=== PATIENT | female | born 1945 | race Caucasian/White ===

== ENCOUNTER 2023-05-03 11:07 | Outpatient (OUT) | payer MEDICARE, OTHER, SELFPAY ==
[2023-05-03 11:45] LABS: Basophils Absolute Auto 0.1 10^3/uL (0.0-0.1); Basophils Percent Auto 0.6 % (0.2-2.0); Eosinophils Absolute Auto 0.2 10^3/uL (0.0-0.7); Eosinophils Percent Auto 1.8 % (0.9-7.0); Hematocrit 43.7 % (36.0-48.0); Hemoglobin 14.1 g/dL (12.0-16.0); Immature Granulocytes Abs Auto 0.06 10^3/uL (0.00-0.03); Immature Granulocytes Pct Auto 0.7 % (0.0-0.5); Lymphocytes Absolute Auto 1.8 10^3/uL (1.2-3.8); Lymphocytes Percent Auto 20.6 % (20.5-60.0); Mean Corpuscular HGB Conc 32.3 g/dL (29.9-35.2); Mean Corpuscular Hemoglobin 30.7 pg (26.7-34.0); Mean Platelet Volume 10.1 fL (9.5-13.5); Monocytes Absolute Auto 0.8 10^3/uL (0.3-0.8); Monocytes Percent Auto 9.7 % (1.7-12.0); Neutrophils Absolute Auto 5.7 10^3/uL (1.4-6.5); Neutrophils Percent Auto 66.6 % (43.0-75.0); Platelet Count 231 10^3/uL (150-450); Red Cell Distribution Width 14.2 % (11.0-15.0); White Blood Count 8.6 10^3/uL (4.0-11.0)
[2023-05-03 11:47] LABS: Estimated Average Glucose 108 mg/dL; Glycohemoglobin A1C 5.4 % (4.5-6.2)
[2023-05-03 12:23] LABS: Anion Gap 14.1; Carbon Dioxide 27.1 mmol/L (21.0-32.0); Chloride 103 mmol/L (98-107); Estimated GFR (African America >60 (>=60); Estimated GFR (Non-African Ame >60 (>=60); Glucose 108 mg/dL (74-106); Potassium 4.2 mmol/L (3.5-5.1); Sodium 140 mmol/L (136-145); Thyroid Stimulating Hormone 1.522 uIU/mL (0.358-3.740)
[2023-05-03 13:04] LABS: D Dimer 1.28 mg/L FEU (<=0.59)
--- NOTE | 2023-05-03 13:52 | US_ITS ---
The [place] [address] Patient Name: MEGAN HERNANDEZ MRN: [id number] date: 1945 Sex: F Assigned Patient Location: LAB Current Patient Location: LAB Accession/Order Number: [id number] Exam Date: 05/03/2023 13:53 Report Date: 05/03/2023 16:14 At the request of: ERIN MCWILLIAMS Procedure: US venous doppler LE BI EXAMINATION: US venous doppler LE BI HISTORY: Bilateral leg pain, Elevated d-dimer R79.89, I83.813 COMPARISON: No relevant comparison available. FINDINGS: REGION: Bilateral lower extremities THROMBI: None. COMPRESSIBILITY: Normal compressibility. FLOW: Normal waveform and antegrade flow between 5 and 20 cm/s. OTHER: None. US/US venous doppler LE BI IMPRESSION: 1. No deep vein thrombus within the right or left lower extremity. Electronically authenticated by: EWELINA HOGUE Date: 05/03/2023 16:14
== END 2023-05-03 11:08 | disposition home or self-care (01) ==
LOC: LAB 11:12
PROVIDERS: PCP Internal Medicine; Visit Provider Internal Medicine
DX: I83.813 Varicose veins of bilateral lower extremities with pain (principal); M79.604 Pain in right leg; R73.01 Impaired fasting glucose; I10 Essential (primary) hypertension; R53.83 Other fatigue; R79.89 Other specified abnormal findings of blood chemistry
CPT/HCPCS: 36415; 80048; 83036; 84443; 85025; 85378; 93970

== ENCOUNTER 2023-06-10 10:03 | Outpatient (OUT) | payer MEDICARE, OTHER, SELFPAY ==
--- NOTE | 2023-06-10 10:07 | MR_ITS ---
The [address] [address] Patient Name: MEGAN HERNANDEZ MRN: [id number] date: 1945 Sex: F Assigned Patient Location: MRI Current Patient Location: MRI Accession/Order Number: [id number] Exam Date: 06/10/2023 10:28 Report Date: 06/10/2023 12:56 At the request of: ERIN MCWILLIAMS Procedure: MR lumbar spine wo con MR lumbar spine wo con, 06/10/2023 10:28 AM EDT INDICATION central stenosis of the spinal canal. COMPARISON: There is no appropriate prior study for comparison. TECHNIQUE: Multiplanar, multisequential MRI images of lumbar spine were obtained without contrast. FINDINGS: For dictation purposes, the lowest complete disc space in the lumbar spine considered as L5-S1. There is normal physiologic lumbar lordosis. The vertebral height is preserved. There is grade 1 anterolisthesis of L4 on L5. Left-sided kidney lesions with T2 prolongation not fully characterized by this study and statistically may suggest simple renal cyst. The conus medullaris is at the level of L1. No signal abnormality within the visualized spinal cord is noted. Level of T12-L1 is unremarkable. No neural foraminal narrowing or canal stenoses at the level of L1-L2 is noted. At the level of L2-L3, there are disc bulge with mild bilateral neuroforaminal narrowing and no canal stenosis. At the level of L3-4, there are disc bulge with moderate right and tamhbwai-mu-rbddge left neuroforaminal narrowing and moderate to severe canal stenosis. There is significant ligamentum flavum thickening and facet joint arthrosis at this level. At the level of L4-5, there are grade 1 anterolisthesis discovering disc with moderate bilateral neuroforaminal narrowing and severe canal stenosis. There is significant ligamentum flavum thickening and facet joint arthrosis at this level. At the level of L5-S1, there are disc bulge with mild left neuroforaminal narrowing and no canal stenosis. The paraspinal muscles are unremarkable. MR/MR lumbar spine wo con IMPRESSION: Moderate degenerative changes of lumbar spine in particular at L3-L4 and L4-L5 with significant neuroforaminal narrowing and severe canal stenosis. Electronically authenticated by: ADA GORE Date: 06/10/2023 12:56
== END 2023-06-10 10:04 | disposition home or self-care (01) ==
LOC: MRI 10:03
PROVIDERS: PCP Internal Medicine; Visit Provider Internal Medicine
DX: M48.00 Spinal stenosis, site unspecified (principal)
CPT/HCPCS: 72148

== ENCOUNTER 2023-08-27 15:21 | Outpatient (OUT) | payer MEDICARE, OTHER, SELFPAY ==
--- NOTE | 2023-08-27 15:36 | XR_ITS ---
The [place] [id number] Patient Name: MEGAN HERNANDEZ MRN: [id number] date: 1945 Sex: F Assigned Patient Location: [facility] Current Patient Location: [facility] Accession/Order Number: [id number] Exam Date: 08/27/2023 15:43 Report Date: 08/28/2023 07:20 At the request of: ERIN MCWILLIAMS Procedure: XR lumbar spine 2-3V EXAMINATION: XR lumbar spine 2-3V HISTORY: Acute Left Sided Low Back Pain M54.50 COMPARISON: No relevant comparison available. FINDINGS: BONES: 6 mm anterolisthesis of L5 in relation L4 and S1. Severe degenerative spondylosis and facet osteoarthropathy DISC SPACES: Moderate to severe multilevel disc space narrowing with endplate sclerosis. Vacuum disc L4-S1 PARASPINOUS: Negative. No paraspinous abnormality is seen. OTHER: Atherosclerosis XR/XR lumbar spine 2-3V IMPRESSION: Moderate to severe degenerative changes Electronically authenticated by: MELANIE BECKER Date: 08/28/2023 07:20
--- NOTE | 2023-08-27 15:36 | XR_ITS ---
The [address] [address] Patient Name: MEGAN HERNANDEZ MRN: [id number] date: 1945 Sex: F Assigned Patient Location: [facility] Current Patient Location: Accession/Order Number: [id number] Exam Date: 08/27/2023 15:43 Report Date: 08/28/2023 07:17 At the request of: ERIN MCWILLIAMS Procedure: XR hip LT 2V w/ pelvis PROCEDURE: XR hip LT 2V w/ pelvis COMPARISON: None. HISTORY: Left Hip PAin M25.552 FINDINGS: BONES:No acute fracture or dislocation. Moderate bilateral hip osteoarthropathy. Moderate to severe degenerative changes of the lumbar spine SOFT TISSUES:Negative. No visible soft tissue swelling. EFFUSION:None visible. OTHER: Negative. XR/XR hip LT 2V w/ pelvis IMPRESSION: Moderate osteoarthritis Electronically authenticated by: MELANIE BECKER Date: 08/28/2023 07:17
== END 2023-08-27 15:22 | disposition home or self-care (01) ==
LOC: RAD 15:23
PROVIDERS: PCP Internal Medicine; Visit Provider Internal Medicine
DX: M54.50 Low back pain, unspecified (principal); M25.552 Pain in left hip; M51.36 Other intervertebral disc degeneration, lumbar region
CPT/HCPCS: 72100; 73502

== ENCOUNTER 2023-10-07 12:23 | Outpatient (OUT) | payer MEDICARE, OTHER, SELFPAY ==
--- OUTSIDE RECORDS SUMMARY | 2023-10-07 12:26 | XMS_ITS | CCD ---
Author Name Unknown Address [address] [place] [address] Organization [facility] Care Team Providers Care Trimmer Operator Name Role Phone BELTRAN, DR ROSI Thornton Primary Care Unavailable ANA, DR CR Admitting Unavailable HAY, DR CR Attending Unavailable HAY, DR CR Consulting Unavailable , Hang Consulting Unavailable GONG, DR ROSI Thornton Primary Care Unavailable PAY, DR CRANE Admitting Unavailable PAY, DR CRANE Attending Unavailable PAY, DR CRANE Consulting Unavailable Monzon, Alvin Consulting Unavailable NILL, DR VIGIL Consulting Unavailable FAWWASarah, Admitting Unavailable FAWDANISH, Attending Unavailable GONG, DR ROSI Thornton Primary Care Unavailable Policaro, Geovani Consulting Unavailable Jessica, Moreno Consulting Unavailable ROBBIE, RIYA Consulting Unavailable FAWWASarah, Consulting Unavailable GONG, DR ROSI Thornton Primary Care Unavailable OJ, DR KHAN Admitting Unavailable BALL, DR KHAN Attending Unavailable BALL, DR KHAN Consulting Unavailable GONG, DR ROSI Thornton Admitting Unavailable GONG, DR ROSI Thornton Attending Unavailable GONG, DR ROSI Thornton Consulting Unavailable GONG, DR ROSI Thornton Primary Care Unavailable Anurag Bolton Unavailable Unavailable Unavailable Anurag Bolton DO Unavailable Carlos Gong Unavailable Anurag Bolton Unavailable Allergies Allergy Classification Reported Allergen(s) Allergy Type Date of Onset Reaction(s) Facility (1 source) patient allergy list reviewed by nurse or physicia Propensity to adverse reactions 8 Comment:Done Ofuz Other (1 source) Allergies Reconciled Propensity to adverse reactions Unknown Ofuz Other Medications Current Medications Medication Drug Class(es) Dates Sig (Normalized) Sig (Original) atenolol 50 mg oral tablet (16 sources) beta-Adrenergic Louis take 1 tablet by mouth every twenty-four hours Atenolol 50 MG 1 tablet Orally Once a day for 90 days Active 24 hr buPROPion hydrochloride 150 mg extended release oral tablet (9 sources) Aminoketone Start: 05-29-2023 take 1 tablet by mouth every twenty-four hours buPROPion HCl ER (XL) 150 MG 1 tablet in the morning Orally Once a day for 30 days May, Active escitalopram 10 mg oral tablet (11 sources) Serotonin Reuptake Inhibitor Start: 05-06-2023 take 1 tablet by mouth every twenty-four hours Escitalopram Oxalate 10 MG 1 tablet Orally Once a day for 30 days Apr, Active FLUoxetine 20 mg oral tablet (20 sources) Serotonin Reuptake Inhibitor Start: 03-08-2022 take 1 capsule by mouth once daily FLUoxetine HCl 20MG FLUoxetine HCl 20MG, 3 (three) Capsule daily # 90, 03/08/2022, Ref. x1. Active Oral daily for 30 *Pick strength-form from Busap for eRX* Feb, Active Start: 12-08-2021 take 3 capsules by m out once daily FLUoxetine (PROZAC) 20 mg capsule Take 60 mg by mouth once daily. 0 12/08/2021 Active Start: 09-06-2021 take 1 capsule by mo ut three times daily FLUoxetine HCl - 20 MG Oral Capsule TAKE 1 CAPSULE 3 times daily Quantity: 0 Refills: 0 Ordered: 06-Sep-2021 DO Start : 06-Sep-2021 Active FLUoxetine HCl 6 0 MG TAKE 3 CAPSULES BY MOUTH EVERY DAY Orally Once a day for 90 days Active Comment on above: Take 60 mg by mouth once daily. Triamcinolone (1 source) Corticosteroid Start: 12-25-2021 Triamcinolone Acetonide 0.1% Triamcinolone Acetonide 0.1%, 1 (one) Application two times daily # 30, 12/25/2021, Ref. x1. Active External two times daily for 30 *Pick strength-form from Busap for eRX* Dec, Active Completed/Discontinued Medications Medication Drug Class(es) Dates Sig (Normalized) Sig (Original) etodolac 500 mg oral tablet (6 sources) Nonsteroidal Anti-inflammatory Drug Start: 12-05-20 23 take 1 tablet by mouth every twelve hours Etodolac 500 MG 1 tablet with food Orally Twice a day for 15 days Aug, Not-Taking/PRN hydroCHLOROthiazide 25 mg oral tablet (17 sources) Thiazide Diuretic Start: 08-02-20 21 take 1 tablet by mouth once daily hydroCHLOROthiazide 25 MG Oral Tablet TAKE 1 TABLET DAILY. Quantity: 0 Refills: 0 Ordered: 02-Aug-2021 DO Start : 02-Aug-2021 Active hydrocortisone 25 mg/ml topical cream (2 sources) Corticosteroid Start: 11-08-19 22 hydrocortisone 2.5 % cream APPLY TO AFFECTED AREAS ON FACE TWICE A DAY FOR FLARES SATURDAY - SATURDAY, WEEKENDS OFF 0 11/08/2021 Active Comment on above: APPLY TO AFFECTED AR EAS ON FACE TWICE A DAY FOR FLARES SATURDAY - SATURDAY, WEEKENDS OFF metoprolol tartrate 50 mg oral tablet (15 sources) beta-Adrenergic Louis Start: 08-15-20 21 take 1 tablet by mouth twice daily Metoprolol Tartrate 50 MG Oral Tablet Take 1 tablet twice daily Quantity: 180 Refills: 3 Ordered: 01-Sep-2021 DO Start : 15-Aug-2021 Active omeprazole 40 mg delayed release oral capsule (16 sources) Proton Pump Inhibitor Start: 11-30-19 21 take 1 capsule by mouth once daily as needed Omeprazole 40 MG Omeprazole 40MG, 1 (one) Capsule daily # 30, 12/08/2021, Ref. x3. Active Oral daily for 0 Nov, Not-Taking/PRN Problems Active Problems Problem Classification Problem Date Documented Da te Episodic/Chronic Abdominal pain (4 sources) Unspecified abdominal pain; Translations: [UNSPECIFIED ABDOMINAL PAIN] Onset: 07-19-2021 Episodic Anxiety disorders (1 source) Other specified anxiety disorders; Translations: [OTHER SPECIFIED ANXIETY DISORDERS] Onset: 09-01-2021 Chronic Cardiac dysrhythmias (13 sources) Paroxysmal atrial fibrillation; Translations: [Paroxysmal atrial fibrillation with RVR] Onset: 09-23-2021 Chronic Complications of surgical procedures or medical care (12 sources) Postprocedural intestinal obstruction, unspecified as to partial versus complete; Translations: [Postprocedural intestinal obstruction, unspecified as to partial versus complete] Episodic Diabetes mellitus without complication (14 sources) Impaired fasting glycemia; Translations: [Impaired fasting glucose] Onset: 06-22-2015 Resolved: 12-23-2021 Episodic Diseases of white blood cells (1 source) Elevated white blood cell count, unspecified; Translations: [ELEVATED WHITE BLOOD CELL COUNT UNS] Onset: 08-21-2021 Chronic Disorders of lipid metabolism (12 sources) Pure hypercholesterolemia ; Translations: [Pure hypercholesterolemia , unspecified] Chronic Disorders of teeth and jaw (1 source) Other specified disorders of teeth and supporting structures; Translations: [OTH SPEC DISORDERS TEETH SUPP STRCT] Onset: 09-01-2021 Episodic Esophageal disorders (20 sources) Chalasia of lower esophageal sphincter; Translations: [Cardiochalasia] Resolved: 12-23-2021 Chronic Esophageal disorders (5 sources) Esophageal disorders; Translations: [Gastro-esophageal reflux disease with esophagitis, without bleeding] Essential hypertension (20 sources) Essential (primary) hypertension; Translations: [Benign essential hypertension] Onset: 05-04-2014 Resolved: 12-23-2021 Chronic Fluid and electrolyte disorders (1 source) Hypokalemia; Translations: [HYPOKALEMIA] Onset: 08-21-2021 Episodic Genitourinary symptoms and ill-defined conditions (13 sources) Personal history of urinary (tract) infections; Translations: [Dysuria] Onset: 08-21-2021 Episodic Intestinal obstruction without hernia (3 sources) Partial intestinal obstruction, unspecified as to cause; Translations: [PART INTESTINAL OBST UNS TO CAU] Onset: 07-29-2021 Episodic Malaise and fatigue (1 source) Other fatigue Episodic Menopausal disorders (15 sources) Menopausal and postmenopausal disorders; Translations: [Menopausal and female climacteric states] Onset: 06-22-2021 Resolved: 06-22-2021 Chronic Mood disorders (20 sources) Depression; Translations: [Recurrent major depression in full remission] Onset: 05-04-2014 Resolved: 12-23-2021 Chronic Osteoarthritis (5 sources) Osteoarthritis of left hip joint; Translations: [Unilateral primary osteoarthritis, left hip] Chronic Other aftercare (1 source) Other joint terminal attack controller (current) drug therapy; Translations: [OTH DIRECTOR EXTERNAL COMMUNICATIONS CURRENT DRUG THERAPY] Onset: 08-21-2021 Episodic Other connective tissue disease (1 source) Pain in right leg Episodic Other diseases of veins and lymphatics (1 source) Lymphedema of bilateral lower limbs; Translations: [Other lymphedema] Chronic Other inflammatory condition of skin (12 sources) Intertrigo; Translations: [Erythema intertrigo] Episodic Other nervous system disorders (1 source) Disorder of the peripheral nervous system; Translations: [Hereditary and idiopathic neuropathy, unspecified] Chronic Other nervous system disorders (14 sources) Sensory neuropathy; Translations: [Polyneuropathy, unspecified] Chronic Other nervous system disorders (2 sources) Polyneuropathy, unspecified; Translations: [Sensory neuropathy G62.9] Onset: 06-22-2021 Resolved: 12-28-2021 Chronic Other nervous system disorders (2 sources) Chronic pain; Translations: [Other chronic pain] Chronic Other nervous system disorders (1 source) Abnormal gait; Translations: [Unspecified abnormalities of gait and mobility] Episodic Other nervous system disorders (12 sources) Paresthesia; Translations: [Paresthesia of skin] Episodic Other non-traumatic joint disorders (2 sources) Pain in left hip Episodic Other nutritional; endocrine; and metabolic disorders (1 source) Obesity, unspecified; Translations: [OBESITY UNSPECIFIED] Onset: 08-21-2021 Chronic Other nutritional; endocrine; and metabolic disorders (1 source) Body mass index (BMI) 35.0-35.9, adult; Translations: [BODY MASS INDEX BMI 35.0-35.9 ADULT] Onset: 08-21-2021 Chronic Other nutritional; endocrine; and metabolic disorders (11 sources) Severe obesity; Translations: [Morbid (severe) obesity due to excess calories] Chronic Other nutritional; endocrine; and metabolic disorders (11 sources) Body mass index 40+ - severely obese; Translations: [Body mass index (BMI) 40.0-44.9, adult] Chronic Other nutritional; endocrine; and metabolic disorders (4 sources) Morbid (severe) obesity due to excess calories Chronic Other nutritional; endocrine; and metabolic disorders (4 sources) Body mass index (BMI) 40.0-44.9, adult Chronic Other screening for suspected conditions (not mental disorders or infectious disease) (2 sources) Blood chemistry abnormal; Translations: [Abnormal finding of blood chemistry, unspecified] Episodic Phlebitis; thrombophlebitis and thromboembolism (14 sources) H/O: Deep vein thrombosis; Translations: [Personal history of venous thrombosis and embolism] Onset: 04-10-2018 Resolved: 12-23-2021 Episodic Residual codes; unclassified (1 source) Acquired absence of both cervix and uterus; Translations: [ACQUIRED ABSENCE BOTH CERVIX AND UTERUS] Onset: 09-01-2021 Episodic Residual codes; unclassified (1 source) Acquired absence of other specified parts of digestive tract; Translations: [ACQ ABSENCE OTH PART DIGESTV TRACT] Onset: 08-21-2021 Episodic Residual codes; unclassified (13 sources) Postmenopausal state; Translations: [Asymptomatic postmenopausal status] Onset: 03-12-2018 Resolved: 12-23-2021 Episodic Residual codes; unclassified (12 sources) Family history of breast cancer; Translations: [Family history of malignant neoplasm of breast] Episodic Spondylosis; intervertebral disc disorders; other back problems (2 sources) Lumbar spondylosis; Translations: [Spondylosis without myelopathy or radiculopathy, lumbar region] Chronic Spondylosis; intervertebral disc disorders; other back problems (20 sources) Spinal stenosis, lumbar region with neurogenic claudication; Translations: [Spinal stenosis of lumbar region] Onset: 04-08-2015 Resolved: 01-26-2022 Episodic Unclassified (1 source) CONTACT W/AND (SUSP) EXPOS COVID-19; Translations: [CONTACT W/AND (SUSP) EXPOS COVID-19] Onset: 08-21-2021 Varicose veins of lower extremity (13 sources) Varicose veins of lower extremity; Translations: [Varicose veins of bilateral lower extremities with pain] Episodic Past or Other Problems Problem Classification Problem Date Documented Da te Episodic/Chronic Cancer of uterus (13 sources) Personal history of malignant neoplasm of other parts of uterus; Translations: [History of malignant neoplasm of female genital organ] Onset: 09-23-2009 Episodic Deficiency and other anemia (12 sources) Anemia; Translations: [Anemia, unspecified] Onset: 06-22-2015 Resolved: 12-23-2021 Episodic Nonmalignant breast conditions (12 sources) Pain of breast; Translations: [Mastodynia] Resolved: 12-23-2021 Episodic Nonspecific chest pain (20 sources) Other chest pain; Translations: [Chest pain, unspecified] Onset: 09-22-2020 Resolved: 12-23-2021 Episodic Other connective tissue disease (12 sources) Pain in limb; Translations: [Pain in right lower leg] Onset: 04-10-2018 Resolved: 12-23-2021 Episodic Other nervous system disorders (1 source) Hereditary peripheral neuropathy; Translations: [Unspecified hereditary and idiopathic peripheral neuropathy] Onset: 06-22-2015 Resolved: 12-23-2021 Chronic Other non-traumatic joint disorders (1 source) Arthralgia of the ankle and/or foot; Translations: [Pain in joint, ankle and foot] Onset: 03-12-2018 Resolved: 12-23-2021 Episodic Other nutritional; endocrine; and metabolic disorders (13 sources) Obesity; Translations: [Obesity, unspecified] Resolved: 01-26-2022 Chronic Other nutritional; endocrine; and metabolic disorders (1 source) Obese class I; Translations: [Body mass index 34.0-34.9, adult] Onset: 04-10-2018 Resolved: 12-23-2021 Chronic Residual codes; unclassified (1 source) Family history of diabetes mellitus; Translations: [Family history of diabetes mellitus] Onset: 05-04-2014 Resolved: 12-23-2021 Episodic Unclassified (1 source) Never smoked tobacco; Translations: [Never a smoker] Unclassified (2 sources) Acute left-sided low back pain without sciatica M54.50 Urinary tract infections (17 sources) Urethral syndrome, unspecified; Translations: [Urinary tract infection, site not specified] Onset: 07-20-2021 Resolved: 12-23-2021 Episodic Results Test Name Value Interpretation Reference Range Facility [facility] 02-01-2022 [facility] Telephone (EVAMN) ARELI HAWKINS ([id number]) 1945 F Date Time Provider Department 02/01/22 MARIE LEA During your visit today, we recorded the following information about you: Marie Lea MD 02/01/2022 11:12 AM Signed Spoke to patient over the phone regarding recent test results. No obvious etiology to her symptoms, and at the last visit was noted that her symptoms were out of proportion to the signs of her physical exam, and suspected that her symptoms may not be entirely due to a polyneuropathy. Could be multifactorial given her spine issues with instrumentation, age, chronic accumulation of microvascular changes. Discussed results with patient, who states her symptoms are about the same as they were at the last office visit. Did request seeing physical therapy locally, and has been doing some aquatic excercises. Is planning for another lumbar spine procedure this summer. Was going to discuss repeat imaging with her local physician, states this has not been performed yet. Has been using some lidocaine cream with some relief. Marie Lea MD Allergies As of Date: 02/01/2022 (No Known Allergies) Date Reviewed: 01/16/2022 Reviewed by: Grecia Clay MA - Fully Assessed Reason for Visit: Results [95] Primary Visit Diagnosis:Abnormality of gait [R26.9] Prescriptions as of 02/01/2022 - atenolol (TENORMIN) 50 mg tablet - FLUoxetine (PROZAC) 20 mg capsule Take 60 mg by mouth once daily. - hydroCHLOROthiazide (HYDRODIURIL, ESIDRIX) 25 mg tablet - hydrocortisone 2.5 % cream APPLY TO AFFECTED AREAS ON FACE TWICE A DAY FOR FLARES SATURDAY - SATURDAY, WEEKENDS OFF Problem List As Of Date: 02/01/2022 (None) Letter Text Encounter Status:Closed by MARIE LEA on 02/01/[address] [facility] IMMUNOFIXATION SCREEN, SERUM on 01-19-2022 MPA Result No M protein is identified. No M protein is identified. [facility] Staff Review (MPA) Reviewed by Lilian Pizarro M.D., Ph.D [facility] METHYLMALONIC ACIDon 022 Methylmalonate [Moles/Vol] 216 nmol/L 79 - 376 nmol/L [facility] RONNIE BY IFA WITH REFLEXon Nuclear Ab IF (S) [Titer] Negative Negative [facility] COPPER BLOODon 01-17-2022 Copper [Mass/Vol] 94 ug/dL 80 - 155 ug/dL [facility] HGB A1Con 01-17-2022 Average glucose Estimated from glycated hemoglobin (Bld) [Mass/Vol] 100 mg/dL [facility] HbA1c (Bld) [Mass fraction] 5.1 % 4.3 - 5.6 % [facility] RONNIE BY IFA WITH REFLEXon Nuclear Ab IF (S) [Titer] Negative Normal Negative [facility] Comment on above: Order Comment: Speci men Type: BLOOD SPECIMEN Ordering Facility: [facility] Address: [address] [place] [address] Result Comment: Anti -nuclear antibody test is used as an aid in diagnosis of systemic autoimmune diseases. Where positive and clinically warranted, follow-up using disease-specific testing is recommended. Low positive titers are not uncommon with advanced age, certain chronic infections, and malignancies among others. Test methodology: Indirect fluorescence immunoassay (IFA) using HEp-2 cells. Performed By: #### A ALBERTINA ROSALES #### [facility] CLIA [id number] [address] [place] [address] OF [facility] C-REACTIVE PROTEIN (CRP)on 0 01-16-2022 CRP [Mass/Vol] mg/L <0.9 mg/dL [facility] CNOVon 01-16-2022 CNOV Office Visit (NENMMN ) ARELI HAWKINS ([id number]) 1945 F Date Time Provider Department 01/16/22 1:00 PM MARIE LEA NEMEMN During your visit today, we recorded the following information about you: Pulse Blood pressure Weight Height 64/minute 150/62 95.3 kg 1.626 m Samantha Lopez MD 01/22/2022 3:56 PM Signed [facility] New Patient Evaluation Consulting Provider: Anurag Bolton (Lauren) [address] [facility] [address] Consultation requested by the above doctor for an opinion regarding polyneuropathy. My final recommendations will be communicated back to the requesting physician by way of shared Medical record or letter to requesting physician via US mail. History of Present Illness: Ms. Stockmaster is a pleasant 76 year old left handed female who presents for evaluation of discomfort in the bilateral feet. PMH of lumbar canal stenosis, HTN, HLD, Depression, GERD, uterine cancer s/p hysterectomy without chemo/radiation. Patient is accompanied by her daughter who helped provide some history. Not many records available through care everywhere, but patient brought a large amount of printed records which were reviewed. Reports that about 7 years ago, started noticing an uncomfortable tingling sensation in her bilateral feet. States that this has gradually progressed, and currently it is about 3-4 inches above her ankles bilaterally. States this is about equal on both sides, and describes this as a relatively constant pins and needles sensation and states that she will also get an associated vibration type feeling. States she feels this has gradually worsened. Has taken gabapentin 600TID for this in the past, reports this made her feel funny, and stopped as she could not tell a difference between taking it or not taking it. Denies being on any other medications for this, including topicals (although notes state that she was on Lyrica 75mg for some time). Denies any symptoms in her hands. Denies karolyn weakness of the legs. States she normally ambulates independenlty, but worried about unsteadiness. States that she has had one fall in the shower, and has near falls maybe every other day. States that she can feel temperature in the shower and feel hot water on her feet, and occasionally has some difficulty finding the pedals when she drives. Did have a workup by a local neurologist in [facility], which performed MR of the lumbar spine where she was found to have marked canal narrowing of the L4-5 secondary to disc bulging, and moderate of greater foraminal narrowing L3-4 and L4-5 (records of imaging 2015). Reports having had more recent imaging, imaging disc not available, and states this was worse. Reports they are planning to go forward with a procedure in the fall of 2021. Denies any neck pain or radicular symptoms going down the arms. Denies any low back pain, and states she has had sciatica type sensation down her legs in the past, but nothing recently. Reports some chronic, mild stress incontinence but states this has been stable. Otherwise denies any bowel or bladder incontinence. Does reports developing dry eyes and dry mouth over the past several months. No history of DM. PMH as above in [facility] Past surgical history includes tonsillectomy, hysterectomy, umbilical hernia reparir Medications: Current Outpatient Medications Medication Sig - atenolol (TENORMIN) 50 mg tablet - FLUoxetine (PROZAC) 20 mg capsule Take 60 mg by mouth once daily. - hydroCHLOROthiazide (HYDRODIURIL, ESIDRIX) 25 mg tablet - hydrocortisone 2.5 % cream APPLY TO AFFECTED AREAS ON FACE TWICE A DAY FOR FLARES SATURDAY - SATURDAY, WEEKENDS OFF No current facility-administered medications for this visit. Allergies: See updated allergies documented below. 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 No* known history of neuromuscular disease otherwise. ROS: CONSTITUTIONAL: No reported fevers, chills, night sweats, or significant unintentional weight loss. EYES: No visual changes indicated. No eye pain or orbital swelling reported. HEENT: No hearing changes or vertiginous symptoms indicated. No history of nose bleeds reported. RESPIRATORY: No reported cough, sputum, wheezing and dyspnea. CARDIOVASCULAR: Negative for significant chest pain, and palpitations per report. GI: Negative for significant abdominal discomfort, blood in stools or black stools reported. No recent reported change in bowel habits. : No reported history of incon (more content not included)... Normal [facility] COPPER BLOODon 01-16-2022 Copper [Mass/Vol] 94 ug/dL Normal 80-155 [facility] Comment on above: Order Comment: Speci men Type: BLOOD SPECIMEN Ordering Facility: [facility] Address: [address] [place] [address] Result Comment: This test was developed and its performance characteristics determined by [facility]'s [facility] [place] ([facility]). It has not been cleared or approved by the FDA. [facility] is regulated under CLIA as qualified to perform high-complexity testing. This test is used for clinical purposes. It should not be regarded as investigational or for research. Performed By: #### A LUIS F ROSALES #### [facility] CLIA [id number] [address] [place] [address] [place] CRP SerPl-mCncon 01-16-2022 CRP [Mass/Vol] mg/L Normal <0.[address] [facility] Comment on above: Order Comment: Speci men Type: BLOOD SPECIMEN Ordering Facility: [facility] Address: [address] [place] [address] Performed By: #### 3 016-3, B12, 1988-01 #### [facility] CLIA [id number] [address] [place] [address] [place] CRYOGLOBULIN, QUAL, REFLEX T O CASSI AND IGG,A,Mon 01-16-2022 CRYOGLOBULIN, QUALITATIVE NEG 72Hour Normal -72Hour [facility] Comment on above: Order Comment: Speci men Type: BLOOD SPECIMEN Ordering Facility: [facility] Address: [address] [place] [address] Result Comment: This test was developed and its performance characteristics determined by [employer]. It has not been cleared or approved by the [place] Food and Drug Administration. This test was performed in a CLIA certified laboratory and is intended for clinical purposes. Performed By: [employer] [address] [place] [id number] Travel Counselor: Hilary Mariano MD Performed By: #### LUIS F JONES #### [facility] CLIA [id number] [address] [place] [address] [place] ESR Westergren method (Bld) [Velocity]on 01-16-2022 ESR (Bld) [Velocity] 8 mm/h 0 - 20 mm/hr [facility] ESR (Bld) [Velocity] 8 mm/h Normal 0-20 [facility] Comment on above: Order Comment: Speci men Type: BLOOD SPECIMEN Ordering Facility: [facility] Address: [address] [place] [address] Performed By: #### 4 537-7 #### [facility] CLIA [id number] [address] [place] [address] HGB A1Con 01-16-2022 Average glucose Estimated from glycated hemoglobin (Bld) [Mass/Vol] 100 mg/dL Normal [facility] Comment on above: Order Comment: Martah castorena Type: BLOOD SPECIMEN Ordering Facility: [facility] Address: [address] [place], [place] [address] Result Comment: eAG: (Estimated average glucose) is a calculated value from HgbA1c and is registered representative of the average blood glucose level in the last 2-3 month period. Performed By: #### H BA1C #### [facility] CLIA [id number] [address] [place] [address] HbA1c (Bld) [Mass fraction] 5.1 % Normal 4.3-5.[address] [facility] Comment on above: Order Comment: Martha castorena Type: BLOOD SPECIMEN Ordering Facility: [facility] Address: [address] [place] [address] Result Comment: Amer ican Diabetes Association guidelines indicate that patients with HgbA1c in the range 5.7-6.4% are at increased risk for development of diabetes, and intervention by lifestyle modification may be beneficial. HgbA1c greater or equal to 6.5% is considered diagnostic of diabetes. Performed By: #### H BA1C #### [facility] CLIA [id number] [address] [place] [address] IMMUNOFIXATION SCREEN, SERUM on 01-16-2022 MPA RESULT No M protein is identified. Normal No M protein is identified. [facility] Comment on above: Order Comment: Martha [facility] Type: BLOOD SPECIMEN Ordering Facility: [facility] Address: [address] [place] [address] Performed By: #### A ALBERTINA ROSALES #### [facility] CLIA [id number] [address] [place], [place] [id number] [place] STAFF REVIEW (MPA) Reviewed by Lilian Pizarro M.D., Ph.D Normal [facility] Comment on above: Order Comment: Speci men Type: BLOOD SPECIMEN Ordering Facility: [facility] Address: [address] [place] [address] Performed By: #### A ALBERTINA ROSALES #### [facility] CLIA [id number] [address] [place] [address] [place] KAPPA/CASTILLO,FREE,SERon 2021 Immunoglobulin light chains.kappa.free (S) [Mass/Vol] 31.2 mg/L High 3.3 - 19.4 mg/L [facility] Immunoglobulin light chains.kappa/Immunog lobulin light chains.lambda (S) [Mass ratio] 1.46 0.26 - 1.65 [facility] Immunoglobulin light chains.lambda.free [Mass/Vol] 21.4 mg/L 5.7 - 26.3 mg/L [facility] Immunoglobulin light chains.kappa.free (S) [Mass/Vol] 31.2 mg/L High 3.3-19.[address] [facility] Comment on above: Order Comment: Speci men Type: BLOOD SPECIMEN Ordering Facility: [facility] Address: [address] [place] [address] Performed By: #### K LFRS #### [facility] CLIA [id number] [address] [place] [address] [place] Immunoglobulin light chains.kappa/Immunog lobulin light chains.lambda (S) [Mass ratio] 1.46 Normal 0.26-1.[address] [facility] Comment on above: Order Comment: Speci men Type: BLOOD SPECIMEN Ordering Facility: [facility] Address: [address] [place] [address] Performed By: #### K LFRS #### [facility] CLIA [id number] [address] [place] [address] [place] Immunoglobulin light chains.lambda.free [Mass/Vol] 21.4 mg/L Normal 5.7-26.[address] [facility] Comment on above: Order Comment: Speci men Type: BLOOD SPECIMEN Ordering Facility: [facility] Address: [address] [place] [address] Performed By: #### K LFRS #### [facility] CLIA [id number] [address] [place] [address] [place] Methylmalonate SerPl-sCncon 01-16-2022 Methylmalonate [Moles/Vol] 216 nmol/L Normal 79-[address] [facility] Comment on above: Order Comment: Speci men Type: BLOOD SPECIMEN Ordering Facility: [facility] Address: [address] [place] [address] Result Comment: This test was developed and its performance characteristics determined by [facility]'s [facility] Pathology and Laboratory Medicine [place] ([facility]). It has not been cleared or approved by the FDA. [facility] is regulated under CLIA as qualified to perform high-complexity testing. This test is used for clinical purposes. It should not be regarded as investigational or for research. Performed By: #### 1 3964-2 #### [facility] CLIA [id number] [address] [place] [address] [place] TSH BLDon 01-16-2022 TSH Qn 1.380 m[IU]/L 0.270 - 4.200 mIU/L [facility] TSH SerPl-aCncon 01-16-2022 TSH Qn 1.380 m[IU]/L Normal 0.270-4.[address] [facility] Comment on above: Order Comment: Speci men Type: BLOOD SPECIMEN Ordering Facility: [facility] Address: [address] [place] [address] Performed By: #### 3 016-3, B12, 1988-01 #### [facility] CLIA [id number] [address] [place] [address] [place] VITAMIN B12 BLOODon 01-17-20 Cobalamin (Vitamin B12) [Mass/Vol] 1194 pg/mL 232-1,245 pg/mL [facility] Cobalamin (Vitamin B12) [Mass/Vol] 1194 pg/mL Normal 232-1,[address] [facility] Comment on above: Order Comment: Speci men Type: BLOOD SPECIMEN Ordering Facility: [facility] Address: [address] [place], [place] [address] Performed By: #### 3 016-3, B12, 1988-01 #### [facility] CLIA [id number] [address] [place] [address] [id number] [place] Office Visit (Cardiology)on 10-05-2021 Follow-up visit Diagnoses/Problems Assessed Never a smoker Paroxysmal atrial fibrillation with RVR (427.31) (I48.0) Essential hypertension, benign (401.1) (I10) Class 1 obesity with body mass index (BMI) of 34.0 to 34.9 in adult (278.00,V85.34) (E66.9,Z68.34) Lymphedema of both lower extremities (457.1) (I89.0) History of DVT (deep vein thrombosis) (V12.51) (Z86.718) Orders Class 1 obesity with body mass index (BMI) of 34.0 to 34.9 in adult Healthy Weight Tips; Status:Complete - Retrospective Authorization; Done: 05Oct2021 Patient Instructions By signing my name below, I, Elise Plaza LPNibnorberto, attest that this documentation has been prepared under the direction and in the presence of Dr. Stephany Kaye MD. All medical record entries made by the Eliseibe were at my direction and personally dictated by me. I have reviewed the chart and agree that the record accurately reflects my personal performance of the history, physical exam, discussion and plan. Please bring all medicines, vitamins, and herbal supplements with you when you come to the office. Prescriptions will not be filled unless you are compliant with your follow up appointments or have a follow up appointment scheduled as per instruction of your physician. Refills should be requested at the time of your visit. Follow up as needed only Chief Complaint ARELI ALYGOLD is being seen for follow-up of a hospitalization for D/C [facility] 08/09/2021. Patient is in the office for the first time after being seen in consultation at [facility] last month for an episode of atrial fibrillation following small bowel surgical release which was short and resolved spontaneously. Her echocardiogram was normal. She has no previous cardiac history but has hypertension on medical therapy. She was discharged home on only beta-louis therapy and hydrochlorothiazide and has done well. She denies any recurrent events of atrial fibrillation and denies any orthopnea PND or dyspnea on exertion. Her physical examination was remarkable for obesity otherwise was unremarkable. I reviewed with the patient the case in details and provide advice as noted below. Assessment/recommendati ons: 1?an episode of atrial fibrillation following small bowel obstruction surgery. No recurrences and no need for long-term therapy with antiarrhythmics or anticoagulation. Echocardiogram was normal risk for CAD is low. 2?hypertension currently under control on hydrochlorothiazide and metoprolol 3?significant obesity encouraged the patient to work on her weight with diet and exercise 4?lymphedema of the lower extremities not consequential 5?history of deep vein thrombosis in the remote past with no recurrences. Follow-up is on a as needed basis. Surgical History Problems History of Cholecystectomy History of Hernia repair History of Hysterectomy History of Small bowel resection History of Tonsillectomy Current Meds Medication NameInstruction FLUoxetine HCl - 20 MG Oral CapsuleTAKE 1 CAPSULE 3 times daily hydroCHLOROthiazide 25 MG Oral TabletTAKE 1 TABLET DAILY. Metoprolol Tartrate 50 MG Oral TabletTake 1 tablet twice daily Omeprazole 40 MG Oral Capsule Delayed ReleaseTAKE 1 CAPSULE Daily Allergies Medication No Known Drug Allergies Recorded By: Giovana Hurd; 10/05/2021 11:55:01 AM Social History Problems Daily caffeine consumption 3 diet pops daily. Never a smoker No alcohol use No illicit drug use Review of Systems Constitutional: not feeling tired. Cardiovascular: no intermittent leg claudication and as noted in HPI. Respiratory: no cough and no shortness of breath. Gastrointestinal: no change in bowel habits and no blood in stools. Integumentary: no skin rashes. Neurological: no seizures and no frequent falls. All other systems have been reviewed and are negative for complaint. Vitals Vital Signs Recorded: 05Oct2021 11:53AM Heart Rate69, L Brachial Artery Azgehiwj790, LUE, Sitting Qszwlkkse52, LUE, Sitting Height5 ft 4 in Sxhvot648 lb BMI Pkeybsnbkt37.67 kg/m2 BSA Calculated1.96 Tobacco Useb) No Fall Screeninga) No falls within the last year Physical Exam Constitutional: alert and in no acute distress. Neck: neck is supple, symmetric, trachea midline, no masses and no thyromegaly . Pulmonary: no increased work of breathing or signs of respiratory distress and lungs clear to auscultation. Cardiovascular: carotid pulses 2+ bilaterally with no bruit , JVP was normal, no thrills , regular rhythm, normal S1 and S2, no murmurs , pedal pulses 2+ bilaterally and no edema . Abdomen: abdomen non-tender, no masses and no hepatomegaly . Skin: skin warm and dry, normal skin turgor . Psychiatric judgment and insight is normal and oriented to person, place and time . Signatures Electronically signed by : Stephany Kaye MD; Oct 05 2021 12:22PM EST (Author) Normal [employer] Tobacco Screening.on 022 Fall risk assessment a) No falls within the last year -[facility] [address] [place] Work Phone: Tobacco use status [facility] b) No -[facility] [address] [place] Work Phone: CULTURE URINEon 09-07-2021 CULTURE URINE Culture Observations : LIGHT GROWTH OF MIXED GENITAL RAMSES. NO POTENTIAL PATHOGENS SEEN. Normal [facility] Comment on above: Performed By: #### B MP #### [facility] [address] [place] [address] Dr. Millie Flores UA RANDOM W/MICROSCOPICon BACTERIA TRACE Abnormal NONE SEEN [facility] Comment on above: Performed By: #### B MP #### [facility] [address] [place] [address] Dr. Millie Flores Bilirubin Ql (U) Negative Normal NEGATIVE [facility] Comment on above: Performed By: #### B MP #### [facility] [address] [place] [address] Dr. Millie Flores CAST NONE SEEN Normal NONE SEEN [facility] Comment on above: Performed By: #### B MP #### [facility] [address] [place] [address] Dr. Millie Flores Clarity (U) CLEAR Normal CLEAR [facility] Comment on above: Performed By: #### B MP #### [facility] [address] [address] [address] Millie Flores Color (U) LT. YELLOW Normal YELLOW [facility] Comment on above: Performed By: #### B MP #### [facility] [address] [place] [address] Dr. Millie Flores Crystals LM Nom (Urine sed) NONE SEEN Normal NONE SEEN [facility] Comment on above: Performed By: #### B MP #### [facility] [address] [address] [address] Millie Flores Epithelial cells LM Ql (Urine sed) FEW Abnormal NONE SEEN /RARE [facility] Comment on above: Performed By: #### B MP #### [facility] [address] [place] [address] Dr. Millie Flores Glucose Ql (U) Negative Normal NEGATIVE [facility] Comment on above: Performed By: #### B MP #### [facility] [address] [place] [address] Dr. Millie Flores Hemoglobin Ql (U) Negative Normal NEGATIVE [facility] Comment on above: Performed By: #### B MP #### [facility] [address] [place] [address] Dr. Millie Flores Ketones Ql (U) Negative Normal NEGATIVE [facility] Comment on above: Performed By: #### B MP #### [facility] [address] [place] [address] Dr. Millie Flores LEUKOCYTES SMALL Abnormal NEGATIVE [facility] Comment on above: Performed By: #### B MP #### [facility] [address] [address] [address] Millie Flores MUCOUS TRACE Abnormal NONE SEEN [facility] Comment on above: Performed By: #### B MP #### [facility] [address] [place] [address] Dr. Millie Flores Nitrite Ql (U) Negative Normal NEGATIVE [facility] Comment on above: Performed By: #### B MP #### [facility] [address] [address] [address] Millie Flores pH (U) 5.5 [pH] Normal 5-9 [facility] Comment on above: Performed By: #### B MP #### [facility] [address] [place] [address] Dr. Millie Flores RBC 0-2 Normal 0-2 [facility] Comment on above: Performed By: #### B MP #### [facility] [address] [place] [address] Dr. Millie Flores SPEC GRAVITY >=1.030 Abnormal 1.005-<=1.02 5 [facility] Comment on above: Performed By: #### B MP #### [facility] [address] [place] [address] Dr. Millie Flores UA PROTEIN Negative Normal NEGATIVE/ TRACE [facility] Comment on above: Performed By: #### B MP #### [facility] [address] [place] [address] Dr. Millie Flores Urobilinogen Qn (U) 0.2 {Robert'U}/dL Normal 0.2 - 1. 0 [facility] Comment on above: Performed By: #### B MP #### [facility] [address] [place] [address] Dr. Millie Flores WBC 5-10 Abnormal NONE SEEN [facility] Comment on above: Performed By: #### B MP #### [facility] [address] [place] [address] Dr. Millie Flores MM screening mammo BI w/CADo n 09-04-2021 MM screening mammo BI w/CAD [facility] [place] [address] [place] [address] Mammography Report Signed Patient: Areli Hawkins MR#: [id number] : 1945 Acct:[id number] Age/Sex: 75 / F ADM Date: 09/02/21 Loc: [place] Room: Type: [facility] Attending Dr: Anurag Bolton DO Ordering Provider: Anurag Bolton DO Date of Service: 09/02/21 MM/MM screening mammo BI w/CAD: SCREENING Copies to: DO Rosi Ballesteros MD CLINICAL DATA: Screening for malignancy. BILATERAL SCREENING MAMMOGRAMS - FULL FIELD DIGITAL WITH TOMOSYNTHESIS AND CAD Tomosynthesis craniocaudal and mediolateral oblique views of both breasts were obtained using low- dose digital technique. Comparison is made to prior studies from March 12, 2018 through January 13, 2020 (left). This examination was reviewed with the aid of CAD. The breast parenchyma has been largely replaced by fat. There are multiple scattered benign as well as vascular calcifications. There are no developing masses, typically malignant calcifications or architectural distortion. There has been no significant interval change. MM/MM screening mammo BI w/CAD IMPRESSION: NO MAMMOGRAPHIC EVIDENCE OF MALIGNANCY. ROUTINE FOLLOW-UP IS RECOMMENDED IN ONE YEAR. RESULT CODE: 2 Benign Findings(s) DENSITY CODE: 1 (<25% glandular) FOLLOW UP: 1YR The false-negative rate of mammography is approximately 10-percent. Management of a palpable abnormality must be based on clinical grounds. Patient was entered into a reminder system with a target due date for the next mammogram. Impression dictated by: Marbella Mistry M.D.09/04/2021 11:34 AM Dictation Location: [facility] Transcribed By: [facility] 09/04/21 113 Dictated By: Marbella Mistry MD 09/04/211130 Signed By: 09/04/21 113 [facility] CBC AUTO DIFFon 08-30-2021 BASO # 0.0 103/ul Normal 0.0-0.1 [facility] Comment on above: Performed By: #### C BC #### [facility] [address] [place] [address] Dr. Millie Flores Basophils/100 WBC (Bld) 0.6 % Normal 0.2-2.0 [facility] Comment on above: Performed By: #### C BC #### [facility] [address] [place] [address] Dr. Millie Flores EO # 0.0 103/ul Normal 0.0-0.7 [facility] Comment on above: Performed By: #### C BC #### [facility] [address] [place] [address] Dr. Millie Flores Eosinophils/100 WBC (Bld) 0.9 % Normal 0.9-7.0 [facility] Comment on above: Performed By: #### C BC #### [facility] [address] [place] [address] Dr. Millie Flores Erythrocyte distribution width (RBC) [Ratio] 48.3 % Critically high 11.0-15.0 [facility] Comment on above: Performed By: #### C BC #### [facility] [address] [place] [address] Dr. Millie Flores Hematocrit (Bld) [Volume fraction] 38.1 % Normal 36.0-48.0 [facility] Comment on above: Performed By: #### C BC #### [facility] [address] [place] [address] Dr. Millie Flores Hemoglobin (Bld) [Mass/Vol] 12.1 g/dL Normal 12.0-16.0 [facility] Comment on above: Performed By: #### C BC #### [facility] [address] [place] [address] Dr. Millie Flores IG # 0.07 10e3/ul Critically high 0.00-0.03 [facility] Comment on above: Performed By: #### C BC #### [facility] [address] [place] [address] Dr. Millie Flores IG % 0.8 % Critically high 0.0-0.5 [facility] Comment on above: Performed By: #### C BC #### [facility] [address] [place] [address] Dr. Millie Flores LYMPH # 2.3 103/ul Normal 1.2-3.8 [facility] Comment on above: Performed By: #### C BC #### [facility] [address] [place] [address] Dr. Millie Flores Lymphocytes/100 WBC (Bld) 26.8 % Normal 20.5-60.0 [facility] Comment on above: Performed By: #### C BC #### [facility] [address] [place] [address] Dr. Millie Flores MANUAL DIFF REQ NO Normal [facility] Comment on above: Performed By: #### C BC #### [facility] [address] [place] [address] Dr. Millie Flores MCH (RBC) [Entitic mass] 30.7 pg Normal 26.7-34.0 [facility] Comment on above: Performed By: #### C BC #### [facility] [address] [place] [address] Dr. Millie Flores MCHC (RBC) [Mass/Vol] 31.8 g/dL Normal 29.9-35.2 [facility] Comment on above: Performed By: #### C BC #### [facility] [address] [place] [address] Dr. Millie Flores MCV (RBC) [Entitic vol] 96.7 fL Normal 81.0-99.0 [facility] Comment on above: Performed By: #### C BC #### [facility] [address] [place] [address] Dr. Millie Flores MONO # 0.9 103/ul Critically high 0.3-0.8 [facility] Comment on above: Performed By: #### C BC #### [facility] [address] [place] [address] Dr. Millie Flores Monocytes/100 WBC (Bld) 11.4 % Normal 1.7-12.0 [facility] Comment on above: Performed By: #### C BC #### [facility] [address] [place] [address] Dr. Millie Flores NEUT # 5.1 103/ul Normal 1.4-6.5 [facility] Comment on above: Performed By: #### C BC #### [facility] [address] [place] [address] Dr. Millie Flores Neutrophils/100 WBC (Bld) 59.5 % Normal 43.0-75.0 [facility] Comment on above: Performed By: #### C BC #### [facility] [address] [place] [address] Dr. Millie Flores Platelet mean volume (Bld) [Entitic vol] 9.5 fL Normal 9.5-13.5 [facility] Comment on above: Performed By: #### C BC #### [facility] [address] [place] [address] Dr. Millie Flores PLT 239 103/ul Normal 150-450 [facility] Comment on above: Performed By: #### C BC #### [facility] [address] [place] [address] Dr. Millie Flores RBC 3.94 106/ul Critically low 4.20-5.40 [facility] Comment on above: Performed By: #### C BC #### [facility] [address] [place] [address] Dr. Millie Flores WBC 8.7 103/ul Normal 4.0-11.0 [facility] Comment on above: Performed By: #### C BC #### [facility] [address] [place] [address] Dr. Millie Flores PROF 14(COMP METB)on 021 Albumin [Mass/Vol] 3.4 g/dL Critically low 3.5-5.0 [facility] Comment on above: Performed By: #### C ALINE HSTROPN #### [facility] [address] [place] [address] Dr. Millie Flores Albumin/Globulin [Mass ratio] 1.0 {ratio} Normal [facility] Comment on above: Performed By: #### C ALINE HSTROPN #### [facility] [address] [place] [address] Dr. Millie Flores ALP [Catalytic activity/Vol] 77 U/L Normal 38-126 [facility] Comment on above: Performed By: #### C ALINE HSTROPN #### [facility] [address] [place] [address] Dr. Millie Flores ALT [Catalytic activity/Vol] 17 U/L Normal 9-52 [facility] Comment on above: Performed By: #### C ALINE HSTROPN #### [facility] [address] [place] [address] Dr. Millie Flores Anion gap [Moles/Vol] 13.1 mmol/L Normal [facility] Comment on above: Performed By: #### C MP, HSTROPN #### [facility] [address] [place] [address] Dr. Millie Flores AST [Catalytic activity/Vol] 19 U/L Normal 14-36 [facility] Comment on above: Performed By: #### C MP, HSTROPN #### [facility] [address] [place] [address] [address] Millie Flores Bilirubin [Mass/Vol] 0.2 mg/dL Normal 0.2-1.3 [facility] Comment on above: Performed By: #### C MP, HSTROPN #### [facility] [address] [place] [address] Dr. Millie Flores Calcium [Mass/Vol] 9.2 mg/dL Normal 8.4-10.2 [facility] Comment on above: Performed By: #### C MP, HSTROPN #### [facility] [address] [place] [address] [address] Millie Flores Chloride [Moles/Vol] 101 mmol/L Normal 98-107 [facility] Comment on above: Performed By: #### C MP, HSTROPN #### [facility] [address] [place] [address] [address] Millie Flores CO2 [Moles/Vol] 26.3 mmol/L Normal 22.0-30.0 [facility] Comment on above: Performed By: #### C MP, HSTROPN #### [facility] [address] [place] [address] [address] Millie Flores Creatinine [Mass/Vol] 0.99 mg/dL Normal 0.52-1.04 [facility] Comment on above: Performed By: #### C MP, HSTROPN #### [facility] [address] [place] [address] [address] Millie Flores EGFR-AF GUAMANIAN >60 Normal >=60 [facility] Comment on above: Performed By: #### C MP, HSTROPN #### [facility] [address] [place] [address] [address] Millie Flores EGFR-NON AF GUAMANIAN 55 mL/min/1.73m2 Critically low >=60 [facility] Comment on above: Performed By: #### C MP, HSTROPN #### [facility] [address] [place] [address] Dr. Millie Flores Globulin (S) [Mass/Vol] 3.8 g/dL Normal [facility] Comment on above: Performed By: #### C MP, HSTROPN #### [facility] [address] [place] [address] Dr. Millie Flores Glucose [Mass/Vol] 111 mg/dL Critically high 74-106 [facility] Comment on above: Performed By: #### C MP, HSTROPN #### [facility] [address] [place] [address] Dr. Millie Flores Potassium [Moles/Vol] 3.4 mmol/L Normal 3.4-5.0 [facility] Comment on above: Performed By: #### C MP, HSTROPN #### [facility] [address] [place] [address] Dr. Millie Flores Protein [Mass/Vol] 7.2 g/dL Normal 6.1-8.2 [facility] Comment on above: Performed By: #### C MP, HSTROPN #### [facility] [address] [place] [address] Dr. Millie Flores Sodium [Moles/Vol] 137 mmol/L Normal 137-145 [facility] Comment on above: Performed By: #### C MP, HSTROPN #### [facility] [address] [place] [address] Dr. Millie Flores Urea nitrogen [Mass/Vol] 12.0 mg/dL Normal 7.0-17.0 [facility] Comment on above: Performed By: #### C MP, HSTROPN #### [facility] [address] [place] [address] Dr. Millie Flores Urea nitrogen/Creatinine [Mass ratio] 12.1 mg/mg Normal [facility] Comment on above: Performed By: #### C ALINE, HSTROPN #### [facility] [address] [place] [address] [address] Millie Flores TROPONIN, HIGH SENSITIVITYon 08-30-2021 HSTROP 6.2 pg/mL Normal 4.0-35.5 [facility] Comment on above: Result Comment: CUT- OFF POINTS HAVE BEEN ESTABLISHED BASED ON THE FOURTH UNIVERSAL DEFINITIONS OF MYOCARDIAL INFARCTION. THE UPPER REFERENCE LIMIT (URL) OF TROPONIN, DEFINED THE 99TH PERCENTILE OF cTnI DISTRIBUTION IN A REFERENCE POPULATION, HAS BEEN CONFIRMED THE DECISION THRESHOLD FOR OK DIAGNOSIS. Performed By: #### C ALINE, HSTROPN #### [facility] [address] [place] [address] [address] Millie Flores XR CHEST 1 Von 08-30-2021 XR CHEST 1 V EXAM: XR CHEST 1 V HISTORY: SHORTNESS OF BREATH COMPARISON: Abdominal x-ray 07/30/2021 TECHNIQUE: Single frontal view chest x-ray FINDINGS: Scattered bilateral lung calcified granulomas and mediastinal hilar calcified lymph nodes. Findings are chronic. No lobar consolidation, large effusions, pneumothorax, or acute bony abnormality. Cardiac size unremarkable. IMPRESSION: Chronic lung parenchymal changes without radiographic evidence for acute chest abnormality. Electronically authenticated by: ALVIN MONZON Date: 2021-08-30 05:42 Normal [facility] Complete Blood Count Auto Di ffon 08-09-2021 Basophils (Bld) [#/Vol] 0.0 10*3/uL Normal 0.0-0.2 [facility] Comment on above: Result Comment: PERF ORMED BY: [place] [address] PATHOLOGIST CLAIMS DIRECTOR ROBYN CASAS M.D. Performed By: #### C BC, LIPASE, LACTIC, CMP #### [facility] [address] [place] [address] Basophils/100 WBC (Bld) 0.3 % Normal . [facility] Comment on above: Performed By: #### C BC, LIPASE, LACTIC, CMP #### [facility] [address] [place] [address] Eosinophils (Bld) [#/Vol] 0.3 10*3/uL Normal 0.0-0.45 [facility] Comment on above: Performed By: #### C BC, LIPASE, LACTIC, CMP #### [address] Eosinophils/100 WBC (Bld) 2.8 % Normal . [facility] Comment on above: Performed By: #### C BC, LIPASE, LACTIC, CMP #### [address] Erythrocyte distribution width (RBC) [Ratio] 14.4 % Normal 11.9-15.3 [facility] Comment on above: Performed By: #### C BC, LIPASE, LACTIC, CMP #### [address] Hematocrit (Bld) [Volume fraction] 32.7 % Low 34.0-46.4 [facility] Comment on above: Performed By: #### C BC, LIPASE, LACTIC, CMP #### [address] Hemoglobin (Bld) [Mass/Vol] 11.0 g/dL Low 11.8-15.4 [facility] Comment on above: Performed By: #### C BC, LIPASE, LACTIC, CMP #### [address] Lymphocytes (Bld) [#/Vol] 1.3 10*3/uL Normal 1.00-4.8 [facility] Comment on above: Performed By: #### C BC, LIPASE, LACTIC, CMP #### [address] Lymphocytes/100 WBC (Bld) 14.0 % Normal . [facility] Comment on above: Performed By: #### C BC, LIPASE, LACTIC, CMP #### [address] MCH (RBC) [Entitic mass] 31.6 pg Normal 24.7-34.3 [facility] Comment on above: Performed By: #### C BC, LIPASE, LACTIC, CMP #### [facility] [address] MCV (RBC) [Entitic vol] 94.0 fL Normal 80-100 [facility] Comment on above: Performed By: #### C BC, LIPASE, LACTIC, CMP #### [address] Mean Corpuscular HGB Conc 33.6 g/dL Normal 32.0-35.0 [facility] Comment on above: Performed By: #### C BC, LIPASE, LACTIC, CMP #### [address] Monocytes (Bld) [#/Vol] 1.3 10*3/uL High 0.0-0.8 [facility] Comment on above: Performed By: #### C BC, LIPASE, LACTIC, CMP #### [address] Monocytes/100 WBC (Bld) 13.7 % Normal . [facility] Comment on above: Performed By: #### C BC, LIPASE, LACTIC, CMP #### [address] Neutrophils (Bld) [#/Vol] 6.5 10*3/uL Normal 1.8-7.7 [facility] Comment on above: Performed By: #### C BC, LIPASE, LACTIC, CMP #### [address] Neutrophils/100 WBC (Bld) 69.2 % Normal . [facility] Comment on above: Performed By: #### C BC, LIPASE, LACTIC, CMP #### [place] [address] [place] Nucleated RBC/100 WBC (Bld) [Ratio] 0.1 % Normal 0-0.5 [facility] Comment on above: Performed By: #### C BC, LIPASE, LACTIC, CMP #### [address] Platelet mean volume (Bld) [Entitic vol] 7.1 fL Normal 6.3-10.7 [facility] Comment on above: Performed By: #### C BC, LIPASE, LACTIC, CMP #### [facility] [address] [place] [address] Platelets (Bld) [#/Vol] 179 10*3/uL Normal 150-450 [facility] Comment on above: Performed By: #### C BC, LIPASE, LACTIC, CMP #### [address] RBC (Bld) [#/Vol] 3.48 10*6/uL Low 3.60-5.00 [facility] Comment on above: Performed By: #### C BC, LIPASE, LACTIC, CMP #### [address] WBC (Bld) [#/Vol] 9.3 10*3/uL Normal 4.5-11.0 [facility] Comment on above: Performed By: #### C BC, LIPASE, LACTIC, CMP #### [address] Comprehensive Metabolic Pane lizy 08-09-2021 Albumin [Mass/Vol] 2.4 g/dL Low 3.2-5.5 [facility] Comment on above: Performed By: #### C BC, LIPASE, LACTIC, CMP #### [address] Albumin/Globulin [Mass ratio] 0.9 {ratio} Normal [facility] Comment on above: Performed By: #### C BC, LIPASE, LACTIC, CMP #### [address] ALP [Catalytic activity/Vol] 53 U/L Normal 32-92 [facility] Comment on above: Performed By: #### C BC, LIPASE, LACTIC, CMP #### [address] ALT [Catalytic activity/Vol] 15 U/L Normal 10-60 [facility] Comment on above: Performed By: #### C BC, LIPASE, LACTIC, CMP #### [facility] [address] AST [Catalytic activity/Vol] 20 U/L Normal 10-42 [facility] Comment on above: Performed By: #### C BC, LIPASE, LACTIC, CMP #### [facility] [address] Bilirubin [Mass/Vol] 0.4 mg/dL Normal 0.3-1.2 [facility] Comment on above: Performed By: #### C BC, LIPASE, LACTIC, CMP #### [address] Calcium [Mass/Vol] 8.1 mg/dL Low 8.2-10.2 [facility] Comment on above: Performed By: #### C BC, LIPASE, LACTIC, CMP #### [address] Chloride [Moles/Vol] 102 mmol/L Normal 95-114 [facility] Comment on above: Performed By: #### C BC, LIPASE, LACTIC, CMP #### [address] CO2 [Moles/Vol] 29.7 mmol/L Normal 22.0-30.0 [facility] Comment on above: Performed By: #### C BC, LIPASE, LACTIC, CMP #### [address] Creatinine [Mass/Vol] 0.57 mg/dL Normal 0.44-1.03 [facility] Comment on above: Performed By: #### C BC, LIPASE, LACTIC, CMP #### [address] Creatinine Clr Calc Pharmacy 73.94 Normal [facility] Comment on above: Result Comment: PERF ORMED BY: [place] [address] PATHOLOGIST CLAIMS DIRECTOR ROBYN CASAS M.D. Performed By: #### C BC, LIPASE, LACTIC, CMP #### [address] Estimated GFR ( Joey > 60 Normal [facility] Comment on above: Result Comment: GFR estimated reference range: According to KDOQI guidelines, <60 ml/min/1.73m2 is sufficient to diagnose a patient with chronic kidney disease. Performed By: #### C BC, LIPASE, LACTIC, CMP #### [address] Estimated GFR (Non- Am > 60 Normal [facility] Comment on above: Performed By: #### C BC, LIPASE, LACTIC, CMP #### [address] Globulin (S) [Mass/Vol] 2.6 g/dL [facility] Comment on above: Performed By: #### C BC, LIPASE, LACTIC, CMP #### [address] Glucose [Mass/Vol] 104 mg/dL High 70-100 [facility] Comment on above: Result Comment: [place] Glucose Reference Range is dependent on time and content of last meal. Glucose of more than 200 mg/dL in a nonstressed, ambulatory subject supports the diagnosis of Diabetes Mellitus. ADA recommended reference range Performed By: #### C BC, LIPASE, LACTIC, CMP #### [address] Potassium [Moles/Vol] 3.4 mmol/L Low 3.5-5.1 [facility] Comment on above: Performed By: #### C BC, LIPASE, LACTIC, CMP #### [address] Protein [Mass/Vol] 5.0 g/dL Low 6.1-7.9 [facility] Comment on above: Performed By: #### C BC, LIPASE, LACTIC, CMP #### [address] Sodium [Moles/Vol] 140 mmol/L Normal 136-146 [facility] Comment on above: Performed By: #### C BC, LIPASE, LACTIC, CMP #### [address] Urea nitrogen [Mass/Vol] 9 mg/dL Normal 06-15 [facility] Comment on above: Performed By: #### C BC, LIPASE, LACTIC, CMP #### [address] Glucose Poct Glucometerson 1 10-09-2020 Glucose [Mass/Vol] 108 mg/dL Normal [facility] Comment on above: Result Comment: [place] om Glucose Reference Range is dependent on time and content of last meal. Glucose of more than 200 mg/dL in a nonstressed, ambulatory subject supports the diagnosis of Diabetes Mellitus. PERFORMED BY: [place] [address] PATHOLOGIST CLAIMS DIRECTOR ROBYN CASAS M.D. Performed By: #### C BC, LIPASE, LACTIC, CMP #### [address] Glucose [Mass/Vol] 87 mg/dL Normal [facility] Comment on above: Result Comment: [place] om Glucose Reference Range is dependent on time and content of last meal. Glucose of more than 200 mg/dL in a nonstressed, ambulatory subject supports the diagnosis of Diabetes Mellitus. PERFORMED BY: [place] [address] PATHOLOGIST CLAIMS DIRECTOR ROBYN CASAS M.D. Performed By: #### C BC, LIPASE, LACTIC, CMP #### [address] Glucose [Mass/Vol] 102 mg/dL Normal [facility] Comment on above: Result Comment: [place] om Glucose Reference Range is dependent on time and content of last meal. Glucose of more than 200 mg/dL in a nonstressed, ambulatory subject supports the diagnosis of Diabetes Mellitus. PERFORMED BY: [place] [address] PATHOLOGIST CLAIMS DIRECTOR ROBYN CASAS M.D. Performed By: #### C BC, LIPASE, LACTIC, CMP #### [address] Complete Blood Count Auto Di ffon 08-08-2021 Basophils (Bld) [#/Vol] 0.0 10*3/uL Normal 0.0-0.2 [facility] Comment on above: Result Comment: PERF ORMED BY: [place] [address] PATHOLOGIST CLAIMS DIRECTOR ROBYN CASAS M.D. Performed By: #### C BC, LIPASE, LACTIC, CMP #### [address] Basophils/100 WBC (Bld) 0.2 % Normal . [facility] Comment on above: Performed By: #### C BC, LIPASE, LACTIC, CMP #### [address] Eosinophils (Bld) [#/Vol] 0.2 10*3/uL Normal 0.0-0.45 [facility] Comment on above: Performed By: #### C BC, LIPASE, LACTIC, CMP #### [address] Eosinophils/100 WBC (Bld) 2.2 % Normal . [facility] Comment on above: Performed By: #### C BC, LIPASE, LACTIC, CMP #### [address] Erythrocyte distribution width (RBC) [Ratio] 14.0 % Normal 11.9-15.3 [facility] Comment on above: Performed By: #### C BC, LIPASE, LACTIC, CMP #### [address] Hematocrit (Bld) [Volume fraction] 31.5 % Low 34.0-46.4 [facility] Comment on above: Performed By: #### C BC, LIPASE, LACTIC, CMP #### [address] Hemoglobin (Bld) [Mass/Vol] 10.6 g/dL Low 11.8-15.4 [facility] Comment on above: Performed By: #### C BC, LIPASE, LACTIC, CMP #### [address] Lymphocytes (Bld) [#/Vol] 1.1 10*3/uL Normal 1.00-4.8 [facility] Comment on above: Performed By: #### C BC, LIPASE, LACTIC, CMP #### [address] Lymphocytes/100 WBC (Bld) 11.8 % Normal . [facility] Comment on above: Performed By: #### C BC, LIPASE, LACTIC, CMP #### [address] MCH (RBC) [Entitic mass] 31.7 pg Normal 24.7-34.3 [facility] Comment on above: Performed By: #### C BC, LIPASE, LACTIC, CMP #### [address] MCV (RBC) [Entitic vol] 94.3 fL Normal 80-100 [facility] Comment on above: Performed By: #### C BC, LIPASE, LACTIC, CMP #### [address] Mean Corpuscular HGB Conc 33.6 g/dL Normal 32.0-35.0 [facility] Comment on above: Performed By: #### C BC, LIPASE, LACTIC, CMP #### [address] Monocytes (Bld) [#/Vol] 1.1 10*3/uL High 0.0-0.8 [facility] Comment on above: Performed By: #### C BC, LIPASE, LACTIC, CMP #### [place] [address] [place] Monocytes/100 WBC (Bld) 11.6 % Normal . [facility] Comment on above: Performed By: #### C BC, LIPASE, LACTIC, CMP #### [address] Neutrophils (Bld) [#/Vol] 6.8 10*3/uL Normal 1.8-7.7 [facility] Comment on above: Performed By: #### C BC, LIPASE, LACTIC, CMP #### [address] Neutrophils/100 WBC (Bld) 74.2 % Normal . [facility] Comment on above: Performed By: #### C BC, LIPASE, LACTIC, CMP #### [address] Nucleated RBC/100 WBC (Bld) [Ratio] 0.0 % Normal 0-0.5 [facility] Comment on above: Performed By: #### C BC, LIPASE, LACTIC, CMP #### [address] Platelet mean volume (Bld) [Entitic vol] 7.1 fL Normal 6.3-10.7 [facility] Comment on above: Performed By: #### C BC, LIPASE, LACTIC, CMP #### [address] Platelets (Bld) [#/Vol] 173 10*3/uL Normal 150-450 [facility] Comment on above: Performed By: #### C BC, LIPASE, LACTIC, CMP #### [address] RBC (Bld) [#/Vol] 3.34 10*6/uL Low 3.60-5.00 [facility] Comment on above: Performed By: #### C BC, LIPASE, LACTIC, CMP #### [address] WBC (Bld) [#/Vol] 9.2 10*3/uL Normal 4.5-11.0 [facility] Comment on above: Performed By: #### C BC, LIPASE, LACTIC, CMP #### [address] Comprehensive Metabolic Pane lizy 08-08-2021 Albumin [Mass/Vol] 2.2 g/dL Low 3.2-5.5 [facility] Comment on above: Performed By: #### C BC, LIPASE, LACTIC, CMP #### [facility] [address] Albumin/Globulin [Mass ratio] 0.9 {ratio} Normal [facility] Comment on above: Performed By: #### C BC, LIPASE, LACTIC, CMP #### [facility] [address] ALP [Catalytic activity/Vol] 43 U/L Normal 32-92 [facility] Comment on above: Performed By: #### C BC, LIPASE, LACTIC, CMP #### [facility] [address] ALT [Catalytic activity/Vol] 16 U/L Normal 10-60 [facility] Comment on above: Performed By: #### C BC, LIPASE, LACTIC, CMP #### [facility] [address] AST [Catalytic activity/Vol] 18 U/L Normal 10-42 [facility] Comment on above: Performed By: #### C BC, LIPASE, LACTIC, CMP #### [facility] [address] Bilirubin [Mass/Vol] 0.4 mg/dL Normal 0.3-1.2 [facility] Comment on above: Performed By: #### C BC, LIPASE, LACTIC, CMP #### [facility] [address] [place] [address] Calcium [Mass/Vol] 8.1 mg/dL Low 8.2-10.2 [facility] Comment on above: Performed By: #### C BC, LIPASE, LACTIC, CMP #### [facility] [address] [place] [address] [place] Chloride [Moles/Vol] 102 mmol/L Normal 95-114 [facility] Comment on above: Performed By: #### C BC, LIPASE, LACTIC, CMP #### [facility] [address] CO2 [Moles/Vol] 29.1 mmol/L Normal 22.0-30.0 [facility] Comment on above: Performed By: #### C BC, LIPASE, LACTIC, CMP #### [address] Creatinine [Mass/Vol] 0.51 mg/dL Normal 0.44-1.03 [facility] Comment on above: Performed By: #### C BC, LIPASE, LACTIC, CMP #### [address] Creatinine Clr Calc Pharmacy 72.99 [facility] Comment on above: Performed By: #### C BC, LIPASE, LACTIC, CMP #### [address] Estimated GFR ( Joey > 60 [facility] Comment on above: Result Comment: GFR estimated reference range: According to KDOQI guidelines, <60 ml/min/1.73m2 is sufficient to diagnose a patient with chronic kidney disease. Performed By: #### C BC, LIPASE, LACTIC, CMP #### [address] Estimated GFR (Non- Am > 60 Normal [facility] Comment on above: Performed By: #### C BC, LIPASE, LACTIC, CMP #### [address] Globulin (S) [Mass/Vol] 2.5 g/dL [facility] Comment on above: Performed By: #### C BC, LIPASE, LACTIC, CMP #### [address] Glucose [Mass/Vol] 149 mg/dL High 70-100 [facility] Comment on above: Result Comment: [place] Glucose Reference Range is dependent on time and content of last meal. Glucose of more than 200 mg/dL in a nonstressed, ambulatory subject supports the diagnosis of Diabetes Mellitus. ADA recommended reference range Performed By: #### C BC, LIPASE, LACTIC, CMP #### [address] Potassium [Moles/Vol] 3.6 mmol/L Normal 3.5-5.1 [facility] Comment on above: Performed By: #### C BC, LIPASE, LACTIC, CMP #### [facility] [address] Protein [Mass/Vol] 4.7 g/dL Low 6.1-7.9 [facility] Comment on above: Performed By: #### C BC, LIPASE, LACTIC, CMP #### [facility] [address] Sodium [Moles/Vol] 140 mmol/L Normal 136-146 [facility] Comment on above: Performed By: #### C BC, LIPASE, LACTIC, CMP #### [facility] [address] Urea nitrogen [Mass/Vol] 10 mg/dL Normal 9-23 [facility] Comment on above: Performed By: #### C BC, LIPASE, LACTIC, CMP #### [facility] [address] Glucose Poct Glucometerson 1 2020 Glucose [Mass/Vol] 102 mg/dL Normal [facility] Comment on above: Result Comment: [place] Glucose Reference Range is dependent on time and content of last meal. Glucose of more than 200 mg/dL in a nonstressed, ambulatory subject supports the diagnosis of Diabetes Mellitus. PERFORMED BY: [place] [address] PATHOLOGIST CLAIMS DIRECTOR ROBYN CASAS M.D. Performed By: #### C BC, LIPASE, LACTIC, CMP #### [facility] [address] [place] [address] Commemt1 Glu2: Cleaned Meter Normal [facility] Comment on above: Result Comment: PERF ORMED BY: [place] [address] PATHOLOGIST CLAIMS DIRECTOR ROBYN CASAS M.D. Performed By: #### C BC, LIPASE, LACTIC, CMP #### [facility] [address] Glucose [Mass/Vol] 123 mg/dL Normal [facility] Comment on above: Result Comment: [place] om Glucose Reference Range is dependent on time and content of last meal. Glucose of more than 200 mg/dL in a nonstressed, ambulatory subject supports the diagnosis of Diabetes Mellitus. Performed By: #### C BC, LIPASE, LACTIC, CMP #### [address] Commemt1 Glu2: Cleaned Meter Normal [facility] Comment on above: Result Comment: PERF ORMED BY: [place] [address] PATHOLOGIST CLAIMS DIRECTOR ROBYN CASAS M.D. Performed By: #### C BC, LIPASE, LACTIC, CMP #### [address] Glucose [Mass/Vol] 125 mg/dL Normal [facility] Comment on above: Result Comment: [place] om Glucose Reference Range is dependent on time and content of last meal. Glucose of more than 200 mg/dL in a nonstressed, ambulatory subject supports the diagnosis of Diabetes Mellitus. Performed By: #### C BC, LIPASE, LACTIC, CMP #### [address] Commemt1 Glu2: Cleaned Meter [facility] Comment on above: Result Comment: PERF ORMED BY: [place] [address] PATHOLOGIST CLAIMS DIRECTOR ROBYN CASAS M.D. Performed By: #### C BC, LIPASE, LACTIC, CMP #### [address] Glucose [Mass/Vol] 141 mg/dL Normal [facility] Comment on above: Result Comment: [place] om Glucose Reference Range is dependent on time and content of last meal. Glucose of more than 200 mg/dL in a nonstressed, ambulatory subject supports the diagnosis of Diabetes Mellitus. Performed By: #### C BC, LIPASE, LACTIC, CMP #### [address] Ironon 08-08-2021 Iron [Mass/Vol] 15 ug/dL Low 40-150 [facility] Comment on above: Performed By: #### C BC, LIPASE, LACTIC, CMP #### [facility] [address] Magnesiumon 08-08-2021 Magnesium [Mass/Vol] 2.0 mg/dL Normal 1.6-2.6 [facility] Comment on above: Performed By: #### C BC, LIPASE, LACTIC, CMP #### [address] Phosphoruson 08-08-2021 Phosphate [Mass/Vol] 3.2 mg/dL Normal 2.5-4.6 [facility] Comment on above: Performed By: #### C BC, LIPASE, LACTIC, CMP #### [address] Total Iron Binding Capacityo n 08-08-2021 Total Iron Binding Capacity 162 ug/dL Low 255-450 [facility] Comment on above: Performed By: #### C BC, LIPASE, LACTIC, CMP #### [address] Transferrin [Mass/Vol] 116 mg/dL Low 180-380 [facility] Comment on above: Performed By: #### C BC, LIPASE, LACTIC, CMP #### [address] Vit. B12/Folate Profileon Cobalamin (Vitamin B12) [Mass/Vol] 1000 pg/mL High 180-914 [facility] Comment on above: Performed By: #### C BC, LIPASE, LACTIC, CMP #### [address] Folate 16.3 ng/mL Normal >5.9 [facility] Comment on above: Result Comment: Anita te reference range: >5.9 ng/ml The WHO technical consultation on folate and vitamin b12 deficiencies has determined that folate concentrations less than 4 ng/ml are considered deficient. PERFORMED BY: [place] [address] PATHOLOGIST CLAIMS DIRECTOR ROBYN CASAS M.D. Performed By: #### C BC, LIPASE, LACTIC, CMP #### [facility] [address] Basic Metabolic Panelon 11- Calcium [Mass/Vol] 7.9 mg/dL Low 8.2-10.2 [facility] Comment on above: Performed By: #### C BC, LIPASE, LACTIC, CMP #### [facility] [address] Chloride [Moles/Vol] 105 mmol/L Normal 95-114 [facility] Comment on above: Performed By: #### C BC, LIPASE, LACTIC, CMP #### [address] CO2 [Moles/Vol] 27.9 mmol/L Normal 22.0-30.0 [facility] Comment on above: Performed By: #### C BC, LIPASE, LACTIC, CMP #### [address] Creatinine [Mass/Vol] 0.50 mg/dL Normal 0.44-1.03 [facility] Comment on above: Performed By: #### C BC, LIPASE, LACTIC, CMP #### [address] Creatinine Clr Calc Pharmacy 72.99 [facility] Comment on above: Performed By: #### C BC, LIPASE, LACTIC, CMP #### [address] Estimated GFR ( Joey > 60 [facility] Comment on above: Result Comment: GFR estimated reference range: According to KDOQI guidelines, <60 ml/min/1.73m2 is sufficient to diagnose a patient with chronic kidney disease. Performed By: #### C BC, LIPASE, LACTIC, CMP #### [address] Estimated GFR (Non- Am > 60 [facility] Comment on above: Performed By: #### C BC, LIPASE, LACTIC, CMP #### [address] Glucose [Mass/Vol] 135 mg/dL High 70-100 [facility] Comment on above: Result Comment: [place] Glucose Reference Range is dependent on time and content of last meal. Glucose of more than 200 mg/dL in a nonstressed, ambulatory subject supports the diagnosis of Diabetes Mellitus. ADA recommended reference range Performed By: #### C BC, LIPASE, LACTIC, CMP #### [facility] [address] Potassium [Moles/Vol] 3.5 mmol/L Normal 3.5-5.1 [facility] Comment on above: Performed By: #### C BC, LIPASE, LACTIC, CMP #### [facility] [address] Sodium [Moles/Vol] 140 mmol/L Normal 136-146 [facility] Comment on above: Performed By: #### C BC, LIPASE, LACTIC, CMP #### [address] Urea nitrogen [Mass/Vol] 10 mg/dL Normal 9-23 [facility] Comment on above: Performed By: #### C BC, LIPASE, LACTIC, CMP #### [address] Complete Blood Count Auto Di ffon 08-07-2021 Basophils (Bld) [#/Vol] 0.0 10*3/uL Normal 0.0-0.2 [facility] Comment on above: Result Comment: PERF ORMED BY: [place] [address] PATHOLOGIST CLAIMS DIRECTOR ROBYN CASAS M.D. Performed By: #### C BC, LIPASE, LACTIC, CMP #### [facility] [address] [place] [address] [place] Basophils/100 WBC (Bld) 0.4 % Normal . [facility] Comment on above: Performed By: #### C BC, LIPASE, LACTIC, CMP #### [facility] [address] Eosinophils (Bld) [#/Vol] 0.1 10*3/uL Normal 0.0-0.45 [facility] Comment on above: Performed By: #### C BC, LIPASE, LACTIC, CMP #### [address] Eosinophils/100 WBC (Bld) 1.4 % Normal . [facility] Comment on above: Performed By: #### C BC, LIPASE, LACTIC, CMP #### [address] Erythrocyte distribution width (RBC) [Ratio] 14.3 % Normal 11.9-15.3 [facility] Comment on above: Performed By: #### C BC, LIPASE, LACTIC, CMP #### [address] Hematocrit (Bld) [Volume fraction] 31.9 % Low 34.0-46.4 [facility] Comment on above: Performed By: #### C BC, LIPASE, LACTIC, CMP #### [address] Hemoglobin (Bld) [Mass/Vol] 10.8 g/dL Low 11.8-15.4 [facility] Comment on above: Performed By: #### C BC, LIPASE, LACTIC, CMP #### [address] Lymphocytes (Bld) [#/Vol] 1.2 10*3/uL Normal 1.00-4.8 [facility] Comment on above: Performed By: #### C BC, LIPASE, LACTIC, CMP #### [address] Lymphocytes/100 WBC (Bld) 11.7 % Normal . [facility] Comment on above: Performed By: #### C BC, LIPASE, LACTIC, CMP #### [address] MCH (RBC) [Entitic mass] 31.7 pg Normal 24.7-34.3 [facility] Comment on above: Performed By: #### C BC, LIPASE, LACTIC, CMP #### [address] MCV (RBC) [Entitic vol] 94.3 fL Normal 80-100 [facility] Comment on above: Performed By: #### C BC, LIPASE, LACTIC, CMP #### [address] Mean Corpuscular HGB Conc 33.7 g/dL Normal 32.0-35.0 [facility] Comment on above: Performed By: #### C BC, LIPASE, LACTIC, CMP #### [address] Monocytes (Bld) [#/Vol] 1.3 10*3/uL High 0.0-0.8 [facility] Comment on above: Performed By: #### C BC, LIPASE, LACTIC, CMP #### [address] Monocytes/100 WBC (Bld) 12.8 % Normal . [facility] Comment on above: Performed By: #### C BC, LIPASE, LACTIC, CMP #### [address] Neutrophils (Bld) [#/Vol] 7.8 10*3/uL High 1.8-7.7 [facility] Comment on above: Performed By: #### C BC, LIPASE, LACTIC, CMP #### [address] Neutrophils/100 WBC (Bld) 73.7 % Normal . [facility] Comment on above: Performed By: #### C BC, LIPASE, LACTIC, CMP #### [place] [address] [place] Nucleated RBC/100 WBC (Bld) [Ratio] 0.0 % Normal 0-0.5 [facility] Comment on above: Performed By: #### C BC, LIPASE, LACTIC, CMP #### [address] Platelet mean volume (Bld) [Entitic vol] 7.1 fL Normal 6.3-10.7 [facility] Comment on above: Performed By: #### C BC, LIPASE, LACTIC, CMP #### [facility] [address] Platelets (Bld) [#/Vol] 177 10*3/uL Normal 150-450 [facility] Comment on above: Performed By: #### C BC, LIPASE, LACTIC, CMP #### [facility] [address] RBC (Bld) [#/Vol] 3.39 10*6/uL Low 3.60-5.00 [facility] Comment on above: Performed By: #### C BC, LIPASE, LACTIC, CMP #### [facility] [address] WBC (Bld) [#/Vol] 10.5 10*3/uL Normal 4.5-11.0 [facility] Comment on above: Performed By: #### C BC, LIPASE, LACTIC, CMP #### [facility] [address] E[facility] echo transthoracicon [facility], 1928–1983 echo transthoracic [facility] Main [place] [address] [place] [address] Echocardiogram Signed Patient: Areli Hawkins MR#: [id number] : 1945 Acct:[id number] Age/Sex: 75 / F ADM Date: 08/01/21 Loc: Room: [address] [place] [address] Type: ADM IN Attending Dr: Tony Klein DO Ordering Provider: Leora Hendricks MD Date of Service: 08/07/21 [facility], 1928–1983/[facility], 1928[facility]1983 echo transthoracic: Change in heart rhythm Copies to: MD Yaritza Savage DO Height: 64 in Weight: 226 lb Performed By: GABBI Simon BSA: 2.1 m2 BP: 146/76 mmHg HR: 79 Reason For Study: Change in heart rhythm History: HTN. Interpretation Summary The left ventricular size and thickness are normal. Ejection Fraction = 60-65%. The left ventricular wall motion is normal. Trace aortic regurgitation. There is mild mitral regurgitation. There is trace tricuspid regurgitation. There is no comparison study available. Procedure/Quality: A two-dimensional transthoracic echocardiogram with color flow and Doppler was performed. The study was technically fair in quality. Left Ventricle: The left ventricular size and thickness are normal. Ejection Fraction = 60-65%. The left ventricular wall motion is normal. No left ventricular thrombus or mass is seen. Left Atrium: The left atrium appears normal in size. Right Atrium: The right atrium appears normal in size. Right Ventricle: The right ventricle is normal in size and function. Aortic Valve: The aortic valve is mildly sclerotic. No hemodynamically significant valvular aortic stenosis. Trace aortic regurgitation. Mitral Valve: The mitral valve is normal. There is no mitral valve stenosis. There is mild mitral regurgitation. Tricuspid Valve: The tricuspid valve is normal in structure and function. There is trace tricuspid regurgitation. Pulmonic Valve: The pulmonic valve is not well seen, but is grossly normal. Arteries: The aortic root is normal size. Pericardium/Pleura: No pericardial effusion seen. IVC/Hepatic Viens: The IVC is normal in size with an inspiratory collapse of greater then 50%, suggesting normal right atrial pressure. Measurements with Normals IVSd: 0.86 cm (0.7-1.1 cm)LVIDd: 3.8 cm (3.7-5.4 cm) LVPWd: 0.91 cm (0.7-1.1 cm)LVIDs: 2.4 cm (2.3-3.6 cm) LA dimension: 2.7 cm(2.3-4.0 cm)Ao root diam: 2.5 cm(2.0-3.6 cm) Doppler with Normals RVSP(TR): 24.6 mmHg (18-35mmHg) LV V1 max: 126.4 cm/sec (0.7-1.7m/s)MV E max nimco: 103.0 cm/sec(0.8-1.3m/s) MV A max nimco: 88.1 cm/sec(0.0-0.0m/s) MV E/A: 1.2 (<1.5) MMode/2D Measurements Calculations TAPSE: 3.5 cm FS: 37.6 % Ao root area: 4.8 cm2 LVLd ap4: 6.9 cm RV S Nimco: EDV(Teich): EDV(MOD-sp4): 14.5 cm/sec 61.6 ml 53.8 ml ESV(Teich): LVLs ap4: 6.0 cm 19.4 ml ESV(MOD-sp4): EF(Teich): 68.5 % 20.5 ml EF(MOD-sp4): 61.9 % __ SV(MOD-sp4): LAV(MOD-sp4): LA A2 area: 17.0 cm2 33.3 ml 62.6 ml LAV(MOD-sp2): LA A4 area: 22.0 cm2 44.8 ml LA length (vol): 6.3 cm LA vol: 50.4 ml LA vol index: 24.5 ml/m2 Doppler Measurements Calculations MV dec time: E/E' lat: 12.6 MV dec slope: Ao V2 max: 0.20 sec E/E' med: 8.8 195.5 cm/sec 521.5 cm/sec2 Ao max P.3 mmHg Ao mean P.8 mmHg Ao V2 mean: 130.9 cm/sec Ao V2 VTI: 39.6 cm __ LV V1 max PG: TV max PG: TR max nimco: 6.4 mmHg 22.0 mmHg 232.1 cm/sec LV V1 mean PG: TR max P.6 mmHg 2.9 mmHg RAP systole: 3.0 mmHg LV V1 mean: 76.7 cm/sec LV V1 VTI: 28.9 cm Transcribed By: MIRTA 08/07/21 1430 Dictated By: Yaritza Canchola DO 08/07/21 2587 Signed By: 08/07/21 9425 [facility] Free T4 (Free Thyroxine)on 10-07-2020 Free T4 [Mass/Vol] 1.02 ng/dL Normal 0.61-1.12 [facility] Comment on above: Performed By: #### C BC, LIPASE, LACTIC, CMP #### [facility] [address] [place] [id number] [facility] Glucose Poct Glucometerson 1 10-07-2020 Commemt1 Glu2: Cleaned Meter [facility] Comment on above: Result Comment: PERF ORMED BY: [place] [address] PATHOLOGIST CLAIMS DIRECTOR ROBYN CASAS M.D. Performed By: #### C BC, LIPASE, LACTIC, CMP #### [address] Glucose [Mass/Vol] 104 mg/dL Normal [facility] Comment on above: Result Comment: [place] om Glucose Reference Range is dependent on time and content of last meal. Glucose of more than 200 mg/dL in a nonstressed, ambulatory subject supports the diagnosis of Diabetes Mellitus. Performed By: #### C BC, LIPASE, LACTIC, CMP #### [address] Glucose [Mass/Vol] 125 mg/dL Normal [facility] Comment on above: Result Comment: [place] om Glucose Reference Range is dependent on time and content of last meal. Glucose of more than 200 mg/dL in a nonstressed, ambulatory subject supports the diagnosis of Diabetes Mellitus. Performed By: #### C BC, LIPASE, LACTIC, CMP #### [address] Commemt1 Glu2: Cleaned Meter [facility] Comment on above: Result Comment: PERF ORMED BY: [place] [address] PATHOLOGIST CLAIMS DIRECTOR ROBYN CASAS M.D. Performed By: #### C BC, LIPASE, LACTIC, CMP #### [address] Glucose [Mass/Vol] 109 mg/dL Normal [facility] Comment on above: Result Comment: [place] om Glucose Reference Range is dependent on time and content of last meal. Glucose of more than 200 mg/dL in a nonstressed, ambulatory subject supports the diagnosis of Diabetes Mellitus. Performed By: #### C BC, LIPASE, LACTIC, CMP #### [address] Commemt1 Glu2: Cleaned Meter Normal [facility] Comment on above: Result Comment: PERF ORMED BY: [place] [address] PATHOLOGIST CLAIMS DIRECTOR ROBYN CASAS M.D. Performed By: #### C BC, LIPASE, LACTIC, CMP #### [address] Glucose [Mass/Vol] 118 mg/dL Normal [facility] Comment on above: Result Comment: [place] om Glucose Reference Range is dependent on time and content of last meal. Glucose of more than 200 mg/dL in a nonstressed, ambulatory subject supports the diagnosis of Diabetes Mellitus. Performed By: #### C BC, LIPASE, LACTIC, CMP #### [address] Commemt1 Glu2: Cleaned Meter Normal [facility] Comment on above: Result Comment: PERF ORMED BY: [place] [address] PATHOLOGIST CLAIMS DIRECTOR ROBYN CASAS M.D. Performed By: #### C BC, LIPASE, LACTIC, CMP #### [address] Glucose [Mass/Vol] 117 mg/dL Normal [facility] Comment on above: Result Comment: [place] om Glucose Reference Range is dependent on time and content of last meal. Glucose of more than 200 mg/dL in a nonstressed, ambulatory subject supports the diagnosis of Diabetes Mellitus. Performed By: #### C BC, LIPASE, LACTIC, CMP #### [address] Magnesiumon 08-07-2021 Magnesium [Mass/Vol] 2.0 mg/dL Normal 1.6-2.6 [facility] Comment on above: Performed By: #### C BC, LIPASE, LACTIC, CMP #### [address] [place] [address] [place] Phosphoruson 08-07-2021 Phosphate [Mass/Vol] 2.9 mg/dL Normal 2.5-4.6 [facility] Comment on above: Performed By: #### C BC, LIPASE, LACTIC, CMP #### [address] Thyroid Stimulating Hormoneo n 08-07-2021 TSH Qn 1.34 m[IU]/L Normal 0.45-5.33 [facility] Comment on above: Result Comment: PERF ORMED BY: [place] [address] PATHOLOGIST CLAIMS DIRECTOR ROBYN CASAS M.D. Performed By: #### C BC, LIPASE, LACTIC, CMP #### [address] Basic Metabolic Panelon 07-24 Calcium [Mass/Vol] 8.2 mg/dL Normal 8.2-10.2 [facility] Comment on above: Performed By: #### C BC, LIPASE, LACTIC, CMP #### [address] Chloride [Moles/Vol] 110 mmol/L Normal 95-114 [facility] Comment on above: Performed By: #### C BC, LIPASE, LACTIC, CMP #### [address] CO2 [Moles/Vol] 25.8 mmol/L Normal 22.0-30.0 [facility] Comment on above: Performed By: #### C BC, LIPASE, LACTIC, CMP #### [facility] [address] [place] [address] Creatinine [Mass/Vol] 0.55 mg/dL Normal 0.44-1.03 [facility] Comment on above: Performed By: #### C BC, LIPASE, LACTIC, CMP #### [address] Creatinine Clr Calc Pharmacy 72.55 Normal [facility] Comment on above: Performed By: #### C BC, LIPASE, LACTIC, CMP #### [facility] [address] [place] [address] [place] Estimated GFR ( Joey > 60 Normal [facility] Comment on above: Result Comment: GFR estimated reference range: According to KDOQI guidelines, <60 ml/min/1.73m2 is sufficient to diagnose a patient with chronic kidney disease. Performed By: #### C BC, LIPASE, LACTIC, CMP #### [facility] [address] [place] [address] [place] Estimated GFR (Non- Am > 60 Normal [facility] Comment on above: Performed By: #### C BC, LIPASE, LACTIC, CMP #### [facility] [address] Glucose [Mass/Vol] 170 mg/dL High 70-100 [facility] Comment on above: Result Comment: [place] om Glucose Reference Range is dependent on time and content of last meal. Glucose of more than 200 mg/dL in a nonstressed, ambulatory subject supports the diagnosis of Diabetes Mellitus. ADA recommended reference range Performed By: #### C BC, LIPASE, LACTIC, CMP #### [address] Potassium [Moles/Vol] 3.3 mmol/L Low 3.5-5.1 [facility] Comment on above: Performed By: #### C BC, LIPASE, LACTIC, CMP #### [place] [address] [place] Sodium [Moles/Vol] 144 mmol/L Normal 136-146 [facility] Comment on above: Performed By: #### C BC, LIPASE, LACTIC, CMP #### [facility] [address] Urea nitrogen [Mass/Vol] 7 mg/dL Low 9-23 [facility] Comment on above: Performed By: #### C BC, LIPASE, LACTIC, CMP #### [address] ECG 12 lead ECGon 08-06-2021 ECG 12 lead ECG [facility] Main [place] [address] [place] [address] Electrocardiograph Report Signed Patient: Areli Hawkins MR#: [id number] : 1945 Acct:[id number] Age/Sex: 75 / F ADM Date: 08/01/21 Loc: 4N Room: 0R3446-2 Type: ADM IN Attending Dr: Tony Klein DO Ordering Provider: Jan Baldwin MD Date of Service: 08/06/21 ECG/ECG 12 lead ECG: Irregular heart rhythm Copies to: Test Reason : Blood Pressure : / mmHG Vent. Rate : 089 BPM Atrial Rate : 356 BPM P-R Int : 000 ms QRS Dur : 094 ms QT Int : 348 ms P-R-T Axes : 124 -50 094 degrees QTc Int : 423 ms Atrial flutter with variable AV block Left anterior fascicular block Nonspecific ST and T wave abnormality Abnormal ECG Significant changes have occurred Confirmed by ALVIN PARDO DO ([id number]) on 08/07/2021 1:13:22 PM Referred By: Electronically Signed By:ALVIN PARDO DO Transcribed By: MUS Signed By Alvin Pardo DO 08/07 1313 Normal [facility] Glucose Poct Glucometerson 1 10-06-2020 Glucose [Mass/Vol] 139 mg/dL Normal [facility] Comment on above: Result Comment: [place] Glucose Reference Range is dependent on time and content of last meal. Glucose of more than 200 mg/dL in a nonstressed, ambulatory subject supports the diagnosis of Diabetes Mellitus. PERFORMED BY: [place] [address] PATHOLOGIST CLAIMS DIRECTOR ROBYN CASAS M.D. Performed By: #### C BC, LIPASE, LACTIC, CMP #### [place] [address] [place] Commemt1 Glu2: Cleaned Meter Normal [facility] Comment on above: Result Comment: PERF ORMED BY: [place] [address] PATHOLOGIST CLAIMS DIRECTOR JIANLAN SUN M.D. Performed By: #### C BC, LIPASE, LACTIC, CMP #### [address] Glucose [Mass/Vol] 180 mg/dL Normal [facility] Comment on above: Result Comment: [place] om Glucose Reference Range is dependent on time and content of last meal. Glucose of more than 200 mg/dL in a nonstressed, ambulatory subject supports the diagnosis of Diabetes Mellitus. Performed By: #### C BC, LIPASE, LACTIC, CMP #### [address] Commemt1 Glu2: Cleaned Meter Normal [facility] Comment on above: Result Comment: PERF ORMED BY: [place] [address] PATHOLOGIST CLAIMS DIRECTOR ROBYN CASAS M.D. Performed By: #### C BC, LIPASE, LACTIC, CMP #### [address] Glucose [Mass/Vol] 145 mg/dL Normal [facility] Comment on above: Result Comment: [place] om Glucose Reference Range is dependent on time and content of last meal. Glucose of more than 200 mg/dL in a nonstressed, ambulatory subject supports the diagnosis of Diabetes Mellitus. Performed By: #### C BC, LIPASE, LACTIC, CMP #### [address] Glucose [Mass/Vol] 173 mg/dL Normal [facility] Comment on above: Result Comment: [place] om Glucose Reference Range is dependent on time and content of last meal. Glucose of more than 200 mg/dL in a nonstressed, ambulatory subject supports the diagnosis of Diabetes Mellitus. PERFORMED BY: [place] [address] PATHOLOGIST CLAIMS DIRECTOR ROBYN CASAS M.D. Performed By: #### C BC, LIPASE, LACTIC, CMP #### [address] Hepatic Panelon 08-06-2021 Albumin [Mass/Vol] 2.3 g/dL Low 3.2-5.5 [facility] Comment on above: Performed By: #### C BC, LIPASE, LACTIC, CMP #### [facility] [address] Albumin/Globulin [Mass ratio] 1.0 {ratio} Normal [facility] Comment on above: Performed By: #### C BC, LIPASE, LACTIC, CMP #### [facility] [address] ALP [Catalytic activity/Vol] 38 U/L Normal 32-92 [facility] Comment on above: Performed By: #### C BC, LIPASE, LACTIC, CMP #### [facility] [address] ALT [Catalytic activity/Vol] 21 U/L Normal 10-60 [facility] Comment on above: Performed By: #### C BC, LIPASE, LACTIC, CMP #### [facility] [address] AST [Catalytic activity/Vol] 21 U/L Normal 10-42 [facility] Comment on above: Performed By: #### C BC, LIPASE, LACTIC, CMP #### [facility] [address] Bilirubin [Mass/Vol] 0.4 mg/dL Normal 0.3-1.2 [facility] Comment on above: Performed By: #### C BC, LIPASE, LACTIC, CMP #### [facility] [address] [place] [address] [place] Bilirubin,Indirect 0.3 mg/dL Normal [facility] Comment on above: Performed By: #### C BC, LIPASE, LACTIC, CMP #### [facility] [address] Bilirubin.indirect [Mass/Vol] 0.1 mg/dL Normal 0.0-0.4 [facility] Comment on above: Performed By: #### C BC, LIPASE, LACTIC, CMP #### [facility] [address] Globulin (S) [Mass/Vol] 2.4 g/dL Normal [facility] Comment on above: Performed By: #### C BC, LIPASE, LACTIC, CMP #### [facility] [address] Protein [Mass/Vol] 4.7 g/dL Low 6.1-7.9 [facility] Comment on above: Performed By: #### C BC, LIPASE, LACTIC, CMP #### [facility] [address] Magnesiumon 08-06-2021 Magnesium [Mass/Vol] 2.1 mg/dL Normal 1.6-2.6 [facility] Comment on above: Result Comment: PERF ORMED BY: [place] [address] PATHOLOGIST CLAIMS DIRECTOR ROBYN CASAS M.D. Performed By: #### C BC, LIPASE, LACTIC, CMP #### [address] Phosphoruson 08-06-2021 Phosphate [Mass/Vol] 1.8 mg/dL Low 2.5-4.6 [facility] Comment on above: Performed By: #### C BC, LIPASE, LACTIC, CMP #### [address] Scan and CBCon 08-06-2021 Additional Comments Normal [facility] Comment on above: Result Comment: Abso lute monocytosis is commonly reactive in nature. However, if unexplained, recommend follow-up CBC in 3 months to evaluate for persistence. PERFORMED BY: [place] [address] PATHOLOGIST CLAIMS DIRECTOR ROBYN CASAS M.D. Performed By: #### C BC, LIPASE, LACTIC, CMP #### [address] Basophils (Bld) [#/Vol] 0.0 10*3/uL Normal 0.0-0.2 [facility] Comment on above: Performed By: #### C BC, LIPASE, LACTIC, CMP #### [address] Basophils/100 WBC (Bld) 0.3 % Normal . [facility] Comment on above: Performed By: #### C BC, LIPASE, LACTIC, CMP #### [address] Eosinophils (Bld) [#/Vol] 0.1 10*3/uL Normal 0.0-0.45 [facility] Comment on above: Performed By: #### C BC, LIPASE, LACTIC, CMP #### [address] Eosinophils/100 WBC (Bld) 0.6 % Normal . [facility] Comment on above: Performed By: #### C BC, LIPASE, LACTIC, CMP #### [address] Erythrocyte distribution width (RBC) [Ratio] 14.2 % Normal 11.9-15.3 [facility] Comment on above: Performed By: #### C BC, LIPASE, LACTIC, CMP #### [address] Hematocrit (Bld) [Volume fraction] 32.5 % Low 34.0-46.4 [facility] Comment on above: Performed By: #### C BC, LIPASE, LACTIC, CMP #### [address] Hemoglobin (Bld) [Mass/Vol] 10.9 g/dL Low 11.8-15.4 [facility] Comment on above: Performed By: #### C BC, LIPASE, LACTIC, CMP #### [address] Lymphocytes (Bld) [#/Vol] 1.3 10*3/uL Normal 1.00-4.8 [facility] Comment on above: Performed By: #### C BC, LIPASE, LACTIC, CMP #### [address] Lymphocytes/100 WBC (Bld) 12.8 % Normal . [facility] Comment on above: Performed By: #### C BC, LIPASE, LACTIC, CMP #### [address] MCH (RBC) [Entitic mass] 31.6 pg Normal 24.7-34.3 [facility] Comment on above: Performed By: #### C BC, LIPASE, LACTIC, CMP #### [address] MCV (RBC) [Entitic vol] 94.5 fL Normal 80-100 [facility] Comment on above: Performed By: #### C BC, LIPASE, LACTIC, CMP #### [address] Mean Corpuscular HGB Conc 33.5 g/dL Normal 32.0-35.0 [facility] Comment on above: Performed By: #### C BC, LIPASE, LACTIC, CMP #### [address] Monocytes (Bld) [#/Vol] 1.6 10*3/uL High 0.0-0.8 [facility] Comment on above: Performed By: #### C BC, LIPASE, LACTIC, CMP #### [address] Monocytes/100 WBC (Bld) 16.0 % Normal . [facility] Comment on above: Performed By: #### C BC, LIPASE, LACTIC, CMP #### [address] Neutrophils (Bld) [#/Vol] 6.9 10*3/uL Normal 1.8-7.7 [facility] Comment on above: Performed By: #### C BC, LIPASE, LACTIC, CMP #### [address] Neutrophils/100 WBC (Bld) 70.3 % Normal . [facility] Comment on above: Performed By: #### C BC, LIPASE, LACTIC, CMP #### [address] Nucleated RBC/100 WBC (Bld) [Ratio] 0.1 % Normal 0-0.5 [facility] Comment on above: Performed By: #### C BC, LIPASE, LACTIC, CMP #### [facility] [address] Platelet Estimate Normal Normal Normal [facility] Comment on above: Performed By: #### C BC, LIPASE, LACTIC, CMP #### [facility] [address] Platelet mean volume (Bld) [Entitic vol] 7.3 fL Normal 6.3-10.7 [facility] Comment on above: Performed By: #### C BC, LIPASE, LACTIC, CMP #### [address] Platelet Morphology Normal Normal Normal [facility] Comment on above: Performed By: #### C BC, LIPASE, LACTIC, CMP #### [address] Platelets (Bld) [#/Vol] 183 10*3/uL Normal 150-450 [facility] Comment on above: Performed By: #### C BC, LIPASE, LACTIC, CMP #### [address] RBC (Bld) [#/Vol] 3.44 10*6/uL Low 3.60-5.00 [facility] Comment on above: Performed By: #### C BC, LIPASE, LACTIC, CMP #### [address] RBC morphology finding Nom (Bld) Normal Normal [facility] Comment on above: Performed By: #### C BC, LIPASE, LACTIC, CMP #### [address] WBC (Bld) [#/Vol] 9.9 10*3/uL Normal 4.5-11.0 [facility] Comment on above: Performed By: #### C BC, LIPASE, LACTIC, CMP #### [address] Basic Metabolic Panelon 11- Calcium [Mass/Vol] 8.0 mg/dL Low 8.2-10.2 [facility] Comment on above: Order Comment: Name Collection Type:: Clean-Voided Midstream Performed By: #### U A #### [address] Chloride [Moles/Vol] 112 mmol/L Normal 95-114 [facility] Comment on above: Order Comment: Name Collection Type:: Clean-Voided Midstream Performed By: #### U A #### [address] CO2 [Moles/Vol] 20.1 mmol/L Low 22.0-30.0 [facility] Comment on above: Order Comment: Name Collection Type:: Clean-Voided Midstream Performed By: #### U A #### [address] Creatinine [Mass/Vol] 0.75 mg/dL Normal 0.44-1.03 [facility] Comment on above: Order Comment: Name Collection Type:: Clean-Voided Midstream Performed By: #### U A #### [place] [address] [place] Creatinine Clr Calc Pharmacy 71.76 [facility] Comment on above: Order Comment: Name Collection Type:: Clean-Voided Midstream Performed By: #### U A #### [address] Estimated GFR ( Joey > 60 [facility] Comment on above: Order Comment: Name Collection Type:: Clean-Voided Midstream Result Comment: GFR estimated reference range: According to KDOQI guidelines, <60 ml/min/1.73m2 is sufficient to diagnose a patient with chronic kidney disease. Performed By: #### U A #### [place] [address] [place] Estimated GFR (Non- Am > 60 [facility] Comment on above: Order Comment: Name Collection Type:: Clean-Voided Midstream Performed By: #### U A #### [place] [address] [place] Glucose [Mass/Vol] 114 mg/dL High 70-100 [facility] Comment on above: Order Comment: Name Collection Type:: Clean-Voided Midstream Result Comment: [place] Glucose Reference Range is dependent on time and content of last meal. Glucose of more than 200 mg/dL in a nonstressed, ambulatory subject supports the diagnosis of Diabetes Mellitus. ADA recommended reference range Performed By: #### U A #### [address] Potassium [Moles/Vol] 3.4 mmol/L Low 3.5-5.1 [facility] Comment on above: Order Comment: Name Collection Type:: Clean-Voided Midstream Performed By: #### U A #### [address] Sodium [Moles/Vol] 143 mmol/L Normal 136-146 [facility] Comment on above: Order Comment: Name Collection Type:: Clean-Voided Midstream Performed By: #### U A #### [address] Urea nitrogen [Mass/Vol] 5 mg/dL Low 9-23 [facility] Comment on above: Order Comment: Name Collection Type:: Clean-Voided Midstream Performed By: #### U A #### [address] Complete Blood Count Auto Di ffon 08-05-2021 Basophils (Bld) [#/Vol] 0.0 10*3/uL Normal 0.0-0.2 [facility] Comment on above: Result Comment: PERF ORMED BY: [place] [address] PATHOLOGIST CLAIMS DIRECTOR ROBYN CASAS M.D. Performed By: #### U A #### [address] Basophils/100 WBC (Bld) 0.0 % Normal . [facility] Comment on above: Performed By: #### U A #### [place] [address] [place] Eosinophils (Bld) [#/Vol] 0.0 10*3/uL Normal 0.0-0.45 [facility] Comment on above: Performed By: #### U A #### [address] Eosinophils/100 WBC (Bld) 0.0 % Normal . [facility] Comment on above: Performed By: #### U A #### [address] Erythrocyte distribution width (RBC) [Ratio] 14.3 % Normal 11.9-15.3 [facility] Comment on above: Performed By: #### U A #### [address] Hematocrit (Bld) [Volume fraction] 37.1 % Normal 34.0-46.4 [facility] Comment on above: Performed By: #### U A #### [address] Hemoglobin (Bld) [Mass/Vol] 12.2 g/dL Normal 11.8-15.4 [facility] Comment on above: Performed By: #### U A #### [address] Lymphocytes (Bld) [#/Vol] 0.5 10*3/uL Low 1.00-4.8 [facility] Comment on above: Performed By: #### U A #### [address] Lymphocytes/100 WBC (Bld) 5.0 % Normal . [facility] Comment on above: Performed By: #### U A #### [address] MCH (RBC) [Entitic mass] 31.5 pg Normal 24.7-34.3 [facility] Comment on above: Performed By: #### U A #### [address] MCV (RBC) [Entitic vol] 96.1 fL Normal 80-100 [facility] Comment on above: Performed By: #### U A #### [facility] [address] Mean Corpuscular HGB Conc 32.8 g/dL Normal 32.0-35.0 [facility] Comment on above: Performed By: #### U A #### [facility] [address] [place] [address] [place] Monocytes (Bld) [#/Vol] 1.4 10*3/uL High 0.0-0.8 [facility] Comment on above: Performed By: #### U A #### [facility] [address] Monocytes/100 WBC (Bld) 13.9 % Normal . [facility] Comment on above: Performed By: #### U A #### [facility] [address] Neutrophils (Bld) [#/Vol] 8.4 10*3/uL High 1.8-7.7 [facility] Comment on above: Performed By: #### U A #### [facility] [address] Neutrophils/100 WBC (Bld) 81.1 % Normal . [facility] Comment on above: Performed By: #### U A #### [facility] [address] [place] [address] [place] Nucleated RBC/100 WBC (Bld) [Ratio] 0.0 % Normal 0-0.5 [facility] Comment on above: Performed By: #### U A #### [facility] [address] [place] [address] [place] Platelet mean volume (Bld) [Entitic vol] 7.6 fL Normal 6.3-10.7 [facility] Comment on above: Performed By: #### U A #### [facility] [address] [place] [address] [place] Platelets (Bld) [#/Vol] 182 10*3/uL Normal 150-450 [facility] Comment on above: Performed By: #### U A #### [facility] [address] RBC (Bld) [#/Vol] 3.86 10*6/uL Normal 3.60-5.00 [facility] Comment on above: Performed By: #### U A #### [place] [id number] [facility] WBC (Bld) [#/Vol] 10.4 10*3/uL Normal 4.5-11.0 [facility] Comment on above: Performed By: #### U A #### [address] Glucose Poct Glucometerson 10-05-2020 Commemt1 Glu2: Cleaned Meter [facility] Comment on above: Result Comment: PERF ORMED BY: [place] [address] PATHOLOGIST CLAIMS DIRECTOR ROBYN CASAS M.D. Performed By: #### U A #### [address] Glucose [Mass/Vol] 97 mg/dL Normal [facility] Comment on above: Result Comment: [place] om Glucose Reference Range is dependent on time and content of last meal. Glucose of more than 200 mg/dL in a nonstressed, ambulatory subject supports the diagnosis of Diabetes Mellitus. Performed By: #### U A #### [address] Commemt1 Glu2: Cleaned Meter Normal [facility] Comment on above: Result Comment: PERF ORMED BY: [place] [address] PATHOLOGIST CLAIMS DIRECTOR ROBYN CASAS M.D. Performed By: #### U A #### [address] Glucose [Mass/Vol] 82 mg/dL Normal [facility] Comment on above: Result Comment: [place] om Glucose Reference Range is dependent on time and content of last meal. Glucose of more than 200 mg/dL in a nonstressed, ambulatory subject supports the diagnosis of Diabetes Mellitus. Performed By: #### U A #### [address] Glucose [Mass/Vol] 101 mg/dL Normal [facility] Comment on above: Result Comment: [facility] Glucose Reference Range is dependent on time and content of last meal. Glucose of more than 200 mg/dL in a nonstressed, ambulatory subject supports the diagnosis of Diabetes Mellitus. PERFORMED BY: [place] [address] PATHOLOGIST CLAIMS DIRECTOR ROBYN CASAS M.D. Performed By: #### U A #### [address] Prealbuminon 08-05-2021 Prealbumin [Mass/Vol] 7.8 mg/dL Low 18.0-38.0 [facility] Comment on above: Order Comment: Name Collection Type:: Clean-Voided Midstream Result Comment: PERF ORMED BY: [place] [address] PATHOLOGIST CLAIMS DIRECTOR ROBYN CASAS M.D. Performed By: #### U A #### [address] Basic Metabolic Panelon 07-24 Calcium [Mass/Vol] 8.8 mg/dL Normal 8.2-10.2 [facility] Comment on above: Performed By: #### U A #### [address] Chloride [Moles/Vol] 112 mmol/L Normal 95-114 [facility] Comment on above: Performed By: #### U A #### [address] CO2 [Moles/Vol] 20.1 mmol/L Low 22.0-30.0 [facility] Comment on above: Performed By: #### U A #### [address] Creatinine [Mass/Vol] 0.76 mg/dL Normal 0.44-1.03 [facility] Comment on above: Performed By: #### U A #### [place] [address] [place] Creatinine Clr Calc Pharmacy 71.76 Normal [facility] Comment on above: Result Comment: PERF ORMED BY: [place] [address] PATHOLOGIST CLAIMS DIRECTOR ROBYN CASAS M.D. Performed By: #### U A #### [address] Estimated GFR ( Joey > 60 Normal [facility] Comment on above: Result Comment: GFR estimated reference range: According to KDOQI guidelines, <60 ml/min/1.73m2 is sufficient to diagnose a patient with chronic kidney disease. Performed By: #### U A #### [address] Estimated GFR (Non- Am > 60 Normal [facility] Comment on above: Performed By: #### U A #### [address] Glucose [Mass/Vol] 81 mg/dL Normal 70-100 [facility] Comment on above: Result Comment: [place] om Glucose Reference Range is dependent on time and content of last meal. Glucose of more than 200 mg/dL in a nonstressed, ambulatory subject supports the diagnosis of Diabetes Mellitus. ADA recommended reference range Performed By: #### U A #### [place] [address] [place] Potassium [Moles/Vol] 3.2 mmol/L Low 3.5-5.1 [facility] Comment on above: Performed By: #### U A #### [place] [address] [place] Sodium [Moles/Vol] 146 mmol/L Normal 136-146 [facility] Comment on above: Performed By: #### U A #### [place] [address] [place] Urea nitrogen [Mass/Vol] 7 mg/dL Low 9-23 [facility] Comment on above: Performed By: #### U A #### [address] Complete Blood Count Auto Di ffon 08-04-2021 Basophils (Bld) [#/Vol] 0.0 10*3/uL Normal 0.0-0.2 [facility] Comment on above: Result Comment: PERF ORMED BY: [place] [address] PATHOLOGIST CLAIMS DIRECTOR ROBYN CASAS M.D. Performed By: #### U A #### [address] Basophils/100 WBC (Bld) 0.2 % Normal . [facility] Comment on above: Performed By: #### U A #### [address] Eosinophils (Bld) [#/Vol] 0.0 10*3/uL Normal 0.0-0.45 [facility] Comment on above: Performed By: #### U A #### [address] Eosinophils/100 WBC (Bld) 0.5 % Normal . [facility] Comment on above: Performed By: #### U A #### [address] Erythrocyte distribution width (RBC) [Ratio] 14.3 % Normal 11.9-15.3 [facility] Comment on above: Performed By: #### U A #### [address] Hematocrit (Bld) [Volume fraction] 40.2 % Normal 34.0-46.4 [facility] Comment on above: Performed By: #### U A #### [address] Hemoglobin (Bld) [Mass/Vol] 13.1 g/dL Normal 11.8-15.4 [facility] Comment on above: Performed By: #### U A #### [address] Lymphocytes (Bld) [#/Vol] 0.8 10*3/uL Low 1.00-4.8 [facility] Comment on above: Performed By: #### U A #### [address] Lymphocytes/100 WBC (Bld) 13.1 % Normal . [facility] Comment on above: Performed By: #### U A #### [address] MCH (RBC) [Entitic mass] 31.5 pg Normal 24.7-34.3 [facility] Comment on above: Performed By: #### U A #### [address] MCV (RBC) [Entitic vol] 96.6 fL Normal 80-100 [facility] Comment on above: Performed By: #### U A #### [address] Mean Corpuscular HGB Conc 32.6 g/dL Normal 32.0-35.0 [facility] Comment on above: Performed By: #### U A #### [address] Monocytes (Bld) [#/Vol] 1.0 10*3/uL High 0.0-0.8 [facility] Comment on above: Performed By: #### U A #### [address] Monocytes/100 WBC (Bld) 16.4 % Normal . [facility] Comment on above: Performed By: #### U A #### [address] Neutrophils (Bld) [#/Vol] 4.2 10*3/uL Normal 1.8-7.7 [facility] Comment on above: Performed By: #### U A #### [address] Neutrophils/100 WBC (Bld) 69.8 % Normal . [facility] Comment on above: Performed By: #### U A #### [facility] [address] Nucleated RBC/100 WBC (Bld) [Ratio] 0.0 % Normal 0-0.5 [facility] Comment on above: Performed By: #### U A #### [facility] [address] Platelet mean volume (Bld) [Entitic vol] 8.1 fL Normal 6.3-10.7 [facility] Comment on above: Performed By: #### U A #### [facility] [address] Platelets (Bld) [#/Vol] 196 10*3/uL Normal 150-450 [facility] Comment on above: Performed By: #### U A #### [facility] [address] RBC (Bld) [#/Vol] 4.16 10*6/uL Normal 3.60-5.00 [facility] Comment on above: Performed By: #### U A #### [address] WBC (Bld) [#/Vol] 6.0 10*3/uL Normal 4.5-11.0 [facility] Comment on above: Performed By: #### U A #### [place] [address] [place] XR KUBon 08-04-2021 XR KUB [facility] [place] [place] [address] XRay Report Signed Patient: Areli Hawkins MR#: [id number] : 1945 Acct:[id number] Age/Sex: 75 / F ADM Date: 08/01/21 Loc: Room: [address] [place] [address] Type: ADM IN Attending Dr: Indio Puga MD Ordering Provider: Indio Puga MD Date of Service: 08/04/21 XR/XR KUB: SBO Copies to: Indio Puga MD KUB COMPARISON: 08/03/21 HISTORY: Improvement of abdominal pain. Patient has NG tube. NG tube is unchanged. Continued gaseous intestinal distention identified. Cholecystectomy clips present. No abdominal calcification identified. No soft tissue mass seen. Bony structures are intact. XR/XR KUB IMPRESSION: Unchanged NG tube. Continued gaseous intestinal distention. Impression dictated by: Allan Salinas M.D.08/04/2021 8:32 AM Dictation Location: [place] [address] Transcribed By: [facility] 08/04/21831 Dictated By: Allan Salinas DO 08/04/2129 Signed By: 08/04/2132 [facility] XR chest 1V portableon 08-04 XR chest 1V portable [facility] [place] [place] [address] XRay Report Signed Patient: Areli Hawkins MR#: [id number] : 1945 Acct:[id number] Age/Sex: 75 / F ADM Date: 08/01/21 Loc: Room: [address] [place] [address] Type: ADM IN Attending Dr: Indio Puga MD Ordering Provider: Ovidio Larry MD Date of Service: 08/04/21 XR/XR chest 1V portable: Central line placement Copies to: MD Indio Gee MD Chest 08/04/2021. CLINICAL DATA: Status post central line placement. FINDINGS: A single portable upright frontal view of the chest was obtained. There is a left subclavian central venous catheter terminating in the SVC. No pneumothorax is identified. There is a nasogastric tube entering the stomach. The cardiac silhouette is normal in size. There are findings related to a history of granulomatous disease. The lungs demonstrate diffuse interstitial changes. No pleural effusion is seen. XR/XR chest 1V portable IMPRESSION: Left subclavian central venous catheter terminating in the SVC. No visible post- procedure pneumothorax. Impression dictated by: Kvng Lucas Jr., M.D.08/04/2021 6:52 PM Dictation Location: [place] [address] Transcribed By: [facility] 08/04/211851 Dictated By: Kvng Lucas Jr, MD 08/04/211849 Signed By: 08/04/211851 [facility] Basic Metabolic Panelon 07-24 Calcium [Mass/Vol] 8.7 mg/dL Normal 8.2-10.2 [facility] Comment on above: Performed By: #### B MP, CBC ####[facility] [place] [address] [facility] Chloride [Moles/Vol] 109 mmol/L Normal 95-114 [facility] Comment on above: Performed By: #### B MP, CBC ####[place] [address] [place] [address] [facility] CO2 [Moles/Vol] 20.3 mmol/L Low 22.0-30.0 [facility] Comment on above: Performed By: #### B MP, CBC ####[place] [address] [place] [address] [facility] Creatinine [Mass/Vol] 0.78 mg/dL Normal 0.44-1.03 [facility] Comment on above: Performed By: #### B MP, CBC ####[place] [address] [place] [address] [facility] Creatinine Clr Calc Pharmacy 71.76 [facility] Comment on above: Result Comment: PERF ORMED BY: [facility] [address] [place] [id number] PATHOLOGIST CLAIMS DIRECTOR ROBYN CASAS M.D. Performed By: #### B MP, CBC ####[place] [address] [place] [address] [facility] Estimated GFR ( Joey > 60 [facility] Comment on above: Result Comment: GFR estimated reference range: According to KDOQI guidelines, <60 ml/min/1.73m2 is sufficient to diagnose a patient with chronic kidney disease. Performed By: #### B MP, CBC ####[address] [address] [place] Estimated GFR (Non- Am > 60 Normal [facility] Comment on above: Performed By: #### B MP, CBC ####[facility] [place] [address] [facility] Glucose [Mass/Vol] 101 mg/dL High 70-100 [facility] Comment on above: Result Comment: [place] Glucose Reference Range is dependent on time and content of last meal. Glucose of more than 200 mg/dL in a nonstressed, ambulatory subject supports the diagnosis of Diabetes Mellitus. ADA recommended reference range Performed By: #### B MP, CBC ####[place] [address] [place] [address] [facility] Potassium [Moles/Vol] 3.8 mmol/L Normal 3.5-5.1 [facility] Comment on above: Performed By: #### B MP, CBC ####[place] [id number] [facility] Sodium [Moles/Vol] 143 mmol/L Normal 136-146 [facility] Comment on above: Performed By: #### B MP, CBC ####[place] [address] [place] [address] [facility] Urea nitrogen [Mass/Vol] 6 mg/dL Low 9-23 [facility] Comment on above: Performed By: #### B MP, CBC ####[facility] [place] [id number] [facility] Complete Blood Count Auto Di ffon 08-03-2021 Basophils (Bld) [#/Vol] 0.0 10*3/uL Normal 0.0-0.2 [facility] Comment on above: Result Comment: PERF ORMED BY: [facility] [address] [place] [id number] PATHOLOGIST CLAIMS DIRECTOR ROBYN CASAS M.D. Performed By: #### B MP, CBC ####[place] [address] [place] [id number] [place] Basophils/100 WBC (Bld) 0.2 % Normal . [facility] Comment on above: Performed By: #### B MP, CBC ####[facility] [place] [address] [facility] Eosinophils (Bld) [#/Vol] 0.0 10*3/uL Normal 0.0-0.45 [facility] Comment on above: Performed By: #### B MP, CBC ####[place] [id number] [facility] Eosinophils/100 WBC (Bld) 0.2 % Normal . [facility] Comment on above: Performed By: #### B MP, CBC ####[place] [id number] [facility] Erythrocyte distribution width (RBC) [Ratio] 14.4 % Normal 11.9-15.3 [facility] Comment on above: Performed By: #### B MP, CBC ####[address] Hematocrit (Bld) [Volume fraction] 39.7 % Normal 34.0-46.4 [facility] Comment on above: Performed By: #### B MP, CBC ####[place] [id number] [facility] Hemoglobin (Bld) [Mass/Vol] 13.2 g/dL Normal 11.8-15.4 [facility] Comment on above: Performed By: #### B MP, CBC ####[place] [phone] [facility] Lymphocytes (Bld) [#/Vol] 0.7 10*3/uL Low 1.00-4.8 [facility] Comment on above: Performed By: #### B MP, CBC ####[place] [id number] [facility] Lymphocytes/100 WBC (Bld) 7.0 % Normal . [facility] Comment on above: Performed By: #### B MP, CBC ####[place] [id number] [facility] MCH (RBC) [Entitic mass] 31.6 pg Normal 24.7-34.3 [facility] Comment on above: Performed By: #### B MP, CBC ####[place] [id number] [facility] MCV (RBC) [Entitic vol] 95.5 fL Normal 80-100 [facility] Comment on above: Performed By: #### B MP, CBC ####[place] [id number] [facility] Mean Corpuscular HGB Conc 33.1 g/dL Normal 32.0-35.0 [facility] Comment on above: Performed By: #### B MP, CBC ####[place] [id number] [facility] Monocytes (Bld) [#/Vol] 1.2 10*3/uL High 0.0-0.8 [facility] Comment on above: Performed By: #### B MP, CBC ####[place] [id number] [facility] Monocytes/100 WBC (Bld) 12.3 % Normal . [facility] Comment on above: Performed By: #### B MP, CBC ####[place] [id number] [facility] Neutrophils (Bld) [#/Vol] 8.1 10*3/uL High 1.8-7.7 [facility] Comment on above: Performed By: #### B MP, CBC ####[place] [id number] [facility] Neutrophils/100 WBC (Bld) 80.3 % Normal . [facility] Comment on above: Performed By: #### B MP, CBC ####[place] [id number] [facility] Nucleated RBC/100 WBC (Bld) [Ratio] 0.0 % Normal 0-0.5 [facility] Comment on above: Performed By: #### B MP, CBC ####[place] [id number] [facility] Platelet mean volume (Bld) [Entitic vol] 7.8 fL Normal 6.3-10.7 [facility] Comment on above: Performed By: #### B MP, CBC ####[facility] [id number] [place] [id number] [facility] Platelets (Bld) [#/Vol] 210 10*3/uL Normal 150-450 [facility] Comment on above: Performed By: #### B MP, CBC ####[facility] RBC (Bld) [#/Vol] 4.16 10*6/uL Normal 3.60-5.00 [facility] Comment on above: Performed By: #### B MP, CBC ####[facility] [place] [address] [facility] WBC (Bld) [#/Vol] 10.1 10*3/uL Normal 4.5-11.0 [facility] Comment on above: Performed By: #### B MP, CBC ####[place] [address] XR abdomen min 2Von 08-03-20 21 XR abdomen min 2V [facility] Main [place] [address] [place] [address] XRay Report Signed Patient: Areli Hawkins MR#: [id number] : 1945 Acct:[id number] Age/Sex: 75 / F ADM Date: 08/01/21 Loc: Room: [address] [place] [address] Type: ADM IN Attending Dr: Indio Puga MD Ordering Provider: Ovidio Larry MD Date of Service: 08/03/21 XR/XR abdomen min 2V: Follow-up bowel obstruction Copies to: MD Indio Gee MD ABDOMEN, SUPINE AND UPRIGHT: CLINICAL HISTORY: Follow-up small bowel obstruction. COMPARISON: 08/02/2021 FINDINGS: Supine and upright views of the abdomen demonstrate multiple loops of moderately dilated small bowel with multiple air-fluid levels secondary distal small bowel obstruction, slightly progressed. No free air in the abdomen is noted. Moderate amount of fecal material is present. A nasogastric tube is in place with its tip to be at the fundus of the stomach. Significant degenerative changes are noted at the lumbar spine. The patient is status post previous cholecystectomy. XR/XR abdomen min 2V IMPRESSION: REDEMONSTRATION OF DISTAL SMALL BOWEL OBSTRUCTION, SLIGHTLY PROGRESSED. A NASOGASTRIC TUBE IN PLACE. Impression dictated by: Harsh Pickett M.D.08/03/2021 8:21 AM Dictation Location: [place] [address] Transcribed By: [facility] 08/03/21820 Dictated By: Harsh Pickett MD 08/03/21814 Signed By: 08/03/21820 [facility] Basic Metabolic Panelon 07-24 Calcium [Mass/Vol] 8.9 mg/dL Normal 8.2-10.2 [facility] Comment on above: Performed By: #### Michael Mendez, BMP ####[place] [address] Chloride [Moles/Vol] 109 mmol/L Normal 95-114 [facility] Comment on above: Performed By: #### Michael Mendez, BMP ####[place] [id number] [facility] CO2 [Moles/Vol] 19.9 mmol/L Low 22.0-30.0 [facility] Comment on above: Performed By: #### Michael Mendez, BMP ####[address] Creatinine [Mass/Vol] 0.70 mg/dL Normal 0.44-1.03 [facility] Comment on above: Performed By: #### Michael Mendez, BMP ####[place] [id number] [facility] Creatinine Clr Calc Pharmacy 71.76 [facility] Comment on above: Performed By: #### Michael Mendez, BMP ####[place] [phone] [facility] Estimated GFR ( Joey > 60 [facility] Comment on above: Result Comment: GFR estimated reference range: According to KDOQI guidelines, <60 ml/min/1.73m2 is sufficient to diagnose a patient with chronic kidney disease. Performed By: #### Michael Mendez, BMP ####[facility] [place] [id number] [facility] Estimated GFR (Non- Am > 60 Normal [facility] Comment on above: Performed By: #### Michael Mendez, BMP ####[place] [phone] [facility] Glucose [Mass/Vol] 99 mg/dL Normal 70-100 [facility] Comment on above: Result Comment: [place] Glucose Reference Range is dependent on time and content of last meal. Glucose of more than 200 mg/dL in a nonstressed, ambulatory subject supports the diagnosis of Diabetes Mellitus. ADA recommended reference range Performed By: #### M Vanessa, BMP ####[address] Potassium [Moles/Vol] 3.4 mmol/L Low 3.5-5.1 [facility] Comment on above: Performed By: #### Michael Mendez, BMP ####[address] Sodium [Moles/Vol] 141 mmol/L Normal 136-146 [facility] Comment on above: Performed By: #### Michael G, BMP ####[address] Urea nitrogen [Mass/Vol] 5 mg/dL Low 9-23 [facility] Comment on above: Performed By: #### Michael G, BMP ####[place] [phone] [facility] Complete Blood Count Auto Di ffon 08-02-2021 Basophils (Bld) [#/Vol] 0.0 10*3/uL Normal 0.0-0.2 [facility] Comment on above: Order Comment: Speci men clotted. Redraw requested. Notified Shannen HENAO. Will notify Juwan Gu RN. Result Comment: PERF ORMED BY: [facility] [address] [place] [address] PATHOLOGIST CLAIMS DIRECTOR ROBYN CASAS M.D. Performed By: #### C BC ####[place] [phone] [place] Basophils/100 WBC (Bld) 0.1 % Normal . [facility] Comment on above: Order Comment: Speci men clotted. Redraw requested. Notified Shannen HENAO. Will notify Jwuan Gu RN. Performed By: #### C BC ####[address] Eosinophils (Bld) [#/Vol] 0.0 10*3/uL Normal 0.0-0.45 [facility] Comment on above: Order Comment: Speci men clotted. Redraw requested. Notified Shannen HENAO. Will notify Juwan Gu RN. Performed By: #### C BC ####[address] Eosinophils/100 WBC (Bld) 0.3 % Normal . [facility] Comment on above: Order Comment: Speci men clotted. Redraw requested. Notified Shannen HENAO. Will notify Juwan Gu RN. Performed By: #### C BC ####[address] Erythrocyte distribution width (RBC) [Ratio] 14.2 % Normal 11.9-15.3 [facility] Comment on above: Order Comment: Speci men clotted. Redraw requested. Notified Shannen HENAO. Will notify Juwan Gu RN. Performed By: #### C BC ####[address] Hematocrit (Bld) [Volume fraction] 39.5 % Normal 34.0-46.4 [facility] Comment on above: Order Comment: Speci men clotted. Redraw requested. Notified Shannen HENAO. Will notify Juwan Gu RN. Performed By: #### C BC ####[address] Hemoglobin (Bld) [Mass/Vol] 13.0 g/dL Normal 11.8-15.4 [facility] Comment on above: Order Comment: Speci men clotted. Redraw requested. Notified Shannen HENAO. Will notify Juwan Gu RN. Performed By: #### C BC ####[address] Lymphocytes (Bld) [#/Vol] 0.8 10*3/uL Low 1.00-4.8 [facility] Comment on above: Order Comment: Speci men clotted. Redraw requested. Notified Shannen HENAO. Will notify Juwan Gu RN. Performed By: #### C BC ####[address] Lymphocytes/100 WBC (Bld) 7.0 % Normal . [facility] Comment on above: Order Comment: Speci men clotted. Redraw requested. Notified Shannen HENAO. Will notify Juwan Gu RN. Performed By: #### C BC ####[address] MCH (RBC) [Entitic mass] 31.3 pg Normal 24.7-34.3 [facility] Comment on above: Order Comment: Speci men clotted. Redraw requested. Notified Shannen HENAO. Will notify Juwan Gu RN. Performed By: #### C BC ####[address] MCV (RBC) [Entitic vol] 95.4 fL Normal 80-100 [facility] Comment on above: Order Comment: Speci men clotted. Redraw requested. Notified Shannen TRIPLETT Will notify Juwan Gu RN. Performed By: #### C BC ####[address] Mean Corpuscular HGB Conc 32.9 g/dL Normal 32.0-35.0 [facility] Comment on above: Order Comment: Speci men clotted. Redraw requested. Notified Shannen TRIPLETT Will notify Juwan Gu RN. Performed By: #### C BC ####[address] Monocytes (Bld) [#/Vol] 0.9 10*3/uL High 0.0-0.8 [facility] Comment on above: Order Comment: Speci men clotted. Redraw requested. Notified Shannen HENAO. Will notify Juwan Gu RN. Performed By: #### C BC ####[address] Monocytes/100 WBC (Bld) 7.7 % Normal . [facility] Comment on above: Order Comment: Speci men clotted. Redraw requested. Notified Shannen HENAO. Will notify Juwan Gu RN. Performed By: #### C BC ####[address] Neutrophils (Bld) [#/Vol] 9.5 10*3/uL High 1.8-7.7 [facility] Comment on above: Order Comment: Speci men clotted. Redraw requested. Notified Shannen HENAO. Will notify Juwan Gu RN. Performed By: #### C BC ####[address] Neutrophils/100 WBC (Bld) 84.9 % Normal . [facility] Comment on above: Order Comment: Speci men clotted. Redraw requested. Notified Shannen HENAO. Will notify Juwan Gu RN. Performed By: #### C BC ####[address] Nucleated RBC/100 WBC (Bld) [Ratio] 0.0 % Normal 0-0.5 [facility] Comment on above: Order Comment: Speci men clotted. Redraw requested. Notified Shannen HENAO. Will notify Juwan Gu RN. Performed By: #### C BC ####[address] Platelet mean volume (Bld) [Entitic vol] 8.2 fL Normal 6.3-10.7 [facility] Comment on above: Order Comment: Speci men clotted. Redraw requested. Notified Shannen HENAO. Will notify Juwan Gu RN. Performed By: #### C BC ####[address] Platelets (Bld) [#/Vol] 193 10*3/uL Normal 150-450 [facility] Comment on above: Order Comment: Speci men clotted. Redraw requested. Notified Shannen HENAO. Will notify Juwan Gu RN. Performed By: #### C BC ####[address] RBC (Bld) [#/Vol] 4.14 10*6/uL Normal 3.60-5.00 [facility] Comment on above: Order Comment: Speci men clotted. Redraw requested. Notified Shannen HENAO. Will notify Juwan Gu RN. Performed By: #### C BC ####[address] WBC (Bld) [#/Vol] 11.2 10*3/uL High 4.5-11.0 [facility] Comment on above: Order Comment: Speci men clotted. Redraw requested. Notified Shannen HENAO. Will notify Juwan Gu RN. Performed By: #### C BC ####[address] Magnesiumon 08-02-2021 Magnesium [Mass/Vol] 1.8 mg/dL Normal 1.6-2.6 [facility] Comment on above: Result Comment: PERF ORMED BY: [facility] [address] [place] [address] PATHOLOGIST CLAIMS DIRECTOR ROBYN CASAS M.D. Performed By: #### M G, BMP ####[address] XR KUBon 08-02-2021 XR KUB [facility] [place] [place] [address] XRay Report Signed Patient: Areli Hawkins MR#: [id number] : 1945 Acct:[id number] Age/Sex: 75 / F ADM Date: 08/01/21 Loc: Room: [address] [place] [address] Type: ADM IN Attending Dr: Indio Puga MD Ordering Provider: Indio Puga MD Date of Service: 08/02/21 XR/XR KUB: SBO Copies to: Indio Puga MD KUB COMPARISON: 08/01/21 HISTORY: Nausea and abdominal distention NG tube remains in the proximal stomach. Continued gaseous intestinal distention identified. Cholecystectomy clips present. No abdominal calcification identified. No soft tissue mass seen. Multilevel spondylosis redemonstrated. XR/XR KUB IMPRESSION: Continued gaseous intestinal distention. Impression dictated by: Allan Salinas M.D.08/02/2021 8:28 AM Dictation Location: [place] [address] Transcribed By: [facility] 08/02/21827 Dictated By: Allan Salinas DO 08/02/21809 Signed By: 08/02/21827 [facility] COVID-19 Antigenon 1 COVID-19 Antigen Healthcare Worker?: N Heaven Reference Heaven Reference Negative SARS-CoV+SARS-CoV-2 (COVID-19) Ag [Presence] in Respiratory specimen by Rapid immunoassay Negative for SARS Antigen by [facility] COVID19 Blank Space -------- Heaven Disclaimer Negative results, from patients with symptom Heaven Disclaimer onset beyond five days, should be treated as Heaven Disclaimer presumptive and confirmation with a molecular Heaven Disclaimer assay, if necessary, for patient management, Heaven Disclaimer may be performed. Negative results do not rule Heaven Disclaimer out COVID-19 and should not be used as the sole Heaven Disclaimer basis for treatment or patient management Heaven Disclaimer decisions, including infection control decisions. Heaven Disclaimer Negative results should be considered in the Heaven Disclaimer context of a patient's recent exposures, history Heaven Disclaimer and the presence of clinical signs and symptoms Heaven Disclaimer consistent with COVID-19. COVID19 Blank Space -------- Heaven Disclaimer The Heaven SARS Antigen [facility]LEKS does not differentiate Heaven Disclaimer between SARS-CoV and SARS-CoV-2. COVID19 Blank Space -------- Heaven Disclaimer This test was developed and its performance Heaven Disclaimer characteristic determined by [employer] and Heaven Disclaimer validated at [facility]. This Heaven Disclaimer test has not been FDA cleared or approved. This Heaven Disclaimer test has been authorized by FDA under an Emergency Use Heaven Disclaimer Authorization (EUA). This test has been validated Heaven Disclaimer in accordance with the FDA's Guidance Document (Policy Heaven Disclaimer for Diagnostics Testing in Laboratories Certified to Heaven Disclaimer Perform High Complexity Testing under CLIA prior to Heaven Disclaimer Emergency Use Authorization for Coronavirus Heaven Disclaimer iseas-2018 during the Public Health Emergency) Heaven Disclaimer issued on December 24, 2019. This test is only authorized Heaven Disclaimer for the duration of time the declaration that Heaven Disclaimer circumstances exist justifying the authorization of Heaven Disclaimer the emergency use of in vitro diagnostic tests for Heaven Disclaimer detection of SARS-CoV-2 virus and/or diagnosis of Heaven Disclaimer COVID-19 infection under section 564(b)(1) of the Heaven Disclaimer Act, 21 U.S.C. 360bbb-3(b)(1), unless the Heaven Disclaimer authorization is terminated or revoked sooner. PERFORMED BY: [address] [place] [id number] PATHOLOGIST CLAIMS DIRECTOR ROBYN CASAS M.D. Normal [facility] Comment on above: Performed By: #### S OFIANEG, COVID-19 HEAVEN #### [facility] [address] [place] [id number] [facility] COVID-19 [facility] SARS-CoV-2 (COVID-19) RNA CHETAN+probe Ql (Unsp spec) Negative Normal Negative [facility] Comment on above: Order Comment: Healt hcare Worker?: N Result Comment: Testing for SARS-CoV-2 by RT-PCR This test was developed and its performance characteristics determined by [facility] ([employer]) and validated at the [facility]. This test has not been FDA cleared or approved. This test has been authorized by FDA under an Emergency Use Authorization (EUA). This test has been validated in accordance with the FDA's Guidance Document (Policy for Diagnostics Testing in Laboratories Certified to Perform High Complexity Testing under CLIA prior to Emergency Use Authorization for Coronavirus Disease-2019 during the Public Health Emergency) issued on December 24, 2019. This test is only authorized for the duration of time the declaration that circumstances exist justifying the authorization of the emergency use of in vitro diagnostic tests for detection of SARS-CoV-2 virus and/or diagnosis of COVID-19 infection under section 564(b)(1) of the Act, 21 U.S.C. 360bbb-3(b)(1), unless the authorization is terminated or revoked sooner. PERFORMED BY: [facility] [address] [place] [id number] PATHOLOGIST CLAIMS DIRECTOR ROBYN CASAS M.D. Performed By: #### C OVID 19 [facility] ####[facility] [address]fe[address] [place] [address] [facility] [address] abdomen pelvis wo conon 1 10-01-2020 CT abdomen pelvis wo con [facility] Main [place] [address] [place] [address] CT Scan Report Signed Patient: Areli Hawkins MR#: [id number] : 1945 Acct:[id number] Age/Sex: 75 / F ADM Date: 08/01/21 Loc: Room: 5D4011-9 Type: ADM IN Attending Dr: Indio Puga MD Ordering Provider: Matt Martinez Jr, MD Date of Service: 08/01/21 CT/CT abdomen pelvis wo con: Abdominal Pain Copies to: MD Matt Sweeney Jr, MD CT abdomen and pelvis withoutcontrast TECHNIQUE: Axial imaging with 2-D reconstruction. . The CT exam was performed using one or more the following dose reduction techniques: Automated exposure control, adjustment of the MA and/or Kv according to patient size, or use of the iterative reconstruction technique. COMPARISON:None History: Abdominal pain. Nausea. Small calcific granuloma the RIGHT lung base is present. 4 mm noncalcified nodule of the posterior lateral portion of the LEFT lung base is present. This is seen with image #6. No hepatic mass or intrahepatic biliary ductal dilatation identified. Hepatic steatosis identified. Remote granulomatous changes of the liver and spleen identified. Cholecystectomy clips identified. Mild prominence of common bile duct is likely secondary to cholecystectomy. There is no splenomegaly or splenic mass identified. No pancreatic mass or ductal dilatation identified. The adrenal glands are unremarkable. No nephrolithiasis or obstructive uropathy is identified. 2.7 cm exophytic cyst of the inferior pole the LEFT kidney present. No abdominal aortic aneurysm identified. Mild atherosclerosis present. No retroperitoneal abnormality seen. Dilated proximal and mid small bowel loops measure up to 3.8 cm. Multiple fluid levels present. The distal loops are decompressed in the region of the RIGHT pelvis. The appendix is normal. There is no colonic wall thickening, distention or pericolonic inflammatory changes. Urinary bladder is unremarkable. The uterus is absent. No free intraperitoneal air or fluid is identified. Degenerative changes of the spine and hips. Mild to moderate L4-[address]/CT abdomen pelvis wo con IMPRESSION: Findings concerning for distal small bowel obstruction.No obstructing mass. Postoperative change. 4 mm noncalcified the LEFT lung base nodule. Impression dictated by: Allan Salinas M.D.08/01/2021 9:44 AM Dictation Location: [place] [address] Transcribed By: [facility] 08/01/21943 Dictated By: Allan Salinas DO 08/01/21937 Signed By: 08/01/21943 Normal [facility] Complete Blood Count Auto Di ffon 08-01-2021 Basophils (Bld) [#/Vol] 0.0 10*3/uL Normal 0.0-0.2 [facility] Comment on above: Result Comment: PERF ORMED BY: [place] [address] PATHOLOGIST CLAIMS DIRECTOR ROBYN CASAS M.D. Performed By: #### C BC, LIPASE, LACTIC, CMP #### [address] Basophils/100 WBC (Bld) 0.4 % Normal . [facility] Comment on above: Performed By: #### C BC, LIPASE, LACTIC, CMP #### [address] Eosinophils (Bld) [#/Vol] 0.1 10*3/uL Normal 0.0-0.45 [facility] Comment on above: Performed By: #### C BC, LIPASE, LACTIC, CMP #### [address] Eosinophils/100 WBC (Bld) 0.8 % Normal . [facility] Comment on above: Performed By: #### C BC, LIPASE, LACTIC, CMP #### [address] Erythrocyte distribution width (RBC) [Ratio] 14.0 % Normal 11.9-15.3 [facility] Comment on above: Performed By: #### C BC, LIPASE, LACTIC, CMP #### [address] Hematocrit (Bld) [Volume fraction] 39.8 % Normal 34.0-46.4 [facility] Comment on above: Performed By: #### C BC, LIPASE, LACTIC, CMP #### [address] [place] [address] [place] Hemoglobin (Bld) [Mass/Vol] 13.3 g/dL Normal 11.8-15.4 [facility] Comment on above: Performed By: #### C BC, LIPASE, LACTIC, CMP #### [address] Lymphocytes (Bld) [#/Vol] 1.0 10*3/uL Normal 1.00-4.8 [facility] Comment on above: Performed By: #### C BC, LIPASE, LACTIC, CMP #### [address] Lymphocytes/100 WBC (Bld) 10.9 % Normal . [facility] Comment on above: Performed By: #### C BC, LIPASE, LACTIC, CMP #### [address] MCH (RBC) [Entitic mass] 31.3 pg Normal 24.7-34.3 [facility] Comment on above: Performed By: #### C BC, LIPASE, LACTIC, CMP #### [address] MCV (RBC) [Entitic vol] 93.7 fL Normal 80-100 [facility] Comment on above: Performed By: #### C BC, LIPASE, LACTIC, CMP #### [address] Mean Corpuscular HGB Conc 33.4 g/dL Normal 32.0-35.0 [facility] Comment on above: Performed By: #### C BC, LIPASE, LACTIC, CMP #### [address] Monocytes (Bld) [#/Vol] 0.9 10*3/uL High 0.0-0.8 [facility] Comment on above: Performed By: #### C BC, LIPASE, LACTIC, CMP #### [address] Monocytes/100 WBC (Bld) 9.5 % Normal . [facility] Comment on above: Performed By: #### C BC, LIPASE, LACTIC, CMP #### [address] Neutrophils (Bld) [#/Vol] 7.4 10*3/uL Normal 1.8-7.7 [facility] Comment on above: Performed By: #### C BC, LIPASE, LACTIC, CMP #### [address] Neutrophils/100 WBC (Bld) 78.4 % Normal . [facility] Comment on above: Performed By: #### C BC, LIPASE, LACTIC, CMP #### [address] Nucleated RBC/100 WBC (Bld) [Ratio] 0.1 % Normal 0-0.5 [facility] Comment on above: Performed By: #### C BC, LIPASE, LACTIC, CMP #### [address] Platelet mean volume (Bld) [Entitic vol] 8.5 fL Normal 6.3-10.7 [facility] Comment on above: Performed By: #### C BC, LIPASE, LACTIC, CMP #### [address] Platelets (Bld) [#/Vol] 194 10*3/uL Normal 150-450 [facility] Comment on above: Performed By: #### C BC, LIPASE, LACTIC, CMP #### [address] RBC (Bld) [#/Vol] 4.25 10*6/uL Normal 3.60-5.00 [facility] Comment on above: Performed By: #### C BC, LIPASE, LACTIC, CMP #### [address] WBC (Bld) [#/Vol] 9.5 10*3/uL Normal 4.5-11.0 [facility] Comment on above: Performed By: #### C BC, LIPASE, LACTIC, CMP #### [address] [place] [address] [place] Comprehensive Metabolic Pane lizy 08-01-2021 Albumin [Mass/Vol] 3.5 g/dL Normal 3.2-5.5 [facility] Comment on above: Performed By: #### C BC, LIPASE, LACTIC, CMP #### [facility] [address] Albumin/Globulin [Mass ratio] 1.3 {ratio} Normal [facility] Comment on above: Performed By: #### C BC, LIPASE, LACTIC, CMP #### [facility] [address] ALP [Catalytic activity/Vol] 54 U/L Normal 32-92 [facility] Comment on above: Performed By: #### C BC, LIPASE, LACTIC, CMP #### [address] ALT [Catalytic activity/Vol] 16 U/L Normal 10-60 [facility] Comment on above: Performed By: #### C BC, LIPASE, LACTIC, CMP #### [address] AST [Catalytic activity/Vol] 30 U/L Normal 10-42 [facility] Comment on above: Performed By: #### C BC, LIPASE, LACTIC, CMP #### [address] Bilirubin [Mass/Vol] 0.7 mg/dL Normal 0.3-1.2 [facility] Comment on above: Performed By: #### C BC, LIPASE, LACTIC, CMP #### [facility] [address] [place] [address] [place] Calcium [Mass/Vol] 9.1 mg/dL Normal 8.2-10.2 [facility] Comment on above: Performed By: #### C BC, LIPASE, LACTIC, CMP #### [facility] [address] Chloride [Moles/Vol] 106 mmol/L Normal 95-114 [facility] Comment on above: Performed By: #### C BC, LIPASE, LACTIC, CMP #### [facility] [address] CO2 [Moles/Vol] 21.0 mmol/L Low 22.0-30.0 [facility] Comment on above: Performed By: #### C BC, LIPASE, LACTIC, CMP #### [address] Creatinine [Mass/Vol] 0.77 mg/dL Normal 0.44-1.03 [facility] Comment on above: Performed By: #### C BC, LIPASE, LACTIC, CMP #### [address] Creatinine Clr Calc Pharmacy 71.76 [facility] Comment on above: Performed By: #### C BC, LIPASE, LACTIC, CMP #### [address] Estimated GFR ( Joey > 60 [facility] Comment on above: Result Comment: GFR estimated reference range: According to KDOQI guidelines, <60 ml/min/1.73m2 is sufficient to diagnose a patient with chronic kidney disease. Performed By: #### C BC, LIPASE, LACTIC, CMP #### [address] Estimated GFR (Non- Am > 60 [facility] Comment on above: Performed By: #### C BC, LIPASE, LACTIC, CMP #### [address] Globulin (S) [Mass/Vol] 2.6 g/dL [facility] Comment on above: Performed By: #### C BC, LIPASE, LACTIC, CMP #### [address] Glucose [Mass/Vol] 106 mg/dL High 70-100 [facility] Comment on above: Result Comment: [place] Glucose Reference Range is dependent on time and content of last meal. Glucose of more than 200 mg/dL in a nonstressed, ambulatory subject supports the diagnosis of Diabetes Mellitus. ADA recommended reference range Performed By: #### C BC, LIPASE, LACTIC, CMP #### [facility] [address] Potassium [Moles/Vol] 3.2 mmol/L Low 3.5-5.1 [facility] Comment on above: Performed By: #### C BC, LIPASE, LACTIC, CMP #### [facility] [address] Protein [Mass/Vol] 6.1 g/dL Normal 6.1-7.9 [facility] Comment on above: Performed By: #### C BC, LIPASE, LACTIC, CMP #### [address] Sodium [Moles/Vol] 139 mmol/L Normal 136-146 [facility] Comment on above: Performed By: #### C BC, LIPASE, LACTIC, CMP #### [address] Urea nitrogen [Mass/Vol] 7 mg/dL Low 9-23 [facility] Comment on above: Performed By: #### C BC, LIPASE, LACTIC, CMP #### [address] Consultation Noteon 08-01-20 Consultation Note [id number] D:[address] [facility] ECG 12 lead ECGon 08-01-2021 ECG 12 lead ECG [facility] Main [place] [address] [place] [address] Electrocardiograph Report Signed Patient: Areli Hawkins MR#: [id number] : 1945 Acct:[id number] Age/Sex: 75 / F ADM Date: 08/01/21 Loc: ER Room: Type: [facility] ER Attending Dr: Ordering Provider: Matt Martinez Jr, MD Date of Service: 08/01/2106/13/342 ECG/ECG 12 lead ECG: Abdominal Pain Copies to: Test Reason : Blood Pressure : 178/074 mmHG Vent. Rate : 069 BPM Atrial Rate : 069 BPM P-R Int : 150 ms QRS Dur : 114 ms QT Int : 406 ms P-R-T Axes : 082 -60 102 degrees QTc Int : 435 ms Normal sinus rhythm Left anterior fascicular block Left ventricular hypertrophy with repolarization abnormality Abnormal ECG No previous ECGs available Confirmed by MATT MARTINEZ MD ([id number]) on 08/01/2021 5:35:09 AM Referred By: Electronically Signed By:MATT MARTINEZ MD Transcribed By: MUS Signed By Matt Martinez Jr, MD [id number] Normal [facility] Lactic Acidon 08-01-2021 Lactate [Moles/Vol] 1.5 mmol/L Normal 0.5-2.2 [facility] Comment on above: Result Comment: PERF ORMED BY: [facility] [address] [place] [address] PATHOLOGIST CLAIMS DIRECTOR ROBYN CASAS M.D. Performed By: #### C BC, LIPASE, LACTIC, CMP #### [facility] [address] Lipaseon 08-01-2021 Lipase [Catalytic activity/Vol] 28.0 U/L Normal 22-51 [facility] Comment on above: Result Comment: PERF ORMED BY: [facility] [address] [place] [address] PATHOLOGIST CLAIMS DIRECTOR ROBYN CASAS M.D. Performed By: #### C BC, LIPASE, LACTIC, CMP #### [facility] [address] [place] [address] RAD - MISCon 08-01-2021 RAD - MISC [id number] D:[address] [facility] Heaven Ag Negativeon 08-01-20 21 Heaven Ag Negative Negative Normal Negative [facility] Comment on above: Result Comment: This is a duplicate Heaven SARS Antigen (ALEKS) result to be used for statistical tracking purpose only. PERFORMED BY: [facility] [address] [place] [id number] PATHOLOGIST CLAIMS DIRECTOR ROBYN CASAS M.D. Performed By: #### S LESTER MEIERID-19 HEAVEN #### [facility] [address] [place] [id number] [place] Urinalysison 08-01-2021 Appearance (U) Clear Normal Clear [facility] Comment on above: Order Comment: Name Collection Type:: Clean-Voided Midstream Performed By: #### U A #### [facility] [address] [place] [address] [place] Bilirubin,Urine Negative Normal Negative [facility] Comment on above: Order Comment: Name Collection Type:: Clean-Voided Midstream Performed By: #### U A #### [facility] [address] [place] [address] [place] Color (U) Yellow Normal Yellow [facility] Comment on above: Order Comment: Name Collection Type:: Clean-Voided Midstream Performed By: #### U A #### [facility] [address] [place] [address] [place] Glucose Ql (U) Normal Normal Normal [facility] Comment on above: Order Comment: Name Collection Type:: Clean-Voided Midstream Performed By: #### U A #### [facility] [address] [place] [address] [place] Ketones Ql (U) Negative Normal Negative [facility] Comment on above: Order Comment: Name Collection Type:: Clean-Voided Midstream Performed By: #### U A #### [facility] [address] [place] [address] [place] Leukocyte esterase Test strip Ql (U) Negative Normal Negative [facility] Comment on above: Order Comment: Name Collection Type:: Clean-Voided Midstream Performed By: #### U A #### [facility] [address] [place] [address] [place] Nitrite,Urine Negative Normal Negative [facility] Comment on above: Order Comment: Name Collection Type:: Clean-Voided Midstream Performed By: #### U A #### [facility] [address] [place] [address] [place] Occult Blood,Urine Negative Normal Negative [facility] Comment on above: Order Comment: Name Collection Type:: Clean-Voided Midstream Result Comment: PERF ORMED BY: [address] [place] [address] PATHOLOGIST CLAIMS DIRECTOR ROBYN CASAS M.D. Performed By: #### U A #### [address] pH (U) 5.5 [pH] Normal 5.0-9.0 [facility] Comment on above: Order Comment: Name Collection Type:: Clean-Voided Midstream Performed By: #### U A #### [address] Protein,Urine Negative Normal Negative [facility] Comment on above: Order Comment: Name Collection Type:: Clean-Voided Midstream Performed By: #### U A #### [address] Specificy Bussey,Urine 1.011 Normal 1.001-1.030 [facility] Comment on above: Order Comment: Name Collection Type:: Clean-Voided Midstream Performed By: #### U A #### [address] Urobilinogen,Urine Normal Normal Normal [facility] Comment on above: Order Comment: Name Collection Type:: Clean-Voided Midstream Performed By: #### U A #### [address] XR abdomen 1Von 08-01-2021 XR abdomen 1V [facility] [place] [place] [address] XRay Report Signed Patient: Areli Hawkins MR#: [id number] : 1945 Acct:[id number] Age/Sex: 75 / F ADM Date: 08/01/21 Loc: Room: [address] [place] [address] Type: ADM IN Attending Dr: Indio Puga MD Ordering Provider: Matt Martinez Jr, MD Date of Service: 08/01/21 XR/XR abdomen 1V: NG TUBE PLACEMENT Copies to: MD Matt Sweeney Jr, MD ABDOMEN, SUPINE : CLINICAL HISTORY: Nasogastric tube placement COMPARISON: None FINDINGS: The supine view of the abdomen shows the distal portion of the nasogastric tube to be within the stomach] with its tip at the proximal body of the stomach. Dilated, air-filled small bowel loops are noted.] XR/XR abdomen 1V IMPRESSION: TIP OF THE NASOGASTRIC TUBE AT THE PROXIMAL BODY PORTION OF THE STOMACH. Impression dictated by: Harsh Pickett M.D.08/01/2021 8:52 AM Dictation Location: [place] [address] Transcribed By: JORGE 08/01/21851 Dictated By: Harsh Pickett MD 08/01/2150 Signed By: 08/01/21851 [facility] CBC AUTO DIFFon 07-31-2021 BASO # 0.0 103/ul Normal 0.0-0.1 [facility] Comment on above: Performed By: #### C BC #### [facility] [address] [place] [address] Dr. Millie Flores Basophils/100 WBC (Bld) 0.4 % Normal 0.2-2.0 [facility] Comment on above: Performed By: #### C BC #### [facility] [address] [place] [address] [address] Millie Flores EO # 0.2 103/ul Normal 0.0-0.7 [facility] Comment on above: Performed By: #### C BC #### [facility] [address] [place] [address] [address] Millie Flores Eosinophils/100 WBC (Bld) 2.2 % Normal 0.9-7.0 [facility] Comment on above: Performed By: #### C BC #### [facility] [address] [place] [address] [address] Millie Flores Erythrocyte distribution width (RBC) [Ratio] 13.9 % Normal 11.0-15.0 [facility] Comment on above: Performed By: #### C BC #### [facility] [address] [place] [address] [address] Millie Flores Hematocrit (Bld) [Volume fraction] 35.7 % Critically low 36.0-48.0 [facility] Comment on above: Performed By: #### C BC #### [facility] [address] [place] [address] Dr. Millie Flores Hemoglobin (Bld) [Mass/Vol] 11.2 g/dL Critically low 12.0-16.0 [facility] Comment on above: Performed By: #### C BC #### [facility] [address] [place] [address] Dr. Millie Flores IG # 0.04 10e3/ul Critically high 0.00-0.03 [facility] Comment on above: Performed By: #### C BC #### [facility] [address] [place] [address] Dr. Millie Flores IG % 0.5 % Normal 0.0-0.5 [facility] Comment on above: Performed By: #### C BC #### [facility] [address] [place] [address] Dr. Millie Flores LYMPH # 2.3 103/ul Normal 1.2-3.8 [facility] Comment on above: Performed By: #### C BC #### [facility] [address] [place] [address] Dr. Millie Flores Lymphocytes/100 WBC (Bld) 31.7 % Normal 20.5-60.0 [facility] Comment on above: Performed By: #### C BC #### [facility] [address] [place] [address] Dr. Millie Flores MANUAL DIFF REQ NO Normal [facility] Comment on above: Performed By: #### C BC #### [facility] [address] [place] [address] Dr. Millie Flores MCH (RBC) [Entitic mass] 31.0 pg Normal 26.7-34.0 [facility] Comment on above: Performed By: #### C BC #### [facility] [address] [place] [address] Dr. Millie Flores MCHC (RBC) [Mass/Vol] 31.4 g/dL Normal 29.9-35.2 [facility] Comment on above: Performed By: #### C BC #### [facility] [address] [place] [address] [address] Millie Flores MCV (RBC) [Entitic vol] 98.9 fL Normal 81.0-99.0 [facility] Comment on above: Performed By: #### C BC #### [facility] [address] [place] [address] [address] Millie Flores MONO # 0.9 103/ul Critically high 0.3-0.8 [facility] Comment on above: Performed By: #### C BC #### [facility] [address] [place] [address] [address] Millie Flores Monocytes/100 WBC (Bld) 12.5 % Critically high 1.7-12.0 [facility] Comment on above: Performed By: #### C BC #### [facility] [address] [place] [address] Dr. Millie Flores NEUT # 3.8 103/ul Normal 1.4-6.5 [facility] Comment on above: Performed By: #### C BC #### [facility] [address] [place] [address] Dr. Millie Flores Neutrophils/100 WBC (Bld) 52.7 % Normal 43.0-75.0 [facility] Comment on above: Performed By: #### C BC #### [facility] [address] [place] [address] Dr. Millie Flores Platelet mean volume (Bld) [Entitic vol] 10.2 fL Normal 9.5-13.5 [facility] Comment on above: Performed By: #### C BC #### [facility] [address] [place] [address] Dr. Millie Flores PLT 165 103/ul Normal 150-450 [facility] Comment on above: Performed By: #### C BC #### [facility] [address] [place] [address] Dr. Millie Flores RBC 3.61 106/ul Critically low 4.20-5.40 [facility] Comment on above: Performed By: #### C BC #### [facility] [address] [place] [address] Dr. Millie Flores WBC 7.3 103/ul Normal 4.0-11.0 [facility] Comment on above: Performed By: #### C BC #### [facility] [address] [place] [address] Dr. Millie Flores CULTURE URINEon 07-31-2021 CULTURE URINE Isolate 1 Escherichia coli >100,000 cfu/mL of ORGANISM 1 Escherichia coli ANTIBIOTIC M.I.C RX STATUS Ampicillin <=2 S F Ampicillin/Sulbactam <=2 S F Piperacillin/Tazobactam <=4 S F Cefazolin <=4 S F Ceftazidime <=1 S F Ceftriaxone <=1 S F Ertapenem <=0.5 S F Imipenem <=0.25 S F Amikacin <=2 S F Gentamicin <=1 S F Tobramycin <=1 S F Ciprofloxacin <=0.25 S F Levofloxacin <=0.12 S F Nitrofurantoin <=16 S F Trimethoprim/Sulfametho xazole <=20 S F Normal [facility] Comment on above: Performed By: #### B MP #### [facility] [address] [place] [address] Dr. Millie Flores PROF CHEM 8 (BAS METB)on Anion gap [Moles/Vol] 11.5 mmol/L Normal [facility] Comment on above: Performed By: #### B MP #### [facility] [address] [place] [address] Dr. Millie Flores Calcium [Mass/Vol] 8.2 mg/dL Critically low 8.4-10.2 [facility] Comment on above: Performed By: #### B MP #### [facility] [address] [place] [address] Dr. Millie Flores Chloride [Moles/Vol] 109 mmol/L Critically high 98-107 [facility] Comment on above: Performed By: #### B MP #### [facility] [address] [place] [address] Dr. Millie Flores CO2 [Moles/Vol] 26.4 mmol/L Normal 22.0-30.0 [facility] Comment on above: Performed By: #### B MP #### [facility] [address] [place] [address] [address] Millie Flores Creatinine [Mass/Vol] 0.69 mg/dL Normal 0.52-1.04 [facility] Comment on above: Performed By: #### B MP #### [facility] [address] [place] [address] [address] Millie Flores EGFR-AF GUAMANIAN >60 Normal >=60 [facility] Comment on above: Performed By: #### B MP #### [facility] [address] [place] [address] [address] Millie Flores EGFR-NON AF GUAMANIAN >60 Normal >=60 [facility] Comment on above: Performed By: #### B MP #### [facility] [address] [place] [address] [address] Millie Flores Glucose [Mass/Vol] 92 mg/dL Normal 74-106 [facility] Comment on above: Performed By: #### B MP #### [facility] [address] [place] [address] [address] Millie Flores Potassium [Moles/Vol] 3.9 mmol/L Normal 3.4-5.0 [facility] Comment on above: Performed By: #### B MP #### [facility] [address] [place] [address] [address] Millie Flores Sodium [Moles/Vol] 143 mmol/L Normal 137-145 [facility] Comment on above: Performed By: #### B MP #### [facility] [address] [place] [address] [address] Millie Flores Urea nitrogen [Mass/Vol] 8.0 mg/dL Normal 7.0-17.0 [facility] Comment on above: Performed By: #### B MP #### [facility] [address] [place] [address] [address] Millie Flores Urea nitrogen/Creatinine [Mass ratio] 11.6 mg/mg Normal [facility] Comment on above: Performed By: #### B MP #### [facility] [address] [place] [address] [address] Millie Flores CBC AUTO DIFFon 07-30-2021 BASO # 0.1 103/ul Normal 0.0-0.1 [facility] Comment on above: Performed By: #### C BC #### [facility] [address] [place] [address] Dr. Millie Flores Basophils/100 WBC (Bld) 0.4 % Normal 0.2-2.0 [facility] Comment on above: Performed By: #### C BC #### [facility] [address] [place] [address] Dr. Millie Flores EO # 0.0 103/ul Normal 0.0-0.7 [facility] Comment on above: Performed By: #### C BC #### [facility] [address] [place] [address] Dr. Millie Flores Eosinophils/100 WBC (Bld) 0.3 % Critically low 0.9-7.0 [facility] Comment on above: Performed By: #### C BC #### [facility] [address] [place] [address] Dr. Millie Flores Erythrocyte distribution width (RBC) [Ratio] 13.5 % Normal 11.0-15.0 [facility] Comment on above: Performed By: #### C BC #### [facility] [address] [place] [address] Dr. Millie Flores Hematocrit (Bld) [Volume fraction] 41.5 % Normal 36.0-48.0 [facility] Comment on above: Performed By: #### C BC #### [facility] [address] [place] [address] Dr. Millie Flores Hemoglobin (Bld) [Mass/Vol] 13.7 g/dL Normal 12.0-16.0 [facility] Comment on above: Performed By: #### C BC #### [facility] [address] [place] [address] Dr. Millie Flores IG # 0.05 10e3/ul Critically high 0.00-0.03 [facility] Comment on above: Performed By: #### C BC #### [facility] [address] [place] [address] Dr. Millie Flores IG % 0.4 % Normal 0.0-0.5 [facility] Comment on above: Performed By: #### C BC #### [facility] [address] [place] [address] Dr. Millie Flores LYMPH # 1.8 103/ul Normal 1.2-3.8 [facility] Comment on above: Performed By: #### C BC #### [facility] [address] [place] [address] Dr. Millie Flores Lymphocytes/100 WBC (Bld) 14.7 % Critically low 20.5-60.0 [facility] Comment on above: Performed By: #### C BC #### [facility] [address] [place] [address] Dr. Millie Flores MANUAL DIFF REQ NO Normal [facility] Comment on above: Performed By: #### C BC #### [facility] [address] [place] [address] Dr. Millie Flores MCH (RBC) [Entitic mass] 31.5 pg Normal 26.7-34.0 [facility] Comment on above: Performed By: #### C BC #### [facility] [address] [place] [address] Dr. Millie Flores MCHC (RBC) [Mass/Vol] 33.0 g/dL Normal 29.9-35.2 [facility] Comment on above: Performed By: #### C BC #### [facility] [address] [place] [address] Dr. Millie Flores MCV (RBC) [Entitic vol] 95.4 fL Normal 81.0-99.0 [facility] Comment on above: Performed By: #### C BC #### [facility] [address] [place] [address] Dr. Millie Flores MONO # 1.5 103/ul Critically high 0.3-0.8 [facility] Comment on above: Performed By: #### C BC #### [facility] [address] [place] [address] Dr. Millie Flores Monocytes/100 WBC (Bld) 12.7 % Critically high 1.7-12.0 [facility] Comment on above: Performed By: #### C BC #### [facility] [address] [place] [address] Dr. Millie Flores NEUT # 8.7 103/ul Critically high 1.4-6.5 [facility] Comment on above: Performed By: #### C BC #### [facility] [address] [place] [address] Dr. Millie Flores Neutrophils/100 WBC (Bld) 71.5 % Normal 43.0-75.0 [facility] Comment on above: Performed By: #### C BC #### [facility] [address] [place] [address] Dr. Millie Flores Platelet mean volume (Bld) [Entitic vol] 10.2 fL Normal 9.5-13.5 [facility] Comment on above: Performed By: #### C BC #### [facility] [address] [place] [address] Dr. Millie Flores PLT 218 103/ul Normal 150-450 [facility] Comment on above: Performed By: #### C BC #### [facility] [address] [place] [address] Dr. Millie Flores RBC 4.35 106/ul Normal 4.20-5.40 [facility] Comment on above: Performed By: #### C BC #### [facility] [address] [place] [address] Dr. Millie Flores WBC 12.1 103/ul Critically high 4.0-11.0 [facility] Comment on above: Performed By: #### C BC #### [facility] [address] [place] [address] Dr. Millie Flores PROF CHEM 8 (BAS METB)on Anion gap [Moles/Vol] 13.9 mmol/L Normal [facility] Comment on above: Performed By: #### C BC #### [facility] [address] [place] [address] Dr. Millie Flores Calcium [Mass/Vol] 8.8 mg/dL Normal 8.4-10.2 [facility] Comment on above: Performed By: #### C BC #### [facility] [address] [place] [address] [address] Millie Flores Chloride [Moles/Vol] 105 mmol/L Normal 98-107 [facility] Comment on above: Performed By: #### C BC #### [facility] [address] [place] [address] [address] Millie Flores CO2 [Moles/Vol] 25.7 mmol/L Normal 22.0-30.0 [facility] Comment on above: Performed By: #### C BC #### [facility] [address] [place] [address] Dr. Millie Flores Creatinine [Mass/Vol] 0.73 mg/dL Normal 0.52-1.04 [facility] Comment on above: Performed By: #### C BC #### [facility] [address] [place] [address] Dr. Millie Flores EGFR-AF GUAMANIAN >60 Normal >=60 [facility] Comment on above: Performed By: #### C BC #### [facility] [address] [place] [address] [address] Millie Flores EGFR-NON AF GUAMANIAN >60 Normal >=60 [facility] Comment on above: Performed By: #### C BC #### [facility] [address] [address] Dr. Millie Flores Glucose [Mass/Vol] 120 mg/dL Critically high 74-106 [facility] Comment on above: Performed By: #### C BC #### [facility] [address] [address] [address] Millie Flores Potassium [Moles/Vol] 3.6 mmol/L Normal 3.4-5.0 [facility] Comment on above: Performed By: #### C BC #### [facility] [address] [address] [address] Millie Flores Sodium [Moles/Vol] 141 mmol/L Normal 137-145 [facility] Comment on above: Performed By: #### C BC #### [facility] [address] [address] [address] Millie Flores Urea nitrogen [Mass/Vol] 13.0 mg/dL Normal 7.0-17.0 [facility] Comment on above: Performed By: #### C BC #### [facility] [address] [address] [address] Millie Flores Urea nitrogen/Creatinine [Mass ratio] 17.8 mg/mg Normal [facility] Comment on above: Performed By: #### C BC #### [facility] [address] [address] [address] Millie Flores XR ABD FLAT UP_PA Ivonne 07-30 XR ABD FLAT UP_PA CH ACUTE ABDOMINAL SER IES WITH CHEST X-RAY HISTORY: Abdominal pain. Comparison: X-ray 07/19/2021; CT 07/29/2021 FINDINGS: The lungs are clear and the costophrenic angles are sharp. There is no infiltrate, effusion, or pneumothorax seen. There are stable mildly dilated loops of small bowel. The large bowel loops are nondistended. There is no evidence for free air or air-fluid levels present. IMPRESSION: Stable small bowel obstruction. Electronically authenticated by: GEOVANI SELBY Date: 2021-07-30 09:44 Normal [facility] AMYLASEon 07-29-2021 Amylase [Catalytic activity/Vol] 105 U/L Normal 31-110 [facility] Comment on above: Performed By: #### C BC #### [facility] [address] [place] [address] Dr. Millie Flores CBC W MANUAL DIFFon 07-29-20 21 ATYPICAL LYMPH # Normal [facility] Comment on above: Performed By: #### C BCMAN #### [facility] [address] [address] [address] Millie Flores ATYPICAL LYMPH % Normal [facility] Comment on above: Performed By: #### C BCMAN #### [facility] [address] [address] [address] Millie Flores BAND # Normal 0.0-0.3 [facility] Comment on above: Performed By: #### C BCMEGAN #### [facility] [address] [place] [address] Dr. Millie Flores BAND % Normal 0-5 [facility] Comment on above: Performed By: #### C BCMAN #### [facility] [address] [place] [address] Dr. Millie Flores BASOM # 0.00 103/ul Normal 0.00-0.10 [facility] Comment on above: Performed By: #### C BCMEGAN #### [facility] [address] [place] [address] Dr. Millie Flores BASOM % 0.0 % Critically low 0.2-2.0 [facility] Comment on above: Performed By: #### C BCMEGAN #### [facility] [address] [place] [address] Dr. Millie Flores BLAST # Normal [facility] Comment on above: Performed By: #### C GEOFFREY #### [facility] [address] [place] [address] Dr. Millie Flores BLAST % Normal [facility] Comment on above: Performed By: #### C BCMEGAN #### [facility] [address] [place] [address] Dr. Millie Flores CORRECTED WBC Normal 4.0-11.0 [facility] Comment on above: Performed By: #### C BCMEGAN #### [facility] [address] [place] [address] Dr. Millie Flores EOS # 0.00 103/ul Normal 0.00-0.70 [facility] Comment on above: Performed By: #### C BCMEGAN #### [facility] [address] [place] [address] Dr. Millie Flores EOS% 0.0 % Critically low 0.9-7.0 [facility] Comment on above: Performed By: #### C BCMEGAN #### [facility] [address] [place] [address] Dr. Millie Flores HCT 44.2 % Normal 36.0-48.0 [facility] Comment on above: Performed By: #### C BCMEGAN #### [facility] [address] [address] [address] Millie Flores HGB 14.6 g/dl Normal 12.0-16.0 [facility] Comment on above: Performed By: #### C BCMEGAN #### [facility] [address] [address] [address] Millie Flores LYMPHM # 1.93 103/ul Normal 1.20-3.80 [facility] Comment on above: Performed By: #### C GEOFFREY #### [facility] [address] [address] [address] Millie Flores LYMPHM% 11.0 % Critically low 20.5-60.0 [facility] Comment on above: Performed By: #### C GEOFFREY #### [facility] [address] [place] [address] Dr. Millie Flores MCH 31.2 pg Normal 26.7-34.0 [facility] Comment on above: Performed By: #### C GEOFFREY #### [facility] [address] [place] [address] Dr. Millie Flores MCHC 33.0 g/dl Normal 29.9-35.2 [facility] Comment on above: Performed By: #### C GEOFFREY #### [facility] [address] [place] [address] Dr. Millie Flores MCV 94.4 fL Normal 81.0-99.0 [facility] Comment on above: Performed By: #### C BCMEGAN #### [facility] [address] [place] [address] Dr. Millie Flores METAMYELOCYTE # Normal [facility] Comment on above: Performed By: #### C BCMEGAN #### [facility] [address] [place] [address] Dr. Millie Flores METAMYELOCYTE % Normal [facility] Comment on above: Performed By: #### C GEOFFREY #### [facility] [address] [place] [address] Dr. Millie Flores MONOM# 1.57 103/ul Critically high 0.30-0.80 [facility] Comment on above: Performed By: #### C GEOFFREY #### [facility] [address] [place] [address] Dr. Millie Flores MONOM% 9.0 % Normal 1.7-12.0 [facility] Comment on above: Performed By: #### C GEOFFREY #### [facility] [address] [place] [address] Dr. Millie Flores MPV 9.9 fL Normal 9.5-13.5 [facility] Comment on above: Performed By: #### C BCMEGAN #### [facility] [address] [place] [address] Dr. Millie Flores MYELOCYTE # Normal [facility] Comment on above: Performed By: #### C GEOFFREY #### [facility] [address] [place] [address] Dr. Millie Flores MYELOCYTE % Normal [facility] Comment on above: Performed By: #### C GEOFFREY #### [facility] [address] [place] [address] Dr. Millie Flores NRBC Normal [facility] Comment on above: Performed By: #### C GEOFFREY #### [facility] [address] [place] [address] Dr. Millie Flores PLT 258 103/ul Normal 150-450 [facility] Comment on above: Performed By: #### C GEOFFREY #### [facility] [address] [place] [address] Dr. Millie Flores RBC 4.68 106/ul Normal 4.20-5.40 [facility] Comment on above: Performed By: #### C GEOFFREY #### [facility] [address] [place] [address] Dr. Millie Flores RDW 13.5 % Normal 11.0-15.0 [facility] Comment on above: Performed By: #### C GEOFFREY #### [facility] [address] [place] [address] Dr. Millie Flores SEG # 14.00 103/ul Critically high 1.40-6.50 [facility] Comment on above: Performed By: #### C BCMAN #### [facility] [address] [place], [place] [address] Dr. Millie Flores SEG % 80.0 % Critically high 43.0-75.0 [facility] Comment on above: Performed By: #### C BCMAN #### [facility] [address] [place], [place] [address] Dr. Millie Flores WBC 17.5 103/ul Critically high 4.0-11.0 [facility] Comment on above: Performed By: #### C BCMAN #### [facility] [address] [place], [place] [address] ABD/PELVIS WO CONon 07-29 CT ABD/PELVIS WO CON CLINICAL HISTORY: R ight lower quadrant pain, nausea. EXAMINATION: Unenhanced CT scan of the abdomen and pelvis: 07/29/2021. COMPARISON: None. TECHNIQUE: 3 mm axial images from lung bases through ischial tuberosities without intravenous or oral contrast were obtained. Sagittal and coronal reconstructions were performed. CT dose reduction technique was used, including Automated Exposure Control. FINDINGS: The visualized lung bases appear normal. There is a calcified granuloma in the right lower lobe as well as there are some calcified lymph nodes along the distal esophagus. The heart size seems normal. CT ABDOMEN: There are multiple calcified granulomas within the liver as well as spleen without focal lesions in these organs. The patient is status post cholecystectomy. The pancreas demonstrates mild atrophy. The adrenal glands appear normal. There is no hydronephrosis or nephrolithiasis involving the left or the right kidney. The abdominal aorta is moderately atherosclerotic without evidence of aneurysm. The small and large bowel loops demonstrate no wall thickening, however there is mild dilatation of several of the small bowel loops with transition point in the distal ileum in the right mid pelvis. For example a loop of distal ileum in the right lower abdomen seems to measure approximately 9 mm while a loop of bowel at the left iliac fossa seems to measure 2.5 cm. There are a few scattered diverticula in the colon. A normal-appearing appendix is identified. CT PELVIS: There is no ureterolithiasis. The bladder seems normal. The uterus and ovaries are not seen. There is no pelvic adenopathy. There are no focal fluid collections. The visualized osseous structures demonstrate grade 1 spondylolisthesis of L4 with respect to L5 with vacuum disc phenomena at L3-L4, L4-L5. IMPRESSION: 1. Findings suspicious for at least moderate degree of partial small bowel obstruction versus early complete small bowel obstruction with transition in the distal ileum. 2. Normal-appearing appendix. 3. No nephro- or ureterolithiasis. 4. Previous cholecystectomy, hysterectomy. Electronically authenticated by: MORENO JORGENSEN Date: 2021-07-29 18:25 Normal [facility] Covid-19 PCR (CVDTB)on SARS-CoV-2 (COVID-19) RNA CHETAN+probe Ql (Unsp spec) Not detected Normal NOT DETECTED [facility] Comment on above: Result Comment: This test is not yet approved or cleared by the [place] FDA. When there are no FDA-approved or cleared tests available, and other criteria are met, FDA can make tests available under an emergency access mechanism called an Emergency Use Authorization (EUA). The EUA for this test is supported by the Threader of Health and Human Service's (HHS's) declaration that circumstances exist to justify the emergency use of in vitro diagnostics for the detection and/or diagnosis of the virus that causes COVID-19. This EUA will remain in effect (meaning this test can be used) for the duration of the COVID-19 declaration justifying emergency of IVDs, unless it is terminated or revoked by FDA (after which the test may no longer be used). When diagnostic testing is negative, the possibility of a false negative should be considered in the context of a patient's recent exposures and the presence of clinical signs and symptoms consistent with SARS-CoV-2. Performed By: #### C VDTBH #### [facility] [address] [address] [address] Millie Flores ER URINE PROFILEon 1 Bilirubin Ql (U) Negative Normal NEGATIVE [facility] Comment on above: Performed By: #### U MICRO, ERUR #### [facility] [address] [place], [place] [address] Dr. Millie Flores Clarity (U) CLEAR Normal CLEAR [facility] Comment on above: Performed By: #### U MICRO, ERUR #### [facility] [address] [address] [address] Millie Flores Color (U) YELLOW Normal YELLOW [facility] Comment on above: Performed By: #### U MICRO, ERUR #### [facility] [address] [address] [address] Millie MOELLER A micrscopic examination will be performed if indicated. Normal [facility] Comment on above: Performed By: #### U MICRO, ERUR #### [facility] [address] [address] [address] Millie Flores Glucose Ql (U) Negative Normal NEGATIVE [facility] Comment on above: Performed By: #### U MICRO, ERUR #### [facility] [address] [place] [address] Dr. Millie Flores Hemoglobin Ql (U) TRACE-INTACT Abnormal NEGATIVE [facility] Comment on above: Performed By: #### U MICRO, ERUR #### [facility] [address] [place] [address] Dr. Millie Flores Ketones Ql (U) TRACE Abnormal NEGATIVE [facility] Comment on above: Performed By: #### U MICRO, ERUR #### [facility] [address] [address] [address] Millie Flores LEUKOCYTES SMALL Abnormal NEGATIVE [facility] Comment on above: Performed By: #### U MICRO, ERUR #### [facility] [address] [address] [address] Millie Flores Nitrite Ql (U) Negative Normal NEGATIVE [facility] Comment on above: Performed By: #### U MICRO, ERUR #### [facility] [address] [address] [address] Millie Flores pH (U) 6.5 [pH] Normal 5-9 [facility] Comment on above: Performed By: #### U MICRO, ERUR #### [facility] [address] [place] [address] Dr. Millie Flores SPEC GRAVITY 1.020 Normal 1.005-<=1.02 5 [facility] Comment on above: Performed By: #### U MICRO, ERUR #### [facility] [address] [place] [address] Dr. Millie Flores UA PROTEIN TRACE Normal NEGATIVE/ TRACE [facility] Comment on above: Performed By: #### U MICRO, ERUR #### [facility] [address] [place] [address] Dr. Millie Flores UR MICRO IND INDICATED Normal [facility] Comment on above: Performed By: #### U MICRO, ERUR #### [facility] [address] [place] [address] Dr. Millie Flores Urobilinogen Qn (U) 1.0 {Robert'U}/dL Normal 0.2 - 1. 0 [facility] Comment on above: Performed By: #### U MICRO, ERUR #### [facility] [address] [place] [address] Dr. Millie Flores LIPASEon 07-29-2021 Lipase [Catalytic activity/Vol] 123.0 U/L Normal 23.0-300.0 [facility] Comment on above: Performed By: #### C BC #### [facility] [address] [place] [address] Dr. Millie Flores PROF 14(COMP METB)on 021 Albumin [Mass/Vol] 3.9 g/dL Normal 3.5-5.0 [facility] Comment on above: Performed By: #### C BC #### [facility] [address] [place] [address] Dr. Millie Flores Albumin/Globulin [Mass ratio] 1.1 {ratio} Normal [facility] Comment on above: Performed By: #### C BC #### [facility] [address] [place] [address] Dr. Millie Flores ALP [Catalytic activity/Vol] 89 U/L Normal 38-126 [facility] Comment on above: Performed By: #### C BC #### [facility] [address] [place] [address] Dr. Millie Flores ALT [Catalytic activity/Vol] 17 U/L Normal 9-52 [facility] Comment on above: Performed By: #### C BC #### [facility] [address] [address] [address] Millie Flores Anion gap [Moles/Vol] 12.3 mmol/L Normal [facility] Comment on above: Performed By: #### C BC #### [facility] [address] [address] [address] Millie Flores AST [Catalytic activity/Vol] 21 U/L Normal 14-36 [facility] Comment on above: Performed By: #### C BC #### [facility] [address] [address] [address] Millie Flores Bilirubin [Mass/Vol] 0.6 mg/dL Normal 0.2-1.3 [facility] Comment on above: Performed By: #### C BC #### [facility] [address] [address] [address] Millie Flores Calcium [Mass/Vol] 9.7 mg/dL Normal 8.4-10.2 [facility] Comment on above: Performed By: #### C BC #### [facility] [address] [address] [address] Millie Flores Chloride [Moles/Vol] 100 mmol/L Normal 98-107 [facility] Comment on above: Performed By: #### C BC #### [facility] [address] [address] [address] Millie Flores CO2 [Moles/Vol] 26.7 mmol/L Normal 22.0-30.0 [facility] Comment on above: Performed By: #### C BC #### [facility] [address] [address] [address] Millie Flores Creatinine [Mass/Vol] 0.95 mg/dL Normal 0.52-1.04 [facility] Comment on above: Performed By: #### C BC #### [facility] [address] [address] [address] Millie Flores EGFR-AF GUAMANIAN >60 Normal >=60 [facility] Comment on above: Performed By: #### C BC #### [facility] [address] [address] [address] Millie Flores EGFR-NON AF GUAMANIAN 58 mL/min/1.73m2 Critically low >=60 [facility] Comment on above: Performed By: #### C BC #### [facility] [address] [address] [address] Millie Flores Globulin (S) [Mass/Vol] 3.7 g/dL Normal [facility] Comment on above: Performed By: #### C BC #### [facility] [address] [address] [address] Millie Flores Glucose [Mass/Vol] 118 mg/dL Critically high 74-106 [facility] Comment on above: Performed By: #### C BC #### [facility] [address] [address] [address] Millie Flores Potassium [Moles/Vol] 3.0 mmol/L Critically low 3.4-5.0 [facility] Comment on above: Performed By: #### C BC #### [facility] [address] [address] [address] Millie Flores Protein [Mass/Vol] 7.6 g/dL Normal 6.1-8.2 [facility] Comment on above: Performed By: #### C BC #### [facility] [address] [address] [address] Millie Flores Sodium [Moles/Vol] 136 mmol/L Critically low 137-145 [facility] Comment on above: Performed By: #### C BC #### [facility] [address] [address] [address] Millie Flores Urea nitrogen [Mass/Vol] 14.0 mg/dL Normal 7.0-17.0 [facility] Comment on above: Performed By: #### C BC #### [facility] [id number] Millie Flores Urea nitrogen/Creatinine [Mass ratio] 14.7 mg/mg Normal [facility] Comment on above: Performed By: #### C BC #### [facility] [address] [place] [address] Dr. Millie Flores URINE MICROSCOPIC ONLYon BACTERIA TRACE Abnormal NONE SEEN [facility] Comment on above: Performed By: #### U MICRO, ERUR #### [facility] [address] [place] [address] Dr. Millie Flores Bacteria identified Cx Nom (U) INDICATED Normal [facility] Comment on above: Performed By: #### U MICRO, ERUR #### [facility] [address] [place] [address] Dr. Millie Flores CAST NONE SEEN Normal NONE SEEN [facility] Comment on above: Performed By: #### U MICRO, ERUR #### [facility] [address] [place] [address] Dr. Millie Flores Crystals LM Nom (Urine sed) NONE SEEN Normal NONE SEEN [facility] Comment on above: Performed By: #### U MICRO, ERUR #### [facility] [address] [place] [address] Dr. Millie Flores Epithelial cells LM Ql (Urine sed) FEW Abnormal NONE SEEN /RARE [facility] Comment on above: Performed By: #### U MICRO, ERUR #### [facility] [address] [place] [address] Dr. Millie Flores MUCOUS SMALL Abnormal NONE SEEN [facility] Comment on above: Performed By: #### U MICRO, ERUR #### [facility] [address] [place] [address] Dr. Millie Flores RBC 0-2 Normal 0-2 [facility] Comment on above: Performed By: #### U MICRO, ERUR #### [facility] [address] [place] [address] Dr. Millie Flores WBC 2-5 Abnormal NONE SEEN [facility] Comment on above: Performed By: #### U MICRO, ERUR #### [facility] [address] [place] [address] Dr. Millie Flores CULTURE URINEon 07-21-2021 CULTURE URINE Isolate 1 Escherichia coli >100,000 cfu/mL of ORGANISM 1 Escherichia coli ANTIBIOTIC M.I.C RX STATUS Ampicillin <=2 S F Ampicillin/Sulbactam <=2 S F Piperacillin/Tazobactam <=4 S F Cefazolin <=4 S F Ceftazidime <=1 S F Ceftriaxone <=1 S F Ertapenem <=0.5 S F Imipenem <=0.25 S F Amikacin <=2 S F Gentamicin <=1 S F Tobramycin <=1 S F Ciprofloxacin <=0.25 S F Levofloxacin <=0.12 S F Nitrofurantoin <=16 S F Trimethoprim/Sulfametho xazole <=20 S F Normal [facility] Comment on above: Performed By: #### B MP #### [facility] [address] [place] [address] Dr. Millie Flores CBC AUTO DIFFon 07-19-2021 BASO # 0.1 103/ul Normal 0.0-0.1 [facility] Comment on above: Performed By: #### C BC #### [facility] [address] [place] [address] Dr. Millie Flores Basophils/100 WBC (Bld) 0.4 % Normal 0.2-2.0 [facility] Comment on above: Performed By: #### C BC #### [facility] [address] [place] [address] Dr. Millie Flores EO # 0.1 103/ul Normal 0.0-0.7 [facility] Comment on above: Performed By: #### C BC #### [facility] [address] [place] [address] Dr. Millie Flores Eosinophils/100 WBC (Bld) 0.9 % Normal 0.9-7.0 [facility] Comment on above: Performed By: #### C BC #### [facility] [address] [place] [address] Dr. Millie Flores Erythrocyte distribution width (RBC) [Ratio] 13.9 % Normal 11.0-15.0 [facility] Comment on above: Performed By: #### C BC #### [facility] [address] [place] [address] Dr. Millie Flores Hematocrit (Bld) [Volume fraction] 40.9 % Normal 36.0-48.0 [facility] Comment on above: Performed By: #### C BC #### [facility] [address] [place] [address] Dr. Millie Flores Hemoglobin (Bld) [Mass/Vol] 13.3 g/dL Normal 12.0-16.0 [facility] Comment on above: Performed By: #### C BC #### [facility] [address] [place] [address] Dr. Millie Flores IG # 0.05 10e3/ul Critically high 0.00-0.03 [facility] Comment on above: Performed By: #### C BC #### [facility] [address] [place] [address] Dr. Millie Flores IG % 0.4 % Normal 0.0-0.5 [facility] Comment on above: Performed By: #### C BC #### [facility] [address] [place] [address] Dr. Millie Flores LYMPH # 2.7 103/ul Normal 1.2-3.8 [facility] Comment on above: Performed By: #### C BC #### [facility] [address] [place] [address] Dr. Millie Flores Lymphocytes/100 WBC (Bld) 20.2 % Critically low 20.5-60.0 [facility] Comment on above: Performed By: #### C BC #### [facility] [address] [place] [address] Dr. Millie Flores MANUAL DIFF REQ NO Normal [facility] Comment on above: Performed By: #### C BC #### [facility] [address] [place] [address] Dr. Millie Flores MCH (RBC) [Entitic mass] 31.0 pg Normal 26.7-34.0 [facility] Comment on above: Performed By: #### C BC #### [facility] [address] [place] [address] Dr. Millie Flores MCHC (RBC) [Mass/Vol] 32.5 g/dL Normal 29.9-35.2 [facility] Comment on above: Performed By: #### C BC #### [facility] [address] [address] [address] Millie Flores MCV (RBC) [Entitic vol] 95.3 fL Normal 81.0-99.0 [facility] Comment on above: Performed By: #### C BC #### [facility] [address] [address] [address] Millie Flores MONO # 1.5 103/ul Critically high 0.3-0.8 [facility] Comment on above: Performed By: #### C BC #### [facility] [address] [address] [address] Millie Flores Monocytes/100 WBC (Bld) 11.1 % Normal 1.7-12.0 [facility] Comment on above: Performed By: #### C BC #### [facility] [address] [address] [address] Millie Flores NEUT # 8.8 103/ul Critically high 1.4-6.5 [facility] Comment on above: Performed By: #### C BC #### [facility] [address] [address] [address] Millie Flores Neutrophils/100 WBC (Bld) 67.0 % Normal 43.0-75.0 [facility] Comment on above: Performed By: #### C BC #### [facility] [address] [address] [address] Millie Flores Platelet mean volume (Bld) [Entitic vol] 10.3 fL Normal 9.5-13.5 [facility] Comment on above: Performed By: #### C BC #### [facility] [address] [address] [address] Millie Flores PLT 215 103/ul Normal 150-450 [facility] Comment on above: Performed By: #### C BC #### [facility] [address] [address] [address] Millie Flores RBC 4.29 106/ul Normal 4.20-5.40 [facility] Comment on above: Performed By: #### C BC #### [facility] [address] [place] [address] Dr. Millie Flores WBC 13.1 103/ul Critically high 4.0-11.0 [facility] Comment on above: Performed By: #### C BC #### [facility] [address] [place] [address] Dr. Millie Flores ER URINE PROFILEon 1 Bilirubin Ql (U) Negative Normal NEGATIVE [facility] Comment on above: Performed By: #### C BC #### [facility] [address] [place] [address] Dr. Millie Flores Clarity (U) CLEAR Normal CLEAR [facility] Comment on above: Performed By: #### C BC #### [facility] [address] [place] [address] Dr. Millie Flores Color (U) LT. YELLOW Normal YELLOW [facility] Comment on above: Performed By: #### C BC #### [facility] [address] [place] [address] Dr. Millie MOELLER A micrscopic examination will be performed if indicated. Normal [facility] Comment on above: Performed By: #### C BC #### [facility] [address] [place] [address] Dr. Millie Flores Glucose Ql (U) Negative Normal NEGATIVE [facility] Comment on above: Performed By: #### C BC #### [facility] [address] [place] [address] Dr. Millie Flores Hemoglobin Ql (U) Negative Normal NEGATIVE [facility] Comment on above: Performed By: #### C BC #### [facility] [address] [place] [address] Dr. Millie Flores Ketones Ql (U) TRACE Abnormal NEGATIVE [facility] Comment on above: Performed By: #### C BC #### [facility] [address] [place] [address] Dr. Millie Flores LEUKOCYTES MODERATE Abnormal NEGATIVE [facility] Comment on above: Performed By: #### C BC #### [facility] [address] [address] [address] Millie Flores Nitrite Ql (U) Positive Abnormal NEGATIVE [facility] Comment on above: Performed By: #### C BC #### [facility] [address] [place] [address] Dr. Millie Flores pH (U) 7.5 [pH] Normal 5-9 [facility] Comment on above: Performed By: #### C BC #### [facility] [address] [place] [address] Dr. Millie Flores SPEC GRAVITY 1.015 Normal 1.005-<=1.02 5 [facility] Comment on above: Performed By: #### C BC #### [facility] [address] [place] [address] Dr. Millie Flores UA PROTEIN Negative Normal NEGATIVE/ TRACE [facility] Comment on above: Performed By: #### C BC #### [facility] [address] [place] [address] Dr. Millie Flores UR MICRO IND INDICATED Normal [facility] Comment on above: Performed By: #### C BC #### [facility] [address] [place] [address] Dr. Millie Flores Urobilinogen Qn (U) 1.0 {Robert'U}/dL Normal 0.2 - 1. 0 [facility] Comment on above: Performed By: #### C BC #### [facility] [address] [place] [address] Dr. Millei Flores PROF CHEM 8 (BAS METB)on Anion gap [Moles/Vol] 14.8 mmol/L Normal [facility] Comment on above: Performed By: #### B MP #### [facility] [address] [place] [address] Dr. Millie Flores Calcium [Mass/Vol] 9.2 mg/dL Normal 8.4-10.2 [facility] Comment on above: Performed By: #### B MP #### [facility] [address] [place] [address] Dr. Millie Flores Chloride [Moles/Vol] 103 mmol/L Normal 98-107 [facility] Comment on above: Performed By: #### B MP #### [facility] [address] [address] [address] Millie Flores CO2 [Moles/Vol] 24.0 mmol/L Normal 22.0-30.0 [facility] Comment on above: Performed By: #### B MP #### [facility] [address] [address] [address] Millie Flores Creatinine [Mass/Vol] 1.09 mg/dL Critically high 0.52-1.04 [facility] Comment on above: Performed By: #### B MP #### [facility] [address] [address] [address] Millie Flores EGFR-AF GUAMANIAN 60 mL/min/1.73m2 Normal >=60 [facility] Comment on above: Performed By: #### B MP #### [facility] [address] [address] [address] Millie Flores EGFR-NON AF GUAMANIAN 49 mL/min/1.73m2 Critically low >=60 [facility] Comment on above: Performed By: #### B MP #### [facility] [address] [address] [address] Millie Flores Glucose [Mass/Vol] 116 mg/dL Critically high 74-106 [facility] Comment on above: Performed By: #### B MP #### [facility] [address] [address] [address] Millie Flores Potassium [Moles/Vol] 3.8 mmol/L Normal 3.4-5.0 [facility] Comment on above: Performed By: #### B MP #### [facility] [address] [address] [address] Millie Flores Sodium [Moles/Vol] 138 mmol/L Normal 137-145 [facility] Comment on above: Performed By: #### B MP #### [facility] [address] [address] [address] Millie Flores Urea nitrogen [Mass/Vol] 22.0 mg/dL Critically high 7.0-17.0 [facility] Comment on above: Performed By: #### B MP #### [facility] [address] [place] [address] Dr. Millie Flores Urea nitrogen/Creatinine [Mass ratio] 20.2 mg/mg Normal [facility] Comment on above: Performed By: #### B MP #### [facility] [address] [place] [address] Dr. Millie Flores URINE MICROSCOPIC ONLYon BACTERIA LARGE Abnormal NONE SEEN [facility] Comment on above: Performed By: #### C BC #### [facility] [address] [place] [address] Dr. Millie Flores Bacteria identified Cx Nom (U) INDICATED Normal [facility] Comment on above: Performed By: #### C BC #### [facility] [address] [place] [address] Dr. Millie Flores CAST NONE SEEN Normal NONE SEEN [facility] Comment on above: Performed By: #### C BC #### [facility] [address] [place] [address] Dr. Millie Flores Crystals LM Nom (Urine sed) NONE SEEN Normal NONE SEEN [facility] Comment on above: Performed By: #### C BC #### [facility] [address] [place] [address] Dr. Millie Flores Epithelial cells LM Ql (Urine sed) RARE Normal NONE SEEN /RARE [facility] Comment on above: Performed By: #### C BC #### [facility] [address] [place] [address] Dr. Millie Flores MUCOUS NONE SEEN Normal NONE SEEN [facility] Comment on above: Performed By: #### C BC #### [facility] [address] [place] [address] Dr. Millie Flores RBC NONE SEEN Abnormal 0-2 [facility] Comment on above: Performed By: #### C BC #### [facility] [address] [place] [address] Dr. Millie Flores WBC 10-20 Abnormal NONE SEEN [facility] Comment on above: Performed By: #### C BC #### [facility] [id number] Millie Flores XR ABD FLAT_UPon 07-19-2021 XR ABD FLAT_UP EXAM: XR ABD FLAT_UP HISTORY: Lower abdominal pain COMPARISON: None. TECHNIQUE: 2 views of the abdomen FINDINGS: Bowel gas pattern is nonobstructive. No free air or pneumatosis identified. Moderate colonic stool burden. Cholecystectomy clips are present. No acute osseous abnormality identified. The lung bases are grossly clear. IMPRESSION: Nonobstructive bowel gas pattern. Electronically authenticated by: HANG MACIAS Date: 2021-07-19 00:50 Normal [facility] XR pre/post mri xrayon 05-08 XR pre/post mri xray [facility] [place] [address] [place] [address] MRI Report Signed Patient: Areli Hawkins MR#: [id number] : 1945 Acct:[id number] Age/Sex: 75 / F ADM Date: 05/08/21 Loc: [facility] Room: Type: [facility] Attending Dr: Nohelia Kline PA-C Ordering Provider: Nohelia Kline PAC Date of Service: 05/08/21 MR/MR lumbar spine wo con: R20.2 ([id number]) XR/XR pre/post mri xray: R20.2 Copies to: Nohelia Kline [facility] MR lumbar spine wo con, XR pre/post mri xray 05/08/2021 8:32 AM SIGNS AND SYMPTOMS: Numbness in toes and feet PROTOCOL: Frontal and lateral radiograph of the lumbar spine. Multiplanar multisequence MR images of the lumbar spine were obtained without IV contrast. COMPARISON: None. FINDINGS: Lumbar spine radiographs: There is anterior O formation throughout. The 7 mm of anterolisthesis of L4 upon L5. There is moderate to severe disc height loss at L4-5 with moderate disc height loss at L3-L4. Facet degenerative changes are present throughout. General changes are noted in the sacroiliac joints. There is evidence of prior cholecystectomy. Atherosclerotic changes are partly visualized in the abdominal aorta. MRI lumbar spine: Disc height loss and alignment is as noted above. There is preservation of vertebral body heights. The marrow signal is within normal limits. The conus terminates at the superior endplate of the L1 vertebral body level. No epidural or paraspinous fluid collection is appreciated. There is a simple cyst in the left renal cortex at the inferior pole require no further follow-up. At T12-L1: There is a normal disc, central canal, and neural foramen. At L1-L2: There is a normal disc, central canal, and neural foramen. At L2-L3: Facet degenerative changes are present bilaterally with mild bilateral neural foraminal narrowing. At L3-L4: There is a circumferential disc bulge with facet and ligament with degenerative change. Moderate bilateral neural foraminal narrowing is noted left greater than right. There is also moderate spinal canal narrowing. At L4-L5: There is 7 mm of anterolisthesis of L4 upon L5. There is a circumferential disc bulge with facet and ligament flavum degenerative change contributing to severe spinal canal stenosis. There is severe bilateral neural foraminal narrowing with mass effect on the exiting L4 nerve roots bilaterally. There is also mass effect on the traversing nerve roots of the cauda equina. At L5-S1: There is left greater than right facet hypertrophy. There is lateral osteophyte formation bilaterally which appears to cause mild mass effect on the exiting L5 nerve roots bilaterally. There is mild left neural foraminal narrowing. MR/MR lumbar spine wo con IMPRESSION: At L4-L5: There is 7 mm of anterolisthesis of L4 upon L5. There is a circumferential disc bulge with facet and ligament flavum degenerative change contributing to severe spinal canal stenosis. There is severe bilateral neural foraminal narrowing with mass effect on the exiting L4 nerve roots bilaterally. There is also mass effect on the traversing nerve roots of the cauda equina. At L5-S1: There is left greater than right facet hypertrophy. There is lateral osteophyte formation bilaterally which appears to cause mild mass effect on the exiting L5 nerve roots bilaterally. There is mild left neural foraminal narrowing. Impression dictated by: Emery Shine M.D.05/08/2021 2:52 PM Dictation Location: [place] [address] Transcribed By: [facility] 05/08/21 0122 Dictated By: Emery Shine II, MD 05/08/21 1405 Signed By: 05/08/21 815 [facility] XR pre/post mri xrayon 02-03 XR pre/post mri xray [facility] [place] [address] [place] [address] MRI Report Signed Patient: Areli Hawkins MR#: [id number] : 1945 Acct:[id number] Age/Sex: 75 / F ADM Date: 02/03/21 [facility]: Type: [facility] Attending Dr: Moises Miguel MD Ordering Provider: Moises Miguel MD Date of Service: 02/03/21 MR/MR cervical spine wo con: R20.2 PARESTHESIA R29.9 HYPER REFLEXIA M17.12 CERVICAL SPNDY ([id number]) XR/XR pre/post mri xray: C SPINE Copies to: Moises Miguel MD MRI cervical spine without contrast TECHNIQUE: Multiplanar T1 and T2-weighted imaging of the cervical spine obtained. HISTORY:Numbness and tingling in the feet bilaterally. History spinal stenosis. COMPARISON:None Cervical lordosis is straightened. No listhesis identified in supine position. The craniocervical junction is unremarkable. Anterior endplate spurs are present. Mild C5-6 disc space narrowing is present. Mild C5-6 diffuse disc bulge is present. No disc extrusion. No cervical spine fracture or bone marrow edema is identified. The facets are in adequate alignment. The central canal is patent. The neuroforamen are patent. MR/MR cervical spine wo con IMPRESSION: Mild C5-6 spondylosis with disc bulge. Patent central canal and neural foramen. 3 views of the cervical spine obtained for pre-MRI assessment. C5-6 disc space narrowing and endplate spurring noted. Mild C5-6 bilateral uncovertebral osteophytosis with mild narrowing noted. The cervical lordosis is adequate. No fracture. No listhesis. Mild facet degeneration. IMPRESSION: Mild C5-6 spondylosis. Impression dictated by: Allan Salinas M.D.02/03/2021 5:00 PM Dictation Location: [place] [address] Transcribed By: [facility] 02/03/21 170 Dictated By: Allan Salinas DO 02/03/21 165 Signed By: 02/03/211699 [facility] Gastroenterology Office/Clin ic Noteon 09-20-2020 Gastroenterology Office/Clinic Note Chief Complaint heartburn HPI Staff This is a 74 year old female who presents today for a referral by Michael Anaya for heartburn. History of Present Illness 74 years old white female with multiple medical problems, referred to me to be evaluated for heartburn and screening colonoscopy, she reported heartburn despite taking omeprazole 40 g p.o. daily, she has history of hypertension for which she takes hydrochlorothiazide and atenolol, she reports mild nausea without vomiting, no dysphagia, she is due for screening colonoscopy, denies any melena, occasional rectal bleeding Review of Systems PHQ Score Initial Depression Screen Score: 1 Constitutional: no fever, no chills, no sweats, no weakness Skin: no Jaundice, no rash, no lesions, no petechiae ENMT: no ear pain, no sore throat, no congestion, no hoarseness Respiratory: no shortness of breath, no cough, no orthopnea, no wheezing Cardiovascular: no chest pain, no palpitations, no edema Gastrointestinal: no nausea, no vomiting, no diarrhea, no Constipation noGI bleeding no abd pain no dysphagia no bloating yes heartburn Genitourinary: no dysuria, no hematuria, no discharge, no pain Musculoskeletal: no back pain, no trauma Neurologic: no numbness, no sleeping problems Additional ROS info: Except as noted in the above Review of Systems and in the History of Present Illness all other systems have been reviewed and are negative or noncontributory. Physical Exam Vitals & Measurements T: 36.7 ?C (Temporal Artery) HR: 65(Peripheral) RR: 16 BP: 135/80 HT: 162.6 cm HT: 162.56 cm WT: 90.1 kg WT: 90.1 kg BMI: 34.1 Constitutional: Appearance: well developed Skin: Inspection: no rashes, ulcers, icterus , or telangiectasias. Eyes: Conjunctivae/lids: normal conjunctivae and lids. ENMT: Hearing: within normal limits. Lips/Teeth/Gums: normal oral mucosa Neck: Neck: normal motion, central trachea. Respiratory: Percussion: thorax normoresonant. Auscultation: normal breath sounds; no rubs, wheezes, rale or ronchi. Cardiovascular: Auscultation: normal rhythm, S1 and S2; no rubs, murmurs or gallop. Peripheral: no edema Gastrointestinal/Abdome n: Abdomen: normal consistency and bowel sounds; no tenderness or masses. Liver/Spleen: normal size and consistency, not palpable. Rectal: deferred Musculoskeletal: Gait/station: normal gait Assessment/Plan 1. Heartburn (R12: Heartburn) 2. Personal history of colonic polyps (Z86.010: Personal history of colonic polyps) Follow-up No qualifying data available Patient Education Colonoscopy Heartburn Problem List/Past Medical History Ongoing No qualifying data Historical No qualifying data Procedure/Surgical History Colonoscopy, EGD (esophagogastroduodenos copy) gastric outlet reduction. Medications atenolol, Oral, Daily Effexor XR, Oral, Daily hydrochlorothiazide, Oral, Daily omeprazole, Oral, Daily Suprep Bowel Prep Kit oral liquid, 177 mL, Oral, As Directed Allergies No Known Allergies Social History Tobacco Never (less than 100 in lifetime) Tobacco Use:., 08/25/2020 Family History Diabetes mellitus type 1: Mother. Primary malignant neoplasm of prostate: Father. Normal [facility] Comment on above: Result Comment: Elec tronically Signed By: TEODORO BAÑUELOS, Cristal\.br\Date and Time Signed: 09/20/20 14:17 EST Coding Summary.on 09-06-2020 Coding Summary. CODING DATE: 020 FINAL [facility] STATUS: Home (Routine DC) PAYOR: Medicare ADMIT DX: REASON FOR VISIT DX: Z01.818 Encounter for other preprocedural examination FINAL DX: PRINCIPAL: Z01.818 Encounter for other preprocedural examination SECONDARY: Z20.828 Contact with and (suspected) exposure to other viral communicable diseases PYMT PROC APC STAT DESCRIPTION DOCTOR NAME DATE NOTE: The code number assigned matches the documented diagnosis and / or procedure in the patient's chart. However, the narrative phrase printed from the coding software may appear abbreviated, or result in slightly different terminology. Coded By: Tatianna Burris Date Saved: 09/06/2020 08:17 am [facility] Priority Order-Blair 2019 Priority Order-STAT Comment Invalid Interpretation Code [facility] Comment on above: Result Comment: Rece ived Performed at: [facility] [address] [place], [place] [id number] MD Hilda Palmer Performed By: #### S ARS-CoV-2, CHETAN, [id number] ####[facility] [id number] [place] [address] SARS-CoV-2, NAAon 09-02-2020 SARS-CoV-2 (COVID-19) RNA CHETAN+probe Ql (Resp) Not detected Invalid Interpretation Code Not Detected [facility] Comment on above: Result Comment: This nucleic acid amplification test was developed and its performance characteristics determined by [facility]. Nucleic acid amplification tests include PCR and TMA. This test has not been FDA cleared or approved. This test has been authorized by FDA under an Emergency Use Authorization (EUA). This test is only authorized for the duration of time the declaration that circumstances exist justifying the authorization of the emergency use of in vitro diagnostic tests for detection of SARS-CoV-2 virus and/or diagnosis of COVID-19 infection under section 564(b)(1) of the Act, 21 U.S.C. 360bbb-3(b) (1), unless the authorization is terminated or revoked sooner. When diagnostic testing is negative, the possibility of a false negative result should be considered in the context of a patient's recent exposures and the presence of clinical signs and symptoms consistent with COVID-19. An individual without symptoms of COVID-19 and who is not shedding SARS-CoV-2 virus would expect to have a negative (not detected) result in this assay. Performed at: [facility] [address] [place], [place] [id number] MD Hilda Palmer Performed By: #### S ARS-CoV-2, CHETAN, [id number] #### [facility] [address] [place] [address] Consent for Procedure/Surger yon 08-26-2020 Consent for Procedure/Surgery [id number] D:[address] [facility] Physician Orderon 08-26-2020 Physician Order [id number] CD:[address] [facility] Ambulatory Clinical Summaryo n 08-25-2020 Ambulatory Clinical Summary {[id number]}CD:[id number] Normal [facility] Patient Educationon 08-25-20 20 Patient Education Family Medicine Colonoscopy A colonoscopy is an exam to evaluate your entire colon. In this exam, your colon is cleansed. A long fiberoptic tube is inserted through your rectum and into your colon. The fiberoptic scope (endoscope ) is a long bundle of enclosed and very flexible fibers. These fibers transmit light to the area examined and send images from that area to your caregiver. Discomfort is usually minimal. You may be given a drug to help you sleep (sedative ) during or prior to the procedure. This exam helps to detect lumps (tumors ), polyps, inflammation, and areas of bleeding. Your caregiver may also take a small piece of tissue (biopsy ) that will be examined under a microscope. LET YOUR CAREGIVER KNOW ABOUT: ? Allergies to food or medicine. ? Medicines taken, including vitamins, herbs, eyedrops, [id number] medicines, and creams. ? Use of steroids (by mouth or creams). ? Previous problems with anesthetics or numbing medicines. ? History of bleeding problems or blood clots. ? Previous surgery. ? Other health problems, including diabetes and kidney problems. ? Possibility of , if this applies. BEFORE THE PROCEDURE ? A clear liquid diet may be required for 2 days before the exam. ? Ask your caregiver about changing or stopping your regular medications. ? Liquid injections (enemas ) or laxatives may be required. ? A large amount of electrolyte solution may be given to you to drink over a short period of time. This solution is used to clean out your colon. ? You should be present 60 minutes prior to your procedure or as directed by your caregiver. AFTER THE PROCEDURE ? If you received a sedative or pain relieving medication, you will need to arrange for someone to drive you home. ? Occasionally, there is a little blood passed with the first bowel movement. Do not be concerned. FINDING OUT THE RESULTS OF YOUR TEST Not all test results are available during your visit. If your test results are not back during the visit, make an appointment with your caregiver to find out the results. Do not assume everything is normal if you have not heard from your caregiver or the medical facility. It is important for you to follow up on all of your test results. HOME CARE INSTRUCTIONS ? It is not unusual to pass moderate amounts of gas and experience mild abdominal cramping following the procedure. This is due to air being used to inflate your colon during the exam. Walking or a warm pack on your belly (abdomen ) may help. ? You may resume all normal meals and activities after sedatives and medicines have worn off. ? Only take [id number] or prescription medicines for pain, discomfort, or fever as directed by your caregiver. Do not use aspirin or blood thinners if a biopsy was taken. Consult your caregiver for medicine usage if biopsies were taken. SEEK IMMEDIATE MEDICAL CARE IF: ? You have a fever. ? You pass large blood clots or fill a toilet with blood following the procedure. This may also occur 10 to 14 days following the procedure. This is more likely if a biopsy was taken. ? You develop abdominal pain that keeps getting worse and cannot be relieved with medicine. Document Released: 09/06/2001 Document Revised: 12/01/2012 Document Reviewed: 04/21/2009 ExitCare? Patient Information ?2014 [employer]. Heartburn Heartburn is a painful, burning sensation in the chest. It may feel worse in certain positions, such as lying down or bending over. It is caused by stomach acid backing up into the tube that carries food from the mouth down to the stomach (lower esophagus ). CAUSES ? Large meals. ? Certain foods and drinks. ? Exercise. ? Increased acid production. ? Being overweight or obese. ? Certain medicines. SYMPTOMS ? Burning pain in the chest or lower throat. ? Bitter taste in the mouth. ? Coughing. DIAGNOSIS If the usual treatments for heartburn do not improve your symptoms, then tests may be done to see if there is another condition present. Possible tests may include: ? X-rays. ? Endoscopy. This is when a tube with a light and a camera on the end is used to examine the esophagus and the stomach. ? A test to measure the amount of acid in the esophagus (pH test). ? A test to see if the esophagus is working properly (esophageal manometry). ? Blood, breath, or stool tests to check for bacteria that cause ulcers. TREATMENT ? Your caregiver may tell you to use certain ubtx-jya-nznfwwk medicines (antacids, acid reducers) for mild heartburn. ? Your caregiver may prescribe medicines to decrease the acid in your stomach or protect your stomach lining. ? Your caregiver may recommend certain diet changes. ? For severe cases, your caregiver may recommend that the head of your bed be elevated on blocks. (Sleeping with more pillows is not an effective treatment as it only changes the position of your head and does not impro (more content not included)... Normal [facility] Physician Orderon 08-25-2020 Physician Order [id number] D:127 [facility] Physician Referralon 020 Physician Referral [id number] D:127 [facility] Vital Signs Date Time Vital Sign Value Performing Clinician Faci lity 08-27-2023 14:00-0500 Body height 162.56 cm Franchisee Gladiator Other [facility] Other 08-27-2023 14:00-0500 Body mass index (BMI) [Ratio] 42.36 kg/m2 Franchisee Gladiator Other [facility] Other 08-27-2023 14:00-0500 Body weight 111.95 kg Franchisee Gladiator Other [facility] Other 08-27-2023 14:00-0500 Diastolic blood pressure 79 mm[Hg] Franchisee Gladiator Other [facility] Other 08-27-2023 14:00-0500 Respiratory rate 20 /min Franchisee Gladiator Other [facility] Other 08-27-2023 14:00-0500 Systolic blood pressure 142 mm[Hg] Franchisee Gladiator Other [facility] Other 05-29-2023 10:30-0400 Body height 162.56 cm Anurag Ball Other [facility] Other 05-29-2023 10:30-0400 Body mass index (BMI) [Ratio] 41.23 kg/m2 Anurag Ball Other [facility] Other 05-29-2023 10:30-0400 Body weight 108.95 kg Anurag Ball Other [facility] Other 05-29-2023 10:30-0400 Diastolic blood pressure 76 mm[Hg] Anurag Ball Other [facility] Other 05-29-2023 10:30-0400 Respiratory rate 12 /min Anurag Ball Other [facility] Other 05-29-2023 10:30-0400 Systolic blood pressure 123 mm[Hg] Anurag Ball Other [facility] Other 05-03-2023 10:00-0400 Body height 162.56 cm Anurag Ball Other [facility] Other 05-03-2023 10:00-0400 Body mass index (BMI) [Ratio] 40.3 kg/m2 Anurag Ball Other [facility] Other 05-03-2023 10:00-0400 Body weight 106.51 kg Anurag Ball Other [facility] Other 05-03-2023 10:00-0400 Diastolic blood pressure 75 mm[Hg] Anurag Ball Other [facility] Other 05-03-2023 10:00-0400 Respiratory rate 12 /min Anurag Ball Other [facility] Other 05-03-2023 10:00-0400 Systolic blood pressure 120 mm[Hg] Anurag Ball Other [facility] [employer] Other 01-16-2022 11:55-0400 Body height 162.6 cm Marie Lea MD Work Phone: [facility] 01-16-2022 11:55-0400 Body weight 95.25 kg Marie Lea MD Work Phone: [facility] 01-16-2022 11:55-0400 Diastolic blood pressure 62 mm[Hg] Marie Lea MD Work Phone: [facility] 01-16-2022 11:55-0400 Heart rate 64 /min Marie Lea MD Work Phone: [facility] 01-16-2022 11:55-0400 Systolic blood pressure 150 mm[Hg] Marie Lea MD Work Phone: [facility] 10-05-2021 11:53-0500 Body height 162.56 cm Anurag Thornton Ball Work Phone: [facility] [address] [place] Work Phone: 10-05-2021 11:53-0500 Body mass index (BMI) [Ratio] 34.67 kg/m2 Anurag E Ball Work Phone: [facility] [address] [place] Work Phone: 10-05-2021 11:53-0500 Body surface area Derived from formula 1.96 m2 Anurag E Ball Work Phone: [facility] [address] [place] Work Phone: 10-05-2021 11:53-0500 Body weight 91.63 kg Anurag E Ball Work Phone: [facility] [address] [place] Work Phone: 10-05-2021 11:53-0500 Diastolic blood pressure 80 mm[Hg] Anurag E Ball Work Phone: [facility] [place] [address] [place] Work Phone: 10-05-2021 11:53-0500 Heart rate 69 /min Anurag Bolton Work Phone: [facility] [place] [address] [place] Work Phone: 10-05-2021 11:53-0500 Systolic blood pressure 127 mm[Hg] Anurag Norberto Oj Work Phone: [facility] [place] [address] [place] Work Phone: 06-22-2021 11:00-0400 Body height 162.56 cm Carlos Gong Other [facility] Other 06-22-2021 11:00-0400 Body mass index (BMI) [Ratio] 35.18 kg/m2 Carlos Gong Other [facility] Other 06-22-2021 11:00-0400 Body weight 92.99 kg Carlos Gong Other [facility] Other 06-22-2021 11:00-0400 Diastolic blood pressure 84 mm[Hg] Carlos Gong Other [facility] Other 06-22-2021 11:00-0400 Respiratory rate 18 /min Carlos Gong Other [facility] Other 06-22-2021 11:00-0400 Systolic blood pressure 138 mm[Hg] Carlos Gong Other [facility] Other Encounters Encounter Date Encounter Type Care Provider Facility Start: 10-01-2023 End: 10-01-2023 ambulatory Anurag Bolton Other [facility] Other Start: 10-01-2023 Telephone encounter Anurag [facility] Start: 09-10-2023 End: 09-10-2023 ambulatory Anurag Ball Other [facility] Other Start: 09-10-2023 Telephone encounter Anurag Bolton [facility] Start: 08-28-2023 End: 08-28-2023 ambulatory Anurag Ball Other [facility] Other Start: 08-28-2023 Telephone encounter Anurag Ball [facility] Start: 08-27-2023 End: 08-27-2023 ambulatory Anurag Ball Other [facility] Other Start: 08-27-2023 Office outpatient visit 15 minutes Anurag Ball [facility] Start: 08-06-2023 End: 08-06-2023 ambulatory Anurag Ball Other [facility] Other Start: 08-06-2023 Nursing evaluation o f patient and report Anurag Ball [facility] Start: 06-10-2023 End: 06-10-2023 ambulatory Anurag Ball Other [facility] Other Start: 06-10-2023 Telephone encounter Anurag Ball [facility] Start: 05-29-2023 End: 05-29-2023 ambulatory Anurag Ball Other [facility] Other Start: 05-29-2023 Office outpatient visit 15 minutes Anurag Ball [facility] Start: 05-06-2023 End: 05-06-2023 ambulatory Anurag Ball Other [facility] Other Start: 05-06-2023 Telephone encounter Anurag Ball [facility] Start: 05-03-2023 End: 05-03-2023 ambulatory Anurag Ball Other [facility] Other Start: 05-03-2023 Office outpatient visit 25 minutes Anurag Ball [facility] Start: 04-25-2023 End: 04-25-2023 ambulatory Anurag Ball Other [facility] Other Start: 04-25-2023 Telephone encounter [facility] Start: 02-01-2022 Telephone encounter Sabas Lea MD Work Phone: Neurology Comment on above: Results Start: 01-16-2022 End: 01-16-2022 Patient encounter procedure Marie Lea MD Work Phone: Neurology Comment on above: 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); Abnormal finding of blood chemistry, unspecified Start: 12-28-2021 End: 12-28-2021 ambulatory Carlos Gong Other [facility] Other Start: 12-28-2021 Office outpatient visit 15 minutes Carlos Gong [facility] Start: 12-23-2021 End: 12-23-2021 Adult health examination Anurag Bolton Other [facility] Other Start: 10-05-2021 Office outpatient visit 25 minutes Anurag Bolton Work Phone: [facility] [address] [place] Work Phone: Start: 09-07-2021 End: 09-08-[address] ROSI GONG Facility:[facility] Start: 08-30-2021 End: 08-30-[address] ROSI GONG Facility:[facility] Start: 07-29-2021 End: 07-31-2021 Evaluation and management of inpatient DR YARITZA COOK Facility:[facility] Start: 07-19-2021 End: 07-19-[address] ROSI GONG Facility:[facility] Start: 06-22-2021 Office outpatient ne w 45 minutes Carlos Gong [facility] Start: 09-22-2020 End: 09-23-[address] ROSI GONG Facility:[facility] Procedures Date Procedure Procedure Detail Performing Clinician Start: 01-11-2022 Adult depression scr eening assessment Marie Lea MD Work Phone: Start: 04-08-2015 End: 12-23-2021 Screening mammography Anurag Bolton Other Start: 05-04-2014 End: 12-23-2021 General examination of patient Anurag Bolton Other Hernia repair Anurag moy Work Phone: Hysterectomy Anurag Bolton Work Phone: Screening for malign ant neoplasm of breast Anurag Bolton Other Small intestine excision Tay oBlton Work Phone: Tonsillectomy Anurag moy Work Phone: Plan of Treatment Date Care Activity Detail Author Start: 01-16-2025 DIABETES SCREEN DIABETES SCREEN [facility] Start: 01-11-2023 Adult depression screening assessment DEPRESSION SCREENING [facility] Start: 01-16-2022 End: 03-18-2022 CRYOGLOBULIN, QUAL, REFLEX TO CASSI AND IGG,A,M [facility] Work Phone: Comment on above: Expected: 01/16/2022 , Expires: 03/18/2022 Start: 09-23-2021 ADVANCE DIRECTIVE DISCUSSION ADVANCE DIRECTIVE DISCUSSION [facility] Start: 2012 BONE DENSITY BONE DENSITY [facility] Start: 2012 PNEUMOVAX AGE 65 AND OVER WITH 5YR LOOKBACK (#1) PNEUMOVAX AGE 65 AND OVER WITH 5YR LOOKBACK (#1) [facility] Start: 1997 SHINGRIX VACCINE (1 of 2) SHINGRIX VACCINE (1 of 2) [facility] Start: 1992 COLOGUARD (FIT-DNA) COLOGUARD (FIT-D NA) [facility] Start: 1992 Colonoscopy COLONOSCOPY [facility] Start: 1992 COLORECTAL CANCER SCREENING COLORECTAL CANCER SCREENING [facility] Start: [address] COLONOGRAPHY [facility] Start: 1992 FECAL OCCULT BLOOD FECAL OCCULT BLOO D [facility] Start: 1992 LIPID SCREEN LIPID SCREEN [facility] Start: 1992 [facility] Start: 1987 Mammography MAMMOGRAM [facility] Start: 1966 Urine microalbumin profile DTAP,TDAP,TD (1 - Tdap) [facility] Start: 1965 HEPATITIS C SCREENING HEPATITIS C [facility] Immunizations Immunization Date Immunization Notes Care Provider Dwight recinos 08-06-2023 influenza, high dose seasonal, preservative-free Anurag Oj Other [facility] Other 08-07-2022 COVID-19 Pfizer (Pediatric) Anurag Bolton Other [facility] Other 08-07-2022 influenza virus vaccine, split virus (incl. purified surface antigen) Anurag Oj Other [facility] Other 01-30-2022 COVID-19 Vaccine Pfi zer - Documentation Purposes Only Anurag Oj Other [facility] Other 08-08-2021 Fluzone High-Dose Quadrivalent 0.7 ML Intramuscular Suspension Prefilled Syringe Anurag Bolton Work Phone: [facility] [place]note 2[facility] Work Phone: 06-27-2021 Moderna COVID-19 Vaccine 100 MCG/0.5ML Intramuscular Suspension Anurag Norberto Bolton Work Phone: [facility] [address] [place] Work Phone: 06-20-2021 Pfizer-BioNTech COVID-19 Vacc 30 MCG/0.3ML Intramuscular Suspension Anurag Bolton Work Phone: [facility] [place] [address] [place] Work Phone: 11-17-2020 Pfizer-BioNTech COVID-19 Vacc 30 MCG/0.3ML Intramuscular Suspension Anurag Bolton Work Phone: [facility] [address] [place] Work Phone: 10-27-2020 Pfizer-BioNTech COVID-19 Vacc 30 MCG/0.3ML Intramuscular Suspension Anurag Bolton Work Phone: [facility] [address] [place] Work Phone: 06-28-2020 Fluad Quadrivalent 0 .5 ML Intramuscular Prefilled Syringe Anurga Bolton Work Phone: [facility] [address] [place] Work Phone: 07-07-2019 influenza, high dose seasonal, preservative-free Anurag Bolton Work Phone: [facility] [place]note 2[place] Work Phone: 07-15-2018 influenza, high dose seasonal, preservative-free Anurag Bolton Work Phone: [place] [address] [place] Work Phone: 07-23-2017 influenza, high dose seasonal, preservative-free Anurag Bolton Work Phone: [address] Work Phone: 02-05-2017 pneumococcal conjuga te vaccine, 13 valent Anurag Bolton Work Phone: [address] Work Phone: 02-05-2017 pneumococcal Conjuga te, unspecified formulation; Translations: [Need for prophylactic vaccination against Streptococcus pneumoniae (pneumococcus)] Anurag Bolton Other [facility] [employer] Other 07-05-2016 influenza virus vaccine, split virus (incl. purified surface antigen) Anurag Bolton Other [facility] [employer] Other 07-05-2016 influenza, high dose seasonal, preservative-free Anurag Bolton Work Phone: [facility] [address] [employer] Work Phone: 09-23-2015 pneumococcal polysaccharide vaccine, 23 valent Anurag Bolton Work Phone: [facility] [address] [employer] Work Phone: 08-30-2015 influenza, seasonal, injectable, preservative free [facility]ag [facility] [place] Work Phone: 07-05-2014 influenza, high dose seasonal, preservative-free [facility]urag Bolton [facility] [address] [place] Work Phone: 02-02-2013 pneumococcal polysaccharide vaccine, 23 valent [facility]urag Bolton [facility] [address] [place] [address] Work Phone: Payers Date Payer Category Payer Unknown MMO MMO MEDICARE SUPPLEMENT [id number] 2020-Present [phone] [address] [place] [address] Indemnity [id number] 2012 Medicare MEDICARE MEDICAR E A AND B [id number] 2012-Present [phone] [address] [address] [place] [address] Medicare [id number] 1959 Medicare [id number] 1959 Unknown [id number] 1947 Unknown [id number] 1945 Unknown [id number] 1947 Unknown [id number] 1947 Unknown [id number] 1945 Unknown [id number] Unknown Social History Date Type Detail Facility Daily caffeine consumption Daily caffeine consumption [facility] [employer] Other Comment on above: 3 diet pops daily.; Start: 01-16-2022 Tobacco smoking stat us SDIS Never smoked tobacco [facility] Start: 01-16-2022 Tobacco use and exposure Smokeless tobacco non-user [facility] Start: 01-16-2022 Alcohol intake Ex-drinker (finding) [facility] Start: 1945 Sex Assigned At Female [facility] Start: 12-31-2021 End: 01-10-2022 Exposure to SARS-CoV-2 (event) Not sure [facility] Sex Assigned At Sex Assigned At Bir th [facility] [employer] Other Clinical Notes 06-22-2021 to 10-01-2023 Note Date & Type Note Facility 10-01-2023 Evaluation note Encounter Date Diagnosis Assessment Notes Sep, Primary hypertension (ICD-10 - I10) [facility] [employer] Other 12-05-2023 Evaluation note* Encounter Date Diagnosis Assessment Notes Treatment Notes Treatment Clinical Notes Aug, Acute left-sided low back pain without sciatica (ICD-10 - M54.50) The patient is instructed to avoid bending, twisting or lifting. They are to use intermittent heat and ice as needed. They may schedule a massage or gentle manipulation. They may safely use Tylenol as needed. Salon Pas patch as needed Aug, Pain of left hip (ICD-10 - M25.552) ROM exercises, heat/ice and Tylenol Aug, Primary hypertension (ICD-10 - I10) This patient is instructed to consume a healthy, low-fat, low-salt diet. They are also encouraged to continue exercise to achieve/maintain a normal BMI. NSAIDs may increase BP while taking. Aug, Morbid (severe) obesity due to excess calories (ICD-10 - E66.01) This patient has been instructed on a low-fat, high-fiber diet. They are instructed to reduce calories, portion sizes and snacks. It is recommended that they exercise for 30 minutes, 3-5 times weekly. Increases arthritic symptoms Aug, Body mass index [BMI] 40.0-44.9, adult (ICD-10 - Z68.41) [facility] Other 12-05-2023 Evaluation note* Encounter Date Diagnosis Assessment Notes Treatment Notes Treatment Clinical Notes Aug, Acute left-sided low back pain without sciatica (ICD-10 - M54.50) The patient is instructed to avoid bending, twisting or lifting. They are to use intermittent heat and ice as needed. They may schedule a massage or gentle manipulation. They may safely use Tylenol as needed. Salon Pas patch as needed Aug, Pain of left hip (ICD-10 - M25.552) ROM exercises, heat/ice and Tylenol Aug, Primary osteoarthritis of left hip (ICD-10 - M16.12) ROM execises, heat/ice and Tylenol. Begin Etodolac. XR hip Refer to PT and/or pain clinic Aug, Primary hypertension (ICD-10 - I10) This patient is instructed to consume a healthy, low-fat, low-salt diet. They are also encouraged to continue exercise to achieve/maintain a normal BMI. NSAIDs may increase BP while taking. Aug, Morbid (severe) obesity due to excess calories (ICD-10 - E66.01) This patient has been instructed on a low-fat, high-fiber diet. They are instructed to reduce calories, portion sizes and snacks. It is recommended that they exercise for 30 minutes, 3-5 times weekly. Increases arthritic symptoms Aug, Body mass index [BMI ] 40.0-44.9, adult (ICD-10 - Z68.41) [facility] Other 09-06-2023 Evaluation note* Encounter Date Diagnosis Assessment Notes Treatment Notes Treatment Clinical Notes May, Moderate episode of recurrent major depressive disorder (ICD-10 - F33.1) Healthy diet and exercise Weaned off Prozac due to its ineffectiveness. Initiate Lexapro: 1/2 first week then 1 qd Initiate Wellbutrin: start after 2 wks on Lexapro May, Varicose veins of both lower extremities with pain (ICD-10 - I83.813) Avoid salt and elevate lower extremities, support stockings, inspect legs and feet daily for blisters and ulcerations. DDimer negative Venous US negative for DVT May, Morbid (severe) obesity due to excess calories (ICD-10 - E66.01) This patient has been instructed on a low-fat, high-fiber diet. They are instructed to reduce calories, portion sizes and snacks. It is recommended that they exercise for 30 minutes, 3-5 times weekly. May, Body mass index [BMI] 40.0-44.9, adult (ICD-10 - Z68.41) May, Central stenosis of spinal canal (ICD-10 - M48.00) The patient is instructed to avoid bending, twisting or lifting. They are to use intermittent heat and ice as needed. They may schedule a massage or gentle manipulation. They may safely use Tylenol as needed. Continue OTC treatment for now. [facility] Other 08-11-2023 Evaluation note* Encounter Date Diagnosis Assessment Notes Treatment Notes Treatment Clinical Notes Apr, Impaired fasting glucose (ICD-10 - R73.01) Healthy diet and exercise, A1C yearly This patient is following a comprehensive diabetic treatment plan. They are checking their feet daily for calluses and nonhealing ulcers. They are being seen for yearly dilated eye examinations. Goals: SBP less than 130, LDL less than 100, FBS less than 140, AC and A1C less than 7%. They are checking their BS daily, will which are reviewed at the office visit. Continue regular routine monitoring of A1C,] Microalbumin, Dilated eye exam and Foot exam Check A1C Apr, Primary hypertension (ICD-10 - I10) This patient is instructed to consume a healthy, low-fat, low-salt diet. They are also encouraged to continue exercise to achieve/maintain a normal BMI. Apr, Moderate episode of recurrent major depressive disorder (ICD-10 - F33.1) Healthy diet, increase activity/exercise. Wean off Prozac (long time use w/o benefit) Initiate Lexapro at 5mg and titrate to 10mg Initiate Wellbutrin once off Prozac Apr, Varicose veins of both lower extremities with pain (ICD-10 - I83.813) Avoid salt and elevate lower extremities, support stockings, inspect legs and feet daily for blisters and ulcerations. DDimer to screen for DVT Low risk w/o swelling, travel hx, recent hospital stay or surgery Apr, Pain of right lower extremity (ICD-10 - M79.604) Rest, elevate and restart compression stockings Apr, Morbid (severe) obesity due to excess calories (ICD-10 - E66.01) This patient has been instructed on a low-fat, high-fiber diet. They are instructed to reduce calories, portion sizes and snacks. It is recommended that they exercise for 30 minutes, 3-5 times weekly. Apr, Body mass index [BMI] 40.0-44.9, adult (ICD-10 - Z68.41) Apr, Fatigue, unspecified type (ICD-10 - R53.83) r/o anemia and thyroid disorder Apr, D-dimer, elevated (ICD-10 - R79.89) r/o DVT w/ venous [employer] Other 05-12-2022 Miscellaneous Notes* Telephone Encounter - Marie Lea MD - 02/01/2022 11:07 AM EDT Spoke to patient over the phone regarding recent test results. No obvious etiology to her symptoms,and at the last visit was noted that her symptoms were out of proportion to the signs of her physical exam, and suspected that her symptoms may not be entirely due to a polyneuropathy. Could be multifactorial given her spine issues with instrumentation, age, chronic accumulation of microvascular changes. Discussed results with patient, who states her symptoms are about the same as they were at the lastoffice visit. Did request seeing physical therapy locally, and has been doing some aquatic excercises. Is planning for another lumbar spine procedure this summer. Was going to discuss repeat imaging with her local physician, states this has not been performed yet. Has been using some lidocaine cream with some relief. [facility]* Patient Instructions* Marie Lea MD - 01/16/2022 3:08 PM EDT Images from the original note were not included. Preventing Falls at Home Falls are common, often dreaded events in the lives of older people. Aside from the obvious injuries and even that may result, fall can cause wide-ranging consequences including loss of independence, mental decline, decreased activity and mobility. Younger people are also at risk of falling, especially those with chronic illnesses and fatigue. Ways to reduce risk for falling Examine diet and medications. Warm foods and alcohol dilate blood vessels, which can lead to dizziness when standing. Sleep aids, antidepressants and pain medications can also increase the likelihoodof a fall. Get a vision exam. Poor vision, cataracts and glaucoma increase the chances of falling. Check foot gear. Shoes should fit snugly and have a sturdy, nonskid sole and a broad, low heel Participate in a physician-approved exercise program to build and maintain muscle strength and improve balance and coordination. Programs that use ankle weights or stretch bands are excellent for muscle-strengthening. Water aerobics programs and low-impact Jose Chi programs have also been shown to improve balance and coordination. Increase vitamin D intake. Vitamin D improves muscle strength and increases the amount of calcium the body is able to absorb and deposit in bones. How to prevent falls from common hazards Floors Remove all loose wires, cords, and throw rugs. Minimize clutter. Make sure rugs are anchoredand smooth. Keep furniture in its usual place. Chairs -- Use chairs with straight backs, armrests and firm seats. Add firm cushions to existing pieces to add height. Bathroom Install grab bars and non-skid tape in the tub or shower. Use a bathtub transfer bench or a shower chair with a back support Use an elevated toilet seat and/or safety rails to assist standing from a low surface. Do not use towel racks or bathroom tissue holders to help you stand. Lighting Make sure halls, stairways, and entrances are well-lit. Install a night light in your bathroom or hallway. Make sure there is a light switch at the top and bottom of the staircase. Turn lights on if you get up in the middle of the night. Make sure lamps or light switches are within reach of the bed if you have to get up during the night. Kitchen Install non-skid rubber mats near the sink and stove. Clean spills immediately. Store frequently used utensils, pots, pans between waist and eye level. This helps prevent reaching and bending. Sit when getting things out of lower cupboards. Living room / Bedrooms - Place furniture with wide spaces in between, giving enough room to move around. Establish a route through the living room that gives you something to hold onto as you walk. Stairs Make sure treads, rails, and rugs are secure. Install a rail on both sides of the stairs. Ifstairs are a threat, it might be helpful to arrange most of your activities on the lower level to reduce the number of times you must climb the stairs. Entrances and doorways Install metal handles on the healy adjacent to the doorknobs of all doors tomake it more secure as you travel through the doorway. Tips for maintaining balance Keep at least one hand free at all times. Try using a backpack or gerry pack to hold things rather than carrying them in your hands. Never carry objects in both hands when walking as this interferes with keeping your balance. Attempt to swing both arms from front to back while walking. This might require a conscious effort if Parkinson s disease has diminished your movement. It will, however, help you to maintain balance and posture, and reduce fatigue. Consciously lift your feet off of the ground when walking. Shuffling and dragging of the feet is a common culprit in losing your balance. When trying to navigate turns, use a U technique of facing forward and making a wide turn, ratherthan pivoting sharply. Try to stand with your feet shoulder-length apart. When your feet are close together for any lengthof time, you increase your risk of losing your balance and falling. Do one thing at a time. Don t try to walk and accomplish another task, such as reading or looking around. The decrease in your automatic reflexes complicates motor function, so the less distraction, the better. Do not wear rubber or gripping soled shoes, they might catch on the floor and cause tripping. Move slowly when changing positions. Use deliberate, concentrated movements and, if needed, use a grab bar or walking aid. Count 15 seconds between each movement. For example, when rising from a seated position, wait 15 seconds after standing to begin walking. If balance is a continuous problem, you might want to consider a walking aid such as a cane, walking stick, or walker. Once you ve mastered walking with help, you might be ready to try it on your ownagain. [facility] NoteHNO ID: [id number] Author: Samantha Lopez MD Service: ? Author Type: Physician Type: Progress Notes Filed: 01/22/2022 3:56 PM Note Text: [facility] New [facility] Evaluation Consulting Provider: Anurag Bolton ([place]) [address] [facility] [id number] Consultation requested by the above doctor for an opinion regarding polyneuropathy. My final recommendations will be communicated back to the requesting physician by way of shared Medical record or letter to requesting physician via US mail. History of Present Illness: Ms. Hawkins is a pleasant 76 year old left handed female who presents for evaluation of discomfort in the bilateral feet. PMH of lumbar canal stenosis, HTN, HLD, Depression, GERD, uterine cancer s/p hysterectomy without chemo/radiation. Patient is accompanied by her daughter who helped provide some history. Not many records available through care everywhere, but patient brought a large amount of printed records which were reviewed. Reports that about 7 years ago, started noticing an uncomfortable tingling sensation in her bilateral feet. States that this has gradually progressed, and currently it is about 3-4 inches above her ankles bilaterally. States this is about equal on both sides, and describes this as a relatively constant pins and needles sensation and states that she will also get an associated vibration type feeling. States she feels this has gradually worsened. Has taken gabapentin 600TID for this in the past, reports this made her feel funny, and stopped as she could not tell a difference between taking it or not taking it. Denies being on any other medications for this, including topicals (although notes state that she was on Lyrica 75mg for some time). Denies any symptoms in her hands. Denies karolyn weakness of the legs. States she normally ambulates independenlty, but worried about unsteadiness. States that she has had one fall in the shower, and has near falls maybe every other day. States that she can feel temperature in the shower and feel hot water on her feet, and occasionally has some difficulty finding the pedals when she drives. Did have a workup by a local neurologist in [facility], which performed MR of the lumbar spine where she was found to have marked canal narrowing of the L4-5 secondary to disc bulging, and moderate of greater foraminal narrowing L3-4 and L4-5 (records of imaging 2015). Reports having had more recent imaging, imaging disc not available, and states this was worse. Reports they are planning to go forward with a procedure in the fall of 2021. Denies any neck pain or radicular symptoms going down the arms. Denies any low back pain, and states she has had sciatica type sensation down her legs in the past, but nothing recently. Reports some chronic, mild stress incontinence but states this has been stable. Otherwise denies any bowel or bladder incontinence. Does reports developing dry eyes and dry mouth over the past several months. No history of DM. PMH as above in HPi Past surgical history includes tonsillectomy, hysterectomy, umbilical hernia reparir Medications: Current Outpatient Medications Medication Sig - atenolol (TENORMIN) 50 mg tablet - FLUoxetine (PROZAC) 20 mg capsule Take 60 mg by mouth once daily. - hydroCHLOROthiazide (HYDRODIURIL, ESIDRIX) 25 mg tablet - hydrocortisone 2.5 % cream APPLY TO AFFECTED AREAS ON FACE TWICE A DAY FOR FLARES SATURDAY - SATURDAY, WEEKENDS OFF No current facility-administered medications for this visit. Allergies: See updated allergies documented below. 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 No* known history of neuromuscular disease otherwise. ROS: CONSTITUTIONAL: No reported fevers, chills, night sweats, or significant unintentional weight loss. EYES: No visual changes indicated. No eye pain or orbital swelling reported. HEENT: No hearing changes or vertiginous symptoms indicated. No history of nose bleeds reported. RESPIRATORY: No reported cough, sputum, wheezing and dyspnea. CARDIOVASCULAR: Negative for significant chest pain, and palpitations per report. GI: Negative for significant abdominal discomfort, blood in stools or black stools reported. No recent reported change in bowel habits. : No reported history of incontinence. No dark/cola colored urine reported. MUSCLOSKELETAL: No history of significant joint pain or swelling, or myalgias reported. SKIN: Negative for pertinent lesions, rash, and itching per report. HEMATOLOGY/ONCOLOGY: Negative for reported prolon (more content not included)... [facility]04[facility]26[facility]22 History of Present illness Narrative* Samantha Lopez MD - 01/16/2022 1:00 PM EDT Images from the original note were not included. [facility] New Patient Evaluation Consulting Provider: Anurag Bolton ([facility]) [address] [facility] [address] Consultation requested by the above doctor for an opinion regarding polyneuropathy. My final recommendations will be communicated back to the requesting physician by way of shared Medical record or letter to requesting physician via US mail. History of Present Illness: Ms. Hawkins is a pleasant 76 year old left handed female who presents for evaluation of discomfort in the bilateral feet. PMH of lumbar canal stenosis, HTN, HLD, Depression, GERD, uterine cancer s/p hysterectomy without chemo/radiation. Patient is accompanied by her daughter who helped provide some history. Not many records available through care everywhere, but patient brought a large amount of printed records which were reviewed. Reports that about 7 years ago, started noticing an uncomfortable tingling sensation in her bilateral feet. States that this has gradually progressed, and currently it is about 3-4 inches above her ankles bilaterally. States this is about equal on both sides, and describes this as a relatively constant pins and needles sensation and states that she will also get an associated vibration type feeling. States she feels this has gradually worsened. Has taken gabapentin 600TID for this in the past, reports this made her feel funny, and stopped as she could not tell a difference between taking it or not taking it. Denies being on any other medications for this, including topicals (although notes state that she was on Lyrica 75mg for some time). Denies any symptoms in her hands. Denies karolyn weakness of the legs. States she normally ambulates independenlty, but worried about unsteadiness. States that she has had one fall in the shower, and has near falls maybe every other day. States that she can feel temperature in the shower and feel hot water on her feet, and occasionally has some difficulty finding the pedals when she drives. Did have a workup by a local neurologist in [facility], which performed MR of the lumbar spine where she was found to have marked canal narrowing of the L4-5 secondary to disc bulging, and moderateof greater foraminal narrowing L3-4 and L4-5 (records of imaging 2015). Reports having had more recent imaging, imaging disc not available, and states this was worse. Reports they are planning to go f orward with a procedure in the fall of 2021. Denies any neck pain or radicular symptoms going down the arms. Denies any low back pain, and states she has had sciatica type sensation down her legs in the past, but nothing recently. Reports some chronic, mild stress incontinence but states this has been stable. Otherwise denies any bowel or bladder incontinence. Does reports developing dry eyes and dry mouth over the past several months. No history of DM. PMH as above in HPi Past surgical history includes tonsillectomy, hysterectomy, umbilical hernia reparir Medications: Current Outpatient Medications Medication Sig atenolol (TENORMIN) 50 mg tablet FLUoxetine (PROZAC) 20 mg capsule Take 60 mg by mouth once daily. hydroCHLOROthiazide (HYDRODIURIL, ESIDRIX) 25 mg tablet hydrocortisone 2.5 % cream APPLY TO AFFECTED AREAS ON FACE TWICE A DAY FOR FLARES SATURDAY - SATURDAY, WEEKENDS OFF No current facility-administered medications for this visit. Allergies: See updated allergies documented below. 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 No* known history of neuromuscular disease otherwise. ROS: CONSTITUTIONAL: No reported fevers, chills, night sweats, or significant unintentional weight loss. EYES: No visual changes indicated. No eye pain or orbital swelling reported. HEENT: No hearing changes or vertiginous symptoms indicated. No history of nose bleeds reported. RESPIRATORY: No reported cough, sputum, wheezing and dyspnea. CARDIOVASCULAR: Negative for significant chest pain, and palpitations per report. GI: Negative for significant abdominal discomfort, blood in stools or black stools reported. No recent reported change in bowel habits. : No reported history of incontinence. No dark/cola colored urine reported. MUSCLOSKELETAL: No history of significant joint pain or swelling, or myalgias reported. SKIN: Negative for pertinent lesions, rash, and itching per report. HEMATOLOGY/ONCOLOGY: Negative for reported prolonged bleeding, bruising easily, and swollen nodes. ENDOCRINE: Negative for reported significant cold or heat intolerance, no reported goitrous neck swelling or polydipsia PSYCH: No reported depression or anxiety symptoms. No reported SI or HI. NEURO: Per HPI above. No reported sleep disturbance. Vital Signs: BP 150/62 Pulse 64 Ht 162.6 cm (5' 4 ) Wt 95.3 kg (210 lb) BMI 36.05 kg/m General Medical Exam: General: Awake, alert, interactive, no acute distress, good nutritional status, normal development,well-kept caucasion female who apepars stated age Skin: no obvious skin breakdown, rashes, discoloration or cyanosis HEENT: No abnormality of observable eyes, EOM intact, no obvious trauma of head. Cardiac: Good peripheral perfusion of all limbs without cyanosis or edema Pulm: even chest rise and fall, nonlabored respirations. Neurologic Exam: Mental status including: orientation to time, place, person, recent and remote memory, attention span and concentration, language, and fund of knowledge is essentially normal. CRANIAL NERVES: II: No visual field defects. Funduscopic examination without appreciable abnormalities. III-IV-: Pupils equal round and reactive to light. Normal conjugate, extra-ocular eye movements in all directions of gaze. No nystagmus. No ptosis prior to or post sustained upgaze. V: Normal facial sensation.VII: Normal facial symmetry and movements. No pathologic facial reflexes. VIII: Normal hearing and vestibular function. IX-X: Normal palatal movement. XI: Normal shoulder shrug and head rotation. XII: Normal tongue strength and range of motion, no deviation or fasciculation. Speech is not dysarthric. MOTOR: No appreciable atrophy, fasciculations or abnormal movements. No pronator drift. No scapular winging. Tone is within normal limits, including absence of myotonia. Strength/Power (MRC grade- out of 5): Neck Flexion 5 Neck Extension 5 Upper extremity power, when graded out of 5, revealed: Right Left shoulder abduction 5- 4+ Reports some left shoulder pain shoulder adduction 5 5 shoulder internal rotation 5 5 shoulder external rotation 5 5 elbow extension 5 5 elbow flexion 5 5 forearm supination 5 5 forearm pronation 5 5 wrist extension 5 5 wrist flexion 5 5 finger extension 5 5 deep finger flexion (D2-3) 5 5 deep finger flexion (D4-5) 5 5 thumb flexion with FPL 5 5 thumb abduction with APB 5 5 finger abduction 5 5 Lower extremity strength, when reported the same way, showed: Right Left hip flexion 4+ 4+ hip extension 5 5 hip adduction 5 5 hip abduction 5 5 knee flexion 5 5 knee extension 5 5 ankle dorsiflexion 5 5 ankle plantar flexion 5 5 foot inversion 5 5 foot eversion 5 5 toe extension 5- 5- toe flexion 5- 5- No difficulty squatting and getting up from squatting- Does not use arms Able to rise from a chair without using arms. Deep Tendon Reflexes (DTRs): Right Left Biceps 2+ 2+ Brisk throughout Triceps 2+ 2+ Brachioradialis 2+ 2+ Patellar 2+ 2+ Achilles 2+ 0 Vertical spread: No Crossed adductors: No Mcgill's sign: No Tromner's sign: No Plantar responses: flexor Clonus: No SENSORY: light touch-reports intact in all limbs Pinprick-reports intact in all limbs Temperature- reports decreased 50% in the toes and forefoot bilaterally with quick return to normal Vibration-decreased slightly in toes (about 7 seconds) and normalizes at ankle. Proprioception-intact in all limbs. Romberg's sign absent. No extinction on double simultaneous stimulation. Straight leg raising-bilaterally negative COORDINATION/GAIT: Normal finger-to- nose-finger and [id number] bilaterally. Intact rapid alternating movements bilaterally. Gait narrow-based and stable. Tandem and stressed gait intact. OUTSIDE RECORDS: The patient provided outside medical records, which were reviewed during the course of the visit. The relevant details are summarized below: Outside records including EMGs, clinic notes, and imaging reviewed. Imagine disc was uploaded into system during visit. Brought imaging of MR brain, Mr cervical spine, MR lumbar spine dated 2015. Reports having some more recent imaging (2021) of the lumbar spine but did not bring disc for review. Imaging report of MR lumbar spine was included in records patient brought, and selected records included at end of note. IMPRESSION: Ms. Hawkins is a 76 year old left handed female who presents for evaluation of discomfort in the bilateral feet. PMH of lumbar canal stenosis, HTN, HLD, Depression, GERD, uterine cancer s/p hysterectomy without chemo/radiation. She has a clinical history which sounds consistent with a large fiber polyneuropathy, however her outside EMG reports (2015 and 2020) show no evidence for a polyneuropathy and her clinical examination shows only some very mild sensory deficits which could be attributed to age related findings. Would also expect that if she had a small fiber neuropathy, would have more clinical exam findings. Her description of symptoms do not sound entirely consistent with a sensory radiculopathy or myelopathy. Did discuss options, and plan to try and rule out some potentially treatable causes for polyneuropathy, and will obtain: B12, Copper, MMA, RONNIE, Serum Immunofixation, kappa:lambda ration, cryoglobulinwith reflex, ESR, CRP, TSH, A1c. Did discuss that it is possible that some other potential etiologies could include such things as cervical cord compression, or issues with balance could be due to chronic microvascular disease in the brain given her risk factors. Discussed obtaining MR brain and cervical spine, which patient and patient's daughter will think about this and may consider depending on lab work. Did discuss treatment options, unfortunately it appears that gabapentin and lyrica were not adequately controlling symptoms. Is currently on fluoxetine, and so would want to avoid medications such ascymbalta or venlafaxine. Did discuss with patient that she could mention these options to the provider who is managing the fluoxetine, but the risks of changing medication given that she reports fluoxetine has helped with her depression would need to be taken into consideration. Discussed using OTClidocaine cream to help manage symptoms, which she was interested in trying. PLAN/RECOMMENDATIONS: -Labs: B12, Copper, MMA, RONNIE, Serum Immunofixation, kappa:lambda ration, cryoglobulin with reflex, ESR, CRP, TSH, A1c. -Consider MR brain and MR Cervical spine, patient will think about this and discuss with PCP -Discussed OTC lidocaine cream and application - The impression above as well as the plan as outlined below were extensively discussed with the patient (in the company of her daughter) who voiced understanding. All questions were answered to their stated satisfaction. - The patient was counseled on pertinent fall precautions per the printed material provided today, and as noted under the Patient Instructions section below - When available, results of the above investigations and possible further recommendations will be communicated to the patient via telephone/Bimicihart. Patient to call office if not contacted after expected testing turnaround time. To aid with communication, patients (and primary care physicians) can sign up for [employer]Bloom (or Thinkspeed), which allows online appointment scheduling, transmission of labs results and chart notes, andsecure email communication. To establish either account, visit [email or web address]. Marie Lea MD Neuromuscular Medicine (NM) Fellow In the service of Dr. Samantha Lopez (NM Staff) [facility] STAFF PHYSICIAN NOTE OF PERSONAL INVOLVEMENT IN CARE I have reviewed the history and physical examination obtained and documented by the fellow and I personally participated in the crenshaw components. I have discussed the case and management of the patient's care with the patient. My impression and plans are as noted above. 60 minutes, total visit with greater than 50% counseling and coordination of care. Patient had questions regarding disease progression and plan of care, all of which were addressed. Samantha Lopez MD cc: Referring provider: Anurag Bolton ([facility]) [address] [place] [id number] Areli Hooksevertonarnol [id number] [address] [place] [id number] [facility] Evaluation note* Encounter Date Diagnosis Assessment Notes Treatment Notes Treatment Clinical Notes Dec, Lumbar stenosis with neurogenic claudication (ICD-10 - M48.062) I have independently reviewed the DEXA scan showing some mildly poor bone quality in the forearm; the spine and hip appear to be overall good. If this patient needed surgical intervention I think she would be acceptable. I have independently reviewed the lumbar spine x-ray showing spondylolisthesis at L4-5 and the MRI which shows severe stenosis at L4-5. When talking to the patient she actually does have neurogenic claudication she is just recovering from a bowel obstruction that was significant. I talked to her about having her back fixed with a lumbar fusion and she would like to put off this at this point at least for the summer. She would like to recover some strength and activity. She is aware of her limitations, they have not changed a great deal. She continues to have neurogenic claudication. I told her I would see her again at the end of May for re-evaluation. Dec, Sensory neuropathy (ICD-10 - G62.9) [facility] Other 11-06-2021 NoteCONSULTATION Consultation Date: 07/30/2021 REASON FOR CONSULTATION: Abdominal pain, abnormal CT scan. HISTORY OF PRESENT ILLNESS: Patient is a 75-year-old female with history of hypertension as well as remote history of uterine cancer who presented to the emergency room with mid and lower abdominal pain as well as an episode of nausea and vomiting. She had previously been treated 12 days ago for an E. coli UTI with Keflex and had been in the emergency room at that time with similar complaints. She does report that she completed the course of antibiotics, had been eating normally, however, on Saturday developed some mid abdominal pain. She describes it as an ache. No real radiation. It was throughout the mid and lower abdomen. She had a poor appetite at that time and then developed an episode of nausea and vomiting x1. She was having somewhat looser stools as well as but no blood in the stools or vomit. She presented to the emergency room yesterday for evaluation where she was found to have an elevated white blood cell count as well as a low potassium. CT scan that was done without contrast revealed some dilated loops of small bowel. No free fluid or free air. No inflammatory changes. There was a fair amount of stool in the lower colon. This was read as possible small bowel obstruction. Patient was to have an NG tube however this was not done. Overnight she did have several formed bowel movements, did report that her pain is improved. She denies significant pain this morning. She has had no further episodes of nausea or vomiting. She does not have an appetite this morning. Past abdominal surgeries significant for cholecystectomy as well as hysterectomy for uterine cancer. Patient does report a history of some diverticulosis. Last colonoscopy she believes was 5 years ago. She did not have polyps at that time. She has no family history of GI malignancy or inflammatory bowel disease. She denies aspirin and nonsteroidal antiinflammatory drug use. ALLERGIES: She has no known drug allergies. HOME MEDICATIONS: Include atenolol, fluoxetine, hydrochlorothiazide and omeprazole. PAST SURGICAL HISTORY: As noted in the HPI. She has also had a previous cardiac catheterization. SOCIAL HISTORY: Patient is . She denies tobacco use, alcohol use or illicit drug use. FAMILY HISTORY: Positive for cardiac disease in her mother and Alzheimer's disease in her father. TEN-SYSTEM REVIEW OF SYSTEMS: CONSTITUTIONAL: Negative for recent weight loss or weight gain. She denies increased fatigue or lightheadedness. HEENT: Has had no earache or tinnitus. No sinus congestion. No sore throat or hoarseness. CARDIOVASCULAR: No chest pain, palpitations or syncope. PULMONARY: No chronic cough, shortness of breath or hemoptysis. GASTROINTESTINAL: She has had the abdominal pain and the one episode of nausea and vomiting as well as some loose stools. No melena, hematochezia or bright red blood per rectum. GENITOURINARY: No dysuria, frequency, urgency or hematuria. NEUROLOGIC: No headache, seizures or tremors. HEMATOLOGIC: No easy bruising or bleeding. INTEGUMENTARY: No heat or cold intolerance. ENDOCRINE: No polydipsia, polyphagia or polyuria. PHYSICAL EXAMINATION: VITAL SIGNS: The patient is afebrile. Blood pressure is 117/71, heart rate is 82 and regular, respiratory rate is 18, O2 saturation is 96% on room air. GENERAL: She is an obese female, no acute distress. HEENT: Normocephalic, atraumatic. Sclerae are anicteric. Conjunctivae are not injected. Oral mucosa is moist without lesions. NECK: Supple. There is no adenopathy, thyromegaly or JVD. LUNGS: Clear bilaterally. CARDIAC: Regular rhythm and rate without appreciable murmurs, rubs or gallops. ABDOMEN: Obese. It is soft. It is nondistended. There are hyperactive bowel sounds. There is mild tenderness throughout with no peritoneal signs. No masses. No hepatosplenomegaly. No hernias. No CVA tenderness. SKIN: Warm and dry without lesions, rashes or ulcers. NEUROLOGIC: Nonfocal, nonlateralizing. LABORATORY DATA: White blood cell count this morning is down to 12,000. Potassium was improved with replacement. IMAGING STUDIES: Acute abdominal series this morning revealed mildly dilated loops of small bowel. No air-fluid levels. No free air. ASSESSMENT: That of a 75-year-old female with nonspecific abdominal complaints, dilated small bowel on CT. Overall, this may be ileus related to her UTI recurrent, urine culture is pending. I did place her on empiric antibiotics for possible recurrent UTI versus early pyelonephritis. This also may represent antibiotic effect or viral gastroenteritis versus partial small bowel obstruction which appears to be less likely. Overall, she does appear to be improving. RECOMMENDATIONS: I would recommend continued supportive care, begin clear liquids as tolerated. Continue empiric antibiotics. Await repeat urine cu (more content not included)...[id number] * Encounter Date Diagnosis Assessment Notes Treatment Notes Treatment Clinical Notes May, Sensory neuropathy (ICD-10 - G62.9) This patient has a comorbidity of a sensory neuropathy of the feet. This bothers her a relatively reasonable amount, it impairs her ability to walk and definitely impacts her balance. This will not get better with an operation on the back. This has been explained to the patient May, Lumbar stenosis with neurogenic claudication (ICD-10 - M48.062) I have independently reviewed the MRI of the lumbar spine and the plain x-ray and the report. This patient has a severe spinal stenosis L4-5 with a spondylolisthesis at L4-5. The remainder of her canal is good; her bone quality is difficult to determine. She cannot stand for more than 5 or 10 minutes without buttock and leg discomfort. Her ability to walk has not been determined yet. I have asked her to look into how long she can walk before symptoms arise. I have asked her to obtain a DEXA scan of the spine hips and forearm looking for osteoporosis and a 6 view lumbar spine. I will see her for reevaluation after these studies. May, Post menopausal syndrome (ICD-10 - N95.1) [facility] Other Evaluation note* Diagnosis Hereditary and idiopathic peripheral neuropathy- Primary Unspecified hereditary and idiopathic peripheral neuropathy Abnormal finding of blood chemistry, unspecified documented in this encounter [facility] note* Diagnosis Abnormality of gait- Primary documented in this encounter [facility] noteNo InformationNoshriners hospitals for children sendwithus Other History general Narrative - Reported* Type Description Date Medical History Uterine Cancer Medical History Hypertension Medical History Obesity Medical History Depression Medical History Anxiety Medical History cholecystecomy Surgical History cholecystectomy Surgical History total hysterectomy Hospitalization History SEE ABOVE [facility] Other History general Narrative - Reported* Type Description Date Medical History Uterine Cancer Medical History Hypertension Medical History Obesity Medical History Depression Medical History Anxiety Medical History cholecystecomy Surgical History cholecystectomy Surgical History total hysterectomy Surgical History bowel surgery Hospitalization History SEE ABOVE [facility] Other History general Narrative - Reported* Type Description Date Medical History Uterine Cancer Medical History Hypertension Medical History Obesity Medical History Depression Medical History Anxiety Medical History cholecystecomy Surgical History Problem Title : CHOL ECYSTECTOMY (00335), Problem Status : Active, Surgical History Problem Title : EXPL ORATORY LAPAROTOMY WITH LYSIS OF ADHESIONS (69218), Problem Status : Active, Surgical History Problem Title : past surgical history reviewed, Problem Description : past surgical history reviewed, Problem Comment : reviewed - no changes required, Problem Status : Resolved, Surgical History Problem Title : surg ical procedures, hx of, Problem Description : surgical procedures, hx of, Problem Comment : Coty 1996 Total Hyst 2009 - Uterine cancer - Phibbs (sees Bridgette now), Problem Status : Resolved, Surgical History Problem Title : AMANDA AND BSO (TOTAL ABDOMINAL HYSTERECTOMY AND BILATERAL SALPINGO-OOPHORECTOMY) (22998), Problem Status : Active, Hospitalization History SEE ABOVE [facility] Other Reason for referral (narrative)* Reason Referral for left si ded low back pain and left hip pain Diagnosis 1 Acute left-sided low back pain without sciatica (M54.50) Diagnosis 2 Primary osteoarthrit is of left hip (M16.12) Referral Organization [facility] Ike tamayo Referring Provider First Name Anurag Referring Provider Last Name Oj Referring Provider Specialty Internal Me dicgian Referred Organization [facility] Referred Address [address], [place],[address] Referred Provider Specialty Pain Medicin e Referral Priority Routine General Notes Patient being referr ed for persistent left sided low back pain and left hip pain. She locates the pain near the SI joint and posterior left hip. She is w/o radicular pain, N/T or lower extremity weakness. XR reveal moderate to severe degenerative arthritis of the lumbar spine and hip. It is difficult to determine etiology of her pain but likely related to lumbar spine, SI joint and hip. She is being referred for further evaluation and treatment. Clinical Notes Include XR of lumbar spine and left hip [facility] Other Summary Purpose Family History Unknown Family Member Name Dates Details Family history of diabetes m ellitus: Mother(V18.0, Z83.3) Status:Active Family history of myocardial infarction: Mother(V17.3, Z82.49) Status:Active Advance Directives No Advanced Directives Records FoundNo Advanced Directives Records FoundNo Advanced Directives Records FoundNo Advanced Directives Records FoundNo Advanced Directives Records Found Chief Complaint * ARELI HAWKINS is being seen for follow-up of a hospitalization for D/C [facility] 08/09/2021. * Patient is in the office for the first time after being seen in consultation at [facility] last month for an episode of atrial fibrillation following small bowel surgical release which was short and resolved spontaneously. Her echocardiogram was normal. She has no previous car diac history but has hypertension on medical therapy. She was discharged home on only beta-louis therapy and hydrochlorothiazide and has done well. She denies any recurrent events of atrial fibrillation and denies any orthopnea PND or dyspnea on exertion. Her physical examination was remarkable for obesity otherwise was unremarkable. I reviewed with the patient the case in details and provide advice as noted below. * Assessment/recommendations: * 1 an episode of atrial fibrillation following small bowel obstruction surgery. No recurrences and no need for long-term therapy with antiarrhythmics or anticoagulation. Echocardiogram was normal riskfor CAD is low. * 2 hypertension currently under control on hydrochlorothiazide and metoprolol * 3 significant obesity encouraged the patient to work on her weight with diet and exercise * 4 lymphedema of the lower extremities not consequential * 5 history of deep vein thrombosis in the remote past with no recurrences. * Follow-up is on a as needed basis. Additional Source Comments INFORMATION SOURCE (unrecogn ized section and content) DATE CREATED AUTHOR 08/02/2021 [facility] DATE CREATED AUTHOR AUTHOR'S ORGANIZ ATION 09/13/2021 [facility] DATE CREATED AUTHOR AUTHOR'S ORGANIZ ATION 10/06/2021 [facility] DATE CREATED AUTHOR AUTHOR'S ORGANIZ ATION 11/10/2021 [facility] DATE CREATED AUTHOR AUTHOR'S ORGANIZ ATION 02/03/[address] [facility] Source Comments (unrecognize d section and content) In the event this informatio n is protected by the Federal Confidentiality of Alcohol and Drug Abuse Patient Records regulations: The Federal rules restrict any use of the information to criminally investigate or prosecute any alcohol or drug abuse patient.[facility] the event this information is protected by the Federal Confidentiality of Alcohol and Drug Abuse Patient Records regulations: The Federal rules restrict any use of the information to criminally investigate or prosecute any alcohol or drug abuse patient.[facility] Reason for Visit (unrecogniz ed section and content) refill Reason Comments New Patient Reason Comments Results Care Teams (unrecognized sec tion and content) Trimmer Operator Relationship Specialty Start Date End Date Anurag Bolton, DO [address] [place] [address] Physician Internal Medicine 01/10/22 Trimmer Operator Relationship Specialty Start Date End Date Anurag Bolton, DO [address] [place] [address] Physician Internal Medicine 01/10/22 FOR RECORDS PERTAINING TO PATIENTS WHO ARE OR HAVE BEEN ENROLLED IN A CHEMICAL DEPENDENCY/SUBSTANCEABUSE PROGRAM, SOME INFORMATION MAY BE OMITTED. This clinical summary was aggregated from multiple sources. Caution should be exercised in using it in the provision of clinical care. This summary normalizes information from multiple sources, and as a consequence, information in this document may materially change the coding, format and clinical context of patient data. In addition, data may be omitted in some cases. CLINICAL DECISIONS SHOULD BE BASED ON THE PRIMARY CLINICAL RECORDS. [employer] [facility]. provides no warranty or guarantee of the accuracy or completeness of information in this document.
--- NOTE | 2023-10-07 13:36 | P.CN_ITS ---
Consult Note: HPI Data of Consult Patient: new to practice Consult date: 10/07/23 Requesting Physician: Bryant Richardson MD Primary Care Provider: Anurag Bolton DO Consult Narrative Reason for consult: low back pain Narrative: 77yof who presents for evaluation. she has had longstanding low back pain, now worsened in past several months. 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 has engaged in >6 weeks of provider directed home exercise program, with minimal benefit. has been evaluated by neurosurgery, who did not recommend surgery at the time. utilizes tylenol, cannot tolerate nsaids. denies adverse med side effects. cc:: CC: Bryant Richardson MD Review of Systems ROS Status of ROS 10 or more systems reviewed and unremark able except as noted in history and below Exam Narrative Exam Narrative: Psych-alert and oriented x 3. Attentive and appropriate, constitutionally normal, displays normal mood and affect per situation.? There are no obvious deficits in memory, reasoning, or intellect.? Skin-no obvious rashes, bruising, erythema noted to the patient's area of pain. Extremities- extremities are warm with minimal edema and palpable pulses. Lumbar-no significant tenderness to palpation noted in the lumbar spine and paraspinal musculature.? Pain is elicited with extension, and lateral rotation of the lumbar spine. Range of motion is slightly diminished with these motions due to pain. Facet loading maneuvers are positive bilaterally and do appear to be concordant with the patient's normal complaints of pain.? Coordination remains intact.? Gait remains non-antalgic. Assessment and Plan Assessment and Plan (1) Lumbar spondylosis: Plan 77yof who presents for evaluation. failed conservative measures, as noted above. imaging reviewed, as noted. given symptoms and imaging, prudent to attempt diagnostic bilateral l4-5, l5-s1 medial branch block under fluoroscopic guidance with intention of proceeding to radiofrequency ablation. she is in agreement. meds reviewed. instructed her to decrease tylenol to 1000mg tid prn and will trial flexeril 10mg tid prn. follow up after procedure.
== END 2023-10-07 12:24 | disposition home or self-care (01) ==
LOC: PM 12:23
PROVIDERS: PCP Internal Medicine; Visit Provider Anesthesiology
DX: M47.816 Spondylosis without myelopathy or radiculopathy, lumbar region (principal)
CPT/HCPCS: G0463

== ENCOUNTER 2023-10-14 08:40 | Day surgery (SDC) | payer MEDICARE, OTHER, SELFPAY ==
--- OUTSIDE RECORDS SUMMARY | 2023-10-14 08:48 | XMS_ITS | CCD ---
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 Name Role Phone BELTRAN, DR ROSI Thornton [...] Unavailable Unavailable Unavailable Anurag Bolton DO Unavailable [phone] Carlos Gong Unavailable Anurag Bolton Unavailable Allergies Allergy Classification Reported Allergen(s) Allergy Type Date of Onset Reaction(s) Facility (1 source) patient allergy list reviewed by nurse or physicia Propensity to adverse reactions 8 Comment:Done [employer] Other (1 source) Allergies Reconciled Propensity to adverse reactions Unknown [employer] Other Medications Current Medications Medication Drug Class(es) [...] Oral daily for 30 *Pick strength-form from [employer] for eRX* Feb, Active Start: 12-08-2021 take [...] times daily for 30 *Pick strength-form from [employer] for eRX* Dec, Active Completed/Discontinued Medications Medication [...] 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 No M protein is identified. [facility] Staff Review (MPA) Reviewed by Lilian Pizarro M.D., Ph.D [facility] METHYLMALONIC ACIDon 022 Methylmalonate [Moles/Vol] 216 nmol/L 79 - 376 nmol/L [facility] RONNIE BY IFA WITH REFLEXon Nuclear Ab IF (S) [Titer] Negative Negative [facility] COPPER BLOODon 01-17-2022 Copper [Mass/Vol] 94 ug/dL 80 - 155 ug/dL [facility] HGB A1Con 01-17-2022 Average glucose Estimated from glycated hemoglobin (Bld) [Mass/Vol] 100 mg/dL [facility] HbA1c (Bld) [Mass fraction] 5.1 % 4.3 - 5.6 % [facility] RONNIE BY IFA WITH REFLEXon Nuclear Ab IF (S) [Titer] Negative Normal Negative [facility] Comment on above: Order Comment: Speci men Type: BLOOD SPECIMEN Ordering Facility: [facility] Address: [address] [place] [address] Result Comment: Anti -nuclear antibody test is used as an aid in diagnosis of systemic autoimmune diseases. Where positive and clinically warranted, follow-up using disease-specific testing is recommended. Low positive titers are not uncommon with advanced age, certain chronic infections, and malignancies among others. Test methodology: Indirect fluorescence immunoassay (IFA) using HEp-2 cells. Performed By: #### A ALBERTINA ROSALES #### [facility] CLIA [id number] [address] [place] [address] OF [facility] C-REACTIVE PROTEIN (CRP)on 0 01-16-2022 CRP [Mass/Vol] mg/L <0.9 mg/dL [facility] CNOVon 01-16-2022 CNOV Office Visit (NENMMN ) ARELI HAWKINS ([id number]) 1945 F Date Time Provider Department 01/16/22 1:00 PM MARIE LEA NEKYMN During your visit today, we recorded the following information about you: Pulse Blood pressure Weight Height 64/minute 150/62 95.3 kg 1.626 m Samantha Lopez MD 01/22/2022 3:56 PM Signed [facility] New Patient Evaluation Consulting Provider: Anurag Bolton (Lauren) [address] [facility] [address] Consultation requested by the above doctor for [...] a workup by a local neurologist in [facility], which performed MR of the lumbar spine [...] of incon (more content not included)... Normal [facility] COPPER BLOODon 01-16-2022 Copper [Mass/Vol] 94 ug/dL Normal 80-155 [facility] Comment on above: Order Comment: Speci men Type: BLOOD SPECIMEN Ordering Facility: [facility] Address: [address] [place] [address] Result Comment: This test was developed and its performance characteristics determined by [facility]'s [facility] [place] ([facility]). It has not been cleared or approved by the FDA. [facility] is regulated under CLIA as qualified to perform high-complexity testing. This test is used for clinical purposes. It should not be regarded as investigational or for research. Performed By: #### A LUIS F ROSALES #### [facility] CLIA [id number] [address] [place] [address] [place] CRP SerPl-mCncon 01-16-2022 CRP [Mass/Vol] mg/L Normal <0.9 [facility] Comment on above: Order Comment: Speci men Type: BLOOD SPECIMEN Ordering Facility: [facility] Address: [address] [place] [address] Performed By: #### 3 016-3, B12, 1988-01 #### [facility] CLIA [id number] [address] [place] [address] [place] CRYOGLOBULIN, QUAL, REFLEX T O CASSI AND IGG,A,Mon 01-16-2022 CRYOGLOBULIN, QUALITATIVE NEG 72Hour Normal -72Hour [facility] Comment on above: Order Comment: Speci men Type: BLOOD SPECIMEN Ordering Facility: [facility] Address: [address] [place] [address] Result Comment: This test was developed and its performance characteristics determined by [facility]. It has not been cleared or approved by the US Food and Drug Administration. This test was performed in a CLIA certified laboratory and is intended for clinical purposes. Performed By: [facility] [address] [place] [id number] Rehabilitation Coordinator: Hilary Mariano MD Performed By: #### LUIS F JONES #### [facility] CLIA [id number] [address] [place] [address] [place] ESR Westergren method (Bld) [Velocity]on 01-16-2022 ESR (Bld) [Velocity] 8 mm/h 0 - 20 mm/hr [facility] ESR (Bld) [Velocity] 8 mm/h Normal 0-20 [facility] Comment on above: Order Comment: Speci men Type: BLOOD SPECIMEN Ordering Facility: [facility] Address: [address] [place] [address] Performed By: #### 4 537-7 #### [facility] CLIA [id number] [address] [place] [address] HGB A1Con 01-16-2022 Average glucose Estimated from glycated hemoglobin (Bld) [Mass/Vol] 100 mg/dL Normal [facility] Comment on above: Order Comment: Martha castorena Type: BLOOD SPECIMEN Ordering Facility: [facility] Address: [address] [place], [place] [address] Result Comment: eAG: (Estimated average glucose) is a calculated value from HgbA1c and is sales and merchandising representative of the average blood glucose level in the last 2-3 month period. Performed By: #### H BA1C #### [facility] CLIA [id number] [address] [place] [address] HbA1c (Bld) [Mass fraction] 5.1 % Normal 4.3-5.6 [facility] Comment on above: Order Comment: Martha castorena Type: BLOOD SPECIMEN Ordering Facility: [facility] Address: [address] [place] [address] Result Comment: Amer ican Diabetes Association guidelines indicate that patients with HgbA1c in the range 5.7-6.4% are at increased risk for development of diabetes, and intervention by lifestyle modification may be beneficial. HgbA1c greater or equal to 6.5% is considered diagnostic of diabetes. Performed By: #### H BA1C #### [facility] CLIA [id number] [address] [place] [address] IMMUNOFIXATION SCREEN, SERUM on 01-16-2022 MPA RESULT No M protein is identified. Normal No M protein is identified. [facility] Comment on above: Order Comment: [facility] Type: BLOOD SPECIMEN Ordering Facility: [facility] Address: [address] [place] [address] Performed By: #### A ALBERTINA ROSALES #### [facility] CLIA [id number] [address] [place], [place] [address] [place] STAFF REVIEW (MPA) Reviewed by Lilian Pizarro M.D., Ph.D Normal [facility] Comment on above: Order Comment: Speci men Type: BLOOD SPECIMEN Ordering Facility: [facility] Address: [address] [place] [address] Performed By: #### A ALBERTINA ROSALES #### [facility] CLIA [id number] [address] [place] [address] [place] KAPPA/CASTILLO,FREE,SERon 2021 Immunoglobulin light chains.kappa.free (S) [Mass/Vol] 31.2 mg/L High 3.3 - 19.4 mg/L [facility] Immunoglobulin light chains.kappa/Immunog lobulin light chains.lambda (S) [Mass ratio] 1.46 0.26 - 1.65 [facility] Immunoglobulin light chains.lambda.free [Mass/Vol] 21.4 mg/L 5.7 - 26.3 mg/L [facility] Immunoglobulin light chains.kappa.free (S) [Mass/Vol] 31.2 mg/L High 3.3-19.4 [facility] Comment on above: Order Comment: Speci men Type: BLOOD SPECIMEN Ordering Facility: [facility] Address: [address] [place] [address] Performed By: #### K LFRS #### [facility] CLIA [id number] [address] [place] [address] [place] Immunoglobulin light chains.kappa/Immunog lobulin light chains.lambda (S) [Mass ratio] 1.46 Normal 0.26-1.65 [facility] Comment on above: Order Comment: Speci men Type: BLOOD SPECIMEN Ordering Facility: [facility] Address: [address] [place] [address] Performed By: #### K LFRS #### [facility] CLIA [id number] [address] [place] [address] [place] Immunoglobulin light chains.lambda.free [Mass/Vol] 21.4 mg/L Normal 5.7-26.3 [facility] Comment on above: Order Comment: Speci men Type: BLOOD SPECIMEN Ordering Facility: [facility] Address: [address] [place] [address] Performed By: #### K LFRS #### [facility] CLIA [id number] [address] [place] [address] [place] Methylmalonate SerPl-sCncon 01-16-2022 Methylmalonate [Moles/Vol] 216 nmol/L Normal 79-376 [facility] Comment on above: Order Comment: Speci men Type: BLOOD SPECIMEN Ordering Facility: [facility] Address: [address] [place] [address] Result Comment: This test was developed and its performance characteristics determined by [facility] [place] ([facility]). It has not been cleared or approved by the FDA. [facility] is regulated under CLIA as qualified to perform high-complexity testing. This test is used for clinical purposes. It should not be regarded as investigational or for research. Performed By: #### 1 3964-2 #### [facility] CLIA [id number] [address] [place] [address] [place] TSH BLDon 01-16-2022 TSH Qn 1.380 m[IU]/L 0.270 - 4.200 mIU/L [facility] TSH SerPl-aCncon 01-16-2022 TSH Qn 1.380 m[IU]/L Normal 0.270-4.200 [facility] Comment on above: Order Comment: Speci men Type: BLOOD SPECIMEN Ordering Facility: [facility] Address: [address] [place] [address] Performed By: #### 3 016-3, B12, 1988-01 #### [facility] CLIA [id number] [address] [place] [address] [place] VITAMIN B12 BLOODon 01-17-20 Cobalamin (Vitamin B12) [Mass/Vol] 1194 pg/mL 232-1,245 pg/mL [facility] Cobalamin (Vitamin B12) [Mass/Vol] 1194 pg/mL Normal 232-1,245 [facility] Comment on above: Order Comment: Speci men Type: BLOOD SPECIMEN Ordering Facility: [facility] Address: [address] [place], [place] [address] Performed By: #### 3 016-3, B12, 1988-01 #### [facility] CLIA [id number] [address] [place] [id number] [place] Office Visit (Cardiology)on 10-05-2021 [...] for follow-up of a hospitalization for D/C [facility] 08/09/2021. Patient is in the office for the first time after being seen in consultation at [facility] last month for an episode of atrial [...] 05Oct2021 11:53AM Heart Rate69, L Brachial Artery Aiodxfru189, LUE, Sitting Kculhivud07, LUE, Sitting Height5 ft 4 in Nxuacb573 lb BMI Etjwodpvbr00.67 kg/m2 BSA Calculated1.96 Tobacco Useb) No Fall [...] Oct 05 2021 12:22PM EST (Author) Normal Incont Tobacco Screening.on 022 Fall risk assessment a) No falls within the last year -[facility] [address] [place] Work Phone: Tobacco use status CPHS b) No -[facility] [address] [place] Work Phone: CULTURE URINEon 09-07-2021 CULTURE URINE Culture Observations : LIGHT GROWTH OF MIXED GENITAL RAMSES. NO POTENTIAL PATHOGENS SEEN. Normal [facility] Comment on above: Performed By: #### B MP #### [facility] [address] [place] [address] Dr. Millie Flores UA RANDOM W/MICROSCOPICon BACTERIA TRACE Abnormal NONE SEEN [facility] Comment on above: Performed By: #### B MP #### [facility] [address] [place] [address] Dr. Millie Flores Bilirubin Ql (U) Negative Normal NEGATIVE [facility] Comment on above: Performed By: #### B MP #### [facility] [address] [place] [address] Dr. Millie Flores CAST NONE SEEN Normal NONE SEEN [facility] Comment on above: Performed By: #### B MP #### [facility] [address] [place] [address] Dr. Millie Flores Clarity (U) CLEAR Normal CLEAR [facility] Comment on above: Performed By: #### B MP #### [facility] [address] [address] [address] Millie Flores Color (U) LT. YELLOW Normal YELLOW [facility] Comment on above: Performed By: #### B MP #### [facility] [address] [place] [address] Dr. Millie Flores Crystals LM Nom (Urine sed) NONE SEEN Normal NONE SEEN [facility] Comment on above: Performed By: #### B MP #### [facility] [address] [address] [address] Millie Flores Epithelial cells LM Ql (Urine sed) FEW Abnormal NONE SEEN /RARE [facility] Comment on above: Performed By: #### B MP #### [facility] [address] [place] [address] Dr. Millie Flores Glucose Ql (U) Negative Normal NEGATIVE The [facility] Comment on above: Performed By: #### B MP #### [facility] [address] [place] [address] Dr. Millie Flores Hemoglobin Ql (U) Negative Normal NEGATIVE The [facility] Comment on above: Performed By: #### B MP #### [facility] [address] [place] [address] Dr. Millie Flores Ketones Ql (U) Negative Normal NEGATIVE The [facility] Comment on above: Performed By: #### B MP #### [facility] [address] [place] [address] Dr. Millie Flores LEUKOCYTES SMALL Abnormal NEGATIVE [facility] Comment on above: Performed By: #### B MP #### [facility] [address] [address] [address] Millie Flores MUCOUS TRACE Abnormal NONE SEEN [facility] Comment on above: Performed By: #### B MP #### [facility] [address] [place] [address] Dr. Millie Flores Nitrite Ql (U) Negative Normal NEGATIVE [facility] Comment on above: Performed By: #### B MP #### [facility] [address] [address] [address] Millie Flores pH (U) 5.5 [pH] Normal 5-9 [facility] Comment on above: Performed By: #### B MP #### [facility] [address] [place] [address] Dr. Millie Flores RBC 0-2 Normal 0-2 [facility] Comment on above: Performed By: #### B MP #### [facility] [address] [place] [address] Dr. Millie Flores SPEC GRAVITY >=1.030 Abnormal 1.005-<=1.02 5 [facility] Comment on above: Performed By: #### B MP #### [facility] [address] [place] [address] Dr. Millie Flores UA PROTEIN Negative Normal NEGATIVE/ TRACE [facility] Comment on above: Performed By: #### B MP #### [facility] [address] [place] [address] Dr. Millie Flores Urobilinogen Qn (U) 0.2 {Robert'U}/dL Normal 0.2 - 1. 0 [facility] Comment on above: Performed By: #### B MP #### [facility] [address] [place] [address] Dr. Millie Flores WBC 5-10 Abnormal NONE SEEN [facility] Comment on above: Performed By: #### B MP #### [facility] [address] [place] [address] Dr. Millie Flores MM screening mammo BI w/CADo n 09-04-2021 MM screening mammo BI w/CAD [facility] [place] [address] [place] [address] Mammography Report Signed Patient: Areli Hawkins MR#: [id number] : 1945 Acct:[id number] Age/Sex: 75 / F ADM Date: 09/02/21 Loc: [place] Room: Type: [facility] Attending Dr: Anurag Bolton DO Ordering [...] Marbella Mistry M.D.09/04/2021 11:34 AM Dictation Location: [facility] Transcribed By: [facility] 09/04/21 113 Dictated By: Marbella Mistry MD 09/04/211130 Signed By: 09/04/21 113 [facility] CBC AUTO DIFFon 08-30-2021 BASO # 0.0 103/ul Normal 0.0-0.1 [facility] Comment on above: Performed By: #### C BC #### [facility] [address] [place] [address] Dr. Millie Flores Basophils/100 WBC (Bld) 0.6 % Normal 0.2-2.0 [facility] Comment on above: Performed By: #### C BC #### [facility] [address] [place] [address] Dr. Millie Flores EO # 0.0 103/ul Normal 0.0-0.7 [facility] Comment on above: Performed By: #### C BC #### [facility] [address] [place] [address] Dr. Millie Flores Eosinophils/100 WBC (Bld) 0.9 % Normal 0.9-7.0 [facility] Comment on above: Performed By: #### C BC #### [facility] [address] [place] [address] Dr. Millie Flores Erythrocyte distribution width (RBC) [Ratio] 48.3 % Critically high 11.0-15.0 [facility] Comment on above: Performed By: #### C BC #### [facility] [address] [place] [address] Dr. Millie Flores Hematocrit (Bld) [Volume fraction] 38.1 % Normal 36.0-48.0 [facility] Comment on above: Performed By: #### C BC #### [facility] [address] [place] [address] Dr. Millie Flores Hemoglobin (Bld) [Mass/Vol] 12.1 g/dL Normal 12.0-16.0 [facility] Comment on above: Performed By: #### C BC #### [facility] [address] [place] [address] Dr. Millie Flores IG # 0.07 10e3/ul Critically high 0.00-0.03 [facility] Comment on above: Performed By: #### C BC #### [facility] [address] [place] [address] Dr. Millie Flores IG % 0.8 % Critically high 0.0-0.5 [facility] Comment on above: Performed By: #### C BC #### [facility] [address] [place] [address] Dr. Millie Flores LYMPH # 2.3 103/ul Normal 1.2-3.8 [facility] Comment on above: Performed By: #### C BC #### [facility] [address] [place] [address] Dr. Millie Flores Lymphocytes/100 WBC (Bld) 26.8 % Normal 20.5-60.0 [facility] Comment on above: Performed By: #### C BC #### [facility] [address] [place] [address] Dr. Millie Flores MANUAL DIFF REQ NO Normal [facility] Comment on above: Performed By: #### C BC #### [facility] [address] [place] [address] Dr. Millie Flores MCH (RBC) [Entitic mass] 30.7 pg Normal 26.7-34.0 [facility] Comment on above: Performed By: #### C BC #### [facility] [address] [place] [address] Dr. Millie Flores MCHC (RBC) [Mass/Vol] 31.8 g/dL Normal 29.9-35.2 [facility] Comment on above: Performed By: #### C BC #### [facility] [address] [place] [address] Dr. Millie Flores MCV (RBC) [Entitic vol] 96.7 fL Normal 81.0-99.0 [facility] Comment on above: Performed By: #### C BC #### [facility] [address] [place] [address] Dr. Millie Flores MONO # 0.9 103/ul Critically high 0.3-0.8 [facility] Comment on above: Performed By: #### C BC #### [facility] [address] [place] [address] Dr. Millie Flores Monocytes/100 WBC (Bld) 11.4 % Normal 1.7-12.0 [facility] Comment on above: Performed By: #### C BC #### [facility] [address] [place] [address] Dr. Millie Flores NEUT # 5.1 103/ul Normal 1.4-6.5 [facility] Comment on above: Performed By: #### C BC #### [facility] [address] [place] [address] Dr. Millie Flores Neutrophils/100 WBC (Bld) 59.5 % Normal 43.0-75.0 [facility] Comment on above: Performed By: #### C BC #### [facility] [address] [place] [address] Dr. Millie Flores Platelet mean volume (Bld) [Entitic vol] 9.5 fL Normal 9.5-13.5 [facility] Comment on above: Performed By: #### C BC #### [facility] [address] [place] [address] Dr. Millie Flores PLT 239 103/ul Normal 150-450 [facility] Comment on above: Performed By: #### C BC #### [facility] [address] [place] [address] Dr. Millie Flores RBC 3.94 106/ul Critically low 4.20-5.40 [facility] Comment on above: Performed By: #### C BC #### [facility] [address] [place] [address] Dr. Millie Flores WBC 8.7 103/ul Normal 4.0-11.0 [facility] Comment on above: Performed By: #### C BC #### [facility] [address] [place] [address] Dr. Millie Flores PROF 14(COMP METB)on 021 Albumin [Mass/Vol] 3.4 g/dL Critically low 3.5-5.0 [facility] Comment on above: Performed By: #### C ALINE HSTROPN #### [facility] [address] [place] [address] Dr. Millie Flores Albumin/Globulin [Mass ratio] 1.0 {ratio} Normal [facility] Comment on above: Performed By: #### C ALINE HSTROPN #### [facility] [address] [place] [address] Dr. Millie Flores ALP [Catalytic activity/Vol] 77 U/L Normal 38-126 [facility] Comment on above: Performed By: #### C ALINE HSTROPN #### [facility] [address] [place] [address] Dr. Millie Flores ALT [Catalytic activity/Vol] 17 U/L Normal 9-52 [facility] Comment on above: Performed By: #### C ALINE HSTROPN #### [facility] [address] [place] [address] Dr. Millie Flores Anion gap [Moles/Vol] 13.1 mmol/L Normal [facility] Comment on above: Performed By: #### C MP, HSTROPN #### [facility] [address] [address] [address] Millie Flores AST [Catalytic activity/Vol] 19 U/L Normal 14-36 [facility] Comment on above: Performed By: #### C MP, HSTROPN #### [facility] [address] [address] [address] Millie Flores Bilirubin [Mass/Vol] 0.2 mg/dL Normal 0.2-1.3 [facility] Comment on above: Performed By: #### C MP, HSTROPN #### [facility] [address] [place] [address] Dr. Millie Flores Calcium [Mass/Vol] 9.2 mg/dL Normal 8.4-10.2 [facility] Comment on above: Performed By: #### C MP, HSTROPN #### [facility] [address] [address] [address] Millie Flores Chloride [Moles/Vol] 101 mmol/L Normal 98-107 [facility] Comment on above: Performed By: #### C MP, HSTROPN #### [facility] [address] [address] [address] Millie Flores CO2 [Moles/Vol] 26.3 mmol/L Normal 22.0-30.0 [facility] Comment on above: Performed By: #### C MP, HSTROPN #### [facility] [address] [address] [address] Millie Flores Creatinine [Mass/Vol] 0.99 mg/dL Normal 0.52-1.04 [facility] Comment on above: Performed By: #### C MP, HSTROPN #### [facility] [address] [address] [address] Millie Flores EGFR-AF YEMENI >60 Normal >=60 [facility] Comment on above: Performed By: #### C MP, HSTROPN #### [facility] [address] [address] [address] Millie Flores EGFR-NON AF YEMENI 55 mL/min/1.73m2 Critically low >=60 [facility] Comment on above: Performed By: #### C MP, HSTROPN #### [facility] [address] [place] [address] Dr. Millie Flores Globulin (S) [Mass/Vol] 3.8 g/dL Normal [facility] Comment on above: Performed By: #### C MP, HSTROPN #### [facility] [address] [place] [address] Dr. Millie Flores Glucose [Mass/Vol] 111 mg/dL Critically high 74-106 [facility] Comment on above: Performed By: #### C MP, HSTROPN #### [facility] [address] [place] [address] Dr. Millie Flores Potassium [Moles/Vol] 3.4 mmol/L Normal 3.4-5.0 [facility] Comment on above: Performed By: #### C MP, HSTROPN #### [facility] [address] [place] [address] Dr. Millie Flores Protein [Mass/Vol] 7.2 g/dL Normal 6.1-8.2 [facility] Comment on above: Performed By: #### C MP, HSTROPN #### [facility] [address] [place] [address] Dr. Millie Flores Sodium [Moles/Vol] 137 mmol/L Normal 137-145 [facility] Comment on above: Performed By: #### C MP, HSTROPN #### [facility] [address] [place] [address] Dr. Millie Flores Urea nitrogen [Mass/Vol] 12.0 mg/dL Normal 7.0-17.0 [facility] Comment on above: Performed By: #### C MP, HSTROPN #### [facility] [address] [place] [address] Dr. Millie Flores Urea nitrogen/Creatinine [Mass ratio] 12.1 mg/mg Normal [facility] Comment on above: Performed By: #### C ALINE, HSTROPN #### [facility] [address] [address] [address] Millie Flores TROPONIN, HIGH SENSITIVITYon 08-30-2021 HSTROP 6.2 pg/mL Normal 4.0-35.5 [facility] Comment on above: Result Comment: CUT- OFF POINTS HAVE BEEN ESTABLISHED BASED ON THE FOURTH UNIVERSAL DEFINITIONS OF MYOCARDIAL INFARCTION. THE UPPER REFERENCE LIMIT (URL) OF TROPONIN, DEFINED THE 99TH PERCENTILE OF cTnI DISTRIBUTION IN A REFERENCE POPULATION, HAS BEEN CONFIRMED THE DECISION THRESHOLD FOR DC DIAGNOSIS. Performed By: #### C ALINE, HSTROPN #### [facility] [address] [address] [address] Millie Flores XR CHEST 1 Von [...] ALVIN MONZON Date: 2021-08-30 05:42 Normal [facility] Complete Blood Count Auto Di ffon 08-09-2021 Basophils (Bld) [#/Vol] 0.0 10*3/uL Normal 0.0-0.2 [facility] Comment on above: Result Comment: PERF ORMED BY: [place] [address] PATHOLOGIST SALES CORRESPONDENCE CLERK ROBYN CASAS M.D. Performed By: #### C BC, LIPASE, LACTIC, CMP #### [facility] [address] [place] [address] Basophils/100 WBC (Bld) 0.3 % Normal . [facility] Comment on above: Performed By: #### C BC, LIPASE, LACTIC, CMP #### [facility] [address] [place] [address] Eosinophils (Bld) [#/Vol] 0.3 10*3/uL Normal 0.0-0.45 [facility] Comment on above: Performed By: #### C BC, LIPASE, LACTIC, CMP #### [address] Eosinophils/100 WBC (Bld) 2.8 % Normal . [facility] Comment on above: Performed By: #### C BC, LIPASE, LACTIC, CMP #### [address] Erythrocyte distribution width (RBC) [Ratio] 14.4 % Normal 11.9-15.3 [facility] Comment on above: Performed By: #### C BC, LIPASE, LACTIC, CMP #### [address] Hematocrit (Bld) [Volume fraction] 32.7 % Low 34.0-46.4 [facility] Comment on above: Performed By: #### C BC, LIPASE, LACTIC, CMP #### [address] Hemoglobin (Bld) [Mass/Vol] 11.0 g/dL Low 11.8-15.4 [facility] Comment on above: Performed By: #### C BC, LIPASE, LACTIC, CMP #### [address] Lymphocytes (Bld) [#/Vol] 1.3 10*3/uL Normal 1.00-4.8 [facility] Comment on above: Performed By: #### C BC, LIPASE, LACTIC, CMP #### [address] Lymphocytes/100 WBC (Bld) 14.0 % Normal . [facility] Comment on above: Performed By: #### C BC, LIPASE, LACTIC, CMP #### [address] MCH (RBC) [Entitic mass] 31.6 pg Normal 24.7-34.3 [facility] Comment on above: Performed By: #### C BC, LIPASE, LACTIC, CMP #### [facility] [address] MCV (RBC) [Entitic vol] 94.0 fL Normal 80-100 [facility] Comment on above: Performed By: #### C BC, LIPASE, LACTIC, CMP #### [address] Mean Corpuscular HGB Conc 33.6 g/dL Normal 32.0-35.0 [facility] Comment on above: Performed By: #### C BC, LIPASE, LACTIC, CMP #### [address] Monocytes (Bld) [#/Vol] 1.3 10*3/uL High 0.0-0.8 [facility] Comment on above: Performed By: #### C BC, LIPASE, LACTIC, CMP #### [address] Monocytes/100 WBC (Bld) 13.7 % Normal . [facility] Comment on above: Performed By: #### C BC, LIPASE, LACTIC, CMP #### [address] Neutrophils (Bld) [#/Vol] 6.5 10*3/uL Normal 1.8-7.7 [facility] Comment on above: Performed By: #### C BC, LIPASE, LACTIC, CMP #### [address] Neutrophils/100 WBC (Bld) 69.2 % Normal . [facility] Comment on above: Performed By: #### C BC, LIPASE, LACTIC, CMP #### [place] [address] [place] Nucleated RBC/100 WBC (Bld) [Ratio] 0.1 % Normal 0-0.5 [facility] Comment on above: Performed By: #### C BC, LIPASE, LACTIC, CMP #### [address] Platelet mean volume (Bld) [Entitic vol] 7.1 fL Normal 6.3-10.7 [facility] Comment on above: Performed By: #### C BC, LIPASE, LACTIC, CMP #### [facility] [address] [place] [address] Platelets (Bld) [#/Vol] 179 10*3/uL Normal 150-450 [facility] Comment on above: Performed By: #### C BC, LIPASE, LACTIC, CMP #### [address] RBC (Bld) [#/Vol] 3.48 10*6/uL Low 3.60-5.00 [facility] Comment on above: Performed By: #### C BC, LIPASE, LACTIC, CMP #### [address] WBC (Bld) [#/Vol] 9.3 10*3/uL Normal 4.5-11.0 [facility] Comment on above: Performed By: #### C BC, LIPASE, LACTIC, CMP #### [address] Comprehensive Metabolic Pane lizy 08-09-2021 Albumin [Mass/Vol] 2.4 g/dL Low 3.2-5.5 [facility] Comment on above: Performed By: #### C BC, LIPASE, LACTIC, CMP #### [address] Albumin/Globulin [Mass ratio] 0.9 {ratio} Normal [facility] Comment on above: Performed By: #### C BC, LIPASE, LACTIC, CMP #### [address] ALP [Catalytic activity/Vol] 53 U/L Normal 32-92 [facility] Comment on above: Performed By: #### C BC, LIPASE, LACTIC, CMP #### [address] ALT [Catalytic activity/Vol] 15 U/L Normal 10-60 [facility] Comment on above: Performed By: #### C BC, LIPASE, LACTIC, CMP #### [facility] [address] AST [Catalytic activity/Vol] 20 U/L Normal 10-42 [facility] Comment on above: Performed By: #### C BC, LIPASE, LACTIC, CMP #### [facility] [address] Bilirubin [Mass/Vol] 0.4 mg/dL Normal 0.3-1.2 [facility] Comment on above: Performed By: #### C BC, LIPASE, LACTIC, CMP #### [address] Calcium [Mass/Vol] 8.1 mg/dL Low 8.2-10.2 [facility] Comment on above: Performed By: #### C BC, LIPASE, LACTIC, CMP #### [address] Chloride [Moles/Vol] 102 mmol/L Normal 95-114 [facility] Comment on above: Performed By: #### C BC, LIPASE, LACTIC, CMP #### [address] CO2 [Moles/Vol] 29.7 mmol/L Normal 22.0-30.0 [facility] Comment on above: Performed By: #### C BC, LIPASE, LACTIC, CMP #### [address] Creatinine [Mass/Vol] 0.57 mg/dL Normal 0.44-1.03 [facility] Comment on above: Performed By: #### C BC, LIPASE, LACTIC, CMP #### [address] Creatinine Clr Calc Pharmacy 73.94 Normal [facility] Comment on above: Result Comment: PERF ORMED BY: [place] [address] PATHOLOGIST SALES CORRESPONDENCE CLERK ROBYN CASAS M.D. Performed By: #### C BC, LIPASE, LACTIC, CMP #### [address] Estimated GFR ( Joey > 60 Normal [facility] Comment on above: Result Comment: GFR estimated reference range: According to KDOQI guidelines, <60 ml/min/1.73m2 is sufficient to diagnose a patient with chronic kidney disease. Performed By: #### C BC, LIPASE, LACTIC, CMP #### [address] Estimated GFR (Non- Am > 60 Normal [facility] Comment on above: Performed By: #### C BC, LIPASE, LACTIC, CMP #### [address] Globulin (S) [Mass/Vol] 2.6 g/dL [facility] Comment on above: Performed By: #### C BC, LIPASE, LACTIC, CMP #### [address] Glucose [Mass/Vol] 104 mg/dL High 70-100 [facility] Comment on above: Result Comment: [place] Glucose Reference Range is dependent on time and content of last meal. Glucose of more than 200 mg/dL in a nonstressed, ambulatory subject supports the diagnosis of Diabetes Mellitus. ADA recommended reference range Performed By: #### C BC, LIPASE, LACTIC, CMP #### [address] Potassium [Moles/Vol] 3.4 mmol/L Low 3.5-5.1 [facility] Comment on above: Performed By: #### C BC, LIPASE, LACTIC, CMP #### [address] Protein [Mass/Vol] 5.0 g/dL Low 6.1-7.9 [facility] Comment on above: Performed By: #### C BC, LIPASE, LACTIC, CMP #### [address] Sodium [Moles/Vol] 140 mmol/L Normal 136-146 [facility] Comment on above: Performed By: #### C BC, LIPASE, LACTIC, CMP #### [address] Urea nitrogen [Mass/Vol] 9 mg/dL Normal 06-15 [facility] Comment on above: Performed By: #### C BC, LIPASE, LACTIC, CMP #### [address] Glucose Poct Glucometerson 1 10-09-2020 Glucose [Mass/Vol] 108 mg/dL Normal [facility] Comment on above: Result Comment: [place] om Glucose Reference Range is dependent on time and content of last meal. Glucose of more than 200 mg/dL in a nonstressed, ambulatory subject supports the diagnosis of Diabetes Mellitus. PERFORMED BY: [place] [address] PATHOLOGIST SALES CORRESPONDENCE CLERK ROBYN CASAS M.D. Performed By: #### C BC, LIPASE, LACTIC, CMP #### [address] Glucose [Mass/Vol] 87 mg/dL Normal [facility] Comment on above: Result Comment: [place] om Glucose Reference Range is dependent on time and content of last meal. Glucose of more than 200 mg/dL in a nonstressed, ambulatory subject supports the diagnosis of Diabetes Mellitus. PERFORMED BY: [place] [address] PATHOLOGIST SALES CORRESPONDENCE CLERK ROYBN CASAS M.D. Performed By: #### C BC, LIPASE, LACTIC, CMP #### [address] Glucose [Mass/Vol] 102 mg/dL Normal [facility] Comment on above: Result Comment: [place] om Glucose Reference Range is dependent on time and content of last meal. Glucose of more than 200 mg/dL in a nonstressed, ambulatory subject supports the diagnosis of Diabetes Mellitus. PERFORMED BY: [place] [address] PATHOLOGIST SALES CORRESPONDENCE CLERK ROBYN CASAS M.D. Performed By: #### C BC, LIPASE, LACTIC, CMP #### [address] Complete Blood Count Auto Di ffon 08-08-2021 Basophils (Bld) [#/Vol] 0.0 10*3/uL Normal 0.0-0.2 [facility] Comment on above: Result Comment: PERF ORMED BY: [place] [address] PATHOLOGIST SALES CORRESPONDENCE CLERK ROBYN CASAS M.D. Performed By: #### C BC, LIPASE, LACTIC, CMP #### [address] Basophils/100 WBC (Bld) 0.2 % Normal . [facility] Comment on above: Performed By: #### C BC, LIPASE, LACTIC, CMP #### [address] Eosinophils (Bld) [#/Vol] 0.2 10*3/uL Normal 0.0-0.45 [facility] Comment on above: Performed By: #### C BC, LIPASE, LACTIC, CMP #### [address] Eosinophils/100 WBC (Bld) 2.2 % Normal . [facility] Comment on above: Performed By: #### C BC, LIPASE, LACTIC, CMP #### [address] Erythrocyte distribution width (RBC) [Ratio] 14.0 % Normal 11.9-15.3 [facility] Comment on above: Performed By: #### C BC, LIPASE, LACTIC, CMP #### [address] Hematocrit (Bld) [Volume fraction] 31.5 % Low 34.0-46.4 [facility] Comment on above: Performed By: #### C BC, LIPASE, LACTIC, CMP #### [address] Hemoglobin (Bld) [Mass/Vol] 10.6 g/dL Low 11.8-15.4 [facility] Comment on above: Performed By: #### C BC, LIPASE, LACTIC, CMP #### [address] Lymphocytes (Bld) [#/Vol] 1.1 10*3/uL Normal 1.00-4.8 [facility] Comment on above: Performed By: #### C BC, LIPASE, LACTIC, CMP #### [address] Lymphocytes/100 WBC (Bld) 11.8 % Normal . [facility] Comment on above: Performed By: #### C BC, LIPASE, LACTIC, CMP #### [address] MCH (RBC) [Entitic mass] 31.7 pg Normal 24.7-34.3 [facility] Comment on above: Performed By: #### C BC, LIPASE, LACTIC, CMP #### [address] MCV (RBC) [Entitic vol] 94.3 fL Normal 80-100 [facility] Comment on above: Performed By: #### C BC, LIPASE, LACTIC, CMP #### [address] Mean Corpuscular HGB Conc 33.6 g/dL Normal 32.0-35.0 [facility] Comment on above: Performed By: #### C BC, LIPASE, LACTIC, CMP #### [address] Monocytes (Bld) [#/Vol] 1.1 10*3/uL High 0.0-0.8 [facility] Comment on above: Performed By: #### C BC, LIPASE, LACTIC, CMP #### [place] [address] [place] Monocytes/100 WBC (Bld) 11.6 % Normal . [facility] Comment on above: Performed By: #### C BC, LIPASE, LACTIC, CMP #### [address] Neutrophils (Bld) [#/Vol] 6.8 10*3/uL Normal 1.8-7.7 [facility] Comment on above: Performed By: #### C BC, LIPASE, LACTIC, CMP #### [address] Neutrophils/100 WBC (Bld) 74.2 % Normal . [facility] Comment on above: Performed By: #### C BC, LIPASE, LACTIC, CMP #### [address] Nucleated RBC/100 WBC (Bld) [Ratio] 0.0 % Normal 0-0.5 [facility] Comment on above: Performed By: #### C BC, LIPASE, LACTIC, CMP #### [address] Platelet mean volume (Bld) [Entitic vol] 7.1 fL Normal 6.3-10.7 [facility] Comment on above: Performed By: #### C BC, LIPASE, LACTIC, CMP #### [address] Platelets (Bld) [#/Vol] 173 10*3/uL Normal 150-450 [facility] Comment on above: Performed By: #### C BC, LIPASE, LACTIC, CMP #### [address] RBC (Bld) [#/Vol] 3.34 10*6/uL Low 3.60-5.00 [facility] Comment on above: Performed By: #### C BC, LIPASE, LACTIC, CMP #### [address] WBC (Bld) [#/Vol] 9.2 10*3/uL Normal 4.5-11.0 [facility] Comment on above: Performed By: #### C BC, LIPASE, LACTIC, CMP #### [address] Comprehensive Metabolic Pane lizy 08-08-2021 Albumin [Mass/Vol] 2.2 g/dL Low 3.2-5.5 [facility] Comment on above: Performed By: #### C BC, LIPASE, LACTIC, CMP #### [facility] [address] Albumin/Globulin [Mass ratio] 0.9 {ratio} Normal [facility] Comment on above: Performed By: #### C BC, LIPASE, LACTIC, CMP #### [facility] [address] ALP [Catalytic activity/Vol] 43 U/L Normal 32-92 [facility] Comment on above: Performed By: #### C BC, LIPASE, LACTIC, CMP #### [facility] [address] ALT [Catalytic activity/Vol] 16 U/L Normal 10-60 [facility] Comment on above: Performed By: #### C BC, LIPASE, LACTIC, CMP #### [facility] [address] AST [Catalytic activity/Vol] 18 U/L Normal 10-42 [facility] Comment on above: Performed By: #### C BC, LIPASE, LACTIC, CMP #### [facility] [address] Bilirubin [Mass/Vol] 0.4 mg/dL Normal 0.3-1.2 [facility] Comment on above: Performed By: #### C BC, LIPASE, LACTIC, CMP #### [facility] [address] [place] [address] Calcium [Mass/Vol] 8.1 mg/dL Low 8.2-10.2 [facility] Comment on above: Performed By: #### C BC, LIPASE, LACTIC, CMP #### [facility] [address] [place] [address] [place] Chloride [Moles/Vol] 102 mmol/L Normal 95-114 [facility] Comment on above: Performed By: #### C BC, LIPASE, LACTIC, CMP #### [facility] [address] CO2 [Moles/Vol] 29.1 mmol/L Normal 22.0-30.0 [facility] Comment on above: Performed By: #### C BC, LIPASE, LACTIC, CMP #### [address] Creatinine [Mass/Vol] 0.51 mg/dL Normal 0.44-1.03 [facility] Comment on above: Performed By: #### C BC, LIPASE, LACTIC, CMP #### [address] Creatinine Clr Calc Pharmacy 72.99 [facility] Comment on above: Performed By: #### C BC, LIPASE, LACTIC, CMP #### [address] Estimated GFR ( Joey > 60 [facility] Comment on above: Result Comment: GFR estimated reference range: According to KDOQI guidelines, <60 ml/min/1.73m2 is sufficient to diagnose a patient with chronic kidney disease. Performed By: #### C BC, LIPASE, LACTIC, CMP #### [address] Estimated GFR (Non- Am > 60 Normal [facility] Comment on above: Performed By: #### C BC, LIPASE, LACTIC, CMP #### [address] Globulin (S) [Mass/Vol] 2.5 g/dL [facility] Comment on above: Performed By: #### C BC, LIPASE, LACTIC, CMP #### [address] Glucose [Mass/Vol] 149 mg/dL High 70-100 [facility] Comment on above: Result Comment: [place] Glucose Reference Range is dependent on time and content of last meal. Glucose of more than 200 mg/dL in a nonstressed, ambulatory subject supports the diagnosis of Diabetes Mellitus. ADA recommended reference range Performed By: #### C BC, LIPASE, LACTIC, CMP #### [address] Potassium [Moles/Vol] 3.6 mmol/L Normal 3.5-5.1 [facility] Comment on above: Performed By: #### C BC, LIPASE, LACTIC, CMP #### [facility] [address] Protein [Mass/Vol] 4.7 g/dL Low 6.1-7.9 [facility] Comment on above: Performed By: #### C BC, LIPASE, LACTIC, CMP #### [facility] [address] Sodium [Moles/Vol] 140 mmol/L Normal 136-146 [facility] Comment on above: Performed By: #### C BC, LIPASE, LACTIC, CMP #### [facility] [address] Urea nitrogen [Mass/Vol] 10 mg/dL Normal 9-23 [facility] Comment on above: Performed By: #### C BC, LIPASE, LACTIC, CMP #### [facility] [address] Glucose Poct Glucometerson 1 2020 Glucose [Mass/Vol] 102 mg/dL Normal [facility] Comment on above: Result Comment: [place] Glucose Reference Range is dependent on time and content of last meal. Glucose of more than 200 mg/dL in a nonstressed, ambulatory subject supports the diagnosis of Diabetes Mellitus. PERFORMED BY: [place] [address] PATHOLOGIST SALES CORRESPONDENCE CLERK ROBYN CASAS M.D. Performed By: #### C BC, LIPASE, LACTIC, CMP #### [facility] [address] [place] [address] Commemt1 Glu2: Cleaned Meter Normal [facility] Comment on above: Result Comment: PERF ORMED BY: [place] [address] PATHOLOGIST SALES CORRESPONDENCE CLERK ROBYN CASAS M.D. Performed By: #### C BC, LIPASE, LACTIC, CMP #### [facility] [address] Glucose [Mass/Vol] 123 mg/dL Normal [facility] Comment on above: Result Comment: [place] om Glucose Reference Range is dependent on time and content of last meal. Glucose of more than 200 mg/dL in a nonstressed, ambulatory subject supports the diagnosis of Diabetes Mellitus. Performed By: #### C BC, LIPASE, LACTIC, CMP #### [address] Commemt1 Glu2: Cleaned Meter Normal [facility] Comment on above: Result Comment: PERF ORMED BY: [place] [address] PATHOLOGIST SALES CORRESPONDENCE CLERK ROBYN CASAS M.D. Performed By: #### C BC, LIPASE, LACTIC, CMP #### [address] Glucose [Mass/Vol] 125 mg/dL Normal [facility] Comment on above: Result Comment: [place] om Glucose Reference Range is dependent on time and content of last meal. Glucose of more than 200 mg/dL in a nonstressed, ambulatory subject supports the diagnosis of Diabetes Mellitus. Performed By: #### C BC, LIPASE, LACTIC, CMP #### [address] Commemt1 Glu2: Cleaned Meter [facility] Comment on above: Result Comment: PERF ORMED BY: [place] [address] PATHOLOGIST SALES CORRESPONDENCE CLERK ROBYN CASAS M.D. Performed By: #### C BC, LIPASE, LACTIC, CMP #### [address] Glucose [Mass/Vol] 141 mg/dL Normal [facility] Comment on above: Result Comment: [place] om Glucose Reference Range is dependent on time and content of last meal. Glucose of more than 200 mg/dL in a nonstressed, ambulatory subject supports the diagnosis of Diabetes Mellitus. Performed By: #### C BC, LIPASE, LACTIC, CMP #### [address] Ironon 08-08-2021 Iron [Mass/Vol] 15 ug/dL Low 40-150 [facility] Comment on above: Performed By: #### C BC, LIPASE, LACTIC, CMP #### [facility] [address] Magnesiumon 08-08-2021 Magnesium [Mass/Vol] 2.0 mg/dL Normal 1.6-2.6 [facility] Comment on above: Performed By: #### C BC, LIPASE, LACTIC, CMP #### [address] Phosphoruson 08-08-2021 Phosphate [Mass/Vol] 3.2 mg/dL Normal 2.5-4.6 [facility] Comment on above: Performed By: #### C BC, LIPASE, LACTIC, CMP #### [address] Total Iron Binding Capacityo n 08-08-2021 Total Iron Binding Capacity 162 ug/dL Low 255-450 [facility] Comment on above: Performed By: #### C BC, LIPASE, LACTIC, CMP #### [address] Transferrin [Mass/Vol] 116 mg/dL Low 180-380 [facility] Comment on above: Performed By: #### C BC, LIPASE, LACTIC, CMP #### [address] Vit. B12/Folate Profileon Cobalamin (Vitamin B12) [Mass/Vol] 1000 pg/mL High 180-914 [facility] Comment on above: Performed By: #### C BC, LIPASE, LACTIC, CMP #### [address] Folate 16.3 ng/mL Normal >5.9 [facility] Comment on above: Result Comment: [place] te reference range: >5.9 ng/ml The WHO technical consultation on folate and vitamin b12 deficiencies has determined that folate concentrations less than 4 ng/ml are considered deficient. PERFORMED BY: [place] [address] PATHOLOGIST SALES CORRESPONDENCE CLERK ROBYN CASAS M.D. Performed By: #### C BC, LIPASE, LACTIC, CMP #### [facility] [address] Basic Metabolic Panelon 11- Calcium [Mass/Vol] 7.9 mg/dL Low 8.2-10.2 [facility] Comment on above: Performed By: #### C BC, LIPASE, LACTIC, CMP #### [facility] [address] Chloride [Moles/Vol] 105 mmol/L Normal 95-114 [facility] Comment on above: Performed By: #### C BC, LIPASE, LACTIC, CMP #### [address] CO2 [Moles/Vol] 27.9 mmol/L Normal 22.0-30.0 [facility] Comment on above: Performed By: #### C BC, LIPASE, LACTIC, CMP #### [address] Creatinine [Mass/Vol] 0.50 mg/dL Normal 0.44-1.03 [facility] Comment on above: Performed By: #### C BC, LIPASE, LACTIC, CMP #### [address] Creatinine Clr Calc Pharmacy 72.99 [facility] Comment on above: Performed By: #### C BC, LIPASE, LACTIC, CMP #### [address] Estimated GFR ( Joey > 60 [facility] Comment on above: Result Comment: GFR estimated reference range: According to KDOQI guidelines, <60 ml/min/1.73m2 is sufficient to diagnose a patient with chronic kidney disease. Performed By: #### C BC, LIPASE, LACTIC, CMP #### [address] Estimated GFR (Non- Am > 60 [facility] Comment on above: Performed By: #### C BC, LIPASE, LACTIC, CMP #### [address] Glucose [Mass/Vol] 135 mg/dL High 70-100 [facility] Comment on above: Result Comment: [place] Glucose Reference Range is dependent on time and content of last meal. Glucose of more than 200 mg/dL in a nonstressed, ambulatory subject supports the diagnosis of Diabetes Mellitus. ADA recommended reference range Performed By: #### C BC, LIPASE, LACTIC, CMP #### [facility] [address] Potassium [Moles/Vol] 3.5 mmol/L Normal 3.5-5.1 [facility] Comment on above: Performed By: #### C BC, LIPASE, LACTIC, CMP #### [facility] [address] Sodium [Moles/Vol] 140 mmol/L Normal 136-146 [facility] Comment on above: Performed By: #### C BC, LIPASE, LACTIC, CMP #### [address] Urea nitrogen [Mass/Vol] 10 mg/dL Normal 9-23 [facility] Comment on above: Performed By: #### C BC, LIPASE, LACTIC, CMP #### [address] Complete Blood Count Auto Di ffon 08-07-2021 Basophils (Bld) [#/Vol] 0.0 10*3/uL Normal 0.0-0.2 [facility] Comment on above: Result Comment: PERF ORMED BY: [place] [address] PATHOLOGIST SALES CORRESPONDENCE CLERK ROBYN CASAS M.D. Performed By: #### C BC, LIPASE, LACTIC, CMP #### [facility] [address] [place] [address] [place] Basophils/100 WBC (Bld) 0.4 % Normal . [facility] Comment on above: Performed By: #### C BC, LIPASE, LACTIC, CMP #### [facility] [address] Eosinophils (Bld) [#/Vol] 0.1 10*3/uL Normal 0.0-0.45 [facility] Comment on above: Performed By: #### C BC, LIPASE, LACTIC, CMP #### [address] Eosinophils/100 WBC (Bld) 1.4 % Normal . [facility] Comment on above: Performed By: #### C BC, LIPASE, LACTIC, CMP #### [address] Erythrocyte distribution width (RBC) [Ratio] 14.3 % Normal 11.9-15.3 [facility] Comment on above: Performed By: #### C BC, LIPASE, LACTIC, CMP #### [address] Hematocrit (Bld) [Volume fraction] 31.9 % Low 34.0-46.4 [facility] Comment on above: Performed By: #### C BC, LIPASE, LACTIC, CMP #### [address] Hemoglobin (Bld) [Mass/Vol] 10.8 g/dL Low 11.8-15.4 [facility] Comment on above: Performed By: #### C BC, LIPASE, LACTIC, CMP #### [address] Lymphocytes (Bld) [#/Vol] 1.2 10*3/uL Normal 1.00-4.8 [facility] Comment on above: Performed By: #### C BC, LIPASE, LACTIC, CMP #### [address] Lymphocytes/100 WBC (Bld) 11.7 % Normal . [facility] Comment on above: Performed By: #### C BC, LIPASE, LACTIC, CMP #### [address] MCH (RBC) [Entitic mass] 31.7 pg Normal 24.7-34.3 [facility] Comment on above: Performed By: #### C BC, LIPASE, LACTIC, CMP #### [address] MCV (RBC) [Entitic vol] 94.3 fL Normal 80-100 [facility] Comment on above: Performed By: #### C BC, LIPASE, LACTIC, CMP #### [address] Mean Corpuscular HGB Conc 33.7 g/dL Normal 32.0-35.0 [facility] Comment on above: Performed By: #### C BC, LIPASE, LACTIC, CMP #### [address] Monocytes (Bld) [#/Vol] 1.3 10*3/uL High 0.0-0.8 [facility] Comment on above: Performed By: #### C BC, LIPASE, LACTIC, CMP #### [address] Monocytes/100 WBC (Bld) 12.8 % Normal . [facility] Comment on above: Performed By: #### C BC, LIPASE, LACTIC, CMP #### [address] Neutrophils (Bld) [#/Vol] 7.8 10*3/uL High 1.8-7.7 [facility] Comment on above: Performed By: #### C BC, LIPASE, LACTIC, CMP #### [address] Neutrophils/100 WBC (Bld) 73.7 % Normal . [facility] Comment on above: Performed By: #### C BC, LIPASE, LACTIC, CMP #### [place] [address] [place] Nucleated RBC/100 WBC (Bld) [Ratio] 0.0 % Normal 0-0.5 [facility] Comment on above: Performed By: #### C BC, LIPASE, LACTIC, CMP #### [address] Platelet mean volume (Bld) [Entitic vol] 7.1 fL Normal 6.3-10.7 [facility] Comment on above: Performed By: #### C BC, LIPASE, LACTIC, CMP #### [facility] [address] Platelets (Bld) [#/Vol] 177 10*3/uL Normal 150-450 [facility] Comment on above: Performed By: #### C BC, LIPASE, LACTIC, CMP #### [facility] [address] RBC (Bld) [#/Vol] 3.39 10*6/uL Low 3.60-5.00 [facility] Comment on above: Performed By: #### C BC, LIPASE, LACTIC, CMP #### [facility] [address] WBC (Bld) [#/Vol] 10.5 10*3/uL Normal 4.5-11.0 [facility] Comment on above: Performed By: #### C BC, LIPASE, LACTIC, CMP #### [facility] [address] ECH echo transthoracicon [facility] echo transthoracic [facility] Main [place] [address] [place] [address] Echocardiogram Signed Patient: Areli Hawkins MR#: [id number] : 1945 Acct:[id number] Age/Sex: 75 / F ADM Date: 08/01/21 Loc: Room: [address] [place] [address] Type: ADM IN Attending Dr: Tony Klein DO Ordering Provider: Leora Hendricks MD Date of Service: 08/07/21 [facility] echo transthoracic: Change in heart rhythm Copies [...] 1430 Dictated By: Yaritza Canchola DO 08/07/21 2178 Signed By: 08/07/21 8795 [facility] Free T4 (Free Thyroxine)on 10-07-2020 Free T4 [Mass/Vol] 1.02 ng/dL Normal 0.61-1.12 [facility] Comment on above: Performed By: #### C BC, LIPASE, LACTIC, CMP #### [facility] [address] [place] [id number] [facility] Glucose Poct Glucometerson 1 10-07-2020 Commemt1 Glu2: Cleaned Meter [facility] Comment on above: Result Comment: PERF ORMED BY: [place] [address] PATHOLOGIST SALES CORRESPONDENCE CLERK ROBYN CASAS M.D. Performed By: #### C BC, LIPASE, LACTIC, CMP #### [address] Glucose [Mass/Vol] 104 mg/dL Normal [facility] Comment on above: Result Comment: [place] om Glucose Reference Range is dependent on time and content of last meal. Glucose of more than 200 mg/dL in a nonstressed, ambulatory subject supports the diagnosis of Diabetes Mellitus. Performed By: #### C BC, LIPASE, LACTIC, CMP #### [address] Glucose [Mass/Vol] 125 mg/dL Normal [facility] Comment on above: Result Comment: [place] om Glucose Reference Range is dependent on time and content of last meal. Glucose of more than 200 mg/dL in a nonstressed, ambulatory subject supports the diagnosis of Diabetes Mellitus. Performed By: #### C BC, LIPASE, LACTIC, CMP #### [address] Commemt1 Glu2: Cleaned Meter [facility] Comment on above: Result Comment: PERF ORMED BY: [place] [address] PATHOLOGIST SALES CORRESPONDENCE CLERK ROBYN CASAS M.D. Performed By: #### C BC, LIPASE, LACTIC, CMP #### [address] Glucose [Mass/Vol] 109 mg/dL Normal [facility] Comment on above: Result Comment: [place] om Glucose Reference Range is dependent on time and content of last meal. Glucose of more than 200 mg/dL in a nonstressed, ambulatory subject supports the diagnosis of Diabetes Mellitus. Performed By: #### C BC, LIPASE, LACTIC, CMP #### [address] Commemt1 Glu2: Cleaned Meter Normal [facility] Comment on above: Result Comment: PERF ORMED BY: [place] [address] PATHOLOGIST SALES CORRESPONDENCE CLERK ROBYN CASAS M.D. Performed By: #### C BC, LIPASE, LACTIC, CMP #### [address] Glucose [Mass/Vol] 118 mg/dL Normal [facility] Comment on above: Result Comment: [place] om Glucose Reference Range is dependent on time and content of last meal. Glucose of more than 200 mg/dL in a nonstressed, ambulatory subject supports the diagnosis of Diabetes Mellitus. Performed By: #### C BC, LIPASE, LACTIC, CMP #### [address] Commemt1 Glu2: Cleaned Meter Normal [facility] Comment on above: Result Comment: PERF ORMED BY: [place] [address] PATHOLOGIST SALES CORRESPONDENCE CLERK ROBYN CASAS M.D. Performed By: #### C BC, LIPASE, LACTIC, CMP #### [address] Glucose [Mass/Vol] 117 mg/dL Normal [facility] Comment on above: Result Comment: [place] om Glucose Reference Range is dependent on time and content of last meal. Glucose of more than 200 mg/dL in a nonstressed, ambulatory subject supports the diagnosis of Diabetes Mellitus. Performed By: #### C BC, LIPASE, LACTIC, CMP #### [address] Magnesiumon 08-07-2021 Magnesium [Mass/Vol] 2.0 mg/dL Normal 1.6-2.6 [facility] Comment on above: Performed By: #### C BC, LIPASE, LACTIC, CMP #### [address] [place] [address] [place] Phosphoruson 08-07-2021 Phosphate [Mass/Vol] 2.9 mg/dL Normal 2.5-4.6 [facility] Comment on above: Performed By: #### C BC, LIPASE, LACTIC, CMP #### [address] Thyroid Stimulating Hormoneo n 08-07-2021 TSH Qn 1.34 m[IU]/L Normal 0.45-5.33 [facility] Comment on above: Result Comment: PERF ORMED BY: [place] [address] PATHOLOGIST SALES CORRESPONDENCE CLERK ROBYN CASAS M.D. Performed By: #### C BC, LIPASE, LACTIC, CMP #### [address] Basic Metabolic Panelon 07-24 Calcium [Mass/Vol] 8.2 mg/dL Normal 8.2-10.2 [facility] Comment on above: Performed By: #### C BC, LIPASE, LACTIC, CMP #### [address] Chloride [Moles/Vol] 110 mmol/L Normal 95-114 [facility] Comment on above: Performed By: #### C BC, LIPASE, LACTIC, CMP #### [address] CO2 [Moles/Vol] 25.8 mmol/L Normal 22.0-30.0 [facility] Comment on above: Performed By: #### C BC, LIPASE, LACTIC, CMP #### [facility] [address] [place] [address] Creatinine [Mass/Vol] 0.55 mg/dL Normal 0.44-1.03 [facility] Comment on above: Performed By: #### C BC, LIPASE, LACTIC, CMP #### [address] Creatinine Clr Calc Pharmacy 72.55 Normal [facility] Comment on above: Performed By: #### C BC, LIPASE, LACTIC, CMP #### [facility] [address] [place] [address] [place] Estimated GFR ( Joey > 60 Normal [facility] Comment on above: Result Comment: GFR estimated reference range: According to KDOQI guidelines, <60 ml/min/1.73m2 is sufficient to diagnose a patient with chronic kidney disease. Performed By: #### C BC, LIPASE, LACTIC, CMP #### [facility] [address] [place] [address] [place] Estimated GFR (Non- Am > 60 Normal [facility] Comment on above: Performed By: #### C BC, LIPASE, LACTIC, CMP #### [facility] [address] Glucose [Mass/Vol] 170 mg/dL High 70-100 [facility] Comment on above: Result Comment: [place] om Glucose Reference Range is dependent on time and content of last meal. Glucose of more than 200 mg/dL in a nonstressed, ambulatory subject supports the diagnosis of Diabetes Mellitus. ADA recommended reference range Performed By: #### C BC, LIPASE, LACTIC, CMP #### [address] Potassium [Moles/Vol] 3.3 mmol/L Low 3.5-5.1 [facility] Comment on above: Performed By: #### C BC, LIPASE, LACTIC, CMP #### [place] [address] [place] Sodium [Moles/Vol] 144 mmol/L Normal 136-146 [facility] Comment on above: Performed By: #### C BC, LIPASE, LACTIC, CMP #### [facility] [address] Urea nitrogen [Mass/Vol] 7 mg/dL Low 9-23 [facility] Comment on above: Performed By: #### C BC, LIPASE, LACTIC, CMP #### [address] ECG 12 lead ECGon 08-06-2021 ECG 12 lead ECG [facility] Main [place] [address] [place] [address] Electrocardiograph Report Signed Patient: Areli Hawkins MR#: [id number] : 1945 Acct:[id number] Age/Sex: 75 / F ADM Date: 08/01/21 Loc: 4N Room: 7Y4696-5 Type: ADM IN Attending Dr: Tony Klein [...] By Alvin Pardo DO 08/07 1313 Normal [facility] Glucose Poct Glucometerson 1 10-06-2020 Glucose [Mass/Vol] 139 mg/dL Normal [facility] Comment on above: Result Comment: [place] Glucose Reference Range is dependent on time and content of last meal. Glucose of more than 200 mg/dL in a nonstressed, ambulatory subject supports the diagnosis of Diabetes Mellitus. PERFORMED BY: [place] [address] PATHOLOGIST SALES CORRESPONDENCE CLERK ROBYN CASAS M.D. Performed By: #### C BC, LIPASE, LACTIC, CMP #### [place] [address] [place] Commemt1 Glu2: Cleaned Meter Normal [facility] Comment on above: Result Comment: PERF ORMED BY: [place] [address] PATHOLOGIST SALES CORRESPONDENCE CLERK JIANLAN SUN M.D. Performed By: #### C BC, LIPASE, LACTIC, CMP #### [address] Glucose [Mass/Vol] 180 mg/dL Normal [facility] Comment on above: Result Comment: [place] om Glucose Reference Range is dependent on time and content of last meal. Glucose of more than 200 mg/dL in a nonstressed, ambulatory subject supports the diagnosis of Diabetes Mellitus. Performed By: #### C BC, LIPASE, LACTIC, CMP #### [address] Commemt1 Glu2: Cleaned Meter Normal [facility] Comment on above: Result Comment: PERF ORMED BY: [place] [address] PATHOLOGIST SALES CORRESPONDENCE CLERK ROBYN CASAS M.D. Performed By: #### C BC, LIPASE, LACTIC, CMP #### [address] Glucose [Mass/Vol] 145 mg/dL Normal [facility] Comment on above: Result Comment: [place] om Glucose Reference Range is dependent on time and content of last meal. Glucose of more than 200 mg/dL in a nonstressed, ambulatory subject supports the diagnosis of Diabetes Mellitus. Performed By: #### C BC, LIPASE, LACTIC, CMP #### [address] Glucose [Mass/Vol] 173 mg/dL Normal [facility] Comment on above: Result Comment: [place] om Glucose Reference Range is dependent on time and content of last meal. Glucose of more than 200 mg/dL in a nonstressed, ambulatory subject supports the diagnosis of Diabetes Mellitus. PERFORMED BY: [place] [address] PATHOLOGIST SALES CORRESPONDENCE CLERK ROBYN CASAS M.D. Performed By: #### C BC, LIPASE, LACTIC, CMP #### [address] Hepatic Panelon 08-06-2021 Albumin [Mass/Vol] 2.3 g/dL Low 3.2-5.5 [facility] Comment on above: Performed By: #### C BC, LIPASE, LACTIC, CMP #### [facility] [address] Albumin/Globulin [Mass ratio] 1.0 {ratio} Normal [facility] Comment on above: Performed By: #### C BC, LIPASE, LACTIC, CMP #### [facility] [address] ALP [Catalytic activity/Vol] 38 U/L Normal 32-92 [facility] Comment on above: Performed By: #### C BC, LIPASE, LACTIC, CMP #### [facility] [address] ALT [Catalytic activity/Vol] 21 U/L Normal 10-60 [facility] Comment on above: Performed By: #### C BC, LIPASE, LACTIC, CMP #### [facility] [address] AST [Catalytic activity/Vol] 21 U/L Normal 10-42 [facility] Comment on above: Performed By: #### C BC, LIPASE, LACTIC, CMP #### [facility] [address] Bilirubin [Mass/Vol] 0.4 mg/dL Normal 0.3-1.2 [facility] Comment on above: Performed By: #### C BC, LIPASE, LACTIC, CMP #### [facility] [address] [place] [address] [place] Bilirubin,Indirect 0.3 mg/dL Normal [facility] Comment on above: Performed By: #### C BC, LIPASE, LACTIC, CMP #### [facility] [address] Bilirubin.indirect [Mass/Vol] 0.1 mg/dL Normal 0.0-0.4 [facility] Comment on above: Performed By: #### C BC, LIPASE, LACTIC, CMP #### [facility] [address] Globulin (S) [Mass/Vol] 2.4 g/dL Normal [facility] Comment on above: Performed By: #### C BC, LIPASE, LACTIC, CMP #### [facility] [address] Protein [Mass/Vol] 4.7 g/dL Low 6.1-7.9 [facility] Comment on above: Performed By: #### C BC, LIPASE, LACTIC, CMP #### [facility] [address] Magnesiumon 08-06-2021 Magnesium [Mass/Vol] 2.1 mg/dL Normal 1.6-2.6 [facility] Comment on above: Result Comment: PERF ORMED BY: [place] [address] PATHOLOGIST SALES CORRESPONDENCE CLERK ROBYN CASAS M.D. Performed By: #### C BC, LIPASE, LACTIC, CMP #### [address] Phosphoruson 08-06-2021 Phosphate [Mass/Vol] 1.8 mg/dL Low 2.5-4.6 [facility] Comment on above: Performed By: #### C BC, LIPASE, LACTIC, CMP #### [address] Scan and CBCon 08-06-2021 Additional Comments Normal [facility] Comment on above: Result Comment: Abso lute monocytosis is commonly reactive in nature. However, if unexplained, recommend follow-up CBC in 3 months to evaluate for persistence. PERFORMED BY: [place] [address] PATHOLOGIST SALES CORRESPONDENCE CLERK ROBYN CASAS M.D. Performed By: #### C BC, LIPASE, LACTIC, CMP #### [address] Basophils (Bld) [#/Vol] 0.0 10*3/uL Normal 0.0-0.2 [facility] Comment on above: Performed By: #### C BC, LIPASE, LACTIC, CMP #### [address] Basophils/100 WBC (Bld) 0.3 % Normal . [facility] Comment on above: Performed By: #### C BC, LIPASE, LACTIC, CMP #### [address] Eosinophils (Bld) [#/Vol] 0.1 10*3/uL Normal 0.0-0.45 [facility] Comment on above: Performed By: #### C BC, LIPASE, LACTIC, CMP #### [address] Eosinophils/100 WBC (Bld) 0.6 % Normal . [facility] Comment on above: Performed By: #### C BC, LIPASE, LACTIC, CMP #### [address] Erythrocyte distribution width (RBC) [Ratio] 14.2 % Normal 11.9-15.3 [facility] Comment on above: Performed By: #### C BC, LIPASE, LACTIC, CMP #### [address] Hematocrit (Bld) [Volume fraction] 32.5 % Low 34.0-46.4 [facility] Comment on above: Performed By: #### C BC, LIPASE, LACTIC, CMP #### [address] Hemoglobin (Bld) [Mass/Vol] 10.9 g/dL Low 11.8-15.4 [facility] Comment on above: Performed By: #### C BC, LIPASE, LACTIC, CMP #### [address] Lymphocytes (Bld) [#/Vol] 1.3 10*3/uL Normal 1.00-4.8 [facility] Comment on above: Performed By: #### C BC, LIPASE, LACTIC, CMP #### [address] Lymphocytes/100 WBC (Bld) 12.8 % Normal . [facility] Comment on above: Performed By: #### C BC, LIPASE, LACTIC, CMP #### [address] MCH (RBC) [Entitic mass] 31.6 pg Normal 24.7-34.3 [facility] Comment on above: Performed By: #### C BC, LIPASE, LACTIC, CMP #### [address] MCV (RBC) [Entitic vol] 94.5 fL Normal 80-100 [facility] Comment on above: Performed By: #### C BC, LIPASE, LACTIC, CMP #### [address] Mean Corpuscular HGB Conc 33.5 g/dL Normal 32.0-35.0 [facility] Comment on above: Performed By: #### C BC, LIPASE, LACTIC, CMP #### [address] Monocytes (Bld) [#/Vol] 1.6 10*3/uL High 0.0-0.8 [facility] Comment on above: Performed By: #### C BC, LIPASE, LACTIC, CMP #### [address] Monocytes/100 WBC (Bld) 16.0 % Normal . [facility] Comment on above: Performed By: #### C BC, LIPASE, LACTIC, CMP #### [address] Neutrophils (Bld) [#/Vol] 6.9 10*3/uL Normal 1.8-7.7 [facility] Comment on above: Performed By: #### C BC, LIPASE, LACTIC, CMP #### [address] Neutrophils/100 WBC (Bld) 70.3 % Normal . [facility] Comment on above: Performed By: #### C BC, LIPASE, LACTIC, CMP #### [address] Nucleated RBC/100 WBC (Bld) [Ratio] 0.1 % Normal 0-0.5 [facility] Comment on above: Performed By: #### C BC, LIPASE, LACTIC, CMP #### [facility] [address] Platelet Estimate Normal Normal Normal [facility] Comment on above: Performed By: #### C BC, LIPASE, LACTIC, CMP #### [facility] [address] Platelet mean volume (Bld) [Entitic vol] 7.3 fL Normal 6.3-10.7 [facility] Comment on above: Performed By: #### C BC, LIPASE, LACTIC, CMP #### [address] Platelet Morphology Normal Normal Normal [facility] Comment on above: Performed By: #### C BC, LIPASE, LACTIC, CMP #### [address] Platelets (Bld) [#/Vol] 183 10*3/uL Normal 150-450 [facility] Comment on above: Performed By: #### C BC, LIPASE, LACTIC, CMP #### [address] RBC (Bld) [#/Vol] 3.44 10*6/uL Low 3.60-5.00 [facility] Comment on above: Performed By: #### C BC, LIPASE, LACTIC, CMP #### [address] RBC morphology finding Nom (Bld) Normal Normal [facility] Comment on above: Performed By: #### C BC, LIPASE, LACTIC, CMP #### [address] WBC (Bld) [#/Vol] 9.9 10*3/uL Normal 4.5-11.0 [facility] Comment on above: Performed By: #### C BC, LIPASE, LACTIC, CMP #### [address] Basic Metabolic Panelon 11- Calcium [Mass/Vol] 8.0 mg/dL Low 8.2-10.2 [facility] Comment on above: Order Comment: Name Collection Type:: Clean-Voided Midstream Performed By: #### U A #### [address] Chloride [Moles/Vol] 112 mmol/L Normal 95-114 [facility] Comment on above: Order Comment: Name Collection Type:: Clean-Voided Midstream Performed By: #### U A #### [address] CO2 [Moles/Vol] 20.1 mmol/L Low 22.0-30.0 [facility] Comment on above: Order Comment: Name Collection Type:: Clean-Voided Midstream Performed By: #### U A #### [address] Creatinine [Mass/Vol] 0.75 mg/dL Normal 0.44-1.03 [facility] Comment on above: Order Comment: Name Collection Type:: Clean-Voided Midstream Performed By: #### U A #### [place] [address] [place] Creatinine Clr Calc Pharmacy 71.76 [facility] Comment on above: Order Comment: Name Collection Type:: Clean-Voided Midstream Performed By: #### U A #### [address] Estimated GFR ( Joey > 60 [facility] Comment on above: Order Comment: Name Collection Type:: Clean-Voided Midstream Result Comment: GFR estimated reference range: According to KDOQI guidelines, <60 ml/min/1.73m2 is sufficient to diagnose a patient with chronic kidney disease. Performed By: #### U A #### [place] [address] [place] Estimated GFR (Non- Am > 60 [facility] Comment on above: Order Comment: Name Collection Type:: Clean-Voided Midstream Performed By: #### U A #### [place] [address] [place] Glucose [Mass/Vol] 114 mg/dL High 70-100 [facility] Comment on above: Order Comment: Name Collection Type:: Clean-Voided Midstream Result Comment: [place] Glucose Reference Range is dependent on time and content of last meal. Glucose of more than 200 mg/dL in a nonstressed, ambulatory subject supports the diagnosis of Diabetes Mellitus. ADA recommended reference range Performed By: #### U A #### [address] Potassium [Moles/Vol] 3.4 mmol/L Low 3.5-5.1 [facility] Comment on above: Order Comment: Name Collection Type:: Clean-Voided Midstream Performed By: #### U A #### [address] Sodium [Moles/Vol] 143 mmol/L Normal 136-146 [facility] Comment on above: Order Comment: Name Collection Type:: Clean-Voided Midstream Performed By: #### U A #### [address] Urea nitrogen [Mass/Vol] 5 mg/dL Low 9-23 [facility] Comment on above: Order Comment: Name Collection Type:: Clean-Voided Midstream Performed By: #### U A #### [address] Complete Blood Count Auto Di ffon 08-05-2021 Basophils (Bld) [#/Vol] 0.0 10*3/uL Normal 0.0-0.2 [facility] Comment on above: Result Comment: PERF ORMED BY: [place] [address] PATHOLOGIST SALES CORRESPONDENCE CLERK ROBYN CASAS M.D. Performed By: #### U A #### [address] Basophils/100 WBC (Bld) 0.0 % Normal . [facility] Comment on above: Performed By: #### U A #### [place] [address] [place] Eosinophils (Bld) [#/Vol] 0.0 10*3/uL Normal 0.0-0.45 [facility] Comment on above: Performed By: #### U A #### [address] Eosinophils/100 WBC (Bld) 0.0 % Normal . [facility] Comment on above: Performed By: #### U A #### [address] Erythrocyte distribution width (RBC) [Ratio] 14.3 % Normal 11.9-15.3 [facility] Comment on above: Performed By: #### U A #### [address] Hematocrit (Bld) [Volume fraction] 37.1 % Normal 34.0-46.4 [facility] Comment on above: Performed By: #### U A #### [address] Hemoglobin (Bld) [Mass/Vol] 12.2 g/dL Normal 11.8-15.4 [facility] Comment on above: Performed By: #### U A #### [address] Lymphocytes (Bld) [#/Vol] 0.5 10*3/uL Low 1.00-4.8 [facility] Comment on above: Performed By: #### U A #### [address] Lymphocytes/100 WBC (Bld) 5.0 % Normal . [facility] Comment on above: Performed By: #### U A #### [address] MCH (RBC) [Entitic mass] 31.5 pg Normal 24.7-34.3 [facility] Comment on above: Performed By: #### U A #### [address] MCV (RBC) [Entitic vol] 96.1 fL Normal 80-100 [facility] Comment on above: Performed By: #### U A #### [facility] [address] Mean Corpuscular HGB Conc 32.8 g/dL Normal 32.0-35.0 [facility] Comment on above: Performed By: #### U A #### [facility] [address] [place] [address] [place] Monocytes (Bld) [#/Vol] 1.4 10*3/uL High 0.0-0.8 [facility] Comment on above: Performed By: #### U A #### [facility] [address] Monocytes/100 WBC (Bld) 13.9 % Normal . [facility] Comment on above: Performed By: #### U A #### [facility] [address] Neutrophils (Bld) [#/Vol] 8.4 10*3/uL High 1.8-7.7 [facility] Comment on above: Performed By: #### U A #### [facility] [address] Neutrophils/100 WBC (Bld) 81.1 % Normal . [facility] Comment on above: Performed By: #### U A #### [facility] [address] [place] [address] [place] Nucleated RBC/100 WBC (Bld) [Ratio] 0.0 % Normal 0-0.5 [facility] Comment on above: Performed By: #### U A #### [facility] [address] [place] [address] [place] Platelet mean volume (Bld) [Entitic vol] 7.6 fL Normal 6.3-10.7 [facility] Comment on above: Performed By: #### U A #### [facility] [address] [place] [address] [place] Platelets (Bld) [#/Vol] 182 10*3/uL Normal 150-450 [facility] Comment on above: Performed By: #### U A #### [facility] [address] RBC (Bld) [#/Vol] 3.86 10*6/uL Normal 3.60-5.00 [facility] Comment on above: Performed By: #### U A #### [place] [id number] [facility] WBC (Bld) [#/Vol] 10.4 10*3/uL Normal 4.5-11.0 [facility] Comment on above: Performed By: #### U A #### [address] Glucose Poct Glucometerson 10-05-2020 Commemt1 Glu2: Cleaned Meter [facility] Comment on above: Result Comment: PERF ORMED BY: [place] [address] PATHOLOGIST SALES CORRESPONDENCE CLERK ROBYN CASAS M.D. Performed By: #### U A #### [address] Glucose [Mass/Vol] 97 mg/dL Normal [facility] Comment on above: Result Comment: [place] Glucose Reference Range is dependent on time and content of last meal. Glucose of more than 200 mg/dL in a nonstressed, ambulatory subject supports the diagnosis of Diabetes Mellitus. Performed By: #### U A #### [address] Commemt1 Glu2: Cleaned Meter Normal [facility] Comment on above: Result Comment: PERF ORMED BY: [place] [address] PATHOLOGIST SALES CORRESPONDENCE CLERK ROBYN CASAS M.D. Performed By: #### U A #### [address] Glucose [Mass/Vol] 82 mg/dL Normal [facility] Comment on above: Result Comment: [place] om Glucose Reference Range is dependent on time and content of last meal. Glucose of more than 200 mg/dL in a nonstressed, ambulatory subject supports the diagnosis of Diabetes Mellitus. Performed By: #### U A #### [address] Glucose [Mass/Vol] 101 mg/dL Normal [facility] Comment on above: Result Comment: [facility][note 3] Glucose Reference Range is dependent on time and content of last meal. Glucose of more than 200 mg/dL in a nonstressed, ambulatory subject supports the diagnosis of Diabetes Mellitus. PERFORMED BY: [place] [address] PATHOLOGIST SALES CORRESPONDENCE CLERK ROBYN CASAS M.D. Performed By: #### U A #### [address] Prealbuminon 08-05-2021 Prealbumin [Mass/Vol] 7.8 mg/dL Low 18.0-38.0 [facility] Comment on above: Order Comment: Name Collection Type:: Clean-Voided Midstream Result Comment: PERF ORMED BY: [place] [address] PATHOLOGIST SALES CORRESPONDENCE CLERK ROBYN CASAS M.D. Performed By: #### U A #### [address] Basic Metabolic Panelon 07-24 Calcium [Mass/Vol] 8.8 mg/dL Normal 8.2-10.2 [facility] Comment on above: Performed By: #### U A #### [address] Chloride [Moles/Vol] 112 mmol/L Normal 95-114 [facility] Comment on above: Performed By: #### U A #### [address] CO2 [Moles/Vol] 20.1 mmol/L Low 22.0-30.0 [facility] Comment on above: Performed By: #### U A #### [address] Creatinine [Mass/Vol] 0.76 mg/dL Normal 0.44-1.03 [facility] Comment on above: Performed By: #### U A #### [place] [address] [place] Creatinine Clr Calc Pharmacy 71.76 Normal [facility] Comment on above: Result Comment: PERF ORMED BY: [place] [address] PATHOLOGIST SALES CORRESPONDENCE CLERK ROBYN CASAS M.D. Performed By: #### U A #### [address] Estimated GFR ( Joey > 60 Normal [facility] Comment on above: Result Comment: GFR estimated reference range: According to KDOQI guidelines, <60 ml/min/1.73m2 is sufficient to diagnose a patient with chronic kidney disease. Performed By: #### U A #### [address] Estimated GFR (Non- Am > 60 Normal [facility] Comment on above: Performed By: #### U A #### [address] Glucose [Mass/Vol] 81 mg/dL Normal 70-100 [facility] Comment on above: Result Comment: [place] om Glucose Reference Range is dependent on time and content of last meal. Glucose of more than 200 mg/dL in a nonstressed, ambulatory subject supports the diagnosis of Diabetes Mellitus. ADA recommended reference range Performed By: #### U A #### [place] [address] [place] Potassium [Moles/Vol] 3.2 mmol/L Low 3.5-5.1 [facility] Comment on above: Performed By: #### U A #### [place] [address] [place] Sodium [Moles/Vol] 146 mmol/L Normal 136-146 [facility] Comment on above: Performed By: #### U A #### [place] [address] [place] Urea nitrogen [Mass/Vol] 7 mg/dL Low 9-23 [facility] Comment on above: Performed By: #### U A #### [address] Complete Blood Count Auto Di ffon 08-04-2021 Basophils (Bld) [#/Vol] 0.0 10*3/uL Normal 0.0-0.2 [facility] Comment on above: Result Comment: PERF ORMED BY: [place] [address] PATHOLOGIST SALES CORRESPONDENCE CLERK ROBYN CASAS M.D. Performed By: #### U A #### [address] Basophils/100 WBC (Bld) 0.2 % Normal . [facility] Comment on above: Performed By: #### U A #### [address] Eosinophils (Bld) [#/Vol] 0.0 10*3/uL Normal 0.0-0.45 [facility] Comment on above: Performed By: #### U A #### [address] Eosinophils/100 WBC (Bld) 0.5 % Normal . [facility] Comment on above: Performed By: #### U A #### [address] Erythrocyte distribution width (RBC) [Ratio] 14.3 % Normal 11.9-15.3 [facility] Comment on above: Performed By: #### U A #### [address] Hematocrit (Bld) [Volume fraction] 40.2 % Normal 34.0-46.4 [facility] Comment on above: Performed By: #### U A #### [address] Hemoglobin (Bld) [Mass/Vol] 13.1 g/dL Normal 11.8-15.4 [facility] Comment on above: Performed By: #### U A #### [address] Lymphocytes (Bld) [#/Vol] 0.8 10*3/uL Low 1.00-4.8 [facility] Comment on above: Performed By: #### U A #### [address] Lymphocytes/100 WBC (Bld) 13.1 % Normal . [facility] Comment on above: Performed By: #### U A #### [address] MCH (RBC) [Entitic mass] 31.5 pg Normal 24.7-34.3 [facility] Comment on above: Performed By: #### U A #### [address] MCV (RBC) [Entitic vol] 96.6 fL Normal 80-100 [facility] Comment on above: Performed By: #### U A #### [address] Mean Corpuscular HGB Conc 32.6 g/dL Normal 32.0-35.0 [facility] Comment on above: Performed By: #### U A #### [address] Monocytes (Bld) [#/Vol] 1.0 10*3/uL High 0.0-0.8 [facility] Comment on above: Performed By: #### U A #### [address] Monocytes/100 WBC (Bld) 16.4 % Normal . [facility] Comment on above: Performed By: #### U A #### [address] Neutrophils (Bld) [#/Vol] 4.2 10*3/uL Normal 1.8-7.7 [facility] Comment on above: Performed By: #### U A #### [address] Neutrophils/100 WBC (Bld) 69.8 % Normal . [facility] Comment on above: Performed By: #### U A #### [facility] [address] Nucleated RBC/100 WBC (Bld) [Ratio] 0.0 % Normal 0-0.5 [facility] Comment on above: Performed By: #### U A #### [facility] [address] Platelet mean volume (Bld) [Entitic vol] 8.1 fL Normal 6.3-10.7 [facility] Comment on above: Performed By: #### U A #### [facility] [address] Platelets (Bld) [#/Vol] 196 10*3/uL Normal 150-450 [facility] Comment on above: Performed By: #### U A #### [facility] [address] RBC (Bld) [#/Vol] 4.16 10*6/uL Normal 3.60-5.00 [facility] Comment on above: Performed By: #### U A #### [address] WBC (Bld) [#/Vol] 6.0 10*3/uL Normal 4.5-11.0 [facility] Comment on above: Performed By: #### U A #### [place] [address] [place] XR KUBon 08-04-2021 XR KUB [facility] [place] [address] XRay Report Signed Patient: Areli Hawkins MR#: [id number] : 1945 Acct:[id number] Age/Sex: 75 / F ADM Date: 08/01/21 Loc: Room: [address] [place] [address] Type: ADM IN Attending Dr: Indio Puga [...] Allan Salinas M.D.08/04/2021 8:32 AM Dictation Location: [place] [address] Transcribed By: [facility] 08/04/21831 Dictated By: Allan Salinas DO 08/04/2129 Signed By: 08/04/2132 [facility] XR chest 1V portableon 08-04 XR chest 1V portable [facility] [place] [address] XRay Report Signed Patient: Areli Hawkins MR#: [id number] : 1945 Acct:[id number] Age/Sex: 75 / F ADM Date: 08/01/21 Loc: Room: [address] [place] [address] Type: ADM IN Attending Dr: Indio Puga [...] Lucas Jr., M.D.08/04/2021 6:52 PM Dictation Location: [place] [address] Transcribed By: [facility] 08/04/211851 Dictated By: Kvng Lucas Jr, MD 08/04/211849 Signed By: 08/04/211851 [facility] Basic Metabolic Panelon 07-24 Calcium [Mass/Vol] 8.7 mg/dL Normal 8.2-10.2 [facility] Comment on above: Performed By: #### B MP, CBC ####[facility] [place] [address] [facility] Chloride [Moles/Vol] 109 mmol/L Normal 95-114 [facility] Comment on above: Performed By: #### B MP, CBC ####[place] [address] [place] [address] [facility] CO2 [Moles/Vol] 20.3 mmol/L Low 22.0-30.0 [facility] Comment on above: Performed By: #### B MP, CBC ####[place] [address] [place] [address] [facility] Creatinine [Mass/Vol] 0.78 mg/dL Normal 0.44-1.03 [facility] Comment on above: Performed By: #### B MP, CBC ####[place] [address] [place] [address] [facility] Creatinine Clr Calc Pharmacy 71.76 [facility] Comment on above: Result Comment: PERF ORMED BY: [facility] [address] [place] [id number] PATHOLOGIST SALES CORRESPONDENCE CLERK ROBYN CASAS M.D. Performed By: #### B MP, CBC ####[place] [address] [place] [address] [facility] Estimated GFR ( Joey > 60 [facility] Comment on above: Result Comment: GFR estimated reference range: According to KDOQI guidelines, <60 ml/min/1.73m2 is sufficient to diagnose a patient with chronic kidney disease. Performed By: #### B MP, CBC ####[address] [address] [place] Estimated GFR (Non- Am > 60 Normal [facility] Comment on above: Performed By: #### B MP, CBC ####[facility] [place] [address] [facility] Glucose [Mass/Vol] 101 mg/dL High 70-100 [facility] Comment on above: Result Comment: [place] Glucose Reference Range is dependent on time and content of last meal. Glucose of more than 200 mg/dL in a nonstressed, ambulatory subject supports the diagnosis of Diabetes Mellitus. ADA recommended reference range Performed By: #### B MP, CBC ####[place] [address] [place] [address] [facility] Potassium [Moles/Vol] 3.8 mmol/L Normal 3.5-5.1 [facility] Comment on above: Performed By: #### B MP, CBC ####[place] [id number] [facility] Sodium [Moles/Vol] 143 mmol/L Normal 136-146 [facility] Comment on above: Performed By: #### B MP, CBC ####[place] [address] [place] [address] [facility] Urea nitrogen [Mass/Vol] 6 mg/dL Low 9-23 [facility] Comment on above: Performed By: #### B MP, CBC ####[facility] [place] [id number] [facility] Complete Blood Count Auto Di ffon 08-03-2021 Basophils (Bld) [#/Vol] 0.0 10*3/uL Normal 0.0-0.2 [facility] Comment on above: Result Comment: PERF ORMED BY: [facility] [address] [place] [id number] PATHOLOGIST SALES CORRESPONDENCE CLERK ROBYN CASAS M.D. Performed By: #### B MP, CBC ####[place] [address] [place] [id number] [place] Basophils/100 WBC (Bld) 0.2 % Normal . [facility] Comment on above: Performed By: #### B MP, CBC ####[facility] [place] [address] [facility] Eosinophils (Bld) [#/Vol] 0.0 10*3/uL Normal 0.0-0.45 [facility] Comment on above: Performed By: #### B MP, CBC ####[place] [id number] [facility] Eosinophils/100 WBC (Bld) 0.2 % Normal . [facility] Comment on above: Performed By: #### B MP, CBC ####[place] [id number] [facility] Erythrocyte distribution width (RBC) [Ratio] 14.4 % Normal 11.9-15.3 [facility] Comment on above: Performed By: #### B MP, CBC ####[address] Hematocrit (Bld) [Volume fraction] 39.7 % Normal 34.0-46.4 [facility] Comment on above: Performed By: #### B MP, CBC ####[place] [id number] [facility] Hemoglobin (Bld) [Mass/Vol] 13.2 g/dL Normal 11.8-15.4 [facility] Comment on above: Performed By: #### B MP, CBC ####[place] [id number] [facility] Lymphocytes (Bld) [#/Vol] 0.7 10*3/uL Low 1.00-4.8 [facility] Comment on above: Performed By: #### B MP, CBC ####[place] [id number] [facility] Lymphocytes/100 WBC (Bld) 7.0 % Normal . [facility] Comment on above: Performed By: #### B MP, CBC ####[place] [id number] [facility] MCH (RBC) [Entitic mass] 31.6 pg Normal 24.7-34.3 [facility] Comment on above: Performed By: #### B MP, CBC ####[place] [id number] [facility] MCV (RBC) [Entitic vol] 95.5 fL Normal 80-100 [facility] Comment on above: Performed By: #### B MP, CBC ####[place] [address] [facility] Mean Corpuscular HGB Conc 33.1 g/dL Normal 32.0-35.0 [facility] Comment on above: Performed By: #### B MP, CBC ####[place] [address] [facility] Monocytes (Bld) [#/Vol] 1.2 10*3/uL High 0.0-0.8 [facility] Comment on above: Performed By: #### B MP, CBC ####[place] [address] [facility] Monocytes/100 WBC (Bld) 12.3 % Normal . [facility] Comment on above: Performed By: #### B MP, CBC ####[place] [address] [facility] Neutrophils (Bld) [#/Vol] 8.1 10*3/uL High 1.8-7.7 [facility] Comment on above: Performed By: #### B MP, CBC ####[place] [address] [facility] Neutrophils/100 WBC (Bld) 80.3 % Normal . [facility] Comment on above: Performed By: #### B MP, CBC ####[place] [address] [facility] Nucleated RBC/100 WBC (Bld) [Ratio] 0.0 % Normal 0-0.5 [facility] Comment on above: Performed By: #### B MP, CBC ####[place] [id number] [facility] Platelet mean volume (Bld) [Entitic vol] 7.8 fL Normal 6.3-10.7 [facility] Comment on above: Performed By: #### B MP, CBC ####[facility] [id number] [place] [id number] [facility] Platelets (Bld) [#/Vol] 210 10*3/uL Normal 150-450 [facility] Comment on above: Performed By: #### B MP, CBC ####[facility] RBC (Bld) [#/Vol] 4.16 10*6/uL Normal 3.60-5.00 [facility] Comment on above: Performed By: #### B MP, CBC ####[facility] [place] [address] [facility] WBC (Bld) [#/Vol] 10.1 10*3/uL Normal 4.5-11.0 [facility] Comment on above: Performed By: #### B MP, CBC ####[place] [address] XR abdomen min 2Von 08-03-20 21 XR abdomen min 2V [facility] Main [place] [address] [place] [address] XRay Report Signed Patient: Areli Hawkins MR#: [id number] : 1945 Acct:[id number] Age/Sex: 75 / F ADM Date: 08/01/21 Loc: Room: [address] [place] [address] Type: ADM IN Attending Dr: Indio Puga [...] Harsh Pickett M.D.08/03/2021 8:21 AM Dictation Location: [place] [address] Transcribed By: [facility] 08/03/21820 Dictated By: Harsh Pickett MD 08/03/21814 Signed By: 08/03/21820 [facility] Basic Metabolic Panelon 07-24 Calcium [Mass/Vol] 8.9 mg/dL Normal 8.2-10.2 [facility] Comment on above: Performed By: #### Michael Mendez, BMP ####[place] [address] Chloride [Moles/Vol] 109 mmol/L Normal 95-114 [facility] Comment on above: Performed By: #### Michael Mendez, BMP ####[place] [id number] [facility] CO2 [Moles/Vol] 19.9 mmol/L Low 22.0-30.0 [facility] Comment on above: Performed By: #### Michael Mendez, BMP ####[address] Creatinine [Mass/Vol] 0.70 mg/dL Normal 0.44-1.03 [facility] Comment on above: Performed By: #### Michael Mendez, BMP ####[place] [id number] [facility] Creatinine Clr Calc Pharmacy 71.76 [facility] Comment on above: Performed By: #### Michael Mendez, BMP ####[place] [id number] [facility] Estimated GFR ( Joey > 60 [facility] Comment on above: Result Comment: GFR estimated reference range: According to KDOQI guidelines, <60 ml/min/1.73m2 is sufficient to diagnose a patient with chronic kidney disease. Performed By: #### Michael Mendez, BMP ####[facility] [place] [id number] [facility] Estimated GFR (Non- Am > 60 Normal [facility] Comment on above: Performed By: #### Michael Mendez, BMP ####[place] [id number] [facility] Glucose [Mass/Vol] 99 mg/dL Normal 70-100 [facility] Comment on above: Result Comment: [place] Glucose Reference Range is dependent on time and content of last meal. Glucose of more than 200 mg/dL in a nonstressed, ambulatory subject supports the diagnosis of Diabetes Mellitus. ADA recommended reference range Performed By: #### M Vanessa, BMP ####[address] Potassium [Moles/Vol] 3.4 mmol/L Low 3.5-5.1 [facility] Comment on above: Performed By: #### Michael Mendez, BMP ####[address] Sodium [Moles/Vol] 141 mmol/L Normal 136-146 [facility] Comment on above: Performed By: #### Michael G, BMP ####[address] Urea nitrogen [Mass/Vol] 5 mg/dL Low 9-23 [facility] Comment on above: Performed By: #### Michael G, BMP ####[place] [id number] [facility] Complete Blood Count Auto Di ffon 08-02-2021 Basophils (Bld) [#/Vol] 0.0 10*3/uL Normal 0.0-0.2 [facility] Comment on above: Order Comment: Speci men clotted. Redraw requested. Notified Shannen HENAO. Will notify Juwan Gu RN. Result Comment: PERF ORMED BY: [facility] [address] [place] [address] PATHOLOGIST SALES CORRESPONDENCE CLERK ROBYN CASAS M.D. Performed By: #### C BC ####[place] [id number] [place] Basophils/100 WBC (Bld) 0.1 % Normal . [facility] Comment on above: Order Comment: Speci men clotted. Redraw requested. Notified Shannen HENAO. Will notify Juwan Gu RN. Performed By: #### C BC ####[address] Eosinophils (Bld) [#/Vol] 0.0 10*3/uL Normal 0.0-0.45 [facility] Comment on above: Order Comment: Speci men clotted. Redraw requested. Notified Shannen HENAO. Will notify Juwan Gu RN. Performed By: #### C BC ####[address] Eosinophils/100 WBC (Bld) 0.3 % Normal . [facility] Comment on above: Order Comment: Speci men clotted. Redraw requested. Notified Shannen HENAO. Will notify Juwan Gu RN. Performed By: #### C BC ####[address] Erythrocyte distribution width (RBC) [Ratio] 14.2 % Normal 11.9-15.3 [facility] Comment on above: Order Comment: Speci men clotted. Redraw requested. Notified Shannen HENAO. Will notify Juwan Gu RN. Performed By: #### C BC ####[address] Hematocrit (Bld) [Volume fraction] 39.5 % Normal 34.0-46.4 [facility] Comment on above: Order Comment: Speci men clotted. Redraw requested. Notified Shannen HENAO. Will notify Juwan Gu RN. Performed By: #### C BC ####[address] Hemoglobin (Bld) [Mass/Vol] 13.0 g/dL Normal 11.8-15.4 [facility] Comment on above: Order Comment: Speci men clotted. Redraw requested. Notified Shannen HENAO. Will notify Juwan Gu RN. Performed By: #### C BC ####[address] Lymphocytes (Bld) [#/Vol] 0.8 10*3/uL Low 1.00-4.8 [facility] Comment on above: Order Comment: Speci men clotted. Redraw requested. Notified Shannen HENAO. Will notify Juwan Gu RN. Performed By: #### C BC ####[address] Lymphocytes/100 WBC (Bld) 7.0 % Normal . [facility] Comment on above: Order Comment: Speci men clotted. Redraw requested. Notified Shannen HENAO. Will notify Juwan Gu RN. Performed By: #### C BC ####[address] MCH (RBC) [Entitic mass] 31.3 pg Normal 24.7-34.3 [facility] Comment on above: Order Comment: Speci men clotted. Redraw requested. Notified Shannen HENAO. Will notify Juwan Gu RN. Performed By: #### C BC ####[address] MCV (RBC) [Entitic vol] 95.4 fL Normal 80-100 [facility] Comment on above: Order Comment: Speci men clotted. Redraw requested. Notified Shannen TRIPLETT Will notify Juwan Gu RN. Performed By: #### C BC ####[address] Mean Corpuscular HGB Conc 32.9 g/dL Normal 32.0-35.0 [facility] Comment on above: Order Comment: Speci men clotted. Redraw requested. Notified Shannen TRIPLETT Will notify Juwan Gu RN. Performed By: #### C BC ####[address] Monocytes (Bld) [#/Vol] 0.9 10*3/uL High 0.0-0.8 [facility] Comment on above: Order Comment: Speci men clotted. Redraw requested. Notified Shannen HENAO. Will notify Juwan Gu RN. Performed By: #### C BC ####[address] Monocytes/100 WBC (Bld) 7.7 % Normal . [facility] Comment on above: Order Comment: Speci men clotted. Redraw requested. Notified Shannen HENAO. Will notify Juwan Gu RN. Performed By: #### C BC ####[address] Neutrophils (Bld) [#/Vol] 9.5 10*3/uL High 1.8-7.7 [facility] Comment on above: Order Comment: Speci men clotted. Redraw requested. Notified Shannen HENAO. Will notify Juwan Gu RN. Performed By: #### C BC ####[address] Neutrophils/100 WBC (Bld) 84.9 % Normal . [facility] Comment on above: Order Comment: Speci men clotted. Redraw requested. Notified Shannen HENAO. Will notify Juwan Gu RN. Performed By: #### C BC ####[address] Nucleated RBC/100 WBC (Bld) [Ratio] 0.0 % Normal 0-0.5 [facility] Comment on above: Order Comment: Speci men clotted. Redraw requested. Notified Shannen HENAO. Will notify Juwan Gu RN. Performed By: #### C BC ####[address] Platelet mean volume (Bld) [Entitic vol] 8.2 fL Normal 6.3-10.7 [facility] Comment on above: Order Comment: Speci men clotted. Redraw requested. Notified Shannen HENAO. Will notify Juwan Gu RN. Performed By: #### C BC ####[address] Platelets (Bld) [#/Vol] 193 10*3/uL Normal 150-450 [facility] Comment on above: Order Comment: Speci men clotted. Redraw requested. Notified Shannen HENAO. Will notify Juwan Gu RN. Performed By: #### C BC ####[address] RBC (Bld) [#/Vol] 4.14 10*6/uL Normal 3.60-5.00 [facility] Comment on above: Order Comment: Speci men clotted. Redraw requested. Notified Shannen HENAO. Will notify Juwan Gu RN. Performed By: #### C BC ####[address] WBC (Bld) [#/Vol] 11.2 10*3/uL High 4.5-11.0 [facility] Comment on above: Order Comment: Speci men clotted. Redraw requested. Notified Shannen HENAO. Will notify Juwan Gu RN. Performed By: #### C BC ####[address] Magnesiumon 08-02-2021 Magnesium [Mass/Vol] 1.8 mg/dL Normal 1.6-2.6 [facility] Comment on above: Result Comment: PERF ORMED BY: [facility] [address] [place] [address] PATHOLOGIST SALES CORRESPONDENCE CLERK ROBYN CASAS M.D. Performed By: #### M G, BMP ####[address] XR KUBon 08-02-2021 XR KUB [facility] [place] [address] XRay Report Signed Patient: Areli Hawkins MR#: [id number] : 1945 Acct:[id number] Age/Sex: 75 / F ADM Date: 08/01/21 Loc: Room: [address] [place] [address] Type: ADM IN Attending Dr: Indio Puga [...] Allan Salinas M.D.08/02/2021 8:28 AM Dictation Location: [place] [address] Transcribed By: [facility] 08/02/21827 Dictated By: Allan Salinas DO 08/02/21809 Signed By: 08/02/21827 [facility] COVID-19 Antigenon 1 COVID-19 Antigen Healthcare Worker?: [...] its performance Heaven Disclaimer characteristic determined by [employer] and Heaven Disclaimer validated at [facility]. This Heaven Disclaimer test has not been [...] is terminated or revoked sooner. PERFORMED BY: [address] [place] [id number] PATHOLOGIST SALES CORRESPONDENCE CLERK ROBYN CASAS M.D. Normal [facility] Comment on above: Performed By: #### S OFIANEG, COVID-19 HEAVEN #### [facility] [address] [place] [id number] [facility] COVID[facility]19 [facility] SARS-CoV-2 (COVID-19) RNA CHETAN+probe Ql (Unsp spec) Negative Normal Negative [facility] Comment on above: Order Comment: Healt hcare Worker?: N Result Comment: Testing for SARS-CoV-2 by RT-PCR This test was developed and its performance characteristics determined by [employer] and validated at the [facility]. This test has not been FDA cleared [...] is terminated or revoked sooner. PERFORMED BY: [facility] [address] [place] [id number] PATHOLOGIST SALES CORRESPONDENCE CLERK ROBYN CASAS M.D. Performed By: #### C OVID 19 [facility] ####[facility] [address] [place] [address] [facility] CT abdomen pelvis wo conon 1 10-01-2020 CT abdomen pelvis wo con [facility] Main [place] [address] [place] [address] CT Scan Report Signed Patient: Areli Hawkins MR#: [id number] : 1945 Acct:[id number] Age/Sex: 75 / F ADM Date: 08/01/21 Loc: Room: 8Q7262-2 Type: ADM IN Attending Dr: Indio Puga [...] Allan Salinas M.D.08/01/2021 9:44 AM Dictation Location: [place] [address] Transcribed By: [facility] 08/01/21943 Dictated By: Allan Salinas DO 08/01/21937 Signed By: 08/01/21943 Normal [facility] Complete Blood Count Auto Di ffon 08-01-2021 Basophils (Bld) [#/Vol] 0.0 10*3/uL Normal 0.0-0.2 [facility] Comment on above: Result Comment: PERF ORMED BY: [place] [address] PATHOLOGIST SALES CORRESPONDENCE CLERK ROBYN CASAS M.D. Performed By: #### C BC, LIPASE, LACTIC, CMP #### [address] Basophils/100 WBC (Bld) 0.4 % Normal . [facility] Comment on above: Performed By: #### C BC, LIPASE, LACTIC, CMP #### [address] Eosinophils (Bld) [#/Vol] 0.1 10*3/uL Normal 0.0-0.45 [facility] Comment on above: Performed By: #### C BC, LIPASE, LACTIC, CMP #### [address] Eosinophils/100 WBC (Bld) 0.8 % Normal . [facility] Comment on above: Performed By: #### C BC, LIPASE, LACTIC, CMP #### [address] Erythrocyte distribution width (RBC) [Ratio] 14.0 % Normal 11.9-15.3 [facility] Comment on above: Performed By: #### C BC, LIPASE, LACTIC, CMP #### [address] Hematocrit (Bld) [Volume fraction] 39.8 % Normal 34.0-46.4 [facility] Comment on above: Performed By: #### C BC, LIPASE, LACTIC, CMP #### [address] [place] [address] [place] Hemoglobin (Bld) [Mass/Vol] 13.3 g/dL Normal 11.8-15.4 [facility] Comment on above: Performed By: #### C BC, LIPASE, LACTIC, CMP #### [address] Lymphocytes (Bld) [#/Vol] 1.0 10*3/uL Normal 1.00-4.8 [facility] Comment on above: Performed By: #### C BC, LIPASE, LACTIC, CMP #### [address] Lymphocytes/100 WBC (Bld) 10.9 % Normal . [facility] Comment on above: Performed By: #### C BC, LIPASE, LACTIC, CMP #### [address] MCH (RBC) [Entitic mass] 31.3 pg Normal 24.7-34.3 [facility] Comment on above: Performed By: #### C BC, LIPASE, LACTIC, CMP #### [address] MCV (RBC) [Entitic vol] 93.7 fL Normal 80-100 [facility] Comment on above: Performed By: #### C BC, LIPASE, LACTIC, CMP #### [address] Mean Corpuscular HGB Conc 33.4 g/dL Normal 32.0-35.0 [facility] Comment on above: Performed By: #### C BC, LIPASE, LACTIC, CMP #### [address] Monocytes (Bld) [#/Vol] 0.9 10*3/uL High 0.0-0.8 [facility] Comment on above: Performed By: #### C BC, LIPASE, LACTIC, CMP #### [address] Monocytes/100 WBC (Bld) 9.5 % Normal . [facility] Comment on above: Performed By: #### C BC, LIPASE, LACTIC, CMP #### [address] Neutrophils (Bld) [#/Vol] 7.4 10*3/uL Normal 1.8-7.7 [facility] Comment on above: Performed By: #### C BC, LIPASE, LACTIC, CMP #### [address] Neutrophils/100 WBC (Bld) 78.4 % Normal . [facility] Comment on above: Performed By: #### C BC, LIPASE, LACTIC, CMP #### [address] Nucleated RBC/100 WBC (Bld) [Ratio] 0.1 % Normal 0-0.5 [facility] Comment on above: Performed By: #### C BC, LIPASE, LACTIC, CMP #### [address] Platelet mean volume (Bld) [Entitic vol] 8.5 fL Normal 6.3-10.7 [facility] Comment on above: Performed By: #### C BC, LIPASE, LACTIC, CMP #### [address] Platelets (Bld) [#/Vol] 194 10*3/uL Normal 150-450 [facility] Comment on above: Performed By: #### C BC, LIPASE, LACTIC, CMP #### [address] RBC (Bld) [#/Vol] 4.25 10*6/uL Normal 3.60-5.00 [facility] Comment on above: Performed By: #### C BC, LIPASE, LACTIC, CMP #### [address] WBC (Bld) [#/Vol] 9.5 10*3/uL Normal 4.5-11.0 [facility] Comment on above: Performed By: #### C BC, LIPASE, LACTIC, CMP #### [address] [place] [address] [place] Comprehensive Metabolic Pane lizy 08-01-2021 Albumin [Mass/Vol] 3.5 g/dL Normal 3.2-5.5 [facility] Comment on above: Performed By: #### C BC, LIPASE, LACTIC, CMP #### [facility] [address] Albumin/Globulin [Mass ratio] 1.3 {ratio} Normal [facility] Comment on above: Performed By: #### C BC, LIPASE, LACTIC, CMP #### [facility] [address] ALP [Catalytic activity/Vol] 54 U/L Normal 32-92 [facility] Comment on above: Performed By: #### C BC, LIPASE, LACTIC, CMP #### [address] ALT [Catalytic activity/Vol] 16 U/L Normal 10-60 [facility] Comment on above: Performed By: #### C BC, LIPASE, LACTIC, CMP #### [address] AST [Catalytic activity/Vol] 30 U/L Normal 10-42 [facility] Comment on above: Performed By: #### C BC, LIPASE, LACTIC, CMP #### [address] Bilirubin [Mass/Vol] 0.7 mg/dL Normal 0.3-1.2 [facility] Comment on above: Performed By: #### C BC, LIPASE, LACTIC, CMP #### [facility] [address] [place] [address] [place] Calcium [Mass/Vol] 9.1 mg/dL Normal 8.2-10.2 [facility] Comment on above: Performed By: #### C BC, LIPASE, LACTIC, CMP #### [facility] [address] Chloride [Moles/Vol] 106 mmol/L Normal 95-114 [facility] Comment on above: Performed By: #### C BC, LIPASE, LACTIC, CMP #### [facility] [address] CO2 [Moles/Vol] 21.0 mmol/L Low 22.0-30.0 [facility] Comment on above: Performed By: #### C BC, LIPASE, LACTIC, CMP #### [address] Creatinine [Mass/Vol] 0.77 mg/dL Normal 0.44-1.03 [facility] Comment on above: Performed By: #### C BC, LIPASE, LACTIC, CMP #### [address] Creatinine Clr Calc Pharmacy 71.76 [facility] Comment on above: Performed By: #### C BC, LIPASE, LACTIC, CMP #### [address] Estimated GFR ( Joey > 60 [facility] Comment on above: Result Comment: GFR estimated reference range: According to KDOQI guidelines, <60 ml/min/1.73m2 is sufficient to diagnose a patient with chronic kidney disease. Performed By: #### C BC, LIPASE, LACTIC, CMP #### [address] Estimated GFR (Non- Am > 60 [facility] Comment on above: Performed By: #### C BC, LIPASE, LACTIC, CMP #### [address] Globulin (S) [Mass/Vol] 2.6 g/dL [facility] Comment on above: Performed By: #### C BC, LIPASE, LACTIC, CMP #### [address] Glucose [Mass/Vol] 106 mg/dL High 70-100 [facility] Comment on above: Result Comment: [place] Glucose Reference Range is dependent on time and content of last meal. Glucose of more than 200 mg/dL in a nonstressed, ambulatory subject supports the diagnosis of Diabetes Mellitus. ADA recommended reference range Performed By: #### C BC, LIPASE, LACTIC, CMP #### [facility] [address] Potassium [Moles/Vol] 3.2 mmol/L Low 3.5-5.1 [facility] Comment on above: Performed By: #### C BC, LIPASE, LACTIC, CMP #### [facility] [address] Protein [Mass/Vol] 6.1 g/dL Normal 6.1-7.9 [facility] Comment on above: Performed By: #### C BC, LIPASE, LACTIC, CMP #### [address] Sodium [Moles/Vol] 139 mmol/L Normal 136-146 [facility] Comment on above: Performed By: #### C BC, LIPASE, LACTIC, CMP #### [address] Urea nitrogen [Mass/Vol] 7 mg/dL Low 9-23 [facility] Comment on above: Performed By: #### C BC, LIPASE, LACTIC, CMP #### [address] Consultation Noteon 08-01-20 Consultation Note [id number] D:127 Normal [facility] ECG 12 lead ECGon 08-01-2021 ECG 12 lead ECG [facility] Main [place] [address] [place] [address] Electrocardiograph Report Signed Patient: Areli Hawkins MR#: [id number] : 1945 Acct:[id number] Age/Sex: 75 / F ADM Date: 08/01/21 Loc: ER Room: Type: [facility] ER Attending Dr: Ordering Provider: Matt Martinez [...] ECGs available Confirmed by MATT MARTINEZ MD ([id number]) on 08/01/2021 5:35:09 AM Referred By: Electronically Signed By:MATT MARTINEZ MD Transcribed By: MUS Signed By Matt Martinez Jr, MD [id number] Normal [facility] Lactic Acidon 08-01-2021 Lactate [Moles/Vol] 1.5 mmol/L Normal 0.5-2.2 [facility] Comment on above: Result Comment: PERF ORMED BY: [facility] [address] [place] [address] PATHOLOGIST SALES CORRESPONDENCE CLERK ROBYN CASAS M.D. Performed By: #### C BC, LIPASE, LACTIC, CMP #### [facility] [address] Lipaseon 08-01-2021 Lipase [Catalytic activity/Vol] 28.0 U/L Normal 22-51 [facility] Comment on above: Result Comment: PERF ORMED BY: [facility] [address] [place] [address] PATHOLOGIST SALES CORRESPONDENCE CLERK ROBYN CASAS M.D. Performed By: #### C BC, LIPASE, LACTIC, CMP #### [facility] [address] [place] [address] RAD - MISCon 08-01-2021 RAD - MISC [id number] D:127 Normal [facility] Heaven Ag Negativeon 08-01-20 21 Heaven Ag Negative Negative Normal Negative [facility] Comment on above: Result Comment: This is a duplicate Heaven SARS Antigen (ALEKS) result to be used for statistical tracking purpose only. PERFORMED BY: [facility] [address] [place] [id number] PATHOLOGIST SALES CORRESPONDENCE CLERK ROBYN CASAS M.D. Performed By: #### S LESTER MEIERID-19 HEAVEN #### [facility] [address] [place] [id number] [place] Urinalysison 08-01-2021 Appearance (U) Clear Normal Clear [facility] Comment on above: Order Comment: Name Collection Type:: Clean-Voided Midstream Performed By: #### U A #### [facility] [address] [place] [address] [place] Bilirubin,Urine Negative Normal Negative [facility] Comment on above: Order Comment: Name Collection Type:: Clean-Voided Midstream Performed By: #### U A #### [facility] [address] [place] [address] [place] Color (U) Yellow Normal Yellow [facility] Comment on above: Order Comment: Name Collection Type:: Clean-Voided Midstream Performed By: #### U A #### [facility] [address] [place] [address] [place] Glucose Ql (U) Normal Normal Normal [facility] Comment on above: Order Comment: Name Collection Type:: Clean-Voided Midstream Performed By: #### U A #### [facility] [address] [place] [address] [place] Ketones Ql (U) Negative Normal Negative [facility] Comment on above: Order Comment: Name Collection Type:: Clean-Voided Midstream Performed By: #### U A #### [facility] [address] [place] [address] [place] Leukocyte esterase Test strip Ql (U) Negative Normal Negative [facility] Comment on above: Order Comment: Name Collection Type:: Clean-Voided Midstream Performed By: #### U A #### [facility] [address] [place] [address] [place] Nitrite,Urine Negative Normal Negative [facility] Comment on above: Order Comment: Name Collection Type:: Clean-Voided Midstream Performed By: #### U A #### [facility] [address] [place] [address] [place] Occult Blood,Urine Negative Normal Negative [facility] Comment on above: Order Comment: Name Collection Type:: Clean-Voided Midstream Result Comment: PERF ORMED BY: [address] [place] [address] PATHOLOGIST SALES CORRESPONDENCE CLERK ROBYN CASAS M.D. Performed By: #### U A #### [address] pH (U) 5.5 [pH] Normal 5.0-9.0 [facility] Comment on above: Order Comment: Name Collection Type:: Clean-Voided Midstream Performed By: #### U A #### [address] Protein,Urine Negative Normal Negative [facility] Comment on above: Order Comment: Name Collection Type:: Clean-Voided Midstream Performed By: #### U A #### [address] Specificy [place],Urine 1.011 Normal 1.001-1.030 [facility] Comment on above: Order Comment: Name Collection Type:: Clean-Voided Midstream Performed By: #### U A #### [address] Urobilinogen,Urine Normal Normal Normal [facility] Comment on above: Order Comment: Name Collection Type:: Clean-Voided Midstream Performed By: #### U A #### [address] XR abdomen 1Von 08-01-2021 XR abdomen 1V [facility] [place] [address] XRay Report Signed Patient: Areli Hawkins MR#: [id number] : 1945 Acct:[id number] Age/Sex: 75 / F ADM Date: 08/01/21 Loc: Room: [address] [place] [address] Type: ADM IN Attending Dr: Indio Puga [...] Harsh Pickett M.D.08/01/2021 8:52 AM Dictation Location: [place] [address] Transcribed By: JORGE 08/01/21851 Dictated By: Harsh Pickett MD 08/01/2150 Signed By: 08/01/21851 [facility] CBC AUTO DIFFon 07-31-2021 BASO # 0.0 103/ul Normal 0.0-0.1 [facility] Comment on above: Performed By: #### C BC #### [facility] [address] [place] [address] Dr. Millie Flores Basophils/100 WBC (Bld) 0.4 % Normal 0.2-2.0 [facility] Comment on above: Performed By: #### C BC #### [facility] [address] [place] [address] [address] Millie Flores EO # 0.2 103/ul Normal 0.0-0.7 [facility] Comment on above: Performed By: #### C BC #### [facility] [address] [place] [address] [address] Millie Flores Eosinophils/100 WBC (Bld) 2.2 % Normal 0.9-7.0 [facility] Comment on above: Performed By: #### C BC #### [facility] [address] [place] [address] [address] Millie Flores Erythrocyte distribution width (RBC) [Ratio] 13.9 % Normal 11.0-15.0 [facility] Comment on above: Performed By: #### C BC #### [facility] [address] [place] [address] [address] Millie Flores Hematocrit (Bld) [Volume fraction] 35.7 % Critically low 36.0-48.0 [facility] Comment on above: Performed By: #### C BC #### [facility] [address] [place] [address] Dr. Millie Flores Hemoglobin (Bld) [Mass/Vol] 11.2 g/dL Critically low 12.0-16.0 [facility] Comment on above: Performed By: #### C BC #### [facility] [address] [place] [address] Dr. Millie Flores IG # 0.04 10e3/ul Critically high 0.00-0.03 [facility] Comment on above: Performed By: #### C BC #### [facility] [address] [place] [address] Dr. Millie Flores IG % 0.5 % Normal 0.0-0.5 [facility] Comment on above: Performed By: #### C BC #### [facility] [address] [place] [address] Dr. Millie Flores LYMPH # 2.3 103/ul Normal 1.2-3.8 [facility] Comment on above: Performed By: #### C BC #### [facility] [address] [place] [address] Dr. Millie Flores Lymphocytes/100 WBC (Bld) 31.7 % Normal 20.5-60.0 [facility] Comment on above: Performed By: #### C BC #### [facility] [address] [place] [address] Dr. Millie Flores MANUAL DIFF REQ NO Normal [facility] Comment on above: Performed By: #### C BC #### [facility] [address] [place] [address] Dr. Millie Flores MCH (RBC) [Entitic mass] 31.0 pg Normal 26.7-34.0 [facility] Comment on above: Performed By: #### C BC #### [facility] [address] [place] [address] Dr. Millie Flores MCHC (RBC) [Mass/Vol] 31.4 g/dL Normal 29.9-35.2 [facility] Comment on above: Performed By: #### C BC #### [facility] [address] [place] [address] [address] Millie Flores MCV (RBC) [Entitic vol] 98.9 fL Normal 81.0-99.0 [facility] Comment on above: Performed By: #### C BC #### [facility] [address] [place] [address] [address] Millie Flores MONO # 0.9 103/ul Critically high 0.3-0.8 [facility] Comment on above: Performed By: #### C BC #### [facility] [address] [address] [address] Millie Flores Monocytes/100 WBC (Bld) 12.5 % Critically high 1.7-12.0 [facility] Comment on above: Performed By: #### C BC #### [facility] [address] [place] [address] Dr. Millei Flores NEUT # 3.8 103/ul Normal 1.4-6.5 [facility] Comment on above: Performed By: #### C BC #### [facility] [address] [place] [address] Dr. Millie Flores Neutrophils/100 WBC (Bld) 52.7 % Normal 43.0-75.0 [facility] Comment on above: Performed By: #### C BC #### [facility] [address] [place] [address] Dr. Millie Flores Platelet mean volume (Bld) [Entitic vol] 10.2 fL Normal 9.5-13.5 [facility] Comment on above: Performed By: #### C BC #### [facility] [address] [place] [address] Dr. Millie Flores PLT 165 103/ul Normal 150-450 [facility] Comment on above: Performed By: #### C BC #### [facility] [address] [place] [address] Dr. Millie Flores RBC 3.61 106/ul Critically low 4.20-5.40 [facility] Comment on above: Performed By: #### C BC #### [facility] [address] [place] [address] Dr. Millie Flores WBC 7.3 103/ul Normal 4.0-11.0 [facility] Comment on above: Performed By: #### C BC #### [facility] [address] [place] [address] Dr. Millie Flores CULTURE URINEon 07-31-2021 CULTURE [...] F Trimethoprim/Sulfametho xazole <=20 S F Normal [facility] Comment on above: Performed By: #### B MP #### [facility] [address] [place] [address] Dr. Millei Flores PROF CHEM 8 (BAS METB)on Anion gap [Moles/Vol] 11.5 mmol/L Normal [facility] Comment on above: Performed By: #### B MP #### [facility] [address] [place] [address] Dr. Millie Flores Calcium [Mass/Vol] 8.2 mg/dL Critically low 8.4-10.2 [facility] Comment on above: Performed By: #### B MP #### [facility] [address] [place] [address] Dr. Millie Flores Chloride [Moles/Vol] 109 mmol/L Critically high 98-107 [facility] Comment on above: Performed By: #### B MP #### [facility] [address] [place] [address] Dr. Millie Flores CO2 [Moles/Vol] 26.4 mmol/L Normal 22.0-30.0 [facility] Comment on above: Performed By: #### B MP #### [facility] [address] [address] [address] Millie Flores Creatinine [Mass/Vol] 0.69 mg/dL Normal 0.52-1.04 [facility] Comment on above: Performed By: #### B MP #### [facility] [address] [address] [address] Millie Flores EGFR-AF YEMENI >60 Normal >=60 [facility] Comment on above: Performed By: #### B MP #### [facility] [address] [address] [address] Millie Flores EGFR-NON AF YEMENI >60 Normal >=60 [facility] Comment on above: Performed By: #### B MP #### [facility] [address] [address] [address] Millie Flores Glucose [Mass/Vol] 92 mg/dL Normal 74-106 [facility] Comment on above: Performed By: #### B MP #### [facility] [address] [address] [address] Millie Flores Potassium [Moles/Vol] 3.9 mmol/L Normal 3.4-5.0 [facility] Comment on above: Performed By: #### B MP #### [facility] [address] [address] [address] Millie Flores Sodium [Moles/Vol] 143 mmol/L Normal 137-145 [facility] Comment on above: Performed By: #### B MP #### [facility] [address] [address] [address] Millie Flores Urea nitrogen [Mass/Vol] 8.0 mg/dL Normal 7.0-17.0 [facility] Comment on above: Performed By: #### B MP #### [facility] [address] [address] [address] Millie Flores Urea nitrogen/Creatinine [Mass ratio] 11.6 mg/mg Normal [facility] Comment on above: Performed By: #### B MP #### [facility] [address] [address] [address] Millie Flores CBC AUTO DIFFon 07-30-2021 BASO # 0.1 103/ul Normal 0.0-0.1 [facility] Comment on above: Performed By: #### C BC #### [facility] [address] [place] [address] Dr. Millie Flores Basophils/100 WBC (Bld) 0.4 % Normal 0.2-2.0 [facility] Comment on above: Performed By: #### C BC #### [facility] [address] [place] [address] Dr. Millie Flores EO # 0.0 103/ul Normal 0.0-0.7 [facility] Comment on above: Performed By: #### C BC #### [facility] [address] [place] [address] Dr. Millie Flores Eosinophils/100 WBC (Bld) 0.3 % Critically low 0.9-7.0 [facility] Comment on above: Performed By: #### C BC #### [facility] [address] [place] [address] Dr. Millie Flores Erythrocyte distribution width (RBC) [Ratio] 13.5 % Normal 11.0-15.0 [facility] Comment on above: Performed By: #### C BC #### [facility] [address] [place] [address] Dr. Millie Flores Hematocrit (Bld) [Volume fraction] 41.5 % Normal 36.0-48.0 [facility] Comment on above: Performed By: #### C BC #### [facility] [address] [place] [address] Dr. Millie Flores Hemoglobin (Bld) [Mass/Vol] 13.7 g/dL Normal 12.0-16.0 [facility] Comment on above: Performed By: #### C BC #### [facility] [address] [place] [address] Dr. Millie Flores IG # 0.05 10e3/ul Critically high 0.00-0.03 [facility] Comment on above: Performed By: #### C BC #### [facility] [address] [place] [address] Dr. Millie Flores IG % 0.4 % Normal 0.0-0.5 [facility] Comment on above: Performed By: #### C BC #### [facility] [address] [place] [address] Dr. Millie Flores LYMPH # 1.8 103/ul Normal 1.2-3.8 [facility] Comment on above: Performed By: #### C BC #### [facility] [address] [place] [address] Dr. Millie Flores Lymphocytes/100 WBC (Bld) 14.7 % Critically low 20.5-60.0 [facility] Comment on above: Performed By: #### C BC #### [facility] [address] [place] [address] Dr. Millie Flores MANUAL DIFF REQ NO Normal [facility] Comment on above: Performed By: #### C BC #### [facility] [address] [place] [address] Dr. Millie Flores MCH (RBC) [Entitic mass] 31.5 pg Normal 26.7-34.0 [facility] Comment on above: Performed By: #### C BC #### [facility] [address] [place] [address] Dr. Millie Flores MCHC (RBC) [Mass/Vol] 33.0 g/dL Normal 29.9-35.2 [facility] Comment on above: Performed By: #### C BC #### [facility] [address] [place] [address] Dr. Millie Flores MCV (RBC) [Entitic vol] 95.4 fL Normal 81.0-99.0 [facility] Comment on above: Performed By: #### C BC #### [facility] [address] [place] [address] Dr. Millie Flores MONO # 1.5 103/ul Critically high 0.3-0.8 [facility] Comment on above: Performed By: #### C BC #### [facility] [address] [place] [address] Dr. Millie Flores Monocytes/100 WBC (Bld) 12.7 % Critically high 1.7-12.0 [facility] Comment on above: Performed By: #### C BC #### [facility] [address] [place] [address] Dr. Millie Flores NEUT # 8.7 103/ul Critically high 1.4-6.5 [facility] Comment on above: Performed By: #### C BC #### [facility] [address] [place] [address] Dr. Millie Flores Neutrophils/100 WBC (Bld) 71.5 % Normal 43.0-75.0 [facility] Comment on above: Performed By: #### C BC #### [facility] [address] [place] [address] Dr. Millie Flores Platelet mean volume (Bld) [Entitic vol] 10.2 fL Normal 9.5-13.5 [facility] Comment on above: Performed By: #### C BC #### [facility] [address] [place] [address] Dr. Millie Flores PLT 218 103/ul Normal 150-450 [facility] Comment on above: Performed By: #### C BC #### [facility] [address] [place] [address] Dr. Millie Flores RBC 4.35 106/ul Normal 4.20-5.40 [facility] Comment on above: Performed By: #### C BC #### [facility] [address] [place] [address] Dr. Millie Flores WBC 12.1 103/ul Critically high 4.0-11.0 [facility] Comment on above: Performed By: #### C BC #### [facility] [address] [place] [address] Dr. Millie Flores PROF CHEM 8 (BAS METB)on Anion gap [Moles/Vol] 13.9 mmol/L Normal [facility] Comment on above: Performed By: #### C BC #### [facility] [address] [place] [address] Dr. Millie Flores Calcium [Mass/Vol] 8.8 mg/dL Normal 8.4-10.2 [facility] Comment on above: Performed By: #### C BC #### [facility] [address] [address] [address] Millie Flores Chloride [Moles/Vol] 105 mmol/L Normal 98-107 [facility] Comment on above: Performed By: #### C BC #### [facility] [address] [address] [address] Millie Flores CO2 [Moles/Vol] 25.7 mmol/L Normal 22.0-30.0 [facility] Comment on above: Performed By: #### C BC #### [facility] [address] [place] [address] Dr. Millie Flores Creatinine [Mass/Vol] 0.73 mg/dL Normal 0.52-1.04 [facility] Comment on above: Performed By: #### C BC #### [facility] [address] [place] [address] Dr. Millie Flores EGFR-AF YEMENI >60 Normal >=60 [facility] Comment on above: Performed By: #### C BC #### [facility] [address] [address] [address] Millie Flores EGFR-NON AF YEMENI >60 Normal >=60 [facility] Comment on above: Performed By: #### C BC #### [facility] [address] [address] [address] Millie Flores Glucose [Mass/Vol] 120 mg/dL Critically high 74-106 [facility] Comment on above: Performed By: #### C BC #### [facility] [address] [address] [address] Millie Flores Potassium [Moles/Vol] 3.6 mmol/L Normal 3.4-5.0 [facility] Comment on above: Performed By: #### C BC #### [facility] [address] [address] [address] Millie Flores Sodium [Moles/Vol] 141 mmol/L Normal 137-145 [facility] Comment on above: Performed By: #### C BC #### [facility] [address] [address] [address] Millie Flores Urea nitrogen [Mass/Vol] 13.0 mg/dL Normal 7.0-17.0 [facility] Comment on above: Performed By: #### C BC #### [facility] [address] [address] [address] Millie Flores Urea nitrogen/Creatinine [Mass ratio] 17.8 mg/mg Normal [facility] Comment on above: Performed By: #### C BC #### [facility] [address] [address] [address] Millie Flores XR ABD FLAT UP_PA [...] GEOVANI SELBY Date: 2021-07-30 09:44 Normal [facility] AMYLASEon 07-29-2021 Amylase [Catalytic activity/Vol] 105 U/L Normal 31-110 [facility] Comment on above: Performed By: #### C BC #### [facility] [address] [place] [address] Dr. Millie Flores CBC W MANUAL DIFFon 07-29-20 21 ATYPICAL LYMPH # Normal [facility] Comment on above: Performed By: #### C BCMAN #### [facility] [address] [address] [address] Millie Flores ATYPICAL LYMPH % Normal [facility] Comment on above: Performed By: #### C BCMAN #### [facility] [address] [address] [address] Millie Flores BAND # Normal 0.0-0.3 [facility] Comment on above: Performed By: #### C BCMEGAN #### [facility] [address] [place] [address] Dr. Millie Flores BAND % Normal 0-5 [facility] Comment on above: Performed By: #### C BCMAN #### [facility] [address] [place] [address] Dr. Millie Flores BASOM # 0.00 103/ul Normal 0.00-0.10 [facility] Comment on above: Performed By: #### C BCMEGAN #### [facility] [address] [place] [address] Dr. Millie Flores BASOM % 0.0 % Critically low 0.2-2.0 [facility] Comment on above: Performed By: #### C BCMEGAN #### [facility] [address] [place] [address] Dr. Millie Flores BLAST # Normal [facility] Comment on above: Performed By: #### C GEOFFREY #### [facility] [address] [place] [address] Dr. Millie Flores BLAST % Normal [facility] Comment on above: Performed By: #### C BCMEGAN #### [facility] [address] [place] [address] Dr. Millie Flores CORRECTED WBC Normal 4.0-11.0 [facility] Comment on above: Performed By: #### C BCMEGAN #### [facility] [address] [place] [address] Dr. Millie Flores EOS # 0.00 103/ul Normal 0.00-0.70 [facility] Comment on above: Performed By: #### C BCMEGAN #### [facility] [address] [place] [address] Dr. Millie Flores EOS% 0.0 % Critically low 0.9-7.0 [facility] Comment on above: Performed By: #### C BCMEGAN #### [facility] [address] [place] [address] Dr. Millie Flores HCT 44.2 % Normal 36.0-48.0 [facility] Comment on above: Performed By: #### C BCMEGAN #### [facility] [address] [address] [address] Mlilie Flores HGB 14.6 g/dl Normal 12.0-16.0 [facility] Comment on above: Performed By: #### C BCMEGAN #### [facility] [address] [address] [address] Millie Flores LYMPHM # 1.93 103/ul Normal 1.20-3.80 [facility] Comment on above: Performed By: #### C GEOFFREY #### [facility] [address] [address] [address] Millie Flores LYMPHM% 11.0 % Critically low 20.5-60.0 [facility] Comment on above: Performed By: #### C EGOFFREY #### [facility] [address] [place] [address] Dr. Millie Flores MCH 31.2 pg Normal 26.7-34.0 [facility] Comment on above: Performed By: #### C GEOFFREY #### [facility] [address] [place] [address] Dr. Millie Flores MCHC 33.0 g/dl Normal 29.9-35.2 [facility] Comment on above: Performed By: #### C GEOFFREY #### [facility] [address] [place] [address] Dr. Millie Flores MCV 94.4 fL Normal 81.0-99.0 [facility] Comment on above: Performed By: #### C BCMEGAN #### [facility] [address] [place] [address] Dr. Millie Flores METAMYELOCYTE # Normal [facility] Comment on above: Performed By: #### C BCMEGAN #### [facility] [address] [place] [address] Dr. Millie Flores METAMYELOCYTE % Normal [facility] Comment on above: Performed By: #### C GEOFFREY #### [facility] [address] [place] [address] Dr. Millie Flores MONOM# 1.57 103/ul Critically high 0.30-0.80 [facility] Comment on above: Performed By: #### C GEOFFREY #### [facility] [address] [place] [address] Dr. Millie Flores MONOM% 9.0 % Normal 1.7-12.0 [facility] Comment on above: Performed By: #### C GEFOFREY #### [facility] [address] [place] [address] Dr. Millie Flores MPV 9.9 fL Normal 9.5-13.5 [facility] Comment on above: Performed By: #### C BCMEGAN #### [facility] [address] [place] [address] Dr. Millie Flores MYELOCYTE # Normal [facility] Comment on above: Performed By: #### C GEOFFREY #### [facility] [address] [place] [address] Dr. Millie Flores MYELOCYTE % Normal [facility] Comment on above: Performed By: #### C GEOFFREY #### [facility] [address] [place] [address] Dr. Millie Flores NRBC Normal [facility] Comment on above: Performed By: #### C GEOFFREY #### [facility] [address] [place] [address] Dr. Millie Flores PLT 258 103/ul Normal 150-450 [facility] Comment on above: Performed By: #### C GEOFFREY #### [facility] [address] [place] [address] Dr. Millie Flores RBC 4.68 106/ul Normal 4.20-5.40 [facility] Comment on above: Performed By: #### C GEOFFREY #### [facility] [address] [place] [address] Dr. Millie Flores RDW 13.5 % Normal 11.0-15.0 [facility] Comment on above: Performed By: #### C GEOFFREY #### [facility] [address] [place] [address] Dr. Millie Flores SEG # 14.00 103/ul Critically high 1.40-6.50 [facility] Comment on above: Performed By: #### C BCMAN #### [facility] [address] [place], [place] [address] Dr. Millie Flores SEG % 80.0 % Critically high 43.0-75.0 [facility] Comment on above: Performed By: #### C BCMAN #### [facility] [address] [place], [place] [address] Dr. Millie Flores WBC 17.5 103/ul Critically high 4.0-11.0 [facility] Comment on above: Performed By: #### C BCMAN #### [facility] [address] [place], [place] [address] ABD/PELVIS WO CONon [...] MORENO JORGENSEN Date: 2021-07-29 18:25 Normal [facility] Covid-19 PCR (CVDTB)on SARS-CoV-2 (COVID-19) RNA CHETAN+probe Ql (Unsp spec) Not detected Normal NOT DETECTED [facility] Comment on above: Result Comment: This test is not yet approved or cleared by the [place] FDA. When there are no FDA-approved or cleared tests available, and other criteria are met, FDA can make tests available under an emergency access mechanism called an Emergency Use Authorization (EUA). The EUA for this test is supported by the Pain Management Physician of Health and Human Service's (HHS's) declaration [...] SARS-CoV-2. Performed By: #### C VDTBH #### [facility] [address] [address] [address] Millie Flores ER URINE PROFILEon 1 Bilirubin Ql (U) Negative Normal NEGATIVE [facility] Comment on above: Performed By: #### U MICRO, ERUR #### [facility] [address] [place], [place] [address] Dr. Millie Flores Clarity (U) CLEAR Normal CLEAR [facility] Comment on above: Performed By: #### U MICRO, ERUR #### [facility] [address] [address] [address] Millie Flores Color (U) YELLOW Normal YELLOW [facility] Comment on above: Performed By: #### U MICRO, ERUR #### [facility] [address] [address] [address] Millie MOELLER A micrscopic examination will be performed if indicated. Normal [facility] Comment on above: Performed By: #### U MICRO, ERUR #### [facility] [address] [address] [address] Millie Flores Glucose Ql (U) Negative Normal NEGATIVE [facility] Comment on above: Performed By: #### U MICRO, ERUR #### [facility] [address] [place] [address] Dr. Millie Flores Hemoglobin Ql (U) TRACE-INTACT Abnormal NEGATIVE [facility] Comment on above: Performed By: #### U MICRO, ERUR #### [facility] [address] [place] [address] Dr. Millie Flores Ketones Ql (U) TRACE Abnormal NEGATIVE [facility] Comment on above: Performed By: #### U MICRO, ERUR #### [facility] [address] [address] [address] Millie Flores LEUKOCYTES SMALL Abnormal NEGATIVE [facility] Comment on above: Performed By: #### U MICRO, ERUR #### [facility] [address] [address] [address] Millie Flores Nitrite Ql (U) Negative Normal NEGATIVE [facility] Comment on above: Performed By: #### U MICRO, ERUR #### [facility] [address] [address] [address] Millie Flores pH (U) 6.5 [pH] Normal 5-9 [facility] Comment on above: Performed By: #### U MICRO, ERUR #### [facility] [address] [place] [address] Dr. Millie Flores SPEC GRAVITY 1.020 Normal 1.005-<=1.02 5 [facility] Comment on above: Performed By: #### U MICRO, ERUR #### [facility] [address] [place] [address] Dr. Millie Flores UA PROTEIN TRACE Normal NEGATIVE/ TRACE [facility] Comment on above: Performed By: #### U MICRO, ERUR #### [facility] [address] [place] [address] Dr. Millie Flores UR MICRO IND INDICATED Normal [facility] Comment on above: Performed By: #### U MICRO, ERUR #### [facility] [address] [place] [address] Dr. Millie Flores Urobilinogen Qn (U) 1.0 {Robert'U}/dL Normal 0.2 - 1. 0 [facility] Comment on above: Performed By: #### U MICRO, ERUR #### [facility] [address] [place] [address] Dr. Millie Flores LIPASEon 07-29-2021 Lipase [Catalytic activity/Vol] 123.0 U/L Normal 23.0-300.0 [facility] Comment on above: Performed By: #### C BC #### [facility] [address] [place] [address] Dr. Millie Flores PROF 14(COMP METB)on 021 Albumin [Mass/Vol] 3.9 g/dL Normal 3.5-5.0 [facility] Comment on above: Performed By: #### C BC #### [facility] [address] [place] [address] Dr. Millie Flores Albumin/Globulin [Mass ratio] 1.1 {ratio} Normal [facility] Comment on above: Performed By: #### C BC #### [facility] [address] [place] [address] Dr. Millie Flores ALP [Catalytic activity/Vol] 89 U/L Normal 38-126 [facility] Comment on above: Performed By: #### C BC #### [facility] [address] [place] [address] Dr. Millie Flores ALT [Catalytic activity/Vol] 17 U/L Normal 9-52 [facility] Comment on above: Performed By: #### C BC #### [facility] [address] [address] [address] Millie Flores Anion gap [Moles/Vol] 12.3 mmol/L Normal [facility] Comment on above: Performed By: #### C BC #### [facility] [address] [address] [address] Millie Flores AST [Catalytic activity/Vol] 21 U/L Normal 14-36 [facility] Comment on above: Performed By: #### C BC #### [facility] [address] [address] [address] Millie Flores Bilirubin [Mass/Vol] 0.6 mg/dL Normal 0.2-1.3 [facility] Comment on above: Performed By: #### C BC #### [facility] [address] [address] [address] Millie Flores Calcium [Mass/Vol] 9.7 mg/dL Normal 8.4-10.2 [facility] Comment on above: Performed By: #### C BC #### [facility] [address] [address] [address] Millie Flores Chloride [Moles/Vol] 100 mmol/L Normal 98-107 [facility] Comment on above: Performed By: #### C BC #### [facility] [address] [address] [address] Millie Flores CO2 [Moles/Vol] 26.7 mmol/L Normal 22.0-30.0 [facility] Comment on above: Performed By: #### C BC #### [facility] [address] [address] [address] Millie Flores Creatinine [Mass/Vol] 0.95 mg/dL Normal 0.52-1.04 [facility] Comment on above: Performed By: #### C BC #### [facility] [address] [address] [address] Millie Flores EGFR-AF YEMENI >60 Normal >=60 [facility] Comment on above: Performed By: #### C BC #### [facility] [address] [address] [address] Millie Flores EGFR-NON AF YEMENI 58 mL/min/1.73m2 Critically low >=60 [facility] Comment on above: Performed By: #### C BC #### [facility] [address] [address] [address] Millie Flores Globulin (S) [Mass/Vol] 3.7 g/dL Normal [facility] Comment on above: Performed By: #### C BC #### [facility] [address] [address] [address] Millie Flores Glucose [Mass/Vol] 118 mg/dL Critically high 74-106 [facility] Comment on above: Performed By: #### C BC #### [facility] [address] [address] [address] Millie Flores Potassium [Moles/Vol] 3.0 mmol/L Critically low 3.4-5.0 [facility] Comment on above: Performed By: #### C BC #### [facility] [address] [address] [address] Millie Flores Protein [Mass/Vol] 7.6 g/dL Normal 6.1-8.2 [facility] Comment on above: Performed By: #### C BC #### [facility] [address] [address] [address] Millie Flores Sodium [Moles/Vol] 136 mmol/L Critically low 137-145 [facility] Comment on above: Performed By: #### C BC #### [facility] [address] [address] [address] Millie Flores Urea nitrogen [Mass/Vol] 14.0 mg/dL Normal 7.0-17.0 [facility] Comment on above: Performed By: #### C BC #### [facility] [id number] Millie Flores Urea nitrogen/Creatinine [Mass ratio] 14.7 mg/mg Normal [facility] Comment on above: Performed By: #### C BC #### [facility] [address] [place] [address] Dr. Millie Flores URINE MICROSCOPIC ONLYon BACTERIA TRACE Abnormal NONE SEEN [facility] Comment on above: Performed By: #### U MICRO, ERUR #### [facility] [address] [place] [address] Dr. Millie Flores Bacteria identified Cx Nom (U) INDICATED Normal [facility] Comment on above: Performed By: #### U MICRO, ERUR #### [facility] [address] [place] [address] Dr. Millie Flores CAST NONE SEEN Normal NONE SEEN [facility] Comment on above: Performed By: #### U MICRO, ERUR #### [facility] [address] [place] [address] Dr. Millie Flores Crystals LM Nom (Urine sed) NONE SEEN Normal NONE SEEN [facility] Comment on above: Performed By: #### U MICRO, ERUR #### [facility] [address] [place] [address] Dr. Millie Flores Epithelial cells LM Ql (Urine sed) FEW Abnormal NONE SEEN /RARE [facility] Comment on above: Performed By: #### U MICRO, ERUR #### [facility] [address] [place] [address] Dr. Millie Flores MUCOUS SMALL Abnormal NONE SEEN [facility] Comment on above: Performed By: #### U MICRO, ERUR #### [facility] [address] [place] [address] Dr. Millie Flores RBC 0-2 Normal 0-2 [facility] Comment on above: Performed By: #### U MICRO, ERUR #### [facility] [address] [place] [address] Dr. Millie Flores WBC 2-5 Abnormal NONE SEEN [facility] Comment on above: Performed By: #### U MICRO, ERUR #### [facility] [address] [place] [address] Dr. Millie Flores CULTURE URINEon 07-21-2021 CULTURE [...] Trimethoprim/Sulfametho xazole <=20 S F Normal [facility] Comment on above: Performed By: #### B MP #### [facility] [address] [place] [address] Dr. Millie Flores CBC AUTO DIFFon 07-19-2021 BASO # 0.1 103/ul Normal 0.0-0.1 [facility] Comment on above: Performed By: #### C BC #### [facility] [address] [place] [address] Dr. Millie Flores Basophils/100 WBC (Bld) 0.4 % Normal 0.2-2.0 [facility] Comment on above: Performed By: #### C BC #### [facility] [address] [place] [address] Dr. Millie Flores EO # 0.1 103/ul Normal 0.0-0.7 [facility] Comment on above: Performed By: #### C BC #### [facility] [address] [place] [address] Dr. Millie Flores Eosinophils/100 WBC (Bld) 0.9 % Normal 0.9-7.0 [facility] Comment on above: Performed By: #### C BC #### [facility] [address] [place] [address] Dr. Millie Flores Erythrocyte distribution width (RBC) [Ratio] 13.9 % Normal 11.0-15.0 [facility] Comment on above: Performed By: #### C BC #### [facility] [address] [place] [address] Dr. Millie Flores Hematocrit (Bld) [Volume fraction] 40.9 % Normal 36.0-48.0 [facility] Comment on above: Performed By: #### C BC #### [facility] [address] [place] [address] Dr. Millie Flores Hemoglobin (Bld) [Mass/Vol] 13.3 g/dL Normal 12.0-16.0 [facility] Comment on above: Performed By: #### C BC #### [facility] [address] [place] [address] Dr. Millie Flores IG # 0.05 10e3/ul Critically high 0.00-0.03 [facility] Comment on above: Performed By: #### C BC #### [facility] [address] [place] [address] Dr. Millie Flores IG % 0.4 % Normal 0.0-0.5 [facility] Comment on above: Performed By: #### C BC #### [facility] [address] [place] [address] Dr. Millie Flores LYMPH # 2.7 103/ul Normal 1.2-3.8 [facility] Comment on above: Performed By: #### C BC #### [facility] [address] [place] [address] Dr. Millie Flores Lymphocytes/100 WBC (Bld) 20.2 % Critically low 20.5-60.0 [facility] Comment on above: Performed By: #### C BC #### [facility] [address] [place] [address] Dr. Millie Folres MANUAL DIFF REQ NO Normal [facility] Comment on above: Performed By: #### C BC #### [facility] [address] [place] [address] Dr. Millie Flores MCH (RBC) [Entitic mass] 31.0 pg Normal 26.7-34.0 [facility] Comment on above: Performed By: #### C BC #### [facility] [address] [place] [address] Dr. Millie Flores MCHC (RBC) [Mass/Vol] 32.5 g/dL Normal 29.9-35.2 [facility] Comment on above: Performed By: #### C BC #### [facility] [address] [address] [address] Millie Flores MCV (RBC) [Entitic vol] 95.3 fL Normal 81.0-99.0 [facility] Comment on above: Performed By: #### C BC #### [facility] [address] [address] [address] Millie Flores MONO # 1.5 103/ul Critically high 0.3-0.8 [facility] Comment on above: Performed By: #### C BC #### [facility] [address] [address] [address] Millie Flores Monocytes/100 WBC (Bld) 11.1 % Normal 1.7-12.0 [facility] Comment on above: Performed By: #### C BC #### [facility] [address] [address] [address] Millie Flores NEUT # 8.8 103/ul Critically high 1.4-6.5 [facility] Comment on above: Performed By: #### C BC #### [facility] [address] [address] [address] Millie Flores Neutrophils/100 WBC (Bld) 67.0 % Normal 43.0-75.0 [facility] Comment on above: Performed By: #### C BC #### [facility] [address] [address] [address] Millie Flores Platelet mean volume (Bld) [Entitic vol] 10.3 fL Normal 9.5-13.5 [facility] Comment on above: Performed By: #### C BC #### [facility] [address] [address] [address] Millie Flores PLT 215 103/ul Normal 150-450 [facility] Comment on above: Performed By: #### C BC #### [facility] [address] [address] [address] Millie Flores RBC 4.29 106/ul Normal 4.20-5.40 [facility] Comment on above: Performed By: #### C BC #### [facility] [address] [place] [address] Dr. Millie Flores WBC 13.1 103/ul Critically high 4.0-11.0 [facility] Comment on above: Performed By: #### C BC #### [facility] [address] [place] [address] Dr. Millie Flores ER URINE PROFILEon 1 Bilirubin Ql (U) Negative Normal NEGATIVE [facility] Comment on above: Performed By: #### C BC #### [facility] [address] [place] [address] Dr. Millie Flores Clarity (U) CLEAR Normal CLEAR [facility] Comment on above: Performed By: #### C BC #### [facility] [address] [place] [address] Dr. Millie Flores Color (U) LT. YELLOW Normal YELLOW [facility] Comment on above: Performed By: #### C BC #### [facility] [address] [place] [address] Dr. Millie MOELLER A micrscopic examination will be performed if indicated. Normal [facility] Comment on above: Performed By: #### C BC #### [facility] [address] [place] [address] Dr. Millie Flores Glucose Ql (U) Negative Normal NEGATIVE [facility] Comment on above: Performed By: #### C BC #### [facility] [address] [place] [address] Dr. Millie Flores Hemoglobin Ql (U) Negative Normal NEGATIVE [facility] Comment on above: Performed By: #### C BC #### [facility] [address] [place] [address] Dr. Millie Flores Ketones Ql (U) TRACE Abnormal NEGATIVE [facility] Comment on above: Performed By: #### C BC #### [facility] [address] [place] [address] Dr. Millie Flores LEUKOCYTES MODERATE Abnormal NEGATIVE [facility] Comment on above: Performed By: #### C BC #### [facility] [address] [address] [address] Millie Flores Nitrite Ql (U) Positive Abnormal NEGATIVE [facility] Comment on above: Performed By: #### C BC #### [facility] [address] [place] [address] Dr. Millie Flores pH (U) 7.5 [pH] Normal 5-9 [facility] Comment on above: Performed By: #### C BC #### [facility] [address] [place] [address] Dr. Millie Flores SPEC GRAVITY 1.015 Normal 1.005-<=1.02 5 [facility] Comment on above: Performed By: #### C BC #### [facility] [address] [place] [address] Dr. Millie Flores UA PROTEIN Negative Normal NEGATIVE/ TRACE [facility] Comment on above: Performed By: #### C BC #### [facility] [address] [place] [address] Dr. Millie Flores UR MICRO IND INDICATED Normal [facility] Comment on above: Performed By: #### C BC #### [facility] [address] [place] [address] Dr. Millie Flores Urobilinogen Qn (U) 1.0 {Robert'U}/dL Normal 0.2 - 1. 0 [facility] Comment on above: Performed By: #### C BC #### [facility] [address] [place] [address] Dr. Millie Flores PROF CHEM 8 (BAS METB)on Anion gap [Moles/Vol] 14.8 mmol/L Normal [facility] Comment on above: Performed By: #### B MP #### [facility] [address] [place] [address] Dr. Millie Flores Calcium [Mass/Vol] 9.2 mg/dL Normal 8.4-10.2 [facility] Comment on above: Performed By: #### B MP #### [facility] [address] [place] [address] Dr. Millie Flores Chloride [Moles/Vol] 103 mmol/L Normal 98-107 [facility] Comment on above: Performed By: #### B MP #### [facility] [address] [address] [address] Millie Flores CO2 [Moles/Vol] 24.0 mmol/L Normal 22.0-30.0 [facility] Comment on above: Performed By: #### B MP #### [facility] [address] [address] [address] Millie Flores Creatinine [Mass/Vol] 1.09 mg/dL Critically high 0.52-1.04 [facility] Comment on above: Performed By: #### B MP #### [facility] [address] [address] [address] Millie Flores EGFR-AF YEMENI 60 mL/min/1.73m2 Normal >=60 [facility] Comment on above: Performed By: #### B MP #### [facility] [address] [address] [address] Millie Flores EGFR-NON AF YEMENI 49 mL/min/1.73m2 Critically low >=60 [facility] Comment on above: Performed By: #### B MP #### [facility] [address] [address] [address] Millie Flores Glucose [Mass/Vol] 116 mg/dL Critically high 74-106 [facility] Comment on above: Performed By: #### B MP #### [facility] [address] [address] [address] Millie Flores Potassium [Moles/Vol] 3.8 mmol/L Normal 3.4-5.0 [facility] Comment on above: Performed By: #### B MP #### [facility] [address] [address] [address] Millie Flores Sodium [Moles/Vol] 138 mmol/L Normal 137-145 [facility] Comment on above: Performed By: #### B MP #### [facility] [address] [address] [address] Millie Flores Urea nitrogen [Mass/Vol] 22.0 mg/dL Critically high 7.0-17.0 [facility] Comment on above: Performed By: #### B MP #### [facility] [address] [place] [address] Dr. Millie Flores Urea nitrogen/Creatinine [Mass ratio] 20.2 mg/mg Normal [facility] Comment on above: Performed By: #### B MP #### [facility] [address] [place] [address] Dr. Millie Flores URINE MICROSCOPIC ONLYon BACTERIA LARGE Abnormal NONE SEEN [facility] Comment on above: Performed By: #### C BC #### [facility] [address] [place] [address] Dr. Millie Flores Bacteria identified Cx Nom (U) INDICATED Normal [facility] Comment on above: Performed By: #### C BC #### [facility] [address] [place] [address] Dr. Millie Flores CAST NONE SEEN Normal NONE SEEN [facility] Comment on above: Performed By: #### C BC #### [facility] [address] [place] [address] Dr. Millie Flores Crystals LM Nom (Urine sed) NONE SEEN Normal NONE SEEN [facility] Comment on above: Performed By: #### C BC #### [facility] [address] [place] [address] Dr. Millie Flores Epithelial cells LM Ql (Urine sed) RARE Normal NONE SEEN /RARE [facility] Comment on above: Performed By: #### C BC #### [facility] [address] [place] [address] Dr. Millie Flores MUCOUS NONE SEEN Normal NONE SEEN [facility] Comment on above: Performed By: #### C BC #### [facility] [address] [place] [address] Dr. Millie Flores RBC NONE SEEN Abnormal 0-2 [facility] Comment on above: Performed By: #### C BC #### [facility] [address] [place] [address] Dr. Millie Flores WBC 10-20 Abnormal NONE SEEN [facility] Comment on above: Performed By: #### C BC #### [facility] [address] [id number] Millie Floers XR ABD FLAT_UPon 07-19-2021 XR ABD FLAT_UP [...] by: HANG MACIAS Date: 2021-07-19 00:50 Normal [facility] XR pre/post mri xrayon 05-08 XR pre/post mri xray [facility] Main [place] [address] [place] [address] MRI Report Signed Patient: Areli Hawkins MR#: [id number] : 1945 Acct:[id number] Age/Sex: 75 / F ADM Date: 05/08/21 Loc: [facility] Room: Type: [facility] Attending Dr: Nohelia Kline PA-C Ordering Provider: Nohelia Kline PAC Date of Service: 05/08/21 MR/MR lumbar spine wo con: R20.2 ([id number]) XR/XR pre/post mri xray: R20.2 Copies to: Nohelia Kline [facility] MR lumbar spine wo con, XR [...] left neural foraminal narrowing. Impression dictated by: mEery Shine M.D.05/08/2021 2:52 PM Dictation Location: [place] [address] Transcribed By: [facility] 05/08/21 8943 Dictated By: Emery Shine II, MD 05/08/21 1403 Signed By: 05/08/21 045 [facility] XR pre/post mri xrayon 02-03 XR pre/post mri xray [facility] Main [place] [address] [place] [address] MRI Report Signed Patient: Areli Hawkins MR#: [id number] : 1945 Acct:[id number] Age/Sex: 75 / F ADM Date: 02/03/21 [facility] Type: [facility] CLI Attending Dr: Moises Miguel MD Ordering Provider: Moises Miguel MD Date of Service: 02/03/21 MR/MR cervical spine wo con: R20.2 PARESTHESIA R29.9 HYPER REFLEXIA M17.12 CERVICAL SPNDY ([id number]) XR/XR pre/post mri xray: C SPINE Copies [...] Allan Salinas M.D.02/03/2021 5:00 PM Dictation Location: [place] [address] Transcribed By: [facility] 02/03/21 170 Dictated By: Allan Salinas DO 02/03/21 165 Signed By: 02/03/211699 [facility] Gastroenterology Office/Clin ic Noteon 09-20-2020 Gastroenterology Office/Clinic [...] Primary malignant neoplasm of prostate: Father. Normal [facility] Comment on above: Result Comment: Elec tronically Signed By: TEODORO BAÑUELOS, Cristal\.br\Date and Time Signed: 09/20/20 14:17 EST Coding Summary.on 09-06-2020 Coding Summary. CODING DATE: 020 FINAL [facility] STATUS: Home (Routine DC) PAYOR: Medicare ADMIT [...] Tatianna Burris Date Saved: 09/06/2020 08:17 am [facility] Priority Order-Blair 2019 Priority Order-STAT Comment Invalid Interpretation Code [facility] Comment on above: Result Comment: Rece ived Performed at: [facility] [address] [place], [place] [id number] MD Hilda Palmer Performed By: #### S ARS-CoV-2, CHETAN, [id number] ####[facility] [address] [place] [address] SARS-CoV-2, NAAon 09-02-2020 SARS-CoV-2 (COVID-19) RNA CHETAN+probe Ql (Resp) Not detected Invalid Interpretation Code Not Detected [facility] Comment on above: Result Comment: This nucleic acid amplification test was developed and its performance characteristics determined by [employer]. Nucleic acid amplification tests include PCR and [...] detected) result in this assay. Performed at: [facility] [address] [place], [place] [id number] MD Hilda Palmer Performed By: #### S ARS-CoV-2, CHETAN, [id number] #### [facility] [address] [place] [address] Consent for Procedure/Surger yon 08-26-2020 Consent for Procedure/Surgery [id number] D:127 Normal [facility] Physician Orderon 08-26-2020 Physician Order [id number] CD:127 Normal [facility] Ambulatory Clinical Summaryo n 08-25-2020 Ambulatory Clinical Summary {[id number] Normal [facility] Patient Educationon 08-25-20 20 Patient Education Family [...] ? Medicines taken, including vitamins, herbs, eyedrops, bvxt-zhs-labiunm medicines, and creams. ? Use of steroids [...] medicines have worn off. ? Only take cqbf-iqn-dlccfua or prescription medicines for pain, discomfort, or [...] Document Reviewed: 04/21/2009 ExitCare? Patient Information ?2014 [employer]. Heartburn Heartburn is a painful, burning sensation [...] caregiver may tell you to use certain inyp-vaj-zbjyxrc medicines (antacids, acid reducers) for mild heartburn. [...] not impro (more content not included)... Normal [facility] Physician Orderon 08-25-2020 Physician Order [id number] D:127 [facility] Physician Referralon 020 Physician Referral [id number] D:127 [facility] Vital Signs Date Time Vital Sign Value Performing Clinician Faci lity 08-27-2023 14:00-0500 Body height 162.56 cm [email or web address] Other [employer] Other 08-27-2023 14:00-0500 Body mass index (BMI) [Ratio] 42.36 kg/m2 [email or web address] Other [employer] Other 08-27-2023 14:00-0500 Body weight 111.95 kg [email or web address] Other [employer] Other 08-27-2023 14:00-0500 Diastolic blood pressure 79 mm[Hg] [email or web address] Other [employer] Other 08-27-2023 14:00-0500 Respiratory rate 20 /min [email or web address] Other [employer] Other 08-27-2023 14:00-0500 Systolic blood pressure 142 mm[Hg] [email or web address] Other [employer] Other 05-29-2023 10:30-0400 Body height 162.56 cm Anurag Ball Other [employer] Other 05-29-2023 10:30-0400 Body mass index (BMI) [Ratio] 41.23 kg/m2 Anurag Ball Other [employer] Other 05-29-2023 10:30-0400 Body weight 108.95 kg Anurag Ball Other [employer] Other 05-29-2023 10:30-0400 Diastolic blood pressure 76 mm[Hg] Anurag Ball Other [employer] Other 05-29-2023 10:30-0400 Respiratory rate 12 /min Anurag Ball Other [employer] Other 05-29-2023 10:30-0400 Systolic blood pressure 123 mm[Hg] Anurag Ball Other [employer] Other 05-03-2023 10:00-0400 Body height 162.56 cm Anurag Ball Other [employer] Other 05-03-2023 10:00-0400 Body mass index (BMI) [Ratio] 40.3 kg/m2 Anurag Ball Other [employer] Other 05-03-2023 10:00-0400 Body weight 106.51 kg Anurag Ball Other [employer] Other 05-03-2023 10:00-0400 Diastolic blood pressure 75 mm[Hg] Anurag Ball Other [employer] Other 05-03-2023 10:00-0400 Respiratory rate 12 /min Anurag Ball Other [employer] Other 05-03-2023 10:00-0400 Systolic blood pressure 120 mm[Hg] Anurag Ball Other [facility] [employer] Other 01-16-2022 11:55-0400 Body height 162.6 cm Marie Lea MD Work Phone: [facility] 01-16-2022 11:55-0400 Body weight 95.25 kg Marie Lea MD Work Phone: [facility] 01-16-2022 11:55-0400 Diastolic blood pressure 62 mm[Hg] Marie Lea MD Work Phone: [facility] 01-16-2022 11:55-0400 Heart rate 64 /min Marie Lea MD Work Phone: [facility] 01-16-2022 11:55-0400 Systolic blood pressure 150 mm[Hg] Marie Lea MD Work Phone: [facility] 10-05-2021 11:53-0500 Body height 162.56 cm Anurag Thornton Ball Work Phone: [facility] [address] [place] Work Phone: 10-05-2021 11:53-0500 Body mass index (BMI) [Ratio] 34.67 kg/m2 Anurag E Ball Work Phone: [facility] [address] [place] Work Phone: 10-05-2021 11:53-0500 Body surface area Derived from formula 1.96 m2 Anurag E Ball Work Phone: [facility] [address] [place] Work Phone: 10-05-2021 11:53-0500 Body weight 91.63 kg Anurag E Ball Work Phone: [facility] [address] [place] Work Phone: 10-05-2021 11:53-0500 Diastolic blood pressure 80 mm[Hg] Anurag E Ball Work Phone: [facility] [place] [address] [place] Work Phone: 10-05-2021 11:53-0500 Heart rate 69 /min Anurag Bolton Work Phone: [facility] [place] [address] [place] Work Phone: 10-05-2021 11:53-0500 Systolic blood pressure 127 mm[Hg] Anurag Norberto Oj Work Phone: [facility] [place] [address] [place] Work Phone: 06-22-2021 11:00-0400 Body height 162.56 cm Carlos Gong Other [employer] Other 06-22-2021 11:00-0400 Body mass index (BMI) [Ratio] 35.18 kg/m2 Carlos Gong Other [employer] Other 06-22-2021 11:00-0400 Body weight 92.99 kg Carlos Gong Other [employer] Other 06-22-2021 11:00-0400 Diastolic blood pressure 84 mm[Hg] Carlos Gong Other [employer] Other 06-22-2021 11:00-0400 Respiratory rate 18 /min Carlos Gong Other [employer] Other 06-22-2021 11:00-0400 Systolic blood pressure 138 mm[Hg] Carlos Gong Other [employer] Other Encounters Encounter Date Encounter Type Care Provider Facility Start: 10-01-2023 End: 10-01-2023 ambulatory Anurag Bolton Other [employer] Other Start: 10-01-2023 Telephone encounter Anurag [facility] Start: 09-10-2023 End: 09-10-2023 ambulatory Anurag Ball Other [employer] Other Start: 09-10-2023 Telephone encounter Anurag Bolton [facility] Start: 08-28-2023 End: 08-28-2023 ambulatory Anurag Ball Other [employer] Other Start: 08-28-2023 Telephone encounter Anurag Ball [facility] Start: 08-27-2023 End: 08-27-2023 ambulatory Anurag Ball Other [employer] Other Start: 08-27-2023 Office outpatient visit 15 minutes Anurag Ball [facility] Start: 08-06-2023 End: 08-06-2023 ambulatory Anurag Ball Other [employer] Other Start: 08-06-2023 Nursing evaluation o f patient and report Anurag Ball [facility] Start: 06-10-2023 End: 06-10-2023 ambulatory Anurag Ball Other [employer] Other Start: 06-10-2023 Telephone encounter Anurag Ball [facility] Start: 05-29-2023 End: 05-29-2023 ambulatory Anurag Ball Other [employer] Other Start: 05-29-2023 Office outpatient visit 15 minutes Anurag Ball [facility] Start: 05-06-2023 End: 05-06-2023 ambulatory Anurag Ball Other [employer] Other Start: 05-06-2023 Telephone encounter Anurag Ball [facility] Start: 05-03-2023 End: 05-03-2023 ambulatory Anurag Ball Other [employer] Other Start: 05-03-2023 Office outpatient visit 25 minutes Anurag Ball [facility] Start: 04-25-2023 End: 04-25-2023 ambulatory Anurag Ball Other [employer] Other Start: 04-25-2023 Telephone encounter [facility] Start: 02-01-2022 Telephone encounter Sabas Lea MD Work Phone: Neurology Comment on above: Results Start: 01-16-2022 End: 01-16-2022 Patient encounter procedure Marie Lea MD Work Phone: Neurology Comment on above: 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); Abnormal finding of blood chemistry, unspecified Start: 12-28-2021 End: 12-28-2021 ambulatory Carlos Gong Other [employer] Other Start: 12-28-2021 Office outpatient visit 15 minutes Carlos Gong [facility] Start: 12-23-2021 End: 12-23-2021 Adult health examination Anurag Bolton Other [employer] Other Start: 10-05-2021 Office outpatient visit 25 minutes Anurag Bolton Work Phone: [facility] [address] [place] Work Phone: Start: 09-07-2021 End: 09-08-[address] ROSI GONG Facility:[facility] Start: 08-30-2021 End: 08-30-[address] ROSI GONG Facility:[facility] Start: 07-29-2021 End: 07-31-2021 Evaluation and management of inpatient DR YARITZA COOK Facility:[facility] Start: 07-19-2021 End: 07-19-[address] ROSI GONG Facility:[facility] Start: 06-22-2021 Office outpatient ne w 45 minutes Carlos Gong [facility] Start: 09-22-2020 End: 09-23-[address] [...] Anurag Bolton Other Small intestine excision Tay Bolton Work Phone: Tonsillectomy Anurag moy Work Phone: Plan of Treatment Date Care Activity Detail Author Start: 01-16-2025 DIABETES SCREEN DIABETES SCREEN [facility] Start: 01-11-2023 Adult depression screening assessment DEPRESSION SCREENING [place] [facility] Start: 01-16-2022 End: 03-18-2022 CRYOGLOBULIN, QUAL, REFLEX TO CASSI AND IGG,A,M [facility] Work Phone: Comment on above: Expected: 01/16/2022 , Expires: 03/18/2022 Start: 09-23-2021 ADVANCE DIRECTIVE DISCUSSION ADVANCE DIRECTIVE DISCUSSION [facility] Start: 2012 BONE DENSITY BONE DENSITY [facility] Start: 2012 PNEUMOVAX AGE 65 AND OVER WITH 5YR LOOKBACK (#1) PNEUMOVAX AGE 65 AND OVER WITH 5YR LOOKBACK (#1) [facility] Start: 1997 SHINGRIX VACCINE (1 of 2) SHINGRIX VACCINE (1 of 2) [facility] Start: 1992 COLOGUARD (FIT-DNA) COLOGUARD (FIT-D NA) [facility] Start: 1992 Colonoscopy COLONOSCOPY [facility] Start: 1992 COLORECTAL CANCER SCREENING COLORECTAL CANCER SCREENING [facility] Start: [address] COLONOGRAPHY [facility] Start: 1992 FECAL OCCULT BLOOD FECAL OCCULT BLOO D [facility] Start: 1992 LIPID SCREEN LIPID SCREEN [facility] Start: 1992 [facility] Start: 1987 Mammography MAMMOGRAM [facility] Start: 1966 Urine microalbumin profile DTAP,TDAP,TD (1 - Tdap) [facility] Start: 1965 HEPATITIS C SCREENING HEPATITIS C [facility] Immunizations Immunization Date Immunization Notes Care Provider Dwight recinos 08-06-2023 influenza, high dose seasonal, preservative-free Anurag Oj Other [employer] Other 08-07-2022 COVID-19 Pfizer (Pediatric) Anurag Bolton Other [employer] Other 08-07-2022 influenza virus vaccine, split virus (incl. purified surface antigen) Anurag Oj Other [employer] Other 01-30-2022 COVID-19 Vaccine Pfi zer - Documentation Purposes Only Anurag Oj Other [employer] Other 08-08-2021 Fluzone High-Dose Quadrivalent 0.7 ML Intramuscular Suspension Prefilled Syringe Anurag Bolton Work Phone: [facility] [employer] [facility] [place] Work Phone: 06-27-2021 Moderna COVID-19 Vaccine 100 MCG/0.5ML Intramuscular Suspension Anurag Norberto Bolton Work Phone: [facility] [employer] [address] [place] Work Phone: 06-20-2021 Pfizer-BioNTech COVID-19 Vacc 30 MCG/0.3ML Intramuscular Suspension Anurag Bolton Work Phone: [facility] [address] [place] Work Phone: 11-17-2020 Pfizer-BioNTech COVID-19 Vacc 30 MCG/0.3ML Intramuscular Suspension Anurag Bolton Work Phone: [facility] [employer] [address] [place] Work Phone: 10-27-2020 Pfizer-BioNTech COVID-19 Vacc 30 MCG/0.3ML Intramuscular Suspension Anurag Bolton Work Phone: [facility] [employer] [address] [place] Work Phone: 06-28-2020 Fluad Quadrivalent 0 .5 ML Intramuscular Prefilled Syringe Anurag Bolton Work Phone: [facility] [address] [place] Work Phone: 07-07-2019 influenza, high dose seasonal, preservative-free [facility]urag Bolton [facility]: [facility] [place] Work Phone: 07-15-2018 influenza, high dose seasonal, preservative-free Anurag Bolton Work Phone: [place] [address] [place] Work Phone: 07-23-2017 influenza, high dose seasonal, preservative-free Anurag Bolton Work Phone: [address] Work Phone: 02-05-2017 pneumococcal conjuga te vaccine, 13 valent Anurag Bolton Work Phone: [address] Work Phone: 02-05-2017 pneumococcal Conjuga te, unspecified formulation; Translations: [Need for prophylactic vaccination against Streptococcus pneumoniae (pneumococcus)] Anurag Bolton Other [facility] [employer] Other 07-05-2016 influenza virus vaccine, split virus (incl. purified surface antigen) Anurag Bolton Other [facility] Other 07-05-2016 influenza, high dose seasonal, preservative-free Anurag Bolton Work Phone: [facility] [address] [employer] Work Phone: 09-23-2015 pneumococcal polysaccharide vaccine, 23 valent Anurag Bolton Work Phone: [facility] [address] [employer] Work Phone: 08-30-2015 influenza, seasonal, injectable, preservative free [facility] [place] Work Phone: 07-05-2014 influenza, high dose seasonal, preservative-free [facility]ag Bolton [facility] [address] [place] Work Phone: 02-02-2013 pneumococcal polysaccharide vaccine, 23 valent [facility]ag [facility] [address] [place] [address] Work Phone: Payers Date Payer Category Payer Unknown MMO MMO MEDICARE SUPPLEMENT [id number] 2020-Present [phone] [address] [place] [address] Indemnity [id number] 2012 Medicare MEDICARE MEDICAR E A AND B [id number] 2012-Present [phone] [address] [address] [place] [address] Medicare [id number] 1959 Medicare [id number] 1959 Unknown [id number] 1947 Unknown [id number] 1947 Unknown [id number] 1947 Unknown [id number] 1947 Unknown [id number] 1947 Unknown [id number] Unknown Social History Date Type Detail Facility Daily caffeine consumption Daily caffeine consumption [facility] [employer] Other Comment on above: 3 diet pops daily.; Start: 01-16-2022 Tobacco smoking stat us SCIS Never smoked tobacco [facility] Start: 01-16-2022 Tobacco use and exposure Smokeless tobacco non-user [facility] Start: 01-16-2022 Alcohol intake Ex-drinker (finding) [facility] Start: 1945 Sex Assigned At Female [facility] Start: 12-31-2021 End: 01-10-2022 Exposure to SARS-CoV-2 (event) Not sure [facility] Sex Assigned At Sex Assigned At Bir th [facility] Other Clinical Notes 06-22-2021 to 10-01-2023 Note Date & Type Note Facility 10-01-2023 Evaluation note Encounter Date Diagnosis Assessment Notes Sep, Primary hypertension (ICD-10 - I10) [facility] [employer] Other 12-05-2023 Evaluation note* Encounter Date Diagnosis [...] index [BMI] 40.0-44.9, adult (ICD-10 - Z68.41) [employer] Other 12-05-2023 Evaluation note* Encounter Date Diagnosis [...] [BMI ] 40.0-44.9, adult (ICD-10 - Z68.41) [employer] Other 09-06-2023 Evaluation note* Encounter Date Diagnosis [...] as needed. Continue OTC treatment for now. [employer] Other 08-11-2023 Evaluation note* Encounter Date Diagnosis [...] (ICD-10 - R79.89) r/o DVT w/ venous [employer] Other 05-12-2022 Miscellaneous Notes* Telephone Encounter - [...] relief. Marie Lea MD [facility] Instructions* Patient Instructions* Marie Lea MD [...] it on your ownagain. [facility]22 NoteHNO ID: [id number] Author: Samantha Lopez MD Service: ? Author Type: Physician Type: Progress Notes Filed: 01/22/2022 3:56 PM Note Text: [facility] New Patient Evaluation Consulting Provider: Anurag Bolton (Lauren) [address] [facility] [address] Consultation requested by the above doctor for [...] a workup by a local neurologist in 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 No* known history of neuromuscular disease [...] for reported prolon (more content not included)... [facility]04-26-2022 History of Present illness Narrative* Samantha Lopez MD - 01/16/2022 1:00 PM EDT Images from the original note were not included. [facility] New Patient Evaluation Consulting Provider: Anurag Bolton ([facility]) [address] [facility] [address] Consultation requested by the above doctor for [...] a workup by a local neurologist in [facility], which performed MR of the lumbar spine [...] raising-bilaterally negative COORDINATION/GAIT: Normal finger-to- nose-finger and [id number] bilaterally. Intact rapid alternating movements bilaterally. Gait [...] will be communicated to the patient via telephone/[employer]. Patient to call office if not contacted after expected testing turnaround time. To aid with communication, patients (and primary care physicians) can sign up for [employer] (or [employer]), which allows online appointment scheduling, transmission of labs results and chart notes, andsecure email communication. To establish either account, visit bright [email or web address]. Marie Lea MD Neuromuscular Medicine (NM) Fellow In the service of Dr. Samantha Lopez (NM Staff) [facility] STAFF PHYSICIAN NOTE OF PERSONAL INVOLVEMENT IN [...] Lopez MD cc: Referring provider: Anurag Bolton ([facility]) [address] [place] [address] Areli Hooksevertonarnol [id number] [place] [address] [facility] Evaluation note* Encounter Date Diagnosis Assessment [...] re-evaluation. Dec, Sensory neuropathy (ICD-10 - G62.9) [employer] Other 11-06-2021 NoteCONSULTATION Consultation Date: 07/30/2021 REASON [...] repeat urine cu (more content not included)...[id number] * Encounter Date Diagnosis Assessment [...] May, Post menopausal syndrome (ICD-10 - N95.1) [employer] Other Evaluation note* Diagnosis Hereditary and idiopathic peripheral neuropathy- Primary Unspecified hereditary and idiopathic peripheral neuropathy Abnormal finding of blood chemistry, unspecified documented in this encounter [facility] note* Diagnosis Abnormality of gait- Primary documented in this encounter [facility] noteNo InformationNobarn[facility] [employer] Other History general Narrative - Reported* Type Description Date Medical History Uterine Cancer Medical History Hypertension Medical History Obesity Medical History Depression Medical History Anxiety Medical History cholecystecomy Surgical History cholecystectomy Surgical History total hysterectomy Hospitalization History SEE ABOVE [employer] Other History general Narrative - Reported* Type Description Date Medical History Uterine Cancer Medical History Hypertension Medical History Obesity Medical History Depression Medical History Anxiety Medical History cholecystecomy Surgical History cholecystectomy Surgical History total hysterectomy Surgical History bowel surgery Hospitalization History SEE ABOVE [employer] Other History general Narrative - Reported* Type Description Date Medical History Uterine Cancer Medical History Hypertension Medical History Obesity Medical History Depression Medical History Anxiety Medical History cholecystecomy Surgical History Problem Title : CHOL ECYSTECTOMY (56427), Problem Status : Active, Surgical History Problem Title : EXPL ORATORY LAPAROTOMY WITH LYSIS OF ADHESIONS (82840), Problem Status : Active, Surgical History Problem [...] BSO (TOTAL ABDOMINAL HYSTERECTOMY AND BILATERAL SALPINGO-OOPHORECTOMY) (99082), Problem Status : Active, Hospitalization History SEE ABOVE [employer] Other Reason for referral (narrative)* Reason Referral for left si ded low back pain and left hip pain Diagnosis 1 Acute left-sided low back pain without sciatica (M54.50) Diagnosis 2 Primary osteoarthrit is of left hip (M16.12) Referral Organization [facility] Ike tamayo Referring Provider First Name Anurag Referring Provider Last Name Oj Referring Provider Specialty Internal Me dicgian Referred Organization [facility] Referred Address [address], [place],[address] Referred Provider Specialty Pain Medicin e Referral [...] XR of lumbar spine and left hip [employer] Other Summary Purpose Family History Unknown Family [...] for follow-up of a hospitalization for D/C [facility] 08/09/2021. * Patient is in the office for the first time after being seen in consultation at [facility] last month for an episode of atrial [...] DATE CREATED AUTHOR AUTHOR'S ORGANIZ ATION 11/10/2021 [facility] DATE CREATED AUTHOR AUTHOR'S ORGANIZ ATION 02/03/2022 [facility] Comments (unrecognize d section and content) In the event this informatio n is protected by the Federal Confidentiality of Alcohol and Drug Abuse Patient Records regulations: The Federal rules restrict any use of the information to criminally investigate or prosecute any alcohol or drug abuse patient.[facility] the event this information is protected by the Federal Confidentiality of Alcohol and Drug Abuse Patient Records regulations: The Federal rules restrict any use of the information to criminally investigate or prosecute any alcohol or drug abuse patient.[facility] Reason for Visit (unrecogniz ed section and content) refill Reason Comments New Patient Reason Comments Results Care Teams (unrecognized sec tion and content) Lumber Straightener Relationship Specialty Start Date End Date Anurag Bolton, DO [address] [place] [address] Physician Internal Medicine 01/10/22 Lumber Straightener Relationship Specialty Start Date End Date Anurag Bolton, DO [address] [place] [address] Physician Internal Medicine 01/10/22 FOR [...] BE BASED ON THE PRIMARY CLINICAL RECORDS. [facility]. provides no warranty or guarantee of the accuracy or completeness of information in this document.
[2023-10-14 09:23] VITALS: BP 151/72; PULSE 65; RESP 16; TEMP 36.2; O2SAT 97
--- NOTE | 2023-10-14 10:12 | W.PM.PROCNOT ---
Date of procedure: 10/14/23 Pre-op diagnosis: Lumbar spondylosis Post-op diagnosis: same as pre-op Procedure: Procedure: Bilateral L4-5, L5-S1 medial branch block Medications: Bupivacaine 0.25% 6cc The patient was seen and examined in the preoperative holding area.? An informed consent was obtained and placed on the chart.? The patient was brought to the medical procedure unit and placed in the prone position.? A timeout was completed verifying correct patient, procedure site, positioning, plan, and special equipment.? Using aseptic technique, the needle was placed at left L4. Under direct fluoroscopic visualization a Quincke-tipped spinal needle was advanced to the junction of the superior articulating process with the transverse process at the designated medial branch segment.? Preceded by negative aspiration, the above-mentioned injectate was placed in 1 mL aliquots.? The procedure was repeated at left L5, S1.? The needle was removed and insertion site was covered. The same procedure, at the same levels, was completed on the right side. The patient was taken to the postprocedural recovery area and monitored for an appropriate length of time before found suitable for discharge in the company of a responsible adult. Anesthesia: Local Surgeon: Bryant Richardson Pathology: none sent Condition: stable Disposition: no change
[2023-10-14] MEDS: BUPIVACAINE HCL 0.25% PF 25 MG/10 ML VIAL 8 ML INJ (10:13)
== END 2023-10-14 10:20 | disposition home or self-care (01) ==
PROVIDERS: PCP Internal Medicine; Visit Provider Anesthesiology
DX: M47.816 Spondylosis without myelopathy or radiculopathy, lumbar region (principal)
CPT/HCPCS: 64493; 64494; J0665

== ENCOUNTER 2023-10-24 11:09 | Outpatient (OUT) | payer MEDICARE, OTHER, SELFPAY ==
--- OUTSIDE RECORDS SUMMARY | 2023-10-24 11:19 | XMS_ITS | CCD ---
Author Name Unknown Address [address] [place] [address] Organization [facility] Care Team Providers Care Community Leader Name Role Phone BELTRAN, DR ROSI Thornton Primary Care Unavailable HAY, DR CR Admitting Unavailable HAY, DR CR Attending Unavailable HAY, DR CR Consulting Unavailable , Hang Consulting Unavailable GONG, DR ROSI Thornton Primary Care Unavailable PAY, DR CRANE Admitting Unavailable PAY, DR CRANE Attending Unavailable PAY, DR CRANE Consulting Unavailable Monzon, Alvin Consulting Unavailable NILL, DR VIGIL Consulting Unavailable FAWWASarah, Admitting Unavailable FAWSHAIKH PENG Attending Unavailable GONG, DR ROSI Thornton Primary Care Unavailable Policaro, Geovani Consulting Unavailable Jessica, Moreno Consulting Unavailable ROBBIE, RIYA Consulting Unavailable FAWWAD, KENDALL Consulting Unavailable GONG, DR ROSI Thornton Primary Care Unavailable OJ, DR KHAN Admitting Unavailable BALL, DR KHAN Attending Unavailable BALL, DR KHAN Consulting Unavailable GONG, DR ROSI Thornton Admitting Unavailable GONG, DR ROSI Thornton Attending Unavailable GONG, DR ROSI Thornton Consulting Unavailable GONG, DR ROSI Thornton Primary Care Unavailable Anurag Bolton Unavailable Unavailable Unavailable Anurag Bolton DO Unavailable [phone] Carlos Gong Unavailable Anurag Bolton Unavailable Debra BAÑUELOS, Bryant Onofre Attending Unavailable Debra BAÑUELOS, Bryant Onofre Attending Unavailable Allergies Allergy Classification Reported Allergen(s) Allergy Type Date of Onset Reaction(s) Facility (1 source) patient allergy list reviewed by nurse or physicia Propensity to adverse reactions 8 Comment:Done [employer] Other (1 source) Allergies Reconciled Propensity to adverse reactions Unknown [employer] Other Medications Current Medications Medication Drug Class(es) [...] Oral daily for 30 *Pick strength-form from [employer] for eRX* Feb, Active Start: 12-08-2021 take 3 capsules by m outh once daily FLUoxetine (PROZAC) 20 mg capsule Take 60 mg by mouth once daily. 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 02-01-[address] [facility] Telephone (NENMMN) ARELI HAWKINS ([id number]) 1945 F Date Time Provider Department 02/01/22 [...] Status:Closed by MARIE LEA on 02/01/22 Normal [facility] IMMUNOFIXATION SCREEN, SERUM on 01-19-2022 MPA Result No M protein is identified. No M protein is identified. [facility] Staff Review (MPA) Reviewed by Lilian Pizarro M.D., Ph.D [facility] METHYLMALONIC ACIDon 022 Methylmalonate [Moles/Vol] 216 nmol/L 79 - 376 nmol/L [facility] RONNIE BY IFA WITH REFLEXon Nuclear Ab IF (S) [Titer] Negative Negative [facility] COPPER BLOODon 01-17-2022 Copper [Mass/Vol] 94 ug/dL 80 - 155 ug/dL [facility] HGB A1Con 01-17-2022 Average glucose Estimated from glycated hemoglobin (Bld) [Mass/Vol] 100 mg/dL [facility] HbA1c (Bld) [Mass fraction] 5.1 % 4.3 - 5.6 % [facility] RONNIE BY IFA WITH REFLEXon Nuclear Ab IF (S) [Titer] Negative Normal Negative [facility] Comment on above: Order Comment: Speci men Type: BLOOD SPECIMEN Ordering Facility: [facility] Address: [address] [place] [address] Result Comment: Anti -nuclear antibody test is used as an aid in diagnosis of systemic autoimmune diseases. Where positive and clinically warranted, follow-up using disease-specific testing is recommended. Low positive titers are not uncommon with advanced age, certain chronic infections, and malignancies among others. Test methodology: Indirect fluorescence immunoassay (IFA) using HEp-2 cells. Performed By: #### A CONNIE, IFESC #### [facility] CLIA [id number] [address] [place], [place] [address] [place] C-REACTIVE PROTEIN (CRP)on 0 01-16-2022 CRP [Mass/Vol] mg/L <0.9 mg/dL [facility] CNOVon 01-16-2022 CNOV Office Visit (NENMMN ) ARELI HAWKINS ([id number]) 1945 F Date Time Provider Department 01/16/22 1:00 PM [facility] During your visit today, we recorded the following information about you: Pulse Blood pressure Weight Height 64/minute 150/62 95.3 kg 1.626 m Samantha Lopez MD 01/22/2022 3:56 PM Signed [facility] Neuromuscular Center New Patient Evaluation Consulting Provider: Anurag Wahl) [address] [facility] [address] Consultation requested by the above doctor for [...] a workup by a local neurologist in [facility], which performed MR of the lumbar spine [...] 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 ancestry. No* known history of neuromuscular [...] of incon (more content not included)... Normal [facility] COPPER BLOODon 01-16-2022 Copper [Mass/Vol] 94 ug/dL Normal 80-155 [facility] Comment on above: Order Comment: Speci men Type: BLOOD SPECIMEN Ordering Facility: [facility] Address: [address] [place] [address] Result Comment: This test was developed and its performance characteristics determined by [facility]'s [facility] [place] ([facility]). It has not been cleared or approved by the FDA. [facility] is regulated under CLIA as qualified to perform high-complexity testing. This test is used for clinical purposes. It should not be regarded as investigational or for research. Performed By: #### A LUIS F ROSALES #### [facility] CLIA [id number] [address] [place] [address] [place] CRP SerPl-mCncon 01-16-2022 CRP [Mass/Vol] mg/L Normal <0.9 [facility] Comment on above: Order Comment: Speci men Type: BLOOD SPECIMEN Ordering Facility: [facility] Address: [address] [place] [address] Performed By: #### 3 016-3, B12, 1988-01 #### [facility] CLIA [id number] [address] [place] [address] [place] CRYOGLOBULIN, QUAL, REFLEX T O CASSI AND IGG,A,Mon 01-16-2022 CRYOGLOBULIN, QUALITATIVE NEG 72Hour Normal -72Hour [facility] Comment on above: Order Comment: Speci men Type: BLOOD SPECIMEN Ordering Facility: [facility] Address: [address] [place] [address] Result Comment: This test was developed and its performance characteristics determined by [facility]. It has not been cleared or approved by the [place] Food and Drug Administration. This test was performed in a CLIA certified laboratory and is intended for clinical purposes. Performed By: [facility] [address] [place] [address] Diesel Engineer: Hilary Mariano MD Performed By: #### A ALBERTINA ROSALESC #### [facility] CLIA [id number] [address] [place] [address] [place] ESR Westergren method (Bld) [Velocity]on 01-16-2022 ESR (Bld) [Velocity] 8 mm/h 0 - 20 mm/hr Cl [facility] ESR (Bld) [Velocity] 8 mm/h Normal 0-20 [facility] Comment on above: Order Comment: Speci men Type: BLOOD SPECIMEN Ordering Facility: [facility] Address: [address] [place] [address] Performed By: #### 4 537-7 #### [facility] CLIA [id number] [address] [place] [address] [place] HGB A1Con 01-16-2022 Average glucose Estimated from glycated hemoglobin (Bld) [Mass/Vol] 100 mg/dL Normal [facility] Comment on above: Order Comment: Martha men Type: BLOOD SPECIMEN Ordering Facility: [facility] Address: [address] [place] [address] Result Comment: eAG: (Estimated average glucose) is a calculated value from HgbA1c and is automotive leasing sales representative of the average blood glucose level in the last 2-3 month period. Performed By: #### H BA1C #### [facility] CLIA [id number] [address] [place] [address] STATES OF [facility] HbA1c (Bld) [Mass fraction] 5.1 % Normal 4.3-5.6 [facility] Comment on above: Order Comment: [facility] Type: BLOOD SPECIMEN Ordering Facility: [facility] Address: [address] [place] [address] Result Comment: [place] Diabetes Association guidelines indicate that patients with HgbA1c in the range 5.7-6.4% are at increased risk for development of diabetes, and intervention by lifestyle modification may be beneficial. HgbA1c greater or equal to 6.5% is considered diagnostic of diabetes. Performed By: #### H BA1C #### [facility] CLIA [id number] [address] [place] [address] OF [place] IMMUNOFIXATION SCREEN, SERUM on 01-16-2022 MPA RESULT No M protein is identified. Normal No M protein is identified. [facility] Comment on above: Order Comment: [facility] Type: BLOOD SPECIMEN Ordering Facility: [facility] Address: [address] [place] [address] Performed By: #### A LUIS F ROSALES #### [facility] CLIA [id number] [address] [place] [address] [place] STAFF REVIEW (RUST) Reviewed by Lilian Pizarro M.D., Ph.D Normal [facility] Comment on above: Order Comment: Speci men Type: BLOOD SPECIMEN Ordering Facility: [facility] Address: [address] [place] [address] Performed By: #### A ALBERTINA ROSALES #### [facility] CLIA [id number] [address] [place] [address] [place] KAPPA/CASTILLO,FREE,SERon 2021 Immunoglobulin light chains.kappa.free (S) [Mass/Vol] 31.2 mg/L High 3.3 - 19.4 mg/L [facility] Immunoglobulin light chains.kappa/Immunog lobulin light chains.lambda (S) [Mass ratio] 1.46 0.26 - 1.65 [facility] Immunoglobulin light chains.lambda.free [Mass/Vol] 21.4 mg/L 5.7 - 26.3 mg/L [facility] Immunoglobulin light chains.kappa.free (S) [Mass/Vol] 31.2 mg/L High 3.3-19.4 [facility] Comment on above: Order Comment: Speci men Type: BLOOD SPECIMEN Ordering Facility: [facility] Address: [address] [place] [address] Performed By: #### K LFRS #### [facility] CLIA [id number] [address] [place] [address] [place] Immunoglobulin light chains.kappa/Immunog lobulin light chains.lambda (S) [Mass ratio] 1.46 Normal 0.26-1.65 [facility] Comment on above: Order Comment: Speci men Type: BLOOD SPECIMEN Ordering Facility: [facility] Address: [address] [place] [address] Performed By: #### K LFRS #### [facility] CLIA [id number] [address] [place] [address] [place] Immunoglobulin light chains.lambda.free [Mass/Vol] 21.4 mg/L Normal 5.7-26.3 [facility] Comment on above: Order Comment: Speci men Type: BLOOD SPECIMEN Ordering Facility: [facility] Address: [address] [place] [address] Performed By: #### K LFRS #### [facility] CLIA [id number] [address] [place] [address] [place] Methylmalonate SerPl-sCncon 01-16-2022 Methylmalonate [Moles/Vol] 216 nmol/L Normal 79-376 [facility] Comment on above: Order Comment: Speci men Type: BLOOD SPECIMEN Ordering Facility: [facility] Address: [address] [place] [address] Result Comment: This test was developed and its performance characteristics determined by [facility]'s [facility] [place] ([facility]). It has not been cleared or approved by the FDA. [facility] is regulated under CLIA as qualified to perform high-complexity testing. This test is used for clinical purposes. It should not be regarded as investigational or for research. Performed By: #### 1 3964-2 #### [facility] CLIA [id number] [address] [place] [address] [place] TSH BLDon 01-16-2022 TSH Qn 1.380 m[IU]/L 0.270 - 4.200 mIU/L [facility] TSH SerPl-aCncon 01-16-2022 TSH Qn 1.380 m[IU]/L Normal 0.270-4.200 [facility] Comment on above: Order Comment: Speci men Type: BLOOD SPECIMEN Ordering Facility: [facility] Address: [address] [place] [address] Performed By: #### 3 016-3, B12, 1988- #### [facility] CLIA [id number] [address] [id number] [place] VITAMIN B12 BLOODon 01-17-20 22 Cobalamin (Vitamin B12) [Mass/Vol] 1194 pg/mL 232-1,245 pg/mL [facility] Cobalamin (Vitamin B12) [Mass/Vol] 1194 pg/mL Normal 232-1,245 [facility] Comment on above: Order Comment: Speci men Type: BLOOD SPECIMEN Ordering Facility: [facility] Address: [address] [place] [address] Performed By: #### 3 016-3, B12, 1988-01 #### [facility] CLIA [id number] [address] [place] [address] [place] Office Visit (Cardiology)on 10-05-2021 Follow-up [...] signing my name below, I, Elise Plaza LPNibe, attest that this documentation has been prepared under the direction and in the presence of Dr. Stephany Kaye MD. 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 Patient is in the office for the first time after being seen in consultation at [facility] last month for an episode of [...] 05Oct2021 11:53AM Heart Rate69, L Brachial Artery Aonolkln248, LUE, Sitting Kmmpmarvm89, LUE, Sitting Height5 ft 4 in Bbgong014 lb BMI Zfglccguli36.67 kg/m2 BSA Calculated1.96 Tobacco Useb) No Fall [...] . Signatures Electronically signed by : Stephany Kaey MD; Oct 05 2021 12:22PM EST (Author) Normal [employer] Tobacco Screening.on 022 Fall risk assessment a) No falls within the last year -[facility] [address] [place] Work Phone: Tobacco use status [facility] b) No -[facility] [address] [place] Work Phone: CULTURE URINEon 09-07-2021 CULTURE URINE Culture Observations : LIGHT GROWTH OF MIXED GENITAL RAMSES. NO POTENTIAL PATHOGENS SEEN. Normal [facility] Comment on above: Performed By: #### B MP #### [facility] [address] [place] [address] Dr. Millie Flores UA RANDOM W/MICROSCOPICon BACTERIA TRACE Abnormal NONE SEEN [facility] Comment on above: Performed By: #### B MP #### [facility] [address] [address] [address] Millie Flores Bilirubin Ql (U) Negative Normal NEGATIVE [facility] Comment on above: Performed By: #### B MP #### [facility] [address] [place] [address] Dr. Millie Flores CAST NONE SEEN Normal NONE SEEN [facility] Comment on above: Performed By: #### B MP #### [facility] [address] [place] [address] Dr. Millie Flores Clarity (U) CLEAR Normal CLEAR [facility] Comment on above: Performed By: #### B MP #### [facility] [address] [place] [address] Dr. Millie Flores Color (U) LT. YELLOW Normal YELLOW [facility] Comment on above: Performed By: #### B MP #### [facility] [address] [place] [address] Dr. Millie Flores Crystals LM Nom (Urine sed) NONE SEEN Normal NONE SEEN [facility] Comment on above: Performed By: #### B MP #### [facility] [address] [place] [address] Dr. Millie Flores Epithelial cells LM Ql (Urine sed) FEW Abnormal NONE SEEN /RARE [facility] Comment on above: Performed By: #### B MP #### [facility] [address] [place] [address] Dr. Millie Flores Glucose Ql (U) Negative Normal NEGATIVE [facility] Comment on above: Performed By: #### B MP #### [facility] [address] [place] [address] Dr. Millie Flores Hemoglobin Ql (U) Negative Normal NEGATIVE [facility] Comment on above: Performed By: #### B MP #### [facility] [address] [place] [address] Dr. Millie Flores Ketones Ql (U) Negative Normal NEGATIVE [facility] Comment on above: Performed By: #### B MP #### [facility] [address] [place] [address] Dr. Millie Flores LEUKOCYTES SMALL Abnormal NEGATIVE [facility] Comment on above: Performed By: #### B MP #### [facility] [address] [place] [address] Dr. Millie Flores MUCOUS TRACE Abnormal NONE SEEN [facility] Comment on above: Performed By: #### B MP #### [facility] [address] [place] [address] Dr. Millie Flores Nitrite Ql (U) Negative Normal NEGATIVE [facility] Comment on above: Performed By: #### B MP #### [facility] [address] [address] [address] Millie Flores pH (U) 5.5 [pH] Normal 5-9 [facility] Comment on above: Performed By: #### B MP #### [facility] [address] [address] [address] Millie Flores RBC 0-2 Normal 0-2 [facility] Comment on above: Performed By: #### B MP #### [facility] [address] [address] [address] Millie Flores SPEC GRAVITY >=1.030 Abnormal 1.005-<=1.02 5 [facility] Comment on above: Performed By: #### B MP #### [facility] [address] [place] [address] Dr. Millie Flores UA PROTEIN Negative Normal NEGATIVE/ TRACE [facility] Comment on above: Performed By: #### B MP #### [facility] [address] [place] [address] Dr. Millie Flores Urobilinogen Qn (U) 0.2 {Robert'U}/dL Normal 0.2 - 1. 0 [facility] Comment on above: Performed By: #### B MP #### [facility] [address] [place] [address] Dr. Millie Flores WBC 5-10 Abnormal NONE SEEN [facility] Comment on above: Performed By: #### B MP #### [facility] [address] [place] [address] Dr. Millie Flores MM screening mammo BI w/CADo n 09-04-2021 MM screening mammo BI w/CAD [facility] [place] [address] [place] [address] Mammography Report Signed Patient: Areli Hawkins MR#: [id number] : 1945 Acct:[id number] Age/Sex: 75 / F ADM Date: 09/02/21 Loc: ID Room: Type: [facility] CLI Attending Dr: Anurag Bolton DO Ordering Provider: [...] Marbella Mistry M.D.09/04/2021 11:34 AM Dictation Location: [facility] Transcribed By: [facility] 09/04/21 1134 Dictated By: Marbella Mistry MD 09/04/211130 Signed By: 09/04/21 1134 [facility] CBC AUTO DIFFon 08-30-2021 BASO # 0.0 103/ul Normal 0.0-0.1 [facility] Comment on above: Performed By: #### C BC #### [facility] [address] [address] [address] Millie Flores Basophils/100 WBC (Bld) 0.6 % Normal 0.2-2.0 [facility] Comment on above: Performed By: #### C BC #### [facility] [address] [place], [place] [address] Dr. Millie Flores EO # 0.0 103/ul Normal 0.0-0.7 [facility] Comment on above: Performed By: #### C BC #### [facility] [address] [address] [address] Millie Flores Eosinophils/100 WBC (Bld) 0.9 % Normal 0.9-7.0 [facility] Comment on above: Performed By: #### C BC #### [facility] [address] [address] [address] Millie Flores Erythrocyte distribution width (RBC) [Ratio] 48.3 % Critically high 11.0-15.0 [facility] Comment on above: Performed By: #### C BC #### [facility] [address] [place] [address] Dr. Millie Flores Hematocrit (Bld) [Volume fraction] 38.1 % Normal 36.0-48.0 [facility] Comment on above: Performed By: #### C BC #### [facility] [address] [place] [address] Dr. Millie Flores Hemoglobin (Bld) [Mass/Vol] 12.1 g/dL Normal 12.0-16.0 [facility] Comment on above: Performed By: #### C BC #### [facility] [address] [place] [address] Dr. Millie Flores IG # 0.07 10e3/ul Critically high 0.00-0.03 [facility] Comment on above: Performed By: #### C BC #### [facility] [address] [place] [address] Dr. Millie Flores IG % 0.8 % Critically high 0.0-0.5 [facility] Comment on above: Performed By: #### C BC #### [facility] [address] [address] [address] Millie Flores LYMPH # 2.3 103/ul Normal 1.2-3.8 [facility] Comment on above: Performed By: #### C BC #### [facility] [address] [place] [address] Dr. Millie Flores Lymphocytes/100 WBC (Bld) 26.8 % Normal 20.5-60.0 [facility] Comment on above: Performed By: #### C BC #### [facility] [address] [place] [address] Dr. Millie Flores MANUAL DIFF REQ NO Normal [facility] Comment on above: Performed By: #### C BC #### [facility] [address] [place] [address] Dr. Millie Flores MCH (RBC) [Entitic mass] 30.7 pg Normal 26.7-34.0 [facility] Comment on above: Performed By: #### C BC #### [facility] [address] [place] [address] Dr. Millie Flores MCHC (RBC) [Mass/Vol] 31.8 g/dL Normal 29.9-35.2 [facility] Comment on above: Performed By: #### C BC #### [facility] [address] [place] [address] Dr. Millie Flores MCV (RBC) [Entitic vol] 96.7 fL Normal 81.0-99.0 [facility] Comment on above: Performed By: #### C BC #### [facility] [address] [place] [address] Dr. Millie Flores MONO # 0.9 103/ul Critically high 0.3-0.8 [facility] Comment on above: Performed By: #### C BC #### [facility] [address] [place] [address] Dr. Millie Flores Monocytes/100 WBC (Bld) 11.4 % Normal 1.7-12.0 [facility] Comment on above: Performed By: #### C BC #### [facility] [address] [place] [address] Dr. Millie Flores NEUT # 5.1 103/ul Normal 1.4-6.5 [facility] Comment on above: Performed By: #### C BC #### [facility] [address] [place] [address] Dr. Millie Flores Neutrophils/100 WBC (Bld) 59.5 % Normal 43.0-75.0 [facility] Comment on above: Performed By: #### C BC #### [facility] [address] [place] [address] Dr. Millie Flores Platelet mean volume (Bld) [Entitic vol] 9.5 fL Normal 9.5-13.5 [facility] Comment on above: Performed By: #### C BC #### [facility] [address] [place] [address] Dr. Millie Flores PLT 239 103/ul Normal 150-450 [facility] Comment on above: Performed By: #### C BC #### [facility] [address] [place] [address] Dr. Millie Flores RBC 3.94 106/ul Critically low 4.20-5.40 [facility] Comment on above: Performed By: #### C BC #### [facility] [address] [place] [address] Dr. Millie Flores WBC 8.7 103/ul Normal 4.0-11.0 [facility] Comment on above: Performed By: #### C BC #### [facility] [address] [place] [address] Dr. Millie Flores PROF 14(COMP METB)on 021 Albumin [Mass/Vol] 3.4 g/dL Critically low 3.5-5.0 [facility] Comment on above: Performed By: #### C ALINE HSTROPN #### [facility] [address] [place] [address] Dr. Millie Flores Albumin/Globulin [Mass ratio] 1.0 {ratio} Normal [facility] Comment on above: Performed By: #### C ALINE, HSTROPN #### [facility] [address] [place] [address] Dr. Millie Flores ALP [Catalytic activity/Vol] 77 U/L Normal 38-126 [facility] Comment on above: Performed By: #### C ALINE, HSTROPN #### [facility] [address] [place] [address] Dr. Millie Flores ALT [Catalytic activity/Vol] 17 U/L Normal 9-52 [facility] Comment on above: Performed By: #### C MP, HSTROPN #### [facility] [address] [address] [address] Millie Flores Anion gap [Moles/Vol] 13.1 mmol/L Normal [facility] Comment on above: Performed By: #### C MP, HSTROPN #### [facility] [address] [address] [address] Millie Flores AST [Catalytic activity/Vol] 19 U/L Normal 14-36 [facility] Comment on above: Performed By: #### C MP, HSTROPN #### [facility] [address] [address] [address] Millie Flores Bilirubin [Mass/Vol] 0.2 mg/dL Normal 0.2-1.3 [facility] Comment on above: Performed By: #### C MP, HSTROPN #### [facility] [address] [address] [address] Millie Flores Calcium [Mass/Vol] 9.2 mg/dL Normal 8.4-10.2 [facility] Comment on above: Performed By: #### C MP, HSTROPN #### [facility] [address] [address] [address] Millie Flores Chloride [Moles/Vol] 101 mmol/L Normal 98-107 [facility] Comment on above: Performed By: #### C MP, HSTROPN #### [facility] [address] [address] [address] Millie Flores CO2 [Moles/Vol] 26.3 mmol/L Normal 22.0-30.0 [facility] Comment on above: Performed By: #### C MP, HSTROPN #### [facility] [address] [place] [address] Dr. Millie Flores Creatinine [Mass/Vol] 0.99 mg/dL Normal 0.52-1.04 [facility] Comment on above: Performed By: #### C MP, HSTROPN #### [facility] [address] [address] [address] Millie Folres EGFR-AF MALTESE >60 Normal >=60 [facility] Comment on above: Performed By: #### C ALINE, HSTROPN #### [facility] [address] [place] [address] Dr. Millie Flores EGFR-NON AF MALTESE 55 mL/min/1.73m2 Critically low >=60 [facility] Comment on above: Performed By: #### C ALINE, HSTROPN #### [facility] [address] [place] [address] Dr. Millie Flores Globulin (S) [Mass/Vol] 3.8 g/dL Normal [facility] Comment on above: Performed By: #### C ALINE, HSTROPN #### [facility] [address] [place] [address] Dr. Millie Flores Glucose [Mass/Vol] 111 mg/dL Critically high 74-106 [facility] Comment on above: Performed By: #### C ALINE, HSTROPN #### [facility] [address] [place] [address] Dr. Millie Flores Potassium [Moles/Vol] 3.4 mmol/L Normal 3.4-5.0 [facility] Comment on above: Performed By: #### C ALINE, HSTROPN #### [facility] [address] [place] [address] Dr. Millie Flores Protein [Mass/Vol] 7.2 g/dL Normal 6.1-8.2 [facility] Comment on above: Performed By: #### C ALINE, HSTROPN #### [facility] [address] [place] [address] Dr. Millie Flores Sodium [Moles/Vol] 137 mmol/L Normal 137-145 [facility] Comment on above: Performed By: #### C ALINE, HSTROPN #### [facility] [address] [place] [address] Dr. Millie Flores Urea nitrogen [Mass/Vol] 12.0 mg/dL Normal 7.0-17.0 [facility] Comment on above: Performed By: #### C ALINE, HSTROPN #### [facility] [address] [address] [address] Millie Flores Urea nitrogen/Creatinine [Mass ratio] 12.1 mg/mg Normal [facility] Comment on above: Performed By: #### C MP, HSTROPN #### [facility] [address] [address] [address] Millie Flores TROPONIN, HIGH SENSITIVITYon 08-30-2021 HSTROP 6.2 pg/mL Normal 4.0-35.5 [facility] Comment on above: Result Comment: CUT- OFF POINTS HAVE BEEN ESTABLISHED BASED ON THE FOURTH UNIVERSAL DEFINITIONS OF MYOCARDIAL INFARCTION. THE UPPER REFERENCE LIMIT (URL) OF TROPONIN, DEFINED THE 99TH PERCENTILE OF cTnI DISTRIBUTION IN A REFERENCE POPULATION, HAS BEEN CONFIRMED THE DECISION THRESHOLD FOR ME DIAGNOSIS. Performed By: #### C MP, HSTROPN #### [facility] [address] [address] [address] Millie Flores XR CHEST 1 Von [...] by: ALVIN MONZON Date: 2021-08-30 05:42 Normal [facility] Complete Blood Count Auto Di ffon 08-09-2021 Basophils (Bld) [#/Vol] 0.0 10*3/uL Normal 0.0-0.2 [facility] Comment on above: Result Comment: PERF ORMED BY: [place] [address] PATHOLOGIST [employer] ROBYN CASAS M.D. Performed By: #### C BC, LIPASE, LACTIC, CMP #### [address] Basophils/100 WBC (Bld) 0.3 % Normal . [facility] Comment on above: Performed By: #### C BC, LIPASE, LACTIC, CMP #### [address] Eosinophils (Bld) [#/Vol] 0.3 10*3/uL Normal 0.0-0.45 [facility] Comment on above: Performed By: #### C BC, LIPASE, LACTIC, CMP #### [address] Eosinophils/100 WBC (Bld) 2.8 % Normal . [facility] Comment on above: Performed By: #### C BC, LIPASE, LACTIC, CMP #### [address] Erythrocyte distribution width (RBC) [Ratio] 14.4 % Normal 11.9-15.3 [facility] Comment on above: Performed By: #### C BC, LIPASE, LACTIC, CMP #### [address] Hematocrit (Bld) [Volume fraction] 32.7 % Low 34.0-46.4 [facility] Comment on above: Performed By: #### C BC, LIPASE, LACTIC, CMP #### [address] Hemoglobin (Bld) [Mass/Vol] 11.0 g/dL Low 11.8-15.4 [facility] Comment on above: Performed By: #### C BC, LIPASE, LACTIC, CMP #### [address] Lymphocytes (Bld) [#/Vol] 1.3 10*3/uL Normal 1.00-4.8 [facility] Comment on above: Performed By: #### C BC, LIPASE, LACTIC, CMP #### [address] Lymphocytes/100 WBC (Bld) 14.0 % Normal . [facility] Comment on above: Performed By: #### C BC, LIPASE, LACTIC, CMP #### [address] MCH (RBC) [Entitic mass] 31.6 pg Normal 24.7-34.3 [facility] Comment on above: Performed By: #### C BC, LIPASE, LACTIC, CMP #### [address] MCV (RBC) [Entitic vol] 94.0 fL Normal 80-100 [facility] Comment on above: Performed By: #### C BC, LIPASE, LACTIC, CMP #### [address] Mean Corpuscular HGB Conc 33.6 g/dL Normal 32.0-35.0 [facility] Comment on above: Performed By: #### C BC, LIPASE, LACTIC, CMP #### [address] Monocytes (Bld) [#/Vol] 1.3 10*3/uL High 0.0-0.8 [facility] Comment on above: Performed By: #### C BC, LIPASE, LACTIC, CMP #### [address] Monocytes/100 WBC (Bld) 13.7 % Normal . [facility] Comment on above: Performed By: #### C BC, LIPASE, LACTIC, CMP #### [address] Neutrophils (Bld) [#/Vol] 6.5 10*3/uL Normal 1.8-7.7 [facility] Comment on above: Performed By: #### C BC, LIPASE, LACTIC, CMP #### [address] Neutrophils/100 WBC (Bld) 69.2 % Normal . [facility] Comment on above: Performed By: #### C BC, LIPASE, LACTIC, CMP #### [address] Nucleated RBC/100 WBC (Bld) [Ratio] 0.1 % Normal 0-0.5 [facility] Comment on above: Performed By: #### C BC, LIPASE, LACTIC, CMP #### [address] Platelet mean volume (Bld) [Entitic vol] 7.1 fL Normal 6.3-10.7 [facility] Comment on above: Performed By: #### C BC, LIPASE, LACTIC, CMP #### [address] Platelets (Bld) [#/Vol] 179 10*3/uL Normal 150-450 [facility] Comment on above: Performed By: #### C BC, LIPASE, LACTIC, CMP #### [address] RBC (Bld) [#/Vol] 3.48 10*6/uL Low 3.60-5.00 [facility] Comment on above: Performed By: #### C BC, LIPASE, LACTIC, CMP #### [address] WBC (Bld) [#/Vol] 9.3 10*3/uL Normal 4.5-11.0 [facility] Comment on above: Performed By: #### C BC, LIPASE, LACTIC, CMP #### [address] Comprehensive Metabolic Pane lizy 08-09-2021 Albumin [Mass/Vol] 2.4 g/dL Low 3.2-5.5 [facility] Comment on above: Performed By: #### C BC, LIPASE, LACTIC, CMP #### [address] Albumin/Globulin [Mass ratio] 0.9 {ratio} Normal [facility] Comment on above: Performed By: #### C BC, LIPASE, LACTIC, CMP #### [address] ALP [Catalytic activity/Vol] 53 U/L Normal 32-92 [facility] Comment on above: Performed By: #### C BC, LIPASE, LACTIC, CMP #### [address] ALT [Catalytic activity/Vol] 15 U/L Normal 10-60 [facility] Comment on above: Performed By: #### C BC, LIPASE, LACTIC, CMP #### [facility] [address] AST [Catalytic activity/Vol] 20 U/L Normal 10-42 [facility] Comment on above: Performed By: #### C BC, LIPASE, LACTIC, CMP #### [facility] [address] Bilirubin [Mass/Vol] 0.4 mg/dL Normal 0.3-1.2 [facility] Comment on above: Performed By: #### C BC, LIPASE, LACTIC, CMP #### [address] Calcium [Mass/Vol] 8.1 mg/dL Low 8.2-10.2 [facility] Comment on above: Performed By: #### C BC, LIPASE, LACTIC, CMP #### [address] Chloride [Moles/Vol] 102 mmol/L Normal 95-114 [facility] Comment on above: Performed By: #### C BC, LIPASE, LACTIC, CMP #### [address] CO2 [Moles/Vol] 29.7 mmol/L Normal 22.0-30.0 [facility] Comment on above: Performed By: #### C BC, LIPASE, LACTIC, CMP #### [address] Creatinine [Mass/Vol] 0.57 mg/dL Normal 0.44-1.03 [facility] Comment on above: Performed By: #### C BC, LIPASE, LACTIC, CMP #### [address] Creatinine Clr Calc Pharmacy 73.94 Normal [facility] Comment on above: Result Comment: PERF ORMED BY: [place] [address] PATHOLOGIST [employer] ROBYN CASAS M.D. Performed By: #### C BC, LIPASE, LACTIC, CMP #### [facility] [address] Estimated GFR ( Joey > 60 Normal [facility] Comment on above: Result Comment: GFR estimated reference range: According to KDOQI guidelines, <60 ml/min/1.73m2 is sufficient to diagnose a patient with chronic kidney disease. Performed By: #### C BC, LIPASE, LACTIC, CMP #### [facility] [address] Estimated GFR (Non- Am > 60 Normal [facility] Comment on above: Performed By: #### C BC, LIPASE, LACTIC, CMP #### [facility] [address] Globulin (S) [Mass/Vol] 2.6 g/dL Normal [facility] Comment on above: Performed By: #### C BC, LIPASE, LACTIC, CMP #### [facility] [address] Glucose [Mass/Vol] 104 mg/dL High 70-100 [facility] Comment on above: Result Comment: Nettie om Glucose Reference Range is dependent on time and content of last meal. Glucose of more than 200 mg/dL in a nonstressed, ambulatory subject supports the diagnosis of Diabetes Mellitus. ADA recommended reference range Performed By: #### C BC, LIPASE, LACTIC, CMP #### [address] Potassium [Moles/Vol] 3.4 mmol/L Low 3.5-5.1 [facility] Comment on above: Performed By: #### C BC, LIPASE, LACTIC, CMP #### [facility] [address] Protein [Mass/Vol] 5.0 g/dL Low 6.1-7.9 [facility] Comment on above: Performed By: #### C BC, LIPASE, LACTIC, CMP #### [facility] [address] Sodium [Moles/Vol] 140 mmol/L Normal 136-146 [facility] Comment on above: Performed By: #### C BC, LIPASE, LACTIC, CMP #### [facility] [address] [place] [address] [place] Urea nitrogen [Mass/Vol] 9 mg/dL Normal 06-15 [facility] Comment on above: Performed By: #### C BC, LIPASE, LACTIC, CMP #### [facility] [address] [id number] [facility] Glucose Poct Glucometerson 1 10-09-2020 Glucose [Mass/Vol] 108 mg/dL Normal [facility] Comment on above: Result Comment: Nettie om Glucose Reference Range is dependent on time and content of last meal. Glucose of more than 200 mg/dL in a nonstressed, ambulatory subject supports the diagnosis of Diabetes Mellitus. PERFORMED BY: [place] [address] PATHOLOGIST [employer] ROBYN CASAS M.D. Performed By: #### C BC, LIPASE, LACTIC, CMP #### [facility] [address] Glucose [Mass/Vol] 87 mg/dL Normal [facility] Comment on above: Result Comment: Nettie om Glucose Reference Range is dependent on time and content of last meal. Glucose of more than 200 mg/dL in a nonstressed, ambulatory subject supports the diagnosis of Diabetes Mellitus. PERFORMED BY: [place] [address] PATHOLOGIST [employer] ROBYN CASAS M.D. Performed By: #### C BC, LIPASE, LACTIC, CMP #### [facility] [address] [id number] [place] Glucose [Mass/Vol] 102 mg/dL Normal [facility] Comment on above: Result Comment: Nettie om Glucose Reference Range is dependent on time and content of last meal. Glucose of more than 200 mg/dL in a nonstressed, ambulatory subject supports the diagnosis of Diabetes Mellitus. PERFORMED BY: [place] [address] PATHOLOGIST [employer] JIANLAN SUN M.D. Performed By: #### C BC, LIPASE, LACTIC, CMP #### [facility] [address] Complete Blood Count Auto Di ffon 08-08-2021 Basophils (Bld) [#/Vol] 0.0 10*3/uL Normal 0.0-0.2 [facility] Comment on above: Result Comment: PERF ORMED BY: [place] [address] PATHOLOGIST [employer] ROBYN CASAS M.D. Performed By: #### C BC, LIPASE, LACTIC, CMP #### [address] Basophils/100 WBC (Bld) 0.2 % Normal . [facility] Comment on above: Performed By: #### C BC, LIPASE, LACTIC, CMP #### [address] Eosinophils (Bld) [#/Vol] 0.2 10*3/uL Normal 0.0-0.45 [facility] Comment on above: Performed By: #### C BC, LIPASE, LACTIC, CMP #### [address] Eosinophils/100 WBC (Bld) 2.2 % Normal . [facility] Comment on above: Performed By: #### C BC, LIPASE, LACTIC, CMP #### [address] Erythrocyte distribution width (RBC) [Ratio] 14.0 % Normal 11.9-15.3 [facility] Comment on above: Performed By: #### C BC, LIPASE, LACTIC, CMP #### [address] Hematocrit (Bld) [Volume fraction] 31.5 % Low 34.0-46.4 [facility] Comment on above: Performed By: #### C BC, LIPASE, LACTIC, CMP #### [address] Hemoglobin (Bld) [Mass/Vol] 10.6 g/dL Low 11.8-15.4 [facility] Comment on above: Performed By: #### C BC, LIPASE, LACTIC, CMP #### [address] Lymphocytes (Bld) [#/Vol] 1.1 10*3/uL Normal 1.00-4.8 [facility] Comment on above: Performed By: #### C BC, LIPASE, LACTIC, CMP #### [address] Lymphocytes/100 WBC (Bld) 11.8 % Normal . [facility] Comment on above: Performed By: #### C BC, LIPASE, LACTIC, CMP #### [address] MCH (RBC) [Entitic mass] 31.7 pg Normal 24.7-34.3 [facility] Comment on above: Performed By: #### C BC, LIPASE, LACTIC, CMP #### [address] MCV (RBC) [Entitic vol] 94.3 fL Normal 80-100 [facility] Comment on above: Performed By: #### C BC, LIPASE, LACTIC, CMP #### [address] Mean Corpuscular HGB Conc 33.6 g/dL Normal 32.0-35.0 [facility] Comment on above: Performed By: #### C BC, LIPASE, LACTIC, CMP #### [address] Monocytes (Bld) [#/Vol] 1.1 10*3/uL High 0.0-0.8 [facility] Comment on above: Performed By: #### C BC, LIPASE, LACTIC, CMP #### [address] Monocytes/100 WBC (Bld) 11.6 % Normal . [facility] Comment on above: Performed By: #### C BC, LIPASE, LACTIC, CMP #### [place] [address] [place] Neutrophils (Bld) [#/Vol] 6.8 10*3/uL Normal 1.8-7.7 [facility] Comment on above: Performed By: #### C BC, LIPASE, LACTIC, CMP #### [facility] [address] Neutrophils/100 WBC (Bld) 74.2 % Normal . [facility] Comment on above: Performed By: #### C BC, LIPASE, LACTIC, CMP #### [facility] [address] Nucleated RBC/100 WBC (Bld) [Ratio] 0.0 % Normal 0-0.5 [facility] Comment on above: Performed By: #### C BC, LIPASE, LACTIC, CMP #### [facility] [address] Platelet mean volume (Bld) [Entitic vol] 7.1 fL Normal 6.3-10.7 [facility] Comment on above: Performed By: #### C BC, LIPASE, LACTIC, CMP #### [address] Platelets (Bld) [#/Vol] 173 10*3/uL Normal 150-450 [facility] Comment on above: Performed By: #### C BC, LIPASE, LACTIC, CMP #### [address] RBC (Bld) [#/Vol] 3.34 10*6/uL Low 3.60-5.00 [facility] Comment on above: Performed By: #### C BC, LIPASE, LACTIC, CMP #### [place] [address] [place] WBC (Bld) [#/Vol] 9.2 10*3/uL Normal 4.5-11.0 [facility] Comment on above: Performed By: #### C BC, LIPASE, LACTIC, CMP #### [address] Comprehensive Metabolic Pane lizy 08-08-2021 Albumin [Mass/Vol] 2.2 g/dL Low 3.2-5.5 [facility] Comment on above: Performed By: #### C BC, LIPASE, LACTIC, CMP #### [facility] [address] Albumin/Globulin [Mass ratio] 0.9 {ratio} Normal [facility] Comment on above: Performed By: #### C BC, LIPASE, LACTIC, CMP #### [facility] [address] ALP [Catalytic activity/Vol] 43 U/L Normal 32-92 [facility] Comment on above: Performed By: #### C BC, LIPASE, LACTIC, CMP #### [facility] [address] ALT [Catalytic activity/Vol] 16 U/L Normal 10-60 [facility] Comment on above: Performed By: #### C BC, LIPASE, LACTIC, CMP #### [facility] [address] AST [Catalytic activity/Vol] 18 U/L Normal 10-42 [facility] Comment on above: Performed By: #### C BC, LIPASE, LACTIC, CMP #### [facility] [address] Bilirubin [Mass/Vol] 0.4 mg/dL Normal 0.3-1.2 [facility] Comment on above: Performed By: #### C BC, LIPASE, LACTIC, CMP #### [facility] [address] [place] [address] [place] Calcium [Mass/Vol] 8.1 mg/dL Low 8.2-10.2 [facility] Comment on above: Performed By: #### C BC, LIPASE, LACTIC, CMP #### [facility] [address] [place] [address] [place] Chloride [Moles/Vol] 102 mmol/L Normal 95-114 [facility] Comment on above: Performed By: #### C BC, LIPASE, LACTIC, CMP #### [facility] [address] [place] [address] [place] CO2 [Moles/Vol] 29.1 mmol/L Normal 22.0-30.0 [facility] Comment on above: Performed By: #### C BC, LIPASE, LACTIC, CMP #### [address] Creatinine [Mass/Vol] 0.51 mg/dL Normal 0.44-1.03 [facility] Comment on above: Performed By: #### C BC, LIPASE, LACTIC, CMP #### [facility] [address] Creatinine Clr Calc Pharmacy 72.99 [facility] Comment on above: Performed By: #### C BC, LIPASE, LACTIC, CMP #### [address] Estimated GFR ( Joey > 60 [facility] Comment on above: Result Comment: GFR estimated reference range: According to KDOQI guidelines, <60 ml/min/1.73m2 is sufficient to diagnose a patient with chronic kidney disease. Performed By: #### C BC, LIPASE, LACTIC, CMP #### [address] Estimated GFR (Non- Am > 60 [facility] Comment on above: Performed By: #### C BC, LIPASE, LACTIC, CMP #### [address] Globulin (S) [Mass/Vol] 2.5 g/dL [facility] Comment on above: Performed By: #### C BC, LIPASE, LACTIC, CMP #### [address] Glucose [Mass/Vol] 149 mg/dL High 70-100 [facility] Comment on above: Result Comment: Nettie om Glucose Reference Range is dependent on time and content of last meal. Glucose of more than 200 mg/dL in a nonstressed, ambulatory subject supports the diagnosis of Diabetes Mellitus. ADA recommended reference range Performed By: #### C BC, LIPASE, LACTIC, CMP #### [address] Potassium [Moles/Vol] 3.6 mmol/L Normal 3.5-5.1 [facility] Comment on above: Performed By: #### C BC, LIPASE, LACTIC, CMP #### [facility] [address] Protein [Mass/Vol] 4.7 g/dL Low 6.1-7.9 [facility] Comment on above: Performed By: #### C BC, LIPASE, LACTIC, CMP #### [facility] [address] Sodium [Moles/Vol] 140 mmol/L Normal 136-146 [facility] Comment on above: Performed By: #### C BC, LIPASE, LACTIC, CMP #### [address] Urea nitrogen [Mass/Vol] 10 mg/dL Normal 9-23 [facility] Comment on above: Performed By: #### C BC, LIPASE, LACTIC, CMP #### [address] Glucose Poct Glucometerson 1 2020 Glucose [Mass/Vol] 102 mg/dL Normal [facility] Comment on above: Result Comment: Nettie Glucose Reference Range is dependent on time and content of last meal. Glucose of more than 200 mg/dL in a nonstressed, ambulatory subject supports the diagnosis of Diabetes Mellitus. PERFORMED BY: [place] [address] PATHOLOGIST [employer] ROBYN CASAS M.D. Performed By: #### C BC, LIPASE, LACTIC, CMP #### [address] Commemt1 Glu2: Cleaned Meter Normal [facility] Comment on above: Result Comment: PERF ORMED BY: [place] [address] PATHOLOGIST [employer] ROBYN CASAS M.D. Performed By: #### C BC, LIPASE, LACTIC, CMP #### [facility] [address] [place] [address] Glucose [Mass/Vol] 123 mg/dL Normal [facility] Comment on above: Result Comment: Nettie om Glucose Reference Range is dependent on time and content of last meal. Glucose of more than 200 mg/dL in a nonstressed, ambulatory subject supports the diagnosis of Diabetes Mellitus. Performed By: #### C BC, LIPASE, LACTIC, CMP #### [address] Commemt1 Glu2: Cleaned Meter [facility] Comment on above: Result Comment: PERF ORMED BY: [place] [address] PATHOLOGIST [employer] ROBYN CASAS M.D. Performed By: #### C BC, LIPASE, LACTIC, CMP #### [address] Glucose [Mass/Vol] 125 mg/dL Normal [facility] Comment on above: Result Comment: Nettie om Glucose Reference Range is dependent on time and content of last meal. Glucose of more than 200 mg/dL in a nonstressed, ambulatory subject supports the diagnosis of Diabetes Mellitus. Performed By: #### C BC, LIPASE, LACTIC, CMP #### [address] Commemt1 Glu2: Cleaned Meter [facility] Comment on above: Result Comment: PERF ORMED BY: [place] [address] PATHOLOGIST [employer] ROBYN CASAS M.D. Performed By: #### C BC, LIPASE, LACTIC, CMP #### [place] [address] [place] Glucose [Mass/Vol] 141 mg/dL Normal [facility] Comment on above: Result Comment: Nettie om Glucose Reference Range is dependent on time and content of last meal. Glucose of more than 200 mg/dL in a nonstressed, ambulatory subject supports the diagnosis of Diabetes Mellitus. Performed By: #### C BC, LIPASE, LACTIC, CMP #### [place] [address] [place] Ironon 08-08-2021 Iron [Mass/Vol] 15 ug/dL Low 40-150 [facility] Comment on above: Performed By: #### C BC, LIPASE, LACTIC, CMP #### [facility] [address] [place] [address] Magnesiumon 08-08-2021 Magnesium [Mass/Vol] 2.0 mg/dL Normal 1.6-2.6 [facility] Comment on above: Performed By: #### C BC, LIPASE, LACTIC, CMP #### [address] Phosphoruson 08-08-2021 Phosphate [Mass/Vol] 3.2 mg/dL Normal 2.5-4.6 [facility] Comment on above: Performed By: #### C BC, LIPASE, LACTIC, CMP #### [address] Total Iron Binding Capacityo n 08-08-2021 Total Iron Binding Capacity 162 ug/dL Low 255-450 [facility] Comment on above: Performed By: #### C BC, LIPASE, LACTIC, CMP #### [address] Transferrin [Mass/Vol] 116 mg/dL Low 180-380 [facility] Comment on above: Performed By: #### C BC, LIPASE, LACTIC, CMP #### [facility] [address] [place] [address] Vit. B12/Folate Profileon Cobalamin (Vitamin B12) [Mass/Vol] 1000 pg/mL High 180-914 [facility] Comment on above: Performed By: #### C BC, LIPASE, LACTIC, CMP #### [facility] [address] [place] [address] Folate 16.3 ng/mL Normal >5.9 [facility] Comment on above: Result Comment: Anita te reference range: >5.9 ng/ml The WHO technical consultation on folate and vitamin b12 deficiencies has determined that folate concentrations less than 4 ng/ml are considered deficient. PERFORMED BY: [place] [address] PATHOLOGIST [employer] ROBYN CASAS M.D. Performed By: #### C BC, LIPASE, LACTIC, CMP #### [address] Basic Metabolic Panelon 11- Calcium [Mass/Vol] 7.9 mg/dL Low 8.2-10.2 [facility] Comment on above: Performed By: #### C BC, LIPASE, LACTIC, CMP #### [address] Chloride [Moles/Vol] 105 mmol/L Normal 95-114 [facility] Comment on above: Performed By: #### C BC, LIPASE, LACTIC, CMP #### [address] CO2 [Moles/Vol] 27.9 mmol/L Normal 22.0-30.0 [facility] Comment on above: Performed By: #### C BC, LIPASE, LACTIC, CMP #### [address] Creatinine [Mass/Vol] 0.50 mg/dL Normal 0.44-1.03 [facility] Comment on above: Performed By: #### C BC, LIPASE, LACTIC, CMP #### [address] Creatinine Clr Calc Pharmacy 72.99 [facility] Comment on above: Performed By: #### C BC, LIPASE, LACTIC, CMP #### [address] Estimated GFR ( Joey > 60 [facility] Comment on above: Result Comment: GFR estimated reference range: According to KDOQI guidelines, <60 ml/min/1.73m2 is sufficient to diagnose a patient with chronic kidney disease. Performed By: #### C BC, LIPASE, LACTIC, CMP #### [address] Estimated GFR (Non- Am > 60 [facility] Comment on above: Performed By: #### C BC, LIPASE, LACTIC, CMP #### [address] Glucose [Mass/Vol] 135 mg/dL High 70-100 [facility] Comment on above: Result Comment: [facility] Glucose Reference Range is dependent on time and content of last meal. Glucose of more than 200 mg/dL in a nonstressed, ambulatory subject supports the diagnosis of Diabetes Mellitus. ADA recommended reference range Performed By: #### C BC, LIPASE, LACTIC, CMP #### [address] Potassium [Moles/Vol] 3.5 mmol/L Normal 3.5-5.1 [facility] Comment on above: Performed By: #### C BC, LIPASE, LACTIC, CMP #### [address] Sodium [Moles/Vol] 140 mmol/L Normal 136-146 [facility] Comment on above: Performed By: #### C BC, LIPASE, LACTIC, CMP #### [address] Urea nitrogen [Mass/Vol] 10 mg/dL Normal 9-23 [facility] Comment on above: Performed By: #### C BC, LIPASE, LACTIC, CMP #### [address] Complete Blood Count Auto Di ffon 08-07-2021 Basophils (Bld) [#/Vol] 0.0 10*3/uL Normal 0.0-0.2 [facility] Comment on above: Result Comment: PERF ORMED BY: [place] [address] PATHOLOGIST [employer] ROBYN CASAS M.D. Performed By: #### C BC, LIPASE, LACTIC, CMP #### [address] Basophils/100 WBC (Bld) 0.4 % Normal . [facility] Comment on above: Performed By: #### C BC, LIPASE, LACTIC, CMP #### [address] Eosinophils (Bld) [#/Vol] 0.1 10*3/uL Normal 0.0-0.45 [facility] Comment on above: Performed By: #### C BC, LIPASE, LACTIC, CMP #### [address] Eosinophils/100 WBC (Bld) 1.4 % Normal . [facility] Comment on above: Performed By: #### C BC, LIPASE, LACTIC, CMP #### [address] Erythrocyte distribution width (RBC) [Ratio] 14.3 % Normal 11.9-15.3 [facility] Comment on above: Performed By: #### C BC, LIPASE, LACTIC, CMP #### [address] Hematocrit (Bld) [Volume fraction] 31.9 % Low 34.0-46.4 [facility] Comment on above: Performed By: #### C BC, LIPASE, LACTIC, CMP #### [address] Hemoglobin (Bld) [Mass/Vol] 10.8 g/dL Low 11.8-15.4 [facility] Comment on above: Performed By: #### C BC, LIPASE, LACTIC, CMP #### [address] Lymphocytes (Bld) [#/Vol] 1.2 10*3/uL Normal 1.00-4.8 [facility] Comment on above: Performed By: #### C BC, LIPASE, LACTIC, CMP #### [address] Lymphocytes/100 WBC (Bld) 11.7 % Normal . [facility] Comment on above: Performed By: #### C BC, LIPASE, LACTIC, CMP #### [address] MCH (RBC) [Entitic mass] 31.7 pg Normal 24.7-34.3 [facility] Comment on above: Performed By: #### C BC, LIPASE, LACTIC, CMP #### [facility] [address] MCV (RBC) [Entitic vol] 94.3 fL Normal 80-100 [facility] Comment on above: Performed By: #### C BC, LIPASE, LACTIC, CMP #### [address] Mean Corpuscular HGB Conc 33.7 g/dL Normal 32.0-35.0 [facility] Comment on above: Performed By: #### C BC, LIPASE, LACTIC, CMP #### [address] Monocytes (Bld) [#/Vol] 1.3 10*3/uL High 0.0-0.8 [facility] Comment on above: Performed By: #### C BC, LIPASE, LACTIC, CMP #### [address] Monocytes/100 WBC (Bld) 12.8 % Normal . [facility] Comment on above: Performed By: #### C BC, LIPASE, LACTIC, CMP #### [address] Neutrophils (Bld) [#/Vol] 7.8 10*3/uL High 1.8-7.7 [facility] Comment on above: Performed By: #### C BC, LIPASE, LACTIC, CMP #### [address] Neutrophils/100 WBC (Bld) 73.7 % Normal . [facility] Comment on above: Performed By: #### C BC, LIPASE, LACTIC, CMP #### [place] [address] [place] Nucleated RBC/100 WBC (Bld) [Ratio] 0.0 % Normal 0-0.5 [facility] Comment on above: Performed By: #### C BC, LIPASE, LACTIC, CMP #### [address] Platelet mean volume (Bld) [Entitic vol] 7.1 fL Normal 6.3-10.7 [facility] Comment on above: Performed By: #### C BC, LIPASE, LACTIC, CMP #### [facility] [address] Platelets (Bld) [#/Vol] 177 10*3/uL Normal 150-450 [facility] Comment on above: Performed By: #### C BC, LIPASE, LACTIC, CMP #### [facility] [address] [place] [address] RBC (Bld) [#/Vol] 3.39 10*6/uL Low 3.60-5.00 [facility] Comment on above: Performed By: #### C BC, LIPASE, LACTIC, CMP #### [address] WBC (Bld) [#/Vol] 10.5 10*3/uL Normal 4.5-11.0 [facility] Comment on above: Performed By: #### C BC, LIPASE, LACTIC, CMP #### [address] ECH echo transthoracicon ECH echo transthoracic [facility] Main [place] [address] [place] [address] Echocardiogram Signed Patient: Areli Hawkins MR#: [id number] : 1945 Acct:[id number] Age/Sex: 75 / F ADM Date: 08/01/21 Loc: Room: [address] [place] [address] Type: ADM IN Attending Dr: Tony Klein DO Ordering Provider: Leora Hendricks MD Date of Service: 08/07/21 ECH/ECH echo transthoracic: Change in heart rhythm Copies [...] VTI: 28.9 cm Transcribed By: MIRTA 08/07/21 143 Dictated By: Yaritza Canchola DO 08/07/21 1155 Signed By: 08/07/21 2276 [facility] Free T4 (Free Thyroxine)on 10-07-2020 Free T4 [Mass/Vol] 1.02 ng/dL Normal 0.61-1.12 [facility] Comment on above: Performed By: #### C BC, LIPASE, LACTIC, CMP #### [facility] [address] [place] [id number] [facility] Glucose Poct Glucometerson 1 10-07-2020 Commemt1 Glu2: Cleaned Meter [facility] Comment on above: Result Comment: PERF ORMED BY: [facility] [address] [place] [address] PATHOLOGIST [employer] ROBYN CASAS M.D. Performed By: #### C BC, LIPASE, LACTIC, CMP #### [address] Glucose [Mass/Vol] 104 mg/dL Normal [facility] Comment on above: Result Comment: Nettie om Glucose Reference Range is dependent on time and content of last meal. Glucose of more than 200 mg/dL in a nonstressed, ambulatory subject supports the diagnosis of Diabetes Mellitus. Performed By: #### C BC, LIPASE, LACTIC, CMP #### [address] Glucose [Mass/Vol] 125 mg/dL Normal [facility] Comment on above: Result Comment: [place]ett[place] om Glucose Reference Range is dependent on time and content of last meal. Glucose of more than 200 mg/dL in a nonstressed, ambulatory subject supports the diagnosis of Diabetes Mellitus. Performed By: #### C BC, LIPASE, LACTIC, CMP #### [address] Commemt1 Glu2: Cleaned Meter [facility] Comment on above: Result Comment: PERF ORMED BY: [facility] [address] [place] [address] PATHOLOGIST [employer] ROBYN CASAS M.D. Performed By: #### C BC, LIPASE, LACTIC, CMP #### [address] Glucose [Mass/Vol] 109 mg/dL Normal [facility] Comment on above: Result Comment: [place] om Glucose Reference Range is dependent on time and content of last meal. Glucose of more than 200 mg/dL in a nonstressed, ambulatory subject supports the diagnosis of Diabetes Mellitus. Performed By: #### C BC, LIPASE, LACTIC, CMP #### [address] Commemt1 Glu2: Cleaned Meter Normal [facility] Comment on above: Result Comment: PERF ORMED BY: [place] [address] PATHOLOGIST [employer] ROBYN CASAS M.D. Performed By: #### C BC, LIPASE, LACTIC, CMP #### [address] Glucose [Mass/Vol] 118 mg/dL Normal [facility] Comment on above: Result Comment: [place]ett[place] om Glucose Reference Range is dependent on time and content of last meal. Glucose of more than 200 mg/dL in a nonstressed, ambulatory subject supports the diagnosis of Diabetes Mellitus. Performed By: #### C BC, LIPASE, LACTIC, CMP #### [address] Commemt1 Glu2: Cleaned Meter [facility] Comment on above: Result Comment: PERF ORMED BY: [place] [address] PATHOLOGIST [employer] ROBYN CASAS M.D. Performed By: #### C BC, LIPASE, LACTIC, CMP #### [address] Glucose [Mass/Vol] 117 mg/dL Normal [facility] Comment on above: Result Comment: [place]ettie om Glucose Reference Range is dependent on time and content of last meal. Glucose of more than 200 mg/dL in a nonstressed, ambulatory subject supports the diagnosis of Diabetes Mellitus. Performed By: #### C BC, LIPASE, LACTIC, CMP #### [address] Magnesiumon 08-07-2021 Magnesium [Mass/Vol] 2.0 mg/dL Normal 1.6-2.6 [facility] Comment on above: Performed By: #### C BC, LIPASE, LACTIC, CMP #### [address] Phosphoruson 08-07-2021 Phosphate [Mass/Vol] 2.9 mg/dL Normal 2.5-4.6 [facility] Comment on above: Performed By: #### C BC, LIPASE, LACTIC, CMP #### [address] Thyroid Stimulating Hormoneo n 08-07-2021 TSH Qn 1.34 m[IU]/L Normal 0.45-5.33 [facility] Comment on above: Result Comment: PERF ORMED BY: [place] [address] PATHOLOGIST [employer] ROBYN CASAS M.D. Performed By: #### C BC, LIPASE, LACTIC, CMP #### [address] Basic Metabolic Panelon 07-24 Calcium [Mass/Vol] 8.2 mg/dL Normal 8.2-10.2 [facility] Comment on above: Performed By: #### C BC, LIPASE, LACTIC, CMP #### [address] Chloride [Moles/Vol] 110 mmol/L Normal 95-114 [facility] Comment on above: Performed By: #### C BC, LIPASE, LACTIC, CMP #### [address] CO2 [Moles/Vol] 25.8 mmol/L Normal 22.0-30.0 [facility] Comment on above: Performed By: #### C BC, LIPASE, LACTIC, CMP #### [address] Creatinine [Mass/Vol] 0.55 mg/dL Normal 0.44-1.03 [facility] Comment on above: Performed By: #### C BC, LIPASE, LACTIC, CMP #### [address] [place] [address] [place] Creatinine Clr Calc Pharmacy 72.55 [facility] Comment on above: Performed By: #### C BC, LIPASE, LACTIC, CMP #### [address] Estimated GFR ( Joey > 60 [facility] Comment on above: Result Comment: GFR estimated reference range: According to KDOQI guidelines, <60 ml/min/1.73m2 is sufficient to diagnose a patient with chronic kidney disease. Performed By: #### C BC, LIPASE, LACTIC, CMP #### [address] Estimated GFR (Non- Am > 60 [facility] Comment on above: Performed By: #### C BC, LIPASE, LACTIC, CMP #### [address] Glucose [Mass/Vol] 170 mg/dL High 70-100 [facility] Comment on above: Result Comment: [place]ettie Glucose Reference Range is dependent on time and content of last meal. Glucose of more than 200 mg/dL in a nonstressed, ambulatory subject supports the diagnosis of Diabetes Mellitus. ADA recommended reference range Performed By: #### C BC, LIPASE, LACTIC, CMP #### [address] Potassium [Moles/Vol] 3.3 mmol/L Low 3.5-5.1 [facility] Comment on above: Performed By: #### C BC, LIPASE, LACTIC, CMP #### [address] Sodium [Moles/Vol] 144 mmol/L Normal 136-146 [facility] Comment on above: Performed By: #### C BC, LIPASE, LACTIC, CMP #### [address] Urea nitrogen [Mass/Vol] 7 mg/dL Low 9-23 [facility] Comment on above: Performed By: #### C BC, LIPASE, LACTIC, CMP #### [address] ECG 12 lead ECGon 08-06-2021 ECG 12 lead ECG [facility] Main [place] [address] [place] [address] Electrocardiograph Report Signed Patient: Areli Hawkins MR#: [id number] : 1945 Acct:[id number] Age/Sex: 75 / F ADM Date: 08/01/21 Loc: Room: [address] [place] [address] Type: ADM IN Attending Dr: Tony Klein [...] By Alvin Pardo DO 08/07 1313 Normal [facility] Glucose Poct Glucometerson 1 10-06-2020 Glucose [Mass/Vol] 139 mg/dL Normal [facility] Comment on above: Result Comment: [facility] Glucose Reference Range is dependent on time and content of last meal. Glucose of more than 200 mg/dL in a nonstressed, ambulatory subject supports the diagnosis of Diabetes Mellitus. PERFORMED BY: [place] [address] PATHOLOGIST [employer] ROBYN CASAS M.D. Performed By: #### C BC, LIPASE, LACTIC, CMP #### [address] Commemt1 Glu2: Cleaned Meter Normal [facility] Comment on above: Result Comment: PERF ORMED BY: [place] [address] PATHOLOGIST [employer] ROBYN CASAS M.D. Performed By: #### C BC, LIPASE, LACTIC, CMP #### [address] Glucose [Mass/Vol] 180 mg/dL Normal [facility] Comment on above: Result Comment: [place]ett[place] om Glucose Reference Range is dependent on time and content of last meal. Glucose of more than 200 mg/dL in a nonstressed, ambulatory subject supports the diagnosis of Diabetes Mellitus. Performed By: #### C BC, LIPASE, LACTIC, CMP #### [address] Commemt1 Glu2: Cleaned Meter Normal [facility] Comment on above: Result Comment: PERF ORMED BY: [place] [address] PATHOLOGIST [employer] ROBYN CASAS M.D. Performed By: #### C BC, LIPASE, LACTIC, CMP #### [address] Glucose [Mass/Vol] 145 mg/dL Normal [facility] Comment on above: Result Comment: [place]ett[place] om Glucose Reference Range is dependent on time and content of last meal. Glucose of more than 200 mg/dL in a nonstressed, ambulatory subject supports the diagnosis of Diabetes Mellitus. Performed By: #### C BC, LIPASE, LACTIC, CMP #### [address] Glucose [Mass/Vol] 173 mg/dL Normal [facility] Comment on above: Result Comment: [place] om Glucose Reference Range is dependent on time and content of last meal. Glucose of more than 200 mg/dL in a nonstressed, ambulatory subject supports the diagnosis of Diabetes Mellitus. PERFORMED BY: [place] [address] PATHOLOGIST [employer] ROBYN CASAS M.D. Performed By: #### C BC, LIPASE, LACTIC, CMP #### [address] Hepatic Panelon 08-06-2021 Albumin [Mass/Vol] 2.3 g/dL Low 3.2-5.5 [facility] Comment on above: Performed By: #### C BC, LIPASE, LACTIC, CMP #### [facility] [address] Albumin/Globulin [Mass ratio] 1.0 {ratio} Normal [facility] Comment on above: Performed By: #### C BC, LIPASE, LACTIC, CMP #### [facility] [address] ALP [Catalytic activity/Vol] 38 U/L Normal 32-92 [facility] Comment on above: Performed By: #### C BC, LIPASE, LACTIC, CMP #### [facility] [address] ALT [Catalytic activity/Vol] 21 U/L Normal 10-60 [facility] Comment on above: Performed By: #### C BC, LIPASE, LACTIC, CMP #### [facility] [address] AST [Catalytic activity/Vol] 21 U/L Normal 10-42 [facility] Comment on above: Performed By: #### C BC, LIPASE, LACTIC, CMP #### [address] Bilirubin [Mass/Vol] 0.4 mg/dL Normal 0.3-1.2 [facility] Comment on above: Performed By: #### C BC, LIPASE, LACTIC, CMP #### [facility] [address] Bilirubin,Indirect 0.3 mg/dL Normal [facility] Comment on above: Performed By: #### C BC, LIPASE, LACTIC, CMP #### [facility] [address] Bilirubin.indirect [Mass/Vol] 0.1 mg/dL Normal 0.0-0.4 [facility] Comment on above: Performed By: #### C BC, LIPASE, LACTIC, CMP #### [facility] [address] Globulin (S) [Mass/Vol] 2.4 g/dL Normal [facility] Comment on above: Performed By: #### C BC, LIPASE, LACTIC, CMP #### [facility] [address] Protein [Mass/Vol] 4.7 g/dL Low 6.1-7.9 [facility] Comment on above: Performed By: #### C BC, LIPASE, LACTIC, CMP #### [facility] [address] [place] [address] Magnesiumon 08-06-2021 Magnesium [Mass/Vol] 2.1 mg/dL Normal 1.6-2.6 [facility] Comment on above: Result Comment: PERF ORMED BY: [place] [address] PATHOLOGIST [employer] ROBYN CASAS M.D. Performed By: #### C BC, LIPASE, LACTIC, CMP #### [facility] [address] [place] [address] Phosphoruson 08-06-2021 Phosphate [Mass/Vol] 1.8 mg/dL Low 2.5-4.6 [facility] Comment on above: Performed By: #### C BC, LIPASE, LACTIC, CMP #### [facility] [address] [place] [address] Scan and CBCon 08-06-2021 Additional Comments Normal [facility] Comment on above: Result Comment: Abso lute monocytosis is commonly reactive in nature. However, if unexplained, recommend follow-up CBC in 3 months to evaluate for persistence. PERFORMED BY: [place] [address] PATHOLOGIST [employer] ROBYN CASAS M.D. Performed By: #### C BC, LIPASE, LACTIC, CMP #### [facility] [address] [place] [address] Basophils (Bld) [#/Vol] 0.0 10*3/uL Normal 0.0-0.2 [facility] Comment on above: Performed By: #### C BC, LIPASE, LACTIC, CMP #### [address] Basophils/100 WBC (Bld) 0.3 % Normal . [facility] Comment on above: Performed By: #### C BC, LIPASE, LACTIC, CMP #### [address] Eosinophils (Bld) [#/Vol] 0.1 10*3/uL Normal 0.0-0.45 [facility] Comment on above: Performed By: #### C BC, LIPASE, LACTIC, CMP #### [address] Eosinophils/100 WBC (Bld) 0.6 % Normal . [facility] Comment on above: Performed By: #### C BC, LIPASE, LACTIC, CMP #### [address] Erythrocyte distribution width (RBC) [Ratio] 14.2 % Normal 11.9-15.3 [facility] Comment on above: Performed By: #### C BC, LIPASE, LACTIC, CMP #### [address] Hematocrit (Bld) [Volume fraction] 32.5 % Low 34.0-46.4 [facility] Comment on above: Performed By: #### C BC, LIPASE, LACTIC, CMP #### [address] Hemoglobin (Bld) [Mass/Vol] 10.9 g/dL Low 11.8-15.4 [facility] Comment on above: Performed By: #### C BC, LIPASE, LACTIC, CMP #### [place] [address] [place] Lymphocytes (Bld) [#/Vol] 1.3 10*3/uL Normal 1.00-4.8 [facility] Comment on above: Performed By: #### C BC, LIPASE, LACTIC, CMP #### [place] [address] [place] Lymphocytes/100 WBC (Bld) 12.8 % Normal . [facility] Comment on above: Performed By: #### C BC, LIPASE, LACTIC, CMP #### [address] MCH (RBC) [Entitic mass] 31.6 pg Normal 24.7-34.3 [facility] Comment on above: Performed By: #### C BC, LIPASE, LACTIC, CMP #### [address] MCV (RBC) [Entitic vol] 94.5 fL Normal 80-100 [facility] Comment on above: Performed By: #### C BC, LIPASE, LACTIC, CMP #### [address] Mean Corpuscular HGB Conc 33.5 g/dL Normal 32.0-35.0 [facility] Comment on above: Performed By: #### C BC, LIPASE, LACTIC, CMP #### [address] Monocytes (Bld) [#/Vol] 1.6 10*3/uL High 0.0-0.8 [facility] Comment on above: Performed By: #### C BC, LIPASE, LACTIC, CMP #### [address] Monocytes/100 WBC (Bld) 16.0 % Normal . [facility] Comment on above: Performed By: #### C BC, LIPASE, LACTIC, CMP #### [address] Neutrophils (Bld) [#/Vol] 6.9 10*3/uL Normal 1.8-7.7 [facility] Comment on above: Performed By: #### C BC, LIPASE, LACTIC, CMP #### [address] Neutrophils/100 WBC (Bld) 70.3 % Normal . [facility] Comment on above: Performed By: #### C BC, LIPASE, LACTIC, CMP #### [address] Nucleated RBC/100 WBC (Bld) [Ratio] 0.1 % Normal 0-0.5 [facility] Comment on above: Performed By: #### C BC, LIPASE, LACTIC, CMP #### [address] Platelet Estimate Normal Normal Normal [facility] Comment on above: Performed By: #### C BC, LIPASE, LACTIC, CMP #### [address] Platelet mean volume (Bld) [Entitic vol] 7.3 fL Normal 6.3-10.7 [facility] Comment on above: Performed By: #### C BC, LIPASE, LACTIC, CMP #### [address] Platelet Morphology Normal Normal Normal [facility] Comment on above: Performed By: #### C BC, LIPASE, LACTIC, CMP #### [address] Platelets (Bld) [#/Vol] 183 10*3/uL Normal 150-450 [facility] Comment on above: Performed By: #### C BC, LIPASE, LACTIC, CMP #### [address] RBC (Bld) [#/Vol] 3.44 10*6/uL Low 3.60-5.00 [facility] Comment on above: Performed By: #### C BC, LIPASE, LACTIC, CMP #### [address] RBC morphology finding Nom (Bld) Normal Normal [facility] Comment on above: Performed By: #### C BC, LIPASE, LACTIC, CMP #### [address] WBC (Bld) [#/Vol] 9.9 10*3/uL Normal 4.5-11.0 [facility] Comment on above: Performed By: #### C BC, LIPASE, LACTIC, CMP #### [address] [address] [place] Basic Metabolic Panelon 11-1 Calcium [Mass/Vol] 8.0 mg/dL Low 8.2-10.2 [facility] Comment on above: Order Comment: Name Collection Type:: Clean-Voided Midstream Performed By: #### U A #### [facility] [address] [place] [address] Chloride [Moles/Vol] 112 mmol/L Normal 95-114 [facility] Comment on above: Order Comment: Name Collection Type:: Clean-Voided Midstream Performed By: #### U A #### [facility] [address] [place] [address] CO2 [Moles/Vol] 20.1 mmol/L Low 22.0-30.0 [facility] Comment on above: Order Comment: Name Collection Type:: Clean-Voided Midstream Performed By: #### U A #### [facility] [address] [place] [address] Creatinine [Mass/Vol] 0.75 mg/dL Normal 0.44-1.03 [facility] Comment on above: Order Comment: Name Collection Type:: Clean-Voided Midstream Performed By: #### U A #### [facility] [address] [place] [address] Creatinine Clr Calc Pharmacy 71.76 [facility] Comment on above: Order Comment: Name Collection Type:: Clean-Voided Midstream Performed By: #### U A #### [facility] [address] [place] [address] Estimated GFR ( Joey > 60 [facility] Comment on above: Order Comment: Name Collection Type:: Clean-Voided Midstream Result Comment: GFR estimated reference range: According to KDOQI guidelines, <60 ml/min/1.73m2 is sufficient to diagnose a patient with chronic kidney disease. Performed By: #### U A #### [facility] [address] [place] [address] Estimated GFR (Non- Am > 60 [facility] Comment on above: Order Comment: Name Collection Type:: Clean-Voided Midstream Performed By: #### U A #### [address] Glucose [Mass/Vol] 114 mg/dL High 70-100 [facility] Comment on above: Order Comment: Name Collection Type:: Clean-Voided Midstream Result Comment: Nettie Glucose Reference Range is dependent on time and content of last meal. Glucose of more than 200 mg/dL in a nonstressed, ambulatory subject supports the diagnosis of Diabetes Mellitus. ADA recommended reference range Performed By: #### U A #### [address] Potassium [Moles/Vol] 3.4 mmol/L Low 3.5-5.1 [facility] Comment on above: Order Comment: Name Collection Type:: Clean-Voided Midstream Performed By: #### U A #### [address] Sodium [Moles/Vol] 143 mmol/L Normal 136-146 [facility] Comment on above: Order Comment: Name Collection Type:: Clean-Voided Midstream Performed By: #### U A #### [address] Urea nitrogen [Mass/Vol] 5 mg/dL Low 9-23 [facility] Comment on above: Order Comment: Name Collection Type:: Clean-Voided Midstream Performed By: #### U A #### [address] Complete Blood Count Auto Di ffon 08-05-2021 Basophils (Bld) [#/Vol] 0.0 10*3/uL Normal 0.0-0.2 [facility] Comment on above: Result Comment: PERF ORMED BY: [place] [address] PATHOLOGIST [employer] ROBYN CASAS M.D. Performed By: #### U A #### [place] [address] [place] Basophils/100 WBC (Bld) 0.0 % Normal . [facility] Comment on above: Performed By: #### U A #### [address] Eosinophils (Bld) [#/Vol] 0.0 10*3/uL Normal 0.0-0.45 [facility] Comment on above: Performed By: #### U A #### [address] Eosinophils/100 WBC (Bld) 0.0 % Normal . [facility] Comment on above: Performed By: #### U A #### [address] Erythrocyte distribution width (RBC) [Ratio] 14.3 % Normal 11.9-15.3 [facility] Comment on above: Performed By: #### U A #### [address] Hematocrit (Bld) [Volume fraction] 37.1 % Normal 34.0-46.4 [facility] Comment on above: Performed By: #### U A #### [address] Hemoglobin (Bld) [Mass/Vol] 12.2 g/dL Normal 11.8-15.4 [facility] Comment on above: Performed By: #### U A #### [address] Lymphocytes (Bld) [#/Vol] 0.5 10*3/uL Low 1.00-4.8 [facility] Comment on above: Performed By: #### U A #### [address] Lymphocytes/100 WBC (Bld) 5.0 % Normal . [facility] Comment on above: Performed By: #### U A #### [address] MCH (RBC) [Entitic mass] 31.5 pg Normal 24.7-34.3 [facility] Comment on above: Performed By: #### U A #### [address] MCV (RBC) [Entitic vol] 96.1 fL Normal 80-100 [facility] Comment on above: Performed By: #### U A #### [address] Mean Corpuscular HGB Conc 32.8 g/dL Normal 32.0-35.0 [facility] Comment on above: Performed By: #### U A #### [address] Monocytes (Bld) [#/Vol] 1.4 10*3/uL High 0.0-0.8 [facility] Comment on above: Performed By: #### U A #### [address] Monocytes/100 WBC (Bld) 13.9 % Normal . [facility] Comment on above: Performed By: #### U A #### [address] Neutrophils (Bld) [#/Vol] 8.4 10*3/uL High 1.8-7.7 [facility] Comment on above: Performed By: #### U A #### [address] Neutrophils/100 WBC (Bld) 81.1 % Normal . [facility] Comment on above: Performed By: #### U A #### [address] Nucleated RBC/100 WBC (Bld) [Ratio] 0.0 % Normal 0-0.5 [facility] Comment on above: Performed By: #### U A #### [address] Platelet mean volume (Bld) [Entitic vol] 7.6 fL Normal 6.3-10.7 [facility] Comment on above: Performed By: #### U A #### [address] Platelets (Bld) [#/Vol] 182 10*3/uL Normal 150-450 [facility] Comment on above: Performed By: #### U A #### [facility] [address] RBC (Bld) [#/Vol] 3.86 10*6/uL Normal 3.60-5.00 [facility] Comment on above: Performed By: #### U A #### [facility] [address] WBC (Bld) [#/Vol] 10.4 10*3/uL Normal 4.5-11.0 [facility] Comment on above: Performed By: #### U A #### [address] Glucose Poct Glucometerson 1 10-05-2020 Commemt1 Glu2: Cleaned Meter [facility] Comment on above: Result Comment: PERF ORMED BY: [place] [address] PATHOLOGIST [employer] ROBYN CASAS M.D. Performed By: #### U A #### [address] Glucose [Mass/Vol] 97 mg/dL Normal [facility] Comment on above: Result Comment: Nettie Glucose Reference Range is dependent on time and content of last meal. Glucose of more than 200 mg/dL in a nonstressed, ambulatory subject supports the diagnosis of Diabetes Mellitus. Performed By: #### U A #### [address] Commemt1 Glu2: Cleaned Meter Normal [facility] Comment on above: Result Comment: PERF ORMED BY: [place] [address] PATHOLOGIST [employer] ROBYN CASAS M.D. Performed By: #### U A #### [address] Glucose [Mass/Vol] 82 mg/dL Normal [facility] Comment on above: Result Comment: Nettie om Glucose Reference Range is dependent on time and content of last meal. Glucose of more than 200 mg/dL in a nonstressed, ambulatory subject supports the diagnosis of Diabetes Mellitus. Performed By: #### U A #### [address] Glucose [Mass/Vol] 101 mg/dL Normal [facility] Comment on above: Result Comment: Nettie om Glucose Reference Range is dependent on time and content of last meal. Glucose of more than 200 mg/dL in a nonstressed, ambulatory subject supports the diagnosis of Diabetes Mellitus. PERFORMED BY: [place] [address] PATHOLOGIST [employer] ROBYN CASAS M.D. Performed By: #### U A #### [address] Prealbuminon 08-05-2021 Prealbumin [Mass/Vol] 7.8 mg/dL Low 18.0-38.0 [facility] Comment on above: Order Comment: Name Collection Type:: Clean-Voided Midstream Result Comment: PERF ORMED BY: [place] [address] PATHOLOGIST [employer] ROBYN CASAS M.D. Performed By: #### U A #### [address] Basic Metabolic Panelon 07-24 Calcium [Mass/Vol] 8.8 mg/dL Normal 8.2-10.2 [facility] Comment on above: Performed By: #### U A #### [facility] [address] [place] [address] [place] Chloride [Moles/Vol] 112 mmol/L Normal 95-114 [facility] Comment on above: Performed By: #### U A #### [address] CO2 [Moles/Vol] 20.1 mmol/L Low 22.0-30.0 [facility] Comment on above: Performed By: #### U A #### [address] Creatinine [Mass/Vol] 0.76 mg/dL Normal 0.44-1.03 [facility] Comment on above: Performed By: #### U A #### [address] Creatinine Clr Calc Pharmacy 71.76 Normal [facility] Comment on above: Result Comment: PERF ORMED BY: [place] [address] PATHOLOGIST [employer] ROBYN CASAS M.D. Performed By: #### U A #### [address] Estimated GFR ( Joey > 60 Normal [facility] Comment on above: Result Comment: GFR estimated reference range: According to KDOQI guidelines, <60 ml/min/1.73m2 is sufficient to diagnose a patient with chronic kidney disease. Performed By: #### U A #### [address] Estimated GFR (Non- Am > 60 Normal [facility] Comment on above: Performed By: #### U A #### [address] Glucose [Mass/Vol] 81 mg/dL Normal 70-100 [facility] Comment on above: Result Comment: Nettie om Glucose Reference Range is dependent on time and content of last meal. Glucose of more than 200 mg/dL in a nonstressed, ambulatory subject supports the diagnosis of Diabetes Mellitus. ADA recommended reference range Performed By: #### U A #### [address] Potassium [Moles/Vol] 3.2 mmol/L Low 3.5-5.1 [facility] Comment on above: Performed By: #### U A #### [address] Sodium [Moles/Vol] 146 mmol/L Normal 136-146 [facility] Comment on above: Performed By: #### U A #### [address] Urea nitrogen [Mass/Vol] 7 mg/dL Low 06-15 [facility] Comment on above: Performed By: #### U A #### [address] Complete Blood Count Auto Di ffon 08-04-2021 Basophils (Bld) [#/Vol] 0.0 10*3/uL Normal 0.0-0.2 [facility] Comment on above: Result Comment: PERF ORMED BY: [place] [address] PATHOLOGIST [employer] ROBYN CASAS M.D. Performed By: #### U A #### [address] Basophils/100 WBC (Bld) 0.2 % Normal . [facility] Comment on above: Performed By: #### U A #### [address] Eosinophils (Bld) [#/Vol] 0.0 10*3/uL Normal 0.0-0.45 [facility] Comment on above: Performed By: #### U A #### [address] Eosinophils/100 WBC (Bld) 0.5 % Normal . [facility] Comment on above: Performed By: #### U A #### [address] Erythrocyte distribution width (RBC) [Ratio] 14.3 % Normal 11.9-15.3 [facility] Comment on above: Performed By: #### U A #### [address] Hematocrit (Bld) [Volume fraction] 40.2 % Normal 34.0-46.4 [facility] Comment on above: Performed By: #### U A #### [address] Hemoglobin (Bld) [Mass/Vol] 13.1 g/dL Normal 11.8-15.4 [facility] Comment on above: Performed By: #### U A #### [address] Lymphocytes (Bld) [#/Vol] 0.8 10*3/uL Low 1.00-4.8 [facility] Comment on above: Performed By: #### U A #### [address] Lymphocytes/100 WBC (Bld) 13.1 % Normal . [facility] Comment on above: Performed By: #### U A #### [address] MCH (RBC) [Entitic mass] 31.5 pg Normal 24.7-34.3 [facility] Comment on above: Performed By: #### U A #### [address] MCV (RBC) [Entitic vol] 96.6 fL Normal 80-100 [facility] Comment on above: Performed By: #### U A #### [address] Mean Corpuscular HGB Conc 32.6 g/dL Normal 32.0-35.0 [facility] Comment on above: Performed By: #### U A #### [address] Monocytes (Bld) [#/Vol] 1.0 10*3/uL High 0.0-0.8 [facility] Comment on above: Performed By: #### U A #### [address] Monocytes/100 WBC (Bld) 16.4 % Normal . [facility] Comment on above: Performed By: #### U A #### [address] Neutrophils (Bld) [#/Vol] 4.2 10*3/uL Normal 1.8-7.7 [facility] Comment on above: Performed By: #### U A #### [facility] [address] [place] [address] Neutrophils/100 WBC (Bld) 69.8 % Normal . [facility] Comment on above: Performed By: #### U A #### [address] Nucleated RBC/100 WBC (Bld) [Ratio] 0.0 % Normal 0-0.5 [facility] Comment on above: Performed By: #### U A #### [address] Platelet mean volume (Bld) [Entitic vol] 8.1 fL Normal 6.3-10.7 [facility] Comment on above: Performed By: #### U A #### [address] Platelets (Bld) [#/Vol] 196 10*3/uL Normal 150-450 [facility] Comment on above: Performed By: #### U A #### [address] RBC (Bld) [#/Vol] 4.16 10*6/uL Normal 3.60-5.00 [facility] Comment on above: Performed By: #### U A #### [address] WBC (Bld) [#/Vol] 6.0 10*3/uL Normal 4.5-11.0 [facility] Comment on above: Performed By: #### U A #### [place] [address] [place] XR KUBon 08-04-2021 XR KUB [facility] Main [place] [address] [place] [address] XRay Report Signed Patient: Areli Hawkins MR#: [id number] : 1945 Acct:[id number] Age/Sex: 75 / F ADM Date: 08/01/21 Loc: Room: [address] [place] [address] Type: ADM IN Attending Dr: Indio Puga [...] Allan Salinas M.D.08/04/2021 8:32 AM Dictation Location: [place] [address] Transcribed By: [facility] 08/04/21831 Dictated By: Allan Salinas DO 08/04/2129 Signed By: 08/04/21 0832 [facility] XR chest 1V portableon 08-04 XR chest 1V portable [facility] [place] [address] XRay Report Signed Patient: Areli Hawkins MR#: [id number] : 1945 Acct:[id number] Age/Sex: 75 / F ADM Date: 08/01/21 Loc: Room: [address] [place] [address] Type: ADM IN Attending Dr: Indio Puga [...] Lucas Jr., M.D.08/04/2021 6:52 PM Dictation Location: [place] [address] Transcribed By: [facility] 08/04/211851 Dictated By: Kvng Lucas Jr, MD 08/04/211849 Signed By: 08/04/211851 [facility] Basic Metabolic Panelon 07-24 Calcium [Mass/Vol] 8.7 mg/dL Normal 8.2-10.2 [facility] Comment on above: Performed By: #### B MP, CBC ####[facility] [id number] [place] [id number] [place] Chloride [Moles/Vol] 109 mmol/L Normal 95-114 [facility] Comment on above: Performed By: #### B MP, CBC ####[facility] [address] [place] [address] [facility] CO2 [Moles/Vol] 20.3 mmol/L Low 22.0-30.0 [facility] Comment on above: Performed By: #### B MP, CBC ####[place] [address] [place] [address] [facility] Creatinine [Mass/Vol] 0.78 mg/dL Normal 0.44-1.03 [facility] Comment on above: Performed By: #### B MP, CBC ####[facility] [address] [place] [address] [place] Creatinine Clr Calc Pharmacy 71.76 [facility] Comment on above: Result Comment: PERF ORMED BY: [facility] [address] [place] [id number] PATHOLOGIST [employer] ROBYN CASAS M.D. Performed By: #### B MP, CBC ####[facility] [address] [place] [id number] [facility] Estimated GFR ( Joey > 60 [facility] Comment on above: Result Comment: GFR estimated reference range: According to KDOQI guidelines, <60 ml/min/1.73m2 is sufficient to diagnose a patient with chronic kidney disease. Performed By: #### B MP, CBC ####[place] [id number] [facility] Estimated GFR (Non- Am > 60 Normal [facility] Comment on above: Performed By: #### B MP, CBC ####[address] Glucose [Mass/Vol] 101 mg/dL High 70-100 [facility] Comment on above: Result Comment: [facility] Glucose Reference Range is dependent on time and content of last meal. Glucose of more than 200 mg/dL in a nonstressed, ambulatory subject supports the diagnosis of Diabetes Mellitus. ADA recommended reference range Performed By: #### B MP, CBC ####[address] Potassium [Moles/Vol] 3.8 mmol/L Normal 3.5-5.1 [facility] Comment on above: Performed By: #### B MP, CBC ####[address] Sodium [Moles/Vol] 143 mmol/L Normal 136-146 [facility] Comment on above: Performed By: #### B MP, CBC ####[address] Urea nitrogen [Mass/Vol] 6 mg/dL Low 9-23 [facility] Comment on above: Performed By: #### B MP, CBC ####[address] Complete Blood Count Auto Di ffon 08-03-2021 Basophils (Bld) [#/Vol] 0.0 10*3/uL Normal 0.0-0.2 [facility] Comment on above: Result Comment: PERF ORMED BY: [facility] [address] [address] PATHOLOGIST [employer] ROBYN CASAS M.D. Performed By: #### B MP, CBC ####[address] Basophils/100 WBC (Bld) 0.2 % Normal . [facility] Comment on above: Performed By: #### B MP, CBC ####[address] Eosinophils (Bld) [#/Vol] 0.0 10*3/uL Normal 0.0-0.45 [facility] Comment on above: Performed By: #### B MP, CBC ####[address] Eosinophils/100 WBC (Bld) 0.2 % Normal . [facility] Comment on above: Performed By: #### B MP, CBC ####[address] Erythrocyte distribution width (RBC) [Ratio] 14.4 % Normal 11.9-15.3 [facility] Comment on above: Performed By: #### B MP, CBC ####[address] Hematocrit (Bld) [Volume fraction] 39.7 % Normal 34.0-46.4 [facility] Comment on above: Performed By: #### B MP, CBC ####[address] Hemoglobin (Bld) [Mass/Vol] 13.2 g/dL Normal 11.8-15.4 [facility] Comment on above: Performed By: #### B MP, CBC ####[address] Lymphocytes (Bld) [#/Vol] 0.7 10*3/uL Low 1.00-4.8 [facility] Comment on above: Performed By: #### B MP, CBC ####[address] Lymphocytes/100 WBC (Bld) 7.0 % Normal . [facility] Comment on above: Performed By: #### B MP, CBC ####[address] MCH (RBC) [Entitic mass] 31.6 pg Normal 24.7-34.3 [facility] Comment on above: Performed By: #### B MP, CBC ####[address] MCV (RBC) [Entitic vol] 95.5 fL Normal 80-100 [facility] Comment on above: Performed By: #### B MP, CBC ####[address] Mean Corpuscular HGB Conc 33.1 g/dL Normal 32.0-35.0 [facility] Comment on above: Performed By: #### B MP, CBC ####[address] Monocytes (Bld) [#/Vol] 1.2 10*3/uL High 0.0-0.8 [facility] Comment on above: Performed By: #### B MP, CBC ####[address] Monocytes/100 WBC (Bld) 12.3 % Normal . [facility] Comment on above: Performed By: #### B MP, CBC ####[address] Neutrophils (Bld) [#/Vol] 8.1 10*3/uL High 1.8-7.7 [facility] Comment on above: Performed By: #### B MP, CBC ####[address] Neutrophils/100 WBC (Bld) 80.3 % Normal . [facility] Comment on above: Performed By: #### B MP, CBC ####[address] Nucleated RBC/100 WBC (Bld) [Ratio] 0.0 % Normal 0-0.5 [facility] Comment on above: Performed By: #### B MP, CBC ####[address] Platelet mean volume (Bld) [Entitic vol] 7.8 fL Normal 6.3-10.7 [facility] Comment on above: Performed By: #### B MP, CBC ####[place] [id number] Platelets (Bld) [#/Vol] 210 10*3/uL Normal 150-450 [facility] Comment on above: Performed By: #### B MP, CBC ####[address] RBC (Bld) [#/Vol] 4.16 10*6/uL Normal 3.60-5.00 [facility] Comment on above: Performed By: #### B MP, CBC ####[place] [id number] WBC (Bld) [#/Vol] 10.1 10*3/uL Normal 4.5-11.0 [facility] Comment on above: Performed By: #### B MP, CBC ####[address] XR abdomen min 2Von 08-03-20 21 XR abdomen min 2V [facility] Main [place] [address] [place] [address] XRay Report Signed Patient: Areli Hawkins MR#: [id number] : 1945 Acct:[id number] Age/Sex: 75 / F ADM Date: 08/01/21 Loc: Room: [address] [place] [address] Type: ADM IN Attending Dr: Indio Puga [...] Harsh Pickett M.D.08/03/2021 8:21 AM Dictation Location: [place] [address] Transcribed By: [facility] 08/03/21820 Dictated By: Harsh Pickett MD 08/03/21814 Signed By: 08/03/21820 [facility] Basic Metabolic Panelon 07-24 Calcium [Mass/Vol] 8.9 mg/dL Normal 8.2-10.2 [facility] Comment on above: Performed By: #### Michael Mendez, BMP ####[place] [id number] [place] [id number] [place] Chloride [Moles/Vol] 109 mmol/L Normal 95-114 [facility] Comment on above: Performed By: #### Michael Mendez, BMP ####[place] [address] [place] [address] [facility] CO2 [Moles/Vol] 19.9 mmol/L Low 22.0-30.0 [facility] Comment on above: Performed By: #### Michael Mendez, BMP ####[place] [address] [place] [address] [facility] Creatinine [Mass/Vol] 0.70 mg/dL Normal 0.44-1.03 [facility] Comment on above: Performed By: #### Michael Mendez, BMP ####[facility] [place] [address] [place] Creatinine Clr Calc Pharmacy 71.76 [facility] Comment on above: Performed By: #### Michael Mendez, BMP ####[facility] [place] [address] [place] Estimated GFR ( Joey > 60 [facility] Comment on above: Result Comment: GFR estimated reference range: According to KDOQI guidelines, <60 ml/min/1.73m2 is sufficient to diagnose a patient with chronic kidney disease. Performed By: #### Michael Mendez, BMP ####[place] [id number] [place] [id number] [facility] Estimated GFR (Non- Am > 60 Normal [facility] Comment on above: Performed By: #### M Vanessa, BMP ####[address] [address] [facility] Glucose [Mass/Vol] 99 mg/dL Normal 70-100 [facility] Comment on above: Result Comment: Nettie Glucose Reference Range is dependent on time and content of last meal. Glucose of more than 200 mg/dL in a nonstressed, ambulatory subject supports the diagnosis of Diabetes Mellitus. ADA recommended reference range Performed By: #### Michael Mendez, BMP ####[place] [id number] [place] [id number] [facility] Potassium [Moles/Vol] 3.4 mmol/L Low 3.5-5.1 [facility] Comment on above: Performed By: #### Michael Mendez, BMP ####[place] [id number] [facility] Sodium [Moles/Vol] 141 mmol/L Normal 136-146 [facility] Comment on above: Performed By: #### Michael Mendez, BMP ####[place] [id number] [facility] Urea nitrogen [Mass/Vol] 5 mg/dL Low 9-23 [facility] Comment on above: Performed By: #### Michael Mendez, BMP ####[place] [id number] [facility] Complete Blood Count Auto Di ffon 08-02-2021 Basophils (Bld) [#/Vol] 0.0 10*3/uL Normal 0.0-0.2 [facility] Comment on above: Order Comment: Speci men clotted. Redraw requested. Notified Shannen HENAO. Will notify Juwan Gu RN. Result Comment: PERF ORMED BY: [facility] [address] [place] [id number] PATHOLOGIST [employer] ROBYN CASAS M.D. Performed By: #### C BC ####[address] Basophils/100 WBC (Bld) 0.1 % Normal . [facility] Comment on above: Order Comment: Speci men clotted. Redraw requested. Notified Shannen HENAO. Will notify Juwan Gu RN. Performed By: #### C BC ####[address] Eosinophils (Bld) [#/Vol] 0.0 10*3/uL Normal 0.0-0.45 [facility] Comment on above: Order Comment: Speci men clotted. Redraw requested. Notified Shannen HENAO. Will notify Juwan Gu RN. Performed By: #### C BC ####[address] Eosinophils/100 WBC (Bld) 0.3 % Normal . [facility] Comment on above: Order Comment: Speci men clotted. Redraw requested. Notified Shannen HENAO. Will notify Juwan Gu RN. Performed By: #### C BC ####[address] Erythrocyte distribution width (RBC) [Ratio] 14.2 % Normal 11.9-15.3 [facility] Comment on above: Order Comment: Speci men clotted. Redraw requested. Notified Shannen HENAO. Will notify Juwan Gu RN. Performed By: #### C BC ####[address] Hematocrit (Bld) [Volume fraction] 39.5 % Normal 34.0-46.4 [facility] Comment on above: Order Comment: Speci men clotted. Redraw requested. Notified Shannen HENAO. Will notify Juwan Gu RN. Performed By: #### C BC ####[address] Hemoglobin (Bld) [Mass/Vol] 13.0 g/dL Normal 11.8-15.4 [facility] Comment on above: Order Comment: Speci men clotted. Redraw requested. Notified Shannen HENAO. Will notify Juwan Gu RN. Performed By: #### C BC ####[address] Lymphocytes (Bld) [#/Vol] 0.8 10*3/uL Low 1.00-4.8 [facility] Comment on above: Order Comment: Speci men clotted. Redraw requested. Notified Shannen HENAO. Will notify Juwan Gu RN. Performed By: #### C BC ####[address] Lymphocytes/100 WBC (Bld) 7.0 % Normal . [facility] Comment on above: Order Comment: Speci men clotted. Redraw requested. Notified Shannen HENAO. Will notify Juwan Gu RN. Performed By: #### C BC ####[address] MCH (RBC) [Entitic mass] 31.3 pg Normal 24.7-34.3 [facility] Comment on above: Order Comment: Speci men clotted. Redraw requested. Notified Shannen HENAO. Will notify Juwan Gu RN. Performed By: #### C BC ####[address] MCV (RBC) [Entitic vol] 95.4 fL Normal 80-100 [facility] Comment on above: Order Comment: Speci men clotted. Redraw requested. Notified Shannen HENAO. Will notify Juwan Gu RN. Performed By: #### C BC ####[address] Mean Corpuscular HGB Conc 32.9 g/dL Normal 32.0-35.0 [facility] Comment on above: Order Comment: Speci men clotted. Redraw requested. Notified Shannen HENAO. Will notify Juwan Gu RN. Performed By: #### C BC ####[place] [address] [place] Monocytes (Bld) [#/Vol] 0.9 10*3/uL High 0.0-0.8 [facility] Comment on above: Order Comment: Speci men clotted. Redraw requested. Notified Shannen HENAO. Will notify Juwan Gu RN. Performed By: #### C BC ####[address] Monocytes/100 WBC (Bld) 7.7 % Normal . [facility] Comment on above: Order Comment: Speci men clotted. Redraw requested. Notified Shannen HENAO. Will notify Juwan Gu RN. Performed By: #### C BC ####[place] [address] [place] Neutrophils (Bld) [#/Vol] 9.5 10*3/uL High 1.8-7.7 [facility] Comment on above: Order Comment: Speci men clotted. Redraw requested. Notified Shannen HENAO. Will notify Juwan Gu RN. Performed By: #### C BC ####[address] Neutrophils/100 WBC (Bld) 84.9 % Normal . [facility] Comment on above: Order Comment: Speci men clotted. Redraw requested. Notified Shannen HENAO. Will notify Juwan Gu RN. Performed By: #### C BC ####[place] [address] [place] Nucleated RBC/100 WBC (Bld) [Ratio] 0.0 % Normal 0-0.5 [facility] Comment on above: Order Comment: Speci men clotted. Redraw requested. Notified Shannen TRIPLETT Will notify Juwan Gu RN. Performed By: #### C BC ####[place] [id number] [facility] Platelet mean volume (Bld) [Entitic vol] 8.2 fL Normal 6.3-10.7 [facility] Comment on above: Order Comment: Speci men clotted. Redraw requested. Notified Shannen HENAO. Will notify Juwan Gu RN. Performed By: #### C BC ####[place] [id number] [facility] Platelets (Bld) [#/Vol] 193 10*3/uL Normal 150-450 [facility] Comment on above: Order Comment: Speci men clotted. Redraw requested. Notified Shannen HENAO. Will notify Juwan Gu RN. Performed By: #### C BC ####[address] RBC (Bld) [#/Vol] 4.14 10*6/uL Normal 3.60-5.00 [facility] Comment on above: Order Comment: Speci men clotted. Redraw requested. Notified Shannen HENAO. Will notify Juwan Gu RN. Performed By: #### C BC ####[address] WBC (Bld) [#/Vol] 11.2 10*3/uL High 4.5-11.0 [facility] Comment on above: Order Comment: Speci men clotted. Redraw requested. Notified Shannen HENAO. Will notify Juwan Gu RN. Performed By: #### C BC ####[place] [id number] [facility] Magnesiumon 08-02-2021 Magnesium [Mass/Vol] 1.8 mg/dL Normal 1.6-2.6 [facility] Comment on above: Result Comment: PERF ORMED BY: [facility] [address] [id number] PATHOLOGIST [employer] ROBYN CASAS M.D. Performed By: #### M [place] [facility] ####[facility] [address] [place] [id number] [facility] XR KUBon 08-02-2021 XR KUB [facility] Main [place] [address] [place] [id number] XRay Report Signed Patient: Areli Hawkins MR#: [id number] : 1945 Acct:[id number] Age/Sex: 75 / F ADM Date: 08/01/21 Loc: Room: [address] [place] [address] Type: ADM IN Attending Dr: Indio Pgua MD Ordering Provider: Indio Puga MD Date [...] Allan Salinas M.D.08/02/2021 8:28 AM Dictation Location: [place] [address] Transcribed By: [facility] 08/02/21827 Dictated By: Allan Salinas DO 08/02/21809 Signed By: 08/02/21827 [facility] COVID-19 Antigenon 1 COVID-19 [facility] Healthcare [...] its performance Heaven Disclaimer characteristic determined by [employer] and Heaven Disclaimer validated at [facility]. This Heaven Disclaimer test has not [...] Emergency Use Authorization for Coronavirus Heaven Disclaimer iseas during the Public Health Emergency) Heaven Disclaimer [...] is terminated or revoked sooner. PERFORMED BY: [facility] [address] [place] [id number] PATHOLOGIST [employer] ROBYN CASAS M.D. Normal [facility] Comment on above: Performed By: #### S OFIANEG, COVID-19 HEAVEN #### [facility] [address] [place] [id number] [facility] SARS-CoV-2 (COVID-19) RNA CHETAN+probe Ql (Unsp spec) Negative Normal Negative [facility] Comment on above: Order Comment: Healt hcare Worker?: N Result Comment: Testing for SARS-CoV-2 by RT-PCR This test was developed and its performance characteristics determined by [employer] and validated at the [facility]. This test has not been FDA [...] is terminated or revoked sooner. PERFORMED BY: [facility] [address] [place] [id number] PATHOLOGIST [employer] ROBYN CASAS M.D. Performed By: #### C OVID 19 [facility] ####[facility] [place] [address] [facility] CT abdomen pelvis wo conon 1 10-01-2020 CT abdomen pelvis wo con [facility] Main [place] [address] [place] [address] Scan Report Signed Patient: Areli Hawkins MR#: [id number] : 1945 Acct:[id number] Age/Sex: 75 / F ADM Date: 08/01/21 Loc: Room: [address] [place] [address] Type: ADM IN Attending Dr: Indio Puga [...] Allan Salinas M.D.08/01/2021 9:44 AM Dictation Location: [place] [address] Transcribed By: JORGE 08/01/21943 Dictated By: Allan Salinas DO 08/01/21937 Signed By: 08/01/21943 Normal [facility] Complete Blood Count Auto Di ffon 08-01-2021 Basophils (Bld) [#/Vol] 0.0 10*3/uL Normal 0.0-0.2 [facility] Comment on above: Result Comment: PERF ORMED BY: [place] [address] PATHOLOGIST [employer] ROBYN CASAS M.D. Performed By: #### C BC, LIPASE, LACTIC, CMP #### [facility] [address] [place] [address] Basophils/100 WBC (Bld) 0.4 % Normal . [facility] Comment on above: Performed By: #### C BC, LIPASE, LACTIC, CMP #### [facility] [address] Eosinophils (Bld) [#/Vol] 0.1 10*3/uL Normal 0.0-0.45 [facility] Comment on above: Performed By: #### C BC, LIPASE, LACTIC, CMP #### [facility] [address] Eosinophils/100 WBC (Bld) 0.8 % Normal . [facility] Comment on above: Performed By: #### C BC, LIPASE, LACTIC, CMP #### [facility] [address] Erythrocyte distribution width (RBC) [Ratio] 14.0 % Normal 11.9-15.3 [facility] Comment on above: Performed By: #### C BC, LIPASE, LACTIC, CMP #### [facility] [address] Hematocrit (Bld) [Volume fraction] 39.8 % Normal 34.0-46.4 [facility] Comment on above: Performed By: #### C BC, LIPASE, LACTIC, CMP #### [address] Hemoglobin (Bld) [Mass/Vol] 13.3 g/dL Normal 11.8-15.4 [facility] Comment on above: Performed By: #### C BC, LIPASE, LACTIC, CMP #### [address] Lymphocytes (Bld) [#/Vol] 1.0 10*3/uL Normal 1.00-4.8 [facility] Comment on above: Performed By: #### C BC, LIPASE, LACTIC, CMP #### [address] Lymphocytes/100 WBC (Bld) 10.9 % Normal . [facility] Comment on above: Performed By: #### C BC, LIPASE, LACTIC, CMP #### [address] MCH (RBC) [Entitic mass] 31.3 pg Normal 24.7-34.3 [facility] Comment on above: Performed By: #### C BC, LIPASE, LACTIC, CMP #### [address] MCV (RBC) [Entitic vol] 93.7 fL Normal 80-100 [facility] Comment on above: Performed By: #### C BC, LIPASE, LACTIC, CMP #### [address] Mean Corpuscular HGB Conc 33.4 g/dL Normal 32.0-35.0 [facility] Comment on above: Performed By: #### C BC, LIPASE, LACTIC, CMP #### [address] Monocytes (Bld) [#/Vol] 0.9 10*3/uL High 0.0-0.8 [facility] Comment on above: Performed By: #### C BC, LIPASE, LACTIC, CMP #### [address] [place] [address] [place] Monocytes/100 WBC (Bld) 9.5 % Normal . [facility] Comment on above: Performed By: #### C BC, LIPASE, LACTIC, CMP #### [facility] [address] Neutrophils (Bld) [#/Vol] 7.4 10*3/uL Normal 1.8-7.7 [facility] Comment on above: Performed By: #### C BC, LIPASE, LACTIC, CMP #### [facility] [address] Neutrophils/100 WBC (Bld) 78.4 % Normal . [facility] Comment on above: Performed By: #### C BC, LIPASE, LACTIC, CMP #### [address] Nucleated RBC/100 WBC (Bld) [Ratio] 0.1 % Normal 0-0.5 [facility] Comment on above: Performed By: #### C BC, LIPASE, LACTIC, CMP #### [address] Platelet mean volume (Bld) [Entitic vol] 8.5 fL Normal 6.3-10.7 [facility] Comment on above: Performed By: #### C BC, LIPASE, LACTIC, CMP #### [place] [address] [place] Platelets (Bld) [#/Vol] 194 10*3/uL Normal 150-450 [facility] Comment on above: Performed By: #### C BC, LIPASE, LACTIC, CMP #### [place] [address] [place] RBC (Bld) [#/Vol] 4.25 10*6/uL Normal 3.60-5.00 [facility] Comment on above: Performed By: #### C BC, LIPASE, LACTIC, CMP #### [place] [address] [place] WBC (Bld) [#/Vol] 9.5 10*3/uL Normal 4.5-11.0 [facility] Comment on above: Performed By: #### C BC, LIPASE, LACTIC, CMP #### [facility] [address] Comprehensive Metabolic Pane lizy 08-01-2021 Albumin [Mass/Vol] 3.5 g/dL Normal 3.2-5.5 [facility] Comment on above: Performed By: #### C BC, LIPASE, LACTIC, CMP #### [facility] [address] Albumin/Globulin [Mass ratio] 1.3 {ratio} Normal [facility] Comment on above: Performed By: #### C BC, LIPASE, LACTIC, CMP #### [address] ALP [Catalytic activity/Vol] 54 U/L Normal 32-92 [facility] Comment on above: Performed By: #### C BC, LIPASE, LACTIC, CMP #### [address] ALT [Catalytic activity/Vol] 16 U/L Normal 10-60 [facility] Comment on above: Performed By: #### C BC, LIPASE, LACTIC, CMP #### [address] AST [Catalytic activity/Vol] 30 U/L Normal 10-42 [facility] Comment on above: Performed By: #### C BC, LIPASE, LACTIC, CMP #### [facility] [address] [place] [address] Bilirubin [Mass/Vol] 0.7 mg/dL Normal 0.3-1.2 [facility] Comment on above: Performed By: #### C BC, LIPASE, LACTIC, CMP #### [facility] [address] [place] [address] Calcium [Mass/Vol] 9.1 mg/dL Normal 8.2-10.2 [facility] Comment on above: Performed By: #### C BC, LIPASE, LACTIC, CMP #### [facility] [address] [place] [address] Chloride [Moles/Vol] 106 mmol/L Normal 95-114 [facility] Comment on above: Performed By: #### C BC, LIPASE, LACTIC, CMP #### [facility] [address] CO2 [Moles/Vol] 21.0 mmol/L Low 22.0-30.0 [facility] Comment on above: Performed By: #### C BC, LIPASE, LACTIC, CMP #### [facility] [address] Creatinine [Mass/Vol] 0.77 mg/dL Normal 0.44-1.03 [facility] Comment on above: Performed By: #### C BC, LIPASE, LACTIC, CMP #### [address] Creatinine Clr Calc Pharmacy 71.76 [facility] Comment on above: Performed By: #### C BC, LIPASE, LACTIC, CMP #### [address] Estimated GFR ( Joey > 60 [facility] Comment on above: Result Comment: GFR estimated reference range: According to KDOQI guidelines, <60 ml/min/1.73m2 is sufficient to diagnose a patient with chronic kidney disease. Performed By: #### C BC, LIPASE, LACTIC, CMP #### [address] Estimated GFR (Non- Am > 60 [facility] Comment on above: Performed By: #### C BC, LIPASE, LACTIC, CMP #### [address] Globulin (S) [Mass/Vol] 2.6 g/dL [facility] Comment on above: Performed By: #### C BC, LIPASE, LACTIC, CMP #### [address] Glucose [Mass/Vol] 106 mg/dL High 70-100 [facility] Comment on above: Result Comment: Nettie Glucose Reference Range is dependent on time and content of last meal. Glucose of more than 200 mg/dL in a nonstressed, ambulatory subject supports the diagnosis of Diabetes Mellitus. ADA recommended reference range Performed By: #### C BC, LIPASE, LACTIC, CMP #### [facility] [address] Potassium [Moles/Vol] 3.2 mmol/L Low 3.5-5.1 [facility] Comment on above: Performed By: #### C BC, LIPASE, LACTIC, CMP #### [facility] [address] Protein [Mass/Vol] 6.1 g/dL Normal 6.1-7.9 [facility] Comment on above: Performed By: #### C BC, LIPASE, LACTIC, CMP #### [address] Sodium [Moles/Vol] 139 mmol/L Normal 136-146 [facility] Comment on above: Performed By: #### C BC, LIPASE, LACTIC, CMP #### [address] Urea nitrogen [Mass/Vol] 7 mg/dL Low 9-23 [facility] Comment on above: Performed By: #### C BC, LIPASE, LACTIC, CMP #### [address] Consultation Noteon 08-01-20 Consultation Note [id number] D:127 Normal [facility] ECG 12 lead ECGon 08-01-2021 ECG 12 lead ECG [facility] [place] [address] Electrocardiograph Report Signed Patient: Areli Hawkins MR#: [id number] : 1945 Acct:[id number] Age/Sex: 75 / F ADM Date: 08/01/21 Loc: ER Room: Type: [facility] ER Attending Dr: Ordering Provider: Matt Martinez [...] ECGs available Confirmed by MATT MARTINEZ MD ([id number]) on 08/01/2021 5:35:09 AM Referred By: Electronically Signed By:MATT MARTINEZ MD Transcribed By: MUS Signed By Matt Martinez Jr, MD [id number] Normal [facility] Lactic Acidon 08-01-2021 Lactate [Moles/Vol] 1.5 mmol/L Normal 0.5-2.2 [facility] Comment on above: Result Comment: PERF ORMED BY: [place] [address] PATHOLOGIST [employer] ROBYN CASAS M.D. Performed By: #### C BC, LIPASE, LACTIC, CMP #### [address] Lipaseon 08-01-2021 Lipase [Catalytic activity/Vol] 28.0 U/L Normal 22-51 [facility] Comment on above: Result Comment: PERF ORMED BY: [place] [address] PATHOLOGIST [employer] ROBYN CASAS M.D. Performed By: #### C BC, LIPASE, LACTIC, CMP #### [facility] [address] [place] [address] RAD - MISCon 08-01-2021 RAD - MISC [id number] [facility] [id number] D:127 Normal [facility] Heaven Ag Negativeon 08-01-20 Heaven Ag Negative Negative Normal Negative [facility] Comment on above: Result Comment: This is a duplicate Heaven SARS Antigen (ALEKS) result to be used for statistical tracking purpose only. PERFORMED BY: [place] [id number] PATHOLOGIST [employer] ROBYN CASAS M.D. Performed By: #### S OFIANEG, COVID-19 HEAVEN #### [facility] [address] [place] [address] [place] Urinalysison 08-01-2021 Appearance (U) Clear Normal Clear [facility] Comment on above: Order Comment: Name Collection Type:: Clean-Voided Midstream Performed By: #### U A #### [facility] [address] [place] [address] [place] Bilirubin,Urine Negative Normal Negative [facility] Comment on above: Order Comment: Name Collection Type:: Clean-Voided Midstream Performed By: #### U A #### [place] [address] [place] Color (U) Yellow Normal Yellow [facility] Comment on above: Order Comment: Name Collection Type:: Clean-Voided Midstream Performed By: #### U A #### [place] [address] [place] Glucose Ql (U) Normal Normal Normal [facility] Comment on above: Order Comment: Name Collection Type:: Clean-Voided Midstream Performed By: #### U A #### [facility] [address] [place] [address] [place] Ketones Ql (U) Negative Normal Negative [facility] Comment on above: Order Comment: Name Collection Type:: Clean-Voided Midstream Performed By: #### U A #### [facility] [address] [place] [address] [place] Leukocyte esterase Test strip Ql (U) Negative Normal Negative [facility] Comment on above: Order Comment: Name Collection Type:: Clean-Voided Midstream Performed By: #### U A #### [facility] [address] [place] [address] [place] Nitrite,Urine Negative Normal Negative [facility] Comment on above: Order Comment: Name Collection Type:: Clean-Voided Midstream Performed By: #### U A #### [facility] [address] [place] [address] [place] Occult Blood,Urine Negative Normal Negative [facility] Comment on above: Order Comment: Name Collection Type:: Clean-Voided Midstream Result Comment: PERF ORMED BY: [place] [address] PATHOLOGIST [employer] ROBYN CASAS M.D. Performed By: #### U A #### [facility] [address] [place] [address] pH (U) 5.5 [pH] Normal 5.0-9.0 [facility] Comment on above: Order Comment: Name Collection Type:: Clean-Voided Midstream Performed By: #### U A #### [facility] [address] [place] [address] Protein,Urine Negative Normal Negative [facility] Comment on above: Order Comment: Name Collection Type:: Clean-Voided Midstream Performed By: #### U A #### [address] Specificy [place],Urine 1.011 Normal 1.001-1.030 [facility] Comment on above: Order Comment: Name Collection Type:: Clean-Voided Midstream Performed By: #### U A #### [facility] [address] [place] [address] Urobilinogen,Urine Normal Normal Normal [facility] Comment on above: Order Comment: Name Collection Type:: Clean-Voided Midstream Performed By: #### U A #### [facility] [address] [place] [address] XR abdomen 1Von 08-01-2021 XR abdomen 1V [facility] [place] [address] XRay Report Signed Patient: Areli Hawkins MR#: [id number] : 1945 Acct:[id number] Age/Sex: 75 / F ADM Date: 08/01/21 Loc: Room: 8P6303-2 Type: ADM IN Attending Dr: Indio Puga [...] Harsh Pickett M.D.08/01/2021 8:52 AM Dictation Location: [place] [address] Transcribed By: [facility] 08/01/21851 Dictated By: Harsh Pickett MD 08/01/21849 Signed By: 08/01/21851 [facility] CBC AUTO DIFFon 07-31-2021 BASO # 0.0 103/ul Normal 0.0-0.1 [facility] Comment on above: Performed By: #### C BC #### [facility] [address] [place] [address] Dr. Millie Flores Basophils/100 WBC (Bld) 0.4 % Normal 0.2-2.0 [facility] Comment on above: Performed By: #### C BC #### [facility] [address] [place] [address] Dr. Millie Flores EO # 0.2 103/ul Normal 0.0-0.7 [facility] Comment on above: Performed By: #### C BC #### [facility] [address] [place] [address] Dr. Millie Flores Eosinophils/100 WBC (Bld) 2.2 % Normal 0.9-7.0 [facility] Comment on above: Performed By: #### C BC #### [facility] [address] [place] [address] Dr. Millie Floers Erythrocyte distribution width (RBC) [Ratio] 13.9 % Normal 11.0-15.0 [facility] Comment on above: Performed By: #### C BC #### [facility] [address] [place] [address] Dr. Millie Flores Hematocrit (Bld) [Volume fraction] 35.7 % Critically low 36.0-48.0 [facility] Comment on above: Performed By: #### C BC #### [facility] [address] [place] [address] [address] Millie Flores Hemoglobin (Bld) [Mass/Vol] 11.2 g/dL Critically low 12.0-16.0 [facility] Comment on above: Performed By: #### C BC #### [facility] [address] [place] [address] [address] Millie Flores IG # 0.04 10e3/ul Critically high 0.00-0.03 [facility] Comment on above: Performed By: #### C BC #### [facility] [address] [place] [address] Dr. Millie Flores IG % 0.5 % Normal 0.0-0.5 [facility] Comment on above: Performed By: #### C BC #### [facility] [address] [place] [address] [address] Millie Flores LYMPH # 2.3 103/ul Normal 1.2-3.8 [facility] Comment on above: Performed By: #### C BC #### [facility] [address] [place] [address] Dr. Millie Flores Lymphocytes/100 WBC (Bld) 31.7 % Normal 20.5-60.0 [facility] Comment on above: Performed By: #### C BC #### [facility] [address] [place] [address] Dr. Millie Flores MANUAL DIFF REQ NO Normal [facility] Comment on above: Performed By: #### C BC #### [facility] [address] [place] [address] [address] Millie Flores MCH (RBC) [Entitic mass] 31.0 pg Normal 26.7-34.0 [facility] Comment on above: Performed By: #### C BC #### [facility] [address] [place] [address] Dr. Millie Flores MCHC (RBC) [Mass/Vol] 31.4 g/dL Normal 29.9-35.2 [facility] Comment on above: Performed By: #### C BC #### [facility] [address] [place] [address] Dr. Millie Flores MCV (RBC) [Entitic vol] 98.9 fL Normal 81.0-99.0 [facility] Comment on above: Performed By: #### C BC #### [facility] [address] [place] [address] Dr. Millie Flores MONO # 0.9 103/ul Critically high 0.3-0.8 [facility] Comment on above: Performed By: #### C BC #### [facility] [address] [place] [address] Dr. Millie Flores Monocytes/100 WBC (Bld) 12.5 % Critically high 1.7-12.0 [facility] Comment on above: Performed By: #### C BC #### [facility] [address] [place] [address] Dr. Millie Flores NEUT # 3.8 103/ul Normal 1.4-6.5 [facility] Comment on above: Performed By: #### C BC #### [facility] [address] [place] [address] Dr. Millie Flores Neutrophils/100 WBC (Bld) 52.7 % Normal 43.0-75.0 [facility] Comment on above: Performed By: #### C BC #### [facility] [address] [place] [address] Dr. Millie Flores Platelet mean volume (Bld) [Entitic vol] 10.2 fL Normal 9.5-13.5 [facility] Comment on above: Performed By: #### C BC #### [facility] [address] [place] [address] Dr. Millie Flores PLT 165 103/ul Normal 150-450 [facility] Comment on above: Performed By: #### C BC #### [facility] [address] [place] [address] Dr. Millie Flores RBC 3.61 106/ul Critically low 4.20-5.40 [facility] Comment on above: Performed By: #### C BC #### [facility] [address] [place] [address] Dr. Millie Flores WBC 7.3 103/ul Normal 4.0-11.0 [facility] Comment on above: Performed By: #### C BC #### [facility] [address] [place] [address] Dr. Millie Flores CULTURE URINEon 07-31-2021 CULTURE [...] F Trimethoprim/Sulfametho xazole <=20 S F Normal [facility] Comment on above: Performed By: #### B MP #### [facility] [address] [place] [address] Dr. Millie Flores PROF CHEM 8 (BAS METB)on Anion gap [Moles/Vol] 11.5 mmol/L Normal [facility] Comment on above: Performed By: #### B MP #### [facility] [address] [place] [address] Dr. Millie Flores Calcium [Mass/Vol] 8.2 mg/dL Critically low 8.4-10.2 [facility] Comment on above: Performed By: #### B MP #### [facility] [address] [place] [address] Dr. Millie Flores Chloride [Moles/Vol] 109 mmol/L Critically high 98-107 [facility] Comment on above: Performed By: #### B MP #### [facility] [address] [place] [address] Dr. Millie Flores CO2 [Moles/Vol] 26.4 mmol/L Normal 22.0-30.0 [facility] Comment on above: Performed By: #### B MP #### [facility] [address] [place] [address] Dr. Millie Flores Creatinine [Mass/Vol] 0.69 mg/dL Normal 0.52-1.04 [facility] Comment on above: Performed By: #### B MP #### [facility] [address] [address] [address] Millie Flores EGFR-AF MALTESE >60 Normal >=60 [facility] Comment on above: Performed By: #### B MP #### [facility] [address] [address] [address] Millie Flores EGFR-NON AF MALTESE >60 Normal >=60 [facility] Comment on above: Performed By: #### B MP #### [facility] [address] [place] [address] Dr. Millie Flores Glucose [Mass/Vol] 92 mg/dL Normal 74-106 [facility] Comment on above: Performed By: #### B MP #### [facility] [address] [place] [address] Dr. Millie Flores Potassium [Moles/Vol] 3.9 mmol/L Normal 3.4-5.0 [facility] Comment on above: Performed By: #### B MP #### [facility] [address] [place] [address] Dr. Millie Flores Sodium [Moles/Vol] 143 mmol/L Normal 137-145 [facility] Comment on above: Performed By: #### B MP #### [facility] [address] [address] [address] Millie Flores Urea nitrogen [Mass/Vol] 8.0 mg/dL Normal 7.0-17.0 [facility] Comment on above: Performed By: #### B MP #### [facility] [address] [address] [address] Millie Flores Urea nitrogen/Creatinine [Mass ratio] 11.6 mg/mg Normal [facility] Comment on above: Performed By: #### B MP #### [facility] [address] [place] [address] Dr. Millie Flores CBC AUTO DIFFon 07-30-2021 BASO # 0.1 103/ul Normal 0.0-0.1 [facility] Comment on above: Performed By: #### C BC #### [facility] [address] [place] [address] Dr. Millie Flores Basophils/100 WBC (Bld) 0.4 % Normal 0.2-2.0 [facility] Comment on above: Performed By: #### C BC #### [facility] [address] [place] [address] Dr. Millie Flores EO # 0.0 103/ul Normal 0.0-0.7 [facility] Comment on above: Performed By: #### C BC #### [facility] [address] [place] [address] Dr. Millie Flores Eosinophils/100 WBC (Bld) 0.3 % Critically low 0.9-7.0 [facility] Comment on above: Performed By: #### C BC #### [facility] [address] [place] [address] Dr. Millie Flores Erythrocyte distribution width (RBC) [Ratio] 13.5 % Normal 11.0-15.0 [facility] Comment on above: Performed By: #### C BC #### [facility] [address] [place] [address] Dr. Millie Flores Hematocrit (Bld) [Volume fraction] 41.5 % Normal 36.0-48.0 [facility] Comment on above: Performed By: #### C BC #### [facility] [address] [place] [address] Dr. Millie Flores Hemoglobin (Bld) [Mass/Vol] 13.7 g/dL Normal 12.0-16.0 [facility] Comment on above: Performed By: #### C BC #### [facility] [address] [place] [address] Dr. Millie Flores IG # 0.05 10e3/ul Critically high 0.00-0.03 [facility] Comment on above: Performed By: #### C BC #### [facility] [address] [place] [address] Dr. Millie Flores IG % 0.4 % Normal 0.0-0.5 [facility] Comment on above: Performed By: #### C BC #### [facility] [address] [place] [address] Dr. Millie Flores LYMPH # 1.8 103/ul Normal 1.2-3.8 [facility] Comment on above: Performed By: #### C BC #### [facility] [address] [place] [address] Dr. Millie Flores Lymphocytes/100 WBC (Bld) 14.7 % Critically low 20.5-60.0 [facility] Comment on above: Performed By: #### C BC #### [facility] [address] [place] [address] Dr. Millie Flores MANUAL DIFF REQ NO Normal [facility] Comment on above: Performed By: #### C BC #### [facility] [address] [place] [address] Dr. Millie Flores MCH (RBC) [Entitic mass] 31.5 pg Normal 26.7-34.0 [facility] Comment on above: Performed By: #### C BC #### [facility] [address] [place] [address] Dr. Millie Flores MCHC (RBC) [Mass/Vol] 33.0 g/dL Normal 29.9-35.2 [facility] Comment on above: Performed By: #### C BC #### [facility] [address] [place] [address] Dr. Millie Flores MCV (RBC) [Entitic vol] 95.4 fL Normal 81.0-99.0 [facility] Comment on above: Performed By: #### C BC #### [facility] [address] [place] [address] Dr. Millie Flores MONO # 1.5 103/ul Critically high 0.3-0.8 [facility] Comment on above: Performed By: #### C BC #### [facility] [address] [address] [address] Millie Flores Monocytes/100 WBC (Bld) 12.7 % Critically high 1.7-12.0 [facility] Comment on above: Performed By: #### C BC #### [facility] [address] [address] [address] Millie Flores NEUT # 8.7 103/ul Critically high 1.4-6.5 [facility] Comment on above: Performed By: #### C BC #### [facility] [address] [address] [address] Millie Flores Neutrophils/100 WBC (Bld) 71.5 % Normal 43.0-75.0 [facility] Comment on above: Performed By: #### C BC #### [facility] [address] [place] [address] Dr. Millie Flores Platelet mean volume (Bld) [Entitic vol] 10.2 fL Normal 9.5-13.5 [facility] Comment on above: Performed By: #### C BC #### [facility] [address] [place] [address] Dr. Millie Flores PLT 218 103/ul Normal 150-450 [facility] Comment on above: Performed By: #### C BC #### [facility] [address] [place] [address] Dr. Millie Flores RBC 4.35 106/ul Normal 4.20-5.40 [facility] Comment on above: Performed By: #### C BC #### [facility] [address] [place] [address] Dr. Millie Flores WBC 12.1 103/ul Critically high 4.0-11.0 [facility] Comment on above: Performed By: #### C BC #### [facility] [address] [place] [address] Dr. Millie Flores PROF CHEM 8 (BAS METB)on Anion gap [Moles/Vol] 13.9 mmol/L Normal [facility] Comment on above: Performed By: #### C BC #### [facility] [address] [address] [address] Millie Flores Calcium [Mass/Vol] 8.8 mg/dL Normal 8.4-10.2 [facility] Comment on above: Performed By: #### C BC #### [facility] [address] [address] [address] Millie Flores Chloride [Moles/Vol] 105 mmol/L Normal 98-107 [facility] Comment on above: Performed By: #### C BC #### [facility] [address] [address] [address] Millie Flores CO2 [Moles/Vol] 25.7 mmol/L Normal 22.0-30.0 [facility] Comment on above: Performed By: #### C BC #### [facility] [address] [address] [address] Millie Flores Creatinine [Mass/Vol] 0.73 mg/dL Normal 0.52-1.04 [facility] Comment on above: Performed By: #### C BC #### [facility] [address] [address] [address] Millie Flores EGFR-AF MALTESE >60 Normal >=60 [facility] Comment on above: Performed By: #### C BC #### [facility] [address] [address] [address] Millie Flores EGFR-NON AF MALTESE >60 Normal >=60 [facility] Comment on above: Performed By: #### C BC #### [facility] [address] [address] [address] Millie Flores Glucose [Mass/Vol] 120 mg/dL Critically high 74-106 [facility] Comment on above: Performed By: #### C BC #### [facility] [address] [address] [address] Millie Flores Potassium [Moles/Vol] 3.6 mmol/L Normal 3.4-5.0 [facility] Comment on above: Performed By: #### C BC #### [facility] [address] [address] [address] Millie Flores Sodium [Moles/Vol] 141 mmol/L Normal 137-145 [facility] Comment on above: Performed By: #### C BC #### [facility] [address] [address] [address] Millie Flores Urea nitrogen [Mass/Vol] 13.0 mg/dL Normal 7.0-17.0 [facility] Comment on above: Performed By: #### C BC #### [facility] [address] [address] [address] Millie Flores Urea nitrogen/Creatinine [Mass ratio] 17.8 mg/mg Normal [facility] Comment on above: Performed By: #### C BC #### [facility] [address] [address] [address] Millie Flores XR ABD FLAT UP_PA [...] GEOVANI SELBY Date: 2021-07-30 09:44 Normal [facility] AMYLASEon 07-29-2021 Amylase [Catalytic activity/Vol] 105 U/L Normal 31-110 [facility] Comment on above: Performed By: #### C BC #### [facility] [address] [address] [address] Millie Flores CBC W MANUAL DIFFon 07-29-20 21 ATYPICAL LYMPH # Normal [facility] Comment on above: Performed By: #### C BCMAN #### [facility] [address] [address] [address] Millie Flores ATYPICAL LYMPH % Normal [facility] Comment on above: Performed By: #### C BCMAN #### [facility] [address] [place] [address] Dr. Millie Flores BAND # Normal 0.0-0.3 [facility] Comment on above: Performed By: #### C BCMEGAN #### [facility] [address] [place] [address] Dr. Millie Flores BAND % Normal 0-5 [facility] Comment on above: Performed By: #### C GEOFFREY #### [facility] [address] [place] [address] Dr. Millie Flores BASOM # 0.00 103/ul Normal 0.00-0.10 [facility] Comment on above: Performed By: #### C GEOFFREY #### [facility] [address] [place] [address] Dr. Millie Flores BASOM % 0.0 % Critically low 0.2-2.0 [facility] Comment on above: Performed By: #### C GEOFFREY #### [facility] [address] [place] [address] Dr. Millie Flores BLAST # Normal [facility] Comment on above: Performed By: #### C GEOFFREY #### [facility] [address] [place] [address] Dr. Millie Flores BLAST % Normal [facility] Comment on above: Performed By: #### C GEOFFREY #### [facility] [address] [place] [address] Dr. Millie Flores CORRECTED WBC Normal 4.0-11.0 [facility] Comment on above: Performed By: #### C GEOFFREY #### [facility] [address] [place] [address] Dr. Millie Flores EOS # 0.00 103/ul Normal 0.00-0.70 [facility] Comment on above: Performed By: #### C GEOFFREY #### [facility] [address] [place] [address] Dr. Millie Flores EOS% 0.0 % Critically low 0.9-7.0 [facility] Comment on above: Performed By: #### C GEOFFREY #### [facility] [address] [place] [address] Dr. Millie Flores HCT 44.2 % Normal 36.0-48.0 [facility] Comment on above: Performed By: #### C GEOFFREY #### [facility] [address] [place] [address] Dr. Millie Flores HGB 14.6 g/dl Normal 12.0-16.0 [facility] Comment on above: Performed By: #### C GEOFFREY #### [facility] [address] [place] [address] Dr. Millie Flores LYMPHM # 1.93 103/ul Normal 1.20-3.80 [facility] Comment on above: Performed By: #### C GEOFFREY #### [facility] [address] [place] [address] Dr. Millie Flores LYMPHM% 11.0 % Critically low 20.5-60.0 [facility] Comment on above: Performed By: #### C GEOFFREY #### [facility] [address] [place] [address] Dr. Millie Flores MCH 31.2 pg Normal 26.7-34.0 [facility] Comment on above: Performed By: #### C GEOFFREY #### [facility] [address] [place] [address] Dr. Millie Flores MCHC 33.0 g/dl Normal 29.9-35.2 [facility] Comment on above: Performed By: #### C GEOFFREY #### [facility] [address] [place] [address] Dr. Millie Flores MCV 94.4 fL Normal 81.0-99.0 [facility] Comment on above: Performed By: #### C GEOFFREY #### [facility] [address] [place] [address] Dr. Millie Flores METAMYELOCYTE # Normal [facility] Comment on above: Performed By: #### C GEOFFREY #### [facility] [address] [place] [address] Dr. Millie Flores METAMYELOCYTE % Normal [facility] Comment on above: Performed By: #### C GEOFFREY #### [facility] [address] [place] [address] Dr. Millie Flores MONOM# 1.57 103/ul Critically high 0.30-0.80 [facility] Comment on above: Performed By: #### C GEOFFREY #### [facility] [address] [place] [address] Dr. Millie Flores MONOM% 9.0 % Normal 1.7-12.0 [facility] Comment on above: Performed By: #### C GEOFFREY #### [facility] [address] [place] [address] Dr. Millie Flores MPV 9.9 fL Normal 9.5-13.5 [facility] Comment on above: Performed By: #### C GEOFFREY #### [facility] [address] [place] [address] Dr. Millie Flores MYELOCYTE # Normal [facility] Comment on above: Performed By: #### C GEOFFREY #### [facility] [address] [place] [address] Dr. Millie Flores MYELOCYTE % Normal [facility] Comment on above: Performed By: #### C GEOFFREY #### [facility] [address] [place] [address] Dr. Millie Flores NRBC Normal [facility] Comment on above: Performed By: #### C GEOFFREY #### [facility] [address] [place] [address] Dr. Millie Flores PLT 258 103/ul Normal 150-450 [facility] Comment on above: Performed By: #### C GEOFFREY #### [facility] [address] [place] [address] Dr. Millie Flores RBC 4.68 106/ul Normal 4.20-5.40 [facility] Comment on above: Performed By: #### C GEOFFREY #### [facility] [address] [place] [address] Dr. Millie Flores RDW 13.5 % Normal 11.0-15.0 [facility] Comment on above: Performed By: #### C GEOFFREY #### [facility] [address], [place] [address] Dr. Millie Flores SEG # 14.00 103/ul Critically high 1.40-6.50 [facility] Comment on above: Performed By: #### Bharat ROSETTEMEGAN #### [facility] [address] [place], [place] [address] Dr. Millie Flores SEG % 80.0 % Critically high 43.0-75.0 [facility] Comment on above: Performed By: #### C ROSETTEMEGAN #### [facility] [address] [place], [place] [address] Dr. Millie Flores WBC 17.5 103/ul Critically high 4.0-11.0 [facility] Comment on above: Performed By: #### C GEOFFREY #### [facility] [address] [place], [place] [address] ABD/PELVIS WO CONon [...] MORENO JORGENSEN Date: 2021-07-29 18:25 Normal [facility]on SARS-CoV-2 (COVID-19) RNA CHETAN+probe Ql (Unsp spec) Not detected Normal NOT DETECTED [facility] Comment on above: Result Comment: This test is not yet approved or cleared by the [place] FDA. When there are no FDA-approved or cleared tests available, and other criteria are met, FDA can make tests available under an emergency access mechanism called an Emergency Use Authorization (EUA). The EUA for this test is supported by the [employer] of Health and Human Service's (HHS's) declaration [...] consistent with SARS-CoV-2. Performed By: #### C VDTB #### [facility] [address] [address] [address] Millie Flores ER URINE PROFILEon 1 Bilirubin Ql (U) Negative Normal NEGATIVE [facility] Comment on above: Performed By: #### U MICRO, ERUR #### [facility] [address] [address] [address] Millie Flores Clarity (U) CLEAR Normal CLEAR [facility] Comment on above: Performed By: #### U MICRO, ERUR #### [facility] [address] [address] [address] Millie Flores Color (U) YELLOW Normal YELLOW [facility] Comment on above: Performed By: #### U MICRO, ERUR #### [facility] [address] [address] [address] Millie Flores ERUAHD A micrscopic examination will be performed if indicated. Normal [facility] Comment on above: Performed By: #### U MICRO, ERUR #### [facility] [address] [address] [address] Millie Flores Glucose Ql (U) Negative Normal NEGATIVE [facility] Comment on above: Performed By: #### U MICRO, ERUR #### [facility] [address] [place] [address] Dr. Millie Flores Hemoglobin Ql (U) TRACE-INTACT Abnormal NEGATIVE [facility] Comment on above: Performed By: #### U MICRO, ERUR #### [facility] [address] [address] [address] Millie Flores Ketones Ql (U) TRACE Abnormal NEGATIVE [facility] Comment on above: Performed By: #### U MICRO, ERUR #### [facility] [address] [place] [address] Dr. Millie Flores LEUKOCYTES SMALL Abnormal NEGATIVE [facility] Comment on above: Performed By: #### U MICRO, ERUR #### [facility] [address] [address] [address] Millie Flores Nitrite Ql (U) Negative Normal NEGATIVE [facility] Comment on above: Performed By: #### U MICRO, ERUR #### [facility] [address] [address] [address] Millie Flores pH (U) 6.5 [pH] Normal 5-9 [facility] Comment on above: Performed By: #### U MICRO, ERUR #### [facility] [address] [address] [address] Millie Flores SPEC GRAVITY 1.020 Normal 1.005-<=1.02 5 [facility] Comment on above: Performed By: #### U MICRO, ERUR #### [facility] [address] [place] [address] Dr. Millie Flores UA PROTEIN TRACE Normal NEGATIVE/ TRACE [facility] Comment on above: Performed By: #### U MICRO, ERUR #### [facility] [address] [place] [address] Dr. Millie Flores UR MICRO IND INDICATED Normal [facility] Comment on above: Performed By: #### U MICRO, ERUR #### [facility] [address] [place] [address] Dr. Millie Flores Urobilinogen Qn (U) 1.0 {Robert'U}/dL Normal 0.2 - 1. 0 [facility] Comment on above: Performed By: #### U MICRO, ERUR #### [facility] [address] [place] [address] Dr. Millie Flores LIPASEon 07-29-2021 Lipase [Catalytic activity/Vol] 123.0 U/L Normal 23.0-300.0 [facility] Comment on above: Performed By: #### C BC #### [facility] [address] [place] [address] Dr. Millie Flores PROF 14(COMP METB)on 021 Albumin [Mass/Vol] 3.9 g/dL Normal 3.5-5.0 [facility] Comment on above: Performed By: #### C BC #### [facility] [address] [place] [address] Dr. Millie Flores Albumin/Globulin [Mass ratio] 1.1 {ratio} Normal [facility] Comment on above: Performed By: #### C BC #### [facility] [address] [place] [address] Dr. Millie Flores ALP [Catalytic activity/Vol] 89 U/L Normal 38-126 [facility] Comment on above: Performed By: #### C BC #### [facility] [address] [address] [address] Millie Flores ALT [Catalytic activity/Vol] 17 U/L Normal 9-52 [facility] Comment on above: Performed By: #### C BC #### [facility] [address] [place] [address] Dr. Millie Flores Anion gap [Moles/Vol] 12.3 mmol/L Normal [facility] Comment on above: Performed By: #### C BC #### [facility] [address] [address] [address] Millie Flores AST [Catalytic activity/Vol] 21 U/L Normal 14-36 [facility] Comment on above: Performed By: #### C BC #### [facility] [address] [place] [address] Dr. Millie Flores Bilirubin [Mass/Vol] 0.6 mg/dL Normal 0.2-1.3 [facility] Comment on above: Performed By: #### C BC #### [facility] [address] [place] [address] Dr. Millie Flores Calcium [Mass/Vol] 9.7 mg/dL Normal 8.4-10.2 [facility] Comment on above: Performed By: #### C BC #### [facility] [address] [place] [address] Dr. Millie Flores Chloride [Moles/Vol] 100 mmol/L Normal 98-107 [facility] Comment on above: Performed By: #### C BC #### [facility] [address] [place] [address] Dr. Millie Flores CO2 [Moles/Vol] 26.7 mmol/L Normal 22.0-30.0 [facility] Comment on above: Performed By: #### C BC #### [facility] [address] [place] [address] Dr. Millie Flores Creatinine [Mass/Vol] 0.95 mg/dL Normal 0.52-1.04 [facility] Comment on above: Performed By: #### C BC #### [facility] [address] [place] [address] Dr. Millie Flores EGFR-AF MALTESE >60 Normal >=60 [facility] Comment on above: Performed By: #### C BC #### [facility] [address] [address] [address] Millie Flores EGFR-NON AF MALTESE 58 mL/min/1.73m2 Critically low >=60 [facility] Comment on above: Performed By: #### C BC #### [facility] [address] [address] [address] Millie Flores Globulin (S) [Mass/Vol] 3.7 g/dL Normal [facility] Comment on above: Performed By: #### C BC #### [facility] [address] [address] [address] Millie Flores Glucose [Mass/Vol] 118 mg/dL Critically high 74-106 [facility] Comment on above: Performed By: #### C BC #### [facility] [address] [address] [address] Millie Flores Potassium [Moles/Vol] 3.0 mmol/L Critically low 3.4-5.0 [facility] Comment on above: Performed By: #### C BC #### [facility] [address] [place] [address] Dr. Millie Flores Protein [Mass/Vol] 7.6 g/dL Normal 6.1-8.2 [facility] Comment on above: Performed By: #### C BC #### [facility] [address] [address] [address] Millie Flores Sodium [Moles/Vol] 136 mmol/L Critically low 137-145 [facility] Comment on above: Performed By: #### C BC #### [facility] [facility] [address] [address] [address] Millie Flores Urea nitrogen [Mass/Vol] 14.0 mg/dL Normal 7.0-17.0 [facility] Comment on above: Performed By: #### C BC #### [facility] [address] [address] [address] Millie Flores Urea nitrogen/Creatinine [Mass ratio] 14.7 mg/mg Normal [facility] Comment on above: Performed By: #### C BC #### [facility] [address] [address] [address] Millie Flores URINE MICROSCOPIC ONLYon BACTERIA TRACE Abnormal NONE SEEN [facility] Comment on above: Performed By: #### U MICRO, ERUR #### [facility] [address] [place] [address] Dr. Millie Flores Bacteria identified Cx Nom (U) INDICATED Normal [facility] Comment on above: Performed By: #### U MICRO, ERUR #### [facility] [address] [place] [address] Dr. Millie Flores CAST NONE SEEN Normal NONE SEEN [facility] Comment on above: Performed By: #### U MICRO, ERUR #### [facility] [address] [place] [address] Dr. Millie Flores Crystals LM Nom (Urine sed) NONE SEEN Normal NONE SEEN [facility] Comment on above: Performed By: #### U MICRO, ERUR #### [facility] [address] [place] [address] Dr. Millie Flores Epithelial cells LM Ql (Urine sed) FEW Abnormal NONE SEEN /RARE [facility] Comment on above: Performed By: #### U MICRO, ERUR #### [facility] [address] [place] [address] Dr. Millie Flores MUCOUS SMALL Abnormal NONE SEEN [facility] Comment on above: Performed By: #### U MICRO, ERUR #### [facility] [address] [place] [address] Dr. Millie Flores RBC 0-2 Normal 0-2 [facility] Comment on above: Performed By: #### U MICRO, ERUR #### [facility] [address] [place] [address] Dr. Millie Flores WBC 2-5 Abnormal NONE SEEN [facility] Comment on above: Performed By: #### U MICRO, ERUR #### [facility] [address] [place] [address] Dr. Millie Flores CULTURE URINEon 07-21-2021 CULTURE [...] Trimethoprim/Sulfametho xazole <=20 S F Normal [facility] Comment on above: Performed By: #### B MP #### [facility] [address] [place] [address] Dr. Millie Flores CBC AUTO DIFFon 07-19-2021 BASO # 0.1 103/ul Normal 0.0-0.1 [facility] Comment on above: Performed By: #### C BC #### [facility] [address] [place] [address] Dr. Millie Flores Basophils/100 WBC (Bld) 0.4 % Normal 0.2-2.0 [facility] Comment on above: Performed By: #### C BC #### [facility] [address] [place] [address] Dr. Millie Flores EO # 0.1 103/ul Normal 0.0-0.7 [facility] Comment on above: Performed By: #### C BC #### [facility] [address] [place] [address] Dr. Millie Flores Eosinophils/100 WBC (Bld) 0.9 % Normal 0.9-7.0 [facility] Comment on above: Performed By: #### C BC #### [facility] [address] [place] [address] Dr. Millie Flores Erythrocyte distribution width (RBC) [Ratio] 13.9 % Normal 11.0-15.0 [facility] Comment on above: Performed By: #### C BC #### [facility] [address] [address] [address] Millie Flores Hematocrit (Bld) [Volume fraction] 40.9 % Normal 36.0-48.0 [facility] Comment on above: Performed By: #### C BC #### [facility] [address] [place] [address] Dr. Millie Flores Hemoglobin (Bld) [Mass/Vol] 13.3 g/dL Normal 12.0-16.0 [facility] Comment on above: Performed By: #### C BC #### [facility] [address] [place] [address] Dr. Millie Flores IG # 0.05 10e3/ul Critically high 0.00-0.03 [facility] Comment on above: Performed By: #### C BC #### [facility] [address] [place] [address] Dr. Millie Flores IG % 0.4 % Normal 0.0-0.5 [facility] Comment on above: Performed By: #### C BC #### [facility] [address] [place] [address] Dr. Millie Flores LYMPH # 2.7 103/ul Normal 1.2-3.8 [facility] Comment on above: Performed By: #### C BC #### [facility] [address] [place] [address] Dr. Millie Flores Lymphocytes/100 WBC (Bld) 20.2 % Critically low 20.5-60.0 [facility] Comment on above: Performed By: #### C BC #### [facility] [address] [place] [address] Dr. Millie Flores MANUAL DIFF REQ NO Normal [facility] Comment on above: Performed By: #### C BC #### [facility] [address] [place] [address] Dr. Millie Flores MCH (RBC) [Entitic mass] 31.0 pg Normal 26.7-34.0 [facility] Comment on above: Performed By: #### C BC #### [facility] [address] [place] [address] Dr. Millie Flores MCHC (RBC) [Mass/Vol] 32.5 g/dL Normal 29.9-35.2 [facility] Comment on above: Performed By: #### C BC #### [facility] [address] [address] [address] Millie Flores MCV (RBC) [Entitic vol] 95.3 fL Normal 81.0-99.0 [facility] Comment on above: Performed By: #### C BC #### [facility] [address] [address] [address] Millie Flores MONO # 1.5 103/ul Critically high 0.3-0.8 [facility] Comment on above: Performed By: #### C BC #### [facility] [address] [place] [address] Dr. Millie Flores Monocytes/100 WBC (Bld) 11.1 % Normal 1.7-12.0 [facility] Comment on above: Performed By: #### C BC #### [facility] [address] [place] [address] Dr. Millie Flores NEUT # 8.8 103/ul Critically high 1.4-6.5 [facility] Comment on above: Performed By: #### C BC #### [facility] [address] [place] [address] Dr. Millie Flores Neutrophils/100 WBC (Bld) 67.0 % Normal 43.0-75.0 [facility] Comment on above: Performed By: #### C BC #### [facility] [address] [place] [address] Dr. Millie Flores Platelet mean volume (Bld) [Entitic vol] 10.3 fL Normal 9.5-13.5 [facility] Comment on above: Performed By: #### C BC #### [facility] [address] [place] [address] Dr. Millie Flores PLT 215 103/ul Normal 150-450 [facility] Comment on above: Performed By: #### C BC #### [facility] [address] [place] [address] Dr. Millie Flores RBC 4.29 106/ul Normal 4.20-5.40 [facility] Comment on above: Performed By: #### C BC #### [facility] [address] [place] [address] Dr. Millie Flores WBC 13.1 103/ul Critically high 4.0-11.0 [facility] Comment on above: Performed By: #### C BC #### [facility] [address] [place] [address] Dr. Millie Flores ER URINE PROFILEon 1 Bilirubin Ql (U) Negative Normal NEGATIVE [facility] Comment on above: Performed By: #### C BC #### [facility] [address] [place] [address] Dr. Millie Flores Clarity (U) CLEAR Normal CLEAR [facility] Comment on above: Performed By: #### C BC #### [facility] [address] [place] [address] Dr. Millie Flores Color (U) LT. YELLOW Normal YELLOW [facility] Comment on above: Performed By: #### C BC #### [facility] [address] [place] [address] Dr. Millie GILLETTESarah A micrscopic examination will be performed if indicated. Normal [facility] Comment on above: Performed By: #### C BC #### [facility] [address] [place] [address] Dr. Millie Flores Glucose Ql (U) Negative Normal NEGATIVE [facility] Comment on above: Performed By: #### C BC #### [facility] [address] [place] [address] Dr. Millie Flores Hemoglobin Ql (U) Negative Normal NEGATIVE [facility] Comment on above: Performed By: #### C BC #### [facility] [address] [place] [address] Dr. Millie Flores Ketones Ql (U) TRACE Abnormal NEGATIVE [facility] Comment on above: Performed By: #### C BC #### [facility] [address] [place] [address] Dr. Millie Flores LEUKOCYTES MODERATE Abnormal NEGATIVE [facility] Comment on above: Performed By: #### C BC #### [facility] [address] [place] [address] Dr. Millie Flores Nitrite Ql (U) Positive Abnormal NEGATIVE [facility] Comment on above: Performed By: #### C BC #### [facility] [address] [place] [address] Dr. Millie Flores pH (U) 7.5 [pH] Normal 5-9 [facility] Comment on above: Performed By: #### C BC #### [facility] [address] [place] [address] Dr. Millie Flores SPEC GRAVITY 1.015 Normal 1.005-<=1.02 5 [facility] Comment on above: Performed By: #### C BC #### [facility] [address] [place] [address] Dr. Millie Flores UA PROTEIN Negative Normal NEGATIVE/ TRACE [facility] Comment on above: Performed By: #### C BC #### [facility] [address] [place] [address] Dr. Millie Flores UR MICRO IND INDICATED Normal [facility] Comment on above: Performed By: #### C BC #### [facility] [address] [place] [address] Dr. Millie Flores Urobilinogen Qn (U) 1.0 {Robert'U}/dL Normal 0.2 - 1. 0 [facility] Comment on above: Performed By: #### C BC #### [facility] [address] [place] [address] Dr. Millie Flores PROF CHEM 8 (BAS METB)on Anion gap [Moles/Vol] 14.8 mmol/L Normal [facility] Comment on above: Performed By: #### B MP #### [facility] [address] [place] [address] Dr. Millie Flores Calcium [Mass/Vol] 9.2 mg/dL Normal 8.4-10.2 [facility] Comment on above: Performed By: #### B MP #### [facility] [address] [address] [address] Millie Flores Chloride [Moles/Vol] 103 mmol/L Normal 98-107 [facility] Comment on above: Performed By: #### B MP #### [facility] [address] [address] [address] Millie Flores CO2 [Moles/Vol] 24.0 mmol/L Normal 22.0-30.0 [facility] Comment on above: Performed By: #### B MP #### [facility] [address] [address] [address] Millie Flores Creatinine [Mass/Vol] 1.09 mg/dL Critically high 0.52-1.04 [facility] Comment on above: Performed By: #### B MP #### [facility] [address] [address] [address] Millie Flores EGFR-AF MALTESE 60 mL/min/1.73m2 Normal >=60 [facility] Comment on above: Performed By: #### B MP #### [facility] [address] [address] [address] Millie Flores EGFR-NON AF MALTESE 49 mL/min/1.73m2 Critically low >=60 [facility] Comment on above: Performed By: #### B MP #### [facility] [address] [address] [address] Millie Flores Glucose [Mass/Vol] 116 mg/dL Critically high 74-106 [facility] Comment on above: Performed By: #### B MP #### [facility] [address] [address] [address] Millie Flores Potassium [Moles/Vol] 3.8 mmol/L Normal 3.4-5.0 [facility] Comment on above: Performed By: #### B MP #### [facility] [address] [address] [address] Millie Flores Sodium [Moles/Vol] 138 mmol/L Normal 137-145 [facility] Comment on above: Performed By: #### B MP #### [facility] [address] [address] [address] Millie Flores Urea nitrogen [Mass/Vol] 22.0 mg/dL Critically high 7.0-17.0 [facility] Comment on above: Performed By: #### B MP #### [facility] [address] [place] [address] Dr. Millie Flores Urea nitrogen/Creatinine [Mass ratio] 20.2 mg/mg Normal [facility] Comment on above: Performed By: #### B MP #### [facility] [address] [place] [address] Dr. Millie Flores URINE MICROSCOPIC ONLYon BACTERIA LARGE Abnormal NONE SEEN [facility] Comment on above: Performed By: #### C BC #### [facility] [address] [place] [address] Dr. Millie Flores Bacteria identified Cx Nom (U) INDICATED Normal [facility] Comment on above: Performed By: #### C BC #### [facility] [address] [place] [address] Dr. Millie Flores CAST NONE SEEN Normal NONE SEEN [facility] Comment on above: Performed By: #### C BC #### [facility] [address] [place] [address] Dr. Millie Flores Crystals LM Nom (Urine sed) NONE SEEN Normal NONE SEEN [facility] Comment on above: Performed By: #### C BC #### [facility] [address] [place] [address] Dr. Millie Flores Epithelial cells LM Ql (Urine sed) RARE Normal NONE SEEN /RARE [facility] Comment on above: Performed By: #### C BC #### [facility] [address] [place] [address] Dr. Millie Flores MUCOUS NONE SEEN Normal NONE SEEN [facility] Comment on above: Performed By: #### C BC #### [facility] [address] [place] [address] Dr. Millie Flores RBC NONE SEEN Abnormal 0-2 [facility] Comment on above: Performed By: #### C BC #### [facility] [address] [place] [address] Dr. Millie Flores WBC 10-20 Abnormal NONE SEEN [facility] Comment on above: Performed By: #### C BC #### [facility] [id number] Millie Flores XR ABD FLAT_UPon 07-19-2021 [...] by: HANG MACIAS Date: 2021-07-19 00:50 Normal [facility] XR pre/post mri xrayon 05-08 XR pre/post mri xray [facility] Main [place] [address] [place] [address] MRI Report Signed Patient: Areli Hawkins MR#: [id number] : 1945 Acct:[id number] Age/Sex: 75 / F ADM Date: 05/08/21 Loc: [facility] Room: Type: [facility] Attending Dr: Nohelia Kline PA-C Ordering Provider: Nohelia GREWAL Date of Service: 05/08/21 MR/MR lumbar spine wo con: R20.2 ([id number]) XR/XR pre/post mri xray: R20.2 Copies to: Nohelia Kline [facility] MR lumbar spine wo con, XR pre/post [...] Emery Shine M.D.05/08/2021 2:52 PM Dictation Location: [address] [place] [address] Transcribed By: [facility] 05/08/21 8474 Dictated By: Emery Shine II, MD 05/08/21 1402 Signed By: 05/08/21 1452 Normal [facility] XR pre/post mri xrayon 02-03 XR pre/post mri xray [facility] Main [place] [address] [place] [id number] MRI Report Signed Patient: Areli Hawkins MR#: [id number] : 1945 Acct:[id number] Age/Sex: 75 / F ADM Date: 02/03/21 Loc: [facility] Room: Type: [facility] CLI Attending Dr: Moises Miguel MD Ordering Provider: Moises Miguel MD Date of Service: 02/03/21 MR/MR cervical spine wo con: R20.2 PARESTHESIA R29.9 HYPER REFLEXIA M17.12 CERVICAL SPNDY ([id number]) XR/XR pre/post mri xray: C SPINE Copies [...] Allan Salinas M.D.02/03/2021 5:00 PM Dictation Location: [address] [address] Transcribed By: JORGE 05/14/21 1700 Dictated By: BradAllan Will SINGH 02/03/211649 Signed By: 02/03/211699 [facility] Gastroenterology Office/Clin ic Noteon 09-20-2020 Gastroenterology [...] Primary malignant neoplasm of prostate: Father. Normal [facility] Comment on above: Result Comment: Elec tronically Signed By: TEODORO BAÑUELOS, Cristal\.br\Date and Time Signed: 09/20/20 14:17 EST Coding Summary.on 09-06-2020 Coding Summary. CODING DATE: 020 FINAL [facility] STATUS: Home (Routine DC) PAYOR: Medicare [...] Tatianna Burris Date Saved: 09/06/2020 08:17 am Normal [facility] Priority Order-Blair 2019 Priority Order-STAT Comment Invalid Interpretation Code [facility] Comment on above: Result Comment: Rece ived Performed at: [facility] [address] [facility] [place] [id number] MD Hilda Palmer Performed By: #### S ARS-CoV-2, CHETAN, [id number] ####[facility] [address] [place] [address] SARS-CoV-2, NAAon 09-02-2020 SARS-CoV-2 (COVID-19) RNA CHETAN+probe Ql (Resp) Not detected Invalid Interpretation Code Not Detected [facility] Comment on above: Result Comment: This nucleic acid amplification test was developed and its performance characteristics determined by [employer]. Nucleic acid amplification tests include PCR and [...] detected) result in this assay. Performed at: [facility] [address] [place], [place] [id number] MD Hilda Palmer Performed By: #### S ARS-CoV-2, CHETAN, [id number] #### [facility] [address] [place] [address] Consent for Procedure/Surger yon 08-26-2020 Consent for Procedure/Surgery [id number] D:127 Normal [facility] Physician Orderon 08-26-2020 Physician Order [id number] CD:127 Normal [facility] Ambulatory Clinical Summaryo n 08-25-2020 Ambulatory Clinical Summary {[id number]}CD:[id number] Normal [facility] Patient Educationon 08-25-20 20 Patient [...] ? Medicines taken, including vitamins, herbs, eyedrops, ysgp-wjo-rudwyru medicines, and creams. ? Use of steroids [...] medicines have worn off. ? Only take bvhr-xul-dzdjvrt or prescription medicines for pain, discomfort, or [...] 12/01/2012 Document Reviewed: 04/21/2009 ExitCare? Patient Information ?2013 Contacts+. Heartburn Heartburn is a painful, burning sensation [...] caregiver may tell you to use certain bkxd-vry-dcvgdpm medicines (antacids, acid reducers) for mild heartburn. [...] not impro (more content not included)... Normal [facility] Physician Orderon 08-25-2020 Physician Order [id number] D:127 [facility] Physician Referralon 020 Physician Referral [id number] D:127 [facility] Vital Signs Date Time Vital Sign Value Performing Clinician Madi sun 08-27-2023 14:00-0500 Body height 162.56 cm [employer] Other [employer] Other 08-27-2023 14:00-0500 Body mass index (BMI) [Ratio] 42.36 kg/m2 [employer] Other [employer] Other 08-27-2023 14:00-0500 Body weight 111.95 kg [employer] Other [employer] Other 08-27-2023 14:00-0500 Diastolic blood pressure 79 mm[Hg] [employer] Other [employer] Other 08-27-2023 14:00-0500 Respiratory rate 20 /min [employer] Other [employer] Other 08-27-2023 14:00-0500 Systolic blood pressure 142 mm[Hg] [employer] Other [employer] Other 05-29-2023 10:30-0400 Body height 162.56 cm Anurag Ball Other [employer] Other 05-29-2023 10:30-0400 Body mass index (BMI) [Ratio] 41.23 kg/m2 Anurag Ball Other [employer] Other 05-29-2023 10:30-0400 Body weight 108.95 kg Anurag Ball Other [employer] Other 05-29-2023 10:30-0400 Diastolic blood pressure 76 mm[Hg] Anurag Ball Other [employer] Other 05-29-2023 10:30-0400 Respiratory rate 12 /min Anurag Ball Other [employer] Other 05-29-2023 10:30-0400 Systolic blood pressure 123 mm[Hg] Anurag Ball Other [employer] Other 05-03-2023 10:00-0400 Body height 162.56 cm Anurag Ball Other [employer] Other 05-03-2023 10:00-0400 Body mass index (BMI) [Ratio] 40.3 kg/m2 Anurag Ball Other [employer] Other 05-03-2023 10:00-0400 Body weight 106.51 kg Anurag Ball Other [employer] Other 05-03-2023 10:00-0400 Diastolic blood pressure 75 mm[Hg] Anurag Ball Other [employer] Other 05-03-2023 10:00-0400 Respiratory rate 12 /min Anurag Ball Other [facility] [employer] Other 05-03-2023 10:00-0400 Systolic blood pressure 120 mm[Hg] Anurag Ball Other [facility] [employer] Other 01-16-2022 11:55-0400 Body height 162.6 cm Marie eLa MD Work Phone: [facility] 01-16-2022 11:55-0400 Body weight 95.25 kg Marie Lea MD Work Phone: [facility] 01-16-2022 11:55-0400 Diastolic blood pressure 62 mm[Hg] Marie Lea MD Work Phone: [facility] 01-16-2022 11:55-0400 Heart rate 64 /min Marie Lea MD Work Phone: [facility] 01-16-2022 11:55-0400 Systolic blood pressure 150 mm[Hg] Marie Lea MD Work Phone: [facility] 10-05-2021 11:53-0500 Body height 162.56 cm Anurag Thornton Ball Work Phone: [facility] [address] [place] Work Phone: 10-05-2021 11:53-0500 Body mass index (BMI) [Ratio] 34.67 kg/m2 Anurag Thornton Ball Work Phone: [facility] [address] [place] Work Phone: 10-05-2021 11:53-0500 Body surface area Derived from formula 1.96 m2 Anurag Thornton Ball Work Phone: [facility] [address] [place] Work Phone: 10-05-2021 11:53-0500 Body weight 91.63 kg Anurag Thornton Ball Work Phone: [facility] [address] [place] Work Phone: 10-05-2021 11:53-0500 Diastolic blood pressure 80 mm[Hg] Anurag E Ball Work Phone: [facility] [address] [place] Work Phone: 10-05-2021 11:53-0500 Heart rate 69 /min Anuarg E Ball Work Phone: [facility] [address] [place] Work Phone: 10-05-2021 11:53-0500 Systolic blood pressure 127 mm[Hg] Anurag E Ball Work Phone: [facility] [address] [place] Work Phone: 06-22-2021 11:00-0400 Body height 162.56 cm Carlos Gong Other [employer] Other 06-22-2021 11:00-0400 Body mass index (BMI) [Ratio] 35.18 kg/m2 Carlos Gong Other [employer] Other 06-22-2021 11:00-0400 Body weight 92.99 kg Carlos Gong Other [employer] Other 06-22-2021 11:00-0400 Diastolic blood pressure 84 mm[Hg] Carlos Gong Other [employer] Other 06-22-2021 11:00-0400 Respiratory rate 18 /min Carlos Gong Other [employer] Other 06-22-2021 11:00-0400 Systolic blood pressure 138 mm[Hg] Carlos Gong Other [employer] Other Encounters Encounter Date Encounter Type Care Provider Facility Start: 10-14-2023 End: 10-15-2023 ambulatory Bryant Richardson MD Facility: [facility] Start: 10-07-2023 End: 2023 ambulatory Bryant Richardson MD Facility: [facility] Start: 10-01-2023 End: 10-01-2023 ambulatory Anurag Bolton Other [employer] Other Start: 10-01-2023 Telephone encounter Anurag Bolton [facility] Start: 09-10-2023 End: 09-10-2023 ambulatory Anurag Bolton Other [employer] Other Start: 09-10-2023 Telephone encounter Anurag Bolton [facility] Start: 08-28-2023 End: 08-28-2023 ambulatory Anurag Bolton Other [employer] Other Start: 08-28-2023 Telephone encounter Anurag Bolton [facility] Start: 08-27-2023 End: 08-27-2023 ambulatory Anurag Oj Other [employer] Other Start: 08-27-2023 Office outpatient visit 15 minutes Anurag Ball [facility] Start: 08-06-2023 End: 08-06-2023 ambulatory Anurag Oj Other [employer] Other Start: 08-06-2023 Nursing evaluation o f patient and report Anurag Oj [facility] Start: 06-10-2023 End: 06-10-2023 ambulatory Anurag Oj Other [employer] Other Start: 06-10-2023 Telephone encounter Anurag Ball [facility] Start: 05-29-2023 End: 05-29-2023 ambulatory Anurag Ball Other [employer] Other Start: 05-29-2023 Office outpatient visit 15 minutes Anurag Ball [facility] Start: 05-06-2023 End: 05-06-2023 ambulatory Anurag Ball Other [employer] Other Start: 05-06-2023 Telephone encounter Anurag Bolton FP [facility] Start: 05-03-2023 End: 05-03-2023 ambulatory Anurag Bolton Other [employer] Other Start: 05-03-2023 Office outpatient visit 25 minutes Anurag Bolton [facility] Start: 04-25-2023 End: 04-25-2023 ambulatory Anurag Bolton Other [employer] Other Start: 04-25-2023 Telephone encounter Anurag Bolton FP [facility] Start: 02-01-2022 Telephone encounter Sabas Lea MD Work Phone: Neurology Comment on above: Results Start: 01-16-2022 End: 01-16-2022 Patient encounter procedure Marie Lea MD Work Phone: Neurology Comment on above: 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); Abnormal finding of blood chemistry, unspecified Start: 12-28-2021 End: 12-28-2021 ambulatory Carlos Gong Other [employer] Other Start: 12-28-2021 Office outpatient visit 15 minutes Carlos Gong [facility] Neurosurgery Start: 12-23-2021 End: 12-23-2021 Adult health examination Anurag Bolton Other [employer] Other Start: 10-05-2021 Office outpatient visit 25 minutes Anurag Norberto Oj Work Phone: [facility] [address] [place] Work Phone: Start: 09-07-2021 End: 09-08-[address] ROSI GONG Facility:[facility]1 Start: 08-30-2021 End: 08-30-[address] ROSI GONG Facility:[facility] Start: 07-29-2021 End: 07-31-2021 Evaluation and management of inpatient DR YARITZA COOK Facility:[facility]1 Start: 07-19-2021 End: 07-19-[address] ROSI GONG Facility:[facility] Start: 06-22-2021 Office outpatient ne w 45 minutes Calros CELESTIN [facility] Neurosurgery Start: 09-22-2020 End: 09-23-[address] ROSI GONG Facility:[facility]1 Procedures Date Procedure Procedure Detail Performing Clinician Start: 01-11-2022 Adult depression scr eening assessment Marie Lea MD Work Phone: Start: 04-08-2015 End: 12-23-2021 Screening mammography Anurag Bolton Other Start: 05-04-2014 End: 12-23-2021 General examination of patient Anurag Bolton Other Hernia repair Anurag Ruth farzaneh Work Phone: Hysterectomy Anurag Bolton Work Phone: Screening for malign ant neoplasm of breast Anurag Bolton Other Small intestine excision Tay Bolton Work Phone: Tonsillectomy Anurag Ruth farzaneh Work Phone: Plan of Treatment Date Care Activity Detail Author Start: 01-16-2025 DIABETES SCREEN DIABETES SCREEN [facility] Start: 01-11-2023 Adult depression screening assessment DEPRESSION SCREENING [facility] Start: 01-16-2022 End: 03-18-2022 CRYOGLOBULIN, QUAL, REFLEX TO CASSI AND IGG,A,M [facility] Work Phone: Comment on above: Expected: 01/16/2022 , Expires: 03/18/2022 Start: 09-23-2021 ADVANCE DIRECTIVE DISCUSSION ADVANCE DIRECTIVE DISCUSSION [facility] Start: 2012 BONE DENSITY BONE DENSITY [facility] Start: 2012 PNEUMOVAX AGE 65 AND OVER WITH 5YR LOOKBACK (#1) PNEUMOVAX AGE 65 AND OVER WITH 5YR LOOKBACK (#1) [facility] Start: 1997 SHINGRIX VACCINE (1 of 2) SHINGRIX VACCINE (1 of 2) [facility] Start: 1992 COLOGUARD (FIT-DNA) COLOGUARD (FIT-D NA) [facility] Start: 1992 Colonoscopy COLONOSCOPY [facility] Start: 1992 COLORECTAL CANCER SCREENING COLORECTAL CANCER SCREENING [facility] Start: [address] COLONOGRAPHY [facility] Start: 1992 FECAL OCCULT BLOOD FECAL OCCULT BLOO D [facility] Start: 1992 LIPID SCREEN LIPID SCREEN [facility] Start: 1992 SIGMOIDOSCOPY SIGMOIDOSCOPY [facility] Start: 1987 Mammography MAMMOGRAM [facility] Start: 1966 Urine microalbumin profile DTAP,TDAP,TD (1 - Tdap) [facility] Start: 1965 HEPATITIS C [facility] Immunizations Immunization Date Immunization Notes Care Provider Fa jorje 08-06-2023 influenza, high dose seasonal, preservative-free Anurag Bolton Other [employer] Other 08-07-2022 COVID-19 Pfizer (Pediatric) Anurag Bolton Other [employer] Other 08-07-2022 influenza virus vaccine, split virus (incl. purified surface antigen) Anurag Bolton Other [employer] Other 01-30-2022 COVID-19 Vaccine Pfi zer - Documentation Purposes Only Anurag Bolton Other [employer] Other 08-08-2021 Fluzone High-Dose Quadrivalent 0.7 ML Intramuscular Suspension Prefilled Syringe Anurag Bolton Work Phone: [facility] [employer] [address] [place] Work Phone: 06-27-2021 Moderna COVID-19 Vaccine 100 MCG/0.5ML Intramuscular Suspension Anurag Bolton Work Phone: [facility] [employer] [address] [place] Work Phone: 06-20-2021 Pfizer-BioNTech COVID-19 Vacc 30 MCG/0.3ML Intramuscular Suspension Anurag Bolton Work Phone: [facility] [employer] [address] [place] Work Phone: 11-17-2020 Pfizer-BioNTech COVID-19 Vacc 30 MCG/0.3ML Intramuscular Suspension [facility] [place] Work Phone: 10-27-2020 Pfizer-QualvuNTEUDOWEB COVID-19 Vacc 30 MCG/0.3ML Intramuscular Suspension Anurag Bolton Work Phone: [place] [address] [place] Work Phone: 06-28-2020 Fluad Quadrivalent 0 .5 ML Intramuscular Prefilled Syringe Anurag Bolton Work Phone: [place] [address] [place] Work Phone: 07-07-2019 influenza, high dose seasonal, preservative-free Anurag Bolton Work Phone: [address] Work Phone: 07-15-2018 influenza, high dose seasonal, preservative-free Anurag Bolton Work Phone: [address] Work Phone: 07-23-2017 influenza, high dose seasonal, preservative-free Anurag Bolton Work Phone: [address] Work Phone: 02-05-2017 pneumococcal conjuga te vaccine, 13 valent Anurag Bolton Work Phone: [address] Work Phone: 02-05-2017 pneumococcal Conjuga te, unspecified formulation; Translations: [Need for prophylactic vaccination against Streptococcus pneumoniae (pneumococcus)] Anurag Bolton Other [employer] Other 07-05-2016 influenza virus vaccine, split virus (incl. purified surface antigen) Anurag Bolton Other [employer] Other 07-05-2016 influenza, high dose seasonal, preservative-free [facility] [address] [place] Work Phone: 09-23-2015 pneumococcal polysaccharide vaccine, 23 valent [facility]ag Bolton [facility] [address] [place] Work Phone: 08-30-2015 influenza, seasonal, injectable, preservative free [facility]urag Bolton [facility] [address] [place] Work Phone: 07-05-2014 influenza, high dose seasonal, preservative-free [facility]urag Bolton [facility] [place] Work Phone: 02-02-2013 pneumococcal polysaccharide vaccine, 23 valent [facility]ag [facility] [address] [employer] Work Phone: Payers Date Payer Category Payer Medicare 2023 Unknown 2020 Unknown MMO MMO MEDICARE SUPPLEMENT [id number] 2020-Present [phone] [address] [place] [address] Indemnity [id number] 2012 Medicare MEDICARE MEDICAR E A AND B [id number] 2012-Present [phone] [address] [address] [place] [address] Medicare [id number] 1959 Medicare [id number] 1959 Unknown [id number] 1947 Unknown [id number] 1947 Unknown [id number] 1947 Unknown [id number] 1947 Unknown [id number] 1947 Unknown [id number] 1947 Unknown [id number] 1947 Unknown [id number] Social History Date Type Detail Facility Daily caffeine consumption Daily caffeine consumption [facility] Other Comment on above: 3 diet pops daily.; Start: 01-16-2022 Tobacco smoking stat [facility] Never smoked tobacco [facility] Start: 01-16-2022 Tobacco use and exposure Smokeless tobacco non-user [facility] Start: 01-16-2022 Alcohol intake Ex-drinker (finding) [facility] Start: 1945 Sex Assigned At Female [facility] Start: 12-31-2021 End: 01-10-2022 Exposure to SARS-CoV-2 (event) Not sure [facility] Sex Assigned At Sex Assigned At Bir th [facility] Other Clinical Notes 06-22-2021 to 10-01-2023 Note Date & Type Note Facility 10-01-2023 Evaluation note Encounter Date Diagnosis Assessment Notes Sep, Primary hypertension (ICD-10 - I10) [facility] Other 12-05-2023 Evaluation note* Encounter Date Diagnosis [...] index [BMI] 40.0-44.9, adult (ICD-10 - Z68.41) [employer] Other 12-05-2023 Evaluation note* Encounter Date Diagnosis [...] [BMI ] 40.0-44.9, adult (ICD-10 - Z68.41) [employer] Other 09-06-2023 Evaluation note* Encounter Date Diagnosis [...] as needed. Continue OTC treatment for now. [employer] Other 08-11-2023 Evaluation note* Encounter Date Diagnosis [...] (ICD-10 - R79.89) r/o DVT w/ venous [employer] Other 05-12-2022 Miscellaneous Notes* Telephone Encounter - [...] relief. Marie Lea MD documented [facility] Instructions* Patient Instructions* Marie Lea MD - [...] it on your ownagain. documented in this encounterUniversity [facility]als [facility]04-[facility]-2022 NoteHNO ID: [id number] Author: Samantha Lopez MD Service: ? Author Type: Physician Type: Progress Notes Filed: 01/22/2022 3:56 PM Note Text: [facility] Neuromuscular Center New Patient Evaluation Consulting Provider: Anurag Bolton ([facility]) [address] [facility] [address] Consultation requested by the above doctor for [...] a workup by a local neurologist in [facility], which performed MR of the lumbar spine [...] for reported prolon (more content not included)... [facility]04-26-2022 History of Present illness Narrative* Samantha Lopez MD - 01/16/2022 1:00 PM EDT Images from the original note were not included. [facility] Neuromuscular Center New Patient Evaluation Consulting Provider: Anurag Bolton ([facility]) [address] [place] [address] Consultation requested by the above doctor for [...] a workup by a local neurologist in [facility], which performed MR of the lumbar spine [...] raising-bilaterally negative COORDINATION/GAIT: Normal finger-to- nose-finger and [id number]-zdac bilaterally. Intact rapid alternating movements bilaterally. Gait [...] 2015. Reports having some more recent imaging (2020) of the lumbar spine but did not [...] will be communicated to the patient via telephone/BookTourt. Patient to call office if not contacted after expected testing turnaround time. To aid with communication, patients (and primary care physicians) can sign up for [employer] (or [employer]), which allows online appointment scheduling, transmission of labs results and chart notes, andsecure email communication. To establish either account, visit [email or web address]. Marie Lea MD Neuromuscular Medicine (NM) Fellow In the service of Dr. Samantha Lopez (NM Staff) [facility] STAFF PHYSICIAN NOTE OF PERSONAL INVOLVEMENT IN [...] Lopez MD cc: Referring provider: Anurag Bolton ([facility]) [address] [place] [address] Areli Hawkins [phone] [address] [place] [address] documented in this encounterUniversity [facility]-07-2022 Evaluation note* Encounter Date Diagnosis Assessment Notes [...] re-evaluation. Dec, Sensory neuropathy (ICD-10 - G62.9) [employer] Other 11-06-2021 NoteCONSULTATION Consultation Date: 07/30/2021 REASON [...] repeat urine cu (more content not included)...[id number] * Encounter Date Diagnosis Assessment [...] May, Post menopausal syndrome (ICD-10 - N95.1) [employer] Other evaluation note* Diagnosis Hereditary and idiopathic peripheral neuropathy- Primary Unspecified hereditary and idiopathic peripheral neuropathy Abnormal finding of blood chemistry, unspecified documented in this encounter [facility] note* Diagnosis Abnormality of gait- Primary documented in this encounter [facility] noteNo InformationNort [employer] Other Hisxcpq general Narrative - Reported* Type Description Date Medical History Uterine Cancer Medical History Hypertension Medical History Obesity Medical History Depression Medical History Anxiety Medical History cholecystecomy Surgical History cholecystectomy Surgical History total hysterectomy Hospitalization History SEE ABOVE [employer] Other Hisajhp general Narrative - Reported* Type Description Date Medical History Uterine Cancer Medical History Hypertension Medical History Obesity Medical History Depression Medical History Anxiety Medical History cholecystecomy Surgical History cholecystectomy Surgical History total hysterectomy Surgical History bowel surgery Hospitalization History SEE ABOVE [employer] Other History general Narrative - Reported* Type Description Date Medical History Uterine Cancer Medical History Hypertension Medical History Obesity Medical History Depression Medical History Anxiety Medical History cholecystecomy Surgical History Problem Title : CHOL ECYSTECTOMY (25334), Problem Status : Active, Surgical History Problem Title : EXPL ORATORY LAPAROTOMY WITH LYSIS OF ADHESIONS (29852), Problem Status : Active, Surgical History Problem Title : past surgical history reviewed, Problem Description : past surgical history reviewed, Problem Comment : reviewed - no changes required, Problem Status : Resolved, Surgical History Problem Title : surg ical procedures, hx of, Problem Description : surgical procedures, hx of, Problem Comment : Coty 1996 Total Hyst 2010 - Uterine cancer - Phibbs (sees [employer] now), Problem Status : Resolved, Surgical History Problem Title : AMANDA AND BSO (TOTAL ABDOMINAL HYSTERECTOMY AND BILATERAL SALPINGO-OOPHORECTOMY) (15736), Problem Status : Active, Hospitalization History SEE ABOVE [employer] Other Reason for referral (narrative)* Reason Referral for left si ded low back pain and left hip pain Diagnosis 1 Acute left-sided low back pain without sciatica (M54.50) Diagnosis 2 Primary osteoarthrit is of left hip (M16.12) Referral Organization [facility] Ike roni Referring Provider First Name Anurag Referring Provider Last Name Oj Referring Provider Specialty Internal Me dicine Referred Organization [facility] Referred Address [address], [place],[address] Referred Provider Specialty Pain Medicin e Referral [...] XR of lumbar spine and left hip [employer] Other Summary Purpose Family History No Family History Records FoundUnknown Family Member Name Dates Details Family history [...] for follow-up of a hospitalization for D/C [facility] 08/09/2021. * Patient is in the office for the first time after being seen in consultation at [facility] last month for an episode of [...] section and content) DATE CREATED AUTHOR 08/02/2021 [facility] DATE CREATED AUTHOR AUTHOR'S ORGANIZ ATION 09/13/2021 [facility] DATE CREATED AUTHOR AUTHOR'S ORGANIZ ATION 10/06/2021 [employer] DATE CREATED AUTHOR AUTHOR'S ORGANIZ ATION 11/10/2021 [facility] DATE CREATED AUTHOR AUTHOR'S ORGANIZ ATION 02/03/2022 [facility] DATE CREATED AUTHOR AUTHOR'S ORGANIZ ATION 10/18/2023 [facility] Source Comments (unrecognize d section and content) In the event this informatio n is protected by the Federal Confidentiality of Alcohol and Drug Abuse Patient Records regulations: The Federal rules restrict any use of the information to criminally investigate or prosecute any alcohol or drug abuse patient.[facility] CenterIn the event this information is protected by the Federal Confidentiality of Alcohol and Drug Abuse Patient Records regulations: The Federal rules restrict any use of the information to criminally investigate or prosecute any alcohol or drug abuse patient.[facility] Reason for Visit (unrecogniz ed section and content) Reason Comments New Patient Reason Comments Results Care Teams (unrecognized sec tion and content) Community Leader Relationship Specialty Start Date End Date Anurag Bolton, DO [address] [place] [address] Physician Internal Medicine 01/10/22 Community Leader Relationship Specialty Start Date End Date Anurag Bolton, DO [address] [place] [id number] Physician Internal Medicine 01/10/22 FOR RECORDS PERTAINING [...] BE BASED ON THE PRIMARY CLINICAL RECORDS. [facility]. provides no warranty or guarantee of the accuracy or completeness of information in this document.
--- NOTE | 2023-10-24 11:34 | P.CN_ITS ---
Consult Note: HPI Data of Consult Patient: known to practice within the last 3 years Consult date: 10/07/23 Requesting Physician: Iraida Monique NP Primary Care Provider: Anurag Bolton, Consult Narrative Reason for consult: low back pain Narrative: 77yof who presents for evaluation. she has had longstanding low back pain, now worsened in past several months. 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 has engaged in >6 weeks of provider directed home exercise program, with minimal benefit. has been evaluated by neurosurgery, who did not recommend surgery at the time. utilizes tylenol, cannot tolerate nsaids. denies adverse med side effects. 20% improvement for 30 mints from bilateral L4-5 L5-S1 facet medial branch block #1 cc:: CC: Iraida Monique NP Review of Systems ROS Status of ROS 10 or more systems reviewed and unremark able except as noted in history and below [facility] Medical History (Updated 10/24/23 @ 11:35 by Iraida Monique NP) Sacroiliitis ?M46.1 - Sacroiliitis, not elsewhere classified (ICD-10) Thrombosis ?I82.90 - Acute embolism and thrombosis of unspecified vein (ICD-10) Uterine cancer ?C55 - Malignant neoplasm of uterus, part unspecified (ICD-10) Lumbar spinal stenosis ?M48.061 - Spinal stenosis, lumbar region without neurogenic claudication (ICD-10) Heartburn ?R12 - Heartburn (ICD-10) Acid reflux ?K21.9 - Gastro-esophageal reflux disease without esophagitis (ICD-10) Heart murmur ?R01.1 - Cardiac murmur, unspecified (ICD-10) Hypertension ?I10 - Essential (primary) hypertension (ICD-10) Surgical History (Updated 10/07/23 @ 14:07 by Codi Roberson) History of intestinal surgery ?Z98.890 - Other specified postprocedural states (ICD-10) History of cholecystectomy ?Z90.49 - Acquired absence of other specified parts of digestive tract (ICD- 10) H/O: hysterectomy ?Z90.710 - Acquired absence of both cervix and uterus (ICD-10) Meds Home Medications and Allergies Home Medications Medication Instructions Recorded Confirmed Type acetaminophen 500 mg tablet (Pain 1,000 mg PO TID PRN pain 10/07/23 10/14/23 History Relief (acetaminophen)) atenolol 50 mg tablet 50 mg PO Q24H 10/07/23 10/14/23 History cyclobenzaprine 10 mg tablet 10 mg PO TID 10/07/23 10/14/23 History hydrochlorothiazide 25 mg tablet 25 mg PO DAILY 10/07/23 10/14/23 History Allergies Allergy/AdvReac Type Severity Reaction Status Date / Time No Known Drug Allergies Allergy Verified 10/14/23 09:30 Exam Narrative Exam Narrative: Psych-alert and oriented x 3. Attentive and appropriate, constitutionally normal, displays normal mood and affect per situation.? There are no obvious deficits in memory, reasoning, or intellect.? Skin-no obvious rashes, bruising, erythema noted to the patient's area of pain. Extremities- extremities are warm with minimal edema and palpable pulses. Lumbar-no significant tenderness to palpation noted in the lumbar spine and paraspinal musculature.? Pain is elicited with extension, and lateral rotation of the lumbar spine. Range of motion is slightly diminished with these motions due to pain. Facet loading maneuvers are positive bilaterally and do appear to be concordant with the patient's normal complaints of pain. pain over left PSIS, positive modified betsy fadir thigh thrust on left? Coordination remains intact.? Gait remains non-antalgic. Constitutional Documenting provider has reviewed patient's vital signs: yes Common normals: no apparent distress, oriented x3, healthy appearing, alert and well nourished General appearance: cooperative [facility] Common normals: normocephalic, hearing grossly normal bilaterally and moist oral mucous membranes Head and scalp: normocephalic Eye Common normals: PERRL Pupil: PERRL Neck & C-Spine Common normals: full ROM General: normal visual inspection Chest Common normals: inspection of chest normal Respiratory Common normals: normal respiratory effort, no retractions and no use of accessory muscles Neuro Common normals: oriented x3, CN's II-XII intact bilaterally, moves all extremities, no focal motor deficits, no sensory deficits noted and deep tendon reflexes 2+ bilaterally Sensorium/orientation: alert Motor exam: strength 5/5 throughout and no movement abnormalities noted Psych Common normals: mental status grossly normal, thought process normal, cooperative, affect normal, speech normal and activity/motor behavior normal Speech: normal speech Thought process: normal thought process Results Additional Findings Additional findings: I have checked an OARRS report on this patient today and there are no aberrancies noted in the prescribing history.?? A drug screen was completed and reviewed within the last year, and if there has not been a drug screen completed we ordered one today to monitor higher risk, state monitored pain medication use. As part of providing excellent, safe, comprehensive care, the following was completed at our patient's visit: 1. A medication reconciliation and review to ensure accurate knowledge of current/active medications, including asking our patients to inform us about any inap-gjt-wwaeqty medications or herbal remedies/nutritional supplements/alternative remedies. 2. A review to specifically ensure our patients have had annual screening for: elevated body mass index (BMI), tobacco use, screening for depression, and screening for unhealthy alcohol use. When screening is concerning, patients are provided with education and the specific recommendation to discuss the concerning health issue and treatment options with their primary care provider. Assessment and Plan Assessment and Plan (1) Lumbar spondylosis: (2) Sacroiliitis: Plan left SIJ injection under fluoroscopy with Dr Richardson continue HEP as tolerated f/u 1 week after injection
== END 2023-10-24 11:10 | disposition home or self-care (01) ==
LOC: PM 11:10
PROVIDERS: PCP Internal Medicine; Visit Provider Nurse Practitioner
DX: M47.816 Spondylosis without myelopathy or radiculopathy, lumbar region (principal); M46.1 Sacroiliitis, not elsewhere classified
CPT/HCPCS: G0463

== ENCOUNTER 2023-11-04 07:49 | Day surgery (SDC) | payer MEDICARE, OTHER, SELFPAY ==
--- OUTSIDE RECORDS SUMMARY | 2023-11-04 07:53 | XMS_ITS | CCD ---
Author Name Unknown Address [address] [facility] [address] [place] [address] Organization [facility] Care Team Providers Care Strategic Sourcing Manager Name Role Phone BELTRAN, DR ROSI Thornton Primary Care Unavailable HAY, DR CR Admitting Unavailable HAY, DR CR Attending Unavailable HAY, DR CR Consulting Unavailable , Hang Consulting Unavailable GONG, DR ROSI Thornton Primary Care Unavailable PAY, DR CRANE Admitting Unavailable PAY, DR CRANE Attending Unavailable PAY, DR CRANE Consulting Unavailable Monzon, Alvin Consulting Unavailable NILL, DR VIGIL Consulting Unavailable FAWWASarah, Admitting Unavailable FASHAIKH VERGARA Attending Unavailable GONG, DR ROSI Thornton Primary Care Unavailable Policaro, Geovani Consulting Unavailable Jessica, Moreno Consulting Unavailable ROBBIE, RIYA Consulting Unavailable FAWWAD, Consulting Unavailable GONG, DR ROSI Thornton Primary [...] Unavailable Carlos Gong Unavailable Anurag Bolton Unavailable Debra BAÑUELOS, Bryant Onofre Attending Unavailable Debra BAÑUELOS, Bryant Onofre Attending Unavailable Allergies Allergy Classification Reported Allergen(s) Allergy Type Date of Onset Reaction(s) Facility (1 source) patient allergy list reviewed by nurse or physicia Propensity to adverse reactions 8 Comment:Done EVRGR Other (1 source) Allergies Reconciled Propensity to adverse reactions Unknown EVRGR Other Medications Current Medications Medication Drug Class(es) Dates Sig (Normalized) Sig (Original) atenolol 50 mg oral tablet (17 sources) beta-Adrenergic Louis take 1 tablet by mouth every twenty-four hours Atenolol 50 MG 1 tablet Orally Once a day Active 24 hr buPROPion hydrochloride 150 mg extended release oral tablet (10 sources) Aminoketone Start: 05-29-2023 take 1 tablet by mouth every twenty-four hours buPROPion HCl ER (XL) 150 MG 1 tablet in the morning Orally Once a day for 30 days May, Active escitalopram 10 mg oral tablet (12 sources) Serotonin Reuptake Inhibitor Start: 05-06-2023 take [...] Oral daily for 30 *Pick strength-form from [employer] for eRX* Feb, Active Start: 12-08-2021 take [...] times daily for 30 *Pick strength-form from [employer] for eRX* Dec, Active Completed/Discontinued Medications Medication Drug Class(es) Dates Sig (Normalized) Sig (Original) etodolac 500 mg oral tablet (7 sources) Nonsteroidal Anti-inflammatory Drug Start: 08-27-20 23 take 1 tablet by mouth every twelve hours Etodolac 500 MG 1 tablet with food Orally Twice a day for 15 days Aug, Not-Taking/PRN hydroCHLOROthiazide 25 mg oral tablet (18 sources) Thiazide Diuretic Start: 08-02-20 21 take [...] OFF metoprolol tartrate 50 mg oral tablet (16 sources) beta-Adrenergic Louis Start: 08-15-20 21 take 1 tablet by mouth twice daily Metoprolol Tartrate 50 MG Oral Tablet Take 1 tablet twice daily Quantity: 180 Refills: 3 Ordered: 01-Sep-2021 DO Start : 15-Aug-2021 Active omeprazole 40 mg delayed release oral capsule (17 sources) Proton Pump Inhibitor Start: 11-30-19 21 [...] ANXIETY DISORDERS] Onset: 09-01-2021 Chronic Cardiac dysrhythmias (14 sources) Paroxysmal atrial fibrillation; Translations: [Paroxysmal atrial fibrillation with RVR] Onset: 09-23-2021 Chronic Complications of surgical procedures or medical care (13 sources) Postprocedural intestinal obstruction, unspecified as to partial versus complete; Translations: [Postprocedural intestinal obstruction, unspecified as to partial versus complete] Episodic Deficiency and other anemia (1 source) Anemia, unspecified Episodic Diabetes mellitus without complication (16 sources) Impaired fasting glycemia; Translations: [Impaired fasting glucose] Onset: 06-22-2015 Resolved: 12-23-2021 Episodic Diseases of white blood cells (1 source) Elevated white blood cell count, unspecified; Translations: [ELEVATED WHITE BLOOD CELL COUNT UNS] Onset: 08-21-2021 Chronic Disorders of lipid metabolism (13 sources) Pure hypercholesterolemia ; Translations: [Pure hypercholesterolemia [...] 08-21-2021 Episodic Genitourinary symptoms and ill-defined conditions (14 sources) Personal history of urinary (tract) infections; Translations: [Dysuria] Onset: 08-21-2021 Episodic Intestinal obstruction without hernia (3 sources) Partial intestinal obstruction, unspecified as to cause; Translations: [PART INTESTINAL OBST UNS TO CAU] Onset: 07-29-2021 Episodic Malaise and fatigue (2 sources) Other fatigue Episodic Menopausal disorders (16 sources) Menopausal and postmenopausal disorders; Translations: [Menopausal and female climacteric states] Onset: 06-22-2021 Resolved: 06-22-2021 Chronic Mood disorders (20 sources) Depression; Translations: [Recurrent major depression in full remission] Onset: 05-04-2014 Resolved: 12-23-2021 Chronic Osteoarthritis (6 sources) Osteoarthritis of left hip joint; Translations: [Unilateral primary osteoarthritis, left hip] Chronic Other aftercare (1 source) Other care home (current) drug therapy; Translations: [OTH ORDER TRACER CURRENT DRUG THERAPY] Onset: 08-21-2021 Episodic Other connective tissue disease (1 source) Pain in right leg Episodic Other diseases of veins and lymphatics (1 source) Lymphedema of bilateral lower limbs; Translations: [Other lymphedema] Chronic Other inflammatory condition of skin (13 sources) Intertrigo; Translations: [Erythema intertrigo] Episodic Other nervous system disorders (1 source) Disorder of the peripheral nervous system; Translations: [Hereditary and idiopathic neuropathy, unspecified] Chronic Other nervous system disorders (15 sources) Sensory neuropathy; Translations: [Polyneuropathy, unspecified] Chronic Other nervous system disorders (2 sources) Polyneuropathy, unspecified; Translations: [Sensory neuropathy G62.9] Onset: 06-22-2021 Resolved: 12-28-2021 Chronic Other nervous system disorders (3 sources) Chronic pain; Translations: [Other chronic pain] Chronic Other nervous system disorders (1 source) Abnormal gait; Translations: [Unspecified abnormalities of gait and mobility] Episodic Other nervous system disorders (13 sources) Paresthesia; Translations: [Paresthesia of skin] Episodic [...] Chronic Other nutritional; endocrine; and metabolic disorders (12 sources) Severe obesity; Translations: [Morbid (severe) obesity due to excess calories] Chronic Other nutritional; endocrine; and metabolic disorders (12 sources) Body mass index 40+ - severely obese; Translations: [Body mass index (BMI) 40.0-44.9, adult] Chronic Other nutritional; endocrine; and metabolic disorders (5 sources) Morbid (severe) obesity due to excess calories Chronic Other nutritional; endocrine; and metabolic disorders (5 sources) Body mass index (BMI) 40.0-44.9, adult Chronic Other screening for suspected conditions (not mental disorders or infectious disease) (3 sources) Blood chemistry abnormal; Translations: [Abnormal finding of blood chemistry, unspecified] Episodic Phlebitis; thrombophlebitis and thromboembolism (15 sources) H/O: Deep vein thrombosis; Translations: [Personal [...] TRACT] Onset: 08-21-2021 Episodic Residual codes; unclassified (14 sources) Postmenopausal state; Translations: [Asymptomatic postmenopausal status] Onset: 03-12-2018 Resolved: 12-23-2021 Episodic Residual codes; unclassified (13 sources) Family history of breast cancer; Translations: [Family history of malignant neoplasm of breast] Episodic Spondylosis; intervertebral disc disorders; other back problems (4 sources) Lumbar spondylosis; Translations: [Spondylosis without myelopathy or radiculopathy, lumbar region] Chronic Spondylosis; intervertebral disc disorders; other back problems (20 sources) Spinal stenosis, lumbar region with neurogenic claudication; Translations: [Spinal stenosis of lumbar region] Onset: 04-08-2015 Resolved: 01-26-2022 Episodic Unclassified (1 source) CONTACT W/AND (SUSP) EXPOS COVID-19; Translations: [CONTACT W/AND (SUSP) EXPOS COVID-19] Onset: 08-21-2021 Varicose veins of lower extremity (14 sources) Varicose veins of lower extremity; Translations: [Varicose veins of bilateral lower extremities with pain] Episodic Past or Other Problems Problem Classification Problem Date Documented Da te Episodic/Chronic Cancer of uterus (14 sources) Personal history of malignant neoplasm of other parts of uterus; Translations: [History of malignant neoplasm of female genital organ] Onset: 09-23-2009 Episodic Deficiency and other anemia (13 sources) Anemia; Translations: [Anemia, unspecified] Onset: 06-22-2015 Resolved: 12-23-2021 Episodic Nonmalignant breast conditions (13 sources) Pain of breast; Translations: [Mastodynia] Resolved: 12-23-2021 Episodic Nonspecific chest pain (20 sources) Other chest pain; Translations: [Chest pain, unspecified] Onset: 09-22-2020 Resolved: 12-23-2021 Episodic Other connective tissue disease (13 sources) Pain in limb; Translations: [Pain in [...] Episodic Other nutritional; endocrine; and metabolic disorders (14 sources) Obesity; Translations: [Obesity, unspecified] Resolved: 01-26-2022 [...] pain without sciatica M54.50 Urinary tract infections (18 sources) Urethral syndrome, unspecified; Translations: [Urinary tract infection, site not specified] Onset: 07-20-2021 Resolved: 12-23-2021 Episodic Results Test Name Value Interpretation Reference Range Facility [facility] 02-01-2022 [facility] Telephone (NENMMN) ARELI HAWKINS ([id number]) 1945 F Date Time Provider Department 02/01/22 [...] Status:Closed by MARIE LEA on 02/01/[address] [facility] IMMUNOFIXATION SCREEN, SERUM on 01-19-2022 MPA Result No M protein is identified. No M protein is identified. [facility] Staff Review (MPA) Reviewed by Lilian Pizarro M.D., Ph.D [facility] METHYLMALONIC ACIDon 022 Methylmalonate [Moles/Vol] 216 nmol/L 79 - 376 nmol/L [facility] RONNIE BY IFA WITH REFLEXon Nuclear Ab IF (S) [Titer] Negative Negative [facility] COPPER BLOODon 01-17-2022 Copper [Mass/Vol] 94 ug/dL 80 - 155 ug/dL [facility] HGB A1Con 01-17-2022 Average glucose Estimated from glycated hemoglobin (Bld) [Mass/Vol] 100 mg/dL [facility] HbA1c (Bld) [Mass fraction] 5.1 % 4.3 - 5.6 % [facility] RONNIE BY IFA WITH REFLEXon Nuclear Ab IF (S) [Titer] Negative Normal Negative [facility] Comment on above: Order Comment: Speci men Type: BLOOD SPECIMEN Ordering Facility: [facility] Address: [address] [place] [address] Result Comment: Anti -nuclear antibody test is used as an aid in diagnosis of systemic autoimmune diseases. Where positive and clinically warranted, follow-up using disease-specific testing is recommended. Low positive titers are not uncommon with advanced age, certain chronic infections, and malignancies among others. Test methodology: Indirect fluorescence immunoassay (IFA) using HEp-2 cells. Performed By: #### A CONNIE, IFESC #### [facility] CLIA [id number] [address] [place], [place] [address] [place] C-REACTIVE PROTEIN (CRP)on 0 01-16-2022 CRP [Mass/Vol] mg/L <0.9 mg/dL [facility] CNOVon 01-16-2022 CNOV Office Visit (NENMMN ) ARELI HAWKINS ([id number]) 1945 F Date Time Provider Department 01/16/22 1:00 PM MARIE LEA During your visit today, we recorded the following information about you: Pulse Blood pressure Weight Height 64/minute 150/62 95.3 kg 1.626 m Samantha Lopez MD 01/22/2022 3:56 PM Signed [facility] New Patient Evaluation Consulting Provider: Anurag Bolton (Lauren) [address] [facility] [address] Consultation requested by the above doctor for [...] a workup by a local neurologist in [facility], which performed MR of the lumbar [...] 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 No* known history of neuromuscular disease [...] of incon (more content not included)... Normal [facility] COPPER BLOODon 01-16-2022 Copper [Mass/Vol] 94 ug/dL Normal 80-155 [facility] Comment on above: Order Comment: Speci men Type: BLOOD SPECIMEN Ordering Facility: [facility] Address: [address] [place] [phone] Result Comment: This test was developed and its performance characteristics determined by [facility]'s [facility] [place] ([facility]). It has not been cleared or approved by the FDA. [facility] is regulated under CLIA as qualified to perform high-complexity testing. This test is used for clinical purposes. It should not be regarded as investigational or for research. Performed By: #### A LUIS F ROSALES #### [facility] CLIA [id number] [address] [place] [address] [place] CRP SerPl-mCncon 01-16-2022 CRP [Mass/Vol] mg/L Normal <0.[address] [facility] Comment on above: Order Comment: Speci men Type: BLOOD SPECIMEN Ordering Facility: [facility] Address: [address] [place] [address] Performed By: #### 3 016-3, B12, 1986-01 #### [facility] CLIA [id number] [address] [place] [address] [place] CRYOGLOBULIN, QUAL, REFLEX T O CASSI AND IGG,A,Mon 01-16-2022 CRYOGLOBULIN, QUALITATIVE NEG 72Hour Normal -72Hour [facility] Comment on above: Order Comment: Martha castorena Type: BLOOD SPECIMEN Ordering Facility: [facility] Address: [address] [place] [address] Result Comment: This test was developed and its performance characteristics determined by [employer] [facility]. It has not been cleared or approved by the US Food and Drug Administration. This test was performed in a CLIA certified laboratory and is intended for clinical purposes. Performed By: [facility] [address] [place] [id number] Financial Analysis Advisor: Hilary Mariano MD Performed By: #### A CONNIE IFKACIEC #### [facility] CLIA [id number] [address] [place] [address] [place] ESR Westergren method (Bld) [Velocity]on 01-16-2022 ESR (Bld) [Velocity] 8 mm/h 0 - 20 mm/hr [facility] ESR (Bld) [Velocity] 8 mm/h Normal 0-20 [facility] Comment on above: Order Comment: Martha castorena Type: BLOOD SPECIMEN Ordering Facility: [facility] Address: [address] [place] [address] Performed By: #### 4 537-7 #### [facility] CLIA [id number] [address] [place] [address] [place] HGB A1Con 01-16-2022 Average glucose Estimated from glycated hemoglobin (Bld) [Mass/Vol] 100 mg/dL Normal [facility] Comment on above: Order Comment: Martha castorena Type: BLOOD SPECIMEN Ordering Facility: [facility] Address: [address] [place] [address] Result Comment: eAG: (Estimated average glucose) is a calculated value from HgbA1c and is loan servicing representative of the average blood glucose level in the last 2-3 month period. Performed By: #### H BA1C #### [facility] CLIA [id number] [address] [place] [address] HbA1c (Bld) [Mass fraction] 5.1 % Normal 4.3-5.[address] [facility] Comment on above: Order Comment: Martha castorena Type: BLOOD SPECIMEN Ordering Facility: [facility] Address: [address] [place] [address] Result Comment: Amer ican Diabetes Association guidelines indicate that patients with HgbA1c in the range 5.7-6.4% are at increased risk for development of diabetes, and intervention by lifestyle modification may be beneficial. HgbA1c greater or equal to 6.5% is considered diagnostic of diabetes. Performed By: #### H BA1C #### [facility] CLIA [id number] [address] [place] [address] IMMUNOFIXATION SCREEN, SERUM on 01-16-2022 MPA RESULT No M protein is identified. Normal No M protein is identified. [facility] Comment on above: Order Comment: Martha castorena Type: BLOOD SPECIMEN Ordering Facility: [facility] Address: [address] [place] [address] Performed By: #### A CONNIE IFESC #### [facility] CLIA [id number] [address] [place] [address] [place] STAFF REVIEW (MPA) Reviewed by Lilian Pizarro M.D., Ph.D Normal [facility] Comment on above: Order Comment: Speci men Type: BLOOD SPECIMEN Ordering Facility: [facility] Address: [address] [place] [address] Performed By: #### A CONNIE IFKACIEC #### [facility] CLIA [id number] [address] [place] [address] [place] KAPPA/CASTILLO,FREE,SERon 2021 Immunoglobulin light chains.kappa.free (S) [Mass/Vol] 31.2 mg/L High 3.3 - 19.4 mg/L [facility] Immunoglobulin light chains.kappa/Immunog lobulin light chains.lambda (S) [Mass ratio] 1.46 0.26 - 1.65 [facility] Immunoglobulin light chains.lambda.free [Mass/Vol] 21.4 mg/L 5.7 - 26.3 mg/L [facility] Immunoglobulin light chains.kappa.free (S) [Mass/Vol] 31.2 mg/L High 3.3-19.[address] [facility] Comment on above: Order Comment: Speci men Type: BLOOD SPECIMEN Ordering Facility: [facility] Address: [address] [place] [address] Performed By: #### K LFRS #### [facility] CLIA [id number] [address] [place] [address] [place] Immunoglobulin light chains.kappa/Immunog lobulin light chains.lambda (S) [Mass ratio] 1.46 Normal 0.26-1.[address] [facility] Comment on above: Order Comment: Speci men Type: BLOOD SPECIMEN Ordering Facility: [facility] Address: [address] [place] [phone] Performed By: #### K LFRS #### [facility] CLIA [id number] [address] [place] [address] [place] Immunoglobulin light chains.lambda.free [Mass/Vol] 21.4 mg/L Normal 5.7-26.[address] [facility] Comment on above: Order Comment: Speci men Type: BLOOD SPECIMEN Ordering Facility: [facility] Address: [address] [place] [address] Performed By: #### K LFRS #### [facility] CLIA [id number] [address] [place] [address] [place] Methylmalonate SerPl-sCncon 01-16-2022 Methylmalonate [Moles/Vol] 216 nmol/L Normal 79-[address] [facility] Comment on above: Order Comment: Speci men Type: BLOOD SPECIMEN Ordering Facility: [facility] Address: [address] [place] [address] Result Comment: This test was developed and its performance characteristics determined by [facility]'s [facility] [place] ([facility]). It has not been cleared or approved by the FDA. [facility] is regulated under CLIA as qualified to perform high-complexity testing. This test is used for clinical purposes. It should not be regarded as investigational or for research. Performed By: #### 1 [id number] #### [facility] CLIA [id number] [address] [place] [address] [place] TSH BLDon 01-16-2022 TSH Qn 1.380 m[IU]/L 0.270 - 4.200 mIU/L [facility] TSH SerPl-aCncon 01-16-2022 TSH Qn 1.380 m[IU]/L Normal 0.270-4.[address] [facility] Comment on above: Order Comment: Speci men Type: BLOOD SPECIMEN Ordering Facility: [facility] Address: [address] [place] [address] Performed By: #### 3 016-3, B12, 1987- #### [facility] CLIA [id number] [address] [place], [place] [id number] [place] VITAMIN B12 BLOODon 01-17-20 Cobalamin (Vitamin B12) [Mass/Vol] 1194 pg/mL 232-1,245 pg/mL [facility] Cobalamin (Vitamin B12) [Mass/Vol] 1194 pg/mL Normal 232-1,[address] [facility] Comment on above: Order Comment: Speci men Type: BLOOD SPECIMEN Ordering Facility: [facility] Address: [address] [place], [place] [id number] Performed By: #### 3 016-3, B12, 1988-01 #### [facility] CLIA [id number] [address] [place] [address] [place] Office Visit (Cardiology)on 10-05-2021 Follow-up [...] Instructions By signing my name below, I, Juwan Argueta LPN ,Eliseibe, attest that this documentation has been prepared under the direction and in the presence of Dr. Stephany Kaye MD. All medical record entries made by the Scribe were at my direction and personally dictated [...] up as needed only Chief Complaint ARELI HAWKINS is being seen for follow-up of a hospitalization for D/C [facility] 08/09/2021. Patient is in the office for the first time after being seen in consultation at [facility] last month for an episode of atrial [...] 05Oct2021 11:53AM Heart Rate69, L Brachial Artery Lvrxbmsi457, LUE, Sitting Obdznpwfl71, LUE, Sitting Height5 ft 4 in Eoxcyd775 lb BMI Vlzdidieeg96.67 kg/m2 BSA Calculated1.96 Tobacco Useb) No Fall [...] Oct 05 2021 12:22PM EST (Author) Normal [employer] Tobacco Screening.on 022 Fall risk assessment a) No falls within the last year -[facility] [address] [place] Work Phone: Tobacco use status CP b) No -[facility] [address] [place] Work Phone: CULTURE URINEon 09-07-2021 CULTURE URINE Culture Observations : LIGHT GROWTH OF MIXED GENITAL RAMSES. NO POTENTIAL PATHOGENS SEEN. Normal [facility] Comment on above: Performed By: #### B MP #### [facility] [address] [address] [address] Millie Flores UA RANDOM W/MICROSCOPICon BACTERIA TRACE Abnormal NONE SEEN [facility] Comment on above: Performed By: #### B MP #### [facility] [address] [address] [address] Millie Flores Bilirubin Ql (U) Negative Normal NEGATIVE [facility] Comment on above: Performed By: #### B MP #### [facility] [address] [address] [address] Millie Flores CAST NONE SEEN Normal NONE SEEN [facility] Comment on above: Performed By: #### B MP #### [facility] [address] [address] [address] Millie Flores Clarity (U) CLEAR Normal CLEAR [facility] Comment on above: Performed By: #### B MP #### [facility] [address] [address] [address] Millie Flores Color (U) LT. YELLOW Normal YELLOW [facility] Comment on above: Performed By: #### B MP #### [facility] [address] [place] [address] Dr. Millie Flores Crystals LM Nom (Urine sed) NONE SEEN Normal NONE SEEN [facility] Comment on above: Performed By: #### B MP #### [facility] [address] [place] [address] Dr. Millie Flores Epithelial cells LM Ql (Urine sed) FEW Abnormal NONE SEEN /RARE [facility] Comment on above: Performed By: #### B MP #### [facility] [address] [place] [address] Dr. Millie Flores Glucose Ql (U) Negative Normal NEGATIVE [facility] Comment on above: Performed By: #### B MP #### [facility] [address] [place] [address] Dr. Millie Flores Hemoglobin Ql (U) Negative Normal NEGATIVE [facility] Comment on above: Performed By: #### B MP #### [facility] [address] [place] [address] Dr. Millie Flores Ketones Ql (U) Negative Normal NEGATIVE [facility] Comment on above: Performed By: #### B MP #### [facility] [address] [place] [address] Dr. Millie Flores LEUKOCYTES SMALL Abnormal NEGATIVE [facility] Comment on above: Performed By: #### B MP #### [facility] [address] [place] [address] Dr. Millie Flores MUCOUS TRACE Abnormal NONE SEEN [facility] Comment on above: Performed By: #### B MP #### [facility] [address] [place] [address] Dr. Millie Flores Nitrite Ql (U) Negative Normal NEGATIVE [facility] Comment on above: Performed By: #### B MP #### [facility] [address] [place] [address] Dr. Millie Flores pH (U) 5.5 [pH] Normal 5-[address] [facility] Comment on above: Performed By: #### B MP #### [facility] [address] [place] [address] Dr. Millie Flores RBC 0-2 Normal 0-[address] [facility] Comment on above: Performed By: #### B MP #### [facility] [address] [place] [address] Dr. Millie Flores SPEC GRAVITY >=1.030 Abnormal 1.005-<=1.[address] [facility] Comment on above: Performed By: #### B MP #### [facility] [address] [place] [address] Dr. Millie Flores UA PROTEIN Negative Normal NEGATIVE/ TRACE [facility] Comment on above: Performed By: #### B MP #### [facility] [address] [address] [address] Millie Flores Urobilinogen Qn (U) 0.2 {Robert'U}/dL Normal 0.2 - 1. [address] [facility] Comment on above: Performed By: #### B MP #### [facility] [address] [place] [address] Dr. Millie Flores WBC 5-10 Abnormal NONE SEEN [facility] Comment on above: Performed By: #### B MP #### [facility] [address] [place] [address] Dr. Millie Flores MM screening mammo BI w/CADo n 09-04-2021 MM screening mammo BI w/CAD [facility] [place] [address] Mammography Report Signed Patient: Areli Hawkins MR#: [id number] : 1945 Acct:[id number] Age/Sex: 75 / F ADM Date: 09/02/21 Loc: [place] Room: Type: DEP CLI Attending Dr: Anurag Bolton DO Ordering [...] Marbella Mistry M.D.09/04/2021 11:34 AM Dictation Location: [facility] Transcribed By: [facility] 09/04/21 1134 Dictated By: Marbella Mistry MD 09/04/21 113 Signed By: 09/04/21 1134 [facility] CBC AUTO DIFFon 08-30-2021 BASO # 0.0 103/ul Normal 0.0-0.[address] [facility] Comment on above: Performed By: #### C BC #### [facility] [address] [address] [address] Millie Flores Basophils/100 WBC (Bld) 0.6 % Normal 0.2-2.[address] [facility] Comment on above: Performed By: #### C BC #### [facility] [address] [address] [address] Millie Flores EO # 0.0 103/ul Normal 0.0-0.[address] [facility] Comment on above: Performed By: #### C BC #### [facility] [address] [place] [address] Dr. Millie Flores Eosinophils/100 WBC (Bld) 0.9 % Normal 0.9-7.[address] [facility] Comment on above: Performed By: #### C BC #### [facility] [address] [place] [address] Dr. Millie Flores Erythrocyte distribution width (RBC) [Ratio] 48.3 % Critically high 11.0-15.[address] [facility] Comment on above: Performed By: #### C BC #### [facility] [address] [place] [address] Dr. Millie Flores Hematocrit (Bld) [Volume fraction] 38.1 % Normal 36.0-48.[address] [facility] Comment on above: Performed By: #### C BC #### [facility] [address] [place] [address] Dr. Millie Flores Hemoglobin (Bld) [Mass/Vol] 12.1 g/dL Normal 12.0-16.[address] [facility] Comment on above: Performed By: #### C BC #### [facility] [address] [place] [address] Dr. Millie Flores IG # 0.07 10e3/ul Critically high 0.00-0.03 [facility] Comment on above: Performed By: #### C BC #### [facility] [address] [place] [address] Dr. Millie Flores IG % 0.8 % Critically high 0.0-0.5 [facility] Comment on above: Performed By: #### C BC #### [facility] [address] [place] [address] Dr. Millie Flores LYMPH # 2.3 103/ul Normal 1.2-3.[address] [facility] Comment on above: Performed By: #### C BC #### [facility] [address] [place] [address] Dr. Millie Flores Lymphocytes/100 WBC (Bld) 26.8 % Normal 20.5-60.[address] [facility] Comment on above: Performed By: #### C BC #### [facility] [address] [place] [address] Dr. Millie Flores MANUAL DIFF REQ NO Normal [facility] Comment on above: Performed By: #### C BC #### [facility] [address] [place] [address] Dr. Millie Flores MCH (RBC) [Entitic mass] 30.7 pg Normal 26.7-34.[address] [facility] Comment on above: Performed By: #### C BC #### [facility] [address] [place] [address] Dr. Millie Flores MCHC (RBC) [Mass/Vol] 31.8 g/dL Normal 29.9-35.[address] [facility] Comment on above: Performed By: #### C BC #### [facility] [address] [place] [address] Dr. Millie Flores MCV (RBC) [Entitic vol] 96.7 fL Normal 81.0-99.[address] [facility] Comment on above: Performed By: #### C BC #### [facility] [address] [place] [address] Dr. Millie Flores MONO # 0.9 103/ul Critically high 0.3-0.8 [facility] Comment on above: Performed By: #### C BC #### [facility] [address] [place] [address] Dr. Millie Flores Monocytes/100 WBC (Bld) 11.4 % Normal 1.7-12.[address] [facility] Comment on above: Performed By: #### C BC #### [facility] [address] [place] [address] Dr. Millie Flores NEUT # 5.1 103/ul Normal 1.4-6.5 [facility] Comment on above: Performed By: #### C BC #### [facility] [address] [place] [address] Dr. Millie Flores Neutrophils/100 WBC (Bld) 59.5 % Normal 43.0-75.0 [facility] Comment on above: Performed By: #### C BC #### [facility] [address] [address] [address] Millie Flores Platelet mean volume (Bld) [Entitic vol] 9.5 fL Normal 9.5-13.[address] [facility] Comment on above: Performed By: #### C BC #### [facility] [address] [place] [address] Dr. Millie Flores PLT 239 103/ul Normal 150-[address] [facility] Comment on above: Performed By: #### C BC #### [facility] [address] [place] [address] Dr. Millie Flores RBC 3.94 106/ul Critically low 4.20-5.40 [facility] Comment on above: Performed By: #### C BC #### [facility] [address] [place] [address] Dr. Millie Flores WBC 8.7 103/ul Normal 4.0-11.[address] [facility] Comment on above: Performed By: #### C BC #### [facility] [address] [place] [address] Dr. Millie Flores PROF 14(COMP METB)on 021 Albumin [Mass/Vol] 3.4 g/dL Critically low 3.5-5.0 [facility] Comment on above: Performed By: #### C ALINE HSTROPN #### [facility] [address] [place] [address] Dr. Millie Flores Albumin/Globulin [Mass ratio] 1.0 {ratio} Normal [facility] Comment on above: Performed By: #### C ALINE, HSTROPN #### [facility] [address] [place] [address] Dr. Millie Flores ALP [Catalytic activity/Vol] 77 U/L Normal 38-[address] [facility] Comment on above: Performed By: #### C ALINE, HSTROPN #### [facility] [address] [place] [address] Dr. Millie Flores ALT [Catalytic activity/Vol] 17 U/L Normal 9-[address] [facility] Comment on above: Performed By: #### C MP, HSTROPN #### [facility] [address] [address] [address] Millie Flores Anion gap [Moles/Vol] 13.1 mmol/L Normal [facility] Comment on above: Performed By: #### C MP, HSTROPN #### [facility] [address] [place] [address] Dr. Millie Flores AST [Catalytic activity/Vol] 19 U/L Normal 14-[address] [facility] Comment on above: Performed By: #### C MP, HSTROPN #### [facility] [address] [place] [address] Dr. Millie Flores Bilirubin [Mass/Vol] 0.2 mg/dL Normal 0.2-1.3 [facility] Comment on above: Performed By: #### C MP, HSTROPN #### [facility] [address] [place] [address] Dr. Millie Flores Calcium [Mass/Vol] 9.2 mg/dL Normal 8.4-10.[address] [facility] Comment on above: Performed By: #### C MP, HSTROPN #### [facility] [address] [place] [address] Dr. Millie Flores Chloride [Moles/Vol] 101 mmol/L Normal 98-107 [facility] Comment on above: Performed By: #### C MP, HSTROPN #### [facility] [address] [place] [address] Dr. Millie Flores CO2 [Moles/Vol] 26.3 mmol/L Normal 22.0-30.0 [facility] Comment on above: Performed By: #### C MP, HSTROPN #### [facility] [address] [place] [address] Dr. Millie Flores Creatinine [Mass/Vol] 0.99 mg/dL Normal 0.52-1.04 [facility] Comment on above: Performed By: #### C MP, HSTROPN #### [facility] [address] [address] [address] Millie Flores EGFR-AF AUSTRIAN >60 Normal >=60 [facility] Comment on above: Performed By: #### C MP, HSTROPN #### [facility] [address] [address] [address] Millie Flores EGFR-NON AF AUSTRIAN 55 mL/min/1.73m2 Critically low >=[address] [facility] Comment on above: Performed By: #### C MP, HSTROPN #### [facility] [address] [address] [address] Millie Flores Globulin (S) [Mass/Vol] 3.8 g/dL Normal [facility] Comment on above: Performed By: #### C ALINE, HSTROPN #### [facility] [address] [place] [address] Dr. Millie Flores Glucose [Mass/Vol] 111 mg/dL Critically high 74-106 [facility] Comment on above: Performed By: #### C ALINE, HSTROPN #### [facility] [address] [address] [address] Millie Flores Potassium [Moles/Vol] 3.4 mmol/L Normal 3.4-5.[address] [facility] Comment on above: Performed By: #### C ALINE, HSTROPN #### [facility] [address] [address] [address] Millie Flores Protein [Mass/Vol] 7.2 g/dL Normal 6.1-8.[address] [facility] Comment on above: Performed By: #### C MP, HSTROPN #### [facility] [address] [address] [address] Millie Flores Sodium [Moles/Vol] 137 mmol/L Normal 137-[address] [facility] Comment on above: Performed By: #### C MP, HSTROPN #### [facility] [address] [address] [address] Millie Flores Urea nitrogen [Mass/Vol] 12.0 mg/dL Normal 7.0-17.[address] [facility] Comment on above: Performed By: #### C MP, HSTROPN #### [facility] [address] [address] [address] Millie Flores Urea nitrogen/Creatinine [Mass ratio] 12.1 mg/mg Normal [facility] Comment on above: Performed By: #### C MP, HSTROPN #### [facility] [address] [address] [address] Millie Flores TROPONIN, HIGH SENSITIVITYon 08-30-2021 HSTROP 6.2 pg/mL Normal 4.0-35.[address] [facility] Comment on above: Result Comment: CUT- OFF POINTS HAVE BEEN ESTABLISHED BASED ON THE FOURTH UNIVERSAL DEFINITIONS OF MYOCARDIAL INFARCTION. THE UPPER REFERENCE LIMIT (URL) OF TROPONIN, DEFINED THE 99TH PERCENTILE OF cTnI DISTRIBUTION IN A REFERENCE POPULATION, HAS BEEN CONFIRMED THE DECISION THRESHOLD FOR MO DIAGNOSIS. Performed By: #### C MP, HSTROPN #### [facility] [address] [address] [address] Millie Flores XR CHEST 1 Von [...] by: ALVIN MONZON Date: 2021-08-30 05:[address] [facility] Complete Blood Count Auto Di ffon 08-09-2021 Basophils (Bld) [#/Vol] 0.0 10*3/uL Normal 0.0-0.2 [facility] Comment on above: Result Comment: PERF ORMED BY: [place] [address] PATHOLOGIST [employer]SIDER ROBYN CASAS M.D. Performed By: #### C BC, LIPASE, LACTIC, CMP #### [facility] [address] Basophils/100 WBC (Bld) 0.3 % Normal . [facility] Comment on above: Performed By: #### C BC, LIPASE, LACTIC, CMP #### [address] Eosinophils (Bld) [#/Vol] 0.3 10*3/uL Normal 0.0-0.45 [facility] Comment on above: Performed By: #### C BC, LIPASE, LACTIC, CMP #### [address] Eosinophils/100 WBC (Bld) 2.8 % Normal . [facility] Comment on above: Performed By: #### C BC, LIPASE, LACTIC, CMP #### [address] Erythrocyte distribution width (RBC) [Ratio] 14.4 % Normal 11.9-15.3 [facility] Comment on above: Performed By: #### C BC, LIPASE, LACTIC, CMP #### [address] Hematocrit (Bld) [Volume fraction] 32.7 % Low 34.0-46.4 [facility] Comment on above: Performed By: #### C BC, LIPASE, LACTIC, CMP #### [address] Hemoglobin (Bld) [Mass/Vol] 11.0 g/dL Low 11.8-15.4 [facility] Comment on above: Performed By: #### C BC, LIPASE, LACTIC, CMP #### [address] Lymphocytes (Bld) [#/Vol] 1.3 10*3/uL Normal 1.00-4.8 [facility] Comment on above: Performed By: #### C BC, LIPASE, LACTIC, CMP #### [address] Lymphocytes/100 WBC (Bld) 14.0 % Normal . [facility] Comment on above: Performed By: #### C BC, LIPASE, LACTIC, CMP #### [place] [id number] [place] MCH (RBC) [Entitic mass] 31.6 pg Normal 24.7-34.3 [facility] Comment on above: Performed By: #### C BC, LIPASE, LACTIC, CMP #### [address] MCV (RBC) [Entitic vol] 94.0 fL Normal 80-100 [facility] Comment on above: Performed By: #### C BC, LIPASE, LACTIC, CMP #### [address] Mean Corpuscular HGB Conc 33.6 g/dL Normal 32.0-35.0 [facility] Comment on above: Performed By: #### C BC, LIPASE, LACTIC, CMP #### [address] Monocytes (Bld) [#/Vol] 1.3 10*3/uL High 0.0-0.8 [facility] Comment on above: Performed By: #### C BC, LIPASE, LACTIC, CMP #### [address] Monocytes/100 WBC (Bld) 13.7 % Normal . [facility] Comment on above: Performed By: #### C BC, LIPASE, LACTIC, CMP #### [address] Neutrophils (Bld) [#/Vol] 6.5 10*3/uL Normal 1.8-7.7 [facility] Comment on above: Performed By: #### C BC, LIPASE, LACTIC, CMP #### [address] Neutrophils/100 WBC (Bld) 69.2 % Normal . [facility] Comment on above: Performed By: #### C BC, LIPASE, LACTIC, CMP #### [address] Nucleated RBC/100 WBC (Bld) [Ratio] 0.1 % Normal 0-0.5 [facility] Comment on above: Performed By: #### C BC, LIPASE, LACTIC, CMP #### [address] Platelet mean volume (Bld) [Entitic vol] 7.1 fL Normal 6.3-10.7 [facility] Comment on above: Performed By: #### C BC, LIPASE, LACTIC, CMP #### [address] Platelets (Bld) [#/Vol] 179 10*3/uL Normal 150-450 [facility] Comment on above: Performed By: #### C BC, LIPASE, LACTIC, CMP #### [address] RBC (Bld) [#/Vol] 3.48 10*6/uL Low 3.60-5.00 [facility] Comment on above: Performed By: #### C BC, LIPASE, LACTIC, CMP #### [address] WBC (Bld) [#/Vol] 9.3 10*3/uL Normal 4.5-11.0 [facility] Comment on above: Performed By: #### C BC, LIPASE, LACTIC, CMP #### [address] Comprehensive Metabolic Pane lizy 08-09-2021 Albumin [Mass/Vol] 2.4 g/dL Low 3.2-5.5 [facility] Comment on above: Performed By: #### C BC, LIPASE, LACTIC, CMP #### [address] Albumin/Globulin [Mass ratio] 0.9 {ratio} Normal [facility] Comment on above: Performed By: #### C BC, LIPASE, LACTIC, CMP #### [address] ALP [Catalytic activity/Vol] 53 U/L Normal 32-92 [facility] Comment on above: Performed By: #### C BC, LIPASE, LACTIC, CMP #### [place] [address] [place] ALT [Catalytic activity/Vol] 15 U/L Normal 10-60 [facility] Comment on above: Performed By: #### C BC, LIPASE, LACTIC, CMP #### [facility] [address] AST [Catalytic activity/Vol] 20 U/L Normal 10-42 [facility] Comment on above: Performed By: #### C BC, LIPASE, LACTIC, CMP #### [facility] [address] Bilirubin [Mass/Vol] 0.4 mg/dL Normal 0.3-1.2 [facility] Comment on above: Performed By: #### C BC, LIPASE, LACTIC, CMP #### [address] Calcium [Mass/Vol] 8.1 mg/dL Low 8.2-10.2 [facility] Comment on above: Performed By: #### C BC, LIPASE, LACTIC, CMP #### [address] Chloride [Moles/Vol] 102 mmol/L Normal 95-114 [facility] Comment on above: Performed By: #### C BC, LIPASE, LACTIC, CMP #### [address] CO2 [Moles/Vol] 29.7 mmol/L Normal 22.0-30.0 [facility] Comment on above: Performed By: #### C BC, LIPASE, LACTIC, CMP #### [facility] [address] [place] [address] Creatinine [Mass/Vol] 0.57 mg/dL Normal 0.44-1.03 [facility] Comment on above: Performed By: #### C BC, LIPASE, LACTIC, CMP #### [address] Creatinine Clr Calc Pharmacy 73.94 Normal [facility] Comment on above: Result Comment: PERF ORMED BY: [place] [address] PATHOLOGIST [employer]SIDER ROBYN CASAS M.D. Performed By: #### C BC, LIPASE, LACTIC, CMP #### [address] Estimated GFR ( Joey > 60 Normal [facility] Comment on above: Result Comment: GFR estimated reference range: According to KDOQI guidelines, <60 ml/min/1.73m2 is sufficient to diagnose a patient with chronic kidney disease. Performed By: #### C BC, LIPASE, LACTIC, CMP #### [address] Estimated GFR (Non- Am > 60 Normal [facility] Comment on above: Performed By: #### C BC, LIPASE, LACTIC, CMP #### [address] Globulin (S) [Mass/Vol] 2.6 g/dL Normal [facility] Comment on above: Performed By: #### C BC, LIPASE, LACTIC, CMP #### [address] Glucose [Mass/Vol] 104 mg/dL High 70-100 [facility] Comment on above: Result Comment: [place] om Glucose Reference Range is dependent on time and content of last meal. Glucose of more than 200 mg/dL in a nonstressed, ambulatory subject supports the diagnosis of Diabetes Mellitus. ADA recommended reference range Performed By: #### C BC, LIPASE, LACTIC, CMP #### [address] Potassium [Moles/Vol] 3.4 mmol/L Low 3.5-5.1 [facility] Comment on above: Performed By: #### C BC, LIPASE, LACTIC, CMP #### [address] Protein [Mass/Vol] 5.0 g/dL Low 6.1-7.9 [facility] Comment on above: Performed By: #### C BC, LIPASE, LACTIC, CMP #### [address] Sodium [Moles/Vol] 140 mmol/L Normal 136-146 [facility] Comment on above: Performed By: #### C BC, LIPASE, LACTIC, CMP #### [facility] [address] [id number] [place] Urea nitrogen [Mass/Vol] 9 mg/dL Normal 9- [facility] Comment on above: Performed By: #### C BC, LIPASE, LACTIC, CMP #### [facility] [address] [id number] [facility] Gl[facility] Poct Glucometerson 1 10-09-2020 Glucose [Mass/Vol] 108 mg/dL Normal [facility] Comment on above: Result Comment: [place] om Glucose Reference Range is dependent on time and content of last meal. Glucose of more than 200 mg/dL in a nonstressed, ambulatory subject supports the diagnosis of Diabetes Mellitus. PERFORMED BY: [place] [address] PATHOLOGIST [employer] OFFSIDER ROBYN CASAS M.D. Performed By: #### C BC, LIPASE, LACTIC, CMP #### [facility] [address] [id number] [place] Glucose [Mass/Vol] 87 mg/dL Normal [facility] Comment on above: Result Comment: [place] om Glucose Reference Range is dependent on time and content of last meal. Glucose of more than 200 mg/dL in a nonstressed, ambulatory subject supports the diagnosis of Diabetes Mellitus. PERFORMED BY: [place] [address] PATHOLOGIST [employer]ATMENT OFFSIDER ROBYN CASAS M.D. Performed By: #### C BC, LIPASE, LACTIC, CMP #### [facility] [address] [phone] [place] Glucose [Mass/Vol] 102 mg/dL Normal [facility] Comment on above: Result Comment: [place] om Glucose Reference Range is dependent on time and content of last meal. Glucose of more than 200 mg/dL in a nonstressed, ambulatory subject supports the diagnosis of Diabetes Mellitus. PERFORMED BY: [place] [address] PATHOLOGIST [employer]ATMENT OFFSIDER ROBYN CASAS M.D. Performed By: #### C BC, LIPASE, LACTIC, CMP #### [address] Complete Blood Count Auto Di ffon 08-08-2021 Basophils (Bld) [#/Vol] 0.0 10*3/uL Normal 0.0-0.2 [facility] Comment on above: Result Comment: PERF ORMED BY: [place] [address] PATHOLOGIST [employer]ATMENT OFFSIDER ROBYN CASAS M.D. Performed By: #### C BC, LIPASE, LACTIC, CMP #### [address] Basophils/100 WBC (Bld) 0.2 % Normal . [facility] Comment on above: Performed By: #### C BC, LIPASE, LACTIC, CMP #### [address] Eosinophils (Bld) [#/Vol] 0.2 10*3/uL Normal 0.0-0.45 [facility] Comment on above: Performed By: #### C BC, LIPASE, LACTIC, CMP #### [address] Eosinophils/100 WBC (Bld) 2.2 % Normal . [facility] Comment on above: Performed By: #### C BC, LIPASE, LACTIC, CMP #### [address] Erythrocyte distribution width (RBC) [Ratio] 14.0 % Normal 11.9-15.3 [facility] Comment on above: Performed By: #### C BC, LIPASE, LACTIC, CMP #### [address] Hematocrit (Bld) [Volume fraction] 31.5 % Low 34.0-46.4 [facility] Comment on above: Performed By: #### C BC, LIPASE, LACTIC, CMP #### [address] Hemoglobin (Bld) [Mass/Vol] 10.6 g/dL Low 11.8-15.4 [facility] Comment on above: Performed By: #### C BC, LIPASE, LACTIC, CMP #### [address] Lymphocytes (Bld) [#/Vol] 1.1 10*3/uL Normal 1.00-4.8 [facility] Comment on above: Performed By: #### C BC, LIPASE, LACTIC, CMP #### [address] Lymphocytes/100 WBC (Bld) 11.8 % Normal . [facility] Comment on above: Performed By: #### C BC, LIPASE, LACTIC, CMP #### [address] MCH (RBC) [Entitic mass] 31.7 pg Normal 24.7-34.3 [facility] Comment on above: Performed By: #### C BC, LIPASE, LACTIC, CMP #### [address] MCV (RBC) [Entitic vol] 94.3 fL Normal 80-100 [facility] Comment on above: Performed By: #### C BC, LIPASE, LACTIC, CMP #### [address] Mean Corpuscular HGB Conc 33.6 g/dL Normal 32.0-35.0 [facility] Comment on above: Performed By: #### C BC, LIPASE, LACTIC, CMP #### [address] Monocytes (Bld) [#/Vol] 1.1 10*3/uL High 0.0-0.8 [facility] Comment on above: Performed By: #### C BC, LIPASE, LACTIC, CMP #### [address] Monocytes/100 WBC (Bld) 11.6 % Normal . [facility] Comment on above: Performed By: #### C BC, LIPASE, LACTIC, CMP #### [facility] [address] Neutrophils (Bld) [#/Vol] 6.8 10*3/uL Normal 1.8-7.7 [facility] Comment on above: Performed By: #### C BC, LIPASE, LACTIC, CMP #### [address] Neutrophils/100 WBC (Bld) 74.2 % Normal . [facility] Comment on above: Performed By: #### C BC, LIPASE, LACTIC, CMP #### [address] Nucleated RBC/100 WBC (Bld) [Ratio] 0.0 % Normal 0-0.5 [facility] Comment on above: Performed By: #### C BC, LIPASE, LACTIC, CMP #### [address] Platelet mean volume (Bld) [Entitic vol] 7.1 fL Normal 6.3-10.7 [facility] Comment on above: Performed By: #### C BC, LIPASE, LACTIC, CMP #### [address] Platelets (Bld) [#/Vol] 173 10*3/uL Normal 150-450 [facility] Comment on above: Performed By: #### C BC, LIPASE, LACTIC, CMP #### [address] RBC (Bld) [#/Vol] 3.34 10*6/uL Low 3.60-5.00 [facility] Comment on above: Performed By: #### C BC, LIPASE, LACTIC, CMP #### [place] [address] [place] WBC (Bld) [#/Vol] 9.2 10*3/uL Normal 4.5-11.0 [facility] Comment on above: Performed By: #### C BC, LIPASE, LACTIC, CMP #### [address] Comprehensive Metabolic Pane lizy 08-08-2021 Albumin [Mass/Vol] 2.2 g/dL Low 3.2-5.5 [facility] Comment on above: Performed By: #### C BC, LIPASE, LACTIC, CMP #### [facility] [address] Albumin/Globulin [Mass ratio] 0.9 {ratio} Normal [facility] Comment on above: Performed By: #### C BC, LIPASE, LACTIC, CMP #### [facility] [address] ALP [Catalytic activity/Vol] 43 U/L Normal 32-92 [facility] Comment on above: Performed By: #### C BC, LIPASE, LACTIC, CMP #### [address] ALT [Catalytic activity/Vol] 16 U/L Normal 10-60 [facility] Comment on above: Performed By: #### C BC, LIPASE, LACTIC, CMP #### [address] AST [Catalytic activity/Vol] 18 U/L Normal 10-42 [facility] Comment on above: Performed By: #### C BC, LIPASE, LACTIC, CMP #### [address] Bilirubin [Mass/Vol] 0.4 mg/dL Normal 0.3-1.2 [facility] Comment on above: Performed By: #### C BC, LIPASE, LACTIC, CMP #### [address] Calcium [Mass/Vol] 8.1 mg/dL Low 8.2-10.2 [facility] Comment on above: Performed By: #### C BC, LIPASE, LACTIC, CMP #### [address] Chloride [Moles/Vol] 102 mmol/L Normal 95-114 [facility] Comment on above: Performed By: #### C BC, LIPASE, LACTIC, CMP #### [address] CO2 [Moles/Vol] 29.1 mmol/L Normal 22.0-30.0 [facility] Comment on above: Performed By: #### C BC, LIPASE, LACTIC, CMP #### [address] Creatinine [Mass/Vol] 0.51 mg/dL Normal 0.44-1.03 [facility] Comment on above: Performed By: #### C BC, LIPASE, LACTIC, CMP #### [address] Creatinine Clr Calc Pharmacy 72.99 [facility] Comment on above: Performed By: #### C BC, LIPASE, LACTIC, CMP #### [address] Estimated GFR ( Joey > 60 [facility] Comment on above: Result Comment: GFR estimated reference range: According to KDOQI guidelines, <60 ml/min/1.73m2 is sufficient to diagnose a patient with chronic kidney disease. Performed By: #### C BC, LIPASE, LACTIC, CMP #### [address] Estimated GFR (Non- Am > 60 [facility] Comment on above: Performed By: #### C BC, LIPASE, LACTIC, CMP #### [address] Globulin (S) [Mass/Vol] 2.5 g/dL [facility] Comment on above: Performed By: #### C BC, LIPASE, LACTIC, CMP #### [address] Glucose [Mass/Vol] 149 mg/dL High 70-100 [facility] Comment on above: Result Comment: [place] om Glucose Reference Range is dependent on time and content of last meal. Glucose of more than 200 mg/dL in a nonstressed, ambulatory subject supports the diagnosis of Diabetes Mellitus. ADA recommended reference range Performed By: #### C BC, LIPASE, LACTIC, CMP #### [address] Potassium [Moles/Vol] 3.6 mmol/L Normal 3.5-5.1 [facility] Comment on above: Performed By: #### C BC, LIPASE, LACTIC, CMP #### [facility] [address] Protein [Mass/Vol] 4.7 g/dL Low 6.1-7.9 [facility] Comment on above: Performed By: #### C BC, LIPASE, LACTIC, CMP #### [facility] [address] Sodium [Moles/Vol] 140 mmol/L Normal 136-146 [facility] Comment on above: Performed By: #### C BC, LIPASE, LACTIC, CMP #### [address] Urea nitrogen [Mass/Vol] 10 mg/dL Normal 9-23 [facility] Comment on above: Performed By: #### C BC, LIPASE, LACTIC, CMP #### [address] Glucose Poct Glucometerson 1 2020 Glucose [Mass/Vol] 102 mg/dL Normal [facility] Comment on above: Result Comment: [facility] Glucose Reference Range is dependent on time and content of last meal. Glucose of more than 200 mg/dL in a nonstressed, ambulatory subject supports the diagnosis of Diabetes Mellitus. PERFORMED BY: [place] [address] PATHOLOGIST [employer]LL [employer]REATMENT OFFSIDER ROYBN CASAS M.D. Performed By: #### C BC, LIPASE, LACTIC, CMP #### [address] Commemt1 Glu2: Cleaned Meter Normal [facility] Comment on above: Result Comment: PERF ORMED BY: [place] [address] PATHOLOGIST WELL TREATMENT OFFSIDER ROBYN CASAS M.D. Performed By: #### C BC, LIPASE, LACTIC, CMP #### [place] [id number] [place] Glucose [Mass/Vol] 123 mg/dL Normal [facility] Comment on above: Result Comment: [place] om Glucose Reference Range is dependent on time and content of last meal. Glucose of more than 200 mg/dL in a nonstressed, ambulatory subject supports the diagnosis of Diabetes Mellitus. Performed By: #### C BC, LIPASE, LACTIC, CMP #### [address] Commemt1 Glu2: Cleaned Meter [facility] Comment on above: Result Comment: PERF ORMED BY: [place] [address] PATHOLOGIST WELL TREATMENT OFFSIDER ROBYN CASAS M.D. Performed By: #### C BC, LIPASE, LACTIC, CMP #### [address] Glucose [Mass/Vol] 125 mg/dL Normal [facility] Comment on above: Result Comment: [place] om Glucose Reference Range is dependent on time and content of last meal. Glucose of more than 200 mg/dL in a nonstressed, ambulatory subject supports the diagnosis of Diabetes Mellitus. Performed By: #### C BC, LIPASE, LACTIC, CMP #### [address] Commemt1 Glu2: Cleaned Meter [facility] Comment on above: Result Comment: PERF ORMED BY: [place] [address] PATHOLOGIST WELL TREATMENT OFFSIDER ROBYN CASAS M.D. Performed By: #### C BC, LIPASE, LACTIC, CMP #### [address] Glucose [Mass/Vol] 141 mg/dL Normal [facility] Comment on above: Result Comment: [place] om Glucose Reference Range is dependent on time and content of last meal. Glucose of more than 200 mg/dL in a nonstressed, ambulatory subject supports the diagnosis of Diabetes Mellitus. Performed By: #### C BC, LIPASE, LACTIC, CMP #### [place] [id number] [place] Ironon 08-08-2021 Iron [Mass/Vol] 15 ug/dL Low 40-150 [facility] Comment on above: Performed By: #### C BC, LIPASE, LACTIC, CMP #### [address] Magnesiumon 08-08-2021 Magnesium [Mass/Vol] 2.0 mg/dL Normal 1.6-2.6 [facility] Comment on above: Performed By: #### C BC, LIPASE, LACTIC, CMP #### [address] Phosphoruson 08-08-2021 Phosphate [Mass/Vol] 3.2 mg/dL Normal 2.5-4.6 [facility] Comment on above: Performed By: #### C BC, LIPASE, LACTIC, CMP #### [address] Total Iron Binding Capacityo n 08-08-2021 Total Iron Binding Capacity 162 ug/dL Low 255-450 [facility] Comment on above: Performed By: #### C BC, LIPASE, LACTIC, CMP #### [address] Transferrin [Mass/Vol] 116 mg/dL Low 180-380 [facility] Comment on above: Performed By: #### C BC, LIPASE, LACTIC, CMP #### [address] Vit. B12/Folate Profileon Cobalamin (Vitamin B12) [Mass/Vol] 1000 pg/mL High 180-914 [facility] Comment on above: Performed By: #### C BC, LIPASE, LACTIC, CMP #### [address] Folate 16.3 ng/mL Normal >5.9 [facility] Comment on above: Result Comment: [place] te reference range: >5.9 ng/ml The WHO technical consultation on folate and vitamin b12 deficiencies has determined that folate concentrations less than 4 ng/ml are considered deficient. PERFORMED BY: [address] [place] [address] PATHOLOGIST WELL TREATMENT OFFSIDER ROBYN CASAS M.D. Performed By: #### C BC, LIPASE, LACTIC, CMP #### [address] Basic Metabolic Panelon 11 Calcium [Mass/Vol] 7.9 mg/dL Low 8.2-10.2 [facility] Comment on above: Performed By: #### C BC, LIPASE, LACTIC, CMP #### [address] Chloride [Moles/Vol] 105 mmol/L Normal 95-114 [facility] Comment on above: Performed By: #### C BC, LIPASE, LACTIC, CMP #### [address] CO2 [Moles/Vol] 27.9 mmol/L Normal 22.0-30.0 [facility] Comment on above: Performed By: #### C BC, LIPASE, LACTIC, CMP #### [address] Creatinine [Mass/Vol] 0.50 mg/dL Normal 0.44-1.03 [facility] Comment on above: Performed By: #### C BC, LIPASE, LACTIC, CMP #### [address] Creatinine Clr Calc Pharmacy 72.99 [facility] Comment on above: Performed By: #### C BC, LIPASE, LACTIC, CMP #### [address] Estimated GFR ( Joey > 60 [facility] Comment on above: Result Comment: GFR estimated reference range: According to KDOQI guidelines, <60 ml/min/1.73m2 is sufficient to diagnose a patient with chronic kidney disease. Performed By: #### C BC, LIPASE, LACTIC, CMP #### [address] Estimated GFR (Non- Am > 60 [facility] Comment on above: Performed By: #### C BC, LIPASE, LACTIC, CMP #### [facility] [address] Glucose [Mass/Vol] 135 mg/dL High 70-100 [facility] Comment on above: Result Comment: [place] Glucose Reference Range is dependent on time and content of last meal. Glucose of more than 200 mg/dL in a nonstressed, ambulatory subject supports the diagnosis of Diabetes Mellitus. ADA recommended reference range Performed By: #### C BC, LIPASE, LACTIC, CMP #### [facility] [address] Potassium [Moles/Vol] 3.5 mmol/L Normal 3.5-5.1 [facility] Comment on above: Performed By: #### C BC, LIPASE, LACTIC, CMP #### [address] Sodium [Moles/Vol] 140 mmol/L Normal 136-146 [facility] Comment on above: Performed By: #### C BC, LIPASE, LACTIC, CMP #### [place] [address] [place] Urea nitrogen [Mass/Vol] 10 mg/dL Normal 9-23 [facility] Comment on above: Performed By: #### C BC, LIPASE, LACTIC, CMP #### [address] Complete Blood Count Auto Di ffon 08-07-2021 Basophils (Bld) [#/Vol] 0.0 10*3/uL Normal 0.0-0.2 [facility] Comment on above: Result Comment: PERF ORMED BY: [place] [address] PATHOLOGIST WELL TREATMENT OFFSIDER ROBYN CASAS M.D. Performed By: #### C BC, LIPASE, LACTIC, CMP #### [place] [address] [place] Basophils/100 WBC (Bld) 0.4 % Normal . [facility] Comment on above: Performed By: #### C BC, LIPASE, LACTIC, CMP #### [address] Eosinophils (Bld) [#/Vol] 0.1 10*3/uL Normal 0.0-0.45 [facility] Comment on above: Performed By: #### C BC, LIPASE, LACTIC, CMP #### [address] Eosinophils/100 WBC (Bld) 1.4 % Normal . [facility] Comment on above: Performed By: #### C BC, LIPASE, LACTIC, CMP #### [address] Erythrocyte distribution width (RBC) [Ratio] 14.3 % Normal 11.9-15.3 [facility] Comment on above: Performed By: #### C BC, LIPASE, LACTIC, CMP #### [address] Hematocrit (Bld) [Volume fraction] 31.9 % Low 34.0-46.4 [facility] Comment on above: Performed By: #### C BC, LIPASE, LACTIC, CMP #### [address] Hemoglobin (Bld) [Mass/Vol] 10.8 g/dL Low 11.8-15.4 [facility] Comment on above: Performed By: #### C BC, LIPASE, LACTIC, CMP #### [address] Lymphocytes (Bld) [#/Vol] 1.2 10*3/uL Normal 1.00-4.8 [facility] Comment on above: Performed By: #### C BC, LIPASE, LACTIC, CMP #### [address] Lymphocytes/100 WBC (Bld) 11.7 % Normal . [facility] Comment on above: Performed By: #### C BC, LIPASE, LACTIC, CMP #### [address] MCH (RBC) [Entitic mass] 31.7 pg Normal 24.7-34.3 [facility] Comment on above: Performed By: #### C BC, LIPASE, LACTIC, CMP #### [address] MCV (RBC) [Entitic vol] 94.3 fL Normal 80-100 [facility] Comment on above: Performed By: #### C BC, LIPASE, LACTIC, CMP #### [address] Mean Corpuscular HGB Conc 33.7 g/dL Normal 32.0-35.0 [facility] Comment on above: Performed By: #### C BC, LIPASE, LACTIC, CMP #### [address] Monocytes (Bld) [#/Vol] 1.3 10*3/uL High 0.0-0.8 [facility] Comment on above: Performed By: #### C BC, LIPASE, LACTIC, CMP #### [address] Monocytes/100 WBC (Bld) 12.8 % Normal . [facility] Comment on above: Performed By: #### C BC, LIPASE, LACTIC, CMP #### [address] Neutrophils (Bld) [#/Vol] 7.8 10*3/uL High 1.8-7.7 [facility] Comment on above: Performed By: #### C BC, LIPASE, LACTIC, CMP #### [address] Neutrophils/100 WBC (Bld) 73.7 % Normal . [facility] Comment on above: Performed By: #### C BC, LIPASE, LACTIC, CMP #### [address] Nucleated RBC/100 WBC (Bld) [Ratio] 0.0 % Normal 0-0.5 [facility] Comment on above: Performed By: #### C BC, LIPASE, LACTIC, CMP #### [address] Platelet mean volume (Bld) [Entitic vol] 7.1 fL Normal 6.3-10.7 [facility] Comment on above: Performed By: #### C BC, LIPASE, LACTIC, CMP #### [facility] [address] Platelets (Bld) [#/Vol] 177 10*3/uL Normal 150-450 [facility] Comment on above: Performed By: #### C BC, LIPASE, LACTIC, CMP #### [address] RBC (Bld) [#/Vol] 3.39 10*6/uL Low 3.60-5.00 [facility] Comment on above: Performed By: #### C BC, LIPASE, LACTIC, CMP #### [address] WBC (Bld) [#/Vol] 10.5 10*3/uL Normal 4.5-11.0 [facility] Comment on above: Performed By: #### C BC, LIPASE, LACTIC, CMP #### [address] ECH echo transthoracicon ECH echo transthoracic [facility] [place] [address] [place] [address] Echocardiogram Signed Patient: Areli Hawkins MR#: [id number] : 1945 Acct:[id number] Age/Sex: 75 / F ADM Date: 08/01/21 Loc: Room: [address] [place] [address] Type: ADM IN Attending Dr: Tony Klein [...] 1430 Dictated By: Yaritza Canchola DO 08/07/21 1155 Signed By: 08/07/21 1427 [facility] Free T4 (Free Thyroxine)on 10-07-2020 Free T4 [Mass/Vol] 1.02 ng/dL Normal 0.61-1.12 [facility] Comment on above: Performed By: #### C BC, LIPASE, LACTIC, CMP #### [facility] 1111 [place] [id number] [facility] Glucose Poct Glucometerson 10-07-2020 Commemt1 Glu2: Cleaned Meter Normal [facility] Comment on above: Result Comment: PERF ORMED BY: [place] [address] PATHOLOGIST WELL TREATMENT OFFSIDER ROBYN CASAS M.D. Performed By: #### C BC, LIPASE, LACTIC, CMP #### [address] Glucose [Mass/Vol] 104 mg/dL Normal [facility] Comment on above: Result Comment: [place] om Glucose Reference Range is dependent on time and content of last meal. Glucose of more than 200 mg/dL in a nonstressed, ambulatory subject supports the diagnosis of Diabetes Mellitus. Performed By: #### C BC, LIPASE, LACTIC, CMP #### [place] [address] [place] Glucose [Mass/Vol] 125 mg/dL Normal [facility] Comment on above: Result Comment: [place] om Glucose Reference Range is dependent on time and content of last meal. Glucose of more than 200 mg/dL in a nonstressed, ambulatory subject supports the diagnosis of Diabetes Mellitus. Performed By: #### C BC, LIPASE, LACTIC, CMP #### [address] Commemt1 Glu2: Cleaned Meter Normal [facility] Comment on above: Result Comment: PERF ORMED BY: [place] [address] PATHOLOGIST WELL TREATMENT OFFSIDER ROBYN CASAS M.D. Performed By: #### C BC, LIPASE, LACTIC, CMP #### [place] [address] [place] Glucose [Mass/Vol] 109 mg/dL Normal [facility] Comment on above: Result Comment: [place] om Glucose Reference Range is dependent on time and content of last meal. Glucose of more than 200 mg/dL in a nonstressed, ambulatory subject supports the diagnosis of Diabetes Mellitus. Performed By: #### C BC, LIPASE, LACTIC, CMP #### [address] Commemt1 Glu2: Cleaned Meter Normal [facility] Comment on above: Result Comment: PERF ORMED BY: [place] [address] PATHOLOGIST WELL TREATMENT OFFSIDER ROBYN CASAS M.D. Performed By: #### C BC, LIPASE, LACTIC, CMP #### [address] Glucose [Mass/Vol] 118 mg/dL Normal [facility] Comment on above: Result Comment: [place] om Glucose Reference Range is dependent on time and content of last meal. Glucose of more than 200 mg/dL in a nonstressed, ambulatory subject supports the diagnosis of Diabetes Mellitus. Performed By: #### C BC, LIPASE, LACTIC, CMP #### [address] Commemt1 Glu2: Cleaned Meter [facility] Comment on above: Result Comment: PERF ORMED BY: [place] [address] PATHOLOGIST WELL TREATMENT OFFSIDER ROBYN CASAS M.D. Performed By: #### C BC, LIPASE, LACTIC, CMP #### [address] Glucose [Mass/Vol] 117 mg/dL Normal [facility] Comment on above: Result Comment: [place] om Glucose Reference Range is dependent on time and content of last meal. Glucose of more than 200 mg/dL in a nonstressed, ambulatory subject supports the diagnosis of Diabetes Mellitus. Performed By: #### C BC, LIPASE, LACTIC, CMP #### [address] Magnesiumon 08-07-2021 Magnesium [Mass/Vol] 2.0 mg/dL Normal 1.6-2.6 [facility] Comment on above: Performed By: #### C BC, LIPASE, LACTIC, CMP #### [address] Phosphoruson 08-07-2021 Phosphate [Mass/Vol] 2.9 mg/dL Normal 2.5-4.6 [facility] Comment on above: Performed By: #### C BC, LIPASE, LACTIC, CMP #### [address] Thyroid Stimulating Hormoneo n 08-07-2021 TSH Qn 1.34 m[IU]/L Normal 0.45-5.33 [facility] Comment on above: Result Comment: PERF ORMED BY: [place] [address] PATHOLOGIST WELL TREATMENT OFFSIDER ROBYN CASAS M.D. Performed By: #### C BC, LIPASE, LACTIC, CMP #### [address] Basic Metabolic Panelon 07-24 Calcium [Mass/Vol] 8.2 mg/dL Normal 8.2-10.2 [facility] Comment on above: Performed By: #### C BC, LIPASE, LACTIC, CMP #### [address] Chloride [Moles/Vol] 110 mmol/L Normal 95-114 [facility] Comment on above: Performed By: #### C BC, LIPASE, LACTIC, CMP #### [address] CO2 [Moles/Vol] 25.8 mmol/L Normal 22.0-30.0 [facility] Comment on above: Performed By: #### C BC, LIPASE, LACTIC, CMP #### [address] Creatinine [Mass/Vol] 0.55 mg/dL Normal 0.44-1.03 [facility] Comment on above: Performed By: #### C BC, LIPASE, LACTIC, CMP #### [facility] [address] [place] [address] [place] Creatinine Clr Calc Pharmacy 72.55 [facility] Comment on above: Performed By: #### C BC, LIPASE, LACTIC, CMP #### [facility] [address] Estimated GFR ( Joey > 60 [facility] Comment on above: Result Comment: GFR estimated reference range: According to KDOQI guidelines, <60 ml/min/1.73m2 is sufficient to diagnose a patient with chronic kidney disease. Performed By: #### C BC, LIPASE, LACTIC, CMP #### [address] Estimated GFR (Non- Am > 60 [facility] Comment on above: Performed By: #### C BC, LIPASE, LACTIC, CMP #### [address] Glucose [Mass/Vol] 170 mg/dL High 70-100 [facility] Comment on above: Result Comment: [place] Glucose Reference Range is dependent on time and content of last meal. Glucose of more than 200 mg/dL in a nonstressed, ambulatory subject supports the diagnosis of Diabetes Mellitus. ADA recommended reference range Performed By: #### C BC, LIPASE, LACTIC, CMP #### [address] Potassium [Moles/Vol] 3.3 mmol/L Low 3.5-5.1 [facility] Comment on above: Performed By: #### C BC, LIPASE, LACTIC, CMP #### [place] [address] [place] Sodium [Moles/Vol] 144 mmol/L Normal 136-146 [facility] Comment on above: Performed By: #### C BC, LIPASE, LACTIC, CMP #### [address] Urea nitrogen [Mass/Vol] 7 mg/dL Low 9-23 [facility] Comment on above: Performed By: #### C BC, LIPASE, LACTIC, CMP #### [address] [place] [address] [place] ECG 12 lead ECGon 08-06-2021 ECG 12 lead ECG [facility] [place] [address] [place] [address] Electrocardiograph Report Signed Patient: Areli Hawkins MR#: [id number] : 1945 Acct:[id number] Age/Sex: 75 / F ADM Date: 08/01/21 Loc: Room: [address] [place] [address] Type: ADM IN Attending Dr: Tony Klein [...] By Alvin Pardo DO 08/07 1313 Normal [facility] Glucose Poct Glucometerson 1 10-06-2020 Glucose [Mass/Vol] 139 mg/dL Normal [facility] Comment on above: Result Comment: [facility] Glucose Reference Range is dependent on time and content of last meal. Glucose of more than 200 mg/dL in a nonstressed, ambulatory subject supports the diagnosis of Diabetes Mellitus. PERFORMED BY: [place] [address] PATHOLOGIST WELL TREATMENT OFFSIDER ROBYN CASAS M.D. Performed By: #### C BC, LIPASE, LACTIC, CMP #### [facility] [address] [place], [place] [id number] [facility] Commemt1 Glu2: Cleaned Meter Normal [facility] Comment on above: Result Comment: PERF ORMED BY: [place] [address] PATHOLOGIST WELL TREATMENT OFFSIDER ROBYN CASAS M.D. Performed By: #### C BC, LIPASE, LACTIC, CMP #### [address] Glucose [Mass/Vol] 180 mg/dL Normal [facility] Comment on above: Result Comment: [place] om Glucose Reference Range is dependent on time and content of last meal. Glucose of more than 200 mg/dL in a nonstressed, ambulatory subject supports the diagnosis of Diabetes Mellitus. Performed By: #### C BC, LIPASE, LACTIC, CMP #### [address] Commemt1 Glu2: Cleaned Meter Normal [facility] Comment on above: Result Comment: PERF ORMED BY: [place] [address] PATHOLOGIST WELL TREATMENT OFFSIDER ROBYN CASAS M.D. Performed By: #### C BC, LIPASE, LACTIC, CMP #### [address] Glucose [Mass/Vol] 145 mg/dL Normal [facility] Comment on above: Result Comment: [place] om Glucose Reference Range is dependent on time and content of last meal. Glucose of more than 200 mg/dL in a nonstressed, ambulatory subject supports the diagnosis of Diabetes Mellitus. Performed By: #### C BC, LIPASE, LACTIC, CMP #### [address] Glucose [Mass/Vol] 173 mg/dL Normal [facility] Comment on above: Result Comment: [place] om Glucose Reference Range is dependent on time and content of last meal. Glucose of more than 200 mg/dL in a nonstressed, ambulatory subject supports the diagnosis of Diabetes Mellitus. PERFORMED BY: [place] [address] PATHOLOGIST WELL TREATMENT OFFSIDER ROBYN CASAS M.D. Performed By: #### C BC, LIPASE, LACTIC, CMP #### [address] [place] [address] [place] Hepatic Panelon 08-06-2021 Albumin [Mass/Vol] 2.3 g/dL Low 3.2-5.5 [facility] [facility] Comment on above: Performed By: #### C BC, LIPASE, LACTIC, CMP #### [facility] [address] Albumin/Globulin [Mass ratio] 1.0 {ratio} Normal [facility] Comment on above: Performed By: #### C BC, LIPASE, LACTIC, CMP #### [address] ALP [Catalytic activity/Vol] 38 U/L Normal 32-92 [facility] Comment on above: Performed By: #### C BC, LIPASE, LACTIC, CMP #### [address] ALT [Catalytic activity/Vol] 21 U/L Normal 10-60 [facility] Comment on above: Performed By: #### C BC, LIPASE, LACTIC, CMP #### [address] AST [Catalytic activity/Vol] 21 U/L Normal 10-42 [facility] Comment on above: Performed By: #### C BC, LIPASE, LACTIC, CMP #### [address] Bilirubin [Mass/Vol] 0.4 mg/dL Normal 0.3-1.2 [facility] Comment on above: Performed By: #### C BC, LIPASE, LACTIC, CMP #### [address] Bilirubin,Indirect 0.3 mg/dL Normal [facility] Comment on above: Performed By: #### C BC, LIPASE, LACTIC, CMP #### [address] Bilirubin.indirect [Mass/Vol] 0.1 mg/dL Normal 0.0-0.4 [facility] Comment on above: Performed By: #### C BC, LIPASE, LACTIC, CMP #### [facility] [address] Globulin (S) [Mass/Vol] 2.4 g/dL Normal [facility] Comment on above: Performed By: #### C BC, LIPASE, LACTIC, CMP #### [facility] [address] Protein [Mass/Vol] 4.7 g/dL Low 6.1-7.9 [facility] Comment on above: Performed By: #### C BC, LIPASE, LACTIC, CMP #### [facility] [address] Magnesiumon 08-06-2021 Magnesium [Mass/Vol] 2.1 mg/dL Normal 1.6-2.6 [facility] Comment on above: Result Comment: PERF ORMED BY: [place] [address] PATHOLOGIST [employer]ATMENT OFFSIDER ROBYN CASAS M.D. Performed By: #### C BC, LIPASE, LACTIC, CMP #### [facility] [address] [place] [address] Phosphoruson 08-06-2021 Phosphate [Mass/Vol] 1.8 mg/dL Low 2.5-4.6 [facility] Comment on above: Performed By: #### C BC, LIPASE, LACTIC, CMP #### [address] Scan and CBCon 08-06-2021 Additional Comments Normal [facility] Comment on above: Result Comment: Abso lute monocytosis is commonly reactive in nature. However, if unexplained, recommend follow-up CBC in 3 months to evaluate for persistence. PERFORMED BY: [place] [address] PATHOLOGIST WELL TREATMENT OFFSIDER ROBYN CASAS M.D. Performed By: #### C BC, LIPASE, LACTIC, CMP #### [address] Basophils (Bld) [#/Vol] 0.0 10*3/uL Normal 0.0-0.2 [facility] Comment on above: Performed By: #### C BC, LIPASE, LACTIC, CMP #### [address] Basophils/100 WBC (Bld) 0.3 % Normal . [facility] Comment on above: Performed By: #### C BC, LIPASE, LACTIC, CMP #### [address] Eosinophils (Bld) [#/Vol] 0.1 10*3/uL Normal 0.0-0.45 [facility] Comment on above: Performed By: #### C BC, LIPASE, LACTIC, CMP #### [address] Eosinophils/100 WBC (Bld) 0.6 % Normal . [facility] Comment on above: Performed By: #### C BC, LIPASE, LACTIC, CMP #### [address] Erythrocyte distribution width (RBC) [Ratio] 14.2 % Normal 11.9-15.3 [facility] Comment on above: Performed By: #### C BC, LIPASE, LACTIC, CMP #### [address] Hematocrit (Bld) [Volume fraction] 32.5 % Low 34.0-46.4 [facility] Comment on above: Performed By: #### C BC, LIPASE, LACTIC, CMP #### [address] Hemoglobin (Bld) [Mass/Vol] 10.9 g/dL Low 11.8-15.4 [facility] Comment on above: Performed By: #### C BC, LIPASE, LACTIC, CMP #### [address] Lymphocytes (Bld) [#/Vol] 1.3 10*3/uL Normal 1.00-4.8 [facility] Comment on above: Performed By: #### C BC, LIPASE, LACTIC, CMP #### [address] Lymphocytes/100 WBC (Bld) 12.8 % Normal . [facility] Comment on above: Performed By: #### C BC, LIPASE, LACTIC, CMP #### [address] MCH (RBC) [Entitic mass] 31.6 pg Normal 24.7-34.3 [facility] Comment on above: Performed By: #### C BC, LIPASE, LACTIC, CMP #### [address] MCV (RBC) [Entitic vol] 94.5 fL Normal 80-100 [facility] Comment on above: Performed By: #### C BC, LIPASE, LACTIC, CMP #### [address] Mean Corpuscular HGB Conc 33.5 g/dL Normal 32.0-35.0 [facility] Comment on above: Performed By: #### C BC, LIPASE, LACTIC, CMP #### [address] Monocytes (Bld) [#/Vol] 1.6 10*3/uL High 0.0-0.8 [facility] Comment on above: Performed By: #### C BC, LIPASE, LACTIC, CMP #### [address] Monocytes/100 WBC (Bld) 16.0 % Normal . [facility] Comment on above: Performed By: #### C BC, LIPASE, LACTIC, CMP #### [address] Neutrophils (Bld) [#/Vol] 6.9 10*3/uL Normal 1.8-7.7 [facility] Comment on above: Performed By: #### C BC, LIPASE, LACTIC, CMP #### [address] Neutrophils/100 WBC (Bld) 70.3 % Normal . [facility] Comment on above: Performed By: #### C BC, LIPASE, LACTIC, CMP #### [address] [place] [address] [place] Nucleated RBC/100 WBC (Bld) [Ratio] 0.1 % Normal 0-0.5 [facility] Comment on above: Performed By: #### C BC, LIPASE, LACTIC, CMP #### [facility] [address] Platelet Estimate Normal Normal Normal [facility] Comment on above: Performed By: #### C BC, LIPASE, LACTIC, CMP #### [facility] [address] Platelet mean volume (Bld) [Entitic vol] 7.3 fL Normal 6.3-10.7 [facility] Comment on above: Performed By: #### C BC, LIPASE, LACTIC, CMP #### [address] Platelet Morphology Normal Normal Normal [facility] Comment on above: Performed By: #### C BC, LIPASE, LACTIC, CMP #### [address] Platelets (Bld) [#/Vol] 183 10*3/uL Normal 150-450 [facility] Comment on above: Performed By: #### C BC, LIPASE, LACTIC, CMP #### [address] RBC (Bld) [#/Vol] 3.44 10*6/uL Low 3.60-5.00 [facility] Comment on above: Performed By: #### C BC, LIPASE, LACTIC, CMP #### [address] RBC morphology finding Nom (Bld) Normal Normal [facility] Comment on above: Performed By: #### C BC, LIPASE, LACTIC, CMP #### [address] WBC (Bld) [#/Vol] 9.9 10*3/uL Normal 4.5-11.0 [facility] Comment on above: Performed By: #### C BC, LIPASE, LACTIC, CMP #### [facility] [address] [place] [address] Basic Metabolic Panelon 11- Calcium [Mass/Vol] 8.0 mg/dL Low 8.2-10.2 [facility] Comment on above: Order Comment: Name Collection Type:: Clean-Voided Midstream Performed By: #### U A #### [address] Chloride [Moles/Vol] 112 mmol/L Normal 95-114 [facility] Comment on above: Order Comment: Name Collection Type:: Clean-Voided Midstream Performed By: #### U A #### [address] CO2 [Moles/Vol] 20.1 mmol/L Low 22.0-30.0 [facility] Comment on above: Order Comment: Name Collection Type:: Clean-Voided Midstream Performed By: #### U A #### [address] Creatinine [Mass/Vol] 0.75 mg/dL Normal 0.44-1.03 [facility] Comment on above: Order Comment: Name Collection Type:: Clean-Voided Midstream Performed By: #### U A #### [address] Creatinine Clr Calc Pharmacy 71.76 [facility] Comment on above: Order Comment: Name Collection Type:: Clean-Voided Midstream Performed By: #### U A #### [address] Estimated GFR ( Joey > 60 [facility] Comment on above: Order Comment: Name Collection Type:: Clean-Voided Midstream Result Comment: GFR estimated reference range: According to KDOQI guidelines, <60 ml/min/1.73m2 is sufficient to diagnose a patient with chronic kidney disease. Performed By: #### U A #### [address] Estimated GFR (Non- Am > 60 [facility] Comment on above: Order Comment: Name Collection Type:: Clean-Voided Midstream Performed By: #### U A #### [address] Glucose [Mass/Vol] 114 mg/dL High 70-100 [facility] Comment on above: Order Comment: Name Collection Type:: Clean-Voided Midstream Result Comment: [place] Glucose Reference Range is dependent on time and content of last meal. Glucose of more than 200 mg/dL in a nonstressed, ambulatory subject supports the diagnosis of Diabetes Mellitus. ADA recommended reference range Performed By: #### U A #### [address] Potassium [Moles/Vol] 3.4 mmol/L Low 3.5-5.1 [facility] Comment on above: Order Comment: Name Collection Type:: Clean-Voided Midstream Performed By: #### U A #### [address] Sodium [Moles/Vol] 143 mmol/L Normal 136-146 [facility] Comment on above: Order Comment: Name Collection Type:: Clean-Voided Midstream Performed By: #### U A #### [address] Urea nitrogen [Mass/Vol] 5 mg/dL Low 9-23 [facility] Comment on above: Order Comment: Name Collection Type:: Clean-Voided Midstream Performed By: #### U A #### [address] Complete Blood Count Auto Di ffon 08-05-2021 Basophils (Bld) [#/Vol] 0.0 10*3/uL Normal 0.0-0.2 [facility] Comment on above: Result Comment: PERF ORMED BY: [place] [address] PATHOLOGIST [employer]ATMENT OFFSIDER ROBYN CASAS M.D. Performed By: #### U A #### [address] Basophils/100 WBC (Bld) 0.0 % Normal . [facility] Comment on above: Performed By: #### U A #### [address] Eosinophils (Bld) [#/Vol] 0.0 10*3/uL Normal 0.0-0.45 [facility] Comment on above: Performed By: #### U A #### [address] Eosinophils/100 WBC (Bld) 0.0 % Normal . [facility] Comment on above: Performed By: #### U A #### [address] Erythrocyte distribution width (RBC) [Ratio] 14.3 % Normal 11.9-15.3 [facility] Comment on above: Performed By: #### U A #### [address] Hematocrit (Bld) [Volume fraction] 37.1 % Normal 34.0-46.4 [facility] Comment on above: Performed By: #### U A #### [address] Hemoglobin (Bld) [Mass/Vol] 12.2 g/dL Normal 11.8-15.4 [facility] Comment on above: Performed By: #### U A #### [address] Lymphocytes (Bld) [#/Vol] 0.5 10*3/uL Low 1.00-4.8 [facility] Comment on above: Performed By: #### U A #### [address] Lymphocytes/100 WBC (Bld) 5.0 % Normal . [facility] Comment on above: Performed By: #### U A #### [address] MCH (RBC) [Entitic mass] 31.5 pg Normal 24.7-34.3 [facility] Comment on above: Performed By: #### U A #### [address] MCV (RBC) [Entitic vol] 96.1 fL Normal 80-100 [facility] Comment on above: Performed By: #### U A #### [facility] [address] Mean Corpuscular HGB Conc 32.8 g/dL Normal 32.0-35.0 [facility] Comment on above: Performed By: #### U A #### [address] Monocytes (Bld) [#/Vol] 1.4 10*3/uL High 0.0-0.8 [facility] Comment on above: Performed By: #### U A #### [address] Monocytes/100 WBC (Bld) 13.9 % Normal . [facility] Comment on above: Performed By: #### U A #### [address] Neutrophils (Bld) [#/Vol] 8.4 10*3/uL High 1.8-7.7 [facility] Comment on above: Performed By: #### U A #### [address] Neutrophils/100 WBC (Bld) 81.1 % Normal . [facility] Comment on above: Performed By: #### U A #### [address] Nucleated RBC/100 WBC (Bld) [Ratio] 0.0 % Normal 0-0.5 [facility] Comment on above: Performed By: #### U A #### [address] Platelet mean volume (Bld) [Entitic vol] 7.6 fL Normal 6.3-10.7 [facility] Comment on above: Performed By: #### U A #### [address] Platelets (Bld) [#/Vol] 182 10*3/uL Normal 150-450 [facility] Comment on above: Performed By: #### U A #### [address] RBC (Bld) [#/Vol] 3.86 10*6/uL Normal 3.60-5.00 [facility] Comment on above: Performed By: #### U A #### [address] WBC (Bld) [#/Vol] 10.4 10*3/uL Normal 4.5-11.0 [facility] Comment on above: Performed By: #### U A #### [address] Glucose Poct Glucometerson 1 10-05-2020 Commemt1 Glu2: Cleaned Meter [facility] Comment on above: Result Comment: PERF ORMED BY: [place] [address] PATHOLOGIST WE[employer]ATMENT OFFSIDER ROBYN CASAS M.D. Performed By: #### U A #### [address] Glucose [Mass/Vol] 97 mg/dL Normal [facility] Comment on above: Result Comment: [place] Glucose Reference Range is dependent on time and content of last meal. Glucose of more than 200 mg/dL in a nonstressed, ambulatory subject supports the diagnosis of Diabetes Mellitus. Performed By: #### U A #### [address] Commemt1 Glu2: Cleaned Meter Normal [facility] Comment on above: Result Comment: PERF ORMED BY: [place] [address] PATHOLOGIST WELL TREATMENT OFFSIDER ROBYN CASAS M.D. Performed By: #### U A #### [address] Glucose [Mass/Vol] 82 mg/dL Normal [facility] Comment on above: Result Comment: [place] om Glucose Reference Range is dependent on time and content of last meal. Glucose of more than 200 mg/dL in a nonstressed, ambulatory subject supports the diagnosis of Diabetes Mellitus. Performed By: #### U A #### [address] Glucose [Mass/Vol] 101 mg/dL Normal [facility] Comment on above: Result Comment: [place] om Glucose Reference Range is dependent on time and content of last meal. Glucose of more than 200 mg/dL in a nonstressed, ambulatory subject supports the diagnosis of Diabetes Mellitus. PERFORMED BY: [place] [address] PATHOLOGIST WELL TREATMENT OFFSIDER ROBYN CASAS M.D. Performed By: #### U A #### [address] Prealbuminon 08-05-2021 Prealbumin [Mass/Vol] 7.8 mg/dL Low 18.0-38.0 [facility] Comment on above: Order Comment: Name Collection Type:: Clean-Voided Midstream Result Comment: PERF ORMED BY: [place] [address] PATHOLOGIST WELL TREATMENT OFFSIDER ROBYN CASAS M.D. Performed By: #### U A #### [address] Basic Metabolic Panelon 07-24 Calcium [Mass/Vol] 8.8 mg/dL Normal 8.2-10.2 [facility] Comment on above: Performed By: #### U A #### [place] [address] [place] Chloride [Moles/Vol] 112 mmol/L Normal 95-114 [facility] Comment on above: Performed By: #### U A #### [address] CO2 [Moles/Vol] 20.1 mmol/L Low 22.0-30.0 [facility] Comment on above: Performed By: #### U A #### [address] Creatinine [Mass/Vol] 0.76 mg/dL Normal 0.44-1.03 [facility] Comment on above: Performed By: #### U A #### [place] [address] [place] Creatinine Clr Calc Pharmacy 71.76 Normal [facility] Comment on above: Result Comment: PERF ORMED BY: [place] [address] PATHOLOGIST WELL TREATMENT OFFSIDER ROBYN CASAS M.D. Performed By: #### U A #### [address] Estimated GFR ( Joey > 60 Normal [facility] Comment on above: Result Comment: GFR estimated reference range: According to KDOQI guidelines, <60 ml/min/1.73m2 is sufficient to diagnose a patient with chronic kidney disease. Performed By: #### U A #### [address] Estimated GFR (Non- Am > 60 Normal [facility] Comment on above: Performed By: #### U A #### [address] Glucose [Mass/Vol] 81 mg/dL Normal 70-100 [facility] Comment on above: Result Comment: [place] Glucose Reference Range is dependent on time and content of last meal. Glucose of more than 200 mg/dL in a nonstressed, ambulatory subject supports the diagnosis of Diabetes Mellitus. ADA recommended reference range Performed By: #### U A #### [address] Potassium [Moles/Vol] 3.2 mmol/L Low 3.5-5.1 [facility] Comment on above: Performed By: #### U A #### [address] Sodium [Moles/Vol] 146 mmol/L Normal 136-146 [facility] Comment on above: Performed By: #### U A #### [address] Urea nitrogen [Mass/Vol] 7 mg/dL Low 06-15 [facility] Comment on above: Performed By: #### U A #### [address] Complete Blood Count Auto Di ffon 08-04-2021 Basophils (Bld) [#/Vol] 0.0 10*3/uL Normal 0.0-0.2 [facility] Comment on above: Result Comment: PERF ORMED BY: [place] [address] PATHOLOGIST WELL TREATMENT OFFSIDER ROBYN CASAS M.D. Performed By: #### U A #### [address] Basophils/100 WBC (Bld) 0.2 % Normal . [facility] Comment on above: Performed By: #### U A #### [address] Eosinophils (Bld) [#/Vol] 0.0 10*3/uL Normal 0.0-0.45 [facility] Comment on above: Performed By: #### U A #### [address] Eosinophils/100 WBC (Bld) 0.5 % Normal . [facility] Comment on above: Performed By: #### U A #### [address] Erythrocyte distribution width (RBC) [Ratio] 14.3 % Normal 11.9-15.3 [facility] Comment on above: Performed By: #### U A #### [address] Hematocrit (Bld) [Volume fraction] 40.2 % Normal 34.0-46.4 [facility] Comment on above: Performed By: #### U A #### [address] Hemoglobin (Bld) [Mass/Vol] 13.1 g/dL Normal 11.8-15.4 [facility] Comment on above: Performed By: #### U A #### [address] Lymphocytes (Bld) [#/Vol] 0.8 10*3/uL Low 1.00-4.8 [facility] Comment on above: Performed By: #### U A #### [address] Lymphocytes/100 WBC (Bld) 13.1 % Normal . [facility] Comment on above: Performed By: #### U A #### [address] MCH (RBC) [Entitic mass] 31.5 pg Normal 24.7-34.3 [facility] Comment on above: Performed By: #### U A #### [address] MCV (RBC) [Entitic vol] 96.6 fL Normal 80-100 [facility] Comment on above: Performed By: #### U A #### [address] Mean Corpuscular HGB Conc 32.6 g/dL Normal 32.0-35.0 [facility] Comment on above: Performed By: #### U A #### [address] Monocytes (Bld) [#/Vol] 1.0 10*3/uL High 0.0-0.8 [facility] Comment on above: Performed By: #### U A #### [address] Monocytes/100 WBC (Bld) 16.4 % Normal . [facility] Comment on above: Performed By: #### U A #### [address] Neutrophils (Bld) [#/Vol] 4.2 10*3/uL Normal 1.8-7.7 [facility] Comment on above: Performed By: #### U A #### [facility] [address] [place] [address] [place] Neutrophils/100 WBC (Bld) 69.8 % Normal . [facility] Comment on above: Performed By: #### U A #### [facility] [address] Nucleated RBC/100 WBC (Bld) [Ratio] 0.0 % Normal 0-0.5 [facility] Comment on above: Performed By: #### U A #### [facility] [address] [place] [address] Platelet mean volume (Bld) [Entitic vol] 8.1 fL Normal 6.3-10.7 [facility] Comment on above: Performed By: #### U A #### [facility] [address] [place] [address] Platelets (Bld) [#/Vol] 196 10*3/uL Normal 150-450 [facility] Comment on above: Performed By: #### U A #### [place] [address] [place] RBC (Bld) [#/Vol] 4.16 10*6/uL Normal 3.60-5.00 [facility] Comment on above: Performed By: #### U A #### [place] [address] [place] WBC (Bld) [#/Vol] 6.0 10*3/uL Normal 4.5-11.0 [facility] Comment on above: Performed By: #### U A #### [facility] [address] [place] [address] [place] XR KUBon 08-04-2021 XR KUB [facility] [place] [address] [place] [address] XRay Report Signed Patient: Areli Hawkins MR#: [id number] : 1945 Acct:[id number] Age/Sex: 75 / F ADM Date: 08/01/21 Loc: Room: [address] [place] [address] Type: ADM IN Attending Dr: Indio Puga [...] Allan Salinas M.D.08/04/2021 8:32 AM Dictation Location: [place] [address] Transcribed By: [facility] 08/04/21 0832 Dictated By: Allan Salinas DO 08/04/21 0829 Signed By: 08/04/21 0832 [facility] XR chest 1V portableon 08-04 XR chest 1V portable [facility] [place] [address] XRay Report Signed Patient: Areli Hawkins MR#: [id number] : 1945 Acct:[id number] Age/Sex: 75 / F ADM Date: 08/01/21 Loc: Room: 5Q0631-7 Type: ADM IN Attending Dr: Indio Puga [...] Lucas Jr., M.D.08/04/2021 6:52 PM Dictation Location: [place] [address] Transcribed By: [facility] 08/04/211851 Dictated By: Kvng Lucas Jr, MD 08/04/211849 Signed By: 08/04/211851 [facility] Basic Metabolic Panelon 07-24 Calcium [Mass/Vol] 8.7 mg/dL Normal 8.2-10.2 [facility] Comment on above: Performed By: #### B MP, CBC ####[place] [address] [place] [id number] [facility] Chloride [Moles/Vol] 109 mmol/L Normal 95-114 [facility] Comment on above: Performed By: #### B MP, CBC ####[place] [address] [place] [id number] [facility] CO2 [Moles/Vol] 20.3 mmol/L Low 22.0-30.0 [facility] Comment on above: Performed By: #### B MP, CBC ####[place] [address] [place] [id number] [facility] Creatinine [Mass/Vol] 0.78 mg/dL Normal 0.44-1.03 [facility] Comment on above: Performed By: #### B MP, CBC ####[place] [address] [place] [id number] [place] Creatinine Clr Calc Pharmacy 71.76 [facility] Comment on above: Result Comment: PERF ORMED BY: [facility] [address] [place] [address] PATHOLOGIST WELL TREATMENT OFFSIDER ROBYN CASAS M.D. Performed By: #### B MP, CBC ####[place] [address] [place] [id number] [place] Estimated GFR ( Joey > 60 [facility] Comment on above: Result Comment: GFR estimated reference range: According to KDOQI guidelines, <60 ml/min/1.73m2 is sufficient to diagnose a patient with chronic kidney disease. Performed By: #### B MP, CBC ####[place] [address] [place] [id number] [facility] Estimated GFR (Non- Am > 60 Normal [facility] Comment on above: Performed By: #### B MP, CBC ####[place] [address] [place] [phone] [facility] Glucose [Mass/Vol] 101 mg/dL High 70-100 [facility] Comment on above: Result Comment: [place] Glucose Reference Range is dependent on time and content of last meal. Glucose of more than 200 mg/dL in a nonstressed, ambulatory subject supports the diagnosis of Diabetes Mellitus. ADA recommended reference range Performed By: #### B MP, CBC ####[place] [address] Potassium [Moles/Vol] 3.8 mmol/L Normal 3.5-5.1 [facility] Comment on above: Performed By: #### B MP, CBC ####[address] Sodium [Moles/Vol] 143 mmol/L Normal 136-146 [facility] Comment on above: Performed By: #### B MP, CBC ####[address] Urea nitrogen [Mass/Vol] 6 mg/dL Low 9-23 [facility] Comment on above: Performed By: #### B MP, CBC ####[place] [id number] [facility] Complete Blood Count Auto Di ffon 08-03-2021 Basophils (Bld) [#/Vol] 0.0 10*3/uL Normal 0.0-0.2 [facility] Comment on above: Result Comment: PERF ORMED BY: [facility] [address] [place] [address] PATHOLOGIST WELL TREATMENT OFFSIDER ROBYN CASAS M.D. Performed By: #### B MP, CBC ####[place] [id number] [facility] Basophils/100 WBC (Bld) 0.2 % Normal . [facility] Comment on above: Performed By: #### B MP, CBC ####[address] Eosinophils (Bld) [#/Vol] 0.0 10*3/uL Normal 0.0-0.45 [facility] Comment on above: Performed By: #### B MP, CBC ####[address] Eosinophils/100 WBC (Bld) 0.2 % Normal . [facility] Comment on above: Performed By: #### B MP, CBC ####[address] Erythrocyte distribution width (RBC) [Ratio] 14.4 % Normal 11.9-15.3 [facility] Comment on above: Performed By: #### B MP, CBC ####[address] Hematocrit (Bld) [Volume fraction] 39.7 % Normal 34.0-46.4 [facility] Comment on above: Performed By: #### B MP, CBC ####[address] Hemoglobin (Bld) [Mass/Vol] 13.2 g/dL Normal 11.8-15.4 [facility] Comment on above: Performed By: #### B MP, CBC ####[address] Lymphocytes (Bld) [#/Vol] 0.7 10*3/uL Low 1.00-4.8 [facility] Comment on above: Performed By: #### B MP, CBC ####[address] Lymphocytes/100 WBC (Bld) 7.0 % Normal . [facility] Comment on above: Performed By: #### B MP, CBC ####[address] MCH (RBC) [Entitic mass] 31.6 pg Normal 24.7-34.3 [facility] Comment on above: Performed By: #### B MP, CBC ####[address] MCV (RBC) [Entitic vol] 95.5 fL Normal 80-100 [facility] Comment on above: Performed By: #### B MP, CBC ####[address] Mean Corpuscular HGB Conc 33.1 g/dL Normal 32.0-35.0 [facility] Comment on above: Performed By: #### B MP, CBC ####[address] Monocytes (Bld) [#/Vol] 1.2 10*3/uL High 0.0-0.8 [facility] Comment on above: Performed By: #### B MP, CBC ####[address] Monocytes/100 WBC (Bld) 12.3 % Normal . [facility] Comment on above: Performed By: #### B MP, CBC ####[address] Neutrophils (Bld) [#/Vol] 8.1 10*3/uL High 1.8-7.7 [facility] Comment on above: Performed By: #### B MP, CBC ####[address] Neutrophils/100 WBC (Bld) 80.3 % Normal . [facility] Comment on above: Performed By: #### B MP, CBC ####[address] Nucleated RBC/100 WBC (Bld) [Ratio] 0.0 % Normal 0-0.5 [facility] Comment on above: Performed By: #### B MP, CBC ####[address] Platelet mean volume (Bld) [Entitic vol] 7.8 fL Normal 6.3-10.7 [facility] Comment on above: Performed By: #### B MP, CBC ####[place] [id number] [address] Platelets (Bld) [#/Vol] 210 10*3/uL Normal 150-450 [facility] Comment on above: Performed By: #### B MP, CBC ####[place] [address] RBC (Bld) [#/Vol] 4.16 10*6/uL Normal 3.60-5.00 [facility] Comment on above: Performed By: #### B MP, CBC ####[place] [address] WBC (Bld) [#/Vol] 10.1 10*3/uL Normal 4.5-11.0 [facility] Comment on above: Performed By: #### B MP, CBC ####[address] XR abdomen min 2Von 08-03-20 21 XR abdomen min 2V [facility] Main [place] [address] [place] [address] XRay Report Signed Patient: Areli Hawkins MR#: [id number] : 1945 Acct:[id number] Age/Sex: 75 / F ADM Date: 08/01/21 Loc: Room: [address] [place] [address] Type: ADM IN Attending Dr: Indio Puga [...] Harsh Pickett M.D.08/03/2021 8:21 AM Dictation Location: [facility]- Transcribed By: JORGE 08/03/21820 Dictated By: Harsh Pickett MD 08/03/21814 Signed By: 08/03/21820 [facility] Basic Metabolic Panelon 07-24 Calcium [Mass/Vol] 8.9 mg/dL Normal 8.2-10.2 [facility] Comment on above: Performed By: #### Michael Mendez, BMP ####[place] [address] [place] [id number] [place] Chloride [Moles/Vol] 109 mmol/L Normal 95-114 [facility] Comment on above: Performed By: #### Michael Mendez, BMP ####[place] [address] [place] [address] [facility] CO2 [Moles/Vol] 19.9 mmol/L Low 22.0-30.0 [facility] Comment on above: Performed By: #### Michael Mendez, BMP ####[place] [address] [place] [address] [facility] Creatinine [Mass/Vol] 0.70 mg/dL Normal 0.44-1.03 [facility] Comment on above: Performed By: #### Michael Mendez, BMP ####[place] [address] [place] [address] [place] Creatinine Clr Calc Pharmacy 71.76 [facility] Comment on above: Performed By: #### Michael Mendez, BMP ####[facility] [place] [address] [facility] Estimated GFR ( Joey > 60 [facility] Comment on above: Result Comment: GFR estimated reference range: According to KDOQI guidelines, <60 ml/min/1.73m2 is sufficient to diagnose a patient with chronic kidney disease. Performed By: #### Michael Mendez, BMP ####[place] [id number] [facility] Estimated GFR (Non- Am > 60 Normal [facility] Comment on above: Performed By: #### M Vanessa, BMP ####[address] [address] [facility] Glucose [Mass/Vol] 99 mg/dL Normal 70-100 [facility] Comment on above: Result Comment: [facility] Glucose Reference Range is dependent on time and content of last meal. Glucose of more than 200 mg/dL in a nonstressed, ambulatory subject supports the diagnosis of Diabetes Mellitus. ADA recommended reference range Performed By: #### Michael Mendez, BMP ####[place] [id number] [facility] Potassium [Moles/Vol] 3.4 mmol/L Low 3.5-5.1 [facility] Comment on above: Performed By: #### Michael Mendez, BMP ####[place] [id number] [facility] Sodium [Moles/Vol] 141 mmol/L Normal 136-146 [facility] Comment on above: Performed By: #### Michael Mendez, BMP ####[place] [id number] [facility] Urea nitrogen [Mass/Vol] 5 mg/dL Low 9-23 [facility] Comment on above: Performed By: #### Michael Mendez, BMP ####[place] [id number] [facility] Complete Blood Count Auto Di ffon 08-02-2021 Basophils (Bld) [#/Vol] 0.0 10*3/uL Normal 0.0-0.2 [facility] Comment on above: Order Comment: Speci men clotted. Redraw requested. Notified Shannen HENAO. Will notify Juwan Gu RN. Result Comment: PERF ORMED BY: [facility] [address] [place] [address] PATHOLOGIST WELL TREATMENT OFFSIDER ROBYN CASAS M.D. Performed By: #### C BC ####[address] Basophils/100 WBC (Bld) 0.1 % Normal . [facility] Comment on above: Order Comment: Speci men clotted. Redraw requested. Notified Shannen HENAO. Will notify Juwan Gu RN. Performed By: #### C BC ####[address] Eosinophils (Bld) [#/Vol] 0.0 10*3/uL Normal 0.0-0.45 [facility] Comment on above: Order Comment: Speci men clotted. Redraw requested. Notified Shannen HENAO. Will notify Juwan Gu RN. Performed By: #### C BC ####[address] Eosinophils/100 WBC (Bld) 0.3 % Normal . [facility] Comment on above: Order Comment: Speci men clotted. Redraw requested. Notified Shannen HENAO. Will notify Juwan Gu RN. Performed By: #### C BC ####[address] Erythrocyte distribution width (RBC) [Ratio] 14.2 % Normal 11.9-15.3 [facility] Comment on above: Order Comment: Speci men clotted. Redraw requested. Notified Shannen HENAO. Will notify Juwan Gu RN. Performed By: #### C BC ####[address] Hematocrit (Bld) [Volume fraction] 39.5 % Normal 34.0-46.4 [facility] Comment on above: Order Comment: Speci men clotted. Redraw requested. Notified Shannen HENAO. Will notify Juwan Gu RN. Performed By: #### C BC ####[address] Hemoglobin (Bld) [Mass/Vol] 13.0 g/dL Normal 11.8-15.4 [facility] Comment on above: Order Comment: Speci men clotted. Redraw requested. Notified Shannen HENAO. Will notify Juwan Gu RN. Performed By: #### C BC ####[address] Lymphocytes (Bld) [#/Vol] 0.8 10*3/uL Low 1.00-4.8 [facility] Comment on above: Order Comment: Speci men clotted. Redraw requested. Notified Shannen HENAO. Will notify Juwan Gu RN. Performed By: #### C BC ####[address] Lymphocytes/100 WBC (Bld) 7.0 % Normal . [facility] Comment on above: Order Comment: Speci men clotted. Redraw requested. Notified Shannen HENAO. Will notify Juwan Gu RN. Performed By: #### C BC ####[address] MCH (RBC) [Entitic mass] 31.3 pg Normal 24.7-34.3 [facility] Comment on above: Order Comment: Speci men clotted. Redraw requested. Notified Shannen HENAO. Will notify Juwan Gu RN. Performed By: #### C BC ####[address] MCV (RBC) [Entitic vol] 95.4 fL Normal 80-100 [facility] Comment on above: Order Comment: Speci men clotted. Redraw requested. Notified Shannen HENAO. Will notify Juwan Gu RN. Performed By: #### C BC ####[address] Mean Corpuscular HGB Conc 32.9 g/dL Normal 32.0-35.0 [facility] Comment on above: Order Comment: Speci men clotted. Redraw requested. Notified Shannen HENAO. Will notify Juwan Gu RN. Performed By: #### C BC ####[address] Monocytes (Bld) [#/Vol] 0.9 10*3/uL High 0.0-0.8 [facility] Comment on above: Order Comment: Speci men clotted. Redraw requested. Notified Shannen HENAO. Will notify Juwan Gu RN. Performed By: #### C BC ####[address] Monocytes/100 WBC (Bld) 7.7 % Normal . [facility] Comment on above: Order Comment: Speci men clotted. Redraw requested. Notified Shannen HENAO. Will notify Juwan Gu RN. Performed By: #### C BC ####[address] Neutrophils (Bld) [#/Vol] 9.5 10*3/uL High 1.8-7.7 [facility] Comment on above: Order Comment: Speci men clotted. Redraw requested. Notified Shannen HENAO. Will notify Juwan Gu RN. Performed By: #### C BC ####[address] Neutrophils/100 WBC (Bld) 84.9 % Normal . [facility] Comment on above: Order Comment: Speci men clotted. Redraw requested. Notified Shannen TRIPLETT Will notify Juwan Gu RN. Performed By: #### C BC ####[address] Nucleated RBC/100 WBC (Bld) [Ratio] 0.0 % Normal 0-0.5 [facility] Comment on above: Order Comment: Speci men clotted. Redraw requested. Notified Shannen TRIPLETT Will notify Juwan Gu RN. Performed By: #### C BC ####[place] [id number] [facility] Platelet mean volume (Bld) [Entitic vol] 8.2 fL Normal 6.3-10.7 [facility] Comment on above: Order Comment: Speci men clotted. Redraw requested. Notified Shannen HENAO. Will notify Juwan Gu RN. Performed By: #### C BC ####[address] Platelets (Bld) [#/Vol] 193 10*3/uL Normal 150-450 [facility] Comment on above: Order Comment: Speci men clotted. Redraw requested. Notified Shannen HENAO. Will notify Juwan Gu RN. Performed By: #### C BC ####[address] RBC (Bld) [#/Vol] 4.14 10*6/uL Normal 3.60-5.00 [facility] Comment on above: Order Comment: Speci men clotted. Redraw requested. Notified Shannen HENAO. Will notify Juwan Gu RN. Performed By: #### C BC ####[address] WBC (Bld) [#/Vol] 11.2 10*3/uL High 4.5-11.0 [facility] Comment on above: Order Comment: Speci men clotted. Redraw requested. Notified Shannen HENAO. Will notify Juwan Gu RN. Performed By: #### C BC ####[address] Magnesiumon 08-02-2021 Magnesium [Mass/Vol] 1.8 mg/dL Normal 1.6-2.6 [facility] Comment on above: Result Comment: PERF ORMED BY: [facility] [address] [id number] PATHOLOGIST WELL TREATMENT OFFSIDER ROBYN CASAS M.D. Performed By: #### M Vanessa BMP ####[facility] [address] XR KUBon 08-02-2021 XR KUB [facility] Main [place] [address] [place] [id number] XRay Report Signed Patient: Areli Hawkins MR#: [id number] : 1945 Acct:[id number] Age/Sex: 75 / F ADM Date: 08/01/21 Loc: Room: 7E3770-5 Type: ADM IN Attending Dr: Indio Puga [...] Allan Salinas M.D.08/02/2021 8:28 AM Dictation Location: [place] [address] Transcribed By: [facility] 08/02/21827 Dictated By: Allan Salinas DO 08/02/21809 Signed By: 08/02/21827 [facility] COVID-19 Antigenon 1 COVID-19 Antigen Healthcare Worker?: [...] its performance Heaven Disclaimer characteristic determined by Naked and Heaven Disclaimer validated at [facility]. This Heaven Disclaimer test has not been [...] Emergency Use Authorization for Coronavirus Heaven Disclaimer during the Public Health Emergency) Heaven Disclaimer issued on December 24, 2019. This test is only authorized Heaven Disclaimer for the duration of time the declaration that Heaven Disclaimer circumstances exist justifying the authorization of Haeven Disclaimer the emergency use of in vitro diagnostic tests for Heaven Disclaimer detection of SARS-CoV-2 virus and/or diagnosis of Heaven Disclaimer COVID-19 infection under section 564(b)(1) of the [place]aven Disclaimer Act, 21 U.S.C. 360bbb-3(b)(1), unless the Heaven Disclaimer authorization is terminated or revoked sooner. PERFORMED BY: [facility] [address] [place] [address] PATHOLOGIST WELL TREATMENT OFFSIDER ROBYN CASAS M.D. Normal [facility] Comment on above: Performed By: #### S OFPATRICIA, COVID-19 HEAVEN #### [facility] [address] [place] [address] [facility] COVID-19 [facility] 08-01-2021 SARS-CoV-2 (COVID-19) RNA CHETAN+probe Ql (Unsp spec) Negative Normal Negative [facility] Comment on above: Order Comment: Healt hcare Worker?: N Result Comment: Testing for SARS-CoV-2 by RT-PCR This test was developed and its performance characteristics determined by [employer]) and validated at the [facility]. This test has not been FDA cleared [...] is terminated or revoked sooner. PERFORMED BY: [facility] [address] [place] [address] PATHOLOGIST WELL TREATMENT OFFSIDER ROBYN CASAS M.D. Performed By: #### C OVID 19 [facility] ####[facility] [id number] [place] [address] [facility] abdomen pelvis wo conon 1 10-01-2020 [address] abdomen pelvis wo con [facility] Main [place] [address] [place] [id number] Scan Report Signed Patient: Areli Hawkins MR#: [id number] : 1945 Acct:[id number] Age/Sex: 75 / F ADM Date: 08/01/21 Loc: Room: [address] [place] [address] Type: ADM IN Attending Dr: Indio Puga [...] Allan Salinas M.D.08/01/2021 9:44 AM Dictation Location: [place] [address] Transcribed By: [facility] 08/01/21943 Dictated By: Allan Salinas DO 08/01/21937 Signed By: 08/01/21943 Normal [facility] Complete Blood Count Auto Di ffon 08-01-2021 Basophils (Bld) [#/Vol] 0.0 10*3/uL Normal 0.0-0.2 [facility] Comment on above: Result Comment: PERF ORMED BY: [place] [address] PATHOLOGIST WELL TREATMENT OFFSIDER ROBYN CASAS M.D. Performed By: #### C BC, LIPASE, LACTIC, CMP #### [address] Basophils/100 WBC (Bld) 0.4 % Normal . [facility] Comment on above: Performed By: #### C BC, LIPASE, LACTIC, CMP #### [facility] [address] [place] [address] Eosinophils (Bld) [#/Vol] 0.1 10*3/uL Normal 0.0-0.45 [facility] Comment on above: Performed By: #### C BC, LIPASE, LACTIC, CMP #### [address] Eosinophils/100 WBC (Bld) 0.8 % Normal . [facility] Comment on above: Performed By: #### C BC, LIPASE, LACTIC, CMP #### [address] Erythrocyte distribution width (RBC) [Ratio] 14.0 % Normal 11.9-15.3 [facility] Comment on above: Performed By: #### C BC, LIPASE, LACTIC, CMP #### [address] Hematocrit (Bld) [Volume fraction] 39.8 % Normal 34.0-46.4 [facility] Comment on above: Performed By: #### C BC, LIPASE, LACTIC, CMP #### [address] Hemoglobin (Bld) [Mass/Vol] 13.3 g/dL Normal 11.8-15.4 [facility] Comment on above: Performed By: #### C BC, LIPASE, LACTIC, CMP #### [address] Lymphocytes (Bld) [#/Vol] 1.0 10*3/uL Normal 1.00-4.8 [facility] Comment on above: Performed By: #### C BC, LIPASE, LACTIC, CMP #### [address] Lymphocytes/100 WBC (Bld) 10.9 % Normal . [facility] Comment on above: Performed By: #### C BC, LIPASE, LACTIC, CMP #### [address] MCH (RBC) [Entitic mass] 31.3 pg Normal 24.7-34.3 [facility] Comment on above: Performed By: #### C BC, LIPASE, LACTIC, CMP #### [address] MCV (RBC) [Entitic vol] 93.7 fL Normal 80-100 [facility] Comment on above: Performed By: #### C BC, LIPASE, LACTIC, CMP #### [address] Mean Corpuscular HGB Conc 33.4 g/dL Normal 32.0-35.0 [facility] Comment on above: Performed By: #### C BC, LIPASE, LACTIC, CMP #### [address] Monocytes (Bld) [#/Vol] 0.9 10*3/uL High 0.0-0.8 [facility] Comment on above: Performed By: #### C BC, LIPASE, LACTIC, CMP #### [facility] [address] [place] [address] [place] Monocytes/100 WBC (Bld) 9.5 % Normal . [facility] Comment on above: Performed By: #### C BC, LIPASE, LACTIC, CMP #### [facility] [address] [place] [address] [place] Neutrophils (Bld) [#/Vol] 7.4 10*3/uL Normal 1.8-7.7 [facility] Comment on above: Performed By: #### C BC, LIPASE, LACTIC, CMP #### [facility] [address] [place] [address] [place] Neutrophils/100 WBC (Bld) 78.4 % Normal . [facility] Comment on above: Performed By: #### C BC, LIPASE, LACTIC, CMP #### [facility] [address] [place] [address] [place] Nucleated RBC/100 WBC (Bld) [Ratio] 0.1 % Normal 0-0.5 [facility] Comment on above: Performed By: #### C BC, LIPASE, LACTIC, CMP #### [facility] [address] [place] [address] [place] Platelet mean volume (Bld) [Entitic vol] 8.5 fL Normal 6.3-10.7 [facility] Comment on above: Performed By: #### C BC, LIPASE, LACTIC, CMP #### [facility] [address] [place] [address] [place] Platelets (Bld) [#/Vol] 194 10*3/uL Normal 150-450 [facility] Comment on above: Performed By: #### C BC, LIPASE, LACTIC, CMP #### [facility] [address] [place] [address] [place] RBC (Bld) [#/Vol] 4.25 10*6/uL Normal 3.60-5.00 [facility] Comment on above: Performed By: #### C BC, LIPASE, LACTIC, CMP #### [facility] [address] [place] [address] [place] WBC (Bld) [#/Vol] 9.5 10*3/uL Normal 4.5-11.0 [facility] Comment on above: Performed By: #### C BC, LIPASE, LACTIC, CMP #### [facility] [address] [place] [address] Comprehensive Metabolic Pane lizy 08-01-2021 Albumin [Mass/Vol] 3.5 g/dL Normal 3.2-5.5 [facility] Comment on above: Performed By: #### C BC, LIPASE, LACTIC, CMP #### [address] Albumin/Globulin [Mass ratio] 1.3 {ratio} Normal [facility] Comment on above: Performed By: #### C BC, LIPASE, LACTIC, CMP #### [address] ALP [Catalytic activity/Vol] 54 U/L Normal 32-92 [facility] Comment on above: Performed By: #### C BC, LIPASE, LACTIC, CMP #### [address] ALT [Catalytic activity/Vol] 16 U/L Normal 10-60 [facility] Comment on above: Performed By: #### C BC, LIPASE, LACTIC, CMP #### [address] AST [Catalytic activity/Vol] 30 U/L Normal 10-42 [facility] Comment on above: Performed By: #### C BC, LIPASE, LACTIC, CMP #### [address] Bilirubin [Mass/Vol] 0.7 mg/dL Normal 0.3-1.2 [facility] Comment on above: Performed By: #### C BC, LIPASE, LACTIC, CMP #### [address] Calcium [Mass/Vol] 9.1 mg/dL Normal 8.2-10.2 [facility] Comment on above: Performed By: #### C BC, LIPASE, LACTIC, CMP #### [address] Chloride [Moles/Vol] 106 mmol/L Normal 95-114 [facility] Comment on above: Performed By: #### C BC, LIPASE, LACTIC, CMP #### [facility] [address] CO2 [Moles/Vol] 21.0 mmol/L Low 22.0-30.0 [facility] Comment on above: Performed By: #### C BC, LIPASE, LACTIC, CMP #### [address] Creatinine [Mass/Vol] 0.77 mg/dL Normal 0.44-1.03 [facility] Comment on above: Performed By: #### C BC, LIPASE, LACTIC, CMP #### [address] Creatinine Clr Calc Pharmacy 71.76 [facility] Comment on above: Performed By: #### C BC, LIPASE, LACTIC, CMP #### [address] Estimated GFR ( Joey > 60 [facility] Comment on above: Result Comment: GFR estimated reference range: According to KDOQI guidelines, <60 ml/min/1.73m2 is sufficient to diagnose a patient with chronic kidney disease. Performed By: #### C BC, LIPASE, LACTIC, CMP #### [address] Estimated GFR (Non- Am > 60 [facility] Comment on above: Performed By: #### C BC, LIPASE, LACTIC, CMP #### [address] Globulin (S) [Mass/Vol] 2.6 g/dL [facility] Comment on above: Performed By: #### C BC, LIPASE, LACTIC, CMP #### [address] Glucose [Mass/Vol] 106 mg/dL High 70-100 [facility] Comment on above: Result Comment: [place] Glucose Reference Range is dependent on time and content of last meal. Glucose of more than 200 mg/dL in a nonstressed, ambulatory subject supports the diagnosis of Diabetes Mellitus. ADA recommended reference range Performed By: #### C BC, LIPASE, LACTIC, CMP #### [facility] [address] Potassium [Moles/Vol] 3.2 mmol/L Low 3.5-5.1 [facility] Comment on above: Performed By: #### C BC, LIPASE, LACTIC, CMP #### [facility] [address] Protein [Mass/Vol] 6.1 g/dL Normal 6.1-7.9 [facility] Comment on above: Performed By: #### C BC, LIPASE, LACTIC, CMP #### [address] Sodium [Moles/Vol] 139 mmol/L Normal 136-146 [facility] Comment on above: Performed By: #### C BC, LIPASE, LACTIC, CMP #### [address] Urea nitrogen [Mass/Vol] 7 mg/dL Low 9-23 [facility] Comment on above: Performed By: #### C BC, LIPASE, LACTIC, CMP #### [address] Consultation Noteon 08-01-20 Consultation Note [id number] D:127 Normal [facility] ECG 12 lead ECGon 08-01-2021 ECG 12 lead ECG [facility] Main [place] [address] [place] [address] Electrocardiograph Report Signed Patient: Areli Hawkins MR#: [id number] : 1945 Acct:[id number] Age/Sex: 75 / F ADM Date: 08/01/21 Loc: ER Room: Type: [facility] ER Attending Dr: Ordering Provider: Matt [...] ECGs available Confirmed by MATT MARTINEZ MD ([id number]) on 08/01/2021 5:35:09 AM Referred By: Electronically Signed By:MATT MARTINEZ MD Transcribed By: MUS Signed By Matt Martinez Jr, MD [id number] Normal [facility] Lactic Acidon 08-01-2021 Lactate [Moles/Vol] 1.5 mmol/L Normal 0.5-2.2 [facility] Comment on above: Result Comment: PERF ORMED BY: [place] [address] PATHOLOGIST WELL TREATMENT OFFSIDER ROBYN CASAS M.D. Performed By: #### C BC, LIPASE, LACTIC, CMP #### [address] Lipaseon 08-01-2021 Lipase [Catalytic activity/Vol] 28.0 U/L Normal 22-51 [facility] Comment on above: Result Comment: PERF ORMED BY: [place] [address] PATHOLOGIST WELL TREATMENT OFFSIDER ROBYN CASAS M.D. Performed By: #### C BC, LIPASE, LACTIC, CMP #### [facility] [address] [place] [address] RAD - MISCon 08-01-2021 RAD - MISC [id number] D:127 Normal [facility] Heaven Ag Negativeon 08-01-20 21 [facility] Ag Negative Negative Normal Negative [facility] Comment on above: Result Comment: This is a duplicate [place] SARS Antigen (ALEKS) result to be used for statistical tracking purpose only. PERFORMED BY: [place] [id number] PATHOLOGIST WELL TREATMENT OFFSIDER ROBYN CASAS M.D. Performed By: #### S OFMURPHY, COVID-19 HEAVEN #### [place] [address] [place] Urinalysison 08-01-2021 Appearance (U) Clear Normal Clear [facility] Comment on above: Order Comment: Name Collection Type:: Clean-Voided Midstream Performed By: #### U A #### [place] [address] [place] Bilirubin,Urine Negative Normal Negative [facility] Comment on above: Order Comment: Name Collection Type:: Clean-Voided Midstream Performed By: #### U A #### [address] Color (U) Yellow Normal Yellow [facility] Comment on above: Order Comment: Name Collection Type:: Clean-Voided Midstream Performed By: #### U A #### [address] Glucose Ql (U) Normal Normal Normal [facility] Comment on above: Order Comment: Name Collection Type:: Clean-Voided Midstream Performed By: #### U A #### [address] Ketones Ql (U) Negative Normal Negative [facility] Comment on above: Order Comment: Name Collection Type:: Clean-Voided Midstream Performed By: #### U A #### [address] Leukocyte esterase Test strip Ql (U) Negative Normal Negative [facility] Comment on above: Order Comment: Name Collection Type:: Clean-Voided Midstream Performed By: #### U A #### [place] [address] [place] Nitrite,Urine Negative Normal Negative [facility] Comment on above: Order Comment: Name Collection Type:: Clean-Voided Midstream Performed By: #### U A #### [place] [address] [place] Occult Blood,Urine Negative Normal Negative [facility] Comment on above: Order Comment: Name Collection Type:: Clean-Voided Midstream Result Comment: PERF ORMED BY: [place] [address] PATHOLOGIST WELL TREATMENT OFFSIDER ROBYN CASAS M.D. Performed By: #### U A #### [facility] [address] [place] [address] [place] pH (U) 5.5 [pH] Normal 5.0-9.0 [facility] Comment on above: Order Comment: Name Collection Type:: Clean-Voided Midstream Performed By: #### U A #### [address] Protein,Urine Negative Normal Negative [facility] Comment on above: Order Comment: Name Collection Type:: Clean-Voided Midstream Performed By: #### U A #### [address] Specificy [place],Urine 1.011 Normal 1.001-1.030 [facility] Comment on above: Order Comment: Name Collection Type:: Clean-Voided Midstream Performed By: #### U A #### [address] Urobilinogen,Urine Normal Normal Normal [facility] Comment on above: Order Comment: Name Collection Type:: Clean-Voided Midstream Performed By: #### U A #### [place] [address] [place] XR abdomen 1Von 08-01-2021 XR abdomen 1V [facility] [place] [address] XRay Report Signed Patient: Areli Hawkins MR#: [id number] : 1945 Acct:[id number] Age/Sex: 75 / F ADM Date: 08/01/21 Loc: Room: [address] [place] [address] Type: ADM IN Attending Dr: Indio Puga [...] Harsh Pickett M.D.08/01/2021 8:52 AM Dictation Location: [place] [address] Transcribed By: [facility] 08/01/21851 Dictated By: Harsh Pickett MD 08/01/2150 Signed By: 08/01/21851 [facility] CBC AUTO DIFFon 07-31-2021 BASO # 0.0 103/ul Normal 0.0-0.[address] [facility] Comment on above: Performed By: #### C BC #### [facility] [address] [place] [address] Dr. Millie Flores Basophils/100 WBC (Bld) 0.4 % Normal 0.2-2.[address] [facility] Comment on above: Performed By: #### C BC #### [facility] [address] [place] [address] Dr. Millie Flores EO # 0.2 103/ul Normal 0.0-0.[address] [facility] Comment on above: Performed By: #### C BC #### [facility] [address] [place] [address] Dr. Millie Flores Eosinophils/100 WBC (Bld) 2.2 % Normal 0.9-7.[address] [facility] Comment on above: Performed By: #### C BC #### [facility] [address] [place] [address] Dr. Millie Flores Erythrocyte distribution width (RBC) [Ratio] 13.9 % Normal 11.0-15.[address] [facility] Comment on above: Performed By: #### C BC #### [facility] [address] [place] [address] Dr. Millie Flores Hematocrit (Bld) [Volume fraction] 35.7 % Critically low 36.0-48.[address] [facility] Comment on above: Performed By: #### C BC #### [facility] [address] [place] [address] Dr. Millie Flores Hemoglobin (Bld) [Mass/Vol] 11.2 g/dL Critically low 12.0-16.[address] [facility] Comment on above: Performed By: #### C BC #### [facility] [address] [place] [address] Dr. Millie Flores IG # 0.04 10e3/ul Critically high 0.00-0.03 [facility] Comment on above: Performed By: #### C BC #### [facility] [address] [place] [address] Dr. Millie Flores IG % 0.5 % Normal 0.0-0.[address] [facility] Comment on above: Performed By: #### C BC #### [facility] [address] [place] [address] Dr. Millie Flores LYMPH # 2.3 103/ul Normal 1.2-3.[address] [facility] Comment on above: Performed By: #### C BC #### [facility] [address] [place] [address] Dr. Millie Flores Lymphocytes/100 WBC (Bld) 31.7 % Normal 20.5-60.[address] [facility] Comment on above: Performed By: #### C BC #### [facility] [address] [place] [address] Dr. Millie Flores MANUAL DIFF REQ NO Normal [facility] Comment on above: Performed By: #### C BC #### [facility] [address] [place] [address] Dr. Millie Flores MCH (RBC) [Entitic mass] 31.0 pg Normal 26.7-34.[address] [facility] Comment on above: Performed By: #### C BC #### [facility] [address] [place] [address] Dr. Millie Flores MCHC (RBC) [Mass/Vol] 31.4 g/dL Normal 29.9-35.[address] [facility] Comment on above: Performed By: #### C BC #### [facility] [address] [place] [address] [address] Millie Flores MCV (RBC) [Entitic vol] 98.9 fL Normal 81.0-99.[address] [facility] Comment on above: Performed By: #### C BC #### [facility] [address] [place] [address] [address] Millie Flores MONO # 0.9 103/ul Critically high 0.3-0.8 [facility] Comment on above: Performed By: #### C BC #### [facility] [address] [place] [address] Dr. Millie Flores Monocytes/100 WBC (Bld) 12.5 % Critically high 1.7-12.[address] [facility] Comment on above: Performed By: #### C BC #### [facility] [address] [place] [address] Dr. Millie Flores NEUT # 3.8 103/ul Normal 1.4-6.[address] [facility] Comment on above: Performed By: #### C BC #### [facility] [address] [place] [address] Dr. Millie Flores Neutrophils/100 WBC (Bld) 52.7 % Normal 43.0-75.[address] [facility] Comment on above: Performed By: #### C BC #### [facility] [address] [place] [address] [address] Millie Flores Platelet mean volume (Bld) [Entitic vol] 10.2 fL Normal 9.5-13.5 [facility] Comment on above: Performed By: #### C BC #### [facility] [address] [place] [address] Dr. Millie Flores PLT 165 103/ul Normal 150-450 [facility] Comment on above: Performed By: #### C BC #### [facility] [address] [place] [address] Dr. Millie Flores RBC 3.61 106/ul Critically low 4.20-5.40 [facility] Comment on above: Performed By: #### C BC #### [facility] [address] [place] [address] Dr. Millie Flores WBC 7.3 103/ul Normal 4.0-11.[address] [facility] Comment on above: Performed By: #### C BC #### [facility] [address] [place] [address] Dr. Millie Flores CULTURE URINEon 07-31-2021 CULTURE [...] Trimethoprim/Sulfametho xazole <=20 S F Normal [facility] Comment on above: Performed By: #### B MP #### [facility] [address] [place] [address] Dr. Millie Flores PROF CHEM 8 (BAS METB)on Anion gap [Moles/Vol] 11.5 mmol/L Normal [facility] Comment on above: Performed By: #### B MP #### [facility] [address] [place] [address] Dr. Millie Flores Calcium [Mass/Vol] 8.2 mg/dL Critically low 8.4-10.2 [facility] Comment on above: Performed By: #### B MP #### [facility] [address] [place] [address] Dr. Millie Flores Chloride [Moles/Vol] 109 mmol/L Critically high 98-[address] [facility] Comment on above: Performed By: #### B MP #### [facility] [address] [place] [address] [address] Millie Flores CO2 [Moles/Vol] 26.4 mmol/L Normal 22.0-30.0 [facility] Comment on above: Performed By: #### B MP #### [facility] [address] [place] [address] [address] Millie Flores Creatinine [Mass/Vol] 0.69 mg/dL Normal 0.52-1.04 [facility] Comment on above: Performed By: #### B MP #### [facility] [address] [place] [address] [address] Millie Flores EGFR-AF AUSTRIAN >60 Normal >=60 [facility] Comment on above: Performed By: #### B MP #### [facility] [address] [place] [address] Dr. Millie Flores EGFR-NON AF AUSTRIAN >60 Normal >=[address] [facility] Comment on above: Performed By: #### B MP #### [facility] [address] [place] [address] [address] Millie Flores Glucose [Mass/Vol] 92 mg/dL Normal 74-[address] [facility] Comment on above: Performed By: #### B MP #### [facility] [address] [place] [address] Dr. Millie Flores Potassium [Moles/Vol] 3.9 mmol/L Normal 3.4-5.[address] [facility] Comment on above: Performed By: #### B MP #### [facility] [address] [place] [address] [address] Millie Flores Sodium [Moles/Vol] 143 mmol/L Normal 137-[address] [facility] Comment on above: Performed By: #### B MP #### [facility] [address] [place] [address] Dr. Millie Flores Urea nitrogen [Mass/Vol] 8.0 mg/dL Normal 7.0-17.[address] [facility] Comment on above: Performed By: #### B MP #### [facility] [address] [place] [address] Dr. Millie Flores Urea nitrogen/Creatinine [Mass ratio] 11.6 mg/mg Normal [facility] Comment on above: Performed By: #### B MP #### [facility] [address] [place] [address] Dr. Millie Flores CBC AUTO DIFFon 07-30-2021 BASO # 0.1 103/ul Normal 0.0-0.[address] [facility] Comment on above: Performed By: #### C BC #### [facility] [address] [place] [address] Dr. Millie Flores Basophils/100 WBC (Bld) 0.4 % Normal 0.2-2.[address] [facility] Comment on above: Performed By: #### C BC #### [facility] [address] [place] [address] Dr. Millie Flores EO # 0.0 103/ul Normal 0.0-0.[address] [facility] Comment on above: Performed By: #### C BC #### [facility] [address] [place] [address] Dr. Millie Flores Eosinophils/100 WBC (Bld) 0.3 % Critically low 0.9-7.[address] [facility] Comment on above: Performed By: #### C BC #### [facility] [address] [place] [address] Dr. Millie Flores Erythrocyte distribution width (RBC) [Ratio] 13.5 % Normal 11.0-15.[address] [facility] Comment on above: Performed By: #### C BC #### [facility] [address] [place] [address] Dr. Millie Flores Hematocrit (Bld) [Volume fraction] 41.5 % Normal 36.0-48.[address] [facility] Comment on above: Performed By: #### C BC #### [facility] [address] [place] [address] Dr. Millie Flores Hemoglobin (Bld) [Mass/Vol] 13.7 g/dL Normal 12.0-16.[address] [facility] Comment on above: Performed By: #### C BC #### [facility] [address] [place] [address] Dr. Millie Flores IG # 0.05 10e3/ul Critically high 0.00-0.03 [facility] Comment on above: Performed By: #### C BC #### [facility] [address] [place] [address] Dr. Millie Flores IG % 0.4 % Normal 0.0-0.[address] [facility] Comment on above: Performed By: #### C BC #### [facility] [address] [place] [address] Dr. Millie Flores LYMPH # 1.8 103/ul Normal 1.2-3.[address] [facility] Comment on above: Performed By: #### C BC #### [facility] [address] [place] [address] Dr. Millie Flores Lymphocytes/100 WBC (Bld) 14.7 % Critically low 20.5-60.[address] [facility] Comment on above: Performed By: #### C BC #### [facility] [address] [place] [address] Dr. Millie Flores MANUAL DIFF REQ NO Normal [facility] Comment on above: Performed By: #### C BC #### [facility] [address] [place] [address] Dr. Millie Flores MCH (RBC) [Entitic mass] 31.5 pg Normal 26.7-34.[address] [facility] Comment on above: Performed By: #### C BC #### [facility] [address] [place] [address] Dr. Millie Flores MCHC (RBC) [Mass/Vol] 33.0 g/dL Normal 29.9-35.[address] [facility] Comment on above: Performed By: #### C BC #### [facility] [address] [place] [address] Dr. Millie Flores MCV (RBC) [Entitic vol] 95.4 fL Normal 81.0-99.[address] [facility] Comment on above: Performed By: #### C BC #### [facility] [address] [place] [address] Dr. Millie Flores MONO # 1.5 103/ul Critically high 0.3-0.8 [facility] Comment on above: Performed By: #### C BC #### [facility] [address] [place] [address] Dr. Millie Flores Monocytes/100 WBC (Bld) 12.7 % Critically high 1.7-12.[address] [facility] Comment on above: Performed By: #### C BC #### [facility] [address] [place] [address] Dr. Millie Flores NEUT # 8.7 103/ul Critically high 1.4-6.5 [facility] Comment on above: Performed By: #### C BC #### [facility] [address] [place] [address] Dr. Millie Flores Neutrophils/100 WBC (Bld) 71.5 % Normal 43.0-75.[address] [facility] Comment on above: Performed By: #### C BC #### [facility] [address] [place] [address] Dr. Millie Flores Platelet mean volume (Bld) [Entitic vol] 10.2 fL Normal 9.5-13.5 [facility] Comment on above: Performed By: #### C BC #### [facility] [address] [place] [address] Dr. Millie Flores PLT 218 103/ul Normal 150-450 [facility] Comment on above: Performed By: #### C BC #### [facility] [address] [place] [address] Dr. Millie Flores RBC 4.35 106/ul Normal 4.20-5.40 [facility] Comment on above: Performed By: #### C BC #### [facility] [address] [place] [address] Dr. Millie Flores WBC 12.1 103/ul Critically high 4.0-11.0 [facility] Comment on above: Performed By: #### C BC #### [facility] [address] [place] [address] Dr. Millie Flores PROF CHEM 8 (BAS METB)on Anion gap [Moles/Vol] 13.9 mmol/L Normal [facility] Comment on above: Performed By: #### C BC #### [facility] [address] [place] [address] Dr. Millie Flores Calcium [Mass/Vol] 8.8 mg/dL Normal 8.4-10.2 [facility] Comment on above: Performed By: #### C BC #### [facility] [address] [place] [address] Dr. Millie Flores Chloride [Moles/Vol] 105 mmol/L Normal 98-[address] [facility] Comment on above: Performed By: #### C BC #### [facility] [address] [place] [address] Dr. Millie Flores CO2 [Moles/Vol] 25.7 mmol/L Normal 22.0-30.0 [facility] Comment on above: Performed By: #### C BC #### [facility] [address] [place] [address] Dr. Millie Flores Creatinine [Mass/Vol] 0.73 mg/dL Normal 0.52-1.[address] [facility] Comment on above: Performed By: #### C BC #### [facility] [address] [place] [address] Dr. Millie Flores EGFR-AF AUSTRIAN >60 Normal >=60 [facility] Comment on above: Performed By: #### C BC #### [facility] [address] [place] [address] Dr. Millie Flores EGFR-NON AF AUSTRIAN >60 Normal >=[address] [facility] Comment on above: Performed By: #### C BC #### [facility] [address] [place] [address] Dr. Millie Flores Glucose [Mass/Vol] 120 mg/dL Critically high 74-106 [facility] Comment on above: Performed By: #### C BC #### [facility] [address] [place] [address] Dr. Millie Flores Potassium [Moles/Vol] 3.6 mmol/L Normal 3.4-5.[address] [facility] Comment on above: Performed By: #### C BC #### [facility] [address] [place] [address] [address] Millie Flores Sodium [Moles/Vol] 141 mmol/L Normal 137-145 [facility] Comment on above: Performed By: #### C BC #### [facility] [address] [address] [address] Millie Flores Urea nitrogen [Mass/Vol] 13.0 mg/dL Normal 7.0-17.[address] [facility] Comment on above: Performed By: #### C BC #### [facility] [address] [address] [address] Millie Flores Urea nitrogen/Creatinine [Mass ratio] 17.8 mg/mg Normal [facility] Comment on above: Performed By: #### C BC #### [facility] [address] [address] [address] Millie Flores XR ABD FLAT UP_PA [...] GEOVANI SELBY Date: 2021-07-30 09:44 Normal [facility] AMYLASEon 07-29-2021 Amylase [Catalytic activity/Vol] 105 U/L Normal 31-[address] [facility] Comment on above: Performed By: #### C BC #### [facility] [address] [address] [address] Millie Flores CBC W MANUAL DIFFon 07-29-20 21 ATYPICAL LYMPH # Normal [facility] Comment on above: Performed By: #### C BCMAN #### [facility] [address] [address] [address] Millie Flores ATYPICAL LYMPH % Normal [facility] Comment on above: Performed By: #### C GEOFFREY #### [facility] [address] [place] [address] Dr. Millie Flores BAND # Normal 0.0-0.[address] [facility] Comment on above: Performed By: #### C GEOFFREY #### [facility] [address] [place] [address] Dr. Millie Flores BAND % Normal 0-[address] [facility] Comment on above: Performed By: #### C GEOFFREY #### [facility] [address] [place] [address] Dr. Millie Flores BASOM # 0.00 103/ul Normal 0.00-0.[address] [facility] Comment on above: Performed By: #### C GEOFFREY #### [facility] [address] [place] [address] Dr. Millie Flores BASOM % 0.0 % Critically low 0.2-2.0 [facility] Comment on above: Performed By: #### C GEOFFREY #### [facility] [address] [place] [address] Dr. Millie Flores BLAST # Normal [facility] Comment on above: Performed By: #### C GEOFFREY #### [facility] [address] [place] [address] Dr. Millie Flores BLAST % Normal [facility] Comment on above: Performed By: #### C GEOFFREY #### [facility] [address] [place] [address] Dr. Millie Flores CORRECTED WBC Normal 4.0-11.0 [facility] Comment on above: Performed By: #### C GEOFFREY #### [facility] [address] [place] [address] Dr. Millie Florse EOS # 0.00 103/ul Normal 0.00-0.[address] [facility] Comment on above: Performed By: #### C GEOFFREY #### [facility] [address] [place] [address] Dr. Millie Flores EOS% 0.0 % Critically low 0.9-7.0 [facility] Comment on above: Performed By: #### C GEOFFREY #### [facility] [address] [address] [address] Millie Flores HCT 44.2 % Normal 36.0-48.[address] [facility] Comment on above: Performed By: #### C GEOFFREY #### [facility] [address] [address] [address] Millie Flores HGB 14.6 g/dl Normal 12.0-16.[address] [facility] Comment on above: Performed By: #### C GEOFFREY #### [facility] [address] [address] [address] Millie Flores LYMPHM # 1.93 103/ul Normal 1.20-3.[address] [facility] Comment on above: Performed By: #### C GEOFFREY #### [facility] [address] [place] [address] Dr. Millie Flores LYMPHM% 11.0 % Critically low 20.5-60.0 [facility] Comment on above: Performed By: #### C GEOFFREY #### [facility] [address] [place] [address] Dr. Millie Flores MCH 31.2 pg Normal 26.7-34.[address] [facility] Comment on above: Performed By: #### C GEOFFREY #### [facility] [address] [place] [address] Dr. Millie Flores MCHC 33.0 g/dl Normal 29.9-35.2 [facility] Comment on above: Performed By: #### C GEOFFREY #### [facility] [facility] [address] [place] [address] Dr. Millie Flores MCV 94.4 fL Normal 81.0-99.0 [facility] Comment on above: Performed By: #### C GEOFFREY #### [facility] [address] [place] [address] Dr. Millie Flores METAMYELOCYTE # Normal [facility] Comment on above: Performed By: #### C GEOFFREY #### [facility] [address] [address] [address] Millie Flores METAMYELOCYTE % Normal [facility] Comment on above: Performed By: #### C GEOFFREY #### [facility] [address] [address] [address] Millie Flores MONOM# 1.57 103/ul Critically high 0.30-0.80 [facility] Comment on above: Performed By: #### C GEOFFREY #### [facility] [address] [address] [address] Millie Flores MONOM% 9.0 % Normal 1.7-12.[address] [facility] Comment on above: Performed By: #### C GEOFFREY #### [facility] [address] [place] [address] Dr. Millie Flores MPV 9.9 fL Normal 9.5-13.[address] [facility] Comment on above: Performed By: #### C GEOFFREY #### [facility] [address] [place] [address] Dr. Millie Flores MYELOCYTE # Normal [facility] Comment on above: Performed By: #### C GEOFFREY #### [facility] [address] [place] [address] Dr. Millie Flores MYELOCYTE % Normal [facility] Comment on above: Performed By: #### C GEOFFREY #### [facility] [address] [place] [address] Dr. Millie Flores NRBC Normal [facility] Comment on above: Performed By: #### C GEOFFREY #### [facility] [address] [place] [address] Dr. Millie Flores PLT 258 103/ul Normal 150-450 [facility] Comment on above: Performed By: #### C GEOFFREY #### [facility] [address] [place] [address] Dr. Millie Flores RBC 4.68 106/ul Normal 4.20-5.[address] [facility] Comment on above: Performed By: #### C GEOFFREY #### [facility] [address] [place] [address] Dr. Millie Flores RDW 13.5 % Normal 11.0-15.[address] [facility] Comment on above: Performed By: #### C BCMAN #### [facility] [address] [place], [place] [address] Dr. Millie Flores SEG # 14.00 103/ul Critically high 1.40-6.50 [facility] Comment on above: Performed By: #### C BCMAN #### [facility] [address] [place], [place] [address] Dr. Millie Flores SEG % 80.0 % Critically high 43.0-75.0 [facility] Comment on above: Performed By: #### C BCMAN #### [facility] [address] [place], [place] [address] Dr. Millie Flores WBC 17.5 103/ul Critically high 4.0-11.0 [facility] Comment on above: Performed By: #### C BCMAN #### [facility] [address] [place], [place] [address] ABD/PELVIS WO CONon [...] MORENO JORGENSEN Date: 2021-07-29 18:25 Normal [facility] Covid-19 PCR ([facility])on SARS-CoV-2 (COVID-19) RNA CHETAN+probe Ql (Unsp spec) Not detected Normal NOT DETECTED [facility] Comment on above: Result Comment: This test is not yet approved or cleared by the [place] FDA. When there are no FDA-approved or cleared tests available, and other criteria are met, FDA can make tests available under an emergency access mechanism called an Emergency Use Authorization (EUA). The EUA for this test is supported by the Underwriting Support Specialist of Health and Human Service's (HHS's) declaration [...] SARS-CoV-2. Performed By: #### C VDTB #### [facility] [address] [place] [address] Dr. Millie MALCOLM URINE PROFILEon 1 Bilirubin Ql (U) Negative Normal NEGATIVE [facility] Comment on above: Performed By: #### U MICRO, ERUR #### [facility] [address] [address] [address] Millie Flores Clarity (U) CLEAR Normal CLEAR [facility] Comment on above: Performed By: #### U MICRO, ERUR #### [facility] [address] [place] [address] Dr. Millie Flores Color (U) YELLOW Normal YELLOW [facility] Comment on above: Performed By: #### U MICRO, ERUR #### [facility] [address] [address] [address] Millie Flores ERUAHD A micrscopic examination will be performed if indicated. Normal [facility] Comment on above: Performed By: #### U MICRO, ERUR #### [facility] [address] [place] [address] Dr. Millie Flores Glucose Ql (U) Negative Normal NEGATIVE [facility] Comment on above: Performed By: #### U MICRO, ERUR #### [facility] [address] [place] [address] Dr. Millie Flores Hemoglobin Ql (U) TRACE-INTACT Abnormal NEGATIVE [facility] Comment on above: Performed By: #### U MICRO, ERUR #### [facility] [address] [place] [address] Dr. Millie Flores Ketones Ql (U) TRACE Abnormal NEGATIVE [facility] Comment on above: Performed By: #### U MICRO, ERUR #### [facility] [address] [place] [address] Dr. Millie Flores LEUKOCYTES SMALL Abnormal NEGATIVE [facility] Comment on above: Performed By: #### U MICRO, ERUR #### [facility] [address] [place] [address] Dr. Millie Flores Nitrite Ql (U) Negative Normal NEGATIVE [facility] Comment on above: Performed By: #### U MICRO, ERUR #### [facility] [address] [place] [address] Dr. Millie Flores pH (U) 6.5 [pH] Normal 5-[address] [facility] Comment on above: Performed By: #### U MICRO, ERUR #### [facility] [address] [place] [address] Dr. Millie Flores SPEC GRAVITY 1.020 Normal 1.005-<=1.[address] [facility] Comment on above: Performed By: #### U MICRO, ERUR #### [facility] [address] [place] [address] Dr. Millie Flores UA PROTEIN TRACE Normal NEGATIVE/ TRACE [facility] Comment on above: Performed By: #### U MICRO, ERUR #### [facility] [address] [place] [address] Dr. Millie Flores UR MICRO IND INDICATED Normal [facility] Comment on above: Performed By: #### U MICRO, ERUR #### [facility] [address] [place] [address] Dr. Millie Flores Urobilinogen Qn (U) 1.0 {Robert'U}/dL Normal 0.2 - 1. [address] [facility] Comment on above: Performed By: #### U MICRO, ERUR #### [facility] [address] [place] [address] Dr. Millie Flores LIPASEon 07-29-2021 Lipase [Catalytic activity/Vol] 123.0 U/L Normal 23.0-300.[address] [facility] Comment on above: Performed By: #### C BC #### [facility] [address] [place] [address] Dr. Millie Flores PROF 14(COMP METB)on 021 Albumin [Mass/Vol] 3.9 g/dL Normal 3.5-5.0 [facility] Comment on above: Performed By: #### C BC #### [facility] [address] [place] [address] Dr. Millie Flores Albumin/Globulin [Mass ratio] 1.1 {ratio} Normal [facility] Comment on above: Performed By: #### C BC #### [facility] [address] [place] [address] Dr. Millie Flores ALP [Catalytic activity/Vol] 89 U/L Normal 38-126 [facility] Comment on above: Performed By: #### C BC #### [facility] [address] [address] [address] Millie Flores ALT [Catalytic activity/Vol] 17 U/L Normal 9-52 [facility] Comment on above: Performed By: #### C BC #### [facility] [address] [address] [address] Millie Flores Anion gap [Moles/Vol] 12.3 mmol/L Normal [facility] Comment on above: Performed By: #### C BC #### [facility] [address] [address] [address] Millie Flores AST [Catalytic activity/Vol] 21 U/L Normal 14-36 [facility] Comment on above: Performed By: #### C BC #### [facility] [address] [place] [address] Dr. Millie Flores Bilirubin [Mass/Vol] 0.6 mg/dL Normal 0.2-1.3 [facility] Comment on above: Performed By: #### C BC #### [facility] [address] [place] [address] Dr. Millie Flores Calcium [Mass/Vol] 9.7 mg/dL Normal 8.4-10.[address] [facility] Comment on above: Performed By: #### C BC #### [facility] [address] [place] [address] Dr. Millie Flores Chloride [Moles/Vol] 100 mmol/L Normal 98-107 [facility] Comment on above: Performed By: #### C BC #### [facility] [address] [place] [address] Dr. Millie Flores CO2 [Moles/Vol] 26.7 mmol/L Normal 22.0-30.0 [facility] Comment on above: Performed By: #### C BC #### [facility] [address] [place] [address] Dr. Millie Flores Creatinine [Mass/Vol] 0.95 mg/dL Normal 0.52-1.04 [facility] Comment on above: Performed By: #### C BC #### [facility] [address] [address] [address] Millie Flores EGFR-AF AUSTRIAN >60 Normal >=60 [facility] Comment on above: Performed By: #### C BC #### [facility] [address] [address] [address] Millie Flores EGFR-NON AF AUSTRIAN 58 mL/min/1.73m2 Critically low >=[address] [facility] Comment on above: Performed By: #### C BC #### [facility] [address] [address] [address] Millie Flores Globulin (S) [Mass/Vol] 3.7 g/dL Normal [facility] Comment on above: Performed By: #### C BC #### [facility] [address] [address] [address] Millie Flores Glucose [Mass/Vol] 118 mg/dL Critically high 74-106 [facility] Comment on above: Performed By: #### C BC #### [facility] [address] [address] [address] Millie Flores Potassium [Moles/Vol] 3.0 mmol/L Critically low 3.4-5.[address] [facility] Comment on above: Performed By: #### C BC #### [facility] [address] [address] [address] Millie Flores Protein [Mass/Vol] 7.6 g/dL Normal 6.1-8.2 [facility] Comment on above: Performed By: #### C BC #### [facility] [address] [address] [address] Millie Flores Sodium [Moles/Vol] 136 mmol/L Critically low 137-145 [facility] Comment on above: Performed By: #### C BC #### [facility] [address] [place] [address] Dr. iMllie Flores Urea nitrogen [Mass/Vol] 14.0 mg/dL Normal 7.0-17.[address] [facility] Comment on above: Performed By: #### C BC #### [facility] [address] [place] [address] Dr. Millie Flores Urea nitrogen/Creatinine [Mass ratio] 14.7 mg/mg Normal [facility] Comment on above: Performed By: #### C BC #### [facility] [address] [place] [address] Dr. Millie Flores URINE MICROSCOPIC ONLYon BACTERIA TRACE Abnormal NONE SEEN [facility] Comment on above: Performed By: #### U MICRO, ERUR #### [facility] [address] [place] [address] Dr. Millie Flores Bacteria identified Cx Nom (U) INDICATED Normal [facility] Comment on above: Performed By: #### U MICRO, ERUR #### [facility] [address] [place] [address] Dr. Millie Flores CAST NONE SEEN Normal NONE SEEN [facility] Comment on above: Performed By: #### U MICRO, ERUR #### [facility] [address] [place] [address] Dr. Millie Flores Crystals LM Nom (Urine sed) NONE SEEN Normal NONE SEEN [facility] Comment on above: Performed By: #### U MICRO, ERUR #### [facility] [address] [place] [address] Dr. Millie Flores Epithelial cells LM Ql (Urine sed) FEW Abnormal NONE SEEN /RARE [facility] Comment on above: Performed By: #### U MICRO, ERUR #### [facility] [address] [place] [address] Dr. Millie Flores MUCOUS SMALL Abnormal NONE SEEN [facility] Comment on above: Performed By: #### U MICRO, ERUR #### [facility] [address] [place] [address] Dr. Millie Flores RBC 0-2 Normal 0-2 [facility] Comment on above: Performed By: #### U MICRO, ERUR #### [facility] [address] [place] [address] Dr. Millie Flores WBC 2-5 Abnormal NONE SEEN [facility] Comment on above: Performed By: #### U MICRO, ERUR #### [facility] [address] [place] [address] Dr. Millie Flores CULTURE URINEon 07-21-2021 CULTURE [...] Trimethoprim/Sulfametho xazole <=20 S F Normal [facility] Comment on above: Performed By: #### B MP #### [facility] [address] [place] [address] Dr. Millie Flores CBC AUTO DIFFon 07-19-2021 BASO # 0.1 103/ul Normal 0.0-0.[address] [facility] Comment on above: Performed By: #### C BC #### [facility] [address] [place] [address] Dr. Millie Flores Basophils/100 WBC (Bld) 0.4 % Normal 0.2-2.[address] [facility] Comment on above: Performed By: #### C BC #### [facility] [address] [place] [address] Dr. Millie Flores EO # 0.1 103/ul Normal 0.0-0.7 [facility] Comment on above: Performed By: #### C BC #### [facility] [address] [place] [address] Dr. Millie Flores Eosinophils/100 WBC (Bld) 0.9 % Normal 0.9-7.0 [facility] Comment on above: Performed By: #### C BC #### [facility] [address] [place] [address] Dr. Millie Flores Erythrocyte distribution width (RBC) [Ratio] 13.9 % Normal 11.0-15.0 [facility] Comment on above: Performed By: #### C BC #### [facility] [address] [place] [address] Dr. Millie Flores Hematocrit (Bld) [Volume fraction] 40.9 % Normal 36.0-48.[address] [facility] Comment on above: Performed By: #### C BC #### [facility] [address] [place] [address] Dr. Millei Flores Hemoglobin (Bld) [Mass/Vol] 13.3 g/dL Normal 12.0-16.[address] [facility] Comment on above: Performed By: #### C BC #### [facility] [address] [place] [address] Dr. Millie Flores IG # 0.05 10e3/ul Critically high 0.00-0.03 [facility] Comment on above: Performed By: #### C BC #### [facility] [address] [place] [address] Dr. Millie Flores IG % 0.4 % Normal 0.0-0.[address] [facility] Comment on above: Performed By: #### C BC #### [facility] [address] [place] [address] Dr. Millie Flores LYMPH # 2.7 103/ul Normal 1.2-3.[address] [facility] Comment on above: Performed By: #### C BC #### [facility] [address] [place] [address] Dr. Millie Flores Lymphocytes/100 WBC (Bld) 20.2 % Critically low 20.5-60.[address] [facility] Comment on above: Performed By: #### C BC #### [facility] [address] [place] [address] Dr. Millie Flores MANUAL DIFF REQ NO Normal [facility] Comment on above: Performed By: #### C BC #### [facility] [address] [place] [address] Dr. Millie Flores MCH (RBC) [Entitic mass] 31.0 pg Normal 26.7-34.[address] [facility] Comment on above: Performed By: #### C BC #### [facility] [address] [address] [address] Millie Flores MCHC (RBC) [Mass/Vol] 32.5 g/dL Normal 29.9-35.[address] [facility] Comment on above: Performed By: #### C BC #### [facility] [address] [address] [address] Millie Flores MCV (RBC) [Entitic vol] 95.3 fL Normal 81.0-99.0 [facility] Comment on above: Performed By: #### C BC #### [facility] [address] [address] [address] Millie Flores MONO # 1.5 103/ul Critically high 0.3-0.8 [facility] Comment on above: Performed By: #### C BC #### [facility] [address] [place] [address] Dr. Millie Flores Monocytes/100 WBC (Bld) 11.1 % Normal 1.7-12.[address] [facility] Comment on above: Performed By: #### C BC #### [facility] [address] [address] [address] Millie Flores NEUT # 8.8 103/ul Critically high 1.4-6.5 [facility] Comment on above: Performed By: #### C BC #### [facility] [address] [place] [address] Dr. Millie Flores Neutrophils/100 WBC (Bld) 67.0 % Normal 43.0-75.0 [facility] Comment on above: Performed By: #### C BC #### [facility] [address] [place], [place] [id number] Dr. Millie Flores Platelet mean volume (Bld) [Entitic vol] 10.3 fL Normal 9.5-13.5 [facility] Comment on above: Performed By: #### C BC #### [facility] [address] [place] [address] Dr. Millie Flores PLT 215 103/ul Normal 150-450 [facility] Comment on above: Performed By: #### C BC #### [facility] [address] [place] [address] Dr. Millie Flores RBC 4.29 106/ul Normal 4.20-5.[address] [facility] Comment on above: Performed By: #### C BC #### [facility] [address] [place] [address] Dr. Millie Flores WBC 13.1 103/ul Critically high 4.0-11.0 [facility] Comment on above: Performed By: #### C BC #### [facility] [address] [place] [address] Dr. Millie Flores ER URINE PROFILEon 1 Bilirubin Ql (U) Negative Normal NEGATIVE [facility] Comment on above: Performed By: #### C BC #### [facility] [address] [place] [address] Dr. Millie Flores Clarity (U) CLEAR Normal CLEAR [facility] Comment on above: Performed By: #### C BC #### [facility] [address] [place] [address] Dr. Millie Flores Color (U) LT. YELLOW Normal YELLOW [facility] Comment on above: Performed By: #### C BC #### [facility] [address] [place] [address] Dr. Millie MOELLER A micrscopic examination will be performed if indicated. Normal [facility] Comment on above: Performed By: #### C BC #### [facility] [address] [place] [address] Dr. Millie Flores Glucose Ql (U) Negative Normal NEGATIVE [facility] Comment on above: Performed By: #### C BC #### [facility] [address] [place] [address] Dr. Millie Flores Hemoglobin Ql (U) Negative Normal NEGATIVE [facility] Comment on above: Performed By: #### C BC #### [facility] [address] [place] [address] Dr. Millie Flores Ketones Ql (U) TRACE Abnormal NEGATIVE [facility] Comment on above: Performed By: #### C BC #### [facility] [address] [place] [address] Dr. Millie Flores LEUKOCYTES MODERATE Abnormal NEGATIVE [facility] Comment on above: Performed By: #### C BC #### [facility] [address] [place] [address] Dr. Millie Flores Nitrite Ql (U) Positive Abnormal NEGATIVE [facility] Comment on above: Performed By: #### C BC #### [facility] [address] [place] [address] Dr. Millie Flores pH (U) 7.5 [pH] Normal 5-[address] [facility] Comment on above: Performed By: #### C BC #### [facility] [address] [place] [address] Dr. Millie Flores SPEC GRAVITY 1.015 Normal 1.005-<=1.[address] [facility] Comment on above: Performed By: #### C BC #### [facility] [address] [place] [address] Dr. Millie Flores UA PROTEIN Negative Normal NEGATIVE/ TRACE [facility] Comment on above: Performed By: #### C BC #### [facility] [address] [place] [address] Dr. Millie Flores UR MICRO IND INDICATED Normal [facility] Comment on above: Performed By: #### C BC #### [facility] [address] [place] [address] Dr. Millie Flores Urobilinogen Qn (U) 1.0 {Robert'U}/dL Normal 0.2 - 1. [address] [facility] Comment on above: Performed By: #### C BC #### [facility] [address] [place] [address] Dr. Millie Flores PROF CHEM 8 (BAS METB)on Anion gap [Moles/Vol] 14.8 mmol/L Normal [facility] Comment on above: Performed By: #### B MP #### [facility] [address] [place] [address] Dr. Millie Flores Calcium [Mass/Vol] 9.2 mg/dL Normal 8.4-10.2 [facility] Comment on above: Performed By: #### B MP #### [facility] [address] [address] [address] Millie Flores Chloride [Moles/Vol] 103 mmol/L Normal 98-[address] [facility] Comment on above: Performed By: #### B MP #### [facility] [address] [address] [address] Millie Flores CO2 [Moles/Vol] 24.0 mmol/L Normal 22.0-30.0 [facility] Comment on above: Performed By: #### B MP #### [facility] [address] [address] [address] Millie Flores Creatinine [Mass/Vol] 1.09 mg/dL Critically high 0.52-1.[address] [facility] Comment on above: Performed By: #### B MP #### [facility] [address] [address] [address] Millie Flores EGFR-AF AUSTRIAN 60 mL/min/1.73m2 Normal >=60 [facility] Comment on above: Performed By: #### B MP #### [facility] [address] [place] [address] Dr. Millie Flores EGFR-NON AF AUSTRIAN 49 mL/min/1.73m2 Critically low >=[address] [facility] Comment on above: Performed By: #### B MP #### [facility] [address] [place] [address] [address] Millie Flores Glucose [Mass/Vol] 116 mg/dL Critically high 74-106 [facility] Comment on above: Performed By: #### B MP #### [facility] [address] [place] [address] [address] Millie Flores Potassium [Moles/Vol] 3.8 mmol/L Normal 3.4-5.[address] [facility] Comment on above: Performed By: #### B MP #### [facility] [address] [place] [address] [address] Millie Flores Sodium [Moles/Vol] 138 mmol/L Normal 137-145 [facility] Comment on above: Performed By: #### B MP #### [facility] [address] [place] [address] [address] Millie Flores Urea nitrogen [Mass/Vol] 22.0 mg/dL Critically high 7.0-17.0 [facility] Comment on above: Performed By: #### B MP #### [facility] [address] [place] [address] Dr. Millie Flores Urea nitrogen/Creatinine [Mass ratio] 20.2 mg/mg Normal [facility] Comment on above: Performed By: #### B MP #### [facility] [address] [place] [address] Dr. Mlilie Flores URINE MICROSCOPIC ONLYon BACTERIA LARGE Abnormal NONE SEEN [facility] Comment on above: Performed By: #### C BC #### [facility] [address] [place] [address] Dr. Millie Flores Bacteria identified Cx Nom (U) INDICATED Normal [facility] Comment on above: Performed By: #### C BC #### [facility] [address] [place] [address] Dr. Millie Flores CAST NONE SEEN Normal NONE SEEN [facility] Comment on above: Performed By: #### C BC #### [facility] [address] [place] [address] Dr. Millie Flores Crystals LM Nom (Urine sed) NONE SEEN Normal NONE SEEN [facility] Comment on above: Performed By: #### C BC #### [facility] [address] [place] [address] Dr. Millie Flores Epithelial cells LM Ql (Urine sed) RARE Normal NONE SEEN /RARE [facility] Comment on above: Performed By: #### C BC #### [facility] [address] [place] [address] Dr. Millie Flores MUCOUS NONE SEEN Normal NONE SEEN [facility] Comment on above: Performed By: #### C BC #### [facility] [address] [place] [address] Dr. Millie Flores RBC NONE SEEN Abnormal 0-2 [facility] Comment on above: Performed By: #### C BC #### [facility] [address] [place] [address] [address] Millie Flores WBC 10-20 Abnormal NONE SEEN [facility] Comment on above: Performed By: #### C #### [facility] [address] [place] [id number] Millie Flores XR ABD FLAT_UPon 07-19-2021 [...] HANG MACIAS Date: 2021-07-19 00:50 Normal [facility] XR pre/post mri xrayon 05-08 XR pre/post mri xray [facility] [place] [address] MRI Report Signed Patient: Areli Hawkins MR#: [id number] : 1945 Acct:[id number] Age/Sex: 75 / F ADM Date: 05/08/21 Loc: [facility] Room: Type: [facility] Attending Dr: Nohelia Kline PA-C Ordering Provider: Nohelia GREWAL Date of Service: 05/08/21 MR/MR lumbar spine wo con: R20.2 ([id number]) XR/XR pre/post mri xray: R20.2 Copies to: Nohelia Kline [facility] MR lumbar spine wo con, XR pre/post [...] Emery Shine M.D.05/08/2021 2:52 PM Dictation Location: [place] [address] Transcribed By: [facility] 05/08/21 0056 Dictated By: Emery Shine II, MD 05/08/21 1402 Signed By: 05/08/21 1452 Normal [facility] XR pre/post mri xrayon 02-03 XR pre/post mri xray [facility] [place] [address] [place], [place] [id number] MRI Report Signed Patient: Areli Hawkins MR#: [id number] : 1945 Acct:[id number] Age/Sex: 75 / F ADM Date: 02/03/21 Loc: [facility] Room: Type: [facility] Attending Dr: Moises Miguel MD Ordering Provider: Moises Miguel MD Date of Service: 02/03/21 MR/MR cervical spine wo con: R20.2 PARESTHESIA R29.9 HYPER REFLEXIA M17.12 CERVICAL SPNDY ([id number]) XR/XR pre/post mri xray: C SPINE Copies [...] Allan Salinas M.D.02/03/2021 5:00 PM Dictation Location: [place] [address] Transcribed By: JORGE 02/03/211699 Dictated By: BradAllan Ondina SINGH 02/03/21 165 Signed By: 02/03/211699 [facility] Gastroenterology Office/Clin ic Noteon 09-20-2020 Gastroenterology Office/Clinic [...] Mother. Primary malignant neoplasm of prostate: Father. [facility] Comment on above: Result Comment: Elec tronically Signed By: TEODORO BAÑUELOS, Cristal\.br\Date and Time Signed: 09/20/20 14:17 EST Coding Summary.on 09-06-2020 Coding Summary. CODING DATE: 020 FINAL [facility] STATUS: Home (Routine [place]) PAYOR: Medicare ADMIT DX: REASON FOR VISIT [...] Tatianna Burris Date Saved: 09/06/2020 08:17 am [facility] Priority Order-Blair 2019 Priority Order-STAT Comment Invalid Interpretation Code [facility] Comment on above: Result Comment: Rece ived Performed at: [facility] [address] [place], [place] [id number] MD Hilda Palmer Performed By: #### S ARS-CoV-2, CHETAN, [id number] ####[facility] [address] [place] [address] SARS-CoV-2, NAAon 09-02-2020 SARS-CoV-2 (COVID-19) RNA CHETAN+probe Ql (Resp) Not detected Invalid Interpretation Code Not Detected [facility] Comment on above: Result Comment: This nucleic acid amplification test was developed and its performance characteristics determined by [employer]. Nucleic acid amplification tests include PCR and [...] detected) result in this assay. Performed at: [facility] [address] [place], [place] [id number] MD Hilda Palmer Performed By: #### S ARS-CoV-2, CHETAN, [id number] #### [facility] [address] [place] [address] Consent for Procedure/Surger yon 08-26-2020 Consent for Procedure/Surgery [id number] D:127 Normal [facility] Physician Orderon 08-26-2020 Physician Order [id number] CD:127 Normal [facility] Ambulatory Clinical Summaryo n 08-25-2020 Ambulatory Clinical Summary {[id number] Normal [facility] Patient Educationon 08-25-20 Patient Education Family Medicine Colonoscopy A colonoscopy [...] ? Medicines taken, including vitamins, herbs, eyedrops, ugbz-dut-svpyneb medicines, and creams. ? Use of steroids [...] medicines have worn off. ? Only take dzpk-rhw-kmnwino or prescription medicines for pain, discomfort, or [...] Document Reviewed: 04/21/2009 ExitCare? Patient Information ?2014 [employer]. Heartburn Heartburn is a painful, burning sensation [...] caregiver may tell you to use certain tumb-cfn-jqmszqe medicines (antacids, acid reducers) for mild heartburn. [...] not impro (more content not included)... Normal [facility] Physician Orderon 08-25-2020 Physician Order [id number] D:127 [facility] Physician Referralon 020 Physician Referral [id number] D:127 [facility] Vital Signs Date Time Vital Sign Value Performing Clinician Faci [facility] 10-23-2023 11:00-0500 Body height 162.56 cm Anurag yuilop SL Other [facility] Other 10-23-2023 11:00-0500 Body mass index (BMI) [Ratio] 42.84 kg/m2 Anurag yuilop SL Other [facility] Other 10-23-2023 11:00-0500 Body weight 113.22 kg Anurag yuilop SL Other [facility] Other 10-23-2023 11:00-0500 Diastolic blood pressure 67 mm[Hg] Anurag yuilop SL Other [facility] Other 10-23-2023 11:00-0500 Respiratory rate 16 /min Anurag yuilop SL Other [facility] Other 10-23-2023 11:00-0500 Systolic blood pressure 133 mm[Hg] Anurag Ball Other [facility] Other 08-27-2023 14:00-0500 Body height 162.56 cm Anurag Ball Other [facility] Other 08-27-2023 14:00-0500 Body mass index (BMI) [Ratio] 42.36 kg/m2 Anurag Ball Other [facility] Other 08-27-2023 14:00-0500 Body weight 111.95 kg Anurag Ball Other [facility] Other 08-27-2023 14:00-0500 Diastolic blood pressure 79 mm[Hg] Anurag Ball Other [facility] Other 08-27-2023 14:00-0500 Respiratory rate 20 /min Anurag Ball Other [facility] Other 08-27-2023 14:00-0500 Systolic blood pressure 142 mm[Hg] Anurag Ball Other [facility] Other 05-29-2023 10:30-0400 Body height 162.56 cm Anurag Ball Other [facility] Other 05-29-2023 10:30-0400 Body mass index (BMI) [Ratio] 41.23 kg/m2 Anurag Ball Other [facility] Other 05-29-2023 10:30-0400 Body weight 108.95 kg Anurag Ball Other [facility] Other 05-29-2023 10:30-0400 Diastolic blood pressure 76 mm[Hg] Anurag Ball Other [facility] Other 05-29-2023 10:30-0400 Respiratory rate 12 /min Anurag Ball Other [facility] Other 05-29-2023 10:30-0400 Systolic blood pressure 123 mm[Hg] Aunrag Ball Other [facility] Other 05-03-2023 10:00-0400 Body height 162.56 cm Naurag Ball Other [facility] Other 05-03-2023 10:00-0400 Body mass index (BMI) [Ratio] 40.3 kg/m2 Anurag Ball Other [facility] Other 05-03-2023 10:00-0400 Body weight 106.51 kg Anurag Ball Other [facility] Other 05-03-2023 10:00-0400 Diastolic blood pressure 75 mm[Hg] Anurag Ball Other [facility] Other 05-03-2023 10:00-0400 Respiratory rate 12 /min Anurag Ball Other [facility] Other 05-03-2023 10:00-0400 Systolic blood pressure 120 mm[Hg] Anurag Ball Other [facility] Other 01-16-2022 11:55-0400 Body height 162.6 cm Marie Lea MD Work Phone: [facility] 01-16-2022 11:55-0400 Body weight 95.25 kg Marie Lea MD Work Phone: [facility] 01-16-2022 11:55-0400 Diastolic blood pressure 62 mm[Hg] Marie Lea MD Work Phone: [facility] 01-16-2022 11:55-0400 Heart rate 64 /min Marie Lea MD Work Phone: [facility] 01-16-2022 11:55-0400 Systolic blood pressure 150 mm[Hg] Marie Lea MD Work Phone: [facility] 10-05-2021 11:53-0500 Body height 162.56 cm Anurag E Ball Work Phone: [facility] [address] [place] Work Phone: 10-05-2021 11:53-0500 Body mass index (BMI) [Ratio] 34.67 kg/m2 Anurag E Ball Work Phone: [facility] [address] [place] Work Phone: 10-05-2021 11:53-0500 Body surface area Derived from formula 1.96 m2 Anurag E Ball Work Phone: [facility] [address] [place] Work Phone: 10-05-2021 11:53-0500 Body weight 91.63 kg Anurag E Ball Work Phone: [facility] [address] [place] Work Phone: 10-05-2021 11:53-0500 Diastolic blood pressure 80 mm[Hg] Anurag E Ball Work Phone: [facility] [address] [place] Work Phone: 10-05-2021 11:53-0500 Heart rate 69 /min Anurag E Ball Work Phone: [facility] [address] [place] Work Phone: 10-05-2021 11:53-0500 Systolic blood pressure 127 mm[Hg] Anurag E Ball Work Phone: [facility] [address] [place] Work Phone: 06-22-2021 11:00-0400 Body height 162.56 cm Carlos Gong Other [email or web address] Other 06-22-2021 11:00-0400 Body mass index (BMI) [Ratio] 35.18 kg/m2 Carlos Gong Other [facility] Other 06-22-2021 11:00-0400 Body weight 92.99 kg Carlos Gong Other [facility] Other 06-22-2021 11:00-0400 Diastolic blood pressure 84 mm[Hg] Carlos Gong Other [facility] Other 06-22-2021 11:00-0400 Respiratory rate 18 /min Carlos Gong Other [facility] Other 06-22-2021 11:00-0400 Systolic blood pressure 138 mm[Hg] Carlos Gong Other [facility] Other Encounters Encounter Date Encounter Type Care Provider Facility Start: 10-23-2023 End: 10-23-2023 ambulatory Anurag Bolton Other [facility] Other Start: 10-23-2023 Patient encounter procedure Anurag Bolton [facility] Start: 10-14-2023 End: 10-15-2023 ambulatory Bryant Richardson MD Facility: [facility] Start: 10-07-2023 End: 2023 ambulatory Bryant Richardson MD Facility: [facility] Start: 10-01-2023 End: 10-01-2023 ambulatory Anurag Bolton Other [facility] Other Start: 10-01-2023 Telephone encounter Anurag Mendez [facility] Start: 09-10-2023 End: 09-10-2023 ambulatory Anurag Bolton Other [facility] Other Start: 09-10-2023 Telephone encounter Anurag Mendez [facility] Start: 08-28-2023 End: 08-28-2023 ambulatory Anurag Oj Other [facility] Other Start: 08-28-2023 Telephone encounter Anurag Bolton [facility] Start: 08-27-2023 End: 08-27-2023 ambulatory Anurag Ball Other [facility] Other Start: 08-27-2023 Office outpatient visit 15 minutes Anurag Ball [facility] Start: 08-06-2023 End: 08-06-2023 ambulatory Anurag Ball Other [facility] Other Start: 08-06-2023 Nursing evaluation o f patient and report Anurag Bolton [facility] Start: 06-10-2023 End: 06-10-2023 ambulatory Anurag Ball Other [facility] Other Start: 06-10-2023 Telephone encounter Anurag Bolton [facility] Start: 05-29-2023 End: 05-29-2023 ambulatory Anurag Ball Other [facility] Other Start: 05-29-2023 Office outpatient visit 15 minutes Anurag Ball [facility] Start: 05-06-2023 End: 05-06-2023 ambulatory Anurag Ball Other [facility] Other Start: 05-06-2023 Telephone encounter Anurag Bolton [facility] Start: 05-03-2023 End: 05-03-2023 ambulatory Anurag Ball Other [facility] Other Start: 05-03-2023 Office outpatient visit 25 minutes Anurag Ball [facility] Start: 04-25-2023 End: 04-25-2023 ambulatory Anurag Ball Other [facility] Other Start: 04-25-2023 Telephone encounter Anurag Ball [facility] Start: 02-01-2022 Telephone encounter Sabas Lea MD Work Phone: Neurology Comment on above: Results Start: 01-16-2022 End: 01-16-2022 Patient encounter procedure Marie Lea MD Work Phone: Neurology Comment on above: 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); Abnormal finding of blood chemistry, unspecified Start: 12-28-2021 End: 12-28-2021 ambulatory Carlos Gong Other [facility] [employer] Other Start: 12-28-2021 Office outpatient visit 15 minutes Carlos Gong [facility] Start: 12-23-2021 End: 12-23-2021 Adult health examination Anurag Bolton Other [facility] [employer] Other Start: 10-05-2021 Office outpatient visit 25 minutes Anurag Bolton Work Phone: [facility] [address] [place] Work Phone: Start: 09-07-2021 End: 09-08-[address] ROSI GONG Facility:[facility] Start: 08-30-2021 End: 08-30-[address] ROSI GONG Facility:[facility] Start: 07-29-2021 End: 07-31-2021 Evaluation and management of inpatient DR YARITZA COOK Facility:[facility] Start: 07-19-2021 End: 07-19-[address] ROSI GONG Facility:[facility] Start: 06-22-2021 Office outpatient ne w 45 minutes Carlos Gong [facility] Start: 09-22-2020 End: 09-23-[address] ROSI GONG Facility:[facility] Procedures Date Procedure Procedure Detail Performing Clinician Start: 01-11-2022 Adult depression scr eening assessment Marie Lea MD Work Phone: Start: 04-08-2015 End: 12-23-2021 Screening mammography Anurag Bolton Other Start: 05-04-2014 End: 12-23-2021 General examination of patient Anruag Bolton Other Hernia repair Anurag moy Work Phone: Hysterectomy Anurag Bolton Work Phone: Screening for malign ant neoplasm of breast Anurag Bolton Other Small intestine excision Tay Bolton Work Phone: Tonsillectomy Anurag moy Work Phone: Plan of Treatment Date Care Activity Detail Author Start: 01-16-2025 DIABETES SCREEN DIABETES SCREEN [facility] Start: 01-11-2023 Adult depression screening assessment DEPRESSION SCREENING [facility] Start: 01-16-2022 End: 03-18-2022 CRYOGLOBULIN, QUAL, REFLEX TO CASSI AND IGG,A,M [facility] Work Phone: Comment on above: Expected: 01/16/2022 , Expires: 03/18/2022 Start: 09-23-2021 ADVANCE DIRECTIVE DISCUSSION ADVANCE DIRECTIVE DISCUSSION [facility] Start: 2012 BONE DENSITY BONE DENSITY [facility] Start: 2012 PNEUMOVAX AGE 65 AND OVER WITH 5YR LOOKBACK (#1) PNEUMOVAX AGE 65 AND OVER WITH 5YR LOOKBACK (#1) [facility] Start: 1997 SHINGRIX VACCINE (1 of 2) SHINGRIX VACCINE (1 of 2) [facility] Start: 1992 COLOGUARD (FIT-DNA) COLOGUARD (FIT-D NA) [facility] Start: 1992 Colonoscopy COLONOSCOPY [facility] Start: 1992 COLORECTAL CANCER SCREENING COLORECTAL CANCER SCREENING [facility] Start: [address] COLONOGRAPHY [facility] Start: 1992 FECAL OCCULT BLOOD FECAL OCCULT BLOO D [facility] Start: 1992 LIPID SCREEN LIPID SCREEN [facility] Start: 1992 SIGMOIDOSCOPY SIGMOIDOSCOPY [facility] Start: 1987 Mammography MAMMOGRAM [facility] Start: 1966 Urine microalbumin profile DTAP,TDAP,TD (1 - Tdap) [facility] Start: 1965 HEPATITIS C SCREENING HEPATITIS C SC ALFONSO [facility] Immunizations Immunization Date Immunization Notes Care Provider Dwight recinos 08-06-2023 influenza, high dose seasonal, preservative-free Anurag Bolton Other [facility] Other 08-07-2022 COVID-19 Pfizer (Pediatric) Anurag Bolton Other [facility] Other 08-07-2022 influenza virus vaccine, split virus (incl. purified surface antigen) Anurag Bolton Other [facility] Other 01-30-2022 COVID-19 Vaccine Pfi zer - Documentation Purposes Only Anurag Bolton Other [facility] Other 08-08-2021 Fluzone High-Dose Quadrivalent 0.7 ML Intramuscular Suspension Prefilled Syringe Anurag Bolton Work Phone: [facility] [address] [place] Work Phone: 06-27-2021 Moderna COVID-19 Vaccine 100 MCG/0.5ML Intramuscular Suspension Anurag Bolton Work Phone: [facility] [address] [place] Work Phone: 06-20-2021 Pfizer-BioNTech COVID-19 Vacc 30 MCG/0.3ML Intramuscular Suspension Anurag Bolton Work Phone: [facility] [address] [place] Work Phone: 11-17-2020 Pfizer-BioNTech COVID-19 Vacc 30 MCG/0.3ML Intramuscular Suspension Anurag Bolton Work Phone: [facility] [address] [place] Work Phone: 10-27-2020 Pfizer-BioNTech COVID-19 Vacc 30 MCG/0.3ML Intramuscular Suspension Anurag oBlton Work Phone: [facility] [address] [place] Work Phone: 06-28-2020 Fluad Quadrivalent 0 .5 ML Intramuscular Prefilled Syringe Anurag Bolton Work Phone: [facility] [address] [place] Work Phone: 07-07-2019 influenza, high dose seasonal, preservative-free Anurag Bolton Work Phone: [facility] [address] [place] Work Phone: 07-15-2018 influenza, high dose seasonal, preservative-free Anurag Bolton Work Phone: [facility] [address] [place] Work Phone: 07-23-2017 influenza, high dose seasonal, preservative-free Anurag Bolton Work Phone: [place] [address] [place] Work Phone: 02-05-2017 pneumococcal conjuga te vaccine, 13 valent Anurag Bolton Work Phone: [address] Work Phone: 02-05-2017 pneumococcal Conjuga te, unspecified formulation; Translations: [Need for prophylactic vaccination against Streptococcus pneumoniae (pneumococcus)] Anurag Bolton Other [facility] [employer] Other 07-05-2016 influenza virus vaccine, split virus (incl. purified surface antigen) Anurag Bolton Other [facility] Other 07-05-2016 influenza, high dose seasonal, preservative-free Anurag Bolton Work Phone: [place] [address] [place] Work Phone: 09-23-2015 pneumococcal polysaccharide vaccine, 23 valent Anurag Bolton Work Phone: [facility] [address] [place] Work Phone: 08-30-2015 influenza, seasonal, injectable, preservative free Anurag E Oj Work Phone: [facility] [address] [place] Work Phone: 07-05-2014 influenza, high dose seasonal, preservative-free [facility]urag Bolton [facility] [place] Work Phone: 02-02-2013 pneumococcal polysaccharide vaccine, 23 valent Anurag Bolton Work Phone: [facility] [place] Work Phone: Payers Date Payer Category Payer Medicare 2023 Unknown 2020 Unknown MMO MMO MEDICARE SUPPLEMENT [id number] 2020-Present [phone] [address] [place] [address] Indemnity [id number] 2012 Medicare MEDICARE MEDICAR E A AND B [id number] 2012-Present [phone] [address] [address] [place] [address] Medicare [id number] 1959 Medicare [id number] 1959 Unknown [id number] 1945 Unknown [id number] 1945 Unknown [id number] 1945 Unknown [id number] 1945 Unknown [id number] 1945 Unknown [id number] 1945 Unknown [id number] 1945 Unknown [id number] Social History Date Type Detail Facility Daily caffeine consumption Daily caffeine consumption [facility] Other Comment on above: 3 diet pops daily.; Start: 01-16-2022 Tobacco smoking stat [facility] Never smoked tobacco [facility] Start: 01-16-2022 Tobacco use and exposure Smokeless tobacco non-user [facility] Start: 01-16-2022 Alcohol intake Ex-drinker (finding) [facility] Start: 1945 Sex Assigned At Female [facility] Start: 12-31-2021 End: 01-10-2022 Exposure to SARS-CoV-2 (event) Not sure [facility] Sex Assigned At Sex Assigned At Bir th [facility] Other Clinical Notes 06-22-2021 to 10-23-2023 Note Date & Type Note Facility 10-23-2023 Evaluation note Encounter Date Diagnosis Assessment Notes Sep, Medicare annual wellness visit, subsequent (ICD-10 - Z00.00) Personalized health advice was given to the beneficiary including a written plan for screenings discussed and provided. Advanced care planning reviewed and/or information given as requested. Additional counseling was provided here today in regards to, [ ]. The above visit was performed by [ ], under direct supervision of [ ]. Document reviewed and amended by provider signed below. Sep, Primary hypertension (ICD-10 - I10) This patient is instructed to consume a healthy, low-fat, low-salt diet. They are also encouraged to continue exercise to achieve/maintai n a normal BMI. Patient is instructed on home BP measurements: - rest for 5 minutes w/o talking.- positioned w/ feet on floor and arm supported.- average best 2/3 readings w/ goal < 135/85.- update office w/ home readings in 2 weeks. Sep, Lumbar spondylosis (ICD-10 - M47.816) The patient is instructed to avoid bending, twisting or lifting. They are to use intermittent heat and ice as needed. They may schedule a massage or gentle manipulation. They may safely use Tylenol as needed. f/u w/ pain management for injections. Sep, Morbid (severe) obesity due to excess calories (ICD-10 - E66.01) This patient has been instructed on a low-fat, high-fiber diet. They are instructed to reduce calories, portion sizes and snacks. It is recommended that they exercise for 30 minutes, 3-5 times weekly. Sep, Body mass index [BMI] 40.0-44.9, adult (ICD-10 - Z68.41) Sep, Moderate episode of recurrent major depressive disorder (ICD-10 - F33.1) Healthy diet and exercise. Sep, Screening mammogram for breast cancer (ICD-10 - Z12.31) Instructed patient on monthly SBE and yearly mammograms. Sep, Anemia, unspecified type (ICD-10 - D64.9) Check labs: CBC, Fe, B12, FA Sep, IFG (impaired fasting glucose) (ICD-10 - R73.01) Healthy diet and exercise Instructed on weight loss. A1C due. Sep, Fatigue, unspecified type (ICD-10 - R53.83) Suggest to check labs: CBC, TSH, A1C [facility] Other 01-09-2024 Evaluation note* Encounter Date Diagnosis Assessment Notes Treatment Notes Treatment Clinical Notes Sep, Primary hypertension (ICD-10 - I10) [facility] Other 12-05-2023 Evaluation note* Encounter Date Diagnosis [...] index [BMI] 40.0-44.9, adult (ICD-10 - Z68.41) [facility] Other 12-05-2023 Evaluation note* Encounter Date Diagnosis [...] [BMI ] 40.0-44.9, adult (ICD-10 - Z68.41) [facility] Other 09-06-2023 Evaluation note* Encounter Date Diagnosis [...] as needed. Continue OTC treatment for now. [facility] Other 08-11-2023 Evaluation note* Encounter Date Diagnosis [...] (ICD-10 - R79.89) r/o DVT w/ venous Intacct Other 05-12-2022 Miscellaneous Notes* Telephone Encounter - [...] relief. Marie Lea MD [facility]* Patient Instructions* Marie Lea MD [...] it on your ownagain. documented in this encounterN[facility]22 NoteHNO ID: [id number] Author: Samantha Lopez MD Service: ? 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 No* known history of neuromuscular disease [...] for reported prolon (more content not included)... [facility]04-26-[facility]22 History of Present illness Narrative* Samantha Lopez MD - 01/16/2022 1:00 PM EDT Images from the original note were not included. [facility] New Patient Evaluation Consulting Provider: Anurag Bolton ([facility]) [address] [place] [address] Consultation requested by the above doctor for [...] a workup by a local neurologist in [facility], which performed MR of the lumbar [...] raising-bilaterally negative COORDINATION/GAIT: Normal finger-to- nose-finger and itve-fx-enww bilaterally. Intact rapid alternating movements bilaterally. Gait [...] will be communicated to the patient via telephone/dakickhart. Patient to call office if not contacted after expected testing turnaround time. To aid with communication, patients (and primary care physicians) can sign up for [employer] (or [employer]), which allows online appointment scheduling, transmission of labs results and chart notes, andsecure email communication. To establish either account, visit [email or web address]. Marie Lea MD Neuromuscular Medicine (NM) Fellow In the service of Dr. Samantha Lopez (NM Staff) [facility] STAFF PHYSICIAN NOTE OF PERSONAL INVOLVEMENT [...] Lopez MD cc: Referring provider: Anurag Bolton ([facility]) [address] [place] [id number] Are[address] Cookarnol [phone] [place] [id number] documented in this encounterNation[facility]04-07-[facility] Evaluation note* Encounter Date Diagnosis Assessment [...] re-evaluation. Dec, Sensory neuropathy (ICD-10 - G62.9) [facility] Other 11-06-2021 NoteCONSULTATION Consultation Date: 07/30/2021 REASON [...] repeat urine cu (more content not included)...[id number] * Encounter Date Diagnosis Assessment [...] May, Post menopausal syndrome (ICD-10 - N95.1) [facility] Other evaluation note* Diagnosis Hereditary and idiopathic peripheral neuropathy- Primary Unspecified hereditary and idiopathic peripheral neuropathy Abnormal finding of blood chemistry, unspecified documented in this encounter [facility] note* Diagnosis Abnormality of gait- Primary documented in this encounter [facility] noteNo InformationNortClarion [facility] [email or web address] Other History general Narrative - Reported* Type Description Date Medical History Uterine Cancer Medical History Hypertension Medical History Obesity Medical History Depression Medical History Anxiety Medical History cholecystecomy Surgical History cholecystectomy Surgical History total hysterectomy Hospitalization History SEE ABOVE [facility] Other History general Narrative - Reported* Type Description Date Medical History Uterine Cancer Medical History Hypertension Medical History Obesity Medical History Depression Medical History Anxiety Medical History cholecystecomy Surgical History cholecystectomy Surgical History total hysterectomy Surgical History bowel surgery Hospitalization History SEE ABOVE [facility] Other History general Narrative - Reported* Type Description Date Medical History Uterine Cancer Medical History Hypertension Medical History Obesity Medical History Depression Medical History Anxiety Medical History cholecystecomy Surgical History Problem Title : CHOL ECYSTECTOMY (71226), Problem Status : Active, Surgical History Problem Title : EXPL ORATORY LAPAROTOMY WITH LYSIS OF ADHESIONS (97952), Problem Status : Active, Surgical History Problem [...] BSO (TOTAL ABDOMINAL HYSTERECTOMY AND BILATERAL SALPINGO-OOPHORECTOMY) (63284), Problem Status : Active, Hospitalization History SEE ABOVE [facility] Other Reason for referral (narrative)* Reason Referral for left si ded low back pain and left hip pain Diagnosis 1 Acute left-sided low back pain without sciatica (M54.50) Diagnosis 2 Primary osteoarthrit is of left hip (M16.12) Referral Organization [facility] Oj tamayo Referring Provider First Name Anurag Referring Provider Last Name Oj Referring Provider Specialty Internal Me sera Referred Organization [facility] Referred Address [address], [place],[address] Referred Provider Specialty Pain Medicin e Referral [...] XR of lumbar spine and left hip [facility] Other Summary Purpose Family History Unknown Family [...] for follow-up of a hospitalization for D/C [facility] 08/09/2021. * Patient is in the office for the first time after being seen in consultation at [facility] last month for an episode of atrial [...] content) DATE CREATED AUTHOR 08/02/2021 [facility] DATE CREATED AUTHOR AUTHOR'S ORGANIZ ATION 09/13/2021 [facility] DATE CREATED AUTHOR AUTHOR'S ORGANIZ ATION 10/06/2021 [facility] DATE CREATED AUTHOR AUTHOR'S ORGANIZ ATION 11/10/2021 [facility] DATE CREATED AUTHOR AUTHOR'S ORGANIZ ATION 02/03/[address] [facility] DATE CREATED AUTHOR AUTHOR'S ORGANIZ ATION 10/18/2023 [facility] Source Comments (unrecognize d section and content) In the event this informatio n is protected by the Federal Confidentiality of Alcohol and Drug Abuse Patient Records regulations: The Federal rules restrict any use of the information to criminally investigate or prosecute any alcohol or drug abuse patient.[facility] HospitalIn the event this information is protected by the Federal Confidentiality of Alcohol and Drug Abuse Patient Records regulations: The Federal rules restrict any use of the information to criminally investigate or prosecute any alcohol or drug abuse patient.[facility] Reason for Visit (unrecogniz ed section and content) wellness Reason Comments New Patient Reason Comments Results Care Teams (unrecognized sec tion and content) Strategic Sourcing Manager Relationship Specialty Start Date End Date Anurag Bolton, DO [address] [place] [facility] [address] Physician Internal Medicine 01/10/22 Strategic Sourcing Manager Relationship Specialty Start Date End Date Anurag Bolton, DO [address] [facility] [place] [place] [address] Physician Internal Medicine 01/10/22 FOR RECORDS [...] BE BASED ON THE PRIMARY CLINICAL RECORDS. [facility] provides no warranty or guarantee of the accuracy or completeness of information in this document.
[2023-11-04 08:14] VITALS: BP 161/93; PULSE 87; RESP 16; TEMP 36.2; O2SAT 95
[2023-11-04 08:55] VITALS: BP 152/78; BP 162/77; PULSE 94; PULSE 96; RESP 18; O2SAT 94; O2SAT 98
[2023-11-04] MEDS: TRIAMCINOLONE ACETONIDE 40 MG/ML VIAL INJ (08:55)
[2023-11-04] MEDS: IOHEXOL 240 MG/ML - 10 ML VIAL INJ (08:55)
[2023-11-04] MEDS: BUPIVACAINE HCL 0.25% PF 25 MG/10 ML VIAL 2 ML INJ (08:55)
[2023-11-04] MEDS: LIDOCAINE HCL 2% PF 100 MG/5 ML VIAL 1.5 ML INJ (08:55)
--- NOTE | 2023-11-04 08:59 | P.ON_ITS ---
Date of procedure: 11/04/23 Pre-op diagnosis: Left sacroiliitis Post-op diagnosis: same as pre-op Procedure: Procedure: Left block of the nerve innervating the sacroiliac joint Medications: Bupivacaine 0.25% 3cc, kenalog 40mg After informed consent was obtained, the patient was brought to the medical procedure unit and placed in the prone position, when a timeout was completed verifying correct patient, procedure, site, positioning, implant, and/or special equipment.? The skin overlying the area was prepped and draped in standard sterile fashion using alcohol.? A 25-gauge needle was inserted towards the superior gluteal nerve innervating the left sacroiliac joint under direct fluoroscopic imaging.? Needle tip was advanced until the nerve was encountered.? We instilled a total of 1 mL of solution. Subsequently, the dorsal rami of L5, S1, and S2 were approached, and the procedure completed in the same fashion.? Postoperatively needles were removed.? The patient tolerated the procedure well without complication.? The patient reported reduction in pain symptoms postop eratively. Anesthesia: Local Surgeon: Bryant Richardson Pathology: none sent Condition: stable Disposition: no change
== END 2023-11-04 09:02 | disposition home or self-care (01) ==
PROVIDERS: PCP Internal Medicine; Visit Provider Anesthesiology
DX: M46.1 Sacroiliitis, not elsewhere classified (principal)
CPT/HCPCS: 27096; J0665; J3301; Q9966

== ENCOUNTER 2023-11-14 10:57 | Outpatient (OUT) | payer MEDICARE, OTHER, SELFPAY ==
--- OUTSIDE RECORDS SUMMARY | 2023-11-14 11:06 | XMS_ITS | CCD ---
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 Name Role Phone BELTRAN, DR ROSI Thornton [...] physicia Propensity to adverse reactions 8 Comment:Done Bestowed Other (1 source) Allergies Reconciled Propensity to adverse reactions Unknown Bestowed Other Medications Current Medications Medication Drug Class(es) [...] Oral daily for 30 *Pick strength-form from [employer] for eRX* Feb, Active Start: 12-08-2021 take [...] times daily for 30 *Pick strength-form from [employer] for eRX* Dec, Active Completed/Discontinued Medications Medication [...] hip] Chronic Other aftercare (1 source) 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 No M protein is identified. [facility] Staff Review (MPA) Reviewed by Lilian Pizarro M.D., Ph.D [facility] METHYLMALONIC ACIDon 022 Methylmalonate [Moles/Vol] 216 nmol/L 79 - 376 nmol/L [facility] RONNIE BY IFA WITH REFLEXon Nuclear Ab IF (S) [Titer] Negative Negative [facility] COPPER BLOODon 01-17-2022 Copper [Mass/Vol] 94 ug/dL 80 - 155 ug/dL [facility] HGB A1Con 01-17-2022 Average glucose Estimated from glycated hemoglobin (Bld) [Mass/Vol] 100 mg/dL [facility] HbA1c (Bld) [Mass fraction] 5.1 % 4.3 - 5.6 % [facility] RONNIE BY IFA WITH REFLEXon Nuclear Ab IF (S) [Titer] Negative Normal Negative [facility] Comment on above: Order Comment: Speci men Type: BLOOD SPECIMEN Ordering Facility: [facility] Address: [address] [place] [address] Result Comment: Anti -nuclear antibody test is used as an aid in diagnosis of systemic autoimmune diseases. Where positive and clinically warranted, follow-up using disease-specific testing is recommended. Low positive titers are not uncommon with advanced age, certain chronic infections, and malignancies among others. Test methodology: Indirect fluorescence immunoassay (IFA) using HEp-2 cells. Performed By: #### A CONNIE, IFESC #### [facility] CLIA [id number] [address] [place] [address] [place] C-REACTIVE PROTEIN (CRP)on 0 01-16-2022 CRP [Mass/Vol] mg/L <0.9 mg/dL [facility] CNOVon 01-16-2022 CNOV Office Visit (STEVENMMN ) ARELI HAWKINS ([id number]) 1945 F Date Time Provider Department 01/16/22 1:00 PM MARIE LEA During your visit today, we recorded the following information about you: Pulse Blood pressure Weight Height 64/minute 150/62 95.3 kg 1.626 m Samantha Lopez MD 01/22/2022 3:56 PM Signed [facility] New Patient Evaluation Consulting Provider: Anurag Wahl) [address] [facility] [address] Consultation requested by the above doctor for [...] a workup by a local neurologist in [facility], which performed MR of the lumbar [...] 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 ancestry. No* known history of neuromuscular [...] of incon (more content not included)... Normal [facility] COPPER BLOODon 01-16-2022 Copper [Mass/Vol] 94 ug/dL Normal 80-155 [facility] Comment on above: Order Comment: Speci men Type: BLOOD SPECIMEN Ordering Facility: [facility] Address: [address] [place] [phone] Result Comment: This test was developed and its performance characteristics determined by [facility]'s [facility] Pathology and Laboratory Medicine [place] (RT-PLMI). It has not been cleared or approved by the FDA. RT-PLWY is regulated under CLIA as qualified to perform high-complexity testing. This test is used for clinical purposes. It should not be regarded as investigational or for research. Performed By: #### A LUIS F ROSALES #### [facility] CLIA [id number] [address] [place] [address] [place] CRP SerPl-mCncon 01-16-2022 CRP [Mass/Vol] mg/L Normal <0.9 [facility] Comment on above: Order Comment: Speci men Type: BLOOD SPECIMEN Ordering Facility: [facility] Address: [address] [place] [address] Performed By: #### 3 016-3, B12, 1987- #### [facility] CLIA [id number] [address] [place] [address] [place] CRYOGLOBULIN, QUAL, REFLEX T O CASSI AND IGG,A,Mon 01-16-2022 CRYOGLOBULIN, QUALITATIVE NEG 72Hour Normal -72Hour [facility] Comment on above: Order Comment: Spectommy castorena Type: BLOOD SPECIMEN Ordering Facility: [facility] Address: [address] [place] [address] Result Comment: This test was developed and its performance characteristics determined by [employer]. It has not been cleared or approved by the US Food and Drug Administration. This test was performed in a CLIA certified laboratory and is intended for clinical purposes. Performed By: [facility] [address] [place] [address] Teacher Of Gifted Students: Hilary Mariano MD Performed By: #### A LUIS F ROSALES #### [facility] CLIA [id number] [address] [place] [address] [place] ESR Westergren method (Bld) [Velocity]on 01-16-2022 ESR (Bld) [Velocity] 8 mm/h 0 - 20 mm/hr [facility] ESR (Bld) [Velocity] 8 mm/h Normal 0-20 [facility] Comment on above: Order Comment: Martha castorena Type: BLOOD SPECIMEN Ordering Facility: [facility] Address: [address] [place] [address] Performed By: #### 4 537-7 #### [facility] CLIA [id number] [address] [place] [address] OF [place] HGB A1Con 01-16-2022 Average glucose Estimated from glycated hemoglobin (Bld) [Mass/Vol] 100 mg/dL Normal [facility] Comment on above: Order Comment: Martha castorena Type: BLOOD SPECIMEN Ordering Facility: [facility] Address: [address] [place] [address] Result Comment: eAG: (Estimated average glucose) is a calculated value from HgbA1c and is specialty sales representative of the average blood glucose level in the last 2-3 month period. Performed By: #### H BA1C #### [facility] CLIA [id number] [address] [place] [address] STATES [facility] HbA1c (Bld) [Mass fraction] 5.1 % Normal 4.3-5.6 [facility] Comment on above: Order Comment: Martha castorena Type: BLOOD SPECIMEN Ordering Facility: [facility] Address: [address] [place] [address] Result Comment: Amer ican Diabetes Association guidelines indicate that patients with HgbA1c in the range 5.7-6.4% are at increased risk for development of diabetes, and intervention by lifestyle modification may be beneficial. HgbA1c greater or equal to 6.5% is considered diagnostic of diabetes. Performed By: #### H BA1C #### [facility] CLIA [id number] [address] [place] [address] [place] IMMUNOFIXATION SCREEN, SERUM on 01-16-2022 MPA RESULT No M protein is identified. Normal No M protein is identified. [facility] Comment on above: Order Comment: Martha castorena Type: BLOOD SPECIMEN Ordering Facility: [facility] Address: [address] [place] [address] Performed By: #### A CONNIE IFES #### [facility] [place] [id number] [address] [place] [address] OF [facility] STAFF REVIEW (MPA) Reviewed by Lilian Pizarro M.D., Ph.D Normal [facility] Comment on above: Order Comment: Speci men Type: BLOOD SPECIMEN Ordering Facility: [facility] Address: [address] [place] [address] Performed By: #### A CONNIE IFES #### [facility] [place] [id number] [address] [place] [address] [place] KAPPA/CASTILLO,FREE,SERon 2021 Immunoglobulin light chains.kappa.free (S) [Mass/Vol] 31.2 mg/L High 3.3 - 19.4 mg/L [facility] Immunoglobulin light chains.kappa/Immunog lobulin light chains.lambda (S) [Mass ratio] 1.46 0.26 - 1.65 [facility] Immunoglobulin light chains.lambda.free [Mass/Vol] 21.4 mg/L 5.7 - 26.3 mg/L [facility] Immunoglobulin light chains.kappa.free (S) [Mass/Vol] 31.2 mg/L High 3.3-19.4 [facility] Comment on above: Order Comment: Speci men Type: BLOOD SPECIMEN Ordering Facility: [facility] Address: [address] [place] [address] Performed By: #### K LFRS #### [facility] [place] [id number] [address] [place] [address] [place] Immunoglobulin light chains.kappa/Immunog lobulin light chains.lambda (S) [Mass ratio] 1.46 Normal 0.26-1.65 [facility] Comment on above: Order Comment: Speci men Type: BLOOD SPECIMEN Ordering Facility: [facility] Address: [address] [place] [address] Performed By: #### K LFRS #### [facility] CLIA [id number] [address] [place] [address] OF [facility] Immunoglobulin light chains.lambda.free [Mass/Vol] 21.4 mg/L Normal 5.7-26.3 [facility] Comment on above: Order Comment: Speci men Type: BLOOD SPECIMEN Ordering Facility: [facility] Address: [address] [place] [address] Performed By: #### K LFRS #### [facility] CLIA [id number] [address] [place] [address] [place] Methylmalonate SerPl-sCncon 01-16-2022 Methylmalonate [Moles/Vol] 216 nmol/L Normal 79-376 [facility] Comment on above: Order Comment: Speci men Type: BLOOD SPECIMEN Ordering Facility: [facility] Address: [address] [place] [address] Result Comment: This test was developed and its performance characteristics determined by [facility]'s [facility] Pathology and Laboratory Medicine [place] (RT-PLMI). It has not been cleared or approved by the FDA. RT-PLMI is regulated under CLIA as qualified to perform high-complexity testing. This test is used for clinical purposes. It should not be regarded as investigational or for research. Performed By: #### 1 3964-2 #### [facility] [place] [id number] [address] [place] [address] [place] TSH BLDon 01-16-2022 TSH Qn 1.380 m[IU]/L 0.270 - 4.200 mIU/L [facility] TSH SerPl-aCncon 01-16-2022 TSH Qn 1.380 m[IU]/L Normal 0.270-4.200 [facility] Comment on above: Order Comment: Speci men Type: BLOOD SPECIMEN Ordering Facility: [facility] Address: [address] [place] [id number] Performed By: #### 3 016-3, B12, 1988-01 #### [facility] CLIA [id number] [facility] [place] [address] [place] VITAMIN B12 BLOODon 01-17-20 22 Cobalamin (Vitamin B12) [Mass/Vol] 1194 pg/mL 232-1,245 pg/mL [facility] Cobalamin (Vitamin B12) [Mass/Vol] 1194 pg/mL Normal 232-1,245 [facility] Comment on above: Order Comment: Speci men Type: BLOOD SPECIMEN Ordering Facility: [facility] Address: [address] [place], [place] [id number] Performed By: #### 3 016-3, B12, 1988-01 #### [facility] CLIA [id number] [address] [place] [address] [place] Office Visit (Cardiology)on 10-05-2021 Follow-up [...] Instructions By signing my name below, I, Annamarie Plaza LPN, attest that this documentation has been prepared under the direction and in the presence of Dr. Stephany Kaye MD. All medical record entries made by the Annamarie were at my direction and personally dictated [...] for follow-up of a hospitalization for D/C [facility] 08/09/2021. Patient is in the office for the first time after being seen in consultation at [facility] last month for an episode of [...] 05Oct2021 11:53AM Heart Rate69, L Brachial Artery Vyrmonan556, LUE, Sitting Tuwqhwaau78, LUE, Sitting Height5 ft 4 in Ebteay873 lb BMI Ezlpoatosr19.67 kg/m2 BSA Calculated1.96 Tobacco Useb) No Fall [...] Oct 05 2021 12:22PM EST (Author) Normal [facility] Tobacco Screening.on 022 Fall risk assessment a) No falls within the last year [facility] [address] [place] Work Phone: Tobacco use status CP b) No [facility] [address] [place] Work Phone: CULTURE URINEon 09-07-2021 CULTURE URINE Culture Observations : LIGHT GROWTH OF MIXED GENITAL RAMSES. NO POTENTIAL PATHOGENS SEEN. Normal [facility] Comment on above: Performed By: #### B MP #### [facility] [address] [place] [address] Dr. Millie Flores UA RANDOM W/MICROSCOPICon BACTERIA TRACE Abnormal NONE SEEN [facility] Comment on above: Performed By: #### B MP #### [facility] [id number] Millie Flores Bilirubin Ql (U) Negative Normal NEGATIVE [facility] Comment on above: Performed By: #### B MP #### [facility] [address] [address] [address] Millie Flores CAST NONE SEEN Normal NONE SEEN [facility] Comment on above: Performed By: #### B MP #### [facility] [address] [place] [address] Dr. Millie Flores Clarity (U) CLEAR Normal CLEAR [facility] Comment on above: Performed By: #### B MP #### [facility] [address] [place] [address] Dr. Millie Flores Color (U) LT. YELLOW Normal YELLOW [facility] Comment on above: Performed By: #### B MP #### [facility] [address] [place] [address] Dr. Millie Flores Crystals LM Nom (Urine sed) NONE SEEN Normal NONE SEEN [facility] Comment on above: Performed By: #### B MP #### [facility] [address] [place] [address] Dr. Millie Flores Epithelial cells LM Ql (Urine sed) FEW Abnormal NONE SEEN /RARE [facility] Comment on above: Performed By: #### B MP #### [facility] [address] [place] [address] Dr. Millie Flores Glucose Ql (U) Negative Normal NEGATIVE [facility] Comment on above: Performed By: #### B MP #### [facility] [address] [place] [address] Dr. Millie Flores Hemoglobin Ql (U) Negative Normal NEGATIVE [facility] Comment on above: Performed By: #### B MP #### [facility] [address] [place] [address] Dr. Millie Flores Ketones Ql (U) Negative Normal NEGATIVE [facility] Comment on above: Performed By: #### B MP #### [facility] [address] [place] [address] Dr. Millie Flores LEUKOCYTES SMALL Abnormal NEGATIVE [facility] Comment on above: Performed By: #### B MP #### [facility] [address] [place] [address] Dr. Millie Flores MUCOUS TRACE Abnormal NONE SEEN [facility] Comment on above: Performed By: #### B MP #### [facility] [address] [address] [address] Millie Flores Nitrite Ql (U) Negative Normal NEGATIVE [facility] Comment on above: Performed By: #### B MP #### [facility] [address] [place] [address] Dr. Millie Flores pH (U) 5.5 [pH] Normal 5-9 [facility] Comment on above: Performed By: #### B MP #### [facility] [address] [place] [address] Dr. Millie Flores RBC 0-2 Normal 0-2 [facility] Comment on above: Performed By: #### B MP #### [facility] [address] [place] [address] Dr. Millie Flores SPEC GRAVITY >=1.030 Abnormal 1.005-<=1.[address] [facility] Comment on above: Performed By: #### B MP #### [facility] [address] [place] [address] Dr. Millie Flores UA PROTEIN Negative Normal NEGATIVE/ TRACE [facility] Comment on above: Performed By: #### B MP #### [facility] [address] [place] [address] Dr. Millie Flores Urobilinogen Qn (U) 0.2 {Robert'U}/dL Normal 0.2 - 1. 0 [facility] Comment on above: Performed By: #### B MP #### [facility] [address] [place] [address] Dr. Millie Flores WBC 5-10 Abnormal NONE SEEN [facility] Comment on above: Performed By: #### B MP #### [facility] [address] [place] [address] Dr. Millie Flores MM screening mammo BI w/CADo n 09-04-2021 MM screening mammo BI w/CAD [facility] [place] [address] [place] [address] Mammography Report Signed Patient: Areli Hawkins MR#: [id number] : 1945 Acct:[id number] Age/Sex: 75 / F ADM Date: 09/02/21 Loc: [place] Room: Type: [facility] Attending Dr: Anurag Bolton DO Ordering [...] Marbella Mistry M.D.09/04/2021 11:34 AM Dictation Location: [facility] Transcribed By: [facility] 09/04/21 1134 Dictated By: Marbella Mistry MD 09/04/21 113 Signed By: 09/04/21 1134 [facility] CBC AUTO DIFFon 08-30-2021 BASO # 0.0 103/ul Normal 0.0-0.1 [facility] Comment on above: Performed By: #### C BC #### [facility] [address] [place] [address] Dr. Millie Flores Basophils/100 WBC (Bld) 0.6 % Normal 0.2-2.0 [facility] Comment on above: Performed By: #### C BC #### [facility] [address] [place] [address] Dr. Millie Flores EO # 0.0 103/ul Normal 0.0-0.7 [facility] Comment on above: Performed By: #### C BC #### [facility] [address] [place] [address] Dr. Millie Flores Eosinophils/100 WBC (Bld) 0.9 % Normal 0.9-7.0 [facility] Comment on above: Performed By: #### C BC #### [facility] [address] [place] [address] Dr. Millie Flores Erythrocyte distribution width (RBC) [Ratio] 48.3 % Critically high 11.0-15.0 [facility] Comment on above: Performed By: #### C BC #### [facility] [address] [place] [address] Dr. Millie Flores Hematocrit (Bld) [Volume fraction] 38.1 % Normal 36.0-48.0 [facility] Comment on above: Performed By: #### C BC #### [facility] [address] [place] [address] Dr. Millie Flores Hemoglobin (Bld) [Mass/Vol] 12.1 g/dL Normal 12.0-16.0 [facility] Comment on above: Performed By: #### C BC #### [facility] [address] [place] [address] Dr. Millie Flores IG # 0.07 10e3/ul Critically high 0.00-0.03 [facility] Comment on above: Performed By: #### C BC #### [facility] [address] [place] [address] Dr. Millie Flores IG % 0.8 % Critically high 0.0-0.5 [facility] Comment on above: Performed By: #### C BC #### [facility] [address] [place] [address] Dr. Millie Flores LYMPH # 2.3 103/ul Normal 1.2-3.8 [facility] Comment on above: Performed By: #### C BC #### [facility] [address] [place] [address] Dr. Millie Flores Lymphocytes/100 WBC (Bld) 26.8 % Normal 20.5-60.0 [facility] Comment on above: Performed By: #### C BC #### [facility] [address] [place] [address] Dr. Millie Flores MANUAL DIFF REQ NO Normal [facility] Comment on above: Performed By: #### C BC #### [facility] [address] [place] [address] Dr. Millie Flores MCH (RBC) [Entitic mass] 30.7 pg Normal 26.7-34.0 [facility] Comment on above: Performed By: #### C BC #### [facility] [address] [place] [address] Dr. Millie Flores MCHC (RBC) [Mass/Vol] 31.8 g/dL Normal 29.9-35.2 [facility] Comment on above: Performed By: #### C BC #### [facility] [address] [place] [address] Dr. Millie Flores MCV (RBC) [Entitic vol] 96.7 fL Normal 81.0-99.0 [facility] Comment on above: Performed By: #### C BC #### [facility] [address] [place] [address] Dr. Millie Flores MONO # 0.9 103/ul Critically high 0.3-0.8 [facility] Comment on above: Performed By: #### C BC #### [facility] [address] [place] [address] Dr. Millie Flores Monocytes/100 WBC (Bld) 11.4 % Normal 1.7-12.0 [facility] Comment on above: Performed By: #### C BC #### [facility] [address] [place] [address] Dr. Millie Flores NEUT # 5.1 103/ul Normal 1.4-6.5 [facility] Comment on above: Performed By: #### C BC #### [facility] [address] [place] [address] Dr. Millie Flores Neutrophils/100 WBC (Bld) 59.5 % Normal 43.0-75.0 [facility] Comment on above: Performed By: #### C BC #### [facility] [address] [place] [address] Dr. Millie Flores Platelet mean volume (Bld) [Entitic vol] 9.5 fL Normal 9.5-13.5 [facility] Comment on above: Performed By: #### C BC #### [facility] [address] [place] [address] Dr. Millie Flores PLT 239 103/ul Normal 150-450 [facility] Comment on above: Performed By: #### C BC #### [facility] [address] [place] [address] Dr. Millie Flores RBC 3.94 106/ul Critically low 4.20-5.40 [facility] Comment on above: Performed By: #### C BC #### [facility] [address] [place] [address] Dr. Millie Flores WBC 8.7 103/ul Normal 4.0-11.0 [facility] Comment on above: Performed By: #### C BC #### [facility] [address] [place] [address] Dr. Millie Flores PROF 14(COMP METB)on 021 Albumin [Mass/Vol] 3.4 g/dL Critically low 3.5-5.0 [facility] Comment on above: Performed By: #### C ALINE HSTROPN #### [facility] [address] [place] [address] Dr. Millie Flores Albumin/Globulin [Mass ratio] 1.0 {ratio} Normal [facility] Comment on above: Performed By: #### C ALINE HSTROPN #### [facility] [address] [place] [address] Dr. Millie Flores ALP [Catalytic activity/Vol] 77 U/L Normal 38-126 [facility] Comment on above: Performed By: #### C ALINE HSTROPN #### [facility] [address] [place] [address] Dr. Millie Flores ALT [Catalytic activity/Vol] 17 U/L Normal 9-52 [facility] Comment on above: Performed By: #### C ALINE, HSTROPN #### [facility] [address] [address] [address] Millie Flores Anion gap [Moles/Vol] 13.1 mmol/L Normal [facility] Comment on above: Performed By: #### C ALINE, HSTROPN #### [facility] [address] [address] [address] Millie Flores AST [Catalytic activity/Vol] 19 U/L Normal 14-36 [facility] Comment on above: Performed By: #### C ALINE, HSTROPN #### [facility] [address] [place] [address] Dr. Millie Flores Bilirubin [Mass/Vol] 0.2 mg/dL Normal 0.2-1.3 [facility] Comment on above: Performed By: #### C ALINE, HSTROPN #### [facility] [address] [place] [address] Dr. Millie Flores Calcium [Mass/Vol] 9.2 mg/dL Normal 8.4-10.2 [facility] Comment on above: Performed By: #### C ALINE, HSTROPN #### [facility] [address] [place] [address] Dr. Millie Flores Chloride [Moles/Vol] 101 mmol/L Normal 98-107 [facility] Comment on above: Performed By: #### C ALINE, HSTROPN #### [facility] [address] [place] [address] Dr. Millie Flores CO2 [Moles/Vol] 26.3 mmol/L Normal 22.0-30.0 [facility] Comment on above: Performed By: #### C ALINE, HSTROPN #### [facility] [address] [place] [address] Dr. Millie Flores Creatinine [Mass/Vol] 0.99 mg/dL Normal 0.52-1.04 [facility] Comment on above: Performed By: #### C ALINE, HSTROPN #### [facility] [address] [address] [address] Millie Flores EGFR-AF COLOMBIAN >60 Normal >=60 [facility] Comment on above: Performed By: #### C MP, HSTROPN #### [facility] [address] [address] [address] Millie Flores EGFR-NON AF COLOMBIAN 55 mL/min/1.73m2 Critically low >=60 [facility] Comment on above: Performed By: #### C MP, HSTROPN #### [facility] [address] [address] [address] Millie Flores Globulin (S) [Mass/Vol] 3.8 g/dL Normal [facility] Comment on above: Performed By: #### C MP, HSTROPN #### [facility] [address] [place] [address] Dr. Millie Flores Glucose [Mass/Vol] 111 mg/dL Critically high 74-106 [facility] Comment on above: Performed By: #### C MP, HSTROPN #### [facility] [address] [address] [address] Millie Flores Potassium [Moles/Vol] 3.4 mmol/L Normal 3.4-5.0 [facility] Comment on above: Performed By: #### C MP, HSTROPN #### [facility] [address] [address] [address] Millie Flores Protein [Mass/Vol] 7.2 g/dL Normal 6.1-8.2 [facility] Comment on above: Performed By: #### C MP, HSTROPN #### [facility] [address] [address] [address] Millie Flores Sodium [Moles/Vol] 137 mmol/L Normal 137-145 [facility] Comment on above: Performed By: #### C MP, HSTROPN #### [facility] [address] [address] [address] Millie Flores Urea nitrogen [Mass/Vol] 12.0 mg/dL Normal 7.0-17.0 [facility] Comment on above: Performed By: #### C MP, HSTROPN #### [facility] [address] [address] [address] Millie Flores Urea nitrogen/Creatinine [Mass ratio] 12.1 mg/mg Normal [facility] Comment on above: Performed By: #### C MP, HSTROPN #### [facility] [address] [address] [address] Millie Flores TROPONIN, HIGH SENSITIVITYon 08-30-2021 HSTROP 6.2 pg/mL Normal 4.0-35.5 [facility] Comment on above: Result Comment: CUT- OFF POINTS HAVE BEEN ESTABLISHED BASED ON THE FOURTH UNIVERSAL DEFINITIONS OF MYOCARDIAL INFARCTION. THE UPPER REFERENCE LIMIT (URL) OF TROPONIN, DEFINED THE 99TH PERCENTILE OF cTnI DISTRIBUTION IN A REFERENCE POPULATION, HAS BEEN CONFIRMED THE DECISION THRESHOLD FOR [place] DIAGNOSIS. Performed By: #### C ALINE, HSTROPN #### [facility] [address] [place] [address] Dr. Millie Flores XR CHEST 1 Von [...] by: ALVIN MONZON Date: 2021-08-30 05:[address] [facility] Complete Blood Count Auto Di ffon 08-09-2021 Basophils (Bld) [#/Vol] 0.0 10*3/uL Normal 0.0-0.2 [facility] Comment on above: Result Comment: PERF ORMED BY: [place] [address] PATHOLOGIST [employer]ER ROBYN CASAS M.D. Performed By: #### C BC, LIPASE, LACTIC, CMP #### [place] [address] [place] Basophils/100 WBC (Bld) 0.3 % Normal . [facility] Comment on above: Performed By: #### C BC, LIPASE, LACTIC, CMP #### [address] Eosinophils (Bld) [#/Vol] 0.3 10*3/uL Normal 0.0-0.45 [facility] Comment on above: Performed By: #### C BC, LIPASE, LACTIC, CMP #### [address] Eosinophils/100 WBC (Bld) 2.8 % Normal . [facility] Comment on above: Performed By: #### C BC, LIPASE, LACTIC, CMP #### [address] Erythrocyte distribution width (RBC) [Ratio] 14.4 % Normal 11.9-15.3 [facility] Comment on above: Performed By: #### C BC, LIPASE, LACTIC, CMP #### [address] Hematocrit (Bld) [Volume fraction] 32.7 % Low 34.0-46.4 [facility] Comment on above: Performed By: #### C BC, LIPASE, LACTIC, CMP #### [address] Hemoglobin (Bld) [Mass/Vol] 11.0 g/dL Low 11.8-15.4 [facility] Comment on above: Performed By: #### C BC, LIPASE, LACTIC, CMP #### [address] Lymphocytes (Bld) [#/Vol] 1.3 10*3/uL Normal 1.00-4.8 [facility] Comment on above: Performed By: #### C BC, LIPASE, LACTIC, CMP #### [address] Lymphocytes/100 WBC (Bld) 14.0 % Normal . [facility] Comment on above: Performed By: #### C BC, LIPASE, LACTIC, CMP #### [facility] [address] MCH (RBC) [Entitic mass] 31.6 pg Normal 24.7-34.3 [facility] Comment on above: Performed By: #### C BC, LIPASE, LACTIC, CMP #### [address] MCV (RBC) [Entitic vol] 94.0 fL Normal 80-100 [facility] Comment on above: Performed By: #### C BC, LIPASE, LACTIC, CMP #### [address] Mean Corpuscular HGB Conc 33.6 g/dL Normal 32.0-35.0 [facility] Comment on above: Performed By: #### C BC, LIPASE, LACTIC, CMP #### [address] Monocytes (Bld) [#/Vol] 1.3 10*3/uL High 0.0-0.8 [facility] Comment on above: Performed By: #### C BC, LIPASE, LACTIC, CMP #### [address] Monocytes/100 WBC (Bld) 13.7 % Normal . [facility] Comment on above: Performed By: #### C BC, LIPASE, LACTIC, CMP #### [address] Neutrophils (Bld) [#/Vol] 6.5 10*3/uL Normal 1.8-7.7 [facility] Comment on above: Performed By: #### C BC, LIPASE, LACTIC, CMP #### [address] Neutrophils/100 WBC (Bld) 69.2 % Normal . [facility] Comment on above: Performed By: #### C BC, LIPASE, LACTIC, CMP #### [address] Nucleated RBC/100 WBC (Bld) [Ratio] 0.1 % Normal 0-0.5 [facility] Comment on above: Performed By: #### C BC, LIPASE, LACTIC, CMP #### [facility] [address] Platelet mean volume (Bld) [Entitic vol] 7.1 fL Normal 6.3-10.7 [facility] Comment on above: Performed By: #### C BC, LIPASE, LACTIC, CMP #### [facility] [address] Platelets (Bld) [#/Vol] 179 10*3/uL Normal 150-450 [facility] Comment on above: Performed By: #### C BC, LIPASE, LACTIC, CMP #### [address] RBC (Bld) [#/Vol] 3.48 10*6/uL Low 3.60-5.00 [facility] Comment on above: Performed By: #### C BC, LIPASE, LACTIC, CMP #### [address] WBC (Bld) [#/Vol] 9.3 10*3/uL Normal 4.5-11.0 [facility] Comment on above: Performed By: #### C BC, LIPASE, LACTIC, CMP #### [address] Comprehensive Metabolic Pane lizy 08-09-2021 Albumin [Mass/Vol] 2.4 g/dL Low 3.2-5.5 [facility] Comment on above: Performed By: #### C BC, LIPASE, LACTIC, CMP #### [address] Albumin/Globulin [Mass ratio] 0.9 {ratio} Normal [facility] Comment on above: Performed By: #### C BC, LIPASE, LACTIC, CMP #### [address] ALP [Catalytic activity/Vol] 53 U/L Normal 32-92 [facility] Comment on above: Performed By: #### C BC, LIPASE, LACTIC, CMP #### [facility] [address] [place] [address] [place] ALT [Catalytic activity/Vol] 15 U/L Normal 10-60 [facility] Comment on above: Performed By: #### C BC, LIPASE, LACTIC, CMP #### [facility] [address] AST [Catalytic activity/Vol] 20 U/L Normal 10-42 [facility] Comment on above: Performed By: #### C BC, LIPASE, LACTIC, CMP #### [facility] [address] Bilirubin [Mass/Vol] 0.4 mg/dL Normal 0.3-1.2 [facility] Comment on above: Performed By: #### C BC, LIPASE, LACTIC, CMP #### [facility] [address] Calcium [Mass/Vol] 8.1 mg/dL Low 8.2-10.2 [facility] Comment on above: Performed By: #### C BC, LIPASE, LACTIC, CMP #### [facility] [address] [place] [address] [place] Chloride [Moles/Vol] 102 mmol/L Normal 95-114 [facility] Comment on above: Performed By: #### C BC, LIPASE, LACTIC, CMP #### [facility] [address] [place] [address] [place] CO2 [Moles/Vol] 29.7 mmol/L Normal 22.0-30.0 [facility] Comment on above: Performed By: #### C BC, LIPASE, LACTIC, CMP #### [facility] [address] [place] [address] [place] Creatinine [Mass/Vol] 0.57 mg/dL Normal 0.44-1.03 [facility] Comment on above: Performed By: #### C BC, LIPASE, LACTIC, CMP #### [facility] [address] [place] [address] [place] Creatinine Clr Calc Pharmacy 73.94 Normal [facility] Comment on above: Result Comment: PERF ORMED BY: [facility] [address] [place] [address] PATHOLOGIST [employer]ER ROBYN CASAS M.D. Performed By: #### C BC, LIPASE, LACTIC, CMP #### [address] Estimated GFR ( Joey > 60 [facility] Comment on above: Result Comment: GFR estimated reference range: According to KDOQI guidelines, <60 ml/min/1.73m2 is sufficient to diagnose a patient with chronic kidney disease. Performed By: #### C BC, LIPASE, LACTIC, CMP #### [facility] [address] Estimated GFR (Non- Am > 60 [facility] Comment on above: Performed By: #### C BC, LIPASE, LACTIC, CMP #### [facility] [address] Globulin (S) [Mass/Vol] 2.6 g/dL [facility] Comment on above: Performed By: #### C BC, LIPASE, LACTIC, CMP #### [address] Glucose [Mass/Vol] 104 mg/dL High 70-100 [facility] Comment on above: Result Comment: [place] Glucose Reference Range is dependent on time and content of last meal. Glucose of more than 200 mg/dL in a nonstressed, ambulatory subject supports the diagnosis of Diabetes Mellitus. ADA recommended reference range Performed By: #### C BC, LIPASE, LACTIC, CMP #### [address] Potassium [Moles/Vol] 3.4 mmol/L Low 3.5-5.1 [facility] Comment on above: Performed By: #### C BC, LIPASE, LACTIC, CMP #### [facility] [address] Protein [Mass/Vol] 5.0 g/dL Low 6.1-7.9 [facility] Comment on above: Performed By: #### C BC, LIPASE, LACTIC, CMP #### [facility] [address] Sodium [Moles/Vol] 140 mmol/L Normal 136-146 [facility] Comment on above: Performed By: #### C BC, LIPASE, LACTIC, CMP #### [facility] [address] Urea nitrogen [Mass/Vol] 9 mg/dL Normal 9-23 [facility] Comment on above: Performed By: #### C BC, LIPASE, LACTIC, CMP #### [facility] [address] Glucose Poct Glucometerson 1 10-09-2020 Glucose [Mass/Vol] 108 mg/dL Normal [facility] Comment on above: Result Comment: [place] om Glucose Reference Range is dependent on time and content of last meal. Glucose of more than 200 mg/dL in a nonstressed, ambulatory subject supports the diagnosis of Diabetes Mellitus. PERFORMED BY: [place] [address] PATHOLOGIST [employer]ACTITIONER ROBYN CASAS M.D. Performed By: #### C BC, LIPASE, LACTIC, CMP #### [facility] [address] Glucose [Mass/Vol] 87 mg/dL Normal [facility] Comment on above: Result Comment: [place] om Glucose Reference Range is dependent on time and content of last meal. Glucose of more than 200 mg/dL in a nonstressed, ambulatory subject supports the diagnosis of Diabetes Mellitus. PERFORMED BY: [place] [address] PATHOLOGIST [employer]ACTITIONER ROBYN CASAS M.D. Performed By: #### C BC, LIPASE, LACTIC, CMP #### [facility] [address] Glucose [Mass/Vol] 102 mg/dL Normal [facility] Comment on above: Result Comment: [place] om Glucose Reference Range is dependent on time and content of last meal. Glucose of more than 200 mg/dL in a nonstressed, ambulatory subject supports the diagnosis of Diabetes Mellitus. PERFORMED BY: [place] [address] PATHOLOGIST CH[employer] SCIENCE PRACTITIONER ROBYN CASAS M.D. Performed By: #### C BC, LIPASE, LACTIC, CMP #### [address] Complete Blood Count Auto Di ffon 08-08-2021 Basophils (Bld) [#/Vol] 0.0 10*3/uL Normal 0.0-0.2 [facility] Comment on above: Result Comment: PERF ORMED BY: [place] [address] PATHOLOGIST [employer]ACTITIONER ROBYN CASAS M.D. Performed By: #### C BC, LIPASE, LACTIC, CMP #### [address] Basophils/100 WBC (Bld) 0.2 % Normal . [facility] Comment on above: Performed By: #### C BC, LIPASE, LACTIC, CMP #### [address] Eosinophils (Bld) [#/Vol] 0.2 10*3/uL Normal 0.0-0.45 [facility] Comment on above: Performed By: #### C BC, LIPASE, LACTIC, CMP #### [address] Eosinophils/100 WBC (Bld) 2.2 % Normal . [facility] Comment on above: Performed By: #### C BC, LIPASE, LACTIC, CMP #### [address] Erythrocyte distribution width (RBC) [Ratio] 14.0 % Normal 11.9-15.3 [facility] Comment on above: Performed By: #### C BC, LIPASE, LACTIC, CMP #### [address] Hematocrit (Bld) [Volume fraction] 31.5 % Low 34.0-46.4 [facility] Comment on above: Performed By: #### C BC, LIPASE, LACTIC, CMP #### [place] [id number] [place] Hemoglobin (Bld) [Mass/Vol] 10.6 g/dL Low 11.8-15.4 [facility] Comment on above: Performed By: #### C BC, LIPASE, LACTIC, CMP #### [address] Lymphocytes (Bld) [#/Vol] 1.1 10*3/uL Normal 1.00-4.8 [facility] Comment on above: Performed By: #### C BC, LIPASE, LACTIC, CMP #### [address] Lymphocytes/100 WBC (Bld) 11.8 % Normal . [facility] Comment on above: Performed By: #### C BC, LIPASE, LACTIC, CMP #### [address] MCH (RBC) [Entitic mass] 31.7 pg Normal 24.7-34.3 [facility] Comment on above: Performed By: #### C BC, LIPASE, LACTIC, CMP #### [address] MCV (RBC) [Entitic vol] 94.3 fL Normal 80-100 [facility] Comment on above: Performed By: #### C BC, LIPASE, LACTIC, CMP #### [address] Mean Corpuscular HGB Conc 33.6 g/dL Normal 32.0-35.0 [facility] Comment on above: Performed By: #### C BC, LIPASE, LACTIC, CMP #### [address] Monocytes (Bld) [#/Vol] 1.1 10*3/uL High 0.0-0.8 [facility] Comment on above: Performed By: #### C BC, LIPASE, LACTIC, CMP #### [address] Monocytes/100 WBC (Bld) 11.6 % Normal . [facility] Comment on above: Performed By: #### C BC, LIPASE, LACTIC, CMP #### [address] Neutrophils (Bld) [#/Vol] 6.8 10*3/uL Normal 1.8-7.7 [facility] Comment on above: Performed By: #### C BC, LIPASE, LACTIC, CMP #### [address] Neutrophils/100 WBC (Bld) 74.2 % Normal . [facility] Comment on above: Performed By: #### C BC, LIPASE, LACTIC, CMP #### [address] Nucleated RBC/100 WBC (Bld) [Ratio] 0.0 % Normal 0-0.5 [facility] Comment on above: Performed By: #### C BC, LIPASE, LACTIC, CMP #### [address] Platelet mean volume (Bld) [Entitic vol] 7.1 fL Normal 6.3-10.7 [facility] Comment on above: Performed By: #### C BC, LIPASE, LACTIC, CMP #### [place] [address] [place] Platelets (Bld) [#/Vol] 173 10*3/uL Normal 150-450 [facility] Comment on above: Performed By: #### C BC, LIPASE, LACTIC, CMP #### [place] [address] [place] RBC (Bld) [#/Vol] 3.34 10*6/uL Low 3.60-5.00 [facility] Comment on above: Performed By: #### C BC, LIPASE, LACTIC, CMP #### [place] [address] [place] WBC (Bld) [#/Vol] 9.2 10*3/uL Normal 4.5-11.0 [facility] Comment on above: Performed By: #### C BC, LIPASE, LACTIC, CMP #### [address] [address] [place] Comprehensive Metabolic Pane lizy 08-08-2021 Albumin [Mass/Vol] 2.2 g/dL Low 3.2-5.5 [facility] Comment on above: Performed By: #### C BC, LIPASE, LACTIC, CMP #### [facility] [address] Albumin/Globulin [Mass ratio] 0.9 {ratio} Normal [facility] Comment on above: Performed By: #### C BC, LIPASE, LACTIC, CMP #### [facility] [address] ALP [Catalytic activity/Vol] 43 U/L Normal 32-92 [facility] Comment on above: Performed By: #### C BC, LIPASE, LACTIC, CMP #### [facility] [address] ALT [Catalytic activity/Vol] 16 U/L Normal 10-60 [facility] Comment on above: Performed By: #### C BC, LIPASE, LACTIC, CMP #### [facility] [address] AST [Catalytic activity/Vol] 18 U/L Normal 10-42 [facility] Comment on above: Performed By: #### C BC, LIPASE, LACTIC, CMP #### [facility] [address] Bilirubin [Mass/Vol] 0.4 mg/dL Normal 0.3-1.2 [facility] Comment on above: Performed By: #### C BC, LIPASE, LACTIC, CMP #### [facility] [address] Calcium [Mass/Vol] 8.1 mg/dL Low 8.2-10.2 [facility] Comment on above: Performed By: #### C BC, LIPASE, LACTIC, CMP #### [facility] [address] Chloride [Moles/Vol] 102 mmol/L Normal 95-114 [facility] Comment on above: Performed By: #### C BC, LIPASE, LACTIC, CMP #### [facility] [address] CO2 [Moles/Vol] 29.1 mmol/L Normal 22.0-30.0 [facility] Comment on above: Performed By: #### C BC, LIPASE, LACTIC, CMP #### [facility] [address] Creatinine [Mass/Vol] 0.51 mg/dL Normal 0.44-1.03 [facility] Comment on above: Performed By: #### C BC, LIPASE, LACTIC, CMP #### [address] Creatinine Clr Calc Pharmacy 72.99 [facility] Comment on above: Performed By: #### C BC, LIPASE, LACTIC, CMP #### [address] Estimated GFR ( Joey > 60 [facility] Comment on above: Result Comment: GFR estimated reference range: According to KDOQI guidelines, <60 ml/min/1.73m2 is sufficient to diagnose a patient with chronic kidney disease. Performed By: #### C BC, LIPASE, LACTIC, CMP #### [address] Estimated GFR (Non- Am > 60 [facility] Comment on above: Performed By: #### C BC, LIPASE, LACTIC, CMP #### [address] Globulin (S) [Mass/Vol] 2.5 g/dL [facility] Comment on above: Performed By: #### C BC, LIPASE, LACTIC, CMP #### [address] Glucose [Mass/Vol] 149 mg/dL High 70-100 [facility] Comment on above: Result Comment: [place] om Glucose Reference Range is dependent on time and content of last meal. Glucose of more than 200 mg/dL in a nonstressed, ambulatory subject supports the diagnosis of Diabetes Mellitus. ADA recommended reference range Performed By: #### C BC, LIPASE, LACTIC, CMP #### [address] [place] [address] [place] Potassium [Moles/Vol] 3.6 mmol/L Normal 3.5-5.1 [facility] Comment on above: Performed By: #### C BC, LIPASE, LACTIC, CMP #### [facility] [address] Protein [Mass/Vol] 4.7 g/dL Low 6.1-7.9 [facility] Comment on above: Performed By: #### C BC, LIPASE, LACTIC, CMP #### [facility] [address] Sodium [Moles/Vol] 140 mmol/L Normal 136-146 [facility] Comment on above: Performed By: #### C BC, LIPASE, LACTIC, CMP #### [address] Urea nitrogen [Mass/Vol] 10 mg/dL Normal 9-23 [facility] Comment on above: Performed By: #### C BC, LIPASE, LACTIC, CMP #### [address] Glucose Poct Glucometerson 1 2020 Glucose [Mass/Vol] 102 mg/dL Normal [facility] Comment on above: Result Comment: [place] Glucose Reference Range is dependent on time and content of last meal. Glucose of more than 200 mg/dL in a nonstressed, ambulatory subject supports the diagnosis of Diabetes Mellitus. PERFORMED BY: [place] [address] PATHOLOGIST CH[employer] SCIENCE PRACTITIONER ROBYN CASAS M.D. Performed By: #### C BC, LIPASE, LACTIC, CMP #### [facility] [address] [place] [address] Commemt1 Glu2: Cleaned Meter Normal [facility] Comment on above: Result Comment: PERF ORMED BY: [place] [address] PATHOLOGIST CH[employer] SCIENCE PRACTITIONER ROBYN CASAS M.D. Performed By: #### C BC, LIPASE, LACTIC, CMP #### [address] Glucose [Mass/Vol] 123 mg/dL Normal [facility] Comment on above: Result Comment: [place] om Glucose Reference Range is dependent on time and content of last meal. Glucose of more than 200 mg/dL in a nonstressed, ambulatory subject supports the diagnosis of Diabetes Mellitus. Performed By: #### C BC, LIPASE, LACTIC, CMP #### [address] Commemt1 Glu2: Cleaned Meter [facility] Comment on above: Result Comment: PERF ORMED BY: [place] [address] PATHOLOGIST CH[employer] SCIENCE PRACTITIONER ROBYN CASAS M.D. Performed By: #### C BC, LIPASE, LACTIC, CMP #### [address] Glucose [Mass/Vol] 125 mg/dL Normal [facility] Comment on above: Result Comment: [place] om Glucose Reference Range is dependent on time and content of last meal. Glucose of more than 200 mg/dL in a nonstressed, ambulatory subject supports the diagnosis of Diabetes Mellitus. Performed By: #### C BC, LIPASE, LACTIC, CMP #### [address] Commemt1 Glu2: Cleaned Meter [facility] Comment on above: Result Comment: PERF ORMED BY: [place] [address] PATHOLOGIST CH[employer] SCIENCE PRACTITIONER ROBYN CASAS M.D. Performed By: #### C BC, LIPASE, LACTIC, CMP #### [address] Glucose [Mass/Vol] 141 mg/dL Normal [facility] Comment on above: Result Comment: [place] om Glucose Reference Range is dependent on time and content of last meal. Glucose of more than 200 mg/dL in a nonstressed, ambulatory subject supports the diagnosis of Diabetes Mellitus. Performed By: #### C BC, LIPASE, LACTIC, CMP #### [facility] [address] Ironon 08-08-2021 Iron [Mass/Vol] 15 ug/dL Low 40-150 [facility] Comment on above: Performed By: #### C BC, LIPASE, LACTIC, CMP #### [address] Magnesiumon 08-08-2021 Magnesium [Mass/Vol] 2.0 mg/dL Normal 1.6-2.6 [facility] Comment on above: Performed By: #### C BC, LIPASE, LACTIC, CMP #### [facility] [address] [place] [address] Phosphoruson 08-08-2021 Phosphate [Mass/Vol] 3.2 mg/dL Normal 2.5-4.6 [facility] Comment on above: Performed By: #### C BC, LIPASE, LACTIC, CMP #### [address] Total Iron Binding Capacityo n 08-08-2021 Total Iron Binding Capacity 162 ug/dL Low 255-450 [facility] Comment on above: Performed By: #### C BC, LIPASE, LACTIC, CMP #### [facility] [address] [place] [address] Transferrin [Mass/Vol] 116 mg/dL Low 180-380 [facility] Comment on above: Performed By: #### C BC, LIPASE, LACTIC, CMP #### [facility] [address] [place] [address] Vit. B12/Folate Profileon Cobalamin (Vitamin B12) [Mass/Vol] 1000 pg/mL High 180-914 [facility] Comment on above: Performed By: #### C BC, LIPASE, LACTIC, CMP #### [address] Folate 16.3 ng/mL Normal >5.9 [facility] Comment on above: Result Comment: Anita te reference range: >5.9 ng/ml The WHO technical consultation on folate and vitamin b12 deficiencies has determined that folate concentrations less than 4 ng/ml are considered deficient. PERFORMED BY: [place] [address] PATHOLOGIST [employer]ACTITIONER ROBYN CASAS M.D. Performed By: #### C BC, LIPASE, LACTIC, CMP #### [address] Basic Metabolic Panelon 11- Calcium [Mass/Vol] 7.9 mg/dL Low 8.2-10.2 [facility] Comment on above: Performed By: #### C BC, LIPASE, LACTIC, CMP #### [address] Chloride [Moles/Vol] 105 mmol/L Normal 95-114 [facility] Comment on above: Performed By: #### C BC, LIPASE, LACTIC, CMP #### [address] CO2 [Moles/Vol] 27.9 mmol/L Normal 22.0-30.0 [facility] Comment on above: Performed By: #### C BC, LIPASE, LACTIC, CMP #### [address] Creatinine [Mass/Vol] 0.50 mg/dL Normal 0.44-1.03 [facility] Comment on above: Performed By: #### C BC, LIPASE, LACTIC, CMP #### [address] Creatinine Clr Calc Pharmacy 72.99 [facility] Comment on above: Performed By: #### C BC, LIPASE, LACTIC, CMP #### [address] Estimated GFR ( Joey > 60 [facility] Comment on above: Result Comment: GFR estimated reference range: According to KDOQI guidelines, <60 ml/min/1.73m2 is sufficient to diagnose a patient with chronic kidney disease. Performed By: #### C BC, LIPASE, LACTIC, CMP #### [address] Estimated GFR (Non- Am > 60 [facility] Comment on above: Performed By: #### C BC, LIPASE, LACTIC, CMP #### [facility] [address] Glucose [Mass/Vol] 135 mg/dL High 70-100 [facility] Comment on above: Result Comment: [facility] Glucose Reference Range is dependent on time and content of last meal. Glucose of more than 200 mg/dL in a nonstressed, ambulatory subject supports the diagnosis of Diabetes Mellitus. ADA recommended reference range Performed By: #### C BC, LIPASE, LACTIC, CMP #### [facility] [address] Potassium [Moles/Vol] 3.5 mmol/L Normal 3.5-5.1 [facility] Comment on above: Performed By: #### C BC, LIPASE, LACTIC, CMP #### [address] Sodium [Moles/Vol] 140 mmol/L Normal 136-146 [facility] Comment on above: Performed By: #### C BC, LIPASE, LACTIC, CMP #### [place] [address] [place] Urea nitrogen [Mass/Vol] 10 mg/dL Normal 9-23 [facility] Comment on above: Performed By: #### C BC, LIPASE, LACTIC, CMP #### [address] Complete Blood Count Auto Di ffon 08-07-2021 Basophils (Bld) [#/Vol] 0.0 10*3/uL Normal 0.0-0.2 [facility] Comment on above: Result Comment: PERF ORMED BY: [place] [address] PATHOLOGIST [employer]ACTITIONER ROBYN CASAS M.D. Performed By: #### C BC, LIPASE, LACTIC, CMP #### [place] [address] [place] Basophils/100 WBC (Bld) 0.4 % Normal . [facility] Comment on above: Performed By: #### C BC, LIPASE, LACTIC, CMP #### [address] Eosinophils (Bld) [#/Vol] 0.1 10*3/uL Normal 0.0-0.45 [facility] Comment on above: Performed By: #### C BC, LIPASE, LACTIC, CMP #### [address] Eosinophils/100 WBC (Bld) 1.4 % Normal . [facility] Comment on above: Performed By: #### C BC, LIPASE, LACTIC, CMP #### [address] Erythrocyte distribution width (RBC) [Ratio] 14.3 % Normal 11.9-15.3 [facility] Comment on above: Performed By: #### C BC, LIPASE, LACTIC, CMP #### [address] Hematocrit (Bld) [Volume fraction] 31.9 % Low 34.0-46.4 [facility] Comment on above: Performed By: #### C BC, LIPASE, LACTIC, CMP #### [address] Hemoglobin (Bld) [Mass/Vol] 10.8 g/dL Low 11.8-15.4 [facility] Comment on above: Performed By: #### C BC, LIPASE, LACTIC, CMP #### [address] Lymphocytes (Bld) [#/Vol] 1.2 10*3/uL Normal 1.00-4.8 [facility] Comment on above: Performed By: #### C BC, LIPASE, LACTIC, CMP #### [address] Lymphocytes/100 WBC (Bld) 11.7 % Normal . [facility] Comment on above: Performed By: #### C BC, LIPASE, LACTIC, CMP #### [address] MCH (RBC) [Entitic mass] 31.7 pg Normal 24.7-34.3 [facility] Comment on above: Performed By: #### C BC, LIPASE, LACTIC, CMP #### [address] MCV (RBC) [Entitic vol] 94.3 fL Normal 80-100 [facility] Comment on above: Performed By: #### C BC, LIPASE, LACTIC, CMP #### [address] Mean Corpuscular HGB Conc 33.7 g/dL Normal 32.0-35.0 [facility] Comment on above: Performed By: #### C BC, LIPASE, LACTIC, CMP #### [address] Monocytes (Bld) [#/Vol] 1.3 10*3/uL High 0.0-0.8 [facility] Comment on above: Performed By: #### C BC, LIPASE, LACTIC, CMP #### [address] Monocytes/100 WBC (Bld) 12.8 % Normal . [facility] Comment on above: Performed By: #### C BC, LIPASE, LACTIC, CMP #### [address] Neutrophils (Bld) [#/Vol] 7.8 10*3/uL High 1.8-7.7 [facility] Comment on above: Performed By: #### C BC, LIPASE, LACTIC, CMP #### [address] Neutrophils/100 WBC (Bld) 73.7 % Normal . [facility] Comment on above: Performed By: #### C BC, LIPASE, LACTIC, CMP #### [address] Nucleated RBC/100 WBC (Bld) [Ratio] 0.0 % Normal 0-0.5 [facility] Comment on above: Performed By: #### C BC, LIPASE, LACTIC, CMP #### [address] [place] [address] [place] Platelet mean volume (Bld) [Entitic vol] 7.1 fL Normal 6.3-10.7 [facility] Comment on above: Performed By: #### C BC, LIPASE, LACTIC, CMP #### [facility] [address] Platelets (Bld) [#/Vol] 177 10*3/uL Normal 150-450 [facility] Comment on above: Performed By: #### C BC, LIPASE, LACTIC, CMP #### [address] RBC (Bld) [#/Vol] 3.39 10*6/uL Low 3.60-5.00 [facility] Comment on above: Performed By: #### C BC, LIPASE, LACTIC, CMP #### [address] WBC (Bld) [#/Vol] 10.5 10*3/uL Normal 4.5-11.0 [facility] Comment on above: Performed By: #### C BC, LIPASE, LACTIC, CMP #### [address] ECH echo transthoracicon ECH echo transthoracic [facility] Main [place] [address] [place] [address] Echocardiogram Signed Patient: Areli Hawkins MR#: [id number] : 1945 Acct:[id number] Age/Sex: 75 / F ADM Date: 08/01/21 Loc: Room: [address] [place] [address] Type: ADM IN Attending Dr: Tony Klein [...] Canch[place] DO 08/07/21 1155 Signed By: 08/07/21 1429 [facility] Free T4 (Free Thyroxine)on 10-07-2020 Free T4 [Mass/Vol] 1.02 ng/dL Normal 0.61-1.12 [facility] Comment on above: Performed By: #### C BC, LIPASE, LACTIC, CMP #### [facility] [address] [place] [id number] [facility] Glucose Poct Glucometerson 10-07-2020 Commemt1 Glu2: Cleaned Meter Normal [facility] Comment on above: Result Comment: PERF ORMED BY: [facility] [address] [place] [address] PATHOLOGIST CH[employer] SCIENCE PRACTITIONER ROBYN CASAS M.D. Performed By: #### C BC, LIPASE, LACTIC, CMP #### [address] Glucose [Mass/Vol] 104 mg/dL Normal [facility] Comment on above: Result Comment: [place] Glucose Reference Range is dependent on time and content of last meal. Glucose of more than 200 mg/dL in a nonstressed, ambulatory subject supports the diagnosis of Diabetes Mellitus. Performed By: #### C BC, LIPASE, LACTIC, CMP #### [address] Glucose [Mass/Vol] 125 mg/dL Normal [facility] Comment on above: Result Comment: [place] Glucose Reference Range is dependent on time and content of last meal. Glucose of more than 200 mg/dL in a nonstressed, ambulatory subject supports the diagnosis of Diabetes Mellitus. Performed By: #### C BC, LIPASE, LACTIC, CMP #### [place] [address] [place] Commemt1 Glu2: Cleaned Meter Normal [facility] Comment on above: Result Comment: PERF ORMED BY: [facility] [address] [place] [address] PATHOLOGIST CH[employer] SCI[employer] PRACTITIONER ROBYN CASAS M.D. Performed By: #### C BC, LIPASE, LACTIC, CMP #### [facility] [address] [place] [address] [place] Glucose [Mass/Vol] 109 mg/dL Normal [facility] Comment on above: Result Comment: [place] Glucose Reference Range is dependent on time and content of last meal. Glucose of more than 200 mg/dL in a nonstressed, ambulatory subject supports the diagnosis of Diabetes Mellitus. Performed By: #### C BC, LIPASE, LACTIC, CMP #### [address] Commemt1 Glu2: Cleaned Meter [facility] Comment on above: Result Comment: PERF ORMED BY: [place] [address] PATHOLOGIST CH[employer] SCIENCE PRACTITIONER ROBYN CASAS M.D. Performed By: #### C BC, LIPASE, LACTIC, CMP #### [address] Glucose [Mass/Vol] 118 mg/dL Normal [facility] Comment on above: Result Comment: [place] Glucose Reference Range is dependent on time and content of last meal. Glucose of more than 200 mg/dL in a nonstressed, ambulatory subject supports the diagnosis of Diabetes Mellitus. Performed By: #### C BC, LIPASE, LACTIC, CMP #### [address] Commemt1 Glu2: Cleaned Meter [facility] Comment on above: Result Comment: PERF ORMED BY: [place] [address] PATHOLOGIST CH[employer] SCIENCE PRACTITIONER ROBYN CASAS M.D. Performed By: #### C BC, LIPASE, LACTIC, CMP #### [address] Glucose [Mass/Vol] 117 mg/dL Normal [facility] Comment on above: Result Comment: [place] Glucose Reference Range is dependent on time and content of last meal. Glucose of more than 200 mg/dL in a nonstressed, ambulatory subject supports the diagnosis of Diabetes Mellitus. Performed By: #### C BC, LIPASE, LACTIC, CMP #### [address] Magnesiumon 08-07-2021 Magnesium [Mass/Vol] 2.0 mg/dL Normal 1.6-2.6 [facility] Comment on above: Performed By: #### C BC, LIPASE, LACTIC, CMP #### [facility] [address] Phosphoruson 08-07-2021 Phosphate [Mass/Vol] 2.9 mg/dL Normal 2.5-4.6 [facility] Comment on above: Performed By: #### C BC, LIPASE, LACTIC, CMP #### [address] Thyroid Stimulating Hormoneo n 08-07-2021 TSH Qn 1.34 m[IU]/L Normal 0.45-5.33 [facility] Comment on above: Result Comment: PERF ORMED BY: [place] [address] PATHOLOGIST CH[employer] SCI[employer] PRACTITIONER ROBYN CASAS M.D. Performed By: #### C BC, LIPASE, LACTIC, CMP #### [address] Basic Metabolic Panelon 07-24 Calcium [Mass/Vol] 8.2 mg/dL Normal 8.2-10.2 [facility] Comment on above: Performed By: #### C BC, LIPASE, LACTIC, CMP #### [address] Chloride [Moles/Vol] 110 mmol/L Normal 95-114 [facility] Comment on above: Performed By: #### C BC, LIPASE, LACTIC, CMP #### [address] CO2 [Moles/Vol] 25.8 mmol/L Normal 22.0-30.0 [facility] Comment on above: Performed By: #### C BC, LIPASE, LACTIC, CMP #### [address] Creatinine [Mass/Vol] 0.55 mg/dL Normal 0.44-1.03 [facility] Comment on above: Performed By: #### C BC, LIPASE, LACTIC, CMP #### [facility] [address] Creatinine Clr Calc Pharmacy 72.55 [facility] Comment on above: Performed By: #### C BC, LIPASE, LACTIC, CMP #### [facility] [address] Estimated GFR ( Joey > 60 [facility] Comment on above: Result Comment: GFR estimated reference range: According to KDOQI guidelines, <60 ml/min/1.73m2 is sufficient to diagnose a patient with chronic kidney disease. Performed By: #### C BC, LIPASE, LACTIC, CMP #### [address] Estimated GFR (Non- Am > 60 [facility] Comment on above: Performed By: #### C BC, LIPASE, LACTIC, CMP #### [address] Glucose [Mass/Vol] 170 mg/dL High 70-100 [facility] Comment on above: Result Comment: [place] Glucose Reference Range is dependent on time and content of last meal. Glucose of more than 200 mg/dL in a nonstressed, ambulatory subject supports the diagnosis of Diabetes Mellitus. ADA recommended reference range Performed By: #### C BC, LIPASE, LACTIC, CMP #### [address] Potassium [Moles/Vol] 3.3 mmol/L Low 3.5-5.1 [facility] Comment on above: Performed By: #### C BC, LIPASE, LACTIC, CMP #### [address] Sodium [Moles/Vol] 144 mmol/L Normal 136-146 [facility] Comment on above: Performed By: #### C BC, LIPASE, LACTIC, CMP #### [address] Urea nitrogen [Mass/Vol] 7 mg/dL Low 9-23 [facility] Comment on above: Performed By: #### C BC, LIPASE, LACTIC, CMP #### [facility] [address] [place] [id number] [place] ECG 12 lead ECGon 08-06-2021 ECG 12 lead ECG [facility] Main [place] [address] [place] [address] Electrocardiograph Report Signed Patient: Areli Hawkins MR#: [id number] : 1945 Acct:[id number] Age/Sex: 75 / F ADM Date: 08/01/21 Loc: Room: [address] [place] [address] Type: ADM IN Attending Dr: Tony Klein [...] Signed By Alvin Pardo DO 08/07 1313 [facility] Glucose Poct Glucometerson 1 10-06-2020 Glucose [Mass/Vol] 139 mg/dL Normal [facility] Comment on above: Result Comment: [facility] Glucose Reference Range is dependent on time and content of last meal. Glucose of more than 200 mg/dL in a nonstressed, ambulatory subject supports the diagnosis of Diabetes Mellitus. PERFORMED BY: [place] [address] PATHOLOGIST CH[employer] SCIENCE PRACTITIONER ROBYN CASAS M.D. Performed By: #### C BC, LIPASE, LACTIC, CMP #### [facility] [address] [place] [address] Commemt1 Glu2: Cleaned Meter [facility] Comment on above: Result Comment: PERF ORMED BY: [place] [address] PATHOLOGIST CH[employer] SCIENCE PRACTITIONER ROBYN CASAS M.D. Performed By: #### C BC, LIPASE, LACTIC, CMP #### [address] Glucose [Mass/Vol] 180 mg/dL Normal [facility] Comment on above: Result Comment: [place] [facility] Glucose Reference Range is dependent on time and content of last meal. Glucose of more than 200 mg/dL in a nonstressed, ambulatory subject supports the diagnosis of Diabetes Mellitus. Performed By: #### C BC, LIPASE, LACTIC, CMP #### [address] Commemt1 Glu2: Cleaned Meter [facility] Comment on above: Result Comment: PERF ORMED BY: [place] [address] PATHOLOGIST CH[employer]IAN SCIENCE PRACTITIONER ROBYN CASAS M.D. Performed By: #### C BC, LIPASE, LACTIC, CMP #### [address] Glucose [Mass/Vol] 145 mg/dL Normal [facility] Comment on above: Result Comment: [place] [facility] Glucose Reference Range is dependent on time and content of last meal. Glucose of more than 200 mg/dL in a nonstressed, ambulatory subject supports the diagnosis of Diabetes Mellitus. Performed By: #### C BC, LIPASE, LACTIC, CMP #### [address] Glucose [Mass/Vol] 173 mg/dL Normal [facility] Comment on above: Result Comment: [place] [facility] Glucose Reference Range is dependent on time and content of last meal. Glucose of more than 200 mg/dL in a nonstressed, ambulatory subject supports the diagnosis of Diabetes Mellitus. PERFORMED BY: [place] [address] PATHOLOGIST CH[employer]IAN SCIENCE PRACTITIONER ROBYN CASAS M.D. Performed By: #### C BC, LIPASE, LACTIC, CMP #### [facility] [address] Hepatic Panelon 08-06-2021 Albumin [Mass/Vol] 2.3 g/dL Low 3.2-5.5 [facility] Comment on above: Performed By: #### C BC, LIPASE, LACTIC, CMP #### [facility] [address] Albumin/Globulin [Mass ratio] 1.0 {ratio} Normal [facility] Comment on above: Performed By: #### C BC, LIPASE, LACTIC, CMP #### [facility] [address] ALP [Catalytic activity/Vol] 38 U/L Normal 32-92 [facility] Comment on above: Performed By: #### C BC, LIPASE, LACTIC, CMP #### [facility] [address] ALT [Catalytic activity/Vol] 21 U/L Normal 10-60 [facility] Comment on above: Performed By: #### C BC, LIPASE, LACTIC, CMP #### [facility] [address] AST [Catalytic activity/Vol] 21 U/L Normal 10-42 [facility] Comment on above: Performed By: #### C BC, LIPASE, LACTIC, CMP #### [facility] [address] [place] [address] Bilirubin [Mass/Vol] 0.4 mg/dL Normal 0.3-1.2 [facility] Comment on above: Performed By: #### C BC, LIPASE, LACTIC, CMP #### [facility] [address] Bilirubin,Indirect 0.3 mg/dL Normal [facility] Comment on above: Performed By: #### C BC, LIPASE, LACTIC, CMP #### [facility] [address] Bilirubin.indirect [Mass/Vol] 0.1 mg/dL Normal 0.0-0.4 [facility] Comment on above: Performed By: #### C BC, LIPASE, LACTIC, CMP #### [facility] [address] Globulin (S) [Mass/Vol] 2.4 g/dL Normal [facility] Comment on above: Performed By: #### C BC, LIPASE, LACTIC, CMP #### [facility] [address] Protein [Mass/Vol] 4.7 g/dL Low 6.1-7.9 [facility] Comment on above: Performed By: #### C BC, LIPASE, LACTIC, CMP #### [facility] [address] Magnesiumon 08-06-2021 Magnesium [Mass/Vol] 2.1 mg/dL Normal 1.6-2.6 [facility] Comment on above: Result Comment: PERF ORMED BY: [place] [address] PATHOLOGIST CH[employer] SCI[employer] PRACTITIONER ROBYN CASAS M.D. Performed By: #### C BC, LIPASE, LACTIC, CMP #### [facility] [address] Phosphoruson 08-06-2021 Phosphate [Mass/Vol] 1.8 mg/dL Low 2.5-4.6 [facility] Comment on above: Performed By: #### C BC, LIPASE, LACTIC, CMP #### [address] Scan and CBCon 08-06-2021 Additional Comments Normal [facility] Comment on above: Result Comment: Abso lute monocytosis is commonly reactive in nature. However, if unexplained, recommend follow-up CBC in 3 months to evaluate for persistence. PERFORMED BY: [place] [address] PATHOLOGIST CHRISTIAN SCIENCE PRACTITIONER ROBYN CASAS M.D. Performed By: #### C BC, LIPASE, LACTIC, CMP #### [facility] [address] Basophils (Bld) [#/Vol] 0.0 10*3/uL Normal 0.0-0.2 [facility] Comment on above: Performed By: #### C BC, LIPASE, LACTIC, CMP #### [address] Basophils/100 WBC (Bld) 0.3 % Normal . [facility] Comment on above: Performed By: #### C BC, LIPASE, LACTIC, CMP #### [address] Eosinophils (Bld) [#/Vol] 0.1 10*3/uL Normal 0.0-0.45 [facility] Comment on above: Performed By: #### C BC, LIPASE, LACTIC, CMP #### [address] Eosinophils/100 WBC (Bld) 0.6 % Normal . [facility] Comment on above: Performed By: #### C BC, LIPASE, LACTIC, CMP #### [address] Erythrocyte distribution width (RBC) [Ratio] 14.2 % Normal 11.9-15.3 [facility] Comment on above: Performed By: #### C BC, LIPASE, LACTIC, CMP #### [address] Hematocrit (Bld) [Volume fraction] 32.5 % Low 34.0-46.4 [facility] Comment on above: Performed By: #### C BC, LIPASE, LACTIC, CMP #### [address] Hemoglobin (Bld) [Mass/Vol] 10.9 g/dL Low 11.8-15.4 [facility] Comment on above: Performed By: #### C BC, LIPASE, LACTIC, CMP #### [address] Lymphocytes (Bld) [#/Vol] 1.3 10*3/uL Normal 1.00-4.8 [facility] Comment on above: Performed By: #### C BC, LIPASE, LACTIC, CMP #### [address] Lymphocytes/100 WBC (Bld) 12.8 % Normal . [facility] Comment on above: Performed By: #### C BC, LIPASE, LACTIC, CMP #### [address] MCH (RBC) [Entitic mass] 31.6 pg Normal 24.7-34.3 [facility] Comment on above: Performed By: #### C BC, LIPASE, LACTIC, CMP #### [address] MCV (RBC) [Entitic vol] 94.5 fL Normal 80-100 [facility] Comment on above: Performed By: #### C BC, LIPASE, LACTIC, CMP #### [address] Mean Corpuscular HGB Conc 33.5 g/dL Normal 32.0-35.0 [facility] Comment on above: Performed By: #### C BC, LIPASE, LACTIC, CMP #### [address] Monocytes (Bld) [#/Vol] 1.6 10*3/uL High 0.0-0.8 [facility] Comment on above: Performed By: #### C BC, LIPASE, LACTIC, CMP #### [address] Monocytes/100 WBC (Bld) 16.0 % Normal . [facility] Comment on above: Performed By: #### C BC, LIPASE, LACTIC, CMP #### [address] Neutrophils (Bld) [#/Vol] 6.9 10*3/uL Normal 1.8-7.7 [facility] Comment on above: Performed By: #### C BC, LIPASE, LACTIC, CMP #### [address] Neutrophils/100 WBC (Bld) 70.3 % Normal . [facility] Comment on above: Performed By: #### C BC, LIPASE, LACTIC, CMP #### [facility] [address] Nucleated RBC/100 WBC (Bld) [Ratio] 0.1 % Normal 0-0.5 [facility] Comment on above: Performed By: #### C BC, LIPASE, LACTIC, CMP #### [facility] [address] Platelet Estimate Normal Normal Normal [facility] Comment on above: Performed By: #### C BC, LIPASE, LACTIC, CMP #### [facility] [address] Platelet mean volume (Bld) [Entitic vol] 7.3 fL Normal 6.3-10.7 [facility] Comment on above: Performed By: #### C BC, LIPASE, LACTIC, CMP #### [address] Platelet Morphology Normal Normal Normal [facility] Comment on above: Performed By: #### C BC, LIPASE, LACTIC, CMP #### [place] [address] [place] Platelets (Bld) [#/Vol] 183 10*3/uL Normal 150-450 [facility] Comment on above: Performed By: #### C BC, LIPASE, LACTIC, CMP #### [address] RBC (Bld) [#/Vol] 3.44 10*6/uL Low 3.60-5.00 [facility] Comment on above: Performed By: #### C BC, LIPASE, LACTIC, CMP #### [address] RBC morphology finding Nom (Bld) Normal Normal [facility] Comment on above: Performed By: #### C BC, LIPASE, LACTIC, CMP #### [address] WBC (Bld) [#/Vol] 9.9 10*3/uL Normal 4.5-11.0 [facility] Comment on above: Performed By: #### C BC, LIPASE, LACTIC, CMP #### [facility] [address] [place] [address] Basic Metabolic Panelon 07-24 Calcium [Mass/Vol] 8.0 mg/dL Low 8.2-10.2 [facility] Comment on above: Order Comment: Name Collection Type:: Clean-Voided Midstream Performed By: #### U A #### [address] Chloride [Moles/Vol] 112 mmol/L Normal 95-114 [facility] Comment on above: Order Comment: Name Collection Type:: Clean-Voided Midstream Performed By: #### U A #### [address] CO2 [Moles/Vol] 20.1 mmol/L Low 22.0-30.0 [facility] Comment on above: Order Comment: Name Collection Type:: Clean-Voided Midstream Performed By: #### U A #### [address] Creatinine [Mass/Vol] 0.75 mg/dL Normal 0.44-1.03 [facility] Comment on above: Order Comment: Name Collection Type:: Clean-Voided Midstream Performed By: #### U A #### [place] [address] [place] Creatinine Clr Calc Pharmacy 71.76 [facility] Comment on above: Order Comment: Name Collection Type:: Clean-Voided Midstream Performed By: #### U A #### [address] Estimated GFR ( Joey > 60 [facility] Comment on above: Order Comment: Name Collection Type:: Clean-Voided Midstream Result Comment: GFR estimated reference range: According to KDOQI guidelines, <60 ml/min/1.73m2 is sufficient to diagnose a patient with chronic kidney disease. Performed By: #### U A #### [facility] [address] [place] [address] [place] Estimated GFR (Non- Am > 60 Normal [facility] Comment on above: Order Comment: Name Collection Type:: Clean-Voided Midstream Performed By: #### U A #### [address] Glucose [Mass/Vol] 114 mg/dL High 70-100 [facility] Comment on above: Order Comment: Name Collection Type:: Clean-Voided Midstream Result Comment: [place] Glucose Reference Range is dependent on time and content of last meal. Glucose of more than 200 mg/dL in a nonstressed, ambulatory subject supports the diagnosis of Diabetes Mellitus. ADA recommended reference range Performed By: #### U A #### [address] Potassium [Moles/Vol] 3.4 mmol/L Low 3.5-5.1 [facility] Comment on above: Order Comment: Name Collection Type:: Clean-Voided Midstream Performed By: #### U A #### [address] Sodium [Moles/Vol] 143 mmol/L Normal 136-146 [facility] Comment on above: Order Comment: Name Collection Type:: Clean-Voided Midstream Performed By: #### U A #### [address] Urea nitrogen [Mass/Vol] 5 mg/dL Low 9-23 [facility] Comment on above: Order Comment: Name Collection Type:: Clean-Voided Midstream Performed By: #### U A #### [address] Complete Blood Count Auto Di ffon 08-05-2021 Basophils (Bld) [#/Vol] 0.0 10*3/uL Normal 0.0-0.2 [facility] Comment on above: Result Comment: PERF ORMED BY: [place] [address] PATHOLOGIST [employer] ROBYN CASAS M.D. Performed By: #### U A #### [address] Basophils/100 WBC (Bld) 0.0 % Normal . [facility] Comment on above: Performed By: #### U A #### [address] Eosinophils (Bld) [#/Vol] 0.0 10*3/uL Normal 0.0-0.45 [facility] Comment on above: Performed By: #### U A #### [address] Eosinophils/100 WBC (Bld) 0.0 % Normal . [facility] Comment on above: Performed By: #### U A #### [address] Erythrocyte distribution width (RBC) [Ratio] 14.3 % Normal 11.9-15.3 [facility] Comment on above: Performed By: #### U A #### [address] Hematocrit (Bld) [Volume fraction] 37.1 % Normal 34.0-46.4 [facility] Comment on above: Performed By: #### U A #### [address] Hemoglobin (Bld) [Mass/Vol] 12.2 g/dL Normal 11.8-15.4 [facility] Comment on above: Performed By: #### U A #### [address] Lymphocytes (Bld) [#/Vol] 0.5 10*3/uL Low 1.00-4.8 [facility] Comment on above: Performed By: #### U A #### [address] Lymphocytes/100 WBC (Bld) 5.0 % Normal . [facility] Comment on above: Performed By: #### U A #### [address] MCH (RBC) [Entitic mass] 31.5 pg Normal 24.7-34.3 [facility] Comment on above: Performed By: #### U A #### [facility] [address] MCV (RBC) [Entitic vol] 96.1 fL Normal 80-100 [facility] Comment on above: Performed By: #### U A #### [facility] [address] Mean Corpuscular HGB Conc 32.8 g/dL Normal 32.0-35.0 [facility] Comment on above: Performed By: #### U A #### [facility] [address] Monocytes (Bld) [#/Vol] 1.4 10*3/uL High 0.0-0.8 [facility] Comment on above: Performed By: #### U A #### [address] Monocytes/100 WBC (Bld) 13.9 % Normal . [facility] Comment on above: Performed By: #### U A #### [address] Neutrophils (Bld) [#/Vol] 8.4 10*3/uL High 1.8-7.7 [facility] Comment on above: Performed By: #### U A #### [address] Neutrophils/100 WBC (Bld) 81.1 % Normal . [facility] Comment on above: Performed By: #### U A #### [address] Nucleated RBC/100 WBC (Bld) [Ratio] 0.0 % Normal 0-0.5 [facility] Comment on above: Performed By: #### U A #### [address] Platelet mean volume (Bld) [Entitic vol] 7.6 fL Normal 6.3-10.7 [facility] Comment on above: Performed By: #### U A #### [address] [place] [address] [place] Platelets (Bld) [#/Vol] 182 10*3/uL Normal 150-450 [facility] Comment on above: Performed By: #### U A #### [address] RBC (Bld) [#/Vol] 3.86 10*6/uL Normal 3.60-5.00 [facility] Comment on above: Performed By: #### U A #### [address] WBC (Bld) [#/Vol] 10.4 10*3/uL Normal 4.5-11.0 [facility] Comment on above: Performed By: #### U A #### [address] Glucose Poct Glucometerson 1 10-05-2020 Commemt1 Glu2: Cleaned Meter Normal [facility] Comment on above: Result Comment: PERF ORMED BY: [place] [address] PATHOLOGIST [employer]ACTITIONER ROBYN CASAS M.D. Performed By: #### U A #### [address] Glucose [Mass/Vol] 97 mg/dL Normal [facility] Comment on above: Result Comment: [facility] Glucose Reference Range is dependent on time and content of last meal. Glucose of more than 200 mg/dL in a nonstressed, ambulatory subject supports the diagnosis of Diabetes Mellitus. Performed By: #### U A #### [address] Commemt1 Glu2: Cleaned Meter Normal [facility] Comment on above: Result Comment: PERF ORMED BY: [place] [address] PATHOLOGIST CH[employer] SCIENCE PRACTITIONER ROBYN CASAS M.D. Performed By: #### U A #### [place] [address] [place] Glucose [Mass/Vol] 82 mg/dL Normal [facility] Comment on above: Result Comment: [place] om Glucose Reference Range is dependent on time and content of last meal. Glucose of more than 200 mg/dL in a nonstressed, ambulatory subject supports the diagnosis of Diabetes Mellitus. Performed By: #### U A #### [address] Glucose [Mass/Vol] 101 mg/dL Normal [facility] Comment on above: Result Comment: [place] om Glucose Reference Range is dependent on time and content of last meal. Glucose of more than 200 mg/dL in a nonstressed, ambulatory subject supports the diagnosis of Diabetes Mellitus. PERFORMED BY: [place] [address] PATHOLOGIST CH[employer] SCIENCE PRACTITIONER ROBYN CASAS M.D. Performed By: #### U A #### [address] Prealbuminon 08-05-2021 Prealbumin [Mass/Vol] 7.8 mg/dL Low 18.0-38.0 [facility] Comment on above: Order Comment: Name Collection Type:: Clean-Voided Midstream Result Comment: PERF ORMED BY: [place] [address] PATHOLOGIST [employer] PRACTITIONER ROBYN CASAS M.D. Performed By: #### U A #### [address] Basic Metabolic Panelon 07-24 Calcium [Mass/Vol] 8.8 mg/dL Normal 8.2-10.2 [facility] Comment on above: Performed By: #### U A #### [place] [address] [place] Chloride [Moles/Vol] 112 mmol/L Normal 95-114 [facility] Comment on above: Performed By: #### U A #### [address] CO2 [Moles/Vol] 20.1 mmol/L Low 22.0-30.0 [facility] Comment on above: Performed By: #### U A #### [address] Creatinine [Mass/Vol] 0.76 mg/dL Normal 0.44-1.03 [facility] Comment on above: Performed By: #### U A #### [place] [address] [place] Creatinine Clr Calc Pharmacy 71.76 [facility] Comment on above: Result Comment: PERF ORMED BY: [place] [address] PATHOLOGIST CH[employer] SCI[employer] PRACTITIONER ROBYN CASAS M.D. Performed By: #### U A #### [address] Estimated GFR ( Joey > 60 [facility] Comment on above: Result Comment: GFR estimated reference range: According to KDOQI guidelines, <60 ml/min/1.73m2 is sufficient to diagnose a patient with chronic kidney disease. Performed By: #### U A #### [address] Estimated GFR (Non- Am > 60 [facility] Comment on above: Performed By: #### U A #### [address] Glucose [Mass/Vol] 81 mg/dL Normal 70-100 [facility] Comment on above: Result Comment: [place] Glucose Reference Range is dependent on time and content of last meal. Glucose of more than 200 mg/dL in a nonstressed, ambulatory subject supports the diagnosis of Diabetes Mellitus. ADA recommended reference range Performed By: #### U A #### [address] Potassium [Moles/Vol] 3.2 mmol/L Low 3.5-5.1 [facility] Comment on above: Performed By: #### U A #### [place] [address] [place] Sodium [Moles/Vol] 146 mmol/L Normal 136-146 [facility] Comment on above: Performed By: #### U A #### [address] Urea nitrogen [Mass/Vol] 7 mg/dL Low 06-15 [facility] Comment on above: Performed By: #### U A #### [address] Complete Blood Count Auto Di ffon 08-04-2021 Basophils (Bld) [#/Vol] 0.0 10*3/uL Normal 0.0-0.2 [facility] Comment on above: Result Comment: PERF ORMED BY: [place] [address] PATHOLOGIST [employer] PRACTITIONER ROBYN CASAS M.D. Performed By: #### U A #### [address] Basophils/100 WBC (Bld) 0.2 % Normal . [facility] Comment on above: Performed By: #### U A #### [address] Eosinophils (Bld) [#/Vol] 0.0 10*3/uL Normal 0.0-0.45 [facility] Comment on above: Performed By: #### U A #### [address] Eosinophils/100 WBC (Bld) 0.5 % Normal . [facility] Comment on above: Performed By: #### U A #### [address] Erythrocyte distribution width (RBC) [Ratio] 14.3 % Normal 11.9-15.3 [facility] Comment on above: Performed By: #### U A #### [address] Hematocrit (Bld) [Volume fraction] 40.2 % Normal 34.0-46.4 [facility] Comment on above: Performed By: #### U A #### [address] [place] [address] [place] Hemoglobin (Bld) [Mass/Vol] 13.1 g/dL Normal 11.8-15.4 [facility] Comment on above: Performed By: #### U A #### [address] Lymphocytes (Bld) [#/Vol] 0.8 10*3/uL Low 1.00-4.8 [facility] Comment on above: Performed By: #### U A #### [address] Lymphocytes/100 WBC (Bld) 13.1 % Normal . [facility] Comment on above: Performed By: #### U A #### [address] MCH (RBC) [Entitic mass] 31.5 pg Normal 24.7-34.3 [facility] Comment on above: Performed By: #### U A #### [address] MCV (RBC) [Entitic vol] 96.6 fL Normal 80-100 [facility] Comment on above: Performed By: #### U A #### [address] Mean Corpuscular HGB Conc 32.6 g/dL Normal 32.0-35.0 [facility] Comment on above: Performed By: #### U A #### [address] Monocytes (Bld) [#/Vol] 1.0 10*3/uL High 0.0-0.8 [facility] Comment on above: Performed By: #### U A #### [address] Monocytes/100 WBC (Bld) 16.4 % Normal . [facility] Comment on above: Performed By: #### U A #### [address] Neutrophils (Bld) [#/Vol] 4.2 10*3/uL Normal 1.8-7.7 [facility] Comment on above: Performed By: #### U A #### [facility] [address] Neutrophils/100 WBC (Bld) 69.8 % Normal . [facility] Comment on above: Performed By: #### U A #### [facility] [address] [place] [address] [place] Nucleated RBC/100 WBC (Bld) [Ratio] 0.0 % Normal 0-0.5 [facility] Comment on above: Performed By: #### U A #### [facility] [address] Platelet mean volume (Bld) [Entitic vol] 8.1 fL Normal 6.3-10.7 [facility] Comment on above: Performed By: #### U A #### [facility] [address] [place] [address] [place] Platelets (Bld) [#/Vol] 196 10*3/uL Normal 150-450 [facility] Comment on above: Performed By: #### U A #### [facility] [address] [place] [address] [place] RBC (Bld) [#/Vol] 4.16 10*6/uL Normal 3.60-5.00 [facility] Comment on above: Performed By: #### U A #### [facility] [address] [place] [address] [place] WBC (Bld) [#/Vol] 6.0 10*3/uL Normal 4.5-11.0 [facility] Comment on above: Performed By: #### U A #### [facility] [address] [place] [address] [place] XR KUBon 08-04-2021 XR KUB [facility] Main [place] [address] [place] [address] XRay Report Signed Patient: Areli Hawkins MR#: [id number] : 1945 Acct:[id number] Age/Sex: 75 / F ADM Date: 08/01/21 Loc: 3S Room: 9O2670-1 Type: ADM IN Attending Dr: Indio Puga [...] Allan Salinas M.D.08/04/2021 8:32 AM Dictation Location: [place] [address] Transcribed By: [facility] 08/04/21831 Dictated By: Allan Salinas DO 08/04/21 0829 Signed By: 08/04/21 0832 [facility] XR chest 1V portableon 08-04 XR chest 1V portable [facility] Main [place] [address] [place] [address] XRay Report Signed Patient: Areli Hawkins MR#: [id number] : 1945 Acct:[id number] Age/Sex: 75 / F ADM Date: 08/01/21 Loc: 4N Room: [id number] Type: ADM IN Attending Dr: Indio Puga [...] Lucas Jr., M.D.08/04/2021 6:52 PM Dictation Location: [place] [address] Transcribed By: [facility] 08/04/211851 Dictated By: Kvng Lucas Jr, MD 08/04/211849 Signed By: 08/04/211851 Normal [facility] Basic Metabolic Panelon 07-24 Calcium [Mass/Vol] 8.7 mg/dL Normal 8.2-10.2 [facility] Comment on above: Performed By: #### B MP, CBC ####[facility] [id number] Chloride [Moles/Vol] 109 mmol/L Normal 95-114 [facility] Comment on above: Performed By: #### B MP, CBC ####[facility] [id number] CO2 [Moles/Vol] 20.3 mmol/L Low 22.0-30.0 [facility] Comment on above: Performed By: #### B MP, CBC ####[facility] [id number] Creatinine [Mass/Vol] 0.78 mg/dL Normal 0.44-1.03 [facility] Comment on above: Performed By: #### B MP, CBC ####[facility] [id number] [place] [id number] [facility] Creatinine Clr Calc Pharmacy 71.76 [facility] Comment on above: Result Comment: PERF ORMED BY: [facility] [address] [place] [address] PATHOLOGIST CH[employer] PRACTITIONER ROBYN CASAS M.D. Performed By: #### B MP, CBC ####[facility] [id number] [place] [id number] [facility] Estimated GFR ( Joey > 60 [facility] Comment on above: Result Comment: GFR estimated reference range: According to KDOQI guidelines, <60 ml/min/1.73m2 is sufficient to diagnose a patient with chronic kidney disease. Performed By: #### B MP, CBC ####[place] [id number] [place] [id number] [facility] Estimated GFR (Non- Am > 60 Normal [facility] Comment on above: Performed By: #### B MP, CBC ####[place] [id number] [place] [id number] [facility] Glucose [Mass/Vol] 101 mg/dL High 70-100 [facility] Comment on above: Result Comment: [place] Glucose Reference Range is dependent on time and content of last meal. Glucose of more than 200 mg/dL in a nonstressed, ambulatory subject supports the diagnosis of Diabetes Mellitus. ADA recommended reference range Performed By: #### B MP, CBC ####[place] [id number] [facility] Potassium [Moles/Vol] 3.8 mmol/L Normal 3.5-5.1 [facility] Comment on above: Performed By: #### B MP, CBC ####[place] [id number] [facility] Sodium [Moles/Vol] 143 mmol/L Normal 136-146 [facility] Comment on above: Performed By: #### B MP, CBC ####[place] [id number] [facility] Urea nitrogen [Mass/Vol] 6 mg/dL Low 9-23 [facility] Comment on above: Performed By: #### B MP, CBC ####[place] [id number] [facility] Complete Blood Count Auto Di ffon 08-03-2021 Basophils (Bld) [#/Vol] 0.0 10*3/uL Normal 0.0-0.2 [facility] Comment on above: Result Comment: PERF ORMED BY: [facility] [address] [place] [address] PATHOLOGIST CH[employer] PRACTITIONER ROBYN CASAS M.D. Performed By: #### B MP, CBC ####[place] [id number] [facility] Basophils/100 WBC (Bld) 0.2 % Normal . [facility] Comment on above: Performed By: #### B MP, CBC ####[place] [id number] [facility] Eosinophils (Bld) [#/Vol] 0.0 10*3/uL Normal 0.0-0.45 [facility] Comment on above: Performed By: #### B MP, CBC ####[place] [id number] [facility] Eosinophils/100 WBC (Bld) 0.2 % Normal . [facility] Comment on above: Performed By: #### B MP, CBC ####[address] Erythrocyte distribution width (RBC) [Ratio] 14.4 % Normal 11.9-15.3 [facility] Comment on above: Performed By: #### B MP, CBC ####[address] Hematocrit (Bld) [Volume fraction] 39.7 % Normal 34.0-46.4 [facility] Comment on above: Performed By: #### B MP, CBC ####[address] Hemoglobin (Bld) [Mass/Vol] 13.2 g/dL Normal 11.8-15.4 [facility] Comment on above: Performed By: #### B MP, CBC ####[place] [id number] [facility] Lymphocytes (Bld) [#/Vol] 0.7 10*3/uL Low 1.00-4.8 [facility] Comment on above: Performed By: #### B MP, CBC ####[place] [id number] [facility] Lymphocytes/100 WBC (Bld) 7.0 % Normal . [facility] Comment on above: Performed By: #### B MP, CBC ####[address] MCH (RBC) [Entitic mass] 31.6 pg Normal 24.7-34.3 [facility] Comment on above: Performed By: #### B MP, CBC ####[address] MCV (RBC) [Entitic vol] 95.5 fL Normal 80-100 [facility] Comment on above: Performed By: #### B MP, CBC ####[address] Mean Corpuscular HGB Conc 33.1 g/dL Normal 32.0-35.0 [facility] Comment on above: Performed By: #### B MP, CBC ####[address] Monocytes (Bld) [#/Vol] 1.2 10*3/uL High 0.0-0.8 [facility] Comment on above: Performed By: #### B MP, CBC ####[address] Monocytes/100 WBC (Bld) 12.3 % Normal . [facility] Comment on above: Performed By: #### B MP, CBC ####[address] Neutrophils (Bld) [#/Vol] 8.1 10*3/uL High 1.8-7.7 [facility] Comment on above: Performed By: #### B MP, CBC ####[address] Neutrophils/100 WBC (Bld) 80.3 % Normal . [facility] Comment on above: Performed By: #### B MP, CBC ####[address] Nucleated RBC/100 WBC (Bld) [Ratio] 0.0 % Normal 0-0.5 [facility] Comment on above: Performed By: #### B MP, CBC ####[place] [address] Platelet mean volume (Bld) [Entitic vol] 7.8 fL Normal 6.3-10.7 [facility] Comment on above: Performed By: #### B MP, CBC ####[place] [id number] Platelets (Bld) [#/Vol] 210 10*3/uL Normal 150-450 [facility] Comment on above: Performed By: #### B MP, CBC ####[address] RBC (Bld) [#/Vol] 4.16 10*6/uL Normal 3.60-5.00 [facility] Comment on above: Performed By: #### B MP, CBC ####[address] WBC (Bld) [#/Vol] 10.1 10*3/uL Normal 4.5-11.0 [facility] Comment on above: Performed By: #### B MP, CBC ####[address] XR abdomen min 2Von 08-03-20 21 XR abdomen min 2V [facility] Main [place] [address] [place] [address] XRay Report Signed Patient: Areli Hawkins MR#: [id number] : 1945 Acct:[id number] Age/Sex: 75 / F ADM Date: 08/01/21 Loc: Room: [address] [place] [address] Type: ADM IN Attending Dr: Ind[place] Puga [...] Harsh Pickett M.D.08/03/2021 8:21 AM Dictation Location: [place] [address] Transcribed By: [facility] 08/03/21820 Dictated By: Harsh Pickett MD 08/03/21814 Signed By: 08/03/21820 [facility] Basic Metabolic Panelon 07-24 Calcium [Mass/Vol] 8.9 mg/dL Normal 8.2-10.2 [facility] Comment on above: Performed By: #### Michael Mendez, BMP ####[place] [id number] [facility] Chloride [Moles/Vol] 109 mmol/L Normal 95-114 [facility] Comment on above: Performed By: #### Michael Mendez, BMP ####[address] [address] [facility] CO2 [Moles/Vol] 19.9 mmol/L Low 22.0-30.0 [facility] Comment on above: Performed By: #### Michael Mendez, BMP ####[address] [address] [facility] Creatinine [Mass/Vol] 0.70 mg/dL Normal 0.44-1.03 [facility] Comment on above: Performed By: #### Michael Mendez, BMP ####[place] [address] [place] [address] [place] Creatinine Clr Calc Pharmacy 71.76 [facility] Comment on above: Performed By: #### Michael Mendez, BMP ####[place] [address] [place] [address] [facility] Estimated GFR ( Joey > 60 [facility] Comment on above: Result Comment: GFR estimated reference range: According to KDOQI guidelines, <60 ml/min/1.73m2 is sufficient to diagnose a patient with chronic kidney disease. Performed By: #### Michael Mendez, BMP ####[place] [id number] [facility] Estimated GFR (Non- Am > 60 Normal [facility] Comment on above: Performed By: #### Michael Mendez, BMP ####[place] [id number] [facility] Glucose [Mass/Vol] 99 mg/dL Normal 70-100 [facility] Comment on above: Result Comment: [place] Glucose Reference Range is dependent on time and content of last meal. Glucose of more than 200 mg/dL in a nonstressed, ambulatory subject supports the diagnosis of Diabetes Mellitus. ADA recommended reference range Performed By: #### Michael Mendez, BMP ####[place] [id number] [facility] Potassium [Moles/Vol] 3.4 mmol/L Low 3.5-5.1 [facility] Comment on above: Performed By: #### Michael Mendez, BMP ####[place] [id number] [facility] Sodium [Moles/Vol] 141 mmol/L Normal 136-146 [facility] Comment on above: Performed By: #### Michael Mendez, BMP ####[place] [id number] [facility] Urea nitrogen [Mass/Vol] 5 mg/dL Low 9-23 [facility] Comment on above: Performed By: #### Michael , BMP ####[place] [id number] [facility] Complete Blood Count Auto Di ffon 08-02-2021 Basophils (Bld) [#/Vol] 0.0 10*3/uL Normal 0.0-0.2 [facility] Comment on above: Order Comment: Speci men clotted. Redraw requested. Notified Shannen HENAO. Will notify Juwan Gu RN. Result Comment: PERF ORMED BY: [facility] [address] [place] [address] PATHOLOGIST [employer]ITIONER ROBYN CASAS M.D. Performed By: #### C BC ####[address] Basophils/100 WBC (Bld) 0.1 % Normal . [facility] Comment on above: Order Comment: Speci men clotted. Redraw requested. Notified Shannen HENAO. Will notify Juwan Gu RN. Performed By: #### C BC ####[address] Eosinophils (Bld) [#/Vol] 0.0 10*3/uL Normal 0.0-0.45 [facility] Comment on above: Order Comment: Speci men clotted. Redraw requested. Notified Shannen HENAO. Will notify Juwan Gu RN. Performed By: #### C BC ####[address] Eosinophils/100 WBC (Bld) 0.3 % Normal . [facility] Comment on above: Order Comment: Speci men clotted. Redraw requested. Notified Shannen HENAO. Will notify Juwan Gu RN. Performed By: #### C BC ####[address] Erythrocyte distribution width (RBC) [Ratio] 14.2 % Normal 11.9-15.3 [facility] Comment on above: Order Comment: Speci men clotted. Redraw requested. Notified Shannen HENAO. Will notify Juwan Gu RN. Performed By: #### C BC ####[address] Hematocrit (Bld) [Volume fraction] 39.5 % Normal 34.0-46.4 [facility] Comment on above: Order Comment: Speci men clotted. Redraw requested. Notified Shannen TRIPLETT Will notify Juwan Gu RN. Performed By: #### C BC ####[place] [id number] [facility] Hemoglobin (Bld) [Mass/Vol] 13.0 g/dL Normal 11.8-15.4 [facility] Comment on above: Order Comment: Speci men clotted. Redraw requested. Notified Shannen HENAO. Will notify Juwan Gu RN. Performed By: #### C BC ####[address] Lymphocytes (Bld) [#/Vol] 0.8 10*3/uL Low 1.00-4.8 [facility] Comment on above: Order Comment: Speci men clotted. Redraw requested. Notified Shannen HENAO. Will notify Juwan Gu RN. Performed By: #### C BC ####[address] Lymphocytes/100 WBC (Bld) 7.0 % Normal . [facility] Comment on above: Order Comment: Speci men clotted. Redraw requested. Notified Shannen HENAO. Will notify Juwan Gu RN. Performed By: #### C BC ####[address] MCH (RBC) [Entitic mass] 31.3 pg Normal 24.7-34.3 [facility] Comment on above: Order Comment: Speci men clotted. Redraw requested. Notified Shannen HENAO. Will notify Juwan Gu RN. Performed By: #### C BC ####[address] MCV (RBC) [Entitic vol] 95.4 fL Normal 80-100 [facility] Comment on above: Order Comment: Speci men clotted. Redraw requested. Notified Shannen HENAO. Will notify Juwan Gu RN. Performed By: #### C BC ####[address] Mean Corpuscular HGB Conc 32.9 g/dL Normal 32.0-35.0 [facility] Comment on above: Order Comment: Speci men clotted. Redraw requested. Notified Shannen HENAO. Will notify Juwan Gu RN. Performed By: #### C BC ####[address] Monocytes (Bld) [#/Vol] 0.9 10*3/uL High 0.0-0.8 [facility] Comment on above: Order Comment: Speci men clotted. Redraw requested. Notified Shannen HENAO. Will notify Juwan Gu RN. Performed By: #### C BC ####[address] Monocytes/100 WBC (Bld) 7.7 % Normal . [facility] Comment on above: Order Comment: Speci men clotted. Redraw requested. Notified Shannen HENAO. Will notify Juawn Gu RN. Performed By: #### C BC ####[address] Neutrophils (Bld) [#/Vol] 9.5 10*3/uL High 1.8-7.7 [facility] Comment on above: Order Comment: Speci men clotted. Redraw requested. Notified Shannen HENAO. Will notify Juwan Gu RN. Performed By: #### C BC ####[address] Neutrophils/100 WBC (Bld) 84.9 % Normal . [facility] Comment on above: Order Comment: Speci men clotted. Redraw requested. Notified Shannen HENAO. Will notify Juwan Gu RN. Performed By: #### C BC ####[address] Nucleated RBC/100 WBC (Bld) [Ratio] 0.0 % Normal 0-0.5 [facility] Comment on above: Order Comment: Speci men clotted. Redraw requested. Notified Shannen RIEDY. Will notify Juwan Gu RN. Performed By: #### C BC ####[address] Platelet mean volume (Bld) [Entitic vol] 8.2 fL Normal 6.3-10.7 [facility] Comment on above: Order Comment: Speci men clotted. Redraw requested. Notified Shannen HENAO. Will notify Juwan Gu RN. Performed By: #### C BC ####[address] Platelets (Bld) [#/Vol] 193 10*3/uL Normal 150-450 [facility] Comment on above: Order Comment: Speci men clotted. Redraw requested. Notified Shannen HENAO. Will notify Juwan Gu RN. Performed By: #### C BC ####[address] RBC (Bld) [#/Vol] 4.14 10*6/uL Normal 3.60-5.00 [facility] Comment on above: Order Comment: Speci men clotted. Redraw requested. Notified Shannen HENAO. Will notify Juwan Gu RN. Performed By: #### C BC ####[address] WBC (Bld) [#/Vol] 11.2 10*3/uL High 4.5-11.0 [facility] Comment on above: Order Comment: Speci men clotted. Redraw requested. Notified Shannen HENAO. Will notify Juwan Gu RN. Performed By: #### C BC ####[address] Magnesiumon 08-02-2021 Magnesium [Mass/Vol] 1.8 mg/dL Normal 1.6-2.6 [facility] Comment on above: Result Comment: PERF ORMED BY: [facility] [address] [place] [address] PATHOLOGIST CH[employer]IAN SCIENCE PRACTITIONER ROBYN CASAS M.D. Performed By: #### M G, BMP ####[facility] [id number] XR KUBon 08-02-2021 XR KUB [facility] Main [place] [address] [place] [address] XRay Report Signed Patient: Areli Hawkins MR#: [id number] : 1945 Acct:[id number] Age/Sex: 75 / F ADM Date: 08/01/21 Loc: Room: [address] [place] [address] Type: ADM IN Attending Dr: Indio Puga [...] Allan Salinas M.D.08/02/2021 8:28 AM Dictation Location: [place] [address] Transcribed By: [facility] 08/02/21827 Dictated By: Allan Salinas DO 08/02/21809 Signed By: 08/02/21827 [facility] COVID-19 Antigenon 1 COVID-19 [facility] [...] its performance Heaven Disclaimer characteristic determined by [employer] and Heaven Disclaimer validated at [facility]. This Heaven Disclaimer test has not [...] Emergency Use Authorization for Coronavirus Heaven Disclaimer isease2019 during the Public Health Emergency) Heaven Disclaimer [...] is terminated or revoked sooner. PERFORMED BY: [place] [address] PATHOLOGIST CHRISTIAN SCIENCE PRACTITIONER ROBYN CASAS M.D. Normal [facility] Comment on above: Performed By: #### S OFIANEG, COVID-19 HEAVEN #### [address] [address] [facility] COVID-19 [facility] 08-01-2021 SARS-CoV-2 (COVID-19) RNA CHETAN+probe Ql (Unsp spec) Negative Normal Negative [facility] Comment on above: Order Comment: Healt hcare Worker?: N Result Comment: Testing for SARS-CoV-2 by RT-PCR This test was developed and its performance characteristics determined by [employer] ([employer]) and validated at the [facility]. This test has not been FDA [...] is terminated or revoked sooner. PERFORMED BY: [address] [address] PATHOLOGIST CHRISTIAN SCIENCE PRACTITIONER ROBYN CASAS M.D. Performed By: #### C OVID 19 [facility] ####[facility] [id number] [place] [address] [facility] [address] abdomen pelvis wo conon 1 10-01-2020 CT abdomen pelvis wo con [facility] Main [place] [address] [place] [id number] Scan Report Signed Patient: Areli Hawkins MR#: [id number] : 1945 Acct:[id number] Age/Sex: 75 / F ADM Date: 08/01/21 Loc: Room: 3J8353-1 Type: ADM IN Attending Dr: Indio Puga [...] Allan Salinas M.D.08/01/2021 9:44 AM Dictation Location: [place] [address] Transcribed By: [facility] 08/01/21943 Dictated By: Allan Salinas DO 08/01/21937 Signed By: 08/01/21943 Normal [facility] Complete Blood Count Auto Di ffon 08-01-2021 Basophils (Bld) [#/Vol] 0.0 10*3/uL Normal 0.0-0.2 [facility] Comment on above: Result Comment: PERF ORMED BY: [place] [address] PATHOLOGIST CHRISTIAN SCIENCE PRACTITIONER ROBYN CASAS M.D. Performed By: #### C BC, LIPASE, LACTIC, CMP #### [address] Basophils/100 WBC (Bld) 0.4 % Normal . [facility] Comment on above: Performed By: #### C BC, LIPASE, LACTIC, CMP #### [address] Eosinophils (Bld) [#/Vol] 0.1 10*3/uL Normal 0.0-0.45 [facility] Comment on above: Performed By: #### C BC, LIPASE, LACTIC, CMP #### [address] Eosinophils/100 WBC (Bld) 0.8 % Normal . [facility] Comment on above: Performed By: #### C BC, LIPASE, LACTIC, CMP #### [address] Erythrocyte distribution width (RBC) [Ratio] 14.0 % Normal 11.9-15.3 [facility] Comment on above: Performed By: #### C BC, LIPASE, LACTIC, CMP #### [address] Hematocrit (Bld) [Volume fraction] 39.8 % Normal 34.0-46.4 [facility] Comment on above: Performed By: #### C BC, LIPASE, LACTIC, CMP #### [address] Hemoglobin (Bld) [Mass/Vol] 13.3 g/dL Normal 11.8-15.4 [facility] Comment on above: Performed By: #### C BC, LIPASE, LACTIC, CMP #### [address] Lymphocytes (Bld) [#/Vol] 1.0 10*3/uL Normal 1.00-4.8 [facility] Comment on above: Performed By: #### C BC, LIPASE, LACTIC, CMP #### [address] Lymphocytes/100 WBC (Bld) 10.9 % Normal . [facility] Comment on above: Performed By: #### C BC, LIPASE, LACTIC, CMP #### [address] MCH (RBC) [Entitic mass] 31.3 pg Normal 24.7-34.3 [facility] Comment on above: Performed By: #### C BC, LIPASE, LACTIC, CMP #### [address] MCV (RBC) [Entitic vol] 93.7 fL Normal 80-100 [facility] Comment on above: Performed By: #### C BC, LIPASE, LACTIC, CMP #### [address] Mean Corpuscular HGB Conc 33.4 g/dL Normal 32.0-35.0 [facility] Comment on above: Performed By: #### C BC, LIPASE, LACTIC, CMP #### [address] Monocytes (Bld) [#/Vol] 0.9 10*3/uL High 0.0-0.8 [facility] Comment on above: Performed By: #### C BC, LIPASE, LACTIC, CMP #### [facility] [address] [place] [address] [place] Monocytes/100 WBC (Bld) 9.5 % Normal . [facility] Comment on above: Performed By: #### C BC, LIPASE, LACTIC, CMP #### [facility] [address] Neutrophils (Bld) [#/Vol] 7.4 10*3/uL Normal 1.8-7.7 [facility] Comment on above: Performed By: #### C BC, LIPASE, LACTIC, CMP #### [address] Neutrophils/100 WBC (Bld) 78.4 % Normal . [facility] Comment on above: Performed By: #### C BC, LIPASE, LACTIC, CMP #### [place] [address] [place] Nucleated RBC/100 WBC (Bld) [Ratio] 0.1 % Normal 0-0.5 [facility] Comment on above: Performed By: #### C BC, LIPASE, LACTIC, CMP #### [address] Platelet mean volume (Bld) [Entitic vol] 8.5 fL Normal 6.3-10.7 [facility] Comment on above: Performed By: #### C BC, LIPASE, LACTIC, CMP #### [facility] [address] [place] [address] [place] Platelets (Bld) [#/Vol] 194 10*3/uL Normal 150-450 [facility] Comment on above: Performed By: #### C BC, LIPASE, LACTIC, CMP #### [place] [address] [place] RBC (Bld) [#/Vol] 4.25 10*6/uL Normal 3.60-5.00 [facility] Comment on above: Performed By: #### C BC, LIPASE, LACTIC, CMP #### [place] [address] [place] WBC (Bld) [#/Vol] 9.5 10*3/uL Normal 4.5-11.0 [facility] Comment on above: Performed By: #### C BC, LIPASE, LACTIC, CMP #### [facility] [address] [place] [address] Comprehensive Metabolic Pane lizy 08-01-2021 Albumin [Mass/Vol] 3.5 g/dL Normal 3.2-5.5 [facility] Comment on above: Performed By: #### C BC, LIPASE, LACTIC, CMP #### [address] Albumin/Globulin [Mass ratio] 1.3 {ratio} Normal [facility] Comment on above: Performed By: #### C BC, LIPASE, LACTIC, CMP #### [address] ALP [Catalytic activity/Vol] 54 U/L Normal 32-92 [facility] Comment on above: Performed By: #### C BC, LIPASE, LACTIC, CMP #### [address] ALT [Catalytic activity/Vol] 16 U/L Normal 10-60 [facility] Comment on above: Performed By: #### C BC, LIPASE, LACTIC, CMP #### [address] AST [Catalytic activity/Vol] 30 U/L Normal 10-42 [facility] Comment on above: Performed By: #### C BC, LIPASE, LACTIC, CMP #### [address] Bilirubin [Mass/Vol] 0.7 mg/dL Normal 0.3-1.2 [facility] Comment on above: Performed By: #### C BC, LIPASE, LACTIC, CMP #### [address] Calcium [Mass/Vol] 9.1 mg/dL Normal 8.2-10.2 [facility] Comment on above: Performed By: #### C BC, LIPASE, LACTIC, CMP #### [facility] [address] Chloride [Moles/Vol] 106 mmol/L Normal 95-114 [facility] Comment on above: Performed By: #### C BC, LIPASE, LACTIC, CMP #### [facility] [address] CO2 [Moles/Vol] 21.0 mmol/L Low 22.0-30.0 [facility] Comment on above: Performed By: #### C BC, LIPASE, LACTIC, CMP #### [facility] [address] Creatinine [Mass/Vol] 0.77 mg/dL Normal 0.44-1.03 [facility] Comment on above: Performed By: #### C BC, LIPASE, LACTIC, CMP #### [facility] [address] [place] [address] [place] Creatinine Clr Calc Pharmacy 71.76 [facility] Comment on above: Performed By: #### C BC, LIPASE, LACTIC, CMP #### [facility] [address] Estimated GFR ( Joey > 60 [facility] Comment on above: Result Comment: GFR estimated reference range: According to KDOQI guidelines, <60 ml/min/1.73m2 is sufficient to diagnose a patient with chronic kidney disease. Performed By: #### C BC, LIPASE, LACTIC, CMP #### [facility] [address] Estimated GFR (Non- Am > 60 [facility] Comment on above: Performed By: #### C BC, LIPASE, LACTIC, CMP #### [facility] [address] [place] [address] [place] Globulin (S) [Mass/Vol] 2.6 g/dL [facility] Comment on above: Performed By: #### C BC, LIPASE, LACTIC, CMP #### [facility] [address] Glucose [Mass/Vol] 106 mg/dL High 70-100 [facility] Comment on above: Result Comment: [place] Glucose Reference Range is dependent on time and content of last meal. Glucose of more than 200 mg/dL in a nonstressed, ambulatory subject supports the diagnosis of Diabetes Mellitus. ADA recommended reference range Performed By: #### C BC, LIPASE, LACTIC, CMP #### [facility] [address] Potassium [Moles/Vol] 3.2 mmol/L Low 3.5-5.1 [facility] Comment on above: Performed By: #### C BC, LIPASE, LACTIC, CMP #### [facility] [address] Protein [Mass/Vol] 6.1 g/dL Normal 6.1-7.9 [facility] Comment on above: Performed By: #### C BC, LIPASE, LACTIC, CMP #### [facility] [address] Sodium [Moles/Vol] 139 mmol/L Normal 136-146 [facility] Comment on above: Performed By: #### C BC, LIPASE, LACTIC, CMP #### [facility] [address] Urea nitrogen [Mass/Vol] 7 mg/dL Low 9-23 [facility] Comment on above: Performed By: #### C BC, LIPASE, LACTIC, CMP #### [facility] [address] Consultation Noteon 08-01-20 Consultation Note [id number] D:127 Normal [facility] ECG 12 lead ECGon 08-01-2021 ECG 12 lead ECG [facility] Main [place] [address] [place] [address] Electrocardiograph Report Signed Patient: Areli Hawkins MR#: [id number] : 1945 Acct:[id number] Age/Sex: 75 / F ADM Date: 08/01/21 Loc: ER Room: Type: [facility] ER Attending Dr: Ordering Provider: Matt [...] ECGs available Confirmed by MATT MARTINEZ MD ([id number]) on 08/01/2021 5:35:09 AM Referred By: Electronically Signed By:MATT MARTINEZ MD Transcribed By: MUS Signed By Matt [place] Jr, MD 0535 Normal [facility] Lactic Acidon 08-01-2021 Lactate [Moles/Vol] 1.5 mmol/L Normal 0.5-2.2 [facility] Comment on above: Result Comment: PERF ORMED BY: [place] [address] PATHOLOGIST CHRISTIAN SCIENCE PRACTITIONER ROBYN CASAS M.D. Performed By: #### C BC, LIPASE, LACTIC, CMP #### [facility] [address] [place] [address] Lipaseon 08-01-2021 Lipase [Catalytic activity/Vol] 28.0 U/L Normal 22-51 [facility] Comment on above: Result Comment: PERF ORMED BY: [place] [phone] PATHOLOGIST CHRISTIAN SCIENCE PRACTITIONER ROBYN CASAS M.D. Performed By: #### C BC, LIPASE, LACTIC, CMP #### [facility] [address] [place] [address] RAD - MISCon 08-01-2021 RAD - MISC [id number] [facility] [id number] D:127 Normal [facility] Heaven Ag Negativeon 08-01-20 Heaven Ag Negative Negative Normal Negative [facility] Comment on above: Result Comment: This is a duplicate Heaven SARS Antigen (ALEKS) result to be used for statistical tracking purpose only. PERFORMED BY: [place] [address] PATHOLOGIST CHRISTIAN SCIENCE PRACTITIONER ORBYN CASAS M.D. Performed By: #### S CHAPIS MEIRE-Denys REYNOLDSIA #### [place] [address] [place] Urinalysison 08-01-2021 Appearance (U) Clear Normal Clear [facility] Comment on above: Order Comment: Name Collection Type:: Clean-Voided Midstream Performed By: #### U A #### [place] [address] [place] Bilirubin,Urine Negative Normal Negative [facility] Comment on above: Order Comment: Name Collection Type:: Clean-Voided Midstream Performed By: #### U A #### [address] Color (U) Yellow Normal Yellow [facility] Comment on above: Order Comment: Name Collection Type:: Clean-Voided Midstream Performed By: #### U A #### [place] [address] [place] Glucose Ql (U) Normal Normal Normal [facility] Comment on above: Order Comment: Name Collection Type:: Clean-Voided Midstream Performed By: #### U A #### [place] [address] [place] Ketones Ql (U) Negative Normal Negative [facility] Comment on above: Order Comment: Name Collection Type:: Clean-Voided Midstream Performed By: #### U A #### [place] [address] [place] Leukocyte esterase Test strip Ql (U) Negative Normal Negative [facility] Comment on above: Order Comment: Name Collection Type:: Clean-Voided Midstream Performed By: #### U A #### [place] [address] [place] Nitrite,Urine Negative Normal Negative [facility] Comment on above: Order Comment: Name Collection Type:: Clean-Voided Midstream Performed By: #### U A #### [place] [id number] [place] Occult Blood,Urine Negative Normal Negative [facility] Comment on above: Order Comment: Name Collection Type:: Clean-Voided Midstream Result Comment: PERF ORMED BY: [place] [address] PATHOLOGIST CHRISTIAN SCIENCE PRACTITIONER ROBYN CASAS M.D. Performed By: #### U A #### [facility] [address] [place] [address] pH (U) 5.5 [pH] Normal 5.0-9.0 [facility] Comment on above: Order Comment: Name Collection Type:: Clean-Voided Midstream Performed By: #### U A #### [address] Protein,Urine Negative Normal Negative [facility] Comment on above: Order Comment: Name Collection Type:: Clean-Voided Midstream Performed By: #### U A #### [address] Specificy [place],Urine 1.011 Normal 1.001-1.030 [facility] Comment on above: Order Comment: Name Collection Type:: Clean-Voided Midstream Performed By: #### U A #### [address] Urobilinogen,Urine Normal Normal Normal [facility] Comment on above: Order Comment: Name Collection Type:: Clean-Voided Midstream Performed By: #### U A #### [address] XR abdomen 1Von 08-01-2021 XR abdomen 1V [facility] Main [place] [address] [place] [address] XRay Report Signed Patient: Areli Hawkins MR#: [id number] : 1945 Acct:[id number] Age/Sex: 75 / F ADM Date: 08/01/21 Loc: Room: [address] [place] [address] Type: ADM IN Attending Dr: Indio Puga [...] Harsh Pickett M.D.08/01/2021 8:52 AM Dictation Location: [place] [address] Transcribed By: [facility] 08/01/21851 Dictated By: Harsh Pickett MD 08/01/2150 Signed By: 08/01/21851 [facility] CBC AUTO DIFFon 07-31-2021 BASO # 0.0 103/ul Normal 0.0-0.1 [facility] Comment on above: Performed By: #### C BC #### [facility] [address] [place] [address] Dr. Millie Flores Basophils/100 WBC (Bld) 0.4 % Normal 0.2-2.0 [facility] Comment on above: Performed By: #### C BC #### [facility] [address] [place] [address] Dr. Millie Flores EO # 0.2 103/ul Normal 0.0-0.7 [facility] Comment on above: Performed By: #### C BC #### [facility] [address] [place] [address] Dr. Millie Flores Eosinophils/100 WBC (Bld) 2.2 % Normal 0.9-7.0 [facility] Comment on above: Performed By: #### C BC #### [facility] [address] [place] [address] Dr. Millie Florse Erythrocyte distribution width (RBC) [Ratio] 13.9 % Normal 11.0-15.0 [facility] Comment on above: Performed By: #### C BC #### [facility] [address] [place] [address] Dr. Millie Flores Hematocrit (Bld) [Volume fraction] 35.7 % Critically low 36.0-48.0 [facility] Comment on above: Performed By: #### C BC #### [facility] [address] [place] [address] Dr. Millie Flores Hemoglobin (Bld) [Mass/Vol] 11.2 g/dL Critically low 12.0-16.0 [facility] Comment on above: Performed By: #### C BC #### [facility] [address] [place] [address] Dr. Millie Flores IG # 0.04 10e3/ul Critically high 0.00-0.03 [facility] [place] Comment on above: Performed By: #### C BC #### [facility] [address] [place] [address] Dr. Millie Flores IG % 0.5 % Normal 0.0-0.5 [facility] Comment on above: Performed By: #### C BC #### [facility] [address] [place] [address] Dr. Millie Flores LYMPH # 2.3 103/ul Normal 1.2-3.8 [facility] Comment on above: Performed By: #### C BC #### [facility] [address] [place] [address] Dr. Millie Flores Lymphocytes/100 WBC (Bld) 31.7 % Normal 20.5-60.0 [facility] Comment on above: Performed By: #### C BC #### [facility] [address] [place] [address] Dr. Millie Flores MANUAL DIFF REQ NO Normal [facility] Comment on above: Performed By: #### C BC #### [facility] [address] [place] [address] Dr. Millie Flores MCH (RBC) [Entitic mass] 31.0 pg Normal 26.7-34.0 [facility] Comment on above: Performed By: #### C BC #### [facility] [address] [address] [address] Millie Flores MCHC (RBC) [Mass/Vol] 31.4 g/dL Normal 29.9-35.2 [facility] Comment on above: Performed By: #### C BC #### [facility] [address] [place] [address] Dr. Millie Flores MCV (RBC) [Entitic vol] 98.9 fL Normal 81.0-99.0 [facility] Comment on above: Performed By: #### C BC #### [facility] [address] [place] [address] Dr. Millie Flores MONO # 0.9 103/ul Critically high 0.3-0.8 [facility] Comment on above: Performed By: #### C BC #### [facility] [address] [place] [address] Dr. Millie Flores Monocytes/100 WBC (Bld) 12.5 % Critically high 1.7-12.0 [facility] Comment on above: Performed By: #### C BC #### [facility] [address] [place] [address] Dr. Millie Flores NEUT # 3.8 103/ul Normal 1.4-6.5 [facility] Comment on above: Performed By: #### C BC #### [facility] [address] [place] [address] Dr. Millie Flores Neutrophils/100 WBC (Bld) 52.7 % Normal 43.0-75.0 [facility] Comment on above: Performed By: #### C BC #### [facility] [address] [place] [address] Dr. Millie Flores Platelet mean volume (Bld) [Entitic vol] 10.2 fL Normal 9.5-13.5 [facility] Comment on above: Performed By: #### C BC #### [facility] [address] [place] [address] Dr. Millie Flores PLT 165 103/ul Normal 150-450 [facility] Comment on above: Performed By: #### C BC #### [facility] [address] [place] [address] Dr. Millie Flores RBC 3.61 106/ul Critically low 4.20-5.40 [facility] Comment on above: Performed By: #### C BC #### [facility] [address] [place] [address] Dr. Millie Flores WBC 7.3 103/ul Normal 4.0-11.0 [facility] Comment on above: Performed By: #### C BC #### [facility] [address] [place] [address] Dr. Millie Flores CULTURE URINEon 07-31-2021 CULTURE [...] F Trimethoprim/Sulfametho xazole <=[address] [facility] Comment on above: Performed By: #### B MP #### [facility] [address] [place] [address] Dr. Millie Flores PROF CHEM 8 (BAS METB)on Anion gap [Moles/Vol] 11.5 mmol/L Normal [facility] Comment on above: Performed By: #### B MP #### [facility] [address] [place] [address] Dr. Millie Flores Calcium [Mass/Vol] 8.2 mg/dL Critically low 8.4-10.2 [facility] Comment on above: Performed By: #### B MP #### [facility] [address] [place] [address] Dr. Millie Flores Chloride [Moles/Vol] 109 mmol/L Critically high 98-107 [facility] Comment on above: Performed By: #### B MP #### [facility] [address] [place] [address] [address] Millie Flores CO2 [Moles/Vol] 26.4 mmol/L Normal 22.0-30.0 [facility] Comment on above: Performed By: #### B MP #### [facility] [address] [place] [address] [address] Millie Flores Creatinine [Mass/Vol] 0.69 mg/dL Normal 0.52-1.04 [facility] Comment on above: Performed By: #### B MP #### [facility] [address] [place] [address] [address] Millie Flores EGFR-AF COLOMBIAN >60 Normal >=60 [facility] Comment on above: Performed By: #### B MP #### [facility] [address] [place] [address] [address] Millie Flores EGFR-NON AF COLOMBIAN >60 Normal >=60 [facility] Comment on above: Performed By: #### B MP #### [facility] [address] [place] [address] [address] Millie Flores Glucose [Mass/Vol] 92 mg/dL Normal 74-106 [facility] Comment on above: Performed By: #### B MP #### [facility] [address] [address] [address] Millie Flores Potassium [Moles/Vol] 3.9 mmol/L Normal 3.4-5.0 [facility] Comment on above: Performed By: #### B MP #### [facility] [address] [place] [address] [address] Millie Flores Sodium [Moles/Vol] 143 mmol/L Normal 137-145 [facility] Comment on above: Performed By: #### B MP #### [facility] [address] [place] [address] [address] Millie Flores Urea nitrogen [Mass/Vol] 8.0 mg/dL Normal 7.0-17.0 [facility] Comment on above: Performed By: #### B MP #### [facility] [address] [place] [address] Dr. Millie Flores Urea nitrogen/Creatinine [Mass ratio] 11.6 mg/mg Normal [facility] Comment on above: Performed By: #### B MP #### [facility] [address] [place] [address] Dr. Millie Flores CBC AUTO DIFFon 07-30-2021 BASO # 0.1 103/ul Normal 0.0-0.1 [facility] Comment on above: Performed By: #### C BC #### [facility] [address] [place] [address] Dr. Millie Flores Basophils/100 WBC (Bld) 0.4 % Normal 0.2-2.0 [facility] Comment on above: Performed By: #### C BC #### [facility] [address] [place] [address] Dr. Millie Flores EO # 0.0 103/ul Normal 0.0-0.7 [facility] Comment on above: Performed By: #### C BC #### [facility] [address] [place] [address] Dr. Millie Flores Eosinophils/100 WBC (Bld) 0.3 % Critically low 0.9-7.0 [facility] Comment on above: Performed By: #### C BC #### [facility] [address] [place] [address] Dr. Millie Flores Erythrocyte distribution width (RBC) [Ratio] 13.5 % Normal 11.0-15.0 [facility] Comment on above: Performed By: #### C BC #### [facility] [address] [place] [address] Dr. Millie Flores Hematocrit (Bld) [Volume fraction] 41.5 % Normal 36.0-48.0 [facility] Comment on above: Performed By: #### C BC #### [facility] [address] [place] [address] Dr. Millie Flores Hemoglobin (Bld) [Mass/Vol] 13.7 g/dL Normal 12.0-16.0 [facility] Comment on above: Performed By: #### C BC #### [facility] [address] [place] [address] Dr. Millie Flores IG # 0.05 10e3/ul Critically high 0.00-0.03 [facility] [place] Comment on above: Performed By: #### C BC #### [facility] [address] [place] [address] Dr. Millie Flores IG % 0.4 % Normal 0.0-0.5 [facility] Comment on above: Performed By: #### C BC #### [facility] [address] [place] [address] Dr. Millie Flores LYMPH # 1.8 103/ul Normal 1.2-3.8 [facility] Comment on above: Performed By: #### C BC #### [facility] [address] [place] [address] Dr. Millie Flores Lymphocytes/100 WBC (Bld) 14.7 % Critically low 20.5-60.0 [facility] Comment on above: Performed By: #### C BC #### [facility] [address] [place] [address] Dr. Millie Flores MANUAL DIFF REQ NO Normal [facility] Comment on above: Performed By: #### C BC #### [facility] [address] [place] [address] Dr. Millie Flores MCH (RBC) [Entitic mass] 31.5 pg Normal 26.7-34.0 [facility] Comment on above: Performed By: #### C BC #### [facility] [address] [place] [address] Dr. Millie Flores MCHC (RBC) [Mass/Vol] 33.0 g/dL Normal 29.9-35.2 [facility] Comment on above: Performed By: #### C BC #### [facility] [address] [place] [address] Dr. Millie Flores MCV (RBC) [Entitic vol] 95.4 fL Normal 81.0-99.0 [facility] Comment on above: Performed By: #### C BC #### [facility] [address] [place] [address] Dr. Millie Flores MONO # 1.5 103/ul Critically high 0.3-0.8 [facility] Comment on above: Performed By: #### C BC #### [facility] [address] [place] [address] [address] Millie Flores Monocytes/100 WBC (Bld) 12.7 % Critically high 1.7-12.0 [facility] Comment on above: Performed By: #### C BC #### [facility] [address] [place] [address] Dr. Millie Flores NEUT # 8.7 103/ul Critically high 1.4-6.5 [facility] Comment on above: Performed By: #### C BC #### [facility] [address] [place] [address] Dr. Millie Flores Neutrophils/100 WBC (Bld) 71.5 % Normal 43.0-75.0 [facility] Comment on above: Performed By: #### C BC #### [facility] [address] [place] [address] Dr. Millie Flores Platelet mean volume (Bld) [Entitic vol] 10.2 fL Normal 9.5-13.5 [facility] Comment on above: Performed By: #### C BC #### [facility] [address] [place] [address] Dr. Millie Flores PLT 218 103/ul Normal 150-450 [facility] Comment on above: Performed By: #### C BC #### [facility] [address] [place] [address] Dr. Millie Flores RBC 4.35 106/ul Normal 4.20-5.40 [facility] Comment on above: Performed By: #### C BC #### [facility] [address] [place] [address] Dr. Millie Flores WBC 12.1 103/ul Critically high 4.0-11.0 [facility] Comment on above: Performed By: #### C BC #### [facility] [address] [place] [address] Dr. Millie Flores PROF CHEM 8 (BAS METB)on Anion gap [Moles/Vol] 13.9 mmol/L Normal [facility] Comment on above: Performed By: #### C BC #### [facility] [address] [address] [address] Millie Flores Calcium [Mass/Vol] 8.8 mg/dL Normal 8.4-10.2 [facility] Comment on above: Performed By: #### C BC #### [facility] [address] [address] [address] Millie Flores Chloride [Moles/Vol] 105 mmol/L Normal 98-107 [facility] Comment on above: Performed By: #### C BC #### [facility] [address] [place] [address] Dr. Millie Flores CO2 [Moles/Vol] 25.7 mmol/L Normal 22.0-30.0 [facility] Comment on above: Performed By: #### C BC #### [facility] [address] [place] [address] Dr. Millie Flores Creatinine [Mass/Vol] 0.73 mg/dL Normal 0.52-1.04 [facility] Comment on above: Performed By: #### C BC #### [facility] [address] [place] [address] Dr. Millie Flores EGFR-AF COLOMBIAN >60 Normal >=60 [facility] Comment on above: Performed By: #### C BC #### [facility] [address] [place] [address] Dr. Millie Flores EGFR-NON AF COLOMBIAN >60 Normal >=60 [facility] Comment on above: Performed By: #### C BC #### [facility] [address] [address] [address] Millie Flores Glucose [Mass/Vol] 120 mg/dL Critically high 74-106 [facility] Comment on above: Performed By: #### C BC #### [facility] [address] [place] [address] Dr. Millie Flores Potassium [Moles/Vol] 3.6 mmol/L Normal 3.4-5.0 [facility] Comment on above: Performed By: #### C BC #### [facility] [address] [address] [address] Millie Flores Sodium [Moles/Vol] 141 mmol/L Normal 137-145 [facility] Comment on above: Performed By: #### C BC #### [facility] [address] [address] [address] Millie Flores Urea nitrogen [Mass/Vol] 13.0 mg/dL Normal 7.0-17.0 [facility] Comment on above: Performed By: #### C BC #### [facility] [address] [address] [address] Millie Flores Urea nitrogen/Creatinine [Mass ratio] 17.8 mg/mg Normal [facility] Comment on above: Performed By: #### C BC #### [facility] [address] [place] [address] Dr. Millie Flores XR ABD FLAT UP_PA [...] GEOVANI SELBY Date: 2021-07-30 09:44 Normal [facility] AMYLASEon 07-29-2021 Amylase [Catalytic activity/Vol] 105 U/L Normal 31-110 [facility] Comment on above: Performed By: #### C BC #### [facility] [address] [place], [place] [id number] Dr. Millie Flores CBC W MANUAL DIFFon 07-29-20 21 ATYPICAL LYMPH # Normal [facility] Comment on above: Performed By: #### C BCMAN #### [facility] [address] [place] [address] Dr. Millie Flores ATYPICAL LYMPH % Normal [facility] Comment on above: Performed By: #### C BCMAN #### [facility] [address] [address] [address] Millie Flores BAND # Normal 0.0-0.3 [facility] Comment on above: Performed By: #### C BCMAN #### [facility] [address] [place] [address] Dr. Millie Flores BAND % Normal 0-5 [facility] Comment on above: Performed By: #### C BCMAN #### [facility] [address] [address] [address] Millie Flores BASOM # 0.00 103/ul Normal 0.00-0.10 [facility] Comment on above: Performed By: #### C BCMAN #### [facility] [address] [place] [address] Dr. Millie Flores BASOM % 0.0 % Critically low 0.2-2.0 [facility] Comment on above: Performed By: #### C BCMAN #### [facility] [address] [place] [address] Dr. Millie Flores BLAST # Normal [facility] Comment on above: Performed By: #### C BCMAN #### [facility] [address] [place] [address] Dr. Millie Flores BLAST % Normal [facility] Comment on above: Performed By: #### C BCMEGAN #### [facility] [address] [place] [address] Dr. Millie Flores CORRECTED WBC Normal 4.0-11.0 [facility] Comment on above: Performed By: #### C BCMAN #### [facility] [address] [address] [address] Millie Flores EOS # 0.00 103/ul Normal 0.00-0.70 [facility] Comment on above: Performed By: #### C BCMAN #### [facility] [address] [place] [address] Dr. Millie Flores EOS% 0.0 % Critically low 0.9-7.0 [facility] Comment on above: Performed By: #### C GEOFFREY #### [facility] [address] [address] [address] Millie Flores HCT 44.2 % Normal 36.0-48.0 [facility] Comment on above: Performed By: #### C GEOFFREY #### [facility] [address] [address] [address] Millie Flores HGB 14.6 g/dl Normal 12.0-16.0 [facility] Comment on above: Performed By: #### C GEOFFREY #### [facility] [address] [address] [address] Millie Flores LYMPHM # 1.93 103/ul Normal 1.20-3.80 [facility] Comment on above: Performed By: #### C GEOFFREY #### [facility] [address] [place] [address] Dr. Millie Flores LYMPHM% 11.0 % Critically low 20.5-60.0 [facility] Comment on above: Performed By: #### C GEOFFREY #### [facility] [address] [address] [address] Millie Flores MCH 31.2 pg Normal 26.7-34.0 [facility] Comment on above: Performed By: #### C GEOFFREY #### [facility] [address] [place] [address] Dr. Millie Flores MCHC 33.0 g/dl Normal 29.9-35.2 [facility] Comment on above: Performed By: #### C GEOFFREY #### [facility] [address] [address] [address] Millie Flores MCV 94.4 fL Normal 81.0-99.0 [facility] Comment on above: Performed By: #### C GEOFFREY #### [facility] [address] [place] [address] Dr. Millie Flores METAMYELOCYTE # Normal [facility] Comment on above: Performed By: #### Bharat HALE #### [facility] [address] [place] [address] Dr. Millie Flores METAMYELOCYTE % Normal [facility] Comment on above: Performed By: #### C BCMAN #### [facility] [address] [place] [address] Dr. Millie Flores MONOM# 1.57 103/ul Critically high 0.30-0.80 [facility] Comment on above: Performed By: #### C BCMAN #### [facility] [address] [place] [address] Dr. Millie Flores MONOM% 9.0 % Normal 1.7-12.0 [facility] Comment on above: Performed By: #### C BCMAN #### [facility] [address] [place] [address] Dr. Millie Flores MPV 9.9 fL Normal 9.5-13.5 [facility] Comment on above: Performed By: #### C GEOFFREY #### [facility] [address] [place] [address] Dr. Millie Flores MYELOCYTE # Normal [facility] Comment on above: Performed By: #### C GEOFFREY #### [facility] [address] [place] [address] Dr. Millie Flores MYELOCYTE % Normal [facility] Comment on above: Performed By: #### C GEOFFREY #### [facility] [address] [place] [address] Dr. Millie Flores NRBC Normal [facility] Comment on above: Performed By: #### C BCMEGAN #### [facility] [address] [place] [address] Dr. Millie Flores PLT 258 103/ul Normal 150-450 [facility] Comment on above: Performed By: #### C BCMAN #### [facility] [address] [place] [address] Dr. Millie Flores RBC 4.68 106/ul Normal 4.20-5.40 [facility] Comment on above: Performed By: #### C BCMEGAN #### [facility] [address] [place] [address] Dr. Millie Flores RDW 13.5 % Normal 11.0-15.0 [facility] Comment on above: Performed By: #### C BCMAN #### [facility] [address] [place], [place] [address] Dr. Millie Flores SEG # 14.00 103/ul Critically high 1.40-6.50 [facility] [place] Comment on above: Performed By: #### C BCMAN #### [facility] [address] [place], [place] [address] Dr. Millie Flores SEG % 80.0 % Critically high 43.0-75.0 [facility] Comment on above: Performed By: #### C BCMAN #### [facility] [address] [place], [place] [address] Dr. Millie Flores WBC 17.5 103/ul Critically high 4.0-11.0 [facility] Comment on above: Performed By: #### C BCMAN #### [facility] [address] [place], [place] [address] ABD/PELVIS WO CONon [...] MORENO JORGENSEN Date: 2021-07-29 18:25 Normal [facility] Covid-19 PCR ([facility])on SARS-CoV-2 (COVID-19) RNA CHETAN+probe Ql (Unsp spec) Not detected Normal NOT DETECTED [facility] Comment on above: Result Comment: This test is not yet approved or cleared by the [place] FDA. When there are no FDA-approved or cleared tests available, and other criteria are met, FDA can make tests available under an emergency access mechanism called an Emergency Use Authorization (EUA). The EUA for this test is supported by the Early Morning of Health and Human Service's (HHS's) declaration [...] SARS-CoV-2. Performed By: #### C VDTB #### [facility] [address] [place] [address] Dr. Millie MALCOLM URINE PROFILEon 1 Bilirubin Ql (U) Negative Normal NEGATIVE [facility] Comment on above: Performed By: #### U MICRO, ERUR #### [facility] [address] [address] [address] Millie Flores Clarity (U) CLEAR Normal CLEAR [facility] Comment on above: Performed By: #### U MICRO, ERUR #### [facility] [address] [place] [address] Dr. Millie Flores Color (U) YELLOW Normal YELLOW [facility] Comment on above: Performed By: #### U MICRO, ERUR #### [facility] [address] [place] [address] Dr. Millie Flores ERUAHD A micrscopic examination will be performed if indicated. Normal [facility] Comment on above: Performed By: #### U MICRO, ERUR #### [facility] [address] [place] [address] Dr. Millie Flores Glucose Ql (U) Negative Normal NEGATIVE [facility] Comment on above: Performed By: #### U MICRO, ERUR #### [facility] [address] [place] [address] Dr. Millie Flores Hemoglobin Ql (U) TRACE-INTACT Abnormal NEGATIVE [facility] Comment on above: Performed By: #### U MICRO, ERUR #### [facility] [address] [place] [address] Dr. Millie Flores Ketones Ql (U) TRACE Abnormal NEGATIVE [facility] Comment on above: Performed By: #### U MICRO, ERUR #### [facility] [address] [address] [address] Millie Flores LEUKOCYTES SMALL Abnormal NEGATIVE [facility] Comment on above: Performed By: #### U MICRO, ERUR #### [facility] [address] [address] [address] Millie Flores Nitrite Ql (U) Negative Normal NEGATIVE [facility] Comment on above: Performed By: #### U MICRO, ERUR #### [facility] [address] [place] [address] Dr. Millie Flores pH (U) 6.5 [pH] Normal 5-9 [facility] Comment on above: Performed By: #### U MICRO, ERUR #### [facility] [address] [place] [address] Dr. Millie Flores SPEC GRAVITY 1.020 Normal 1.005-<=1.[address] [facility] Comment on above: Performed By: #### U MICRO, ERUR #### [facility] [address] [place] [address] Dr. Millie Flores UA PROTEIN TRACE Normal NEGATIVE/ TRACE [facility] Comment on above: Performed By: #### U MICRO, ERUR #### [facility] [address] [place] [address] Dr. Millie Flores UR MICRO IND INDICATED Normal [facility] Comment on above: Performed By: #### U MICRO, ERUR #### [facility] [address] [place] [address] Dr. Millie Flores Urobilinogen Qn (U) 1.0 {Robert'U}/dL Normal 0.2 - 1. 0 [facility] Comment on above: Performed By: #### U MICRO, ERUR #### [facility] [address] [place] [address] Dr. Millie Flores LIPASEon 07-29-2021 Lipase [Catalytic activity/Vol] 123.0 U/L Normal 23.0-300.0 [facility] Comment on above: Performed By: #### C BC #### [facility] [address] [place] [address] Dr. Millie Flores PROF 14(COMP METB)on 021 Albumin [Mass/Vol] 3.9 g/dL Normal 3.5-5.0 [facility] Comment on above: Performed By: #### C BC #### [facility] [address] [place] [address] Dr. Millie Flores Albumin/Globulin [Mass ratio] 1.1 {ratio} Normal [facility] Comment on above: Performed By: #### C BC #### [facility] [address] [place] [address] Dr. Millie Flores ALP [Catalytic activity/Vol] 89 U/L Normal 38-126 [facility] Comment on above: Performed By: #### C BC #### [facility] [address] [address] [address] Millie Flores ALT [Catalytic activity/Vol] 17 U/L Normal 9-52 [facility] Comment on above: Performed By: #### C BC #### [facility] [address] [place] [address] Dr. Millie Flores Anion gap [Moles/Vol] 12.3 mmol/L Normal [facility] Comment on above: Performed By: #### C BC #### [facility] [address] [address] [address] Millie Flores AST [Catalytic activity/Vol] 21 U/L Normal 14-36 [facility] Comment on above: Performed By: #### C BC #### [facility] [address] [place] [address] Dr. Millie Flores Bilirubin [Mass/Vol] 0.6 mg/dL Normal 0.2-1.3 [facility] Comment on above: Performed By: #### C BC #### [facility] [address] [place] [address] Dr. Millie Flores Calcium [Mass/Vol] 9.7 mg/dL Normal 8.4-10.2 [facility] Comment on above: Performed By: #### C BC #### [facility] [address] [place] [address] Dr. Millie Flores Chloride [Moles/Vol] 100 mmol/L Normal 98-107 [facility] Comment on above: Performed By: #### C BC #### [facility] [address] [address] [address] Millie Flores CO2 [Moles/Vol] 26.7 mmol/L Normal 22.0-30.0 [facility] Comment on above: Performed By: #### C BC #### [facility] [address] [place] [address] Dr. Millie Flores Creatinine [Mass/Vol] 0.95 mg/dL Normal 0.52-1.04 [facility] Comment on above: Performed By: #### C BC #### [facility] [address] [address] [address] Millie Flores EGFR-AF COLOMBIAN >60 Normal >=60 [facility] Comment on above: Performed By: #### C BC #### [facility] [address] [address] [address] Millie Flores EGFR-NON AF COLOMBIAN 58 mL/min/1.73m2 Critically low >=60 [facility] Comment on above: Performed By: #### C BC #### [facility] [address] [address] [address] Millie Flores Globulin (S) [Mass/Vol] 3.7 g/dL Normal [facility] Comment on above: Performed By: #### C BC #### [facility] [address] [address] [address] Millie Flores Glucose [Mass/Vol] 118 mg/dL Critically high 74-106 [facility] Comment on above: Performed By: #### C BC #### [facility] [address] [address] [address] Millie Flores Potassium [Moles/Vol] 3.0 mmol/L Critically low 3.4-5.0 [facility] Comment on above: Performed By: #### C BC #### [facility] [address] [address] [address] Millie Flores Protein [Mass/Vol] 7.6 g/dL Normal 6.1-8.2 [facility] Comment on above: Performed By: #### C BC #### [facility] [address] [address] [address] Millie Flores Sodium [Moles/Vol] 136 mmol/L Critically low 137-145 [facility] Comment on above: Performed By: #### C BC #### [facility] [address] [address] [address] iMllie Flores Urea nitrogen [Mass/Vol] 14.0 mg/dL Normal 7.0-17.0 [facility] Comment on above: Performed By: #### C BC #### [facility] [address] [address] [address] Millie Flores Urea nitrogen/Creatinine [Mass ratio] 14.7 mg/mg Normal [facility] Comment on above: Performed By: #### C BC #### [facility] [address] [place] [address] Dr. Millie Flores URINE MICROSCOPIC ONLYon BACTERIA TRACE Abnormal NONE SEEN [facility] Comment on above: Performed By: #### U MICRO, ERUR #### [facility] [address] [place] [address] Dr. Millie Flores Bacteria identified Cx Nom (U) INDICATED Normal [facility] Comment on above: Performed By: #### U MICRO, ERUR #### [facility] [address] [place] [address] Dr. Millie Flores CAST NONE SEEN Normal NONE SEEN [facility] Comment on above: Performed By: #### U MICRO, ERUR #### [facility] [address] [place] [address] Dr. Millie Flores Crystals LM Nom (Urine sed) NONE SEEN Normal NONE SEEN [facility] Comment on above: Performed By: #### U MICRO, ERUR #### [facility] [address] [place] [address] Dr. Millie Flores Epithelial cells LM Ql (Urine sed) FEW Abnormal NONE SEEN /RARE [facility] Comment on above: Performed By: #### U MICRO, ERUR #### [facility] [address] [place] [address] Dr. Millie Flores MUCOUS SMALL Abnormal NONE SEEN [facility] Comment on above: Performed By: #### U MICRO, ERUR #### [facility] [address] [place] [address] Dr. Millie Flores RBC 0-2 Normal 0-2 [facility] Comment on above: Performed By: #### U MICRO, ERUR #### [facility] [address] [place] [address] Dr. Millie Flores WBC 2-5 Abnormal NONE SEEN [facility] Comment on above: Performed By: #### U MICRO, ERUR #### [facility] [address] [place] [address] Dr. Millie Flores CULTURE URINEon 07-21-2021 CULTURE [...] Trimethoprim/Sulfametho xazole <=20 S F Normal [facility] Comment on above: Performed By: #### B MP #### [facility] [address] [place] [address] Dr. Millie Flores CBC AUTO DIFFon 07-19-2021 BASO # 0.1 103/ul Normal 0.0-0.1 [facility] Comment on above: Performed By: #### C BC #### [facility] [address] [place] [address] Dr. Millie Flores Basophils/100 WBC (Bld) 0.4 % Normal 0.2-2.0 [facility] Comment on above: Performed By: #### C BC #### [facility] [address] [place] [address] Dr. Millie Flores EO # 0.1 103/ul Normal 0.0-0.7 [facility] Comment on above: Performed By: #### C BC #### [facility] [address] [place] [address] Dr. Millie Flores Eosinophils/100 WBC (Bld) 0.9 % Normal 0.9-7.0 [facility] Comment on above: Performed By: #### C BC #### [facility] [address] [place] [address] Dr. Millie Flores Erythrocyte distribution width (RBC) [Ratio] 13.9 % Normal 11.0-15.0 [facility] Comment on above: Performed By: #### C BC #### [facility] [address] [address] [address] Millie Flores Hematocrit (Bld) [Volume fraction] 40.9 % Normal 36.0-48.0 [facility] Comment on above: Performed By: #### C BC #### [facility] [address] [place] [address] Dr. Millie Flores Hemoglobin (Bld) [Mass/Vol] 13.3 g/dL Normal 12.0-16.0 [facility] Comment on above: Performed By: #### C BC #### [facility] [address] [place] [address] Dr. Millie Flores IG # 0.05 10e3/ul Critically high 0.00-0.03 [facility] [place] Comment on above: Performed By: #### C BC #### [facility] [address] [place] [address] Dr. Millie Flores IG % 0.4 % Normal 0.0-0.5 [facility] Comment on above: Performed By: #### C BC #### [facility] [address] [place] [address] Dr. Millie Flores LYMPH # 2.7 103/ul Normal 1.2-3.8 [facility] Comment on above: Performed By: #### C BC #### [facility] [address] [place] [address] Dr. Millie Flores Lymphocytes/100 WBC (Bld) 20.2 % Critically low 20.5-60.0 [facility] Comment on above: Performed By: #### C BC #### [facility] [address] [place] [address] Dr. Millie Flores MANUAL DIFF REQ NO Normal [facility] Comment on above: Performed By: #### C BC #### [facility] [address] [place] [address] Dr. Millie Flores MCH (RBC) [Entitic mass] 31.0 pg Normal 26.7-34.0 [facility] Comment on above: Performed By: #### C BC #### [facility] [address] [address] [address] Millie Flores MCHC (RBC) [Mass/Vol] 32.5 g/dL Normal 29.9-35.2 [facility] Comment on above: Performed By: #### C BC #### [facility] [address] [address] [address] Millie Flores MCV (RBC) [Entitic vol] 95.3 fL Normal 81.0-99.0 [facility] Comment on above: Performed By: #### C BC #### [facility] [address] [address] [address] Millie Flores MONO # 1.5 103/ul Critically high 0.3-0.8 [facility] Comment on above: Performed By: #### C BC #### [facility] [address] [place] [address] Dr. Millie Flores Monocytes/100 WBC (Bld) 11.1 % Normal 1.7-12.0 [facility] Comment on above: Performed By: #### C BC #### [facility] [address] [address] [address] Millie Flores NEUT # 8.8 103/ul Critically high 1.4-6.5 [facility] Comment on above: Performed By: #### C BC #### [facility] [address] [place] [address] Dr. Millie Flores Neutrophils/100 WBC (Bld) 67.0 % Normal 43.0-75.0 [facility] Comment on above: Performed By: #### C BC #### [facility] [address] [address] [address] Millie Flores Platelet mean volume (Bld) [Entitic vol] 10.3 fL Normal 9.5-13.5 [facility] Comment on above: Performed By: #### C BC #### [facility] [address] [place] [address] Dr. Millie Flores PLT 215 103/ul Normal 150-450 [facility] Comment on above: Performed By: #### C BC #### [facility] [address] [place] [address] Dr. Millie Flores RBC 4.29 106/ul Normal 4.20-5.40 [facility] Comment on above: Performed By: #### C BC #### [facility] [address] [place] [address] Dr. Millie Flores WBC 13.1 103/ul Critically high 4.0-11.0 [facility] Comment on above: Performed By: #### C BC #### [facility] [address] [place] [address] Dr. Millie Flores ER URINE PROFILEon 1 Bilirubin Ql (U) Negative Normal NEGATIVE [facility] Comment on above: Performed By: #### C BC #### [facility] [address] [place] [address] Dr. Millie Flores Clarity (U) CLEAR Normal CLEAR [facility] Comment on above: Performed By: #### C BC #### [facility] [address] [place] [address] Dr. Millie Flores Color (U) LT. YELLOW Normal YELLOW [facility] Comment on above: Performed By: #### C BC #### [facility] [address] [place] [address] Dr. Millie MOELLER A micrscopic examination will be performed if indicated. Normal [facility] Comment on above: Performed By: #### C BC #### [facility] [address] [place] [address] Dr. Millie Flores Glucose Ql (U) Negative Normal NEGATIVE [facility] Comment on above: Performed By: #### C BC #### [facility] [address] [place] [address] Dr. Millie Flores Hemoglobin Ql (U) Negative Normal NEGATIVE [facility] Comment on above: Performed By: #### C BC #### [facility] [address] [place] [address] Dr. Millie Flores Ketones Ql (U) TRACE Abnormal NEGATIVE [facility] Comment on above: Performed By: #### C BC #### [facility] [address] [place] [address] Dr. Millie Flores LEUKOCYTES MODERATE Abnormal NEGATIVE [facility] Comment on above: Performed By: #### C BC #### [facility] [address] [place] [address] Dr. Millie Flores Nitrite Ql (U) Positive Abnormal NEGATIVE [facility] Comment on above: Performed By: #### C BC #### [facility] [address] [place] [address] Dr. Millie Flores pH (U) 7.5 [pH] Normal 5-9 [facility] Comment on above: Performed By: #### C BC #### [facility] [address] [place] [address] Dr. Millie Flores SPEC GRAVITY 1.015 Normal 1.005-<=1.[address] [facility] Comment on above: Performed By: #### C BC #### [facility] [address] [place] [address] Dr. Millie Flores UA PROTEIN Negative Normal NEGATIVE/ TRACE [facility] Comment on above: Performed By: #### C BC #### [facility] [address] [place] [address] Dr. Millie Flores UR MICRO IND INDICATED Normal [facility] Comment on above: Performed By: #### C BC #### [facility] [address] [place] [address] Dr. Millie Flores Urobilinogen Qn (U) 1.0 {Robert'U}/dL Normal 0.2 - 1. 0 [facility] Comment on above: Performed By: #### C BC #### [facility] [address] [place] [address] Dr. Millie Flores PROF CHEM 8 (BAS METB)on Anion gap [Moles/Vol] 14.8 mmol/L Normal [facility] Comment on above: Performed By: #### B MP #### [facility] [address] [place] [address] Dr. Millie Flores Calcium [Mass/Vol] 9.2 mg/dL Normal 8.4-10.2 [facility] Comment on above: Performed By: #### B MP #### [facility] [address] [address] [address] Millie Flores Chloride [Moles/Vol] 103 mmol/L Normal 98-107 [facility] Comment on above: Performed By: #### B MP #### [facility] [address] [address] [address] Millie Flores CO2 [Moles/Vol] 24.0 mmol/L Normal 22.0-30.0 [facility] Comment on above: Performed By: #### B MP #### [facility] [address] [address] [address] Millie Flores Creatinine [Mass/Vol] 1.09 mg/dL Critically high 0.52-1.04 [facility] Comment on above: Performed By: #### B MP #### [facility] [address] [address] [address] Millie lFores EGFR-AF COLOMBIAN 60 mL/min/1.73m2 Normal >=60 [facility] Comment on above: Performed By: #### B MP #### [facility] [address] [address] [address] Millie Flores EGFR-NON AF COLOMBIAN 49 mL/min/1.73m2 Critically low >=60 [facility] Comment on above: Performed By: #### B MP #### [facility] [address] [address] [address] Millie Flores Glucose [Mass/Vol] 116 mg/dL Critically high 74-106 [facility] Comment on above: Performed By: #### B MP #### [facility] [address] [address] [address] Millie Flores Potassium [Moles/Vol] 3.8 mmol/L Normal 3.4-5.0 [facility] Comment on above: Performed By: #### B MP #### [facility] [address] [address] [address] Millie Flores Sodium [Moles/Vol] 138 mmol/L Normal 137-145 [facility] Comment on above: Performed By: #### B MP #### [facility] [address] [place] [address] Dr. Millie Flores Urea nitrogen [Mass/Vol] 22.0 mg/dL Critically high 7.0-17.0 [facility] Comment on above: Performed By: #### B MP #### [facility] [address] [place] [address] Dr. Millie Flores Urea nitrogen/Creatinine [Mass ratio] 20.2 mg/mg Normal [facility] Comment on above: Performed By: #### B MP #### [facility] [address] [place] [address] Dr. Millie Flores URINE MICROSCOPIC ONLYon BACTERIA LARGE Abnormal NONE SEEN [facility] Comment on above: Performed By: #### C BC #### [facility] [address] [place] [address] Dr. Millie Flores Bacteria identified Cx Nom (U) INDICATED Normal [facility] Comment on above: Performed By: #### C BC #### [facility] [address] [place] [address] Dr. Millie Flores CAST NONE SEEN Normal NONE SEEN [facility] Comment on above: Performed By: #### C BC #### [facility] [address] [place] [address] Dr. Millie Flores Crystals LM Nom (Urine sed) NONE SEEN Normal NONE SEEN [facility] Comment on above: Performed By: #### C BC #### [facility] [address] [place] [address] Dr. Millie Flores Epithelial cells LM Ql (Urine sed) RARE Normal NONE SEEN /RARE [facility] Comment on above: Performed By: #### C BC #### [facility] [address] [place] [address] Dr. Millie Flores MUCOUS NONE SEEN Normal NONE SEEN [facility] Comment on above: Performed By: #### C BC #### [facility] [address] [place] [address] Dr. Millie Flores RBC NONE SEEN Abnormal 0-2 [facility] Comment on above: Performed By: #### C BC #### [facility] [address] [place], [place] [address] Dr. Millie Flores WBC 10-20 Abnormal NONE SEEN [facility] Comment on above: Performed By: #### C BC #### [facility] [id number] Millie Flores XR ABD FLAT_UPon 07-19-2021 [...] HANG MACIAS Date: 2021-07-19 00:50 Normal [facility] XR pre/post mri xrayon 05-08 XR pre/post mri xray [facility] [place] [address] [place] [address] MRI Report Signed Patient: Areli Hawkins MR#: [id number] : 1945 Acct:[id number] Age/Sex: 75 / F ADM Date: 05/08/21 Loc: [facility] Room: Type: [facility] Attending Dr: Nohelia Kline PA-C Ordering Provider: Nohelia GREWAL Date of Service: 05/08/21 MR/MR lumbar spine wo con: R20.2 ([id number]) XR/XR pre/post mri xray: R20.2 Copies to: Nohelia Kline [facility] MR lumbar spine wo con, XR [...] Emery Shine M.D.05/08/2021 2:52 PM Dictation Location: RADIO--04 Transcribed By: [facility] 05/08/21 1452 Dictated By: Emery Shine II, MD 05/08/21 1402 Signed By: 05/08/21 1452 Normal [facility] XR pre/post mri xrayon 02-03 XR pre/post mri xray [facility] [place] [address] MRI Report Signed Patient: Areli Hawkins MR#: [id number] : 1945 Acct:[id number] Age/Sex: 75 / F ADM Date: 02/03/21 Loc: [facility] Room: Type: [facility] CLI Attending Dr: Moises Miguel MD Ordering Provider: Moises Miguel MD Date of Service: 02/03/21 MR/MR cervical spine wo con: R20.2 PARESTHESIA R29.9 HYPER REFLEXIA M17.12 CERVICAL SPNDY ([id number]) XR/XR pre/post mri xray: C SPINE Copies [...] Allan Salinas M.D.02/03/2021 5:00 PM Dictation Location: [place] [address] Transcribed By: JORGE 02/03/211699 Dictated By: Allan Salinas DO 02/03/211649 Signed By: 02/03/211699 [facility] Gastroenterology Office/Clin ic Noteon 09-20-2020 Gastroenterology [...] Primary malignant neoplasm of prostate: Father. Normal [facility] Comment on above: Result Comment: Elec tronically Signed By: TEODORO BAÑUELOS, Cristal\.br\Date and Time Signed: 09/20/20 14:17 EST Coding Summary.on 09-06-2020 Coding Summary. CODING DATE: 020 FINAL [facility] STATUS: Home (Routine DC) PAYOR: Medicare [...] Burris Date Saved: 09/06/2020 08:17 am Normal [facility] Priority Order-Blair 2019 Priority Order-STAT Comment Invalid Interpretation Code [facility] Comment on above: Result Comment: Rece ived Performed at: [facility] [address] [place], [place] [id number] MD Hilda Palmer Performed By: #### S ARS-CoV-2, CHETAN, [id number] ####[facility] [address] [place] [address] SARS-CoV-2, NAAon 09-02-2020 SARS-CoV-2 (COVID-19) RNA CHETAN+probe Ql (Resp) Not detected Invalid Interpretation Code Not Detected [facility] Comment on above: Result Comment: This nucleic acid amplification test was developed and its performance characteristics determined by [facility]. Nucleic acid amplification tests include PCR and [...] detected) result in this assay. Performed at: [facility] [address] [facility] [place] [id number] MD Hilda Palmer Performed By: #### S ARS-CoV-2, CHETAN, [id number] #### [facility] [address] [place] [address] Consent for Procedure/Surger yon 08-26-2020 Consent for Procedure/Surgery [id number] D:127 Normal [facility] Physician Orderon 08-26-2020 Physician Order [id number] CD:127 Normal [facility] Ambulatory Clinical Summaryo n 08-25-2020 Ambulatory Clinical Summary {[id number]}CD:[id number] Normal [facility] Patient Educationon 08-25-20 20 Patient Education [...] ? Medicines taken, including vitamins, herbs, eyedrops, [id number]-vzcuiut medicines, and creams. ? Use of steroids [...] medicines have worn off. ? Only take fnlj-olf-dcrytqr or prescription medicines for pain, discomfort, or [...] 09/06/2001 Document Revised: 12/01/2012 Document Reviewed: 04/21/2009 [facility]? Patient Information ?2013 [employer]. Heartburn Heartburn is a painful, burning sensation [...] caregiver may tell you to use certain cqok-swx-qfohgix medicines (antacids, acid reducers) for mild heartburn. [...] not impro (more content not included)... Normal [facility] Physician Orderon 08-25-2020 Physician Order [id number] D:127 [facility] Physician Referralon 020 Physician Referral [id number] D:127 [facility] Vital Signs Date Time Vital Sign Value Performing Clinician Madi sun 10-23-2023 11:00-0500 Body height 162.56 cm [employer] Other [facility] Other 10-23-2023 11:00-0500 Body mass index (BMI) [Ratio] 42.84 kg/m2 [employer] Other [facility] Other 10-23-2023 11:00-0500 Body weight 113.22 kg [employer] Other [facility] Other 10-23-2023 11:00-0500 Diastolic blood pressure 67 mm[Hg] [employer] Other [facility] Other 10-23-2023 11:00-0500 Respiratory rate 16 /min [employer] Other [facility] Other 10-23-2023 11:00-0500 Systolic blood pressure 133 mm[Hg] Anurag Ball Other [facility] Other 08-27-2023 14:00-0500 Body height 162.56 cm Anurag Ball Other [facility] Other 08-27-2023 14:00-0500 Body mass index (BMI) [Ratio] 42.36 kg/m2 Anurag Ball Other [facility] Other 08-27-2023 14:00-0500 Body weight 111.95 kg Anurag Ball Other [facility] Other 08-27-2023 14:00-0500 Diastolic blood pressure 79 mm[Hg] Anurag Ball Other [facility] Other 08-27-2023 14:00-0500 Respiratory rate 20 /min Anurag Ball Other [facility] Other 08-27-2023 14:00-0500 Systolic blood pressure 142 mm[Hg] Anurag Ball Other [facility] Other 05-29-2023 10:30-0400 Body height 162.56 cm Anurag Ball Other [facility] Other 05-29-2023 10:30-0400 Body mass index (BMI) [Ratio] 41.23 kg/m2 Anurag Ball Other [facility] Other 05-29-2023 10:30-0400 Body weight 108.95 kg Anurag Ball Other [facility] Other 05-29-2023 10:30-0400 Diastolic blood pressure 76 mm[Hg] Anurag Ball Other [facility] Other 05-29-2023 10:30-0400 Respiratory rate 12 /min Anurag Ball Other [employer] Other 05-29-2023 10:30-0400 Systolic blood pressure 123 mm[Hg] Anurag Ball Other [employer] Other 05-03-2023 10:00-0400 Body height 162.56 cm Anurag Ball Other [employer] Other 05-03-2023 10:00-0400 Body mass index (BMI) [Ratio] 40.3 kg/m2 Anurag Ball Other [employer] Other 05-03-2023 10:00-0400 Body weight 106.51 kg Anurag Ball Other [employer] Other 05-03-2023 10:00-0400 Diastolic blood pressure 75 mm[Hg] Anurag Ball Other [employer] Other 05-03-2023 10:00-0400 Respiratory rate 12 /min Anurag Ball Other [employer] Other 05-03-2023 10:00-0400 Systolic blood pressure 120 mm[Hg] Anurag Ball Other [employer] Other 01-16-2022 11:55-0400 Body height 162.6 cm Marie Lea MD Work Phone: [facility] 01-16-2022 11:55-0400 Body weight 95.25 kg Marie Lea MD Work Phone: [facility] 01-16-2022 11:55-0400 Diastolic blood pressure 62 mm[Hg] Marie Lea MD Work Phone: [facility] 01-16-2022 11:55-0400 Heart rate 64 /min Marie Lea MD Work Phone: [facility] 01-16-2022 11:55-0400 Systolic blood pressure 150 mm[Hg] Marie Lea MD Work Phone: [facility] 10-05-2021 11:53-0500 Body height 162.56 cm Anurag E Ball Work Phone: [facility] [address] [place] Work Phone: 10-05-2021 11:53-0500 Body mass index (BMI) [Ratio] 34.67 kg/m2 Anurag E Ball Work Phone: [facility] [address] [place] Work Phone: 10-05-2021 11:53-0500 Body surface area Derived from formula 1.96 m2 Anurag E Ball Work Phone: [facility] [address] [place] Work Phone: 10-05-2021 11:53-0500 Body weight 91.63 kg Anurag E Ball Work Phone: [facility] [address] [place] Work Phone: 10-05-2021 11:53-0500 Diastolic blood pressure 80 mm[Hg] Anurag E Ball Work Phone: [facility] [address] [place] Work Phone: 10-05-2021 11:53-0500 Heart rate 69 /min Anurag E Ball Work Phone: [facility] [address] [place] Work Phone: 10-05-2021 11:53-0500 Systolic blood pressure 127 mm[Hg] Anurag E Ball Work Phone: [facility] [address] [place] Work Phone: 06-22-2021 11:00-0400 Body height 162.56 cm Carlos Gong Other [facility] Other 06-22-2021 11:00-0400 Body mass index (BMI) [Ratio] 35.18 kg/m2 Carlos Gong Other [facility] Other 06-22-2021 11:00-0400 Body weight 92.99 kg Carlos Gong Other [facility] Other 06-22-2021 11:00-0400 Diastolic blood pressure 84 mm[Hg] Carlos Gong Other [facility] Other 06-22-2021 11:00-0400 Respiratory rate 18 /min Carlos Gong Other [facility] Other 06-22-2021 11:00-0400 Systolic blood pressure 138 mm[Hg] Carlos Gong Other [facility] Other Encounters Encounter Date Encounter Type Care Provider Facility Start: 11-04-2023 End: 11-05-2023 [facility]ulatory [facility] Start: 10-23-2023 End: 10-23-2023 ambulatory Anurag Bolton Other [facility] Other Start: 10-23-2023 Patient encounter procedure Anurag CELEST[facility] Start: 10-14-2023 End: 10-15-2023 ambulatory Bryant Richardson MD Facility: [facility] Start: 10-07-2023 End: 2023 ambulatory Bryant Richardson MD Facility: [facility] Start: 10-01-2023 End: 10-01-2023 ambulatory Anurag Bolton Other [facility] Other Start: 10-01-2023 Telephone encounter Anurag Mendez [facility] Start: 09-10-2023 End: 09-10-2023 ambulatory Anurag Ball Other [facility] Other Start: 09-10-2023 Telephone encounter Anurag Bolton [facility] Start: 08-28-2023 End: 08-28-2023 ambulatory Anurag Ball Other [facility] Other Start: 08-28-2023 Telephone encounter Anurag Ball [facility] Start: 08-27-2023 End: 08-27-2023 ambulatory Anurag Ball Other [facility] Other Start: 08-27-2023 Office outpatient visit 15 minutes Anurag Ball [facility] Start: 08-06-2023 End: 08-06-2023 ambulatory Anurag Ball Other [facility] Other Start: 08-06-2023 Nursing evaluation o f patient and report Anurag Ball [facility] Start: 06-10-2023 End: 06-10-2023 ambulatory Anurag Ball Other [facility] Other Start: 06-10-2023 Telephone encounter Anurag Ball [facility] Start: 05-29-2023 End: 05-29-2023 ambulatory Anurag Ball Other [facility] Other Start: 05-29-2023 Office outpatient visit 15 minutes Anurag Ball [facility] Start: 05-06-2023 End: 05-06-2023 ambulatory Anurag Ball Other [facility] Other Start: 05-06-2023 Telephone encounter Anurag Ball [facility] Start: 05-03-2023 End: 05-03-2023 ambulatory Anurag Ball Other [facility] Other Start: 05-03-2023 Office outpatient visit 25 minutes Anurag Ball [facility] Start: 04-25-2023 End: 04-25-2023 ambulatory Anurag Ball Other [facility] Other Start: 04-25-2023 Telephone encounter Anurag Bolton [facility] Start: 02-01-2022 Telephone encounter Sabas Lea MD Work Phone: Neurology Comment on above: Results Start: 01-16-2022 End: 01-16-2022 Patient encounter procedure Marie Lea MD Work Phone: Neurology Comment on above: 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); Abnormal finding of blood chemistry, unspecified Start: 12-28-2021 End: 12-28-2021 ambulatory Carlos Gong Other [facility] Other Start: 12-28-2021 Office outpatient visit 15 minutes Carlos Gong [facility] Start: 12-23-2021 End: 12-23-2021 Adult health examination Anurag Bolton Other [facility] Other Start: 10-05-2021 Office outpatient visit 25 minutes Anurag Bolton Work Phone: [facility] [address] [place] Work Phone: Start: 09-07-2021 End: 09-08-[address] ROSI GONG Facility:[facility] Start: 08-30-2021 End: 08-30-[address] ROSI GONG Facility:[facility] Start: 07-29-2021 End: 07-31-2021 Evaluation and management of inpatient DR YARITZA COOK Facility:[facility] Start: 07-19-2021 End: 07-19-[address] ROSI GONG Facility:[facility] Start: 06-22-2021 Office outpatient ne w 45 minutes Carlos Gong [facility] Start: 09-22-2020 End: 09-23-2020 [...] Author Start: 01-16-2025 DIABETES SCREEN DIABETES SCREEN [facility] Start: 01-11-2023 Adult depression screening assessment DEPRESSION SCREENING [facility] Start: 01-16-2022 End: 03-18-2022 CRYOGLOBULIN, QUAL, REFLEX TO CASSI AND IGG,A,M [facility] Work Phone: Comment on above: Expected: 01/16/2022 , Expires: 03/18/2022 Start: 09-23-2021 ADVANCE DIRECTIVE DISCUSSION ADVANCE DIRECTIVE DISCUSSION [facility] Start: 2012 BONE DENSITY BONE DENSITY [facility] Start: 2012 PNEUMOVAX AGE 65 AND OVER WITH 5YR LOOKBACK (#1) PNEUMOVAX AGE 65 AND OVER WITH 5YR LOOKBACK (#1) [facility] Start: 1997 SHINGRIX VACCINE (1 of 2) SHINGRIX VACCINE (1 of 2) [facility] Start: 1992 COLOGUARD (FIT-DNA) COLOGUARD (FIT-D NA) [facility] Start: 1992 Colonoscopy COLONOSCOPY [facility] Start: 1992 COLORECTAL CANCER SCREENING COLORECTAL CANCER SCREENING [facility] Start: [address] COLONOGRAPHY [facility] Start: 1992 FECAL OCCULT BLOOD FECAL OCCULT BLOO D [facility] Start: 1992 LIPID SCREEN LIPID SCREEN [facility] Start: 1992 SIGMOIDOSCOPY SIGMOIDOSCOPY [facility] Start: 1987 Mammography MAMMOGRAM [facility] Start: 1966 Urine microalbumin profile DTAP,TDAP,TD (1 - Tdap) [facility] Start: 1965 HEPATITIS C SCREENING HEPATITIS C SC [facility] Immunizations Immunization Date Immunization Notes Care Provider Dwight recinos 08-06-2023 influenza, high dose seasonal, preservative-free Anurag Oj Other [facility] Other 08-07-2022 COVID-19 Pfizer (Pediatric) Anurag Oj Other [facility] Other 08-07-2022 influenza virus vaccine, split virus (incl. purified surface antigen) Anurag Oj Other [facility] Other 01-30-2022 COVID-19 Vaccine Pfi zer - Documentation Purposes Only Anurag Oj Other [facility] Other 08-08-2021 Fluzone High-Dose Quadrivalent 0.7 ML Intramuscular Suspension Prefilled Syringe Anurag Norberto Bolton Work Phone: [facility] [place] Work Phone: 06-27-2021 Moderna COVID-19 Vaccine 100 MCG/0.5ML Intramuscular Suspension Anurag Norberto jO Work Phone: [facility] [address] [place] Work Phone: 06-20-2021 Pfizer-BioNTech COVID-19 Vacc 30 MCG/0.3ML Intramuscular Suspension Anurag Norberto Oj Work Phone: [facility] [address] [place] Work Phone: 11-17-2020 Pfizer-BioNTech COVID-19 Vacc 30 MCG/0.3ML Intramuscular Suspension Anurag Norberto Oj Work Phone: [facility] [address] [place] Work Phone: 10-27-2020 Pfizer-BioNTech COVID-19 Vacc 30 MCG/0.3ML Intramuscular Suspension Anurag Bolton Work Phone: [facility] [address] [place] Work Phone: 06-28-2020 Fluad Quadrivalent 0 .5 ML Intramuscular Prefilled Syringe [facility]ag Bolton [facility] [address] [place] Work Phone: 07-07-2019 influenza, high dose seasonal, preservative-free [facility] [place] Work Phone: 07-15-2018 influenza, high dose seasonal, preservative-free [facility]urag Bolton [facility] [place] Work Phone: 07-23-2017 influenza, high dose seasonal, preservative-free [facility] [address] [place] Work Phone: 02-05-2017 pneumococcal conjuga te vaccine, 13 valent [facility] [address] [place] [address] Work Phone: 02-05-2017 pneumococcal Conjuga te, unspecified formulation; Translations: [Need for prophylactic vaccination against Streptococcus pneumoniae (pneumococcus)] Anurag Bolton Other [facility] [employer] Other 07-05-2016 influenza virus vaccine, split virus (incl. purified surface antigen) Anurag Bolton Other [facility] [employer] Other 07-05-2016 influenza, high dose seasonal, preservative-free Anurag Bolton Work [facility] [address] Work Phone: 09-23-2015 pneumococcal polysaccharide vaccine, 23 valent Anurag Bolton Work Phone: [facility] [address] [place] Work Phone: 08-30-2015 influenza, seasonal, injectable, preservative free [facility]urag Bolton [facility] [place] Work Phone: 07-05-2014 influenza, high dose seasonal, preservative-free [facility]urag Bolton [facility] [address] [place] Work Phone: 02-02-2013 pneumococcal polysaccharide vaccine, 23 valent [facility]ag [facility] Work Phone: Payers Date Payer Category Payer Medicare 2023 Unknown 2020 Unknown MMO MMO MEDICARE SUPPLEMENT [id number] 2020-Present [phone] [address] [place] [address] Indemnity [id number] 2012 Medicare MEDICARE MEDICAR E A AND B [id number] 2012-Present [phone] [address] [address] [place] [address] Medicare [id number] 1959 Medicare [id number] 1959 Unknown [id number] 1947 Unknown [id number] 1947 Unknown [id number] 1947 Unknown [id number] 1947 Unknown [id number] 1947 Unknown [id number] 1947 Unknown [id number] 1947 Unknown [id number] 1947 Unknown [id number] Social History Date Type Detail Facility Daily caffeine consumption Daily caffeine consumption [facility] Other Comment on above: 3 diet pops daily.; Start: 01-16-2022 Tobacco smoking stat [facility] Never smoked tobacco [facility] Start: 01-16-2022 Tobacco use and exposure Smokeless tobacco non-user [facility] Start: 01-16-2022 Alcohol intake Ex-drinker (finding) [facility] Start: 1945 Sex Assigned At Female [facility] Start: 12-31-2021 End: 01-10-2022 Exposure to SARS-CoV-2 (event) Not sure [facility] Sex Assigned At Sex Assigned At Bir th [facility] Other Clinical Notes 06-22-2021 to 10-23-2023 Note [...] Suggest to check labs: CBC, TSH, A1C [facility] Other 01-09-2024 Evaluation note* Encounter Date Diagnosis Assessment Notes Treatment Notes Treatment Clinical Notes Sep, Primary hypertension (ICD-10 - I10) [facility] Other 12-05-2023 Evaluation note* Encounter Date Diagnosis [...] index [BMI] 40.0-44.9, adult (ICD-10 - Z68.41) [facility] Other 12-05-2023 Evaluation note* Encounter Date Diagnosis [...] [BMI ] 40.0-44.9, adult (ICD-10 - Z68.41) [facility] Other 09-06-2023 Evaluation note* Encounter Date Diagnosis [...] as needed. Continue OTC treatment for now. [facility] Other 08-11-2023 Evaluation note* Encounter Date Diagnosis [...] (ICD-10 - R79.89) r/o DVT w/ venous [employer] Other 05-12-2022 Miscellaneous Notes* Telephone Encounter - [...] relief. Marie Lea MD documented [facility] Instructions* Patient Instructions* Marie Lea MD - [...] it on your ownagain. documented in this encounterOur [facility] NoteHNO ID: [id number] Author: Samantha Lopez MD Service: ? Author Type: Physician Type: Progress Notes Filed: 01/22/2022 3:56 PM Note Text: [facility] New Patient Evaluation Consulting Provider: Anurag Bolton ([facility] [place]) [address] [address] Consultation requested by the above doctor for [...] a workup by a local neurologist in [facility], which performed MR of the lumbar [...] for reported prolon (more content not included)... [facility]04-26-2022 History of Present illness Narrative* Samantha Lopez MD - 01/16/2022 1:00 PM EDT Images from the original note were not included. [facility] New Patient Evaluation Consulting Provider: Anurag Bolton ([place]) [address] [address] Consultation requested by the above doctor for [...] a workup by a local neurologist in [facility], which performed MR of the lumbar [...] raising-bilaterally negative COORDINATION/GAIT: Normal finger-to- nose-finger and jjac-lp-dcej bilaterally. Intact rapid alternating movements bilaterally. Gait [...] will be communicated to the patient via telephone/[employer]. Patient to call office if not contacted after expected testing turnaround time. To aid with communication, patients (and primary care physicians) can sign up for [employer] (or [employer]), which allows online appointment scheduling, transmission of labs results and chart notes, andsecure email communication. To establish either account, visit [email or web address]. Marie Lea MD Neuromuscular Medicine (NM) Fellow In the service of Dr. Samantha Lopez (NM Staff) [facility] STAFF PHYSICIAN NOTE OF PERSONAL INVOLVEMENT IN CARE I have reviewed the history and physical examination obtained and documented by the fellow and I personally participated in the crenshwa components. I have discussed the case and management of the patient's care with the patient. My impression and plans are as noted above. 60 minutes, total visit with greater than 50% counseling and coordination of care. Patient had questions regarding disease progression and plan of care, all of which were addressed. Samantha Lopez MD cc: Referring provider: Anurag Bolton ([facility] [place]) [address] [place] [address] [address] [phone] [address] [address] documented in this encounterOur [facility] Evaluation note* Encounter Date Diagnosis Assessment Notes [...] re-evaluation. Dec, Sensory neuropathy (ICD-10 - G62.9) [facility] Other 11-06-2021 NoteCONSULTATION Consultation Date: 07/30/2021 REASON [...] repeat urine cu (more content not included)...[id number] * Encounter Date Diagnosis Assessment [...] May, Post menopausal syndrome (ICD-10 - N95.1) [facility] Other evaluation note* Diagnosis Hereditary and idiopathic peripheral neuropathy- Primary Unspecified hereditary and idiopathic peripheral neuropathy Abnormal finding of blood chemistry, unspecified documented in [facility] [place]* Diagnosis Abnormality of gait- Primary documented in this encounter [facility]No [facility] [employer] Other [facility] general Narrative - Reported* Type Description Date Medical History Uterine Cancer Medical History Hypertension Medical History Obesity Medical History Depression Medical History Anxiety Medical History cholecystecomy Surgical History cholecystectomy Surgical History total hysterectomy Hospitalization History SEE ABOVE [facility] Other Hisxpzr general Narrative - Reported* Type Description Date Medical History Uterine Cancer Medical History Hypertension Medical History Obesity Medical History Depression Medical History Anxiety Medical History cholecystecomy Surgical History cholecystectomy Surgical History total hysterectomy Surgical History bowel surgery Hospitalization History SEE ABOVE [facility] Other Hiseqpm general Narrative - Reported* Type Description Date Medical History Uterine Cancer Medical History Hypertension Medical History Obesity Medical History Depression Medical History Anxiety Medical History cholecystecomy Surgical History Problem Title : CHOL ECYSTECTOMY (60888), Problem Status : Active, Surgical History Problem Title : EXPL ORATORY LAPAROTOMY WITH LYSIS OF ADHESIONS (04002), Problem Status : Active, Surgical History Problem Title : past surgical history reviewed, Problem Description : past surgical history reviewed, Problem Comment : reviewed - no changes required, Problem Status : Resolved, Surgical History Problem Title : surg ical procedures, hx of, Problem Description : surgical procedures, hx of, Problem Comment : Coty 1996 Total Hyst 2009 - Uterine cancer - Phibbs (sees [employer] now), Problem Status : Resolved, Surgical History Problem Title : AMANDA AND BSO (TOTAL ABDOMINAL HYSTERECTOMY AND BILATERAL SALPINGO-OOPHORECTOMY) (86774), Problem Status : Active, Hospitalization History SEE ABOVE [facility] Other Reason for referral (narrative)* Reason Referral for left si ded low back pain and left hip pain Diagnosis 1 Acute left-sided low back pain without sciatica (M54.50) Diagnosis 2 Primary osteoarthrit is of left hip (M16.12) Referral Organization [facility] Ike roni Referring Provider First Name Anurag Referring Provider Last Name Oj Referring Provider Specialty Internal Me dicine Referred Organization [facility] Referred Address [address], [place],[address] Referred Provider Specialty Pain Medicin e Referral [...] XR of lumbar spine and left hip [facility] Other Summary Purpose Family History No Family [...] for follow-up of a hospitalization for D/C [facility] 08/09/2021. * Patient is in the office for the first time after being seen in consultation at [facility] last month for an episode of [...] section and content) DATE CREATED AUTHOR 08/02/2021 [employer] [facility] DATE CREATED AUTHOR AUTHOR'S ORGANIZ ATION 09/13/2021 [facility] DATE CREATED AUTHOR AUTHOR'S ORGANIZ ATION 10/06/2021 [facility] DATE CREATED AUTHOR AUTHOR'S ORGANIZ ATION 11/10/2021 [facility] DATE CREATED AUTHOR AUTHOR'S ORGANIZ ATION 02/03/2022 [facility] DATE CREATED AUTHOR AUTHOR'S ORGANIZ ATION 11/10/2023 [facility] Comments (unrecognize d section and content) In the event this informatio n is protected by the Federal Confidentiality of Alcohol and Drug Abuse Patient Records regulations: The Federal rules restrict any use of the information to criminally investigate or prosecute any alcohol or drug abuse patient.[facility] the event this information is protected by the Federal Confidentiality of Alcohol and Drug Abuse Patient Records regulations: The Federal rules restrict any use of the information to criminally investigate or prosecute any alcohol or drug abuse patient.[facility] Reason for Visit (unrecogniz ed section and content) Reason Comments New Patient Reason Comments Results Care Teams (unrecognized sec tion and content) [employer] Relationship Specialty Start Date End Date Anurag Bolton Norberto, DO [address] [place] [id number] Physician Internal Medicine 01/10/22 [employer] Relationship Specialty Start Date End Date OjAnurag Norberto, DO [address] [place] [address] Physician Internal Medicine 01/10/22 FOR [...] BE BASED ON THE PRIMARY CLINICAL RECORDS. [facility] [employer] [facility]. provides no warranty or guarantee of the accuracy or completeness of information in this document.
[2023-11-14 11:48] LABS: Anion Gap 15.4; BUN Creatinine Ratio 35.1; Carbon Dioxide 26.4 mmol/L (21.0-32.0); Chloride 105 mmol/L (98-107); Estimated GFR (African America >60 (>=60); Estimated GFR (Non-African Ame >60 (>=60); Glucose 97 mg/dL (74-106); Potassium 3.8 mmol/L (3.5-5.1); Sodium 143 mmol/L (136-145)
[2023-11-14 12:03] LABS: Thyroid Stimulating Hormone 1.321 uIU/mL (0.358-3.740)
[2023-11-14 13:13] LABS: Percent Iron Saturation 18.6 %
[2023-11-14 14:43] LABS: Estimated Average Glucose 114 mg/dL; Glycohemoglobin A1C 5.6 % (4.5-6.2)
== END 2023-11-14 10:58 | disposition home or self-care (01) ==
LOC: LAB 10:58
PROVIDERS: PCP Internal Medicine; Visit Provider Internal Medicine
DX: D64.9 Anemia, unspecified (principal); R53.83 Other fatigue; I10 Essential (primary) hypertension; R73.01 Impaired fasting glucose
CPT/HCPCS: 36415; 80048; 80053; 82607; 82728; 82746; 83036; 83540; 83550; 84443

== ENCOUNTER 2023-11-14 11:18 | Outpatient (OUT) | payer MEDICARE, OTHER, SELFPAY ==
--- OUTSIDE RECORDS SUMMARY | 2023-11-14 11:22 | XMS_ITS | CCD ---
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 Name Role Phone BELTRAN, DR ROSI Thornton [...] physicia Propensity to adverse reactions 8 Comment:Done adjust Other (1 source) Allergies Reconciled Propensity to adverse reactions Unknown adjust Other Medications Current Medications Medication Drug Class(es) [...] Oral daily for 30 *Pick strength-form from [employer] for eRX* Feb, Active Start: 12-08-2021 take [...] times daily for 30 *Pick strength-form from [employer] for eRX* Dec, Active Completed/Discontinued Medications Medication [...] 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 02-01-2022 [facility] Telephone (NENMMN) ARELI HAWKINS ([id number]) 1945 F Date Time Provider Department 02/01/22 [...] Status:Closed by MARIE LEA on 02/01/22 Normal [facility] IMMUNOFIXATION SCREEN, SERUM on 01-19-2022 MPA Result No M protein is identified. No M protein is identified. [facility] Staff Review (MPA) Reviewed by Lilian Pizarro M.D., Ph.D [facility] METHYLMALONIC ACIDon 022 Methylmalonate [Moles/Vol] 216 nmol/L 79 - 376 nmol/L [facility] RONNIE BY IFA WITH REFLEXon Nuclear Ab IF (S) [Titer] Negative Negative [facility] COPPER BLOODon 01-17-2022 Copper [Mass/Vol] 94 ug/dL 80 - 155 ug/dL [facility] HGB A1Con 01-17-2022 Average glucose Estimated from glycated hemoglobin (Bld) [Mass/Vol] 100 mg/dL [facility] HbA1c (Bld) [Mass fraction] 5.1 % 4.3 - 5.6 % [facility] RONNIE BY IFA WITH REFLEXon Nuclear Ab IF (S) [Titer] Negative Normal Negative [facility] Comment on above: Order Comment: Speci men Type: BLOOD SPECIMEN Ordering Facility: [facility] Address: [address] [place] [address] Result Comment: Anti -nuclear antibody test is used as an aid in diagnosis of systemic autoimmune diseases. Where positive and clinically warranted, follow-up using disease-specific testing is recommended. Low positive titers are not uncommon with advanced age, certain chronic infections, and malignancies among others. Test methodology: Indirect fluorescence immunoassay (IFA) using HEp-2 cells. Performed By: #### A CONNIE, IFESC #### [facility] CLIA [id number] [address] [place] [address] [place] C-REACTIVE PROTEIN (CRP)on 0 01-16-2022 CRP [Mass/Vol] mg/L <0.9 mg/dL [facility] CNOVon 01-16-2022 CNOV Office Visit (STEVENMMN ) ARELI HAWKINS ([id number]) 1945 F Date Time Provider Department 01/16/22 1:00 PM MARIE LEA During your visit today, we recorded the following information about you: Pulse Blood pressure Weight Height 64/minute 150/62 95.3 kg 1.626 m Samantha Lopez MD 01/22/2022 3:56 PM Signed [facility] New Patient Evaluation Consulting Provider: Anurag Wahl) [address] [facility] [address] Consultation requested by the above doctor for [...] a workup by a local neurologist in [facility], which performed MR of the lumbar [...] 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 ancestry. No* known history of [...] of incon (more content not included)... Normal [facility] COPPER BLOODon 01-16-2022 Copper [Mass/Vol] 94 ug/dL Normal 80-155 [facility] Comment on above: Order Comment: Speci men Type: BLOOD SPECIMEN Ordering Facility: [facility] Address: [address] [place] [phone] Result Comment: This test was developed and its performance characteristics determined by [facility]'s [facility] [place] (RT-PLMI). It has not been cleared or approved by the FDA. RT-PLWA is regulated under CLIA as qualified to perform high-complexity testing. This test is used for clinical purposes. It should not be regarded as investigational or for research. Performed By: #### A LUIS F ROSALES #### [facility] CLIA [id number] [address] [place] [address] [place] CRP SerPl-mCncon 01-16-2022 CRP [Mass/Vol] mg/L Normal <0.9 [facility] Comment on above: Order Comment: Speci men Type: BLOOD SPECIMEN Ordering Facility: [facility] Address: [address] [place] [address] Performed By: #### 3 016-3, B12, 1987- #### [facility] CLIA [id number] [address] [place] [address] [place] CRYOGLOBULIN, QUAL, REFLEX T O CASSI AND IGG,A,Mon 01-16-2022 CRYOGLOBULIN, QUALITATIVE NEG 72Hour Normal -72Hour [facility] Comment on above: Order Comment: Specotmmy castorena Type: BLOOD SPECIMEN Ordering Facility: [facility] Address: [address] [place] [address] Result Comment: This test was developed and its performance characteristics determined by [facility]. It has not been cleared or approved by the US Food and Drug Administration. This test was performed in a CLIA certified laboratory and is intended for clinical purposes. Performed By: [facility] [address] [place] [address] Commercial Insurance Underwriter: Hilary Mariano MD Performed By: #### A LUIS F ROSALES #### [facility] CLIA [id number] [address] [place] [address] [place] ESR Westergren method (Bld) [Velocity]on 01-16-2022 ESR (Bld) [Velocity] 8 mm/h 0 - 20 mm/hr [facility] ESR (Bld) [Velocity] 8 mm/h Normal 0-20 [facility] Comment on above: Order Comment: Martha castorena Type: BLOOD SPECIMEN Ordering Facility: [facility] Address: [address] [place] [address] Performed By: #### 4 537-7 #### [facility] CLIA [id number] [address] [place] [address] OF [place] HGB A1Con 01-16-2022 Average glucose Estimated from glycated hemoglobin (Bld) [Mass/Vol] 100 mg/dL Normal [facility] Comment on above: Order Comment: Martha castorena Type: BLOOD SPECIMEN Ordering Facility: [facility] Address: [address] [place] [address] Result Comment: eAG: (Estimated average glucose) is a calculated value from HgbA1c and is claim service representative of the average blood glucose level in the last 2-3 month period. Performed By: #### H BA1C #### [facility] CLIA [id number] [address] [place] [address] STATES [facility] HbA1c (Bld) [Mass fraction] 5.1 % Normal 4.3-5.6 [facility] Comment on above: Order Comment: Martha castorena Type: BLOOD SPECIMEN Ordering Facility: [facility] Address: [address] [place] [address] Result Comment: Amer [place] Diabetes Association guidelines indicate that patients with HgbA1c in the range 5.7-6.4% are at increased risk for development of diabetes, and intervention by lifestyle modification may be beneficial. HgbA1c greater or equal to 6.5% is considered diagnostic of diabetes. Performed By: #### H BA1C #### [facility] CLIA [id number] [address] [place] [address] OF [place] IMMUNOFIXATION SCREEN, SERUM on 01-16-2022 MPA RESULT No M protein is identified. Normal No M protein is identified. [facility] Comment on above: Order Comment: Martha castorena Type: BLOOD SPECIMEN Ordering Facility: [facility] Address: [address] [place] [address] Performed By: #### A CONNIE IFES #### [facility] [place] [id number] [address] [place] [address] OF [facility] STAFF REVIEW (MPA) Reviewed by Lilian Pizarro M.D., Ph.D Normal [facility] Comment on above: Order Comment: Speci men Type: BLOOD SPECIMEN Ordering Facility: [facility] Address: [address] [place] [address] Performed By: #### A CONNIE IFES #### [facility] [place] [id number] [address] [place] [address] [place] KAPPA/CASTILLO,FREE,SERon 2021 Immunoglobulin light chains.kappa.free (S) [Mass/Vol] 31.2 mg/L High 3.3 - 19.4 mg/L [facility] Immunoglobulin light chains.kappa/Immunog lobulin light chains.lambda (S) [Mass ratio] 1.46 0.26 - 1.65 [facility] Immunoglobulin light chains.lambda.free [Mass/Vol] 21.4 mg/L 5.7 - 26.3 mg/L [facility] Immunoglobulin light chains.kappa.free (S) [Mass/Vol] 31.2 mg/L High 3.3-19.4 [facility] Comment on above: Order Comment: Speci men Type: BLOOD SPECIMEN Ordering Facility: [facility] Address: [address] [place] [address] Performed By: #### K LFRS #### [facility] [place] [id number] [address] [place] [address] [place] Immunoglobulin light chains.kappa/Immunog lobulin light chains.lambda (S) [Mass ratio] 1.46 Normal 0.26-1.65 [facility] Comment on above: Order Comment: Speci men Type: BLOOD SPECIMEN Ordering Facility: [facility] Address: [address] [place] [address] Performed By: #### K LFRS #### [facility] CLIA [id number] [address] [place] [address] OF [facility] Immunoglobulin light chains.lambda.free [Mass/Vol] 21.4 mg/L Normal 5.7-26.3 [facility] Comment on above: Order Comment: Speci men Type: BLOOD SPECIMEN Ordering Facility: [facility] Address: [address] [place] [address] Performed By: #### K LFRS #### [facility] CLIA [id number] [address] [place] [address] [place] Methylmalonate SerPl-sCncon 01-16-2022 Methylmalonate [Moles/Vol] 216 nmol/L Normal 79-376 [facility] Comment on above: Order Comment: Speci men Type: BLOOD SPECIMEN Ordering Facility: [facility] Address: [address] [place] [address] Result Comment: This test was developed and its performance characteristics determined by [facility]'s [facility] [place] (RT-PLMI). It has not been cleared or approved by the FDA. RT-[facility] is regulated under CLIA as qualified to perform high-complexity testing. This test is used for clinical purposes. It should not be regarded as investigational or for research. Performed By: #### 1 [id number] #### [facility] [place] [id number] [address] [place] [address] [place] TSH BLDon 01-16-2022 TSH Qn 1.380 m[IU]/L 0.270 - 4.200 mIU/L [facility] TSH SerPl-aCncon 01-16-2022 TSH Qn 1.380 m[IU]/L Normal 0.270-4.200 [facility] Comment on above: Order Comment: Speci men Type: BLOOD SPECIMEN Ordering Facility: [facility] Address: [address] [place] [phone] Performed By: #### 3 016-3, B12, 1988-01 #### [facility] CLIA [id number] [facility] [place] [address] [place] VITAMIN B12 BLOODon 01-17-20 22 Cobalamin (Vitamin B12) [Mass/Vol] 1194 pg/mL 232-1,245 pg/mL [facility] Cobalamin (Vitamin B12) [Mass/Vol] 1194 pg/mL Normal 232-1,245 [facility] Comment on above: Order Comment: Speci men Type: BLOOD SPECIMEN Ordering Facility: [facility] Address: [address] [place], [place] [id number] Performed By: #### 3 016-3, B12, 1988-01 #### [facility] CLIA [id number] [address] [place] [address] [place] Office Visit (Cardiology)on 10-05-2021 [...] for follow-up of a hospitalization for D/C [facility] 08/09/2021. Patient is in the office for the first time after being seen in consultation at [facility] last month for an episode of [...] 05Oct2021 11:53AM Heart Rate69, L Brachial Artery Zgxcfqso389, LUE, Sitting Ocjcqfeeh88, LUE, Sitting Height5 ft 4 in Rjenxh848 lb BMI Cgznsxjzlw34.67 kg/m2 BSA Calculated1.96 Tobacco Useb) No Fall [...] Oct 05 2021 12:22PM EST (Author) Normal [employer] Tobacco Screening.on 022 Fall risk assessment a) No falls within the last year [facility] [address] [place] Work Phone: Tobacco use status CP b) No [facility] [address] [place] Work Phone: CULTURE URINEon 09-07-2021 CULTURE URINE Culture Observations : LIGHT GROWTH OF MIXED GENITAL RAMSES. NO POTENTIAL PATHOGENS SEEN. Normal [facility] Comment on above: Performed By: #### B MP #### [facility] [address] [place] [address] Dr. Millie Flores UA RANDOM W/MICROSCOPICon BACTERIA TRACE Abnormal NONE SEEN [facility] Comment on above: Performed By: #### B MP #### [facility] [id number] Millie Flores Bilirubin Ql (U) Negative Normal NEGATIVE [facility] Comment on above: Performed By: #### B MP #### [facility] [address] [address] [address] Millie Flores CAST NONE SEEN Normal NONE SEEN [facility] Comment on above: Performed By: #### B MP #### [facility] [address] [place] [address] Dr. Millie Flores Clarity (U) CLEAR Normal CLEAR [facility] Comment on above: Performed By: #### B MP #### [facility] [address] [place] [address] Dr. Millie Flores Color (U) LT. YELLOW Normal YELLOW [facility] Comment on above: Performed By: #### B MP #### [facility] [address] [place] [address] Dr. Millie Flores Crystals LM Nom (Urine sed) NONE SEEN Normal NONE SEEN [facility] Comment on above: Performed By: #### B MP #### [facility] [address] [place] [address] Dr. Millie Flores Epithelial cells LM Ql (Urine sed) FEW Abnormal NONE SEEN /RARE [facility] Comment on above: Performed By: #### B MP #### [facility] [address] [place] [address] Dr. Millie Flores Glucose Ql (U) Negative Normal NEGATIVE [facility] Comment on above: Performed By: #### B MP #### [facility] [address] [place] [address] Dr. Millie Flores Hemoglobin Ql (U) Negative Normal NEGATIVE [facility] Comment on above: Performed By: #### B MP #### [facility] [address] [place] [address] Dr. Millie Flores Ketones Ql (U) Negative Normal NEGATIVE [facility] Comment on above: Performed By: #### B MP #### [facility] [address] [place] [address] Dr. Millie Flores LEUKOCYTES SMALL Abnormal NEGATIVE [facility] Comment on above: Performed By: #### B MP #### [facility] [address] [place] [address] Dr. Millie Flores MUCOUS TRACE Abnormal NONE SEEN [facility] Comment on above: Performed By: #### B MP #### [facility] [address] [address] [address] Millie Flores Nitrite Ql (U) Negative Normal NEGATIVE [facility] Comment on above: Performed By: #### B MP #### [facility] [address] [place] [address] Dr. Millie Flores pH (U) 5.5 [pH] Normal 5-9 [facility] Comment on above: Performed By: #### B MP #### [facility] [address] [place] [address] Dr. Millie Flores RBC 0-2 Normal 0-2 [facility] Comment on above: Performed By: #### B MP #### [facility] [address] [place] [address] Dr. Millie Flores SPEC GRAVITY >=1.030 Abnormal 1.005-<=1.02 5 [facility] Comment on above: Performed By: #### B MP #### [facility] [address] [place] [address] Dr. Millie Flores UA PROTEIN Negative Normal NEGATIVE/ TRACE [facility] Comment on above: Performed By: #### B MP #### [facility] [address] [place] [address] Dr. Millie Flores Urobilinogen Qn (U) 0.2 {Robert'U}/dL Normal 0.2 - 1. 0 [facility] Comment on above: Performed By: #### B MP #### [facility] [address] [place] [address] Dr. Millie Flores WBC 5-10 Abnormal NONE SEEN [facility] Comment on above: Performed By: #### B MP #### [facility] [address] [place] [address] Dr. Millie Flores MM screening mammo BI w/CADo n 09-04-2021 MM screening mammo BI w/CAD [facility] [place] [address] [place] [address] Mammography Report Signed Patient: Areli Hawkins MR#: [id number] : 1945 Acct:[id number] Age/Sex: 75 / F ADM Date: 09/02/21 Loc: [place] Room: Type: [facility] Attending Dr: Anurag Bolton DO Ordering Provider: [...] Marbella Mistry M.D.09/04/2021 11:34 AM Dictation Location: [facility] Transcribed By: [facility] 09/04/21 1134 Dictated By: Marbella Mistry MD 09/04/21 113 Signed By: 09/04/21 1134 [facility] CBC AUTO DIFFon 08-30-2021 BASO # 0.0 103/ul Normal 0.0-0.1 [facility] Comment on above: Performed By: #### C BC #### [facility] [address] [place] [address] Dr. Millie Flores Basophils/100 WBC (Bld) 0.6 % Normal 0.2-2.0 [facility] Comment on above: Performed By: #### C BC #### [facility] [address] [place] [address] Dr. Millie Flores EO # 0.0 103/ul Normal 0.0-0.7 [facility] Comment on above: Performed By: #### C BC #### [facility] [address] [place] [address] Dr. Millie Flores Eosinophils/100 WBC (Bld) 0.9 % Normal 0.9-7.0 [facility] Comment on above: Performed By: #### C BC #### [facility] [address] [place] [address] Dr. Millie Flores Erythrocyte distribution width (RBC) [Ratio] 48.3 % Critically high 11.0-15.0 [facility] Comment on above: Performed By: #### C BC #### [facility] [address] [place] [address] Dr. Millie Flores Hematocrit (Bld) [Volume fraction] 38.1 % Normal 36.0-48.0 [facility] Comment on above: Performed By: #### C BC #### [facility] [address] [place] [address] Dr. Millie Flores Hemoglobin (Bld) [Mass/Vol] 12.1 g/dL Normal 12.0-16.0 [facility] Comment on above: Performed By: #### C BC #### [facility] [address] [place] [address] Dr. Millie Flores IG # 0.07 10e3/ul Critically high 0.00-0.03 [facility] Comment on above: Performed By: #### C BC #### [facility] [address] [place] [address] Dr. Millie Flores IG % 0.8 % Critically high 0.0-0.5 [facility] Comment on above: Performed By: #### C BC #### [facility] [address] [place] [address] Dr. Millie Flores LYMPH # 2.3 103/ul Normal 1.2-3.8 [facility] Comment on above: Performed By: #### C BC #### [facility] [address] [place] [address] Dr. Millie Flores Lymphocytes/100 WBC (Bld) 26.8 % Normal 20.5-60.0 [facility] Comment on above: Performed By: #### C BC #### [facility] [address] [place] [address] Dr. Millie Flores MANUAL DIFF REQ NO Normal [facility] Comment on above: Performed By: #### C BC #### [facility] [address] [place] [address] Dr. Millie Flores MCH (RBC) [Entitic mass] 30.7 pg Normal 26.7-34.0 [facility] Comment on above: Performed By: #### C BC #### [facility] [address] [place] [address] Dr. Millie Flores MCHC (RBC) [Mass/Vol] 31.8 g/dL Normal 29.9-35.2 [facility] Comment on above: Performed By: #### C BC #### [facility] [address] [place] [address] Dr. Millie Flores MCV (RBC) [Entitic vol] 96.7 fL Normal 81.0-99.0 [facility] Comment on above: Performed By: #### C BC #### [facility] [address] [place] [address] Dr. Millie Flores MONO # 0.9 103/ul Critically high 0.3-0.8 [facility] Comment on above: Performed By: #### C BC #### [facility] [address] [place] [address] Dr. Millie Flores Monocytes/100 WBC (Bld) 11.4 % Normal 1.7-12.0 [facility] Comment on above: Performed By: #### C BC #### [facility] [address] [place] [address] Dr. Millie Flores NEUT # 5.1 103/ul Normal 1.4-6.5 [facility] Comment on above: Performed By: #### C BC #### [facility] [address] [place] [address] Dr. Millie Flores Neutrophils/100 WBC (Bld) 59.5 % Normal 43.0-75.0 [facility] Comment on above: Performed By: #### C BC #### [facility] [address] [place] [address] Dr. Millie Flores Platelet mean volume (Bld) [Entitic vol] 9.5 fL Normal 9.5-13.5 [facility] Comment on above: Performed By: #### C BC #### [facility] [address] [place] [address] Dr. Millie Flores PLT 239 103/ul Normal 150-450 [facility] Comment on above: Performed By: #### C BC #### [facility] [address] [place] [address] Dr. Millie Flores RBC 3.94 106/ul Critically low 4.20-5.40 [facility] Comment on above: Performed By: #### C BC #### [facility] [address] [place] [address] Dr. Millie Flores WBC 8.7 103/ul Normal 4.0-11.0 [facility] Comment on above: Performed By: #### C BC #### [facility] [address] [place] [address] Dr. Millie Flores PROF 14(COMP METB)on 021 Albumin [Mass/Vol] 3.4 g/dL Critically low 3.5-5.0 [facility] Comment on above: Performed By: #### C ALINE HSTROPN #### [facility] [address] [place] [address] Dr. Millie Flores Albumin/Globulin [Mass ratio] 1.0 {ratio} Normal [facility] Comment on above: Performed By: #### C ALINE HSTROPN #### [facility] [address] [place] [address] Dr. Millie Flores ALP [Catalytic activity/Vol] 77 U/L Normal 38-126 [facility] Comment on above: Performed By: #### C ALINE HSTROPN #### [facility] [address] [place] [address] Dr. Millie Flores ALT [Catalytic activity/Vol] 17 U/L Normal 9-52 [facility] Comment on above: Performed By: #### C ALINE, HSTROPN #### [facility] [address] [address] [address] Millie Flores Anion gap [Moles/Vol] 13.1 mmol/L Normal [facility] Comment on above: Performed By: #### C ALINE, HSTROPN #### [facility] [address] [address] [address] Millie Flores AST [Catalytic activity/Vol] 19 U/L Normal 14-36 [facility] Comment on above: Performed By: #### C ALINE, HSTROPN #### [facility] [address] [place] [address] Dr. Millie Flores Bilirubin [Mass/Vol] 0.2 mg/dL Normal 0.2-1.3 [facility] Comment on above: Performed By: #### C ALINE, HSTROPN #### [facility] [address] [place] [address] Dr. Millie Flores Calcium [Mass/Vol] 9.2 mg/dL Normal 8.4-10.2 [facility] Comment on above: Performed By: #### C ALINE, HSTROPN #### [facility] [address] [place] [address] Dr. Millie Flores Chloride [Moles/Vol] 101 mmol/L Normal 98-107 [facility] Comment on above: Performed By: #### C ALINE, HSTROPN #### [facility] [address] [place] [address] Dr. Millie Flores CO2 [Moles/Vol] 26.3 mmol/L Normal 22.0-30.0 [facility] Comment on above: Performed By: #### C ALINE, HSTROPN #### [facility] [address] [place] [address] Dr. Millie Flores Creatinine [Mass/Vol] 0.99 mg/dL Normal 0.52-1.04 [facility] Comment on above: Performed By: #### C ALINE, HSTROPN #### [facility] [address] [address] [address] Millie Flores EGFR-AF MACANESE >60 Normal >=60 [facility] Comment on above: Performed By: #### C MP, HSTROPN #### [facility] [address] [address] [address] Millie Flores EGFR-NON AF MACANESE 55 mL/min/1.73m2 Critically low >=60 [facility] Comment on above: Performed By: #### C MP, HSTROPN #### [facility] [address] [address] [address] Millie Flores Globulin (S) [Mass/Vol] 3.8 g/dL Normal [facility] Comment on above: Performed By: #### C MP, HSTROPN #### [facility] [address] [place] [address] Dr. Millie Flores Glucose [Mass/Vol] 111 mg/dL Critically high 74-106 [facility] Comment on above: Performed By: #### C MP, HSTROPN #### [facility] [address] [address] [address] Millie Flores Potassium [Moles/Vol] 3.4 mmol/L Normal 3.4-5.0 [facility] Comment on above: Performed By: #### C MP, HSTROPN #### [facility] [address] [address] [address] Millie Flores Protein [Mass/Vol] 7.2 g/dL Normal 6.1-8.2 [facility] Comment on above: Performed By: #### C MP, HSTROPN #### [facility] [address] [address] [address] Millie Flores Sodium [Moles/Vol] 137 mmol/L Normal 137-145 [facility] Comment on above: Performed By: #### C MP, HSTROPN #### [facility] [address] [address] [address] Millie Flores Urea nitrogen [Mass/Vol] 12.0 mg/dL Normal 7.0-17.0 [facility] Comment on above: Performed By: #### C MP, HSTROPN #### [facility] [address] [address] [address] Millie Flores Urea nitrogen/Creatinine [Mass ratio] 12.1 mg/mg Normal [facility] Comment on above: Performed By: #### C MP, HSTROPN #### [facility] [address] [address] [address] Millie Flores TROPONIN, HIGH SENSITIVITYon 08-30-2021 HSTROP 6.2 pg/mL Normal 4.0-35.5 [facility] Comment on above: Result Comment: CUT- OFF POINTS HAVE BEEN ESTABLISHED BASED ON THE FOURTH UNIVERSAL DEFINITIONS OF MYOCARDIAL INFARCTION. THE UPPER REFERENCE LIMIT (URL) OF TROPONIN, DEFINED THE 99TH PERCENTILE OF cTnI DISTRIBUTION IN A REFERENCE POPULATION, HAS BEEN CONFIRMED THE DECISION THRESHOLD FOR [place] DIAGNOSIS. Performed By: #### C ALINE, HSTROPN #### [facility] [address] [place] [address] Dr. Millie Flores XR CHEST 1 Von [...] by: ALVIN MONZON Date: 2021-08-30 05:42 Normal [facility] Complete Blood Count Auto Di ffon 08-09-2021 Basophils (Bld) [#/Vol] 0.0 10*3/uL Normal 0.0-0.2 [facility] Comment on above: Result Comment: PERF ORMED BY: [place] [address] PATHOLOGIST STAGE RIGGER ROBYN CASAS M.D. Performed By: #### C BC, LIPASE, LACTIC, CMP #### [place] [address] [place] Basophils/100 WBC (Bld) 0.3 % Normal . [facility] Comment on above: Performed By: #### C BC, LIPASE, LACTIC, CMP #### [address] Eosinophils (Bld) [#/Vol] 0.3 10*3/uL Normal 0.0-0.45 [facility] Comment on above: Performed By: #### C BC, LIPASE, LACTIC, CMP #### [address] Eosinophils/100 WBC (Bld) 2.8 % Normal . [facility] Comment on above: Performed By: #### C BC, LIPASE, LACTIC, CMP #### [address] Erythrocyte distribution width (RBC) [Ratio] 14.4 % Normal 11.9-15.3 [facility] Comment on above: Performed By: #### C BC, LIPASE, LACTIC, CMP #### [address] Hematocrit (Bld) [Volume fraction] 32.7 % Low 34.0-46.4 [facility] Comment on above: Performed By: #### C BC, LIPASE, LACTIC, CMP #### [address] Hemoglobin (Bld) [Mass/Vol] 11.0 g/dL Low 11.8-15.4 [facility] Comment on above: Performed By: #### C BC, LIPASE, LACTIC, CMP #### [address] Lymphocytes (Bld) [#/Vol] 1.3 10*3/uL Normal 1.00-4.8 [facility] Comment on above: Performed By: #### C BC, LIPASE, LACTIC, CMP #### [address] Lymphocytes/100 WBC (Bld) 14.0 % Normal . [facility] Comment on above: Performed By: #### C BC, LIPASE, LACTIC, CMP #### [facility] [address] MCH (RBC) [Entitic mass] 31.6 pg Normal 24.7-34.3 [facility] Comment on above: Performed By: #### C BC, LIPASE, LACTIC, CMP #### [address] MCV (RBC) [Entitic vol] 94.0 fL Normal 80-100 [facility] Comment on above: Performed By: #### C BC, LIPASE, LACTIC, CMP #### [address] Mean Corpuscular HGB Conc 33.6 g/dL Normal 32.0-35.0 [facility] Comment on above: Performed By: #### C BC, LIPASE, LACTIC, CMP #### [address] Monocytes (Bld) [#/Vol] 1.3 10*3/uL High 0.0-0.8 [facility] Comment on above: Performed By: #### C BC, LIPASE, LACTIC, CMP #### [address] Monocytes/100 WBC (Bld) 13.7 % Normal . [facility] Comment on above: Performed By: #### C BC, LIPASE, LACTIC, CMP #### [address] Neutrophils (Bld) [#/Vol] 6.5 10*3/uL Normal 1.8-7.7 [facility] Comment on above: Performed By: #### C BC, LIPASE, LACTIC, CMP #### [address] Neutrophils/100 WBC (Bld) 69.2 % Normal . [facility] Comment on above: Performed By: #### C BC, LIPASE, LACTIC, CMP #### [address] Nucleated RBC/100 WBC (Bld) [Ratio] 0.1 % Normal 0-0.5 [facility] Comment on above: Performed By: #### C BC, LIPASE, LACTIC, CMP #### [facility] [address] Platelet mean volume (Bld) [Entitic vol] 7.1 fL Normal 6.3-10.7 [facility] Comment on above: Performed By: #### C BC, LIPASE, LACTIC, CMP #### [facility] [address] Platelets (Bld) [#/Vol] 179 10*3/uL Normal 150-450 [facility] Comment on above: Performed By: #### C BC, LIPASE, LACTIC, CMP #### [address] RBC (Bld) [#/Vol] 3.48 10*6/uL Low 3.60-5.00 [facility] Comment on above: Performed By: #### C BC, LIPASE, LACTIC, CMP #### [address] WBC (Bld) [#/Vol] 9.3 10*3/uL Normal 4.5-11.0 [facility] Comment on above: Performed By: #### C BC, LIPASE, LACTIC, CMP #### [address] Comprehensive Metabolic Pane lizy 08-09-2021 Albumin [Mass/Vol] 2.4 g/dL Low 3.2-5.5 [facility] Comment on above: Performed By: #### C BC, LIPASE, LACTIC, CMP #### [address] Albumin/Globulin [Mass ratio] 0.9 {ratio} Normal [facility] Comment on above: Performed By: #### C BC, LIPASE, LACTIC, CMP #### [address] ALP [Catalytic activity/Vol] 53 U/L Normal 32-92 [facility] Comment on above: Performed By: #### C BC, LIPASE, LACTIC, CMP #### [facility] [address] [place] [address] [place] ALT [Catalytic activity/Vol] 15 U/L Normal 10-60 [facility] Comment on above: Performed By: #### C BC, LIPASE, LACTIC, CMP #### [facility] [address] AST [Catalytic activity/Vol] 20 U/L Normal 10-42 [facility] Comment on above: Performed By: #### C BC, LIPASE, LACTIC, CMP #### [facility] [address] Bilirubin [Mass/Vol] 0.4 mg/dL Normal 0.3-1.2 [facility] Comment on above: Performed By: #### C BC, LIPASE, LACTIC, CMP #### [facility] [address] Calcium [Mass/Vol] 8.1 mg/dL Low 8.2-10.2 [facility] Comment on above: Performed By: #### C BC, LIPASE, LACTIC, CMP #### [facility] [address] [place] [address] [place] Chloride [Moles/Vol] 102 mmol/L Normal 95-114 [facility] Comment on above: Performed By: #### C BC, LIPASE, LACTIC, CMP #### [facility] [address] [place] [address] [place] CO2 [Moles/Vol] 29.7 mmol/L Normal 22.0-30.0 [facility] Comment on above: Performed By: #### C BC, LIPASE, LACTIC, CMP #### [facility] [address] [place] [address] [place] Creatinine [Mass/Vol] 0.57 mg/dL Normal 0.44-1.03 [facility] Comment on above: Performed By: #### C BC, LIPASE, LACTIC, CMP #### [facility] [address] [place] [address] [place] Creatinine Clr Calc Pharmacy 73.94 Normal [facility] Comment on above: Result Comment: PERF ORMED BY: [facility] [address] [place] [address] PATHOLOGIST STAGE RIGGER ROBYN CASAS M.D. Performed By: #### C BC, LIPASE, LACTIC, CMP #### [address] Estimated GFR ( Joey > 60 [facility] Comment on above: Result Comment: GFR estimated reference range: According to KDOQI guidelines, <60 ml/min/1.73m2 is sufficient to diagnose a patient with chronic kidney disease. Performed By: #### C BC, LIPASE, LACTIC, CMP #### [facility] [address] Estimated GFR (Non- Am > 60 [facility] Comment on above: Performed By: #### C BC, LIPASE, LACTIC, CMP #### [facility] [address] Globulin (S) [Mass/Vol] 2.6 g/dL [facility] Comment on above: Performed By: #### C BC, LIPASE, LACTIC, CMP #### [address] Glucose [Mass/Vol] 104 mg/dL High 70-100 [facility] Comment on above: Result Comment: [place] Glucose Reference Range is dependent on time and content of last meal. Glucose of more than 200 mg/dL in a nonstressed, ambulatory subject supports the diagnosis of Diabetes Mellitus. ADA recommended reference range Performed By: #### C BC, LIPASE, LACTIC, CMP #### [address] Potassium [Moles/Vol] 3.4 mmol/L Low 3.5-5.1 [facility] Comment on above: Performed By: #### C BC, LIPASE, LACTIC, CMP #### [facility] [address] Protein [Mass/Vol] 5.0 g/dL Low 6.1-7.9 [facility] Comment on above: Performed By: #### C BC, LIPASE, LACTIC, CMP #### [facility] [address] Sodium [Moles/Vol] 140 mmol/L Normal 136-146 [facility] Comment on above: Performed By: #### C BC, LIPASE, LACTIC, CMP #### [facility] [address] Urea nitrogen [Mass/Vol] 9 mg/dL Normal 9-23 [facility] Comment on above: Performed By: #### C BC, LIPASE, LACTIC, CMP #### [facility] [address] Glucose Poct Glucometerson 1 10-09-2020 Glucose [Mass/Vol] 108 mg/dL Normal [facility] Comment on above: Result Comment: [place] om Glucose Reference Range is dependent on time and content of last meal. Glucose of more than 200 mg/dL in a nonstressed, ambulatory subject supports the diagnosis of Diabetes Mellitus. PERFORMED BY: [place] [address] PATHOLOGIST STAGE RIGGER ROBYN CASAS M.D. Performed By: #### C BC, LIPASE, LACTIC, CMP #### [facility] [address] Glucose [Mass/Vol] 87 mg/dL Normal [facility] Comment on above: Result Comment: [place] om Glucose Reference Range is dependent on time and content of last meal. Glucose of more than 200 mg/dL in a nonstressed, ambulatory subject supports the diagnosis of Diabetes Mellitus. PERFORMED BY: [place] [address] PATHOLOGIST STAGE RIGGER ROBYN CASAS M.D. Performed By: #### C BC, LIPASE, LACTIC, CMP #### [facility] [address] Glucose [Mass/Vol] 102 mg/dL Normal [facility] Comment on above: Result Comment: [place] om Glucose Reference Range is dependent on time and content of last meal. Glucose of more than 200 mg/dL in a nonstressed, ambulatory subject supports the diagnosis of Diabetes Mellitus. PERFORMED BY: [place] [address] PATHOLOGIST STAGE RIGGER ROBYN CASAS M.D. Performed By: #### C BC, LIPASE, LACTIC, CMP #### [address] Complete Blood Count Auto Di ffon 08-08-2021 Basophils (Bld) [#/Vol] 0.0 10*3/uL Normal 0.0-0.2 [facility] Comment on above: Result Comment: PERF ORMED BY: [place] [address] PATHOLOGIST STAGE RIGGER ROBYN CASAS M.D. Performed By: #### C BC, LIPASE, LACTIC, CMP #### [address] Basophils/100 WBC (Bld) 0.2 % Normal . [facility] Comment on above: Performed By: #### C BC, LIPASE, LACTIC, CMP #### [address] Eosinophils (Bld) [#/Vol] 0.2 10*3/uL Normal 0.0-0.45 [facility] Comment on above: Performed By: #### C BC, LIPASE, LACTIC, CMP #### [address] Eosinophils/100 WBC (Bld) 2.2 % Normal . [facility] Comment on above: Performed By: #### C BC, LIPASE, LACTIC, CMP #### [address] Erythrocyte distribution width (RBC) [Ratio] 14.0 % Normal 11.9-15.3 [facility] Comment on above: Performed By: #### C BC, LIPASE, LACTIC, CMP #### [address] Hematocrit (Bld) [Volume fraction] 31.5 % Low 34.0-46.4 [facility] Comment on above: Performed By: #### C BC, LIPASE, LACTIC, CMP #### [address] [place] [id number] [place] Hemoglobin (Bld) [Mass/Vol] 10.6 g/dL Low 11.8-15.4 [facility] Comment on above: Performed By: #### C BC, LIPASE, LACTIC, CMP #### [address] Lymphocytes (Bld) [#/Vol] 1.1 10*3/uL Normal 1.00-4.8 [facility] Comment on above: Performed By: #### C BC, LIPASE, LACTIC, CMP #### [address] Lymphocytes/100 WBC (Bld) 11.8 % Normal . [facility] Comment on above: Performed By: #### C BC, LIPASE, LACTIC, CMP #### [address] MCH (RBC) [Entitic mass] 31.7 pg Normal 24.7-34.3 [facility] Comment on above: Performed By: #### C BC, LIPASE, LACTIC, CMP #### [address] MCV (RBC) [Entitic vol] 94.3 fL Normal 80-100 [facility] Comment on above: Performed By: #### C BC, LIPASE, LACTIC, CMP #### [address] Mean Corpuscular HGB Conc 33.6 g/dL Normal 32.0-35.0 [facility] Comment on above: Performed By: #### C BC, LIPASE, LACTIC, CMP #### [address] Monocytes (Bld) [#/Vol] 1.1 10*3/uL High 0.0-0.8 [facility] Comment on above: Performed By: #### C BC, LIPASE, LACTIC, CMP #### [address] Monocytes/100 WBC (Bld) 11.6 % Normal . [facility] Comment on above: Performed By: #### C BC, LIPASE, LACTIC, CMP #### [address] Neutrophils (Bld) [#/Vol] 6.8 10*3/uL Normal 1.8-7.7 [facility] Comment on above: Performed By: #### C BC, LIPASE, LACTIC, CMP #### [address] Neutrophils/100 WBC (Bld) 74.2 % Normal . [facility] Comment on above: Performed By: #### C BC, LIPASE, LACTIC, CMP #### [address] Nucleated RBC/100 WBC (Bld) [Ratio] 0.0 % Normal 0-0.5 [facility] Comment on above: Performed By: #### C BC, LIPASE, LACTIC, CMP #### [address] Platelet mean volume (Bld) [Entitic vol] 7.1 fL Normal 6.3-10.7 [facility] Comment on above: Performed By: #### C BC, LIPASE, LACTIC, CMP #### [place] [address] [place] Platelets (Bld) [#/Vol] 173 10*3/uL Normal 150-450 [facility] Comment on above: Performed By: #### C BC, LIPASE, LACTIC, CMP #### [place] [address] [place] RBC (Bld) [#/Vol] 3.34 10*6/uL Low 3.60-5.00 [facility] Comment on above: Performed By: #### C BC, LIPASE, LACTIC, CMP #### [place] [address] [place] WBC (Bld) [#/Vol] 9.2 10*3/uL Normal 4.5-11.0 [facility] Comment on above: Performed By: #### C BC, LIPASE, LACTIC, CMP #### [address] [address] [place] Comprehensive Metabolic Pane lizy 08-08-2021 Albumin [Mass/Vol] 2.2 g/dL Low 3.2-5.5 [facility] Comment on above: Performed By: #### C BC, LIPASE, LACTIC, CMP #### [facility] [address] Albumin/Globulin [Mass ratio] 0.9 {ratio} Normal [facility] Comment on above: Performed By: #### C BC, LIPASE, LACTIC, CMP #### [facility] [address] ALP [Catalytic activity/Vol] 43 U/L Normal 32-92 [facility] Comment on above: Performed By: #### C BC, LIPASE, LACTIC, CMP #### [facility] [address] ALT [Catalytic activity/Vol] 16 U/L Normal 10-60 [facility] Comment on above: Performed By: #### C BC, LIPASE, LACTIC, CMP #### [facility] [address] AST [Catalytic activity/Vol] 18 U/L Normal 10-42 [facility] Comment on above: Performed By: #### C BC, LIPASE, LACTIC, CMP #### [facility] [address] Bilirubin [Mass/Vol] 0.4 mg/dL Normal 0.3-1.2 [facility] Comment on above: Performed By: #### C BC, LIPASE, LACTIC, CMP #### [facility] [address] Calcium [Mass/Vol] 8.1 mg/dL Low 8.2-10.2 [facility] Comment on above: Performed By: #### C BC, LIPASE, LACTIC, CMP #### [facility] [address] Chloride [Moles/Vol] 102 mmol/L Normal 95-114 [facility] Comment on above: Performed By: #### C BC, LIPASE, LACTIC, CMP #### [facility] [address] CO2 [Moles/Vol] 29.1 mmol/L Normal 22.0-30.0 [facility] Comment on above: Performed By: #### C BC, LIPASE, LACTIC, CMP #### [facility] [address] Creatinine [Mass/Vol] 0.51 mg/dL Normal 0.44-1.03 [facility] Comment on above: Performed By: #### C BC, LIPASE, LACTIC, CMP #### [address] Creatinine Clr Calc Pharmacy 72.99 [facility] Comment on above: Performed By: #### C BC, LIPASE, LACTIC, CMP #### [address] Estimated GFR ( Joey > 60 [facility] Comment on above: Result Comment: GFR estimated reference range: According to KDOQI guidelines, <60 ml/min/1.73m2 is sufficient to diagnose a patient with chronic kidney disease. Performed By: #### C BC, LIPASE, LACTIC, CMP #### [address] Estimated GFR (Non- Am > 60 [facility] Comment on above: Performed By: #### C BC, LIPASE, LACTIC, CMP #### [address] Globulin (S) [Mass/Vol] 2.5 g/dL [facility] Comment on above: Performed By: #### C BC, LIPASE, LACTIC, CMP #### [address] Glucose [Mass/Vol] 149 mg/dL High 70-100 [facility] Comment on above: Result Comment: [place] om Glucose Reference Range is dependent on time and content of last meal. Glucose of more than 200 mg/dL in a nonstressed, ambulatory subject supports the diagnosis of Diabetes Mellitus. ADA recommended reference range Performed By: #### C BC, LIPASE, LACTIC, CMP #### [address] [place] [address] [place] Potassium [Moles/Vol] 3.6 mmol/L Normal 3.5-5.1 [facility] Comment on above: Performed By: #### C BC, LIPASE, LACTIC, CMP #### [facility] [address] Protein [Mass/Vol] 4.7 g/dL Low 6.1-7.9 [facility] Comment on above: Performed By: #### C BC, LIPASE, LACTIC, CMP #### [facility] [address] Sodium [Moles/Vol] 140 mmol/L Normal 136-146 [facility] Comment on above: Performed By: #### C BC, LIPASE, LACTIC, CMP #### [address] Urea nitrogen [Mass/Vol] 10 mg/dL Normal 9-23 [facility] Comment on above: Performed By: #### C BC, LIPASE, LACTIC, CMP #### [address] Glucose Poct Glucometerson 1 2020 Glucose [Mass/Vol] 102 mg/dL Normal [facility] Comment on above: Result Comment: [place] Glucose Reference Range is dependent on time and content of last meal. Glucose of more than 200 mg/dL in a nonstressed, ambulatory subject supports the diagnosis of Diabetes Mellitus. PERFORMED BY: [place] [address] PATHOLOGIST STAGE RIGGER ROBYN CASAS M.D. Performed By: #### C BC, LIPASE, LACTIC, CMP #### [facility] [address] [place] [address] Commemt1 Glu2: Cleaned Meter Normal [facility] Comment on above: Result Comment: PERF ORMED BY: [place] [address] PATHOLOGIST STAGE RIGGER ROBYN CASAS M.D. Performed By: #### C BC, LIPASE, LACTIC, CMP #### [address] Glucose [Mass/Vol] 123 mg/dL Normal [facility] Comment on above: Result Comment: [place] om Glucose Reference Range is dependent on time and content of last meal. Glucose of more than 200 mg/dL in a nonstressed, ambulatory subject supports the diagnosis of Diabetes Mellitus. Performed By: #### C BC, LIPASE, LACTIC, CMP #### [address] Commemt1 Glu2: Cleaned Meter [facility] Comment on above: Result Comment: PERF ORMED BY: [place] [address] PATHOLOGIST STAGE RIGGER ROBYN CASAS M.D. Performed By: #### C BC, LIPASE, LACTIC, CMP #### [address] Glucose [Mass/Vol] 125 mg/dL Normal [facility] Comment on above: Result Comment: [place] om Glucose Reference Range is dependent on time and content of last meal. Glucose of more than 200 mg/dL in a nonstressed, ambulatory subject supports the diagnosis of Diabetes Mellitus. Performed By: #### C BC, LIPASE, LACTIC, CMP #### [address] Commemt1 Glu2: Cleaned Meter [facility] Comment on above: Result Comment: PERF ORMED BY: [place] [address] PATHOLOGIST STAGE RIGGER ROBYN CASAS M.D. Performed By: #### C BC, LIPASE, LACTIC, CMP #### [address] Glucose [Mass/Vol] 141 mg/dL Normal [facility] Comment on above: Result Comment: [place] om Glucose Reference Range is dependent on time and content of last meal. Glucose of more than 200 mg/dL in a nonstressed, ambulatory subject supports the diagnosis of Diabetes Mellitus. Performed By: #### C BC, LIPASE, LACTIC, CMP #### [facility] [address] Ironon 08-08-2021 Iron [Mass/Vol] 15 ug/dL Low 40-150 [facility] Comment on above: Performed By: #### C BC, LIPASE, LACTIC, CMP #### [address] Magnesiumon 08-08-2021 Magnesium [Mass/Vol] 2.0 mg/dL Normal 1.6-2.6 [facility] Comment on above: Performed By: #### C BC, LIPASE, LACTIC, CMP #### [facility] [address] [place] [address] Phosphoruson 08-08-2021 Phosphate [Mass/Vol] 3.2 mg/dL Normal 2.5-4.6 [facility] Comment on above: Performed By: #### C BC, LIPASE, LACTIC, CMP #### [address] Total Iron Binding Capacityo n 08-08-2021 Total Iron Binding Capacity 162 ug/dL Low 255-450 [facility] Comment on above: Performed By: #### C BC, LIPASE, LACTIC, CMP #### [facility] [address] [place] [address] Transferrin [Mass/Vol] 116 mg/dL Low 180-380 [facility] Comment on above: Performed By: #### C BC, LIPASE, LACTIC, CMP #### [facility] [address] [place] [address] Vit. B12/Folate Profileon Cobalamin (Vitamin B12) [Mass/Vol] 1000 pg/mL High 180-914 [facility] Comment on above: Performed By: #### C BC, LIPASE, LACTIC, CMP #### [address] Folate 16.3 ng/mL Normal >5.9 [facility] Comment on above: Result Comment: Anita te reference range: >5.9 ng/ml The WHO technical consultation on folate and vitamin b12 deficiencies has determined that folate concentrations less than 4 ng/ml are considered deficient. PERFORMED BY: [place] [address] PATHOLOGIST STAGE RIGGER ROBYN CASAS M.D. Performed By: #### C BC, LIPASE, LACTIC, CMP #### [address] Basic Metabolic Panelon 11- Calcium [Mass/Vol] 7.9 mg/dL Low 8.2-10.2 [facility] Comment on above: Performed By: #### C BC, LIPASE, LACTIC, CMP #### [address] Chloride [Moles/Vol] 105 mmol/L Normal 95-114 [facility] Comment on above: Performed By: #### C BC, LIPASE, LACTIC, CMP #### [address] CO2 [Moles/Vol] 27.9 mmol/L Normal 22.0-30.0 [facility] Comment on above: Performed By: #### C BC, LIPASE, LACTIC, CMP #### [address] Creatinine [Mass/Vol] 0.50 mg/dL Normal 0.44-1.03 [facility] Comment on above: Performed By: #### C BC, LIPASE, LACTIC, CMP #### [address] Creatinine Clr Calc Pharmacy 72.99 [facility] Comment on above: Performed By: #### C BC, LIPASE, LACTIC, CMP #### [address] Estimated GFR ( Joey > 60 [facility] Comment on above: Result Comment: GFR estimated reference range: According to KDOQI guidelines, <60 ml/min/1.73m2 is sufficient to diagnose a patient with chronic kidney disease. Performed By: #### C BC, LIPASE, LACTIC, CMP #### [address] Estimated GFR (Non- Am > 60 [facility] Comment on above: Performed By: #### C BC, LIPASE, LACTIC, CMP #### [facility] [address] Glucose [Mass/Vol] 135 mg/dL High 70-100 [facility] Comment on above: Result Comment: [facility] Glucose Reference Range is dependent on time and content of last meal. Glucose of more than 200 mg/dL in a nonstressed, ambulatory subject supports the diagnosis of Diabetes Mellitus. ADA recommended reference range Performed By: #### C BC, LIPASE, LACTIC, CMP #### [facility] [address] Potassium [Moles/Vol] 3.5 mmol/L Normal 3.5-5.1 [facility] Comment on above: Performed By: #### C BC, LIPASE, LACTIC, CMP #### [address] Sodium [Moles/Vol] 140 mmol/L Normal 136-146 [facility] Comment on above: Performed By: #### C BC, LIPASE, LACTIC, CMP #### [place] [address] [place] Urea nitrogen [Mass/Vol] 10 mg/dL Normal 9-23 [facility] Comment on above: Performed By: #### C BC, LIPASE, LACTIC, CMP #### [address] Complete Blood Count Auto Di ffon 08-07-2021 Basophils (Bld) [#/Vol] 0.0 10*3/uL Normal 0.0-0.2 [facility] Comment on above: Result Comment: PERF ORMED BY: [place] [address] PATHOLOGIST STAGE RIGGER ROBYN CASAS M.D. Performed By: #### C BC, LIPASE, LACTIC, CMP #### [place] [address] [place] Basophils/100 WBC (Bld) 0.4 % Normal . [facility] Comment on above: Performed By: #### C BC, LIPASE, LACTIC, CMP #### [address] Eosinophils (Bld) [#/Vol] 0.1 10*3/uL Normal 0.0-0.45 [facility] Comment on above: Performed By: #### C BC, LIPASE, LACTIC, CMP #### [address] Eosinophils/100 WBC (Bld) 1.4 % Normal . [facility] Comment on above: Performed By: #### C BC, LIPASE, LACTIC, CMP #### [address] Erythrocyte distribution width (RBC) [Ratio] 14.3 % Normal 11.9-15.3 [facility] Comment on above: Performed By: #### C BC, LIPASE, LACTIC, CMP #### [address] Hematocrit (Bld) [Volume fraction] 31.9 % Low 34.0-46.4 [facility] Comment on above: Performed By: #### C BC, LIPASE, LACTIC, CMP #### [address] Hemoglobin (Bld) [Mass/Vol] 10.8 g/dL Low 11.8-15.4 [facility] Comment on above: Performed By: #### C BC, LIPASE, LACTIC, CMP #### [address] Lymphocytes (Bld) [#/Vol] 1.2 10*3/uL Normal 1.00-4.8 [facility] Comment on above: Performed By: #### C BC, LIPASE, LACTIC, CMP #### [address] Lymphocytes/100 WBC (Bld) 11.7 % Normal . [facility] Comment on above: Performed By: #### C BC, LIPASE, LACTIC, CMP #### [address] MCH (RBC) [Entitic mass] 31.7 pg Normal 24.7-34.3 [facility] Comment on above: Performed By: #### C BC, LIPASE, LACTIC, CMP #### [address] MCV (RBC) [Entitic vol] 94.3 fL Normal 80-100 [facility] Comment on above: Performed By: #### C BC, LIPASE, LACTIC, CMP #### [address] Mean Corpuscular HGB Conc 33.7 g/dL Normal 32.0-35.0 [facility] Comment on above: Performed By: #### C BC, LIPASE, LACTIC, CMP #### [address] Monocytes (Bld) [#/Vol] 1.3 10*3/uL High 0.0-0.8 [facility] Comment on above: Performed By: #### C BC, LIPASE, LACTIC, CMP #### [address] Monocytes/100 WBC (Bld) 12.8 % Normal . [facility] Comment on above: Performed By: #### C BC, LIPASE, LACTIC, CMP #### [address] Neutrophils (Bld) [#/Vol] 7.8 10*3/uL High 1.8-7.7 [facility] Comment on above: Performed By: #### C BC, LIPASE, LACTIC, CMP #### [address] Neutrophils/100 WBC (Bld) 73.7 % Normal . [facility] Comment on above: Performed By: #### C BC, LIPASE, LACTIC, CMP #### [address] Nucleated RBC/100 WBC (Bld) [Ratio] 0.0 % Normal 0-0.5 [facility] Comment on above: Performed By: #### C BC, LIPASE, LACTIC, CMP #### [address] [place] [address] [place] Platelet mean volume (Bld) [Entitic vol] 7.1 fL Normal 6.3-10.7 [facility] Comment on above: Performed By: #### C BC, LIPASE, LACTIC, CMP #### [facility] [address] Platelets (Bld) [#/Vol] 177 10*3/uL Normal 150-450 [facility] Comment on above: Performed By: #### C BC, LIPASE, LACTIC, CMP #### [address] RBC (Bld) [#/Vol] 3.39 10*6/uL Low 3.60-5.00 [facility] Comment on above: Performed By: #### C BC, LIPASE, LACTIC, CMP #### [address] WBC (Bld) [#/Vol] 10.5 10*3/uL Normal 4.5-11.0 [facility] Comment on above: Performed By: #### C BC, LIPASE, LACTIC, CMP #### [address] ECH echo transthoracicon ECH echo transthoracic [facility] Main [place] [address] [place] [address] Echocardiogram Signed Patient: Areli Hawkins MR#: [id number] : 1945 Acct:[id number] Age/Sex: 75 / F ADM Date: 08/01/21 Loc: Room: [address] [place] [address] Type: ADM IN Attending Dr: Tony Klein [...] DO 08/07/21 1155 Signed By: 08/07/21 1429 [facility] Free T4 (Free Thyroxine)on 10-07-2020 Free T4 [Mass/Vol] 1.02 ng/dL Normal 0.61-1.12 [facility] Comment on above: Performed By: #### C BC, LIPASE, LACTIC, CMP #### [facility] [address] [place] [id number] [facility] Glucose Poct Glucometerson 10-07-2020 Commemt1 Glu2: Cleaned Meter Normal [facility] Comment on above: Result Comment: PERF ORMED BY: [facility] [address] [place] [address] PATHOLOGIST STAGE RIGGER ROBYN CASAS M.D. Performed By: #### C BC, LIPASE, LACTIC, CMP #### [address] Glucose [Mass/Vol] 104 mg/dL Normal [facility] Comment on above: Result Comment: [place] [facility] Glucose Reference Range is dependent on time and content of last meal. Glucose of more than 200 mg/dL in a nonstressed, ambulatory subject supports the diagnosis of Diabetes Mellitus. Performed By: #### C BC, LIPASE, LACTIC, CMP #### [address] Glucose [Mass/Vol] 125 mg/dL Normal [facility] Comment on above: Result Comment: [place] [facility] Glucose Reference Range is dependent on time and content of last meal. Glucose of more than 200 mg/dL in a nonstressed, ambulatory subject supports the diagnosis of Diabetes Mellitus. Performed By: #### C BC, LIPASE, LACTIC, CMP #### [place] [address] [place] Commemt1 Glu2: Cleaned Meter Normal [facility] Comment on above: Result Comment: PERF ORMED BY: [facility] [address] [place] [address] PATHOLOGIST STAGE RIGGER ROBYN CASAS M.D. Performed By: #### C BC, LIPASE, LACTIC, CMP #### [facility] [address] [place] [address] [place] Glucose [Mass/Vol] 109 mg/dL Normal [facility] Comment on above: Result Comment: [place] [facility] Glucose Reference Range is dependent on time and content of last meal. Glucose of more than 200 mg/dL in a nonstressed, ambulatory subject supports the diagnosis of Diabetes Mellitus. Performed By: #### C BC, LIPASE, LACTIC, CMP #### [address] Commemt1 Glu2: Cleaned Meter [facility] Comment on above: Result Comment: PERF ORMED BY: [place] [address] PATHOLOGIST STAGE RIGGER ROBYN CASAS M.D. Performed By: #### C BC, LIPASE, LACTIC, CMP #### [address] Glucose [Mass/Vol] 118 mg/dL Normal [facility] Comment on above: Result Comment: [place] [facility] Glucose Reference Range is dependent on time and content of last meal. Glucose of more than 200 mg/dL in a nonstressed, ambulatory subject supports the diagnosis of Diabetes Mellitus. Performed By: #### C BC, LIPASE, LACTIC, CMP #### [address] Commemt1 Glu2: Cleaned Meter [facility] Comment on above: Result Comment: PERF ORMED BY: [place] [address] PATHOLOGIST STAGE RIGGER ROBYN CASAS M.D. Performed By: #### C BC, LIPASE, LACTIC, CMP #### [address] Glucose [Mass/Vol] 117 mg/dL Normal [facility] Comment on above: Result Comment: [place] [facility] Glucose Reference Range is dependent on time and content of last meal. Glucose of more than 200 mg/dL in a nonstressed, ambulatory subject supports the diagnosis of Diabetes Mellitus. Performed By: #### C BC, LIPASE, LACTIC, CMP #### [address] Magnesiumon 08-07-2021 Magnesium [Mass/Vol] 2.0 mg/dL Normal 1.6-2.6 [facility] Comment on above: Performed By: #### C BC, LIPASE, LACTIC, CMP #### [facility] [address] Phosphoruson 08-07-2021 Phosphate [Mass/Vol] 2.9 mg/dL Normal 2.5-4.6 [facility] Comment on above: Performed By: #### C BC, LIPASE, LACTIC, CMP #### [address] Thyroid Stimulating Hormoneo n 08-07-2021 TSH Qn 1.34 m[IU]/L Normal 0.45-5.33 [facility] Comment on above: Result Comment: PERF ORMED BY: [place] [address] PATHOLOGIST STAGE RIGGER ROBYN CASAS M.D. Performed By: #### C BC, LIPASE, LACTIC, CMP #### [address] Basic Metabolic Panelon 07-24 Calcium [Mass/Vol] 8.2 mg/dL Normal 8.2-10.2 [facility] Comment on above: Performed By: #### C BC, LIPASE, LACTIC, CMP #### [address] Chloride [Moles/Vol] 110 mmol/L Normal 95-114 [facility] Comment on above: Performed By: #### C BC, LIPASE, LACTIC, CMP #### [address] CO2 [Moles/Vol] 25.8 mmol/L Normal 22.0-30.0 [facility] Comment on above: Performed By: #### C BC, LIPASE, LACTIC, CMP #### [address] Creatinine [Mass/Vol] 0.55 mg/dL Normal 0.44-1.03 [facility] Comment on above: Performed By: #### C BC, LIPASE, LACTIC, CMP #### [facility] [address] Creatinine Clr Calc Pharmacy 72.55 [facility] Comment on above: Performed By: #### C BC, LIPASE, LACTIC, CMP #### [facility] [address] Estimated GFR ( Joey > 60 [facility] Comment on above: Result Comment: GFR estimated reference range: According to KDOQI guidelines, <60 ml/min/1.73m2 is sufficient to diagnose a patient with chronic kidney disease. Performed By: #### C BC, LIPASE, LACTIC, CMP #### [address] Estimated GFR (Non- Am > 60 [facility] Comment on above: Performed By: #### C BC, LIPASE, LACTIC, CMP #### [address] Glucose [Mass/Vol] 170 mg/dL High 70-100 [facility] Comment on above: Result Comment: [place] [facility] Glucose Reference Range is dependent on time and content of last meal. Glucose of more than 200 mg/dL in a nonstressed, ambulatory subject supports the diagnosis of Diabetes Mellitus. ADA recommended reference range Performed By: #### C BC, LIPASE, LACTIC, CMP #### [address] Potassium [Moles/Vol] 3.3 mmol/L Low 3.5-5.1 [facility] Comment on above: Performed By: #### C BC, LIPASE, LACTIC, CMP #### [address] Sodium [Moles/Vol] 144 mmol/L Normal 136-146 [facility] Comment on above: Performed By: #### C BC, LIPASE, LACTIC, CMP #### [address] Urea nitrogen [Mass/Vol] 7 mg/dL Low 9-23 [facility] Comment on above: Performed By: #### C BC, LIPASE, LACTIC, CMP #### [facility] [address] [place] [id number] [place] ECG 12 lead ECGon 08-06-2021 ECG 12 lead ECG [facility] Main [place] [address] [place] [address] Electrocardiograph Report Signed Patient: Areli Hawkins MR#: [id number] : 1945 Acct:[id number] Age/Sex: 75 / F ADM Date: 08/01/21 Loc: Room: [address] [place] [address] Type: ADM IN Attending Dr: Tony Klein [...] Signed By Alvin Pardo DO 08/07 1313 [facility] Glucose Poct Glucometerson 1 10-06-2020 Glucose [Mass/Vol] 139 mg/dL Normal [facility] Comment on above: Result Comment: [facility] Glucose Reference Range is dependent on time and content of last meal. Glucose of more than 200 mg/dL in a nonstressed, ambulatory subject supports the diagnosis of Diabetes Mellitus. PERFORMED BY: [place] [address] PATHOLOGIST STAGE RIGGER ROBYN CASAS M.D. Performed By: #### C BC, LIPASE, LACTIC, CMP #### [facility] [address] [place] [address] Commemt1 Glu2: Cleaned Meter [facility] Comment on above: Result Comment: PERF ORMED BY: [place] [address] PATHOLOGIST STAGE RIGGER ROBYN CASAS M.D. Performed By: #### C BC, LIPASE, LACTIC, CMP #### [address] Glucose [Mass/Vol] 180 mg/dL Normal [facility] Comment on above: Result Comment: [place] [facility] Glucose Reference Range is dependent on time and content of last meal. Glucose of more than 200 mg/dL in a nonstressed, ambulatory subject supports the diagnosis of Diabetes Mellitus. Performed By: #### C BC, LIPASE, LACTIC, CMP #### [address] Commemt1 Glu2: Cleaned Meter [facility] Comment on above: Result Comment: PERF ORMED BY: [place] [address] PATHOLOGIST STAGE RIGGER ROBYN CASAS M.D. Performed By: #### C BC, LIPASE, LACTIC, CMP #### [address] Glucose [Mass/Vol] 145 mg/dL Normal [facility] Comment on above: Result Comment: [place] [facility] Glucose Reference Range is dependent on time and content of last meal. Glucose of more than 200 mg/dL in a nonstressed, ambulatory subject supports the diagnosis of Diabetes Mellitus. Performed By: #### C BC, LIPASE, LACTIC, CMP #### [address] Glucose [Mass/Vol] 173 mg/dL Normal [facility] Comment on above: Result Comment: [place] [facility] Glucose Reference Range is dependent on time and content of last meal. Glucose of more than 200 mg/dL in a nonstressed, ambulatory subject supports the diagnosis of Diabetes Mellitus. PERFORMED BY: [place] [address] PATHOLOGIST STAGE RIGGER ROBYN CASAS M.D. Performed By: #### C BC, LIPASE, LACTIC, CMP #### [facility] [address] Hepatic Panelon 08-06-2021 Albumin [Mass/Vol] 2.3 g/dL Low 3.2-5.5 [facility] Comment on above: Performed By: #### C BC, LIPASE, LACTIC, CMP #### [facility] [address] Albumin/Globulin [Mass ratio] 1.0 {ratio} Normal [facility] Comment on above: Performed By: #### C BC, LIPASE, LACTIC, CMP #### [facility] [address] ALP [Catalytic activity/Vol] 38 U/L Normal 32-92 [facility] Comment on above: Performed By: #### C BC, LIPASE, LACTIC, CMP #### [facility] [address] ALT [Catalytic activity/Vol] 21 U/L Normal 10-60 [facility] Comment on above: Performed By: #### C BC, LIPASE, LACTIC, CMP #### [facility] [address] AST [Catalytic activity/Vol] 21 U/L Normal 10-42 [facility] Comment on above: Performed By: #### C BC, LIPASE, LACTIC, CMP #### [facility] [address] [place] [address] Bilirubin [Mass/Vol] 0.4 mg/dL Normal 0.3-1.2 [facility] Comment on above: Performed By: #### C BC, LIPASE, LACTIC, CMP #### [facility] [address] Bilirubin,Indirect 0.3 mg/dL Normal [facility] Comment on above: Performed By: #### C BC, LIPASE, LACTIC, CMP #### [facility] [address] Bilirubin.indirect [Mass/Vol] 0.1 mg/dL Normal 0.0-0.4 [facility] Comment on above: Performed By: #### C BC, LIPASE, LACTIC, CMP #### [facility] [address] Globulin (S) [Mass/Vol] 2.4 g/dL Normal [facility] Comment on above: Performed By: #### C BC, LIPASE, LACTIC, CMP #### [facility] [address] Protein [Mass/Vol] 4.7 g/dL Low 6.1-7.9 [facility] Comment on above: Performed By: #### C BC, LIPASE, LACTIC, CMP #### [facility] [address] Magnesiumon 08-06-2021 Magnesium [Mass/Vol] 2.1 mg/dL Normal 1.6-2.6 [facility] Comment on above: Result Comment: PERF ORMED BY: [place] [address] PATHOLOGIST STAGE RIGGER ROBYN CASAS M.D. Performed By: #### C BC, LIPASE, LACTIC, CMP #### [facility] [address] Phosphoruson 08-06-2021 Phosphate [Mass/Vol] 1.8 mg/dL Low 2.5-4.6 [facility] Comment on above: Performed By: #### C BC, LIPASE, LACTIC, CMP #### [address] Scan and CBCon 08-06-2021 Additional Comments Normal [facility] Comment on above: Result Comment: Abso lute monocytosis is commonly reactive in nature. However, if unexplained, recommend follow-up CBC in 3 months to evaluate for persistence. PERFORMED BY: [place] [address] PATHOLOGIST STAGE RIGGER ROBYN CASAS M.D. Performed By: #### C BC, LIPASE, LACTIC, CMP #### [facility] [address] Basophils (Bld) [#/Vol] 0.0 10*3/uL Normal 0.0-0.2 [facility] Comment on above: Performed By: #### C BC, LIPASE, LACTIC, CMP #### [address] Basophils/100 WBC (Bld) 0.3 % Normal . [facility] Comment on above: Performed By: #### C BC, LIPASE, LACTIC, CMP #### [address] Eosinophils (Bld) [#/Vol] 0.1 10*3/uL Normal 0.0-0.45 [facility] Comment on above: Performed By: #### C BC, LIPASE, LACTIC, CMP #### [address] Eosinophils/100 WBC (Bld) 0.6 % Normal . [facility] Comment on above: Performed By: #### C BC, LIPASE, LACTIC, CMP #### [address] Erythrocyte distribution width (RBC) [Ratio] 14.2 % Normal 11.9-15.3 [facility] Comment on above: Performed By: #### C BC, LIPASE, LACTIC, CMP #### [address] Hematocrit (Bld) [Volume fraction] 32.5 % Low 34.0-46.4 [facility] Comment on above: Performed By: #### C BC, LIPASE, LACTIC, CMP #### [address] Hemoglobin (Bld) [Mass/Vol] 10.9 g/dL Low 11.8-15.4 [facility] Comment on above: Performed By: #### C BC, LIPASE, LACTIC, CMP #### [address] Lymphocytes (Bld) [#/Vol] 1.3 10*3/uL Normal 1.00-4.8 [facility] Comment on above: Performed By: #### C BC, LIPASE, LACTIC, CMP #### [address] Lymphocytes/100 WBC (Bld) 12.8 % Normal . [facility] Comment on above: Performed By: #### C BC, LIPASE, LACTIC, CMP #### [address] MCH (RBC) [Entitic mass] 31.6 pg Normal 24.7-34.3 [facility] Comment on above: Performed By: #### C BC, LIPASE, LACTIC, CMP #### [address] MCV (RBC) [Entitic vol] 94.5 fL Normal 80-100 [facility] Comment on above: Performed By: #### C BC, LIPASE, LACTIC, CMP #### [address] Mean Corpuscular HGB Conc 33.5 g/dL Normal 32.0-35.0 [facility] Comment on above: Performed By: #### C BC, LIPASE, LACTIC, CMP #### [address] Monocytes (Bld) [#/Vol] 1.6 10*3/uL High 0.0-0.8 [facility] Comment on above: Performed By: #### C BC, LIPASE, LACTIC, CMP #### [address] Monocytes/100 WBC (Bld) 16.0 % Normal . [facility] Comment on above: Performed By: #### C BC, LIPASE, LACTIC, CMP #### [address] Neutrophils (Bld) [#/Vol] 6.9 10*3/uL Normal 1.8-7.7 [facility] Comment on above: Performed By: #### C BC, LIPASE, LACTIC, CMP #### [address] Neutrophils/100 WBC (Bld) 70.3 % Normal . [facility] Comment on above: Performed By: #### C BC, LIPASE, LACTIC, CMP #### [facility] [address] Nucleated RBC/100 WBC (Bld) [Ratio] 0.1 % Normal 0-0.5 [facility] Comment on above: Performed By: #### C BC, LIPASE, LACTIC, CMP #### [facility] [address] Platelet Estimate Normal Normal Normal [facility] Comment on above: Performed By: #### C BC, LIPASE, LACTIC, CMP #### [facility] [address] Platelet mean volume (Bld) [Entitic vol] 7.3 fL Normal 6.3-10.7 [facility] Comment on above: Performed By: #### C BC, LIPASE, LACTIC, CMP #### [address] Platelet Morphology Normal Normal Normal [facility] Comment on above: Performed By: #### C BC, LIPASE, LACTIC, CMP #### [place] [address] [place] Platelets (Bld) [#/Vol] 183 10*3/uL Normal 150-450 [facility] Comment on above: Performed By: #### C BC, LIPASE, LACTIC, CMP #### [address] RBC (Bld) [#/Vol] 3.44 10*6/uL Low 3.60-5.00 [facility] Comment on above: Performed By: #### C BC, LIPASE, LACTIC, CMP #### [address] RBC morphology finding Nom (Bld) Normal Normal [facility] Comment on above: Performed By: #### C BC, LIPASE, LACTIC, CMP #### [address] WBC (Bld) [#/Vol] 9.9 10*3/uL Normal 4.5-11.0 [facility] Comment on above: Performed By: #### C BC, LIPASE, LACTIC, CMP #### [facility] [address] [place] [address] Basic Metabolic Panelon 07-24 Calcium [Mass/Vol] 8.0 mg/dL Low 8.2-10.2 [facility] Comment on above: Order Comment: Name Collection Type:: Clean-Voided Midstream Performed By: #### U A #### [address] Chloride [Moles/Vol] 112 mmol/L Normal 95-114 [facility] Comment on above: Order Comment: Name Collection Type:: Clean-Voided Midstream Performed By: #### U A #### [address] CO2 [Moles/Vol] 20.1 mmol/L Low 22.0-30.0 [facility] Comment on above: Order Comment: Name Collection Type:: Clean-Voided Midstream Performed By: #### U A #### [address] Creatinine [Mass/Vol] 0.75 mg/dL Normal 0.44-1.03 [facility] Comment on above: Order Comment: Name Collection Type:: Clean-Voided Midstream Performed By: #### U A #### [place] [address] [place] Creatinine Clr Calc Pharmacy 71.76 [facility] Comment on above: Order Comment: Name Collection Type:: Clean-Voided Midstream Performed By: #### U A #### [address] Estimated GFR ( Joey > 60 [facility] Comment on above: Order Comment: Name Collection Type:: Clean-Voided Midstream Result Comment: GFR estimated reference range: According to KDOQI guidelines, <60 ml/min/1.73m2 is sufficient to diagnose a patient with chronic kidney disease. Performed By: #### U A #### [facility] [address] [place] [address] [place] Estimated GFR (Non- Am > 60 Normal [facility] Comment on above: Order Comment: Name Collection Type:: Clean-Voided Midstream Performed By: #### U A #### [address] Glucose [Mass/Vol] 114 mg/dL High 70-100 [facility] Comment on above: Order Comment: Name Collection Type:: Clean-Voided Midstream Result Comment: [place] Glucose Reference Range is dependent on time and content of last meal. Glucose of more than 200 mg/dL in a nonstressed, ambulatory subject supports the diagnosis of Diabetes Mellitus. ADA recommended reference range Performed By: #### U A #### [address] Potassium [Moles/Vol] 3.4 mmol/L Low 3.5-5.1 [facility] Comment on above: Order Comment: Name Collection Type:: Clean-Voided Midstream Performed By: #### U A #### [address] Sodium [Moles/Vol] 143 mmol/L Normal 136-146 [facility] Comment on above: Order Comment: Name Collection Type:: Clean-Voided Midstream Performed By: #### U A #### [address] Urea nitrogen [Mass/Vol] 5 mg/dL Low 9-23 [facility] Comment on above: Order Comment: Name Collection Type:: Clean-Voided Midstream Performed By: #### U A #### [address] Complete Blood Count Auto Di ffon 08-05-2021 Basophils (Bld) [#/Vol] 0.0 10*3/uL Normal 0.0-0.2 [facility] Comment on above: Result Comment: PERF ORMED BY: [place] [address] PATHOLOGIST STAGE RIGGER ROBYN CASAS M.D. Performed By: #### U A #### [address] Basophils/100 WBC (Bld) 0.0 % Normal . [facility] Comment on above: Performed By: #### U A #### [address] Eosinophils (Bld) [#/Vol] 0.0 10*3/uL Normal 0.0-0.45 [facility] Comment on above: Performed By: #### U A #### [address] Eosinophils/100 WBC (Bld) 0.0 % Normal . [facility] Comment on above: Performed By: #### U A #### [address] Erythrocyte distribution width (RBC) [Ratio] 14.3 % Normal 11.9-15.3 [facility] Comment on above: Performed By: #### U A #### [address] Hematocrit (Bld) [Volume fraction] 37.1 % Normal 34.0-46.4 [facility] Comment on above: Performed By: #### U A #### [address] Hemoglobin (Bld) [Mass/Vol] 12.2 g/dL Normal 11.8-15.4 [facility] Comment on above: Performed By: #### U A #### [address] Lymphocytes (Bld) [#/Vol] 0.5 10*3/uL Low 1.00-4.8 [facility] Comment on above: Performed By: #### U A #### [address] Lymphocytes/100 WBC (Bld) 5.0 % Normal . [facility] Comment on above: Performed By: #### U A #### [address] MCH (RBC) [Entitic mass] 31.5 pg Normal 24.7-34.3 [facility] Comment on above: Performed By: #### U A #### [facility] [address] MCV (RBC) [Entitic vol] 96.1 fL Normal 80-100 [facility] Comment on above: Performed By: #### U A #### [facility] [address] Mean Corpuscular HGB Conc 32.8 g/dL Normal 32.0-35.0 [facility] Comment on above: Performed By: #### U A #### [facility] [address] Monocytes (Bld) [#/Vol] 1.4 10*3/uL High 0.0-0.8 [facility] Comment on above: Performed By: #### U A #### [address] Monocytes/100 WBC (Bld) 13.9 % Normal . [facility] Comment on above: Performed By: #### U A #### [address] Neutrophils (Bld) [#/Vol] 8.4 10*3/uL High 1.8-7.7 [facility] Comment on above: Performed By: #### U A #### [address] Neutrophils/100 WBC (Bld) 81.1 % Normal . [facility] Comment on above: Performed By: #### U A #### [address] Nucleated RBC/100 WBC (Bld) [Ratio] 0.0 % Normal 0-0.5 [facility] Comment on above: Performed By: #### U A #### [address] Platelet mean volume (Bld) [Entitic vol] 7.6 fL Normal 6.3-10.7 [facility] Comment on above: Performed By: #### U A #### [address] [place] [address] [place] Platelets (Bld) [#/Vol] 182 10*3/uL Normal 150-450 [facility] Comment on above: Performed By: #### U A #### [address] RBC (Bld) [#/Vol] 3.86 10*6/uL Normal 3.60-5.00 [facility] Comment on above: Performed By: #### U A #### [address] WBC (Bld) [#/Vol] 10.4 10*3/uL Normal 4.5-11.0 [facility] Comment on above: Performed By: #### U A #### [address] Glucose Poct Glucometerson 1 10-05-2020 Commemt1 Glu2: Cleaned Meter Normal [facility] Comment on above: Result Comment: PERF ORMED BY: [place] [address] PATHOLOGIST STAGE RIGGER ROBYN CASAS M.D. Performed By: #### U A #### [address] Glucose [Mass/Vol] 97 mg/dL Normal [facility] Comment on above: Result Comment: [facility] Glucose Reference Range is dependent on time and content of last meal. Glucose of more than 200 mg/dL in a nonstressed, ambulatory subject supports the diagnosis of Diabetes Mellitus. Performed By: #### U A #### [address] Commemt1 Glu2: Cleaned Meter Normal [facility] Comment on above: Result Comment: PERF ORMED BY: [place] [address] PATHOLOGIST STAGE RIGGER ROBYN CASAS M.D. Performed By: #### U A #### [place] [address] [place] Glucose [Mass/Vol] 82 mg/dL Normal [facility] Comment on above: Result Comment: [place] Glucose Reference Range is dependent on time and content of last meal. Glucose of more than 200 mg/dL in a nonstressed, ambulatory subject supports the diagnosis of Diabetes Mellitus. Performed By: #### U A #### [address] Glucose [Mass/Vol] 101 mg/dL Normal [facility] Comment on above: Result Comment: [place] om Glucose Reference Range is dependent on time and content of last meal. Glucose of more than 200 mg/dL in a nonstressed, ambulatory subject supports the diagnosis of Diabetes Mellitus. PERFORMED BY: [place] [address] PATHOLOGIST STAGE RIGGER ROBYN CASAS M.D. Performed By: #### U A #### [address] Prealbuminon 08-05-2021 Prealbumin [Mass/Vol] 7.8 mg/dL Low 18.0-38.0 [facility] Comment on above: Order Comment: Name Collection Type:: Clean-Voided Midstream Result Comment: PERF ORMED BY: [place] [address] PATHOLOGIST STAGE RIGGER ROBYN CASAS M.D. Performed By: #### U A #### [address] Basic Metabolic Panelon 07-24 Calcium [Mass/Vol] 8.8 mg/dL Normal 8.2-10.2 [facility] Comment on above: Performed By: #### U A #### [place] [address] [place] Chloride [Moles/Vol] 112 mmol/L Normal 95-114 [facility] Comment on above: Performed By: #### U A #### [address] CO2 [Moles/Vol] 20.1 mmol/L Low 22.0-30.0 [facility] Comment on above: Performed By: #### U A #### [address] Creatinine [Mass/Vol] 0.76 mg/dL Normal 0.44-1.03 [facility] Comment on above: Performed By: #### U A #### [place] [address] [place] Creatinine Clr Calc Pharmacy 71.76 [facility] Comment on above: Result Comment: PERF ORMED BY: [place] [address] PATHOLOGIST STAGE RIGGER ROBYN CASAS M.D. Performed By: #### U A #### [address] Estimated GFR ( Joey > 60 [facility] Comment on above: Result Comment: GFR estimated reference range: According to KDOQI guidelines, <60 ml/min/1.73m2 is sufficient to diagnose a patient with chronic kidney disease. Performed By: #### U A #### [address] Estimated GFR (Non- Am > 60 [facility] Comment on above: Performed By: #### U A #### [address] Glucose [Mass/Vol] 81 mg/dL Normal 70-100 [facility] Comment on above: Result Comment: [place] Glucose Reference Range is dependent on time and content of last meal. Glucose of more than 200 mg/dL in a nonstressed, ambulatory subject supports the diagnosis of Diabetes Mellitus. ADA recommended reference range Performed By: #### U A #### [address] Potassium [Moles/Vol] 3.2 mmol/L Low 3.5-5.1 [facility] Comment on above: Performed By: #### U A #### [place] [address] [place] Sodium [Moles/Vol] 146 mmol/L Normal 136-146 [facility] Comment on above: Performed By: #### U A #### [address] Urea nitrogen [Mass/Vol] 7 mg/dL Low 06-15 [facility] Comment on above: Performed By: #### U A #### [address] Complete Blood Count Auto Di ffon 08-04-2021 Basophils (Bld) [#/Vol] 0.0 10*3/uL Normal 0.0-0.2 [facility] Comment on above: Result Comment: PERF ORMED BY: [place] [address] PATHOLOGIST STAGE RIGGER ROBYN CASAS M.D. Performed By: #### U A #### [address] Basophils/100 WBC (Bld) 0.2 % Normal . [facility] Comment on above: Performed By: #### U A #### [address] Eosinophils (Bld) [#/Vol] 0.0 10*3/uL Normal 0.0-0.45 [facility] Comment on above: Performed By: #### U A #### [address] Eosinophils/100 WBC (Bld) 0.5 % Normal . [facility] Comment on above: Performed By: #### U A #### [address] Erythrocyte distribution width (RBC) [Ratio] 14.3 % Normal 11.9-15.3 [facility] Comment on above: Performed By: #### U A #### [address] Hematocrit (Bld) [Volume fraction] 40.2 % Normal 34.0-46.4 [facility] Comment on above: Performed By: #### U A #### [address] [place] [address] [place] Hemoglobin (Bld) [Mass/Vol] 13.1 g/dL Normal 11.8-15.4 [facility] Comment on above: Performed By: #### U A #### [address] Lymphocytes (Bld) [#/Vol] 0.8 10*3/uL Low 1.00-4.8 [facility] Comment on above: Performed By: #### U A #### [address] Lymphocytes/100 WBC (Bld) 13.1 % Normal . [facility] Comment on above: Performed By: #### U A #### [address] MCH (RBC) [Entitic mass] 31.5 pg Normal 24.7-34.3 [facility] Comment on above: Performed By: #### U A #### [address] MCV (RBC) [Entitic vol] 96.6 fL Normal 80-100 [facility] Comment on above: Performed By: #### U A #### [address] Mean Corpuscular HGB Conc 32.6 g/dL Normal 32.0-35.0 [facility] Comment on above: Performed By: #### U A #### [address] Monocytes (Bld) [#/Vol] 1.0 10*3/uL High 0.0-0.8 [facility] Comment on above: Performed By: #### U A #### [address] Monocytes/100 WBC (Bld) 16.4 % Normal . [facility] Comment on above: Performed By: #### U A #### [address] Neutrophils (Bld) [#/Vol] 4.2 10*3/uL Normal 1.8-7.7 [facility] Comment on above: Performed By: #### U A #### [facility] [address] Neutrophils/100 WBC (Bld) 69.8 % Normal . [facility] Comment on above: Performed By: #### U A #### [facility] [address] [place] [address] [place] Nucleated RBC/100 WBC (Bld) [Ratio] 0.0 % Normal 0-0.5 [facility] Comment on above: Performed By: #### U A #### [facility] [address] Platelet mean volume (Bld) [Entitic vol] 8.1 fL Normal 6.3-10.7 [facility] Comment on above: Performed By: #### U A #### [facility] [address] [place] [address] [place] Platelets (Bld) [#/Vol] 196 10*3/uL Normal 150-450 [facility] Comment on above: Performed By: #### U A #### [facility] [address] [place] [address] [place] RBC (Bld) [#/Vol] 4.16 10*6/uL Normal 3.60-5.00 [facility] Comment on above: Performed By: #### U A #### [facility] [address] [place] [address] [place] WBC (Bld) [#/Vol] 6.0 10*3/uL Normal 4.5-11.0 [facility] Comment on above: Performed By: #### U A #### [facility] [address] [place] [address] [place] XR KUBon 08-04-2021 XR KUB [facility] [place] [address] [place] [address] XRay Report Signed Patient: Areli Hawkins MR#: [id number] : 1945 Acct:[id number] Age/Sex: 75 / F ADM Date: 08/01/21 Loc: 3S Room: 1D2322-7 Type: ADM IN Attending Dr: Indio Puga [...] Allan Salinas M.D.08/04/2021 8:32 AM Dictation Location: [place] [address] Transcribed By: [facility] 08/04/21831 Dictated By: Allan Salinas DO 08/04/21 0829 Signed By: 08/04/21 0832 [facility] XR chest 1V portableon 08-04 XR chest 1V portable [facility] [place] [address] [place] [address] XRay Report Signed Patient: Areli Hawkins MR#: [id number] : 1945 Acct:[id number] Age/Sex: 75 / F ADM Date: 08/01/21 Loc: 4N Room: 2D7451-7 Type: ADM IN Attending Dr: Indio Puga [...] Lucas Jr., M.D.08/04/2021 6:52 PM Dictation Location: [place] [address] Transcribed By: [facility] 08/04/211851 Dictated By: Kvng Lucas Jr, MD 08/04/211849 Signed By: 08/04/211851 Normal [facility] Basic Metabolic Panelon 07-24 Calcium [Mass/Vol] 8.7 mg/dL Normal 8.2-10.2 [facility] Comment on above: Performed By: #### B MP, CBC ####[facility] [id number] Chloride [Moles/Vol] 109 mmol/L Normal 95-114 [facility] Comment on above: Performed By: #### B MP, CBC ####[facility] Yui[address] CO2 [Moles/Vol] 20.3 mmol/L Low 22.0-30.0 [facility] Comment on above: Performed By: #### B MP, CBC ####[facility] Dco[address] Creatinine [Mass/Vol] 0.78 mg/dL Normal 0.44-1.03 [facility] Comment on above: Performed By: #### B MP, CBC ####[facility] Tww4817 [place] [id number] [facility] Creatinine Clr Calc Pharmacy 71.76 [facility] Comment on above: Result Comment: PERF ORMED BY: [facility] [address] [place] [address] PATHOLOGIST STAGE RIGGER ROBYN CASAS M.D. Performed By: #### B MP, CBC ####[facility] Cpu5578 [place] [id number] [facility] Estimated GFR ( Joey > 60 [facility] Comment on above: Result Comment: GFR estimated reference range: According to KDOQI guidelines, <60 ml/min/1.73m2 is sufficient to diagnose a patient with chronic kidney disease. Performed By: #### B MP, CBC ####[place] [address] [place] [id number] [facility] Estimated GFR (Non- Am > 60 Normal [facility] Comment on above: Performed By: #### B MP, CBC ####[place] [address] [place] [id number] [facility] Glucose [Mass/Vol] 101 mg/dL High 70-100 [facility] Comment on above: Result Comment: [place] Glucose Reference Range is dependent on time and content of last meal. Glucose of more than 200 mg/dL in a nonstressed, ambulatory subject supports the diagnosis of Diabetes Mellitus. ADA recommended reference range Performed By: #### B MP, CBC ####[place] [id number] [facility] Potassium [Moles/Vol] 3.8 mmol/L Normal 3.5-5.1 [facility] Comment on above: Performed By: #### B MP, CBC ####[place] [id number] [facility] Sodium [Moles/Vol] 143 mmol/L Normal 136-146 [facility] Comment on above: Performed By: #### B MP, CBC ####[place] [id number] [facility] Urea nitrogen [Mass/Vol] 6 mg/dL Low 9-23 [facility] Comment on above: Performed By: #### B MP, CBC ####[place] [id number] [facility] Complete Blood Count Auto Di ffon 08-03-2021 Basophils (Bld) [#/Vol] 0.0 10*3/uL Normal 0.0-0.2 [facility] Comment on above: Result Comment: PERF ORMED BY: [facility] [address] [place] [address] PATHOLOGIST STAGE RIGGER ROBYN CASAS M.D. Performed By: #### B MP, CBC ####[place] [id number] [facility] Basophils/100 WBC (Bld) 0.2 % Normal . [facility] Comment on above: Performed By: #### B MP, CBC ####[place] [id number] [facility] Eosinophils (Bld) [#/Vol] 0.0 10*3/uL Normal 0.0-0.45 [facility] Comment on above: Performed By: #### B MP, CBC ####[place] [id number] [facility] Eosinophils/100 WBC (Bld) 0.2 % Normal . [facility] Comment on above: Performed By: #### B MP, CBC ####[address] Erythrocyte distribution width (RBC) [Ratio] 14.4 % Normal 11.9-15.3 [facility] Comment on above: Performed By: #### B MP, CBC ####[address] Hematocrit (Bld) [Volume fraction] 39.7 % Normal 34.0-46.4 [facility] Comment on above: Performed By: #### B MP, CBC ####[address] Hemoglobin (Bld) [Mass/Vol] 13.2 g/dL Normal 11.8-15.4 [facility] Comment on above: Performed By: #### B MP, CBC ####[place] [id number] [facility] Lymphocytes (Bld) [#/Vol] 0.7 10*3/uL Low 1.00-4.8 [facility] Comment on above: Performed By: #### B MP, CBC ####[place] [id number] [facility] Lymphocytes/100 WBC (Bld) 7.0 % Normal . [facility] Comment on above: Performed By: #### B MP, CBC ####[address] MCH (RBC) [Entitic mass] 31.6 pg Normal 24.7-34.3 [facility] Comment on above: Performed By: #### B MP, CBC ####[address] MCV (RBC) [Entitic vol] 95.5 fL Normal 80-100 [facility] Comment on above: Performed By: #### B MP, CBC ####[address] Mean Corpuscular HGB Conc 33.1 g/dL Normal 32.0-35.0 [facility] Comment on above: Performed By: #### B MP, CBC ####[address] Monocytes (Bld) [#/Vol] 1.2 10*3/uL High 0.0-0.8 [facility] Comment on above: Performed By: #### B MP, CBC ####[address] Monocytes/100 WBC (Bld) 12.3 % Normal . [facility] Comment on above: Performed By: #### B MP, CBC ####[address] Neutrophils (Bld) [#/Vol] 8.1 10*3/uL High 1.8-7.7 [facility] Comment on above: Performed By: #### B MP, CBC ####[address] Neutrophils/100 WBC (Bld) 80.3 % Normal . [facility] Comment on above: Performed By: #### B MP, CBC ####[address] Nucleated RBC/100 WBC (Bld) [Ratio] 0.0 % Normal 0-0.5 [facility] Comment on above: Performed By: #### B MP, CBC ####[place] [address] Platelet mean volume (Bld) [Entitic vol] 7.8 fL Normal 6.3-10.7 [facility] Comment on above: Performed By: #### B MP, CBC ####[place] [address] Platelets (Bld) [#/Vol] 210 10*3/uL Normal 150-450 [facility] Comment on above: Performed By: #### B MP, CBC ####[address] RBC (Bld) [#/Vol] 4.16 10*6/uL Normal 3.60-5.00 [facility] Comment on above: Performed By: #### B MP, CBC ####[address] WBC (Bld) [#/Vol] 10.1 10*3/uL Normal 4.5-11.0 [facility] Comment on above: Performed By: #### B MP, CBC ####[address] XR abdomen min 2Von 08-03-20 21 XR abdomen min 2V [facility] [place] [address] [place] [address] XRay Report Signed Patient: Areli Hawkins MR#: [id number] : 1945 Acct:[id number] Age/Sex: 75 / F ADM Date: 08/01/21 Loc: Room: [address] [place] [address] Type: ADM IN Attending Dr: Indio Puga [...] Harsh Pickett M.D.08/03/2021 8:21 AM Dictation Location: [place] [address] Transcribed By: [facility] 08/03/21820 Dictated By: Harsh Pickett MD 08/03/21814 Signed By: 08/03/21820 [facility] Basic Metabolic Panelon 07-24 Calcium [Mass/Vol] 8.9 mg/dL Normal 8.2-10.2 [facility] Comment on above: Performed By: #### Michael Mendez, BMP ####[place] [id number] [facility] Chloride [Moles/Vol] 109 mmol/L Normal 95-114 [facility] Comment on above: Performed By: #### Michael Mendez, BMP ####[address] [address] [facility] CO2 [Moles/Vol] 19.9 mmol/L Low 22.0-30.0 [facility] Comment on above: Performed By: #### Michael Mendez, BMP ####[address] [address] [facility] Creatinine [Mass/Vol] 0.70 mg/dL Normal 0.44-1.03 [facility] Comment on above: Performed By: #### Michael Mendez, BMP ####[place] [address] [place] [address] [place] Creatinine Clr Calc Pharmacy 71.76 [facility] Comment on above: Performed By: #### [place] Mendez, BMP ####[place] [address] [place] [address] [facility] Estimated GFR ( Joey > 60 [facility] Comment on above: Result Comment: GFR estimated reference range: According to KDOQI guidelines, <60 ml/min/1.73m2 is sufficient to diagnose a patient with chronic kidney disease. Performed By: #### Michael Mendez, BMP ####[place] [id number] [facility] Estimated GFR (Non- Am > 60 Normal [facility] Comment on above: Performed By: #### [place] Mendez, BMP ####[place] [id number] [facility] Glucose [Mass/Vol] 99 mg/dL Normal 70-100 [facility] Comment on above: Result Comment: [place] Glucose Reference Range is dependent on time and content of last meal. Glucose of more than 200 mg/dL in a nonstressed, ambulatory subject supports the diagnosis of Diabetes Mellitus. ADA recommended reference range Performed By: #### [place] Mendez, BMP ####[place] [id number] [facility] Potassium [Moles/Vol] 3.4 mmol/L Low 3.5-5.1 [facility] Comment on above: Performed By: #### [place] Mendez, BMP ####[place] [id number] [facility] Sodium [Moles/Vol] 141 mmol/L Normal 136-146 [facility] Comment on above: Performed By: #### [place] Mendez, BMP ####[place] [id number] [facility] Urea nitrogen [Mass/Vol] 5 mg/dL Low 9-23 [facility] Comment on above: Performed By: #### Michael , BMP ####[place] [id number] [facility] Complete Blood Count Auto Di ffon 08-02-2021 Basophils (Bld) [#/Vol] 0.0 10*3/uL Normal 0.0-0.2 [facility] Comment on above: Order Comment: Speci men clotted. Redraw requested. Notified Shannen HENAO. Will notify Juwan Gu RN. Result Comment: PERF ORMED BY: [facility] [address] [place] [address] PATHOLOGIST STAGE RIGGER ROBYN CASAS M.D. Performed By: #### C BC ####[address] Basophils/100 WBC (Bld) 0.1 % Normal . [facility] Comment on above: Order Comment: Speci men clotted. Redraw requested. Notified Shannen HENAO. Will notify Juwan Gu RN. Performed By: #### C BC ####[address] Eosinophils (Bld) [#/Vol] 0.0 10*3/uL Normal 0.0-0.45 [facility] Comment on above: Order Comment: Speci men clotted. Redraw requested. Notified Shannen HENAO. Will notify Juwan Gu RN. Performed By: #### C BC ####[address] Eosinophils/100 WBC (Bld) 0.3 % Normal . [facility] Comment on above: Order Comment: Speci men clotted. Redraw requested. Notified Shannen HENAO. Will notify Juwan Gu RN. Performed By: #### C BC ####[address] Erythrocyte distribution width (RBC) [Ratio] 14.2 % Normal 11.9-15.3 [facility] Comment on above: Order Comment: Speci men clotted. Redraw requested. Notified Shannen HENAO. Will notify Juwan Gu RN. Performed By: #### C BC ####[address] Hematocrit (Bld) [Volume fraction] 39.5 % Normal 34.0-46.4 [facility] Comment on above: Order Comment: Speci men clotted. Redraw requested. Notified Shannen TRIPLETT Will notify Juwan Gu RN. Performed By: #### C BC ####[place] [id number] [facility] Hemoglobin (Bld) [Mass/Vol] 13.0 g/dL Normal 11.8-15.4 [facility] Comment on above: Order Comment: Speci men clotted. Redraw requested. Notified Shannen HENAO. Will notify Juwan Gu RN. Performed By: #### C BC ####[address] Lymphocytes (Bld) [#/Vol] 0.8 10*3/uL Low 1.00-4.8 [facility] Comment on above: Order Comment: Speci men clotted. Redraw requested. Notified Shannen HENAO. Will notify Juwan Gu RN. Performed By: #### C BC ####[address] Lymphocytes/100 WBC (Bld) 7.0 % Normal . [facility] Comment on above: Order Comment: Speci men clotted. Redraw requested. Notified Shannen HENAO. Will notify Juwan Gu RN. Performed By: #### C BC ####[address] MCH (RBC) [Entitic mass] 31.3 pg Normal 24.7-34.3 [facility] Comment on above: Order Comment: Speci men clotted. Redraw requested. Notified Shannen HENAO. Will notify Juwan Gu RN. Performed By: #### C BC ####[address] MCV (RBC) [Entitic vol] 95.4 fL Normal 80-100 [facility] Comment on above: Order Comment: Speci men clotted. Redraw requested. Notified Shannen HENAO. Will notify Juwan Gu RN. Performed By: #### C BC ####[address] Mean Corpuscular HGB Conc 32.9 g/dL Normal 32.0-35.0 [facility] Comment on above: Order Comment: Speci men clotted. Redraw requested. Notified Shannen HENAO. Will notify Juwan Gu RN. Performed By: #### C BC ####[address] Monocytes (Bld) [#/Vol] 0.9 10*3/uL High 0.0-0.8 [facility] Comment on above: Order Comment: Speci men clotted. Redraw requested. Notified Shannen HENAO. Will notify Juwan Gu RN. Performed By: #### C BC ####[address] Monocytes/100 WBC (Bld) 7.7 % Normal . [facility] Comment on above: Order Comment: Speci men clotted. Redraw requested. Notified Shannen HENAO. Will notify Juwan Gu RN. Performed By: #### C BC ####[address] Neutrophils (Bld) [#/Vol] 9.5 10*3/uL High 1.8-7.7 [facility] Comment on above: Order Comment: Speci men clotted. Redraw requested. Notified Shannen HENAO. Will notify Juwan Gu RN. Performed By: #### C BC ####[address] Neutrophils/100 WBC (Bld) 84.9 % Normal . [facility] Comment on above: Order Comment: Speci men clotted. Redraw requested. Notified Shannen HENAO. Will notify Juwan Gu RN. Performed By: #### C BC ####[address] Nucleated RBC/100 WBC (Bld) [Ratio] 0.0 % Normal 0-0.5 [facility] Comment on above: Order Comment: Speci men clotted. Redraw requested. Notified Shannen RIEDY. Will notify Juwan Gu RN. Performed By: #### C BC ####[address] Platelet mean volume (Bld) [Entitic vol] 8.2 fL Normal 6.3-10.7 [facility] Comment on above: Order Comment: Speci men clotted. Redraw requested. Notified Shannen HENAO. Will notify Juwan Gu RN. Performed By: #### C BC ####[address] Platelets (Bld) [#/Vol] 193 10*3/uL Normal 150-450 [facility] Comment on above: Order Comment: Speci men clotted. Redraw requested. Notified Shannen HENAO. Will notify Juwan Gu RN. Performed By: #### C BC ####[address] RBC (Bld) [#/Vol] 4.14 10*6/uL Normal 3.60-5.00 [facility] Comment on above: Order Comment: Speci men clotted. Redraw requested. Notified Shannen HENAO. Will notify Juwan Gu RN. Performed By: #### C BC ####[address] WBC (Bld) [#/Vol] 11.2 10*3/uL High 4.5-11.0 [facility] Comment on above: Order Comment: Speci men clotted. Redraw requested. Notified Shannen HENAO. Will notify Juwan Gu RN. Performed By: #### C BC ####[address] Magnesiumon 08-02-2021 Magnesium [Mass/Vol] 1.8 mg/dL Normal 1.6-2.6 [facility] Comment on above: Result Comment: PERF ORMED BY: [facility] [address] [place] [address] PATHOLOGIST STAGE RIGGER ROBYN CASAS M.D. Performed By: #### M G, BMP ####[facility] [id number] XR KUBon 08-02-2021 XR KUB [facility] [place] [address] [place] [address] XRay Report Signed Patient: Areli Hawkins MR#: [id number] : 1945 Acct:[id number] Age/Sex: 75 / F ADM Date: 08/01/21 Loc: Room: [address] [place] [address] Type: ADM IN Attending Dr: Indio Puga [...] Allan Salinas M.D.08/02/2021 8:28 AM Dictation Location: [place] [address] Transcribed By: [facility] 08/02/21827 Dictated By: Allan Salinas DO 08/02/21809 Signed By: 08/02/21827 [facility] COVID-19 Antigenon 1 COVID-19 Antigen [...] its performance Heaven Disclaimer characteristic determined by [employer] and Heaven Disclaimer validated at [facility]. This Heaven Disclaimer test has not [...] detection of SARS-CoV-2 virus and/or diagnosis of Haeven Disclaimer COVID-19 infection under section 564(b)(1) of the Heaven Disclaimer Act, 21 U.S.C. 360bbb-3(b)(1), unless the Heaven Disclaimer authorization is terminated or revoked sooner. PERFORMED BY: [place] [address] PATHOLOGIST STAGE RIGGER ROBYN CASAS M.D. Normal [facility] Comment on above: Performed By: #### S OFIANEG, COVID-19 HEAVEN #### [address] [address] [facility] COVID-19 [facility] 08-01-2021 SARS-CoV-2 (COVID-19) RNA CHETAN+probe Ql (Unsp spec) Negative Normal Negative [facility] Comment on above: Order Comment: Healt hcare Worker?: N Result Comment: Testing for SARS-CoV-2 by RT-PCR This test was developed and its performance characteristics determined by [employer], [employer] ([employer]) and validated at the [facility]. This test has not been FDA [...] is terminated or revoked sooner. PERFORMED BY: [address] [address] PATHOLOGIST STAGE RIGGER ROBYN CASAS M.D. Performed By: #### C OVID 19 [facility] ####[facility] [address] [place] [address] [facility] [address] abdomen pelvis wo conon 1 10-01-2020 CT abdomen pelvis wo con [facility] [place] [address] [place] [id number] Scan Report Signed Patient: Areli Hawkins MR#: [id number] : 1945 Acct:[id number] Age/Sex: 75 / F ADM Date: 08/01/21 Loc: Room: 1L9692-2 Type: ADM IN Attending Dr: Indio Puga [...] Allan Salinas M.D.08/01/2021 9:44 AM Dictation Location: [place] [address] Transcribed By: [facility] 08/01/21943 Dictated By: Allan Salinas DO 08/01/21937 Signed By: 08/01/21943 Normal [facility] Complete Blood Count Auto Di ffon 08-01-2021 Basophils (Bld) [#/Vol] 0.0 10*3/uL Normal 0.0-0.2 [facility] Comment on above: Result Comment: PERF ORMED BY: [place] [address] PATHOLOGIST STAGE RIGGER ROBYN CASAS M.D. Performed By: #### C BC, LIPASE, LACTIC, CMP #### [address] Basophils/100 WBC (Bld) 0.4 % Normal . [facility] Comment on above: Performed By: #### C BC, LIPASE, LACTIC, CMP #### [address] Eosinophils (Bld) [#/Vol] 0.1 10*3/uL Normal 0.0-0.45 [facility] Comment on above: Performed By: #### C BC, LIPASE, LACTIC, CMP #### [address] Eosinophils/100 WBC (Bld) 0.8 % Normal . [facility] Comment on above: Performed By: #### C BC, LIPASE, LACTIC, CMP #### [address] Erythrocyte distribution width (RBC) [Ratio] 14.0 % Normal 11.9-15.3 [facility] Comment on above: Performed By: #### C BC, LIPASE, LACTIC, CMP #### [address] Hematocrit (Bld) [Volume fraction] 39.8 % Normal 34.0-46.4 [facility] Comment on above: Performed By: #### C BC, LIPASE, LACTIC, CMP #### [address] Hemoglobin (Bld) [Mass/Vol] 13.3 g/dL Normal 11.8-15.4 [facility] Comment on above: Performed By: #### C BC, LIPASE, LACTIC, CMP #### [address] Lymphocytes (Bld) [#/Vol] 1.0 10*3/uL Normal 1.00-4.8 [facility] Comment on above: Performed By: #### C BC, LIPASE, LACTIC, CMP #### [address] Lymphocytes/100 WBC (Bld) 10.9 % Normal . [facility] Comment on above: Performed By: #### C BC, LIPASE, LACTIC, CMP #### [address] MCH (RBC) [Entitic mass] 31.3 pg Normal 24.7-34.3 [facility] Comment on above: Performed By: #### C BC, LIPASE, LACTIC, CMP #### [address] MCV (RBC) [Entitic vol] 93.7 fL Normal 80-100 [facility] Comment on above: Performed By: #### C BC, LIPASE, LACTIC, CMP #### [address] Mean Corpuscular HGB Conc 33.4 g/dL Normal 32.0-35.0 [facility] Comment on above: Performed By: #### C BC, LIPASE, LACTIC, CMP #### [address] Monocytes (Bld) [#/Vol] 0.9 10*3/uL High 0.0-0.8 [facility] Comment on above: Performed By: #### C BC, LIPASE, LACTIC, CMP #### [facility] [address] [place] [address] [place] Monocytes/100 WBC (Bld) 9.5 % Normal . [facility] Comment on above: Performed By: #### C BC, LIPASE, LACTIC, CMP #### [facility] [address] Neutrophils (Bld) [#/Vol] 7.4 10*3/uL Normal 1.8-7.7 [facility] Comment on above: Performed By: #### C BC, LIPASE, LACTIC, CMP #### [address] Neutrophils/100 WBC (Bld) 78.4 % Normal . [facility] Comment on above: Performed By: #### C BC, LIPASE, LACTIC, CMP #### [place] [address] [place] Nucleated RBC/100 WBC (Bld) [Ratio] 0.1 % Normal 0-0.5 [facility] Comment on above: Performed By: #### C BC, LIPASE, LACTIC, CMP #### [address] Platelet mean volume (Bld) [Entitic vol] 8.5 fL Normal 6.3-10.7 [facility] Comment on above: Performed By: #### C BC, LIPASE, LACTIC, CMP #### [facility] [address] [place] [address] [place] Platelets (Bld) [#/Vol] 194 10*3/uL Normal 150-450 [facility] Comment on above: Performed By: #### C BC, LIPASE, LACTIC, CMP #### [place] [address] [place] RBC (Bld) [#/Vol] 4.25 10*6/uL Normal 3.60-5.00 [facility] Comment on above: Performed By: #### C BC, LIPASE, LACTIC, CMP #### [place] [address] [place] WBC (Bld) [#/Vol] 9.5 10*3/uL Normal 4.5-11.0 [facility] Comment on above: Performed By: #### C BC, LIPASE, LACTIC, CMP #### [facility] [address] [place] [address] Comprehensive Metabolic Pane lizy 08-01-2021 Albumin [Mass/Vol] 3.5 g/dL Normal 3.2-5.5 [facility] Comment on above: Performed By: #### C BC, LIPASE, LACTIC, CMP #### [address] Albumin/Globulin [Mass ratio] 1.3 {ratio} Normal [facility] Comment on above: Performed By: #### C BC, LIPASE, LACTIC, CMP #### [address] ALP [Catalytic activity/Vol] 54 U/L Normal 32-92 [facility] Comment on above: Performed By: #### C BC, LIPASE, LACTIC, CMP #### [address] ALT [Catalytic activity/Vol] 16 U/L Normal 10-60 [facility] Comment on above: Performed By: #### C BC, LIPASE, LACTIC, CMP #### [address] AST [Catalytic activity/Vol] 30 U/L Normal 10-42 [facility] Comment on above: Performed By: #### C BC, LIPASE, LACTIC, CMP #### [address] Bilirubin [Mass/Vol] 0.7 mg/dL Normal 0.3-1.2 [facility] Comment on above: Performed By: #### C BC, LIPASE, LACTIC, CMP #### [address] Calcium [Mass/Vol] 9.1 mg/dL Normal 8.2-10.2 [facility] Comment on above: Performed By: #### C BC, LIPASE, LACTIC, CMP #### [facility] [address] Chloride [Moles/Vol] 106 mmol/L Normal 95-114 [facility] Comment on above: Performed By: #### C BC, LIPASE, LACTIC, CMP #### [facility] [address] CO2 [Moles/Vol] 21.0 mmol/L Low 22.0-30.0 [facility] Comment on above: Performed By: #### C BC, LIPASE, LACTIC, CMP #### [facility] [address] Creatinine [Mass/Vol] 0.77 mg/dL Normal 0.44-1.03 [facility] Comment on above: Performed By: #### C BC, LIPASE, LACTIC, CMP #### [facility] [address] [place] [address] [place] Creatinine Clr Calc Pharmacy 71.76 [facility] Comment on above: Performed By: #### C BC, LIPASE, LACTIC, CMP #### [facility] [address] Estimated GFR ( Joey > 60 [facility] Comment on above: Result Comment: GFR estimated reference range: According to KDOQI guidelines, <60 ml/min/1.73m2 is sufficient to diagnose a patient with chronic kidney disease. Performed By: #### C BC, LIPASE, LACTIC, CMP #### [facility] [address] Estimated GFR (Non- Am > 60 [facility] Comment on above: Performed By: #### C BC, LIPASE, LACTIC, CMP #### [facility] [address] [place] [address] [place] Globulin (S) [Mass/Vol] 2.6 g/dL [facility] Comment on above: Performed By: #### C BC, LIPASE, LACTIC, CMP #### [facility] [address] Glucose [Mass/Vol] 106 mg/dL High 70-100 [facility] Comment on above: Result Comment: [place] Glucose Reference Range is dependent on time and content of last meal. Glucose of more than 200 mg/dL in a nonstressed, ambulatory subject supports the diagnosis of Diabetes Mellitus. ADA recommended reference range Performed By: #### C BC, LIPASE, LACTIC, CMP #### [facility] [address] Potassium [Moles/Vol] 3.2 mmol/L Low 3.5-5.1 [facility] Comment on above: Performed By: #### C BC, LIPASE, LACTIC, CMP #### [facility] [address] Protein [Mass/Vol] 6.1 g/dL Normal 6.1-7.9 [facility] Comment on above: Performed By: #### C BC, LIPASE, LACTIC, CMP #### [facility] [address] Sodium [Moles/Vol] 139 mmol/L Normal 136-146 [facility] Comment on above: Performed By: #### C BC, LIPASE, LACTIC, CMP #### [facility] [address] Urea nitrogen [Mass/Vol] 7 mg/dL Low 9-23 [facility] Comment on above: Performed By: #### C BC, LIPASE, LACTIC, CMP #### [facility] [address] Consultation Noteon 08-01-20 Consultation Note [id number] D:127 Normal [facility] ECG 12 lead ECGon 08-01-2021 ECG 12 lead ECG [facility] Main [place] [address] [place] [address] Electrocardiograph Report Signed Patient: Areli Hawkins MR#: [id number] : 1945 Acct:[id number] Age/Sex: 75 / F ADM Date: 08/01/21 Loc: ER Room: Type: [facility] ER Attending Dr: Ordering Provider: Matt Martinez [...] ECGs available Confirmed by MATT MARTINEZ MD ([id number]) on 08/01/2021 5:35:09 AM Referred By: Electronically Signed By:MATT MARTINEZ MD Transcribed By: MUS Signed By Matt Martinez Jr, MD 0535 Normal [facility] Lactic Acidon 08-01-2021 Lactate [Moles/Vol] 1.5 mmol/L Normal 0.5-2.2 [facility] Comment on above: Result Comment: PERF ORMED BY: [place] [address] PATHOLOGIST STAGE RIGGER ROBYN CASAS M.D. Performed By: #### C BC, LIPASE, LACTIC, CMP #### [facility] [address] [place] [address] Lipaseon 08-01-2021 Lipase [Catalytic activity/Vol] 28.0 U/L Normal 22-51 [facility] Comment on above: Result Comment: PERF ORMED BY: [place] [phone] PATHOLOGIST STAGE RIGGER ROBYN CASAS M.D. Performed By: #### C BC, LIPASE, LACTIC, CMP #### [facility] [address] [place] [address] RAD - MISCon 08-01-2021 RAD - MISC [id number] [facility] [id number] D:127 Normal [facility] Heaven Ag Negativeon 08-01-20 Heaven Ag Negative Negative Normal Negative [facility] Comment on above: Result Comment: This is a duplicate Heaven SARS Antigen (ALEKS) result to be used for statistical tracking purpose only. PERFORMED BY: [place] [address] PATHOLOGIST STAGE RIGGER ROBYN CASAS M.D. Performed By: #### S CAHPIS MEIER-Denys REYNOLDSIA #### [place] [address] [place] Urinalysison 08-01-2021 Appearance (U) Clear Normal Clear [facility] Comment on above: Order Comment: Name Collection Type:: Clean-Voided Midstream Performed By: #### U A #### [place] [address] [place] Bilirubin,Urine Negative Normal Negative [facility] Comment on above: Order Comment: Name Collection Type:: Clean-Voided Midstream Performed By: #### U A #### [address] Color (U) Yellow Normal Yellow [facility] Comment on above: Order Comment: Name Collection Type:: Clean-Voided Midstream Performed By: #### U A #### [place] [address] [place] Glucose Ql (U) Normal Normal Normal [facility] Comment on above: Order Comment: Name Collection Type:: Clean-Voided Midstream Performed By: #### U A #### [place] [address] [place] Ketones Ql (U) Negative Normal Negative [facility] Comment on above: Order Comment: Name Collection Type:: Clean-Voided Midstream Performed By: #### U A #### [place] [address] [place] Leukocyte esterase Test strip Ql (U) Negative Normal Negative [facility] Comment on above: Order Comment: Name Collection Type:: Clean-Voided Midstream Performed By: #### U A #### [place] [address] [place] Nitrite,Urine Negative Normal Negative [facility] Comment on above: Order Comment: Name Collection Type:: Clean-Voided Midstream Performed By: #### U A #### [place] [id number] [place] Occult Blood,Urine Negative Normal Negative [facility] Comment on above: Order Comment: Name Collection Type:: Clean-Voided Midstream Result Comment: PERF ORMED BY: [place] [address] PATHOLOGIST STAGE RIGGER ROBYN CASAS M.D. Performed By: #### U A #### [facility] [address] [place] [address] pH (U) 5.5 [pH] Normal 5.0-9.0 [facility] Comment on above: Order Comment: Name Collection Type:: Clean-Voided Midstream Performed By: #### U A #### [address] Protein,Urine Negative Normal Negative [facility] Comment on above: Order Comment: Name Collection Type:: Clean-Voided Midstream Performed By: #### U A #### [address] Specificy [place],Urine 1.011 Normal 1.001-1.030 [facility] Comment on above: Order Comment: Name Collection Type:: Clean-Voided Midstream Performed By: #### U A #### [address] Urobilinogen,Urine Normal Normal Normal [facility] Comment on above: Order Comment: Name Collection Type:: Clean-Voided Midstream Performed By: #### U A #### [address] XR abdomen 1Von 08-01-2021 XR abdomen 1V [facility] [place] [address] [place] [address] XRay Report Signed Patient: Areli Hawkins MR#: [id number] : 1945 Acct:[id number] Age/Sex: 75 / F ADM Date: 08/01/21 Loc: Room: [address] [place] [address] Type: ADM IN Attending Dr: Indio Puga [...] Harsh Pickett M.D.08/01/2021 8:52 AM Dictation Location: [place] [address] Transcribed By: [facility] 08/01/21851 Dictated By: Harsh Pickett MD 08/01/2150 Signed By: 08/01/21851 [facility] CBC AUTO DIFFon 07-31-2021 BASO # 0.0 103/ul Normal 0.0-0.1 [facility] Comment on above: Performed By: #### C BC #### [facility] [address] [place] [address] Dr. Millie Flores Basophils/100 WBC (Bld) 0.4 % Normal 0.2-2.0 [facility] Comment on above: Performed By: #### C BC #### [facility] [address] [place] [address] Dr. Millie Flores EO # 0.2 103/ul Normal 0.0-0.7 [facility] Comment on above: Performed By: #### C BC #### [facility] [address] [place] [address] Dr. Millie Flores Eosinophils/100 WBC (Bld) 2.2 % Normal 0.9-7.0 [facility] Comment on above: Performed By: #### C BC #### [facility] [address] [place] [address] Dr. Millie Flores Erythrocyte distribution width (RBC) [Ratio] 13.9 % Normal 11.0-15.0 [facility] Comment on above: Performed By: #### C BC #### [facility] [address] [place] [address] Dr. Millie Flores Hematocrit (Bld) [Volume fraction] 35.7 % Critically low 36.0-48.0 [facility] Comment on above: Performed By: #### C BC #### [facility] [address] [place] [address] Dr. Millie Flores Hemoglobin (Bld) [Mass/Vol] 11.2 g/dL Critically low 12.0-16.0 [facility] Comment on above: Performed By: #### C BC #### [facility] [address] [place] [address] Dr. Millie Flores IG # 0.04 10e3/ul Critically high 0.00-0.03 [facility] Comment on above: Performed By: #### C BC #### [facility] [address] [place] [address] Dr. Millie Flores IG % 0.5 % Normal 0.0-0.5 [facility] Comment on above: Performed By: #### C BC #### [facility] [address] [place] [address] Dr. Millie Flores LYMPH # 2.3 103/ul Normal 1.2-3.8 [facility] Comment on above: Performed By: #### C BC #### [facility] [address] [place] [address] Dr. Millie Flores Lymphocytes/100 WBC (Bld) 31.7 % Normal 20.5-60.0 [facility] Comment on above: Performed By: #### C BC #### [facility] [address] [place] [address] Dr. Millie Flores MANUAL DIFF REQ NO Normal [facility] Comment on above: Performed By: #### C BC #### [facility] [address] [place] [address] Dr. Mlilie Flores MCH (RBC) [Entitic mass] 31.0 pg Normal 26.7-34.0 [facility] Comment on above: Performed By: #### C BC #### [facility] [address] [place] [address] [address] Millie Flores MCHC (RBC) [Mass/Vol] 31.4 g/dL Normal 29.9-35.2 [facility] Comment on above: Performed By: #### C BC #### [facility] [address] [place] [address] Dr. Millie Flores MCV (RBC) [Entitic vol] 98.9 fL Normal 81.0-99.0 [facility] Comment on above: Performed By: #### C BC #### [facility] [address] [place] [address] Dr. Millie Flores MONO # 0.9 103/ul Critically high 0.3-0.8 [facility] Comment on above: Performed By: #### C BC #### [facility] [address] [place] [address] Dr. Millie Flores Monocytes/100 WBC (Bld) 12.5 % Critically high 1.7-12.0 [facility] Comment on above: Performed By: #### C BC #### [facility] [address] [place] [address] Dr. Millie Flores NEUT # 3.8 103/ul Normal 1.4-6.5 [facility] Comment on above: Performed By: #### C BC #### [facility] [address] [place] [address] Dr. Millie Flores Neutrophils/100 WBC (Bld) 52.7 % Normal 43.0-75.0 [facility] Comment on above: Performed By: #### C BC #### [facility] [address] [place] [address] Dr. Millie Flores Platelet mean volume (Bld) [Entitic vol] 10.2 fL Normal 9.5-13.5 [facility] Comment on above: Performed By: #### C BC #### [place] [facility] [address] [place] [address] Dr. Millie Flores PLT 165 103/ul Normal 150-450 [facility] Comment on above: Performed By: #### C BC #### [facility] [address] [place] [address] Dr. Millie Flores RBC 3.61 106/ul Critically low 4.20-5.40 [facility] Comment on above: Performed By: #### C BC #### [facility] [address] [place] [address] Dr. Millie Flores WBC 7.3 103/ul Normal 4.0-11.0 [facility] Comment on above: Performed By: #### C BC #### [facility] [address] [place] [address] Dr. Millie Flores CULTURE URINEon 07-31-2021 CULTURE [...] F Trimethoprim/Sulfametho xazole <=20 S F Normal [facility] Comment on above: Performed By: #### B MP #### [facility] [address] [place] [address] Dr. Millie Flores PROF CHEM 8 (BAS METB)on Anion gap [Moles/Vol] 11.5 mmol/L Normal [facility] Comment on above: Performed By: #### B MP #### [facility] [address] [place] [address] Dr. Millie Flores Calcium [Mass/Vol] 8.2 mg/dL Critically low 8.4-10.2 [facility] Comment on above: Performed By: #### B MP #### [facility] [address] [place] [address] Dr. Millie Flores Chloride [Moles/Vol] 109 mmol/L Critically high 98-107 [facility] Comment on above: Performed By: #### B MP #### [facility] [address] [address] [address] Millie Flores CO2 [Moles/Vol] 26.4 mmol/L Normal 22.0-30.0 [facility] Comment on above: Performed By: #### B MP #### [facility] [address] [address] [address] Millie Flores Creatinine [Mass/Vol] 0.69 mg/dL Normal 0.52-1.04 [facility] Comment on above: Performed By: #### B MP #### [facility] [address] [address] [address] Millie Flores EGFR-AF MACANESE >60 Normal >=60 [facility] Comment on above: Performed By: #### B MP #### [facility] [address] [address] [address] Millie Flores EGFR-NON AF MACANESE >60 Normal >=60 [facility] Comment on above: Performed By: #### B MP #### [facility] [address] [address] [address] Millie Flores Glucose [Mass/Vol] 92 mg/dL Normal 74-106 [facility] Comment on above: Performed By: #### B MP #### [facility] [address] [address] [address] Millie Flores Potassium [Moles/Vol] 3.9 mmol/L Normal 3.4-5.0 [facility] Comment on above: Performed By: #### B MP #### [facility] [address] [address] [address] Millie Flores Sodium [Moles/Vol] 143 mmol/L Normal 137-145 [facility] Comment on above: Performed By: #### B MP #### [facility] [address] [address] [address] Millie Flores Urea nitrogen [Mass/Vol] 8.0 mg/dL Normal 7.0-17.0 [facility] Comment on above: Performed By: #### B MP #### [facility] [address] [place] [address] Dr. Millie Flores Urea nitrogen/Creatinine [Mass ratio] 11.6 mg/mg Normal [facility] Comment on above: Performed By: #### B MP #### [facility] [address] [place] [address] Dr. Millie Flores CBC AUTO DIFFon 07-30-2021 BASO # 0.1 103/ul Normal 0.0-0.1 [facility] Comment on above: Performed By: #### C BC #### [facility] [address] [place] [address] Dr. Millie Flores Basophils/100 WBC (Bld) 0.4 % Normal 0.2-2.0 [facility] Comment on above: Performed By: #### C BC #### [facility] [address] [place] [address] Dr. Millie Flores EO # 0.0 103/ul Normal 0.0-0.7 [facility] Comment on above: Performed By: #### C BC #### [facility] [address] [place] [address] Dr. Millie Flores Eosinophils/100 WBC (Bld) 0.3 % Critically low 0.9-7.0 [facility] Comment on above: Performed By: #### C BC #### [facility] [address] [place] [address] Dr. Millie Flores Erythrocyte distribution width (RBC) [Ratio] 13.5 % Normal 11.0-15.0 [facility] Comment on above: Performed By: #### C BC #### [facility] [address] [place] [address] Dr. Millie Flores Hematocrit (Bld) [Volume fraction] 41.5 % Normal 36.0-48.0 [facility] Comment on above: Performed By: #### C BC #### [facility] [address] [place] [address] Dr. Millie Flores Hemoglobin (Bld) [Mass/Vol] 13.7 g/dL Normal 12.0-16.0 [facility] Comment on above: Performed By: #### C BC #### [facility] [address] [place] [address] Dr. Millie Flores IG # 0.05 10e3/ul Critically high 0.00-0.03 [facility] Comment on above: Performed By: #### C BC #### [facility] [address] [place] [address] Dr. Millie Flores IG % 0.4 % Normal 0.0-0.5 [facility] Comment on above: Performed By: #### C BC #### [facility] [address] [place] [address] Dr. Millie Flores LYMPH # 1.8 103/ul Normal 1.2-3.8 [facility] Comment on above: Performed By: #### C BC #### [facility] [address] [place] [address] Dr. Millie Flores Lymphocytes/100 WBC (Bld) 14.7 % Critically low 20.5-60.0 [facility] Comment on above: Performed By: #### C BC #### [facility] [address] [place] [address] Dr. Millie Flores MANUAL DIFF REQ NO Normal [facility] Comment on above: Performed By: #### C BC #### [facility] [address] [place] [address] Dr. Millie Flores MCH (RBC) [Entitic mass] 31.5 pg Normal 26.7-34.0 [facility] Comment on above: Performed By: #### C BC #### [facility] [address] [place] [address] Dr. Millie Flores MCHC (RBC) [Mass/Vol] 33.0 g/dL Normal 29.9-35.2 [facility] Comment on above: Performed By: #### C BC #### [facility] [address] [place] [address] Dr. Millie Flores MCV (RBC) [Entitic vol] 95.4 fL Normal 81.0-99.0 [facility] Comment on above: Performed By: #### C BC #### [facility] [address] [place] [address] Dr. Millie Flores MONO # 1.5 103/ul Critically high 0.3-0.8 [facility] Comment on above: Performed By: #### C BC #### [facility] [address] [address] [address] Millie Flores Monocytes/100 WBC (Bld) 12.7 % Critically high 1.7-12.0 [facility] Comment on above: Performed By: #### C BC #### [facility] [address] [place] [address] Dr. Millie Flores NEUT # 8.7 103/ul Critically high 1.4-6.5 [facility] Comment on above: Performed By: #### C BC #### [facility] [address] [place] [address] Dr. Millie Flores Neutrophils/100 WBC (Bld) 71.5 % Normal 43.0-75.0 [facility] Comment on above: Performed By: #### C BC #### [facility] [address] [place] [address] Dr. Millie Flores Platelet mean volume (Bld) [Entitic vol] 10.2 fL Normal 9.5-13.5 [facility] Comment on above: Performed By: #### C BC #### [facility] [address] [place] [address] Dr. Millie Flores PLT 218 103/ul Normal 150-450 [facility] Comment on above: Performed By: #### C BC #### [facility] [address] [place] [address] Dr. Millie Flores RBC 4.35 106/ul Normal 4.20-5.40 [facility] Comment on above: Performed By: #### C BC #### [facility] [address] [place] [address] Dr. Millie Flores WBC 12.1 103/ul Critically high 4.0-11.0 [facility] Comment on above: Performed By: #### C BC #### [facility] [address] [place] [address] Dr. Millie Flores PROF CHEM 8 (BAS METB)on Anion gap [Moles/Vol] 13.9 mmol/L Normal [facility] Comment on above: Performed By: #### C BC #### [facility] [address] [address] [address] Millie Flores Calcium [Mass/Vol] 8.8 mg/dL Normal 8.4-10.2 [facility] Comment on above: Performed By: #### C BC #### [facility] [address] [address] [address] Millie Flores Chloride [Moles/Vol] 105 mmol/L Normal 98-107 [facility] Comment on above: Performed By: #### C BC #### [facility] [address] [place] [address] Dr. Millie Flores CO2 [Moles/Vol] 25.7 mmol/L Normal 22.0-30.0 [facility] Comment on above: Performed By: #### C BC #### [facility] [address] [place] [address] Dr. Millie Flores Creatinine [Mass/Vol] 0.73 mg/dL Normal 0.52-1.04 [facility] Comment on above: Performed By: #### C BC #### [facility] [address] [place] [address] Dr. Millie Flores EGFR-AF MACANESE >60 Normal >=60 [facility] Comment on above: Performed By: #### C BC #### [facility] [address] [place] [address] Dr. Millie Flores EGFR-NON AF MACANESE >60 Normal >=60 [facility] Comment on above: Performed By: #### C BC #### [facility] [address] [address] [address] Millie Flores Glucose [Mass/Vol] 120 mg/dL Critically high 74-106 [facility] Comment on above: Performed By: #### C BC #### [facility] [address] [place] [address] Dr. Millie Flores Potassium [Moles/Vol] 3.6 mmol/L Normal 3.4-5.0 [facility] Comment on above: Performed By: #### C BC #### [facility] [address] [address] [address] Millie Flores Sodium [Moles/Vol] 141 mmol/L Normal 137-145 [facility] Comment on above: Performed By: #### C BC #### [facility] [address] [address] [address] Millie Flores Urea nitrogen [Mass/Vol] 13.0 mg/dL Normal 7.0-17.0 [facility] Comment on above: Performed By: #### C BC #### [facility] [address] [address] [address] Millie Flores Urea nitrogen/Creatinine [Mass ratio] 17.8 mg/mg Normal [facility] Comment on above: Performed By: #### C BC #### [facility] [address] [place] [address] Dr. Millie Flores XR ABD FLAT UP_PA [...] GEOVANI SELBY Date: 2021-07-30 09:44 Normal [facility] AMYLASEon 07-29-2021 Amylase [Catalytic activity/Vol] 105 U/L Normal 31-110 [facility] Comment on above: Performed By: #### C BC #### [facility] [address] [place], [place] [id number] Dr. Millie Flores CBC W MANUAL DIFFon 07-29-20 21 ATYPICAL LYMPH # Normal [facility] Comment on above: Performed By: #### C BCMAN #### [facility] [address] [place] [address] Dr. Millie Flores ATYPICAL LYMPH % Normal [facility] Comment on above: Performed By: #### C BCMAN #### [facility] [address] [address] [address] Millie Flores BAND # Normal 0.0-0.3 [facility] Comment on above: Performed By: #### C BCMAN #### [facility] [address] [place] [address] Dr. Millie Flores BAND % Normal 0-5 [facility] Comment on above: Performed By: #### C BCMAN #### [facility] [address] [address] [address] Millie Flores BASOM # 0.00 103/ul Normal 0.00-0.10 [facility] Comment on above: Performed By: #### C BCMAN #### [facility] [address] [place] [address] Dr. Millie Flores BASOM % 0.0 % Critically low 0.2-2.0 [facility] Comment on above: Performed By: #### C BCMAN #### [facility] [address] [place] [address] Dr. Millie Flores BLAST # Normal [facility] Comment on above: Performed By: #### C BCMAN #### [facility] [address] [place] [address] Dr. Millie Flores BLAST % Normal [facility] Comment on above: Performed By: #### C BCMEGAN #### [facility] [address] [place] [address] Dr. Millie Flores CORRECTED WBC Normal 4.0-11.0 [facility] Comment on above: Performed By: #### C BCMAN #### [facility] [address] [address] [address] Millie Flores EOS # 0.00 103/ul Normal 0.00-0.70 [facility] Comment on above: Performed By: #### C BCMAN #### [facility] [address] [place] [address] Dr. Millie Flores EOS% 0.0 % Critically low 0.9-7.0 [facility] Comment on above: Performed By: #### C GEOFFREY #### [facility] [address] [address] [address] Millie Flores HCT 44.2 % Normal 36.0-48.0 [facility] Comment on above: Performed By: #### C GEOFFREY #### [facility] [address] [address] [address] Millie Flores HGB 14.6 g/dl Normal 12.0-16.0 [facility] Comment on above: Performed By: #### C GEOFFREY #### [facility] [address] [address] [address] Millie Flores LYMPHM # 1.93 103/ul Normal 1.20-3.80 [facility] Comment on above: Performed By: #### C GEOFFREY #### [facility] [address] [place] [address] Dr. Millie Flores LYMPHM% 11.0 % Critically low 20.5-60.0 [facility] Comment on above: Performed By: #### C GEOFFREY #### [facility] [address] [address] [address] Millie Flores MCH 31.2 pg Normal 26.7-34.0 [facility] Comment on above: Performed By: #### C GEOFFREY #### [facility] [address] [place] [address] Dr. Millie Flores MCHC 33.0 g/dl Normal 29.9-35.2 [facility] Comment on above: Performed By: #### C GEOFFREY #### [facility] [address] [address] [address] Millie Flores MCV 94.4 fL Normal 81.0-99.0 [facility] Comment on above: Performed By: #### C GEOFFREY #### [facility] [address] [place] [address] Dr. Millie Flores METAMYELOCYTE # Normal [facility] Comment on above: Performed By: #### Bharat HALE #### [facility] [address] [place] [address] Dr. Millie Flores METAMYELOCYTE % Normal [facility] Comment on above: Performed By: #### C BCMAN #### [facility] [address] [place] [address] Dr. Millie Flores MONOM# 1.57 103/ul Critically high 0.30-0.80 [facility] Comment on above: Performed By: #### C BCMAN #### [facility] [address] [place] [address] Dr. Millie Flores MONOM% 9.0 % Normal 1.7-12.0 [facility] Comment on above: Performed By: #### C BCMAN #### [facility] [address] [place] [address] Dr. Millie Flores MPV 9.9 fL Normal 9.5-13.5 [facility] Comment on above: Performed By: #### C GEOFFREY #### [facility] [address] [place] [address] Dr. Millie Flores MYELOCYTE # Normal [facility] Comment on above: Performed By: #### C GEOFFREY #### [facility] [address] [place] [address] Dr. Millie Flores MYELOCYTE % Normal [facility] Comment on above: Performed By: #### C GEOFFREY #### [facility] [address] [place] [address] Dr. Millie Flores NRBC Normal [facility] Comment on above: Performed By: #### C BCMEGAN #### [facility] [address] [place] [address] Dr. Millie Flores PLT 258 103/ul Normal 150-450 [facility] Comment on above: Performed By: #### C BCMAN #### [facility] [address] [place] [address] Dr. Millie Flores RBC 4.68 106/ul Normal 4.20-5.40 [facility] Comment on above: Performed By: #### C BCMEGAN #### [facility] [address] [place] [address] Dr. Millie Flores RDW 13.5 % Normal 11.0-15.0 [facility] Comment on above: Performed By: #### C BCMAN #### [facility] [address] [place], [place] [address] Dr. Millie Flores SEG # 14.00 103/ul Critically high 1.40-6.50 [facility] Comment on above: Performed By: #### C BCMAN #### [facility] [address] [place], [place] [address] Dr. Millie Flores SEG % 80.0 % Critically high 43.0-75.0 [facility] Comment on above: Performed By: #### C BCMAN #### [facility] [address] [place], [place] [address] Dr. Millie Flores WBC 17.5 103/ul Critically high 4.0-11.0 [facility] Comment on above: Performed By: #### C BCMAN #### [facility] [address] [place], [place] [address] ABD/PELVIS WO CONon [...] MORENO JORGENSEN Date: 2021-07-29 18:25 Normal [facility] Covid-19 PCR ([facility])on SARS-CoV-2 (COVID-19) RNA CHETAN+probe Ql (Unsp spec) Not detected Normal NOT DETECTED [facility] Comment on above: Result Comment: This test is not yet approved or cleared by the [place] FDA. When there are no FDA-approved or cleared tests available, and other criteria are met, FDA can make tests available under an emergency access mechanism called an Emergency Use Authorization (EUA). The EUA for this test is supported by the [employer] of Health and Human Service's (HHS's) declaration [...] SARS-CoV-2. Performed By: #### C VDTB #### [facility] [address] [place] [address] Dr. Millie MALCOLM URINE PROFILEon 1 Bilirubin Ql (U) Negative Normal NEGATIVE [facility] Comment on above: Performed By: #### U MICRO, ERUR #### [facility] [address] [address] [address] Millie Flores Clarity (U) CLEAR Normal CLEAR [facility] Comment on above: Performed By: #### U MICRO, ERUR #### [facility] [address] [place] [address] Dr. Millie Flores Color (U) YELLOW Normal YELLOW [facility] Comment on above: Performed By: #### U MICRO, ERUR #### [facility] [address] [place] [address] Dr. Millie Flores ERUAHD A micrscopic examination will be performed if indicated. Normal [facility] Comment on above: Performed By: #### U MICRO, ERUR #### [facility] [address] [place] [address] Dr. Millie Flores Glucose Ql (U) Negative Normal NEGATIVE [facility] Comment on above: Performed By: #### U MICRO, ERUR #### [facility] [address] [place] [address] Dr. Millie Flores Hemoglobin Ql (U) TRACE-INTACT Abnormal NEGATIVE [facility] Comment on above: Performed By: #### U MICRO, ERUR #### [facility] [address] [place] [address] Dr. Millie Flores Ketones Ql (U) TRACE Abnormal NEGATIVE [facility] Comment on above: Performed By: #### U MICRO, ERUR #### [facility] [address] [address] [address] Millie Flores LEUKOCYTES SMALL Abnormal NEGATIVE [facility] Comment on above: Performed By: #### U MICRO, ERUR #### [facility] [address] [address] [address] Millie Flores Nitrite Ql (U) Negative Normal NEGATIVE [facility] Comment on above: Performed By: #### U MICRO, ERUR #### [facility] [address] [place] [address] Dr. Millie Flores pH (U) 6.5 [pH] Normal 5-9 [facility] Comment on above: Performed By: #### U MICRO, ERUR #### [facility] [address] [place] [address] Dr. Millie Flores SPEC GRAVITY 1.020 Normal 1.005-<=1.02 5 [facility] Comment on above: Performed By: #### U MICRO, ERUR #### [facility] [address] [place] [address] Dr. Millie Flores UA PROTEIN TRACE Normal NEGATIVE/ TRACE [facility] Comment on above: Performed By: #### U MICRO, ERUR #### [facility] [address] [place] [address] Dr. Millie Flores UR MICRO IND INDICATED Normal [facility] Comment on above: Performed By: #### U MICRO, ERUR #### [facility] [address] [place] [address] Dr. Millie Flores Urobilinogen Qn (U) 1.0 {Robert'U}/dL Normal 0.2 - 1. 0 [facility] Comment on above: Performed By: #### U MICRO, ERUR #### [facility] [address] [place] [address] Dr. Millie Flores LIPASEon 07-29-2021 Lipase [Catalytic activity/Vol] 123.0 U/L Normal 23.0-300.0 [facility] Comment on above: Performed By: #### C BC #### [facility] [address] [place] [address] Dr. Millie Flores PROF 14(COMP METB)on 021 Albumin [Mass/Vol] 3.9 g/dL Normal 3.5-5.0 [facility] Comment on above: Performed By: #### C BC #### [facility] [address] [place] [address] Dr. Millie Flores Albumin/Globulin [Mass ratio] 1.1 {ratio} Normal [facility] Comment on above: Performed By: #### C BC #### [facility] [address] [place] [address] Dr. Millie Flores ALP [Catalytic activity/Vol] 89 U/L Normal 38-126 [facility] Comment on above: Performed By: #### C BC #### [facility] [address] [address] [address] Millie Flores ALT [Catalytic activity/Vol] 17 U/L Normal 9-52 [facility] Comment on above: Performed By: #### C BC #### [facility] [address] [place] [address] Dr. Millie Flores Anion gap [Moles/Vol] 12.3 mmol/L Normal [facility] Comment on above: Performed By: #### C BC #### [facility] [address] [address] [address] Millie Flores AST [Catalytic activity/Vol] 21 U/L Normal 14-36 [facility] Comment on above: Performed By: #### C BC #### [facility] [address] [place] [address] Dr. Millie Flores Bilirubin [Mass/Vol] 0.6 mg/dL Normal 0.2-1.3 [facility] Comment on above: Performed By: #### C BC #### [facility] [address] [place] [address] Dr. Millie Flores Calcium [Mass/Vol] 9.7 mg/dL Normal 8.4-10.2 [facility] Comment on above: Performed By: #### C BC #### [facility] [address] [place] [address] Dr. Millie Flores Chloride [Moles/Vol] 100 mmol/L Normal 98-107 [facility] Comment on above: Performed By: #### C BC #### [facility] [address] [address] [address] Millie Flores CO2 [Moles/Vol] 26.7 mmol/L Normal 22.0-30.0 [facility] Comment on above: Performed By: #### C BC #### [facility] [address] [place] [address] Dr. Millie Flores Creatinine [Mass/Vol] 0.95 mg/dL Normal 0.52-1.04 [facility] Comment on above: Performed By: #### C BC #### [facility] [address] [address] [address] Millie Flores EGFR-AF MACANESE >60 Normal >=60 [facility] Comment on above: Performed By: #### C BC #### [facility] [address] [address] [address] Millie Flores EGFR-NON AF MACANESE 58 mL/min/1.73m2 Critically low >=60 [facility] Comment on above: Performed By: #### C BC #### [facility] [address] [address] [address] Millie Flores Globulin (S) [Mass/Vol] 3.7 g/dL Normal [facility] Comment on above: Performed By: #### C BC #### [facility] [address] [address] [address] Millie Flores Glucose [Mass/Vol] 118 mg/dL Critically high 74-106 T [facility] Comment on above: Performed By: #### C BC #### [facility] [address] [address] [address] Millie Flores Potassium [Moles/Vol] 3.0 mmol/L Critically low 3.4-5.0 [facility] Comment on above: Performed By: #### C BC #### [facility] [address] [address] [address] Millie Flores Protein [Mass/Vol] 7.6 g/dL Normal 6.1-8.2 [facility] Comment on above: Performed By: #### C BC #### [facility] [address] [address] [address] Millie Flores Sodium [Moles/Vol] 136 mmol/L Critically low 137-145 Th [facility] Comment on above: Performed By: #### C BC #### [facility] [address] [address] [address] Millie Flores Urea nitrogen [Mass/Vol] 14.0 mg/dL Normal 7.0-17.0 [facility] Comment on above: Performed By: #### C BC #### [facility] [address] [address] [address] Millie Flores Urea nitrogen/Creatinine [Mass ratio] 14.7 mg/mg Normal [facility] Comment on above: Performed By: #### C BC #### [facility] [address] [place] [address] Dr. Millie Flores URINE MICROSCOPIC ONLYon BACTERIA TRACE Abnormal NONE SEEN [facility] Comment on above: Performed By: #### U MICRO, ERUR #### [facility] [address] [place] [address] Dr. Millie Flores Bacteria identified Cx Nom (U) INDICATED Normal [facility] Comment on above: Performed By: #### U MICRO, ERUR #### [facility] [address] [place] [address] Dr. Millie Flores CAST NONE SEEN Normal NONE SEEN [facility] Comment on above: Performed By: #### U MICRO, ERUR #### [facility] [address] [place] [address] Dr. Millie Flores Crystals LM Nom (Urine sed) NONE SEEN Normal NONE SEEN [facility] Comment on above: Performed By: #### U MICRO, ERUR #### [facility] [address] [place] [address] Dr. Millie Flores Epithelial cells LM Ql (Urine sed) FEW Abnormal NONE SEEN /RARE [facility] Comment on above: Performed By: #### U MICRO, ERUR #### [facility] [address] [place] [address] Dr. Millie Flores MUCOUS SMALL Abnormal NONE SEEN [facility] Comment on above: Performed By: #### U MICRO, ERUR #### [facility] [address] [place] [address] Dr. Millie Flores RBC 0-2 Normal 0-2 [facility] Comment on above: Performed By: #### U MICRO, ERUR #### [facility] [address] [place] [address] Dr. Millie Flores WBC 2-5 Abnormal NONE SEEN [facility] Comment on above: Performed By: #### U MICRO, ERUR #### [facility] [address] [place] [address] Dr. Millie Flores CULTURE URINEon 07-21-2021 CULTURE [...] Trimethoprim/Sulfametho xazole <=20 S F Normal [facility] Comment on above: Performed By: #### B MP #### [facility] [address] [place] [address] Dr. Millie Flores CBC AUTO DIFFon 07-19-2021 BASO # 0.1 103/ul Normal 0.0-0.1 [facility] Comment on above: Performed By: #### C BC #### [facility] [address] [place] [address] Dr. Millie Flores Basophils/100 WBC (Bld) 0.4 % Normal 0.2-2.0 [facility] Comment on above: Performed By: #### C BC #### [facility] [address] [place] [address] Dr. Millie Flores EO # 0.1 103/ul Normal 0.0-0.7 [facility] Comment on above: Performed By: #### C BC #### [facility] [address] [place] [address] Dr. Millie Flores Eosinophils/100 WBC (Bld) 0.9 % Normal 0.9-7.0 [facility] Comment on above: Performed By: #### C BC #### [facility] [address] [place] [address] Dr. Millie Flores Erythrocyte distribution width (RBC) [Ratio] 13.9 % Normal 11.0-15.0 [facility] Comment on above: Performed By: #### C BC #### [facility] [address] [address] [address] Millie Flores Hematocrit (Bld) [Volume fraction] 40.9 % Normal 36.0-48.0 [facility] Comment on above: Performed By: #### C BC #### [facility] [address] [place] [address] Dr. Millie Flores Hemoglobin (Bld) [Mass/Vol] 13.3 g/dL Normal 12.0-16.0 [facility] Comment on above: Performed By: #### C BC #### [facility] [address] [place] [address] Dr. Millie Flores IG # 0.05 10e3/ul Critically high 0.00-0.03 [facility] Comment on above: Performed By: #### C BC #### [facility] [address] [place] [address] Dr. Millie Flores IG % 0.4 % Normal 0.0-0.5 [facility] Comment on above: Performed By: #### C BC #### [facility] [address] [place] [address] Dr. Millie Flores LYMPH # 2.7 103/ul Normal 1.2-3.8 [facility] Comment on above: Performed By: #### C BC #### [facility] [address] [place] [address] Dr. Millie Flores Lymphocytes/100 WBC (Bld) 20.2 % Critically low 20.5-60.0 [facility] Comment on above: Performed By: #### C BC #### [facility] [address] [place] [address] Dr. Millie Flores MANUAL DIFF REQ NO Normal [facility] Comment on above: Performed By: #### C BC #### [facility] [address] [place] [address] Dr. Millie Flores MCH (RBC) [Entitic mass] 31.0 pg Normal 26.7-34.0 [facility] Comment on above: Performed By: #### C BC #### [facility] [address] [address] [address] Millie Flores MCHC (RBC) [Mass/Vol] 32.5 g/dL Normal 29.9-35.2 [facility] Comment on above: Performed By: #### C BC #### [facility] [address] [address] [address] Millie Flores MCV (RBC) [Entitic vol] 95.3 fL Normal 81.0-99.0 [facility] Comment on above: Performed By: #### C BC #### [facility] [address] [address] [address] Millie lFores MONO # 1.5 103/ul Critically high 0.3-0.8 [facility] Comment on above: Performed By: #### C BC #### [facility] [address] [place] [address] Dr. Millie Flores Monocytes/100 WBC (Bld) 11.1 % Normal 1.7-12.0 [facility] Comment on above: Performed By: #### C BC #### [facility] [address] [address] [address] Millie Flores NEUT # 8.8 103/ul Critically high 1.4-6.5 [facility] Comment on above: Performed By: #### C BC #### [facility] [address] [place] [address] Dr. Millie Flores Neutrophils/100 WBC (Bld) 67.0 % Normal 43.0-75.0 [facility] Comment on above: Performed By: #### C BC #### [facility] [address] [address] [address] Millie Flores Platelet mean volume (Bld) [Entitic vol] 10.3 fL Normal 9.5-13.5 [facility] Comment on above: Performed By: #### C BC #### [facility] [address] [place] [address] Dr. Millie Flores PLT 215 103/ul Normal 150-450 [facility] Comment on above: Performed By: #### C BC #### [facility] [address] [place] [address] Dr. Millie Flores RBC 4.29 106/ul Normal 4.20-5.40 [facility] Comment on above: Performed By: #### C BC #### [facility] [address] [place] [address] Dr. Millie Flores WBC 13.1 103/ul Critically high 4.0-11.0 [facility] Comment on above: Performed By: #### C BC #### [facility] [address] [place] [address] Dr. Millie Flores ER URINE PROFILEon 1 Bilirubin Ql (U) Negative Normal NEGATIVE [facility] Comment on above: Performed By: #### C BC #### [facility] [address] [place] [address] Dr. Millie Flores Clarity (U) CLEAR Normal CLEAR [facility] Comment on above: Performed By: #### C BC #### [facility] [address] [place] [address] Dr. Millie Flores Color (U) LT. YELLOW Normal YELLOW [facility] Comment on above: Performed By: #### C BC #### [facility] [address] [place] [address] Dr. Millie MOELLER A micrscopic examination will be performed if indicated. Normal [facility] Comment on above: Performed By: #### C BC #### [facility] [address] [place] [address] Dr. Millie Flores Glucose Ql (U) Negative Normal NEGATIVE [facility] Comment on above: Performed By: #### C BC #### [facility] [address] [place] [address] Dr. Millie Flores Hemoglobin Ql (U) Negative Normal NEGATIVE [facility] Comment on above: Performed By: #### C BC #### [facility] [address] [place] [address] Dr. Millie Flores Ketones Ql (U) TRACE Abnormal NEGATIVE [facility] Comment on above: Performed By: #### C BC #### [facility] [address] [place] [address] Dr. Millie Flores LEUKOCYTES MODERATE Abnormal NEGATIVE [facility] Comment on above: Performed By: #### C BC #### [facility] [address] [place] [address] Dr. Millie Flores Nitrite Ql (U) Positive Abnormal NEGATIVE [facility] Comment on above: Performed By: #### C BC #### [facility] [address] [place] [address] Dr. Millie Flores pH (U) 7.5 [pH] Normal 5-9 [facility] Comment on above: Performed By: #### C BC #### [facility] [address] [place] [address] Dr. Millie Flores SPEC GRAVITY 1.015 Normal 1.005-<=1.02 5 [facility] Comment on above: Performed By: #### C BC #### [facility] [address] [place] [address] Dr. Millie Flores UA PROTEIN Negative Normal NEGATIVE/ TRACE [facility] Comment on above: Performed By: #### C BC #### [facility] [address] [place] [address] Dr. Millie Flores UR MICRO IND INDICATED Normal [facility] Comment on above: Performed By: #### C BC #### [facility] [address] [place] [address] Dr. Millie Flores Urobilinogen Qn (U) 1.0 {Robert'U}/dL Normal 0.2 - 1. 0 [facility] Comment on above: Performed By: #### C BC #### [facility] [address] [place] [address] Dr. Millie Flores PROF CHEM 8 (BAS METB)on Anion gap [Moles/Vol] 14.8 mmol/L Normal [facility] Comment on above: Performed By: #### B MP #### [facility] [address] [place] [address] Dr. Millie Flores Calcium [Mass/Vol] 9.2 mg/dL Normal 8.4-10.2 [facility] Comment on above: Performed By: #### B MP #### [facility] [address] [address] [address] Millie Flores Chloride [Moles/Vol] 103 mmol/L Normal 98-107 [facility] Comment on above: Performed By: #### B MP #### [facility] [address] [address] [address] Millie Flores CO2 [Moles/Vol] 24.0 mmol/L Normal 22.0-30.0 [facility] Comment on above: Performed By: #### B MP #### [facility] [address] [address] [address] Millie Flores Creatinine [Mass/Vol] 1.09 mg/dL Critically high 0.52-1.04 [facility] Comment on above: Performed By: #### B MP #### [facility] [address] [address] [address] Millie Flores EGFR-AF MACANESE 60 mL/min/1.73m2 Normal >=60 [facility] Comment on above: Performed By: #### B MP #### [facility] [address] [address] [address] Millie Flores EGFR-NON AF MACANESE 49 mL/min/1.73m2 Critically low >=60 [facility] Comment on above: Performed By: #### B MP #### [facility] [address] [address] [address] Millie Flores Glucose [Mass/Vol] 116 mg/dL Critically high 74-106 [facility] Comment on above: Performed By: #### B MP #### [facility] [address] [address] [address] Millie Flores Potassium [Moles/Vol] 3.8 mmol/L Normal 3.4-5.0 [facility] Comment on above: Performed By: #### B MP #### [facility] [address] [address] [address] Millie Flores Sodium [Moles/Vol] 138 mmol/L Normal 137-145 [facility] Comment on above: Performed By: #### B MP #### [facility] [address] [place] [address] Dr. Millie Flores Urea nitrogen [Mass/Vol] 22.0 mg/dL Critically high 7.0-17.0 [facility] Comment on above: Performed By: #### B MP #### [facility] [address] [place] [address] Dr. Millie Flores Urea nitrogen/Creatinine [Mass ratio] 20.2 mg/mg Normal [facility] Comment on above: Performed By: #### B MP #### [facility] [address] [place] [address] Dr. Millie Flores URINE MICROSCOPIC ONLYon BACTERIA LARGE Abnormal NONE SEEN [facility] Comment on above: Performed By: #### C BC #### [facility] [address] [place] [address] Dr. Millie Flores Bacteria identified Cx Nom (U) INDICATED Normal [facility] Comment on above: Performed By: #### C BC #### [facility] [address] [place] [address] Dr. Millie Flores CAST NONE SEEN Normal NONE SEEN [facility] Comment on above: Performed By: #### C BC #### [facility] [address] [place] [address] Dr. Millie Flores Crystals LM Nom (Urine sed) NONE SEEN Normal NONE SEEN [facility] Comment on above: Performed By: #### C BC #### [facility] [address] [place] [address] Dr. Millie Flores Epithelial cells LM Ql (Urine sed) RARE Normal NONE SEEN /RARE [facility] Comment on above: Performed By: #### C BC #### [facility] [address] [place] [address] Dr. Millie Flores MUCOUS NONE SEEN Normal NONE SEEN [facility] Comment on above: Performed By: #### C BC #### [facility] [address] [place] [address] Dr. Millie Flores RBC NONE SEEN Abnormal 0-2 [facility] Comment on above: Performed By: #### C BC #### [facility] [address] [place], [place] [address] Dr. Millie Flores WBC 10-20 Abnormal NONE SEEN [facility] Comment on above: Performed By: #### C BC #### [facility] [id number] Millie Flores XR ABD FLAT_UPon 07-19-2021 [...] HANG MACIAS Date: 2021-07-19 00:50 Normal [facility] XR pre/post mri xrayon 05-08 XR pre/post mri xray [facility] [place] [address] [place] [address] MRI Report Signed Patient: Areli Hawkins MR#: [id number] : 1945 Acct:[id number] Age/Sex: 75 / F ADM Date: 05/08/21 Loc: [facility] Room: Type: [facility] Attending Dr: Nohelia Kline PA-C Ordering Provider: Nohelia GREWAL Date of Service: 05/08/21 MR/MR lumbar spine wo con: R20.2 ([id number]) XR/XR pre/post mri xray: R20.2 Copies to: Nohelia Kline [facility] MR lumbar spine wo con, XR [...] 2:52 PM Dictation Location: RADIO--04 Transcribed By: [facility] 05/08/21 1452 Dictated By: Emery Shine II, MD 05/08/21 1402 Signed By: 05/08/21 1452 Normal [facility] XR pre/post mri xrayon 02-03 XR pre/post mri xray [facility] [place] [address] MRI Report Signed Patient: Areli Hawkins MR#: [id number] : 1945 Acct:[id number] Age/Sex: 75 / F ADM Date: 02/03/21 Loc: [facility] Room: Type: [facility] CLI Attending Dr: Moises Miguel MD Ordering Provider: Moises Miguel MD Date of Service: 02/03/21 MR/MR cervical spine wo con: R20.2 PARESTHESIA R29.9 HYPER REFLEXIA M17.12 CERVICAL SPNDY ([id number]) XR/XR pre/post mri xray: C SPINE Copies [...] Allan Salinas M.D.02/03/2021 5:00 PM Dictation Location: [place] [address] Transcribed By: JORGE 02/03/211699 Dictated By: Allan Salinas DO 02/03/211649 Signed By: 02/03/211699 [facility] Gastroenterology Office/Clin ic Noteon 09-20-2020 [...] Primary malignant neoplasm of prostate: Father. Normal [facility] Comment on above: Result Comment: Elec tronically Signed By: TEODORO BAÑUELOS, Cristal\.br\Date and Time Signed: 09/20/20 14:17 EST Coding Summary.on 09-06-2020 Coding Summary. CODING DATE: 020 FINAL [facility] STATUS: Home (Routine DC) PAYOR: Medicare ADMIT [...] Burris Date Saved: 09/06/2020 08:17 am Normal [facility] Priority Order-Blair 2019 Priority Order-STAT Comment Invalid Interpretation Code [facility] Comment on above: Result Comment: Rece ived Performed at: [facility] [address] [place], [place] [id number] MD Hilda Palmer Performed By: #### S ARS-CoV-2, CHETAN, [id number] ####[facility] [id number] [place] [address] SARS-CoV-2, NAAon 09-02-2020 SARS-CoV-2 (COVID-19) RNA CHETAN+probe Ql (Resp) Not detected Invalid Interpretation Code Not Detected [facility] Comment on above: Result Comment: This nucleic acid amplification test was developed and its performance characteristics determined by [facility]. Nucleic acid amplification tests include PCR and [...] detected) result in this assay. Performed at: [facility] [address] [facility] [place] [id number] MD Hilda Palmer Performed By: #### S ARS-CoV-2, CHETAN, [id number] #### [facility] [address] [place] [address] Consent for Procedure/Surger yon 08-26-2020 Consent for Procedure/Surgery [id number] D:127 Normal [facility] Physician Orderon 08-26-2020 Physician Order [id number] CD:127 Normal [facility] Ambulatory Clinical Summaryo n 08-25-2020 Ambulatory Clinical Summary {[id number] Normal [facility] Patient Educationon 08-25-20 20 Patient Education Family [...] ? Medicines taken, including vitamins, herbs, eyedrops, osgn-oqk-dtjakxt medicines, and creams. ? Use of steroids [...] medicines have worn off. ? Only take iafv-qch-dsfdrvj or prescription medicines for pain, discomfort, or [...] 09/06/2001 Document Revised: 12/01/2012 Document Reviewed: 04/21/2009 [facility]? Patient Information ?2013 [employer]. Heartburn Heartburn is a painful, burning sensation [...] caregiver may tell you to use certain tjav-dvg-qtcuxai medicines (antacids, acid reducers) for mild heartburn. [...] not impro (more content not included)... Normal [facility] Physician Orderon 08-25-2020 Physician Order [id number] D:127 [facility] Physician Referralon 020 Physician Referral [id number] D:127 [facility] Vital Signs Date Time Vital Sign Value Performing Clinician Madi sun 10-23-2023 11:00-0500 Body height 162.56 cm [employer] Other adjust Other 10-23-2023 11:00-0500 Body mass index (BMI) [Ratio] 42.84 kg/m2 [employer] Other adjust Other 10-23-2023 11:00-0500 Body weight 113.22 kg [employer] Other adjust Other 10-23-2023 11:00-0500 Diastolic blood pressure 67 mm[Hg] [employer] Other adjust Other 10-23-2023 11:00-0500 Respiratory rate 16 /min [employer] Other adjust Other 10-23-2023 11:00-0500 Systolic blood pressure 133 mm[Hg] Anurag Ball Other adjust Other 08-27-2023 14:00-0500 Body height 162.56 cm Anurag Ball Other adjust Other 08-27-2023 14:00-0500 Body mass index (BMI) [Ratio] 42.36 kg/m2 Anurag Ball Other adjust Other 08-27-2023 14:00-0500 Body weight 111.95 kg Anurag Ball Other adjust Other 08-27-2023 14:00-0500 Diastolic blood pressure 79 mm[Hg] Anurag Ball Other adjust Other 08-27-2023 14:00-0500 Respiratory rate 20 /min Anurag Ball Other adjust Other 08-27-2023 14:00-0500 Systolic blood pressure 142 mm[Hg] Anurag Ball Other adjust Other 05-29-2023 10:30-0400 Body height 162.56 cm Anurag Ball Other adjust Other 05-29-2023 10:30-0400 Body mass index (BMI) [Ratio] 41.23 kg/m2 Anurag Ball Other adjust Other 05-29-2023 10:30-0400 Body weight 108.95 kg Anurag Ball Other adjust Other 05-29-2023 10:30-0400 Diastolic blood pressure 76 mm[Hg] Anurag Ball Other adjust Other 05-29-2023 10:30-0400 Respiratory rate 12 /min Anurag Ball Other [employer] Other 05-29-2023 10:30-0400 Systolic blood pressure 123 mm[Hg] Anurag Ball Other [employer] Other 05-03-2023 10:00-0400 Body height 162.56 cm Anurag Ball Other [employer] Other 05-03-2023 10:00-0400 Body mass index (BMI) [Ratio] 40.3 kg/m2 Anurag Ball Other [employer] Other 05-03-2023 10:00-0400 Body weight 106.51 kg Anurag Ball Other [employer] Other 05-03-2023 10:00-0400 Diastolic blood pressure 75 mm[Hg] Anurag Ball Other [employer] Other 05-03-2023 10:00-0400 Respiratory rate 12 /min Anurag Ball Other [employer] Other 05-03-2023 10:00-0400 Systolic blood pressure 120 mm[Hg] Anurag Ball Other [employer] Other 01-16-2022 11:55-0400 Body height 162.6 cm Marie Lea MD Work Phone: [facility] 01-16-2022 11:55-0400 Body weight 95.25 kg Marie Lea MD Work Phone: [facility] 01-16-2022 11:55-0400 Diastolic blood pressure 62 mm[Hg] Marie Lea MD Work Phone: [facility] 01-16-2022 11:55-0400 Heart rate 64 /min Marie Lea MD Work Phone: [facility] 01-16-2022 11:55-0400 Systolic blood pressure 150 mm[Hg] Marie Lea MD Work Phone: [facility] 10-05-2021 11:53-0500 Body height 162.56 cm Anurag E Ball Work Phone: [facility] [place] Work Phone: 10-05-2021 11:53-0500 Body mass index (BMI) [Ratio] 34.67 kg/m2 Anurag E Ball Work Phone: [facility] [address] [place] Work Phone: 10-05-2021 11:53-0500 Body surface area Derived from formula 1.96 m2 Anurag E Ball Work Phone: [facility] [place] Work Phone: 10-05-2021 11:53-0500 Body weight 91.63 kg Anurag E Ball Work Phone: [facility] [address] [place] Work Phone: 10-05-2021 11:53-0500 Diastolic blood pressure 80 mm[Hg] Anurag E Ball Work Phone: [facility] [facility] [address] [place] Work Phone: 10-05-2021 11:53-0500 Heart rate 69 /min Anurag E Ball Work Phone: [facility] [address] [place] Work Phone: 10-05-2021 11:53-0500 Systolic blood pressure 127 mm[Hg] Anurag E Ball Work Phone: [facility] [address] [place] Work Phone: 06-22-2021 11:00-0400 Body height 162.56 cm Carlos Gong Other adjust Other 06-22-2021 11:00-0400 Body mass index (BMI) [Ratio] 35.18 kg/m2 Carlos Gong Other adjust Other 06-22-2021 11:00-0400 Body weight 92.99 kg Carlos Gong Other adjust Other 06-22-2021 11:00-0400 Diastolic blood pressure 84 mm[Hg] Carlos Gong Other adjust Other 06-22-2021 11:00-0400 Respiratory rate 18 /min Carlos Gong Other adjust Other 06-22-2021 11:00-0400 Systolic blood pressure 138 mm[Hg] Carlos Gong Other adjust Other Encounters Encounter Date Encounter Type Care Provider Facility Start: 11-04-2023 End: 11-05-2023 ambulatory [facility] Start: 10-23-2023 End: 10-23-2023 ambulatory Anurag Bolton Other adjust Other Start: 10-23-2023 Patient encounter procedure Anurag CELESTIN [facility] Start: 10-14-2023 End: 10-15-2023 ambulatory Bryant Richardson MD Facility: [facility] Start: 10-07-2023 End: 2023 ambulatory Bryant Richardson MD Facility: [facility] Start: 10-01-2023 End: 10-01-2023 ambulatory Anurag Bolton Other adjust Other Start: 10-01-2023 Telephone encounter Anurag Mendez [facility] Start: 09-10-2023 End: 09-10-2023 ambulatory Anurag Ball Other adjust Other Start: 09-10-2023 Telephone encounter Anurag Bolton [facility] Start: 08-28-2023 End: 08-28-2023 ambulatory Anurag Ball Other adjust Other Start: 08-28-2023 Telephone encounter Naurag Ball [facility] Start: 08-27-2023 End: 08-27-2023 ambulatory Anurag Ball Other adjust Other Start: 08-27-2023 Office outpatient visit 15 minutes Anurag Ball [facility] Start: 08-06-2023 End: 08-06-2023 ambulatory Anurag Ball Other adjust Other Start: 08-06-2023 Nursing evaluation o f patient and report Anurag Ball [facility] Start: 06-10-2023 End: 06-10-2023 ambulatory Anurag Ball Other adjust Other Start: 06-10-2023 Telephone encounter Anurag Ball [facility] Start: 05-29-2023 End: 05-29-2023 ambulatory Anurag Ball Other adjust Other Start: 05-29-2023 Office outpatient visit 15 minutes Anurag Ball [facility] Start: 05-06-2023 End: 05-06-2023 ambulatory Anurag Ball Other adjust Other Start: 05-06-2023 Telephone encounter Anurag Ball [facility] Start: 05-03-2023 End: 05-03-2023 ambulatory Anurag Ball Other adjust Other Start: 05-03-2023 Office outpatient visit 25 minutes Anurag Ball [facility] Start: 04-25-2023 End: 04-25-2023 ambulatory Anurag Ball Other adjust Other Start: 04-25-2023 Telephone encounter Anurag [facility] Start: 02-01-2022 Telephone encounter Sabas Lea MD Work Phone: Neurology Comment on above: Results Start: 01-16-2022 End: 01-16-2022 Patient encounter procedure Marie Lea MD Work Phone: Neurology Comment on above: 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); Abnormal finding of blood chemistry, unspecified Start: 12-28-2021 End: 12-28-2021 ambulatory Carlos Gong Other adjust Other Start: 12-28-2021 Office outpatient visit 15 minutes Carlos Gong [facility] Start: 12-23-2021 End: 12-23-2021 Adult health examination Anurag Bolton Other adjust Other Start: 10-05-2021 Office outpatient visit 25 minutes Anurag Bolton Work Phone: [facility] [address] [place] Work Phone: Start: 09-07-2021 End: 09-08-[address] ROSI GONG Facility:[facility] Start: 08-30-2021 End: 08-30-[address] ROSI GONG Facility:[facility] Start: 07-29-2021 End: 07-31-2021 Evaluation and management of inpatient DR YARITZA COOK Facility:[facility] Start: 07-19-2021 End: 07-19-[address] ROSI GONG Facility:[facility] Start: 06-22-2021 Office outpatient ne w 45 minutes Carlos Gong [facility] Start: 09-22-2020 End: 09-23-2020 ambulatory [...] Author Start: 01-16-2025 DIABETES SCREEN DIABETES SCREEN [facility] Start: 01-11-2023 Adult depression screening assessment DEPRESSION SCREENING [facility] Start: 01-16-2022 End: 03-18-2022 CRYOGLOBULIN, QUAL, REFLEX TO CASSI AND IGG,A,M [facility] Work Phone: Comment on above: Expected: 01/16/2022 , Expires: 03/18/2022 Start: 09-23-2021 ADVANCE DIRECTIVE DISCUSSION ADVANCE DIRECTIVE DISCUSSION [facility] Start: 2012 BONE DENSITY BONE DENSITY [facility] Start: 2012 PNEUMOVAX AGE 65 AND OVER WITH 5YR LOOKBACK (#1) PNEUMOVAX AGE 65 AND OVER WITH 5YR LOOKBACK (#1) [facility] Start: 1997 SHINGRIX VACCINE (1 of 2) SHINGRIX VACCINE (1 of 2) [facility] Start: 1992 COLOGUARD (FIT-DNA) COLOGUARD (FIT-D NA) [facility] Start: 1992 Colonoscopy COLONOSCOPY [facility] Start: 1992 COLORECTAL CANCER SCREENING COLORECTAL CANCER SCREENING [facility] Start: [address] COLONOGRAPHY [facility] Start: 1992 FECAL OCCULT BLOOD FECAL OCCULT BLOO D [facility] Start: 1992 LIPID SCREEN LIPID SCREEN [facility] Start: 1992 SIGMOIDOSCOPY SIGMOIDOSCOPY [facility] Start: 1987 Mammography MAMMOGRAM [facility] Start: 1966 Urine microalbumin profile DTAP,TDAP,TD (1 - Tdap) [facility] Start: 1965 HEPATITIS C SCREENING HEPATITIS C [facility] Immunizations Immunization Date Immunization Notes Care Provider Dwight recinos 08-06-2023 influenza, high dose seasonal, preservative-free Anurag Oj Other adjust Other 08-07-2022 COVID-19 Pfizer (Pediatric) Anurag jO Other adjust Other 08-07-2022 influenza virus vaccine, split virus (incl. purified surface antigen) Anurag Oj Other adjust Other 01-30-2022 COVID-19 Vaccine Pfi zer - Documentation Purposes Only Anurag Oj Other adjust Other 08-08-2021 Fluzone High-Dose Quadrivalent 0.7 ML Intramuscular Suspension Prefilled Syringe Anurag Norberto Bolton Work Phone: [facility] [employer] [address] [place] Work Phone: 06-27-2021 Moderna COVID-19 Vaccine 100 MCG/0.5ML Intramuscular Suspension Anurag Norberto Oj Work Phone: [facility] [employer] [address] [place] Work Phone: 06-20-2021 Pfizer-BioNTech COVID-19 Vacc 30 MCG/0.3ML Intramuscular Suspension Anurag Norberto Oj Work Phone: [facility] [employer] [address] [place] Work Phone: 11-17-2020 Pfizer-BioNTech COVID-19 Vacc 30 MCG/0.3ML Intramuscular Suspension Anurag Norberto Oj Work Phone: [facility] [employer] [address] [place] Work Phone: 10-27-2020 Pfizer-BioNTech COVID-19 Vacc 30 MCG/0.3ML Intramuscular Suspension Anurag Bolton Work Phone: [facility] [employer] [address] [place] Work Phone: 06-28-2020 Fluad Quadrivalent 0 .5 ML Intramuscular Prefilled Syringe [facility]ag [facility] [address] [place] Work Phone: 07-07-2019 influenza, high dose seasonal, preservative-free [facility] [address] [place] Work Phone: 07-15-2018 influenza, high dose seasonal, preservative-free [facility]ag [facility] [address] [place] Work Phone: 07-23-2017 influenza, high dose seasonal, preservative-free [facility] [address] [place] Work Phone: 02-05-2017 pneumococcal conjuga te vaccine, 13 valent [facility]urag [facility] [address] [place] [address] Work Phone: 02-05-2017 pneumococcal Conjuga te, unspecified formulation; Translations: [Need for prophylactic vaccination against Streptococcus pneumoniae (pneumococcus)] Anurag Bolton Other [facility] [employer] Other 07-05-2016 influenza virus vaccine, split virus (incl. purified surface antigen) Anurag Bolton Other [facility] [employer] Other 07-05-2016 influenza, high dose seasonal, preservative-free Anurag Bolton Work Phone: [facility] [address] [employer] Work Phone: 09-23-2015 pneumococcal polysaccharide vaccine, 23 valent Anurag Bolton Work Phone: [facility] [address] [place] Work Phone: 08-30-2015 influenza, seasonal, injectable, preservative free [facility]urag Bolton [facility] [address] [place] Work Phone: 07-05-2014 influenza, high dose seasonal, preservative-free Anurag Bolton [facility] [address] [place] Work Phone: 02-02-2013 pneumococcal polysaccharide vaccine, 23 valent [facility]ag [facility] Work Phone: Payers Date Payer Category Payer Medicare 2023 Unknown 2020 Unknown MMO MMO MEDICARE SUPPLEMENT [id number] 2020-Present [phone] [address] [place] [address] Indemnity [id number] 2012 Medicare MEDICARE MEDICAR E A AND B [id number] 2012-Present [phone] [address] [address] [place] [address] Medicare [id number] 1959 Medicare [id number] 1959 Unknown [id number] 1947 Unknown [id number] 1947 Unknown [id number] 1947 Unknown [id number] 1947 Unknown [id number] 1947 Unknown [id number] 1947 Unknown [id number] 1947 Unknown [id number] 1947 Unknown [id number] Social History Date Type Detail Facility Daily caffeine consumption Daily caffeine consumption adjust Other Comment on above: 3 diet pops daily.; Start: 01-16-2022 Tobacco smoking stat [facility] Never smoked tobacco [facility] Start: 01-16-2022 Tobacco use and exposure Smokeless tobacco non-user [facility] Start: 01-16-2022 Alcohol intake Ex-drinker (finding) [facility] Start: 1945 Sex Assigned At Female C [facility] Start: 12-31-2021 End: 01-10-2022 Exposure to SARS-CoV-2 (event) Not sure [facility] Sex Assigned At Sex Assigned At Bir th adjust Other Clinical Notes 06-22-2021 to 10-23-2023 Note [...] Suggest to check labs: CBC, TSH, A1C adjust Other 01-09-2024 Evaluation note* Encounter Date Diagnosis Assessment Notes Treatment Notes Treatment Clinical Notes Sep, Primary hypertension (ICD-10 - I10) adjust Other 12-05-2023 Evaluation note* Encounter Date Diagnosis [...] index [BMI] 40.0-44.9, adult (ICD-10 - Z68.41) adjust Other 12-05-2023 Evaluation note* Encounter Date Diagnosis [...] [BMI ] 40.0-44.9, adult (ICD-10 - Z68.41) adjust Other 09-06-2023 Evaluation note* Encounter Date Diagnosis [...] as needed. Continue OTC treatment for now. adjust Other 08-11-2023 Evaluation note* Encounter Date Diagnosis [...] (ICD-10 - R79.89) r/o DVT w/ venous [employer] Other 05-12-2022 Miscellaneous Notes* Telephone Encounter - [...] relief. Marie Lea MD [facility] Instructions* Patient Instructions* Marie Lea MD [...] it on your ownagain. documented in this encounterMer[facility]-2022 NoteHNO ID: [id number] Author: Samantha Lopez MD Service: ? Author Type: Physician Type: Progress Notes Filed: 01/22/2022 3:56 PM Note Text: [facility] New Patient Evaluation Consulting Provider: Anurag Bolton ([facility]) [address] [address] Consultation requested by the above doctor for [...] a workup by a local neurologist in [facility], which performed MR of the lumbar [...] for reported prolon (more content not included)... [facility]04-26-2022 History of Present illness Narrative* Samantha Lopez MD - 01/16/2022 1:00 PM EDT Images from the original note were not included. [facility] New Patient Evaluation Consulting Provider: Anurag Bolton ([facility]) [address] [address] Consultation requested by the above doctor for [...] a workup by a local neurologist in [facility], which performed MR of the lumbar [...] 0 Vertical spread: No Crossed adductors: No Mgcill's sign: No Tromner's sign: No Plantar responses: [...] raising-bilaterally negative COORDINATION/GAIT: Normal finger-to- nose-finger and [id number] bilaterally. Intact rapid alternating movements bilaterally. Gait [...] will be communicated to the patient via telephone/[employer]. Patient to call office if not contacted after expected testing turnaround time. To aid with communication, patients (and primary care physicians) can sign up for ebookpie (or [employer]), which allows online appointment scheduling, transmission of labs results and chart notes, andsecure email communication. To establish either account, visit [email or web address]. Marie Lea MD Neuromuscular Medicine (NM) Fellow [...] Lopez MD cc: Referring provider: Anurag Bolton ([facility]) [address] [place] [address] [address]li Cookarnol [phone] [address] [address] documented [facility] Evaluation note* Encounter Date Diagnosis Assessment [...] re-evaluation. Dec, Sensory neuropathy (ICD-10 - G62.9) adjust Other 11-06-2021 NoteCONSULTATION Consultation Date: 07/30/2021 REASON [...] repeat urine cu (more content not included)...[id number] * Encounter Date Diagnosis Assessment [...] May, Post menopausal syndrome (ICD-10 - N95.1) adjust Other evaluation note* Diagnosis Hereditary and idiopathic peripheral neuropathy- Primary Unspecified hereditary and idiopathic peripheral neuropathy Abnormal finding of blood chemistry, unspecified [facility]* Diagnosis Abnormality of gait- Primary documented in this encounter [facility] noteNo InformationNort [employer] Other Hisnvpb general Narrative - Reported* Type Description Date Medical History Uterine Cancer Medical History Hypertension Medical History Obesity Medical History Depression Medical History Anxiety Medical History cholecystecomy Surgical History cholecystectomy Surgical History total hysterectomy Hospitalization History SEE ABOVE adjust Other Hisateu general Narrative - Reported* Type Description Date Medical History Uterine Cancer Medical History Hypertension Medical History Obesity Medical History Depression Medical History Anxiety Medical History cholecystecomy Surgical History cholecystectomy Surgical History total hysterectomy Surgical History bowel surgery Hospitalization History SEE ABOVE adjust Other Hisiajy general Narrative - Reported* Type Description Date Medical History Uterine Cancer Medical History Hypertension Medical History Obesity Medical History Depression Medical History Anxiety Medical History cholecystecomy Surgical History Problem Title : CHOL ECYSTECTOMY (59761), Problem Status : Active, Surgical History Problem Title : EXPL ORATORY LAPAROTOMY WITH LYSIS OF ADHESIONS (86754), Problem Status : Active, Surgical History Problem [...] BSO (TOTAL ABDOMINAL HYSTERECTOMY AND BILATERAL SALPINGO-OOPHORECTOMY) (16115), Problem Status : Active, Hospitalization History SEE ABOVE adjust Other Reason for referral (narrative)* Reason Referral for left si ded low back pain and left hip pain Diagnosis 1 Acute left-sided low back pain without sciatica (M54.50) Diagnosis 2 Primary osteoarthrit is of left hip (M16.12) Referral Organization [facility] Ike roni Referring Provider First Name Anurag Referring Provider Last Name Oj Referring Provider Specialty Internal Me dicine Referred Organization [facility] Referred Address [address] [place], [place],[address] Referred Provider Specialty Pain Medicin e Referral [...] XR of lumbar spine and left hip adjust Other Summary Purpose Family History No Family [...] for follow-up of a hospitalization for D/C [facility] 08/09/2021. * Patient is in the office for the first time after being seen in consultation at [facility] last month for an episode of [...] and content) DATE CREATED AUTHOR 08/02/[address] [employer] [address] [facility] DATE CREATED AUTHOR AUTHOR'S ORGANIZ ATION 09/13/2021 [facility] DATE CREATED AUTHOR AUTHOR'S ORGANIZ ATION 10/06/2021 [employer] DATE CREATED AUTHOR AUTHOR'S ORGANIZ ATION 11/10/2021 [facility] DATE CREATED AUTHOR AUTHOR'S ORGANIZ ATION 02/03/2022 [facility] DATE CREATED AUTHOR AUTHOR'S ORGANIZ ATION 11/10/2023 [facility] Source Comments (unrecognize d section and content) In the event this informatio n is protected by the Federal Confidentiality of Alcohol and Drug Abuse Patient Records regulations: The Federal rules restrict any use of the information to criminally investigate or prosecute any alcohol or drug abuse patient.[facility] Hospital[facility] the event this information is protected by the Federal Confidentiality of Alcohol and Drug Abuse Patient Records regulations: The Federal rules restrict any use of the information to criminally investigate or prosecute any alcohol or drug abuse patient.[facility] Reason for Visit (unrecogniz ed section and content) Reason Comments New Patient Reason Comments Results Care Teams (unrecognized sec tion and content) Music [employer] Relationship Specialty Start Date End Date Anurag Bolton Norberto, DO [address] [place] [address] Physician Internal Medicine 01/10/22 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 [facility] [employer] [facility] provides no warranty or guarantee of the accuracy or completeness of information in this document.
--- NOTE | 2023-11-14 11:35 | P.CN_ITS ---
Consult Note: HPI Data of Consult Patient: known to practice within the last 3 years Consult date: 10/07/23 Requesting Physician: Iraida Monique NP Primary Care Provider: Anurag Bolton DO Consult Narrative Reason for consult: low back pain Narrative: 77yof who presents for evaluation. she has had longstanding low back pain, now worsened in past several months. 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 has engaged in >6 weeks of provider directed home exercise program, with minimal benefit. has been evaluated by neurosurgery, who did not recommend surgery at the time. utilizes tylenol, cannot tolerate nsaids. denies adverse med side effects. 20% improv ement for 30 mins from bilateral L4-5 L5-S1 facet medial branch block #1. recently underwent left SIJ injection with 95% improvement in pain and functional ability. cc:: CC: Iraida Monique NP Review of Systems ROS Status of ROS 10 or more systems reviewed and unremark able except as noted in history and below Musculoskeletal Reports: back pain and joint pain PFSH PFSH Medical History (Updated 11/14/23 @ 11:39 by Iraida Monique NP) Sacroiliitis ?M46.1 - Sacroiliitis, not elsewhere classified (ICD-10) Thrombosis ?I82.90 - Acute embolism and thrombosis of unspecified vein (ICD-10) Uterine cancer ?C55 - Malignant neoplasm of uterus, part unspecified (ICD-10) Lumbar spinal stenosis ?M48.061 - Spinal stenosis, lumbar region without neurogenic claudication (ICD-10) Heartburn ?R12 - Heartburn (ICD-10) Acid reflux ?K21.9 - Gastro-esophageal reflux disease without esophagitis (ICD-10) Heart murmur ?R01.1 - Cardiac murmur, unspecified (ICD-10) Hypertension ?I10 - Essential (primary) hypertension (ICD-10) Surgical History History of intestinal surgery ?Z98.890 - Other specified postprocedural states (ICD-10) History of cholecystectomy ?Z90.49 - Acquired absence of other specified parts of digestive tract (ICD- 10) H/O: hysterectomy ?Z90.710 - Acquired absence of both cervix and uterus (ICD-10) Meds Home Medications and Allergies Home Medications Medication Instructions Recorded Confirmed Type acetaminophen 500 mg tablet (Pain 1,000 mg PO TID PRN pain 10/07/23 11/04/23 History Relief (acetaminophen)) atenolol 50 mg tablet 50 mg PO Q24H 10/07/23 11/04/23 History cyclobenzaprine 10 mg tablet 10 mg PO TID 10/07/23 11/04/23 History hydrochlorothiazide 25 mg tablet 25 mg PO DAILY 10/07/23 11/04/23 History Allergies Allergy/AdvReac Type Severity Reaction Status Date / Time No Known Drug Allergies Allergy Verified 11/04/23 08:06 Exam Narrative Exam Narrative: Psych-alert and oriented x 3. Attentive and appropriate, constitutionally normal, displays normal mood and affect per situation.? There are no obvious deficits in memory, reasoning, or intellect.? Skin-no obvious rashes, bruising, erythema noted to the patient's area of pain. Extremities- extremities are warm with minimal edema and palpable pulses. Lumbar-no significant tenderness to palpation noted in the lumbar spine and paraspinal musculature.? Pain is elicited with extension, and lateral rotation of the lumbar spine. Range of motion is slightly diminished with these motions due to pain. Facet loading maneuvers are positive bilaterally and do appear to be concordant with the patient's normal complaints of pain. No pain over left PSIS, positive modified betsy fadir thigh thrust on left? Coordination remains intact.? Gait remains non-antalgic. Constitutional Documenting provider has reviewed patient's vital signs: yes Common normals: no apparent distress, oriented x3, healthy appearing, alert and well nourished General appearance: cooperative [facility] Common normals: normocephalic, hearing grossly normal bilaterally and moist oral mucous membranes Head and scalp: normocephalic Eye Common normals: PERRL Pupil: PERRL Neck & C-Spine Common normals: full ROM General: normal visual inspection Chest Common normals: inspection of chest normal Respiratory Common normals: normal respiratory effort, no retractions and no use of accessory muscles Neuro Common normals: oriented x3, CN's II-XII intact bilaterally, moves all extremities, no focal motor deficits, no sensory deficits noted and deep tendon reflexes 2+ bilaterally Sensorium/orientation: alert Motor exam: strength 5/5 throughout and no movement abnormalities noted Psych Common normals: mental status grossly normal, thought process normal, cooperative, affect normal, speech normal and activity/motor behavior normal Speech: normal speech Thought process: normal thought process Results Additional Findings Additional findings: I have checked an [place] report on this patient today and there are no aberrancies noted in the prescribing history.?? A drug screen was completed and reviewed within the last year, and if there has not been a drug screen completed we ordered one today to monitor higher risk, state monitored pain medication use. As part of providing excellent, safe, comprehensive care, the following was completed at our patient's visit: 1. A medication reconciliation and review to ensure accurate knowledge of current/active medications, including asking our patients to inform us about any [id number] medications or herbal remedies/nutritional supplements/alternative remedies. 2. A review to specifically ensure our patients have had annual screening for: elevated body mass index (BMI), tobacco use, screening for depression, and screening for unhealthy alcohol use. When screening is concerning, patients are provided with education and the specific recommendation to discuss the concerning health issue and treatment options with their primary care provider. Assessment and Plan Assessment and Plan (1) Lumbar spondylosis: (2) Myofascial pain: (3) Sacroiliitis: Plan f/u as needed, or 3 months
== END 2023-11-14 11:19 | disposition home or self-care (01) ==
LOC: PM 11:19
PROVIDERS: PCP Internal Medicine; Visit Provider Nurse Practitioner
DX: M47.816 Spondylosis without myelopathy or radiculopathy, lumbar region (principal); M79.18 Myalgia, other site; M46.1 Sacroiliitis, not elsewhere classified
CPT/HCPCS: G0463

== ENCOUNTER 2025-01-19 08:20 | Outpatient (OUT) | payer MEDICARE, OTHER, SELFPAY ==
[2025-01-19 08:47] LABS: Basophils Absolute Auto 0.1 10^3/uL (0.0-0.1); Basophils Percent Auto 0.8 % (0.2-2.0); Eosinophils Absolute Auto 0.2 10^3/uL (0.0-0.7); Hematocrit 44.4 % (36.0-48.0); Hemoglobin 14.3 g/dL (12.0-16.0); Immature Granulocytes Abs Auto 0.06 10^3/uL (0.00-0.03); Immature Granulocytes Pct Auto 0.6 % (0.0-0.5); Lymphocytes Absolute Auto 2.5 10^3/uL (1.2-3.8); Lymphocytes Percent Auto 26.2 % (20.5-60.0); Mean Corpuscular HGB Conc 32.2 g/dL (29.9-35.2); Mean Corpuscular Hemoglobin 30.5 pg (26.7-34.0); Mean Corpuscular Volume 94.7 fL (81.0-99.0); Monocytes Percent Auto 10.6 % (1.7-12.0); Neutrophils Absolute Auto 5.7 10^3/uL (1.4-6.5); Neutrophils Percent Auto 59.8 % (43.0-75.0); Platelet Count 211 10^3/uL (150-450); Red Blood Count 4.69 10^6/uL (4.20-5.40); Red Cell Distribution Width 15.2 % (11.0-15.0); White Blood Count 9.5 10^3/uL (4.0-11.0)
[2025-01-19 09:11] LABS: Estimated Average Glucose 111 mg/dL; Glycohemoglobin A1C 5.5 % (4.5-6.2)
[2025-01-19 09:14] LABS: Anion Gap 14.4; Carbon Dioxide 26.9 mmol/L (21.0-32.0); Chloride 102 mmol/L (98-107); Glucose 115 mg/dL (74-106); Potassium 4.3 mmol/L (3.5-5.1); Sodium 139 mmol/L (136-145)
[2025-01-19 09:15] LABS: Alanine Aminotransferase 14 U/L (14-59); Albumin Globulin Ratio 1.1; Albumin Level 3.7 g/dL (3.4-5.0); Alkaline Phosphatase 103 U/L (46-116); Aspartate Amino Transferase 27 U/L (15-37); BUN Creatinine Ratio 21.9; Bilirubin Total 0.5 mg/dL (0.2-1.0); Calcium 9.3 mg/dL (8.5-10.1); Estimated GFR (African America >60 (>=60 mL/min/1.73m^2); Estimated GFR (Non-African Ame 56 (>=60 mL/min/1.73m^2); Globulin 3.5 g/dL; Thyroid Stimulating Hormone 1.809 uIU/mL (0.358-3.740); Total Protein 7.2 g/dL (6.4-8.2)
== END 2025-01-19 08:21 | disposition home or self-care (01) ==
LOC: LAB 08:24
PROVIDERS: PCP Internal Medicine; Visit Provider Internal Medicine
DX: R73.01 Impaired fasting glucose (principal); I10 Essential (primary) hypertension; R53.83 Other fatigue
CPT/HCPCS: 36415; 80053; 83036; 84443; 85025